=== PATIENT | male | born 1965 | race Caucasian/White ===

== ENCOUNTER → 2016-06-21 | Outpatient (CLI) | payer MEDICARE ==
--- NOTE | 2016-06-24 13:26 | XR ---
EXAMINATION TYPE: XR shoulder complete BILAT DATE OF EXAM: 06/21/2016 11:42 AM CLINICAL HISTORY: pain TECHNIQUE: Three views of the right shoulder are obtained. COMPARISON: None FINDINGS: There is no acute fracture/dislocation evident. The acromioclavicular and glenohumeral ashlee int spaces appear mildly narrowed. The visualized ribs are intact and unremarkable. IMPRESSION: 1. There is no acute fracture or dislocation. ICD 10 NO FRACTURE, INITIAL EVALUATION EXAMINATION TYPE: XR shoulder complete BILAT DATE OF EXAM: 06/21/2016 11:42 AM CLINICAL HISTORY: pain COMPARISON: NONE TECHNIQUE: Three views of the left shoulder are obtained. FINDINGS: There is no acute fracture/dislocation evident. The acromioclavicular and glenohumeral ashlee int spaces appear mildly narrowed. The visualized ribs are intact and unremarkable.
--- NOTE | 2016-06-24 13:28 | XR ---
EXAMINATION TYPE: XR Hip Bilateral Complete DATE OF EXAM: 06/21/2016 11:42 AM COMPARISON: NONE HISTORY: Hip pain TECHNIQUE: 2 views of the bilateral hips are submitted. FINDINGS: There is no evidence for fracture or dislocation. Hypertrophic changes are seen supra-aceta bular region likely resulting in bilateral femoral acetabular impingement. Hip joint spaces are intac t. No osseous lesions identified. IMPRESSION: Correlate for femoral acetabular impingement.
== END | disposition home or self-care (01) ==
LOC: RADXRYALE 11:16
PROVIDERS: ATTEND Family Medicine
DX: M25.551 Pain in right hip (principal); M25.552 Pain in left hip; M25.511 Pain in right shoulder; M25.512 Pain in left shoulder
CPT/HCPCS: 73521

== ENCOUNTER 2016-10-09 11:38 | Inpatient (IN) | payer MEDICARE ==
[2016-10-09] MEDS ORDERED: methylPREDNISolone SOD SUCCI 125 MG/2 ML VIAL IV STA (11:57)
[2016-10-09] MEDS ORDERED: IPRATROPIUM-ALBUTEROL 3 ML NEB INHALATION STA (11:57)
[2016-10-09] MEDS ORDERED: SODIUM CHLORIDE 0.9% 1,000 ML IV STA (11:57)
--- NOTE | 2016-10-09 11:57 | ED ---
SOB HPI - General Chief Complaint: Shortness of Breath Stated Complaint: cough,diff breathing Time Seen by Provider: 10/09/16 11:45 Source: patient, family, RN notes reviewed Mode of arrival: wheelchair Limitations: no limitations - History of Present Illness Initial Comments: Is a 50-year-old male with a history of COPD and 3 pneumothoraces who sent over by his doctor for evaluation for shortness of breath is been going on for several days. He has a cough with clear phlegm exertional dyspnea he states she 's chilled all a time he has no fevers or sweats. Chest pain. Just was not functioning very well is a decreased oral intake. MD Complaint: shortness of breath, cough - Related Data Home Medications Medication Instructions Recorded Confirmed Fluticasone/Salmeterol [Advair 1 inhalation PO RT-BID 10/09/16 10/09/16 250-50 Diskus] HYDROcodone/APAP 7.5-325MG [[place] 1 tab PO TID PRN 10/09/16 10/09/16 7.5-325] Tiotropium 18 Mcg/Puff [Spiriva] 1 cap INHALATION RT-DAILY 10/09/16 10/09/16 hydrOXYzine PAMOATE [Vistaril] 25 mg PO TID 10/09/16 10/09/16 Allergies Allergy/AdvReac Type Severity Reaction Status Date / Time No Known Allergies Allergy Verified 10/09/16 12:41 Review of Systems ROS Statement: Those systems with pertinent positive or pertinent negative responses have been documented in the HPI. ROS Other: All systems not noted in ROS Statement are negative. Past Medical History Past Medical History: COPD Additional Past Medical History / Comment(s): chronic hip pain, spontaneous pneumothorax x3 History of Any Multi-Drug Resistant Organisms: None Reported Additional Past Surgical History / Comment(s): chest tube Past Psychological History: Anxiety, Depression Smoking Status: Current every day smoker Past Alcohol Use History: None Reported Past Drug Use History: None Reported General Exam - General Exam Comments Initial Comments: This is a well-developed well-nourished awake alert oriented times female he is in apparent respiratory distress with dyspnea just with talking. Limitations: no limitations General appearance: alert, anxious, in distress Head exam: Present: atraumatic, normocephalic, normal inspection Eye exam: Present: normal appearance, PERRL, EOMI. Absent: scleral icterus, conjunctival injection, periorbital swelling ENT exam: Present: mucous membranes dry Neck exam: Present: normal inspection. Absent: tenderness, meningismus, lymphadenopathy Respiratory exam: Present: wheezes, rhonchi, decreased breath sounds. Absent: respiratory distress, rales, stridor Cardiovascular Exam: Present: normal rhythm, tachycardia, normal heart sounds. Absent: systolic murmur, diastolic murmur, rubs, gallop, clicks GI/Abdominal exam: Present: soft, normal bowel sounds. Absent: distended, tenderness, guarding, rebound, rigid Extremities exam: Present: normal inspection, full ROM, normal capillary refill. Absent: tenderness, pedal edema, joint swelling, calf tenderness Back exam: Present: normal inspection Neurological exam: Present: alert, oriented X3, CN II-XII intact Psychiatric exam: Present: normal affect, normal mood Skin exam: Present: warm, dry, intact, normal color. Absent: rash Course Vital Signs 10/09/16 10/09/16 10/09/16 11:40 11:43 12:13 Temperature 98.7 F Pulse Rate 106 H 116 H 100 Respiratory 27 H 26 H Rate Blood Pressure 101/59 109/56 O2 Sat by Pulse 98 85 L Oximetry 10/09/16 10/09/16 12:23 12:51 Temperature Pulse Rate 102 H 104 H Respiratory 20 Rate Blood Pressure 102/59 O2 Sat by Pulse 99 Oximetry - Reevaluation(s) Reevaluation #1: 10/09/16 14:42 Reevaluation patient reveals minimal improvement in his ability to breathe. Patient does state his blood pressure is always low Medical Decision Making - Medical Decision Making Reevaluation patient reveals that the patient is still having some difficulty with breathing. I did discuss the findings the patient and his family patient will be admitted for evaluation of pneumonia and COPD exacerbation. Is also demonstrate dehydration. And anemia. - Lab Data Result diagrams: 10/09/16 11:53 10/09/16 11:53 Lab Results 10/09/16 10/09/16 10/09/16 Range/Units 11:53 11:53 11:53 WBC 6.0 (3.8-10.6) k/uL RBC 2.72 L (4.30-5.90) m/uL Hgb 9.9 L (13.0-17.5) gm/dL Hct 29.1 L (39.0-53.0) % MCV 107.0 H (80.0-100.0) fL MCH 36.5 H (25.0-35.0) pg MCHC 34.1 (31.0-37.0) g/dL RDW 17.0 H (11.5-15.5) % Plt Count 237 (150-450) k/uL Neutrophils % 78 % Lymphocytes % 13 % Monocytes % 5 % Eosinophils % 1 % Basophils % 0 % Neutrophils # 4.7 (1.3-7.7) k/uL Lymphocytes # 0.8 L (1.0-4.8) k/uL Monocytes # 0.3 (0-1.0) k/uL Eosinophils # 0.1 (0-0.7) k/uL Basophils # 0.0 (0-0.2) k/uL Hypochromasia Slight Poikilocytosis Slight Anisocytosis Slight Macrocytosis Marked PT (9.0-12.0) sec INR (<1.1) APTT (22.0-30.0) sec D-Dimer (<0.60) mg/L FEU Sodium 137 (137-145) mmol/L Potassium 3.6 (3.5-5.1) mmol/L Chloride 99 (98-107) mmol/L Carbon Dioxide 24 (22-30) mmol/L Anion Gap 14 mmol/L BUN 20 (9-20) mg/dL Creatinine 0.70 (0.66-1.25) mg/dL Est GFR (MDRD) Af Amer >60 (>60 ml/min/1.73 sqM) Est GFR (MDRD) Non-Af >60 (>60 ml/min/1.73 sqM) Glucose 100 H (74-99) mg/dL Calcium 9.3 (8.4-10.2) mg/dL Magnesium 2.0 (1.6-2.3) mg/dL Total Bilirubin 1.8 H (0.2-1.3) mg/dL AST 27 (17-59) U/L ALT 17 L (21-72) U/L Alkaline Phosphatase 87 (38-126) U/L Total Creatine Kinase 50 L (55-170) U/L CK-MB (CK-2) 0.4 (0.0-2.4) ng/mL CK-MB (CK-2) Rel Index 0.8 Troponin I 0.035 H* (0.000-0.034) ng/mL NT-Pro-B Natriuret Pep pg/mL Total Protein 8.5 H (6.3-8.2) g/dL Albumin 4.3 (3.5-5.0) g/dL 10/09/16 10/09/16 Range/Units 11:53 11:53 WBC (3.8-10.6) k/uL RBC (4.30-5.90) m/uL Hgb (13.0-17.5) gm/dL Hct (39.0-53.0) % MCV (80.0-100.0) fL MCH (25.0-35.0) pg MCHC (31.0-37.0) g/dL RDW (11.5-15.5) % Plt Count (150-450) k/uL Neutrophils % % Lymphocytes % % Monocytes % % Eosinophils % % Basophils % % Neutrophils # (1.3-7.7) k/uL Lymphocytes # (1.0-4.8) k/uL Monocytes # (0-1.0) k/uL Eosinophils # (0-0.7) k/uL Basophils # (0-0.2) k/uL Hypochromasia Poikilocytosis Anisocytosis Macrocytosis PT 10.7 (9.0-12.0) sec INR 1.1 (<1.1) APTT 22.5 (22.0-30.0) sec D-Dimer 2.66 H (<0.60) mg/L FEU Sodium (137-145) mmol/L Potassium (3.5-5.1) mmol/L Chloride (98-107) mmol/L Carbon Dioxide (22-30) mmol/L Anion Gap mmol/L BUN (9-20) mg/dL Creatinine (0.66-1.25) mg/dL Est GFR (MDRD) Af Amer (>60 ml/min/1.73 sqM) Est GFR (MDRD) Non-Af (>60 ml/min/1.73 sqM) Glucose (74-99) mg/dL Calcium (8.4-10.2) mg/dL Magnesium (1.6-2.3) mg/dL Total Bilirubin (0.2-1.3) mg/dL AST (17-59) U/L ALT (21-72) U/L Alkaline Phosphatase (38-126) U/L Total Creatine Kinase (55-170) U/L CK-MB (CK-2) (0.0-2.4) ng/mL CK-MB (CK-2) Rel Index Troponin I (0.000-0.034) ng/mL NT-Pro-B Natriuret Pep 154 pg/mL Total Protein (6.3-8.2) g/dL Albumin (3.5-5.0) g/dL - EKG Data -: EKG Interpreted by Me EKG shows normal: sinus rhythm (Sinus tachycardia rate of 103. Interval 150 QRS of 82 QT/QTC of 334/437 rightward axis no acute ST-T wave changes) - Radiology Data Radiology results: report reviewed (I did review the imaging and reports on the x-ray weight lung field as well as opacified with patchy-appearing infiltrates. CAT scan was performed showed evidence of consolidation consistent with a pneumonia. No pulmonary embolism seen.), image reviewed Critical Care Time Critical Care Time: Yes Critical Care Time: 31 minutes of critical care time includes initial presentation with history physical labs and x-rays multiple re-evaluations patient response to therapy. Discussion with the admitting physician documentation the above admission orders Disposition Clinical Impression: Acute exacerbation of chronic obstructive airways disease, Adult respiratory distress syndrome, Right lower lobe pneumonia, Dehydration Disposition: ADMITTED IP TO THIS HOSP Condition: Stable Referrals: Yang Corrigan DO [Primary Care Provider] - 1-2 days
[2016-10-09 12:17] LABS: Anisocytosis Slight; Basophils % (A) 0 %; CH 35.7; CHCM 33.5; Eosinophils # (A) 0.1 k/uL (0-0.7); Eosinophils % (A) 1 %; HCT 29.1 % (39.0-53.0); HDW 3.57; HGB 9.9 gm/dL (13.0-17.5); Hypochromasia Slight; Luc # (Auto) 0.16; Luc % (Auto) 3; Lymphocytes # (A) 0.8 k/uL (1.0-4.8); Lymphocytes % (A) 13 %; MCH 36.5 pg (25.0-35.0); MCHC 34.1 g/dL (31.0-37.0); Macrocytosis Marked; Mean Platelet Volume 7.4; Monocytes # (A) 0.3 k/uL (0-1.0); Monocytes % (A) 5 %; Neutrophils # (A) 4.7 k/uL (1.3-7.7); Neutrophils % (A) 78 %; Poikilocytosis Slight; RBC 2.72 m/uL (4.30-5.90); WBC (Perox) 6.26
[2016-10-09 12:26] LABS: ALT 17 U/L (21-72); AST 27 U/L (17-59); Alkaline Phosphatase 87 U/L (38-126); Anion Gap 14 mmol/L; Blood Urea Nitrogen 20 mg/dL (9-20); Calcium 9.3 mg/dL (8.4-10.2); Carbon Dioxide 24 mmol/L (22-30); Chloride 99 mmol/L (98-107); Glucose 100 mg/dL (74-99); Non-African American GFR(MDRD) >60 (>60 ml/min/1.73 sqM); Potassium 3.6 mmol/L (3.5-5.1); Sodium 137 mmol/L (137-145); Total Bilirubin 1.8 mg/dL (0.2-1.3); Total Protein 8.5 g/dL (6.3-8.2)
[2016-10-09 12:38] LABS: INR 1.1 (<1.1); Partial Thromboplastin Time 22.5 sec (22.0-30.0); Prothrombin Time 10.7 sec (9.0-12.0)
[2016-10-09 12:54] LABS: Creatine Kinase MB 0.4 ng/mL (0.0-2.4)
[2016-10-09 12:56] LABS: Troponin I 0.035 ng/mL (0.000-0.034)
[2016-10-09] MEDS ORDERED: RX INFO: IV CONTRAST WAS GIVEN 1 EACH MISC MISCELLANE PRN (13:02)
--- NOTE | 2016-10-09 13:04 | XR ---
EXAMINATION TYPE: XR chest 2V DATE OF EXAM: 10/09/2016 HISTORY: difficulty breathing. REFERENCE: Previous study dated 02/13/2016. FINDINGS: The lungs are overinflated. There is worsening interstitial fibrosis. There is confluent ai rspace disease in the right upper lobe. I could not exclude superimposed pneumonia. There is evidence of old granulomatous disease. Heart size is normal. There is stable blunting of the right CP angle w hich likely reflects pleural thickening. IMPRESSION: 1. COPD. 2. I CANNOT EXCLUDE SUPERIMPOSED RIGHT UPPER LOBE PNEUMONIA. 3. EVIDENCE OF OLD GRANULOMATOUS DISEASE.
--- NOTE | 2016-10-09 13:53 | CT ---
EXAMINATION TYPE: CT angio chest DATE OF EXAM: 10/09/2016 1:38 PM COMPARISON: Previous study dated 02/16/2016 HISTORY: cough, elevated d dimer CT DLP: 126.7 mGycm Automated exposure control for dose reduction was used. CONTRAST: CTA scan of the thorax is performed with IV Contrast, patient injected with 100 mL of Omnipaque 350, pulmonary embolism protocol. . FINDINGS: There is extensive bullous change in the upper lobes bilaterally. There is dense consolidat ion in the posterior segment of the right upper lobe. There is also some consolidation in the right u pper lobe. The major bronchi are patent. There is extensive peripheral fibrosis. There is no significant axillary, mediastinal or hilar adenopathy. The aorta is normal in caliber wit hout evidence of dissection. There is no pleural or pericardial fluid. The heart is not enlarged. There is hypertrophic spondylosis within the spine. IMPRESSION: 1. THIS EXAMINATION IS NEGATIVE FOR PULMONARY EMBOLUS. 2. SEVERE COPD. 3. DENSE CONSOLIDATION OF THE POSTERIOR SEGMENT OF THE RIGHT UPPER LOBE. THIS LIKELY REFLECTS PNEUMON IA. 4. DEGENERATIVE CHANGES WITHIN THE SPINE.
[2016-10-09] MEDS ORDERED: LEVOFLOXACIN 750MG-D5W PMX 750 MG in DEXTROSE/WATER 1 150ML.BAG IVPB STA (14:43)
[2016-10-09] MEDS ORDERED: PNEUMONIA PROTOCOL UTILIZED 1 EACH MISC PO PRN (14:44)
[2016-10-09] MEDS ORDERED: PIPERACILLIN-TAZOBACTAM 3.375 GM in DEXTROSE/WATER 1 50ML.BAG IVPB ONE (15:30)
[2016-10-09] MEDS: IPRATROPIUM-ALBUTEROL 3 ML NEB INHALATION SCH ×3 (16:21→23:15)
[2016-10-09] MEDS: SODIUM CHLORIDE 0.9% 1,000 ML IV SCH (17:19)
[2016-10-09] MEDS ORDERED: methylPREDNISolone SOD SUCCI 125 MG/2 ML VIAL IV SCH (18:00)
[2016-10-09] MEDS: SYMBICORT 80-4.5 MCG INHALER INHALATION SCH (19:22)
[2016-10-09] MEDS: NICOTINE 21MG/24HR PATCH TRANSDERM SCH (20:04)
[2016-10-09] MEDS: HYDROcodone/APAP 7.5-325MG 1 EACH TAB PO PRN (20:04)
[2016-10-09] MEDS ORDERED: hydrOXYzine PAMOATE 25 MG CAP PO PRN (22:17)
[2016-10-09] MEDS ORDERED: ALPRAZolam 0.25 MG TAB PO PRN (22:18)
[2016-10-09] MEDS: HEPARIN SODIUM,PORCINE 5,000 UNIT/ML 1 ML VIAL SQ SCH (23:41)
[2016-10-10] MEDS: PIPERACILLIN-TAZOBACTAM 3.375 GM in DEXTROSE/WATER 1 50ML.BAG IVPB SCH ×3 (00:52→16:51)
[2016-10-10] MEDS: IPRATROPIUM-ALBUTEROL 3 ML NEB INHALATION SCH ×6 (03:43→23:44)
[2016-10-10 06:03] LABS: Anisocytosis Slight; Basophils % (A) 0 %; CH 35.4; CHCM 33.4; Eosinophils % (A) 0 %; HCT 24.8 % (39.0-53.0); HDW 3.64; HGB 8.5 gm/dL (13.0-17.5); Hypochromasia Slight; Luc # (Auto) 0.06; Luc % (Auto) 2; Lymphocytes # (A) 0.4 k/uL (1.0-4.8); Lymphocytes % (A) 12 %; MCH 36.4 pg (25.0-35.0); MCHC 34.2 g/dL (31.0-37.0); MCV 106.3 fL (80.0-100.0); Macrocytosis Moderate; Mean Platelet Volume 7.8; Monocytes # (A) 0.1 k/uL (0-1.0); Monocytes % (A) 4 %; Neutrophils % (A) 82 %; Poikilocytosis Slight; RBC 2.33 m/uL (4.30-5.90); RDW 16.7 % (11.5-15.5); WBC 3.6 k/uL (3.8-10.6); WBC (Perox) 3.67
[2016-10-10 06:15] LABS: Anion Gap 9 mmol/L; Blood Urea Nitrogen 17 mg/dL (9-20); Calcium 8.9 mg/dL (8.4-10.2); Carbon Dioxide 24 mmol/L (22-30); Chloride 104 mmol/L (98-107); Glucose 133 mg/dL (74-99); Non-African American GFR(MDRD) >60 (>60 ml/min/1.73 sqM); Potassium 3.7 mmol/L (3.5-5.1); Sodium 137 mmol/L (137-145)
[2016-10-10] MEDS: PANTOPRAZOLE 40 MG TABLET PO SCH (08:11)
[2016-10-10] MEDS: HYDROcodone/APAP 7.5-325MG 1 EACH TAB PO PRN ×3 (08:11→23:45)
[2016-10-10] MEDS: NICOTINE 21MG/24HR PATCH TRANSDERM SCH (08:11)
[2016-10-10] MEDS: HEPARIN SODIUM,PORCINE 5,000 UNIT/ML 1 ML VIAL SQ SCH ×2 (08:12→20:03)
--- NOTE | 2016-10-10 09:29 | HP ---
DATE OF ADMISSION: 10/09/2016 CHIEF COMPLAINT: Shortness of breath, cough and sputum. HISTORY OF PRESENT ILLNESS: This 50-year-old gentleman with a past medical history of multiple medical problems including chronic obstructive pulmonary disease, history of prostate disorder, history of chronic hip pain, spontaneous pneumothorax on the right side, history of chest tube times three being followed by Dr. Yang Corrigan in the outpatient setting moved from [place] a year ago. The patient lives alone in an apartment without any steps. The patient also had a home oxygen concentrator. The patient had progressively having dizziness, shortness of breath and cough and sputum. The patient came to [facility] and admitted to the hospital for further evaluation and treatment. 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 The evaluation showed chest x-ray showed right upper lobe pneumonia and evidence of old granulomatous disease was also noted and CT Angio showed severe COPD and dense consolidation of the posterior segment of the right upper lobe, pneumonia and DJD of the spine, the patient was admitted to the hospital for further evaluation and treatment. Patient had some also. There is no history of any rigors. No history of headache, 's loss of consciousness, or seizures. PAST MEDICAL HISTORY: COPD, prostate disorder, chronic hip pain, chronic respiratory failure, anxiety, depression. MEDICATIONS: Prior to admission include: 1. Vistaril 25 mg t.i.d. 2. Spiriva 1 puff daily. 3. [place] 7.25 t.i.d. p.r.n. 4. Advair 250/50 1 puff b.i.d. ALLERGIES: None. FAMILY HISTORY: History of cancer, coronary artery disease, lung cancer, lymphoma. Cancer. SOCIAL HISTORY: No history of alcohol intake. History of current smoker. REVIEW OF SYSTEMS: ENT: Diminishing hearing. Diminished vision. CARDIOVASCULAR: No angina or palpitations. RESPIRATORY: As mentioned earlier. GASTROINTESTINAL: No nausea or vomiting. GENITOURINARY: No dysuria. CENTRAL NERVOUS SYSTEM: As mentioned earlier. ALLERGY/IMMUNOLOGY: No asthma or hayfever. MUSCULOSKELETAL: As mentioned earlier. HEMATOLOGY/ONCOLOGY: No history of anemia. ENDOCRINE: No history of hypothyroidism and diabetes mellitus. CONSTITUTIONAL: As mentioned earlier. DERMATOLOGY: Negative. RHEUMATOLOGY: Negative. PSYCHIATRY: As mentioned earlier. PHYSICAL EXAMINATION: The patient is alert and oriented times three. Pulse 100. Blood pressure 120/77. Respiratory 18, temperature 97 degrees, pulse ox 97% on 2 liters. HEENT: Conjunctivae normal. Oral mucosa moist. NECK: No jugular venous distention. No lymph node enlargement. CARDIOVASCULAR SYSTEM: S1, S2 muffled. No S3, no S4. RESPIRATORY: Breath sounds diminished in the bases. Breathing efforts markedly increased. Bilateral scattered rhonchi. Expiratory wheezing and crackles, right more than left. ABDOMEN: Soft. Discomfort. Nontender. No mass palpable. LEGS: No edema. No swelling. CENTRAL NERVOUS SYSTEM: Higher function as mentioned. Moves all four limbs. No focal deficits. LYMPHATICS: No lymph nodes palpable in the neck, axillae or groin. SKIN: No ulcer, rash, bleeding. Labs at this time show WBC 6, hemoglobin 9.8. MCV 107. Otherwise is D. dimer is 2.66, total bilirubin 1.8. Troponin 0.35 and total protein 8.5. ASSESSMENT: 1. Chronic obstructive pulmonary disease acute exacerbation with acute bilateral pneumonia, right more than the left, possibly gram-negative with acute hypoxic respiratory failure, present on admission. 2. Rule out atypical organisms. 3. Weight loss with severe protein calorie malnutrition with body mass index 16.5 for evaluation. 4. Increased d. dimer without any evidence of pulmonary embolism. 5. Increased total bilirubin. 6. History of continued ongoing nicotine dependence. 7. Anemia, macrocytic. 8. History of prostate disorder. 9. History of chronic hypoxic respiratory failure on 2 liters nasal cannula. 10. History of spontaneous pneumothorax on the right side. 11. History of memory loss. 12. History of chest tube. 13. Anxiety, depression, not otherwise specified. 14. FULL CODE. RECOMMENDATIONS AND DISCUSSION: This 50-year-old gentleman who presented with multiple complex medical issues. We will monitor the patient closely. Continue the current medications and continue symptomatic treatment. Recommend broad-spectrum IV antibiotics, bronchodilators, hold steroids for now and continue to monitor. We will obtain Dr. Salinas's input and continue to monitor. Guarded prognosis because of multiple complex medical issues. The patient is being followed by. Resume the home medications. Deep venous thrombosis prophylaxis. See orders for further details. A copy of dictating being forwarded to Dr. Salinas who is the primary physician. Labs are ordered. Please refer to the chart for further details. Further recommendations to follow. MTDD
--- NOTE | 2016-10-10 09:35 | XR ---
EXAMINATION TYPE: XR chest 2V DATE OF EXAM: 10/10/2016 COMPARISON: 10/09/2016 HISTORY: 50-year-old male pneumonia TECHNIQUE: Frontal and lateral views FINDINGS: Heart is normal size. Aorta within normal limits. Surgical changes at the right apex. Hyperinflation and relative upper lung lucencies with emphysematous cysts seen in the upper lobes.. Similar to sligh tly increased infiltrate right upper lobe and similar at the right base. No pleural effusion. IMPRESSION: Advanced emphysema and similar to slightly increased extensive consolidation right upper lobe.
[2016-10-10] MEDS: SYMBICORT 80-4.5 MCG INHALER INHALATION SCH ×2 (13:18→20:30)
[2016-10-10] MEDS: SODIUM CHLORIDE 0.9% 1,000 ML IV SCH (13:44)
--- NOTE | 2016-10-10 16:34 | P.CNPUL ---
History of Present Illness Consult date: 10/10/16 Reason for consult: COPD, pneumonia History of present illness: A very pleasant 50-year-old male patient presented to the hospital because of worsening shortness of breath. The patient has advanced COPD and has been oxygen dependent and typically uses oxygen overnight. He also has been maintained on a combination of Spiriva and Advair. The patient has lived in [place] in the past and he also has lived briefly in [facility] and currently is in [place] for the past 1 year. He uses pro-air rescue inhaler on an as-needed basis. Denies having any previous of pneumonia. Approximately a week ago, he started having increased chest congestion, discomfort and pain over the right anterior chest area more so in the upper chest, and increased shortness of breath. Denied having any fever. Denied having any nausea vomiting or diarrhea. No reported change in mental status. 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 He came to the hospital for this problem and he was found to have an extensive right upper lobe pneumonia and the CAT scan of the chest showed extensive emphysematous changes bilaterally more so in the upper lobes. The patient tells me that he has been smoking still. He also has had previous history of bilateral pneumothoraces at the young age requiring breath or chest tube insertion and he has had chemical pleurodesis on the left. No aspiration. No travel history. No sick contacts. No fever. No chills. No hemoptysis. No pleurisy. Review of Systems All systems: negative Constitutional: Denies chills, Denies fever Eyes: denies blurred vision, denies pain Ears, nose, mouth and throat: Denies headache, Denies sore throat Cardiovascular: Denies chest pain, Denies shortness of breath Respiratory: Denies cough Gastrointestinal: Denies abdominal pain, Denies diarrhea, Denies nausea, Denies vomiting Musculoskeletal: Denies myalgias Integumentary: Denies pruritus, Denies rash Neurological: Denies numbness, Denies weakness Psychiatric: Denies anxiety, Denies depression Endocrine: Denies fatigue, Denies weight change Past Medical History Past Medical History: COPD, Prostate Disorder Additional Past Medical History / Comment(s): abdominal aortic aneurysm, difficulties with memory, chronic hypoxic respiratory failure, advanced COPD with upper lobe predominance, history of bilateral pneumothoraces at the young age requiring breath or chest tube insertion and pleurodesis. The patient also has BPH and chronic degenerative arthritis and hip pain on the right. History of Any Multi-Drug Resistant Organisms: None Reported Additional Past Surgical History / Comment(s): chest tube 3 x Past Anesthesia/Blood Transfusion Reactions: No Reported Reaction Additional Past Anesthesia/Blood Transfusion Reaction / Comment(s): pt stated he moved here from [place] a year ago. lives alone in [facility]-no steps. no outside services received. has home [employer] no pets. no past service. 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 Past Psychological History: Anxiety, Depression Additional Psychological History / Comment(s): pt denies wanting to harm self, stated some mild depression d/t not being able to do much d/t copd.(continues to smoke 1 ppd) Smoking Status: Current every day smoker Past Alcohol Use History: None Reported Past Drug Use History: None Reported - Past Family History Father History Unknown: Yes Mother Family Medical History: Cancer, Coronary Artery Disease (CAD) Additional Family Medical History / Comment(s): lung cancer, lynphoma, female cancer, Medications and Allergies Home Medications Medication Instructions Recorded Confirmed Type Fluticasone/Salmeterol [Advair 1 inhalation PO RT-BID 10/09/16 10/09/16 History 250-50 Diskus] HYDROcodone/APAP 7.5-325MG [[place] 1 tab PO TID PRN 10/09/16 10/09/16 History 7.5-325] Tiotropium 18 Mcg/Puff [Spiriva] 1 cap INHALATION RT-DAILY 10/09/16 10/09/16 History hydrOXYzine PAMOATE [Vistaril] 25 mg PO TID 10/09/16 10/09/16 History Allergies Allergy/AdvReac Type Severity Reaction Status Date / Time No Known Allergies Allergy Verified 10/09/16 12:41 Physical Exam Vitals: Vital Signs Temp Pulse Pulse Resp BP Pulse Ox 10/10/16 16:00 97.5 F L 97 20 95/54 97 10/10/16 13:35 85 10/10/16 13:20 98 10/10/16 11:31 96.6 F L 98 20 93/55 97 10/10/16 08:00 97.1 F L 99 20 92/55 99 10/10/16 04:00 96.5 F L 94 18 94/53 99 10/10/16 03:55 80 10/10/16 03:43 76 10/10/16 00:00 96.3 F L 89 18 113/56 93 L 10/09/16 23:27 84 10/09/16 23:16 80 10/09/16 20:00 97.0 F L 100 18 127/70 97 10/09/16 19:36 100 10/09/16 19:22 98 10/09/16 16:32 100 10/09/16 16:21 100 Intake and Output 10/10/16 10/10/16 10/10/16 06:59 14:59 22:59 Intake Total 850 1250 Output Total 325 Balance 850 925 Intake: IV 850 1250 Piperacillin-Tazobactam 3 50 50 .375 gm In Dextrose/Water 1 50ml.bag @ 12.5 mls/hr IVPB ONCE ONE Rx#: [id number] Sodium Chloride 0.9% 1, 800 1200 000 ml @ 100 mls/hr IV . Q10H EBONI Rx#:[id number] Output: Urine 325 Other: Voiding Method Urinal # Voids 2 Weight 60.6 kg 60.6 kg Patient Weight 10/11/16 06:59 Weight 60.6 kg Thin, comfortable likely distress not using his incentive muscles of breathing.Head exam was generally normal. There was no scleral icterus or corneal arcus. Mucous membranes were moist.Neck was supple and without jugular venous distension, thyromegaly, or carotid bruits. Carotids were easily palpable bilaterally. There was no adenopathy. Lung sounds are diminished bilaterally along with some few scattered expiratory wheezes heard throughout lung levine.Cardiac exam revealed the PMI to be normally situated and sized. The rhythm was regular and no extrasystoles were noted during several minutes of auscultation. The first and second heart sounds were normal and physiologic splitting of the second heart sound was noted. There were no murmurs, rubs, clicks, or gallops.Abdominal exam revealed normal bowel sounds. The abdomen was soft, non-tender, and without masses, organomegaly, or appreciable enlargement of the abdominal aorta. Examination of the extremities revealed easily palpable radial, femoral and pedal pulses. There was no cyanosis, clubbing or edema. Results - Laboratory Findings CBC and BMP: 10/10/16 05:35 10/10/16 05:35 PT/INR, D-dimer PT 10.7 sec (9.0-12.0) 10/09/16 11:53 INR 1.1 (<1.1) 10/09/16 11:53 D-Dimer 2.66 mg/L FEU (<0.60) H 10/09/16 11:53 Abnormal lab findings: Abnormal Labs 10/09/16 10/09/16 10/09/16 11:53 11:53 11:53 WBC RBC 2.72 L Hgb 9.9 L Hct 29.1 L MCV 107.0 H MCH 36.5 H RDW 17.0 H Lymphocytes # 0.8 L ESR D-Dimer Glucose 100 H Total Bilirubin 1.8 H ALT 17 L Total Creatine Kinase 50 L Troponin I 0.035 H* C-Reactive Protein Total Protein 8.5 H 10/09/16 10/09/16 10/10/16 11:53 11:53 05:35 WBC RBC Hgb Hct MCV MCH RDW Lymphocytes # ESR >140 H D-Dimer 2.66 H Glucose Total Bilirubin ALT Total Creatine Kinase Troponin I C-Reactive Protein 125.3 H Total Protein 10/10/16 10/10/16 05:35 05:35 WBC 3.6 L RBC 2.33 L Hgb 8.5 L Hct 24.8 L MCV 106.3 H MCH 36.4 H RDW 16.7 H Lymphocytes # 0.4 L ESR D-Dimer Glucose 133 H Total Bilirubin ALT Total Creatine Kinase Troponin I C-Reactive Protein Total Protein - Diagnostic Findings Chest x-ray: image reviewed CT scan - chest: image reviewed Assessment and Plan Plan: Assessment 1 acute COPD exacerbation with secondary shortness of breath 2 acute right upper lobe pneumonia. The patient has extensive consolidation of the right upper lobe. 3 advanced oxygen-dependent COPD with extensive emphysematous changes bilaterally more so in the upper lobes 4 history of bilateral pneumothoraces requiring chest tube insertion and pleurodesis 5 smoking 6 exertional dyspnea 7 weight loss Plan Agree on the current treatment. Continue Zosyn and Levaquin. Continue local rhinitis. Continue systemic steroids. Plan sputum Gram stain and culture. We' ll follow-up chest x-ray. Smoking cessation counseling was done. Outpatient medications are all appropriate. We'll follow.
[2016-10-10] MEDS: TIOTROPIUM 18 MCG/PUFF INHALER INHALATION SCH (16:41)
[2016-10-10] MEDS: LEVOFLOXACIN 750 MG TAB PO SCH (16:50)
--- NOTE | 2016-10-10 20:59 | P.CONS ---
History of Present Illness - Reason for Consult Consult date: 10/10/16 - Chief Complaint Progressive shortness of breath - History of Present Illness 50-year-old male who has evidence of oxygen dependent COPD with history of spontaneous pneumothorax from the right lung follows with Dr. Yang Christianson. The patient is originally from [place]. He had been here visiting family members a couple years ago and noticed while he was here he felt considerably better. He constantly moved to this area to be close to his brother. Shortly after arrival his respiratory status did improve and was feeling better for a bit. Relates he's had some exacerbations of his COPD since here at this is the first time in the last. He is actually had hospitalization. He relates that over the weekend he did some grilling and spent some time outside. Shortly thereafter he had increasing shortness of breath cough fever and malaise. He felt considerably worse and was seen in the outpatient office. He comes of his significant shortness of breath and tachycardia he was admitted to hospital for further intervention. The patient is feeling slightly better at this point in time. He is less short of breath is long as he doesn't have any activity. He relates even minimal exertion makes him more short of breath and his heart rate increases. He is denying chest pain at this time. He was having a large amount of sputum production that has now tapered off since coming to hospital. He is denying hemoptysis. In general he is noting fatigue but has a good appetite. His lost weight over time due to his pulmonary disease. Review of Systems 50-year-old male who looks older than his stated age seems to be comfortable at this time HEENT:Denies headache or acute visual change. Denies sinus or mouth discomforts. Denies neck stiffness or pain. Denies significant oral cavity pain. Denies difficulty on swallowing. Lungs: As per the HPI Cardiovascular: Denies chest pain at this time. No syncope. Does have dyspnea on exertion. It does not have PND does not have orthopnea. Gastrointestinal:Denies nausea, vomiting, diarrhea, constipation, hematemesis, melena, hematochezia. No no significant change of bowel habit noticed. Musculoskeletal: denies significant myalgias or arthralgias. No new joint swelling. Denies new back pain. Skin: Denies new rash or lesions. No new ulcers or wounds are related.. Neuro: Denies headache or visual change. Denies any new onset weakness or difficulty with ambulation. Denies falls or seizures. Psychiatric:Denies anxiety or depression. Endocrine: His had progressive weight loss and increasing fatigue over the last several months Past Medical History Past Medical History: COPD, Prostate Disorder Additional Past Medical History / Comment(s): abdominal aortic aneurysm, difficulties with memory, chronic hypoxic respiratory failure, advanced COPD with upper lobe predominance, history of bilateral pneumothoraces at the young age requiring breath or chest tube insertion and pleurodesis. The patient also has BPH and chronic degenerative arthritis and hip pain on the right. History of Any Multi-Drug Resistant Organisms: None Reported Additional Past Surgical History / Comment(s): chest tube 3 x Past Anesthesia/Blood Transfusion Reactions: No Reported Reaction Additional Past Anesthesia/Blood Transfusion Reaction / Comm: pt stated he moved here from [place] a year ago. lives alone in [facility]-no steps. no outside services received. has home /[facility]. no pets. no past service. 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 Past Psychological History: Anxiety, Depression Additional Psychological History / Comment(s): pt denies wanting to harm self, stated some mild depression d/t not being able to do much d/t copd.(continues to smoke 1 ppd). As noted continues to smoke despite his oxygen-dependent COPD. Alcohol use or abuse. Denies recreational drug use. No experience. No international travel. No animal exposures. Is not and has no children Smoking Status: Current every day smoker Past Alcohol Use History: None Reported Past Drug Use History: None Reported - Past Family History Father History Unknown: Yes Mother Family Medical History: Cancer, Coronary Artery Disease (CAD) Additional Family Medical History / Comment(s): lung cancer, lynphoma, female cancer, Medications and Allergies Home Medications and Allergies Comment(s): Current Medications Hydrocodone Bitart/Acetaminophen (Card[place] 7.5-325) 1 each PO TID PRN PRN Reason: Pain Last Admin: 10/10/16 16:50 Dose: 1 each Albuterol/Ipratropium (Duoneb 0.5 Mg-3 Mg/3 Ml Soln) 3 ml INHALATION RT-Q4H EBONI Last Admin: 10/10/16 20:30 Dose: 3 ml Alprazolam (Xanax) 0.25 mg PO TID PRN PRN Reason: Anxiety Budesonide/Formoterol Fumarate (Symbicort 80-4.5 Mcg Inhaler) 2 puff INHALATION RT-BID [facility] Last Admin: 10/10/16 20:30 Dose: 2 puff Heparin Sodium (Porcine) (Heparin) 5,000 unit SQ Q12HR [facility] Last Admin: 10/10/16 20:03 Dose: 5,000 unit Hydromorphone HCl (Dilaudid) 0.5 mg IVP Q6HR PRN PRN Reason: Severe Pain Hydroxyzine Pamoate (Vistaril) 25 mg PO TID PRN PRN Reason: Itching Piperacillin/Tazobactam/ (Dextrose 3.375 gm/ IV Solution) 50 mls @ 12.5 mls/hr IVPB Q8HR [facility] Stop: 10/19/16 00:01 Last Admin: 10/10/16 16:51 Dose: 12.5 mls/hr Sodium Chloride (Saline 0.9%) 1,000 mls @ 100 mls/hr IV .Q10H [facility] Last Admin: 10/10/16 13:44 Dose: 100 mls/hr Levofloxacin (Levaquin) 750 mg PO DAILY@1500 [facility] Stop: 10/15/16 15:01 Last Admin: 10/10/16 16:50 Dose: 750 mg Miscellaneous Information (Rx Info: Iv Contrast Was Given) 1 each MISCELLANE DAILY PRN PRN Reason: Per Protocol Stop: 10/11/16 13:02 Miscellaneous Information (Pneumonia Protocol Utilized) 1 each PO ONCE PRN PRN Reason: Per Protocol Nicotine (Habitrol 21mg/24hr Patch) 1 patch TRANSDERM DAILY [facility] Last Admin: 10/10/16 08:11 Dose: 1 patch Pantoprazole Sodium (Protonix) 40 mg PO AC-BRKFST [facility] Last Admin: 10/10/16 08:11 Dose: 40 mg Temazepam (Restoril) 15 mg PO HS PRN PRN Reason: Insomnia Tiotropium [place] (Spiriva) 1 puff INHALATION RT-DAILY [facility] Last Admin: 10/10/16 16:41 Dose: Not Given Home Medications Medication Instructions Recorded Confirmed Type Fluticasone/Salmeterol [Advair 1 inhalation PO RT-BID 10/09/16 10/09/16 History 250-50 Diskus] HYDROcodone/APAP 7.5-325MG [[place] 1 tab PO TID PRN 10/09/16 10/09/16 History 7.5-325] Tiotropium 18 Mcg/Puff [Spiriva] 1 cap INHALATION RT-DAILY 10/09/16 10/09/16 History hydrOXYzine PAMOATE [Vistaril] 25 mg PO TID 10/09/16 10/09/16 History Allergies Allergy/AdvReac Type Severity Reaction Status Date / Time No Known Allergies Allergy Verified 10/09/16 12:41 Physical Exam Vitals: Vital Signs Temp Pulse Pulse Resp BP Pulse Ox 10/10/16 20:33 95 10/10/16 20:00 97.1 F L 98 18 94/50 100 10/10/16 16:59 94 10/10/16 16:44 109 H 10/10/16 16:00 97.5 F L 97 20 95/54 97 10/10/16 13:35 85 10/10/16 13:20 98 10/10/16 11:31 96.6 F L 98 20 93/55 97 10/10/16 08:00 97.1 F L 99 20 92/55 99 10/10/16 04:00 96.5 F L 94 18 94/53 99 10/10/16 03:55 80 10/10/16 03:43 76 10/10/16 00:00 96.3 F L 89 18 113/56 93 L 10/09/16 23:27 84 10/09/16 23:16 80 Intake and Output 10/10/16 10/10/16 10/10/16 06:59 14:59 22:59 Intake Total 850 1710 Output Total 325 600 Balance 850 1385 -600 Intake: IV 850 1250 Piperacillin-Tazobactam 3 50 50 .375 gm In Dextrose/Water 1 50ml.bag @ 12.5 mls/hr IVPB ONCE ONE Rx#: [id number] Sodium Chloride 0.9% 1, 800 1200 000 ml @ 100 mls/hr IV . Q10H EBONI Rx#:[id number] Oral 460 Output: Urine 325 600 Other: Voiding Method Urinal Urinal # Voids 2 Weight 60.6 kg 60.6 kg Patient Weight 10/11/16 06:59 Weight 60.6 kg 50-year-old male appears older than his stated age. Is comfortable since he is resting quietly. Is a very thin build not cachectic HEENT: Anicteric conjunctiva are pink and moist nasal mucosa grossly intact without significant lesions, there is no thrush. Fully edentulous no thrush Neck: The neck is supple without significant lymphadenopathy or thyromegaly. Lungs: There is symmetrical air entry. Expiratory wheezes are through the lung levine. Crackles at the bases. Few bronchial sounds are heard in the right lateral upper posterior aspect of the chest no dullness or egophony is noted Heart: Regular rate and rhythm with an audible S1-S2, no S3 no S4. There is no significant murmur click or rub, PMI was nondisplaced. Abdomen: Positive bowel sounds soft and nontender without palpable masses or organomegaly. There was no guarding or rebound. Extremities: The upper extremities have excellent pulses they are symmetric, no significant petechiae or telangiectasia. No splinter hemorrhages were noted. The lower extremities are free from significant edema. The peripheral pulses were 2+ and symmetric. Neuro: Awake alert oriented to person place and time. There are no acute new gross focal sensory motor deficits. Results CBC & Chem 7: 10/10/16 05:35 10/10/16 05:35 Labs: Abnormal Lab Results - Last 24 Hours (Table) 10/09/16 10/10/16 10/10/16 Range/Units 11:53 05:35 05:35 WBC 3.6 L (3.8-10.6) k/uL RBC 2.33 L (4.30-5.90) m/uL Hgb 8.5 L (13.0-17.5) gm/dL Hct 24.8 L (39.0-53.0) % MCV 106.3 H (80.0-100.0) fL MCH 36.4 H (25.0-35.0) pg RDW 16.7 H (11.5-15.5) % Lymphocytes # 0.4 L (1.0-4.8) k/uL ESR >140 H (0-15) mm/hr Glucose (74-99) mg/dL C-Reactive Protein 125.3 H (<10.0) mg/L 10/10/16 Range/Units 05:35 WBC (3.8-10.6) k/uL RBC (4.30-5.90) m/uL Hgb (13.0-17.5) gm/dL Hct (39.0-53.0) % MCV (80.0-100.0) fL MCH (25.0-35.0) pg RDW (11.5-15.5) % Lymphocytes # (1.0-4.8) k/uL ESR (0-15) mm/hr Glucose 133 H (74-99) mg/dL C-Reactive Protein (<10.0) mg/L Microbiology - Last 24 Hours (Table) 10/09/16 11:53 Blood Culture - Preliminary Blood No Growth after 24 hours Laboratory Results WBC 3.6 k/uL (3.8-10.6) L 10/10/16 05:35 RBC 2.33 m/uL (4.30-5.90) L 10/10/16 05:35 Hgb 8.5 gm/dL (13.0-17.5) L 10/10/16 05:35 Hct 24.8 % (39.0-53.0) L 10/10/16 05:35 MCV 106.3 fL (80.0-100.0) H 10/10/16 05:35 MCH 36.4 pg (25.0-35.0) H 10/10/16 05:35 MCHC 34.2 g/dL (31.0-37.0) 10/10/16 05:35 RDW 16.7 % (11.5-15.5) H 10/10/16 05:35 Plt Count 198 k/uL (150-450) 10/10/16 05:35 Neutrophils % 82 % 10/10/16 05:35 Lymphocytes % 12 % 10/10/16 05:35 Monocytes % 4 % 10/10/16 05:35 Eosinophils % 0 % 10/10/16 05:35 Basophils % 0 % 10/10/16 05:35 Neutrophils # 3.0 k/uL (1.3-7.7) 10/10/16 05:35 Lymphocytes # 0.4 k/uL (1.0-4.8) L 10/10/16 05:35 Monocytes # 0.1 k/uL (0-1.0) 10/10/16 05:35 Eosinophils # 0.0 k/uL (0-0.7) 10/10/16 05:35 Basophils # 0.0 k/uL (0-0.2) 10/10/16 05:35 Hypochromasia Slight 10/10/16 05:35 Poikilocytosis Slight 10/10/16 05:35 Anisocytosis Slight 10/10/16 05:35 Macrocytosis Moderate 10/10/16 05:35 ESR >140 mm/hr (0-15) H 10/10/16 05:35 PT 10.7 sec (9.0-12.0) 10/09/16 11:53 INR 1.1 (<1.1) 10/09/16 11:53 APTT 22.5 sec (22.0-30.0) 10/09/16 11:53 D-Dimer 2.66 mg/L FEU (<0.60) H 10/09/16 11:53 Sodium 137 mmol/L (137-145) 10/10/16 05:35 Potassium 3.7 mmol/L (3.5-5.1) 10/10/16 05:35 Chloride 104 mmol/L (98-107) 10/10/16 05:35 Carbon Dioxide 24 mmol/L (22-30) 10/10/16 05:35 Anion Gap 9 mmol/L 10/10/16 05:35 BUN 17 mg/dL (9-20) 10/10/16 05:35 Creatinine 0.70 mg/dL (0.66-1.25) 10/10/16 05:35 Est GFR (MDRD) Af Amer >60 (>60 ml/min/1.73 sqM) 10/10/16 05:35 Est GFR (MDRD) Non-Af >60 (>60 ml/min/1.73 sqM) 10/10/16 05:35 Glucose 133 mg/dL (74-99) H 10/10/16 05:35 Calcium 8.9 mg/dL (8.4-10.2) 10/10/16 05:35 Magnesium 2.0 mg/dL (1.6-2.3) 10/09/16 11:53 Total Bilirubin 1.8 mg/dL (0.2-1.3) H 10/09/16 11:53 AST 27 U/L (17-59) 10/09/16 11:53 ALT 17 U/L (21-72) L 10/09/16 11:53 Alkaline Phosphatase 87 U/L (38-126) 10/09/16 11:53 Total Creatine Kinase 50 U/L (55-170) L 10/09/16 11:53 CK-MB (CK-2) 0.4 ng/mL (0.0-2.4) 10/09/16 11:53 CK-MB (CK-2) Rel Index 0.8 10/09/16 11:53 Troponin I 0.035 ng/mL (0.000-0.034) H* 10/09/16 11:53 C-Reactive Protein 125.3 mg/L (<10.0) H 10/09/16 11:53 NT-Pro-B Natriuret Pep 154 pg/mL 10/09/16 11:53 Total Protein 8.5 g/dL (6.3-8.2) H 10/09/16 11:53 Albumin 4.3 g/dL (3.5-5.0) 10/09/16 11:53 Microbiology 10/09/16 11:53 Blood Blood Culture - Preliminary No Growth after 24 hours Assessment and Plan (1) Right upper lobe pneumonia Narrative/Plan: 50-year-old male who has oxygen-dependent advanced COPD presents to hospital with the rapid onset of shortness of breath and large amounts of sputum production. He was at home trying to manage himself and he became much more short of breath and presented to Hospital. There is evidence of the right upper lobe posterior segment pneumonia without evidence of pulmonary embolus. The patient is being treated with antibiotic therapy with Zosyn and Levaquin until there is further data. In general he feels slightly better than admission but is still weak. The trip to the bathroom was exhausting for him and he was very short of breath. He is with well controlled pain. It does not feel like he didn't pass with his pneumothorax. COPD is being treated and smoking cessation was discussed at length and its link to his current disease state. Patch is in place and he relates to some willingness to consider smoking cessation Patient is evidence of anemia studies will be obtained there is evidence of significantly elevated sed rate and CRP. Possible underlying pneumonia but also query the possibility of a different inflammatory process, with his weight loss but concerned to an underlying undetected malignancy at this time. Cultures for further help direct antibiotic therapy. High-protein supplements are suggested. Status: Acute (2) Acute exacerbation of chronic obstructive airways disease Status: Acute (3) Weight loss Status: Acute (4) Anemia Status: Acute
[2016-10-10] MEDS: TEMAZEPAM 15 MG CAP PO PRN (23:46)
[2016-10-11] MEDS: PIPERACILLIN-TAZOBACTAM 3.375 GM in DEXTROSE/WATER 1 50ML.BAG IVPB SCH ×4 (00:13→23:16)
[2016-10-11] MEDS: SODIUM CHLORIDE 0.9% 1,000 ML IV SCH ×4 (03:06→17:52)
[2016-10-11] MEDS: IPRATROPIUM-ALBUTEROL 3 ML NEB INHALATION SCH ×5 (03:38→20:55)
[2016-10-11 06:32] LABS: Reticulocyte % 3.7 % (0.5-2.0)
[2016-10-11] MEDS: PANTOPRAZOLE 40 MG TABLET PO SCH (06:37)
[2016-10-11 06:47] LABS: Anion Gap 7 mmol/L; Blood Urea Nitrogen 12 mg/dL (9-20); Calcium 8.5 mg/dL (8.4-10.2); Carbon Dioxide 28 mmol/L (22-30); Chloride 108 mmol/L (98-107); Glucose 87 mg/dL (74-99); Non-African American GFR(MDRD) >60 (>60 ml/min/1.73 sqM); Potassium 3.7 mmol/L (3.5-5.1); Sodium 143 mmol/L (137-145)
[2016-10-11 06:50] LABS: CH 35.1; HCT 23.2 % (39.0-53.0); HDW 3.63; HGB 7.4 gm/dL (13.0-17.5); MCH 35.3 pg (25.0-35.0); MCHC 32.1 g/dL (31.0-37.0); MCV 110.3 fL (80.0-100.0); Mean Platelet Volume 7.3; Poikilocytosis Slight; WBC 4.7 k/uL (3.8-10.6); WBC (Perox) 4.97
[2016-10-11 07:11] LABS: Anisocytosis Slight; Basophils % (A) 0 %; Eosinophils % (A) 1 %; Hypochromasia Moderate; Luc # (Auto) 0.06; Luc % (Auto) 1; Lymphocytes # (A) 1.5 k/uL (1.0-4.8); Lymphocytes % (A) 32 %; Macrocytosis Marked; Monocytes # (A) 0.3 k/uL (0-1.0); Monocytes % (A) 5 %; Neutrophils # (A) 2.9 k/uL (1.3-7.7); Neutrophils % (A) 61 %
[2016-10-11 07:29] LABS: HIV-1/HIV-2 Ab Screen NONREAC (NON REAC)
--- NOTE | 2016-10-11 07:49 | PN ---
DATE OF SERVICE: 10/10/2016 This 50-year-old gentleman admitted with shortness of breath, cough and sputum is being evaluated for atypical pneumonia. The chest showed bilateral shadows, right more than the left. Patient is having significant shortness of breath. Patient also has COPD also. CAT scan also showed extensive emphysematous changes as well. Patient also has history of bilateral pneumothoraces requiring pleurodesis and also some chest tube insertion also. PAST MEDICAL HISTORY: Reviewed. REVIEW OF SYSTEMS: CARDIOVASCULAR: No angina or palpitations. RESPIRATORY: As mentioned earlier. GI: As mentioned earlier. : No dysuria. NERVOUS SYSTEM: No numbness or weakness. Current medications are reviewed and include: 1. [place] 7.5 q.i.d. p.r.n. 2. Xanax 0.5 t.i.d. 3. Symbicort 80/4.5 two puffs b.i.d. 4. Heparin 5000 subQ b.i.d. 5. Dilaudid 0.5 q.6 p.r.n. 6. Vistaril 25 mg t.i.d. p.r.n. 7. Levaquin 750 p.o. daily. 8. Habitrol 14 daily. 9. Protonix. 10. Zosyn 3.6 IV q.8. 11. Restoril 50 mg q.6. 12. Spiriva 1 puff daily. PHYSICAL EXAMINATION: The patient is alert and oriented x3. Pulse 97, blood pressure 95/54, respirations 20, temperature is 97.4, pulse ox 97% on 2 L. HEENT: Conjunctivae normal. NECK: No jugular venous distension. CARDIOVASCULAR SYSTEM: S1, S2, muffled. RESPIRATORY: Breath sounds diminished at the bases. A few scattered rhonchi, no crackles. Expiratory wheezing also present. ABDOMEN: Soft, nontender, no mass palpable. LEGS: No edema, no swelling. NERVOUS SYSTEM: Higher functions as mentioned, moves all 4 limbs, no focal deficits. SKIN: No rash, ulcer or bleeding. Patient is significantly emaciated. Labs are WBC 3.6, hemoglobin is 8.5 and d-dimer is 2.66 and glucose 133. ASSESSMENT: 1. Severe chronic obstructive pulmonary disease acute exacerbation, with acute bilateral pneumonia, right more than the left, possibly gram-negative with acute hypoxic respiratory failure, present on admission. 2. Rule out atypical pneumonia. 3. Weight loss and severe protein calorie malnutrition with body mass index of 16.5, for evaluation. 4. Increased d-dimer without any evidence of pulmonary embolism. 5. Increased total bilirubin. 6. Continued ongoing nicotine dependence. 7. Anemia, macrocytic. 8. History of prostate disorder. 9. History of chronic obstructive respiratory failure on home oxygen 2 L nasal cannula. 10. History of spontaneous pneumothorax on the right side. 11. History of memory loss. 12. History of chest tube drainage. 13. Anxiety, depression not otherwise specified. 14. FULL CODE. RECOMMENDATION: Recommend to continue with current medication, continue with monitoring and symptomatic treatment. Otherwise, at this time I would recommend continue with the bronchodilators. The overall prognosis guarded because of multiple complex medical issues, discussed with Dr. Salinas. Continue with the antibiotics. Further recommendations to follow.
[2016-10-11] MEDS: HYDROcodone/APAP 7.5-325MG 1 EACH TAB PO PRN (07:55)
[2016-10-11] MEDS: HEPARIN SODIUM,PORCINE 5,000 UNIT/ML 1 ML VIAL SQ SCH ×2 (07:57→20:56)
[2016-10-11] MEDS: NICOTINE 21MG/24HR PATCH TRANSDERM SCH (07:57)
[2016-10-11] MEDS: SYMBICORT 80-4.5 MCG INHALER INHALATION SCH ×2 (08:59→20:55)
[2016-10-11] MEDS: TIOTROPIUM 18 MCG/PUFF INHALER INHALATION SCH (09:08)
[2016-10-11 10:45] LABS: Manual Review Performed
[2016-10-11] MEDS: HYDROmorphone 1 MG/ML 1 ML SYRINGE IVP PRN ×2 (11:08→22:11)
--- NOTE | 2016-10-11 12:29 | P.PN ---
Subjective A very pleasant 50-year-old male patient presented to the hospital because of worsening shortness of breath. The patient has advanced COPD and has been oxygen dependent and typically uses oxygen overnight. He also has been maintained on a combination of Spiriva and Advair. The patient has lived in [place] in the past and he also has lived briefly in [facility] and currently is in [place] for the past 1 year. He uses pro-air rescue inhaler on an as-needed basis. Denies having any previous of pneumonia. Approximately a week ago, he started having increased chest congestion, discomfort and pain over the right anterior chest area more so in the upper chest, and increased shortness of breath. Denied having any fever. Denied having any nausea vomiting or diarrhea. No reported change in mental status. 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 He came to the hospital for this problem and he was found to have an extensive right upper lobe pneumonia and the CAT scan of the chest showed extensive emphysematous changes bilaterally more so in the upper lobes. The patient tells me that he has been smoking still. He also has had previous history of bilateral pneumothoraces at the young age requiring breath or chest tube insertion and he has had chemical pleurodesis on the left. No aspiration. No travel history. No sick contacts. No fever. No chills. No hemoptysis. No pleurisy. The patient is seen again today 10/11/2016 in follow-up on the selective care unit. He is doing better today as compared to yesterday. He is still dyspneic on minimal exertion. Continues with a loose productive cough. He has been seen and evaluated by infectious disease as well. He remains on Zosyn and Levaquin. Continue with his current COPD exacerbation medications as well. Objective - Vital Signs Vital signs: Vital Signs Temp 97.1 F L 10/11/16 12:00 Pulse 100 10/11/16 12:20 Resp 20 10/11/16 12:00 BP 98/51 10/11/16 12:00 Pulse Ox 95 10/11/16 12:00 Intake & Output 10/10/16 10/11/16 10/11/16 18:59 06:59 18:59 Intake Total 1710 850 850 Output Total 925 Balance 785 850 850 Weight 60.6 kg Intake: IV 1250 850 850 Piperacillin-Tazobactam 3 50 .375 gm In Dextrose/Water 1 50ml.bag @ 12.5 mls/hr IVPB ONCE ONE Rx#: [id number] Piperacillin-Tazobactam 3 50 50 .375 gm In Dextrose/Water 1 50ml.bag @ 12.5 mls/hr IVPB Q8HR EBONI Rx#: [id number] Sodium Chloride 0.9% 1, 1200 800 800 000 ml @ 100 mls/hr IV . Q10H EBONI Rx#:[id number] Oral 460 Output: Urine 925 Other: Voiding Method Urinal Urinal # Voids 1 - Exam Thin, comfortable likely distress not using his incentive muscles of breathing.Head exam was generally normal. There was no scleral icterus or corneal arcus. Mucous membranes were moist.Neck was supple and without jugular venous distension, thyromegaly, or carotid bruits. Carotids were easily palpable bilaterally. There was no adenopathy. Lung sounds are diminished bilaterally along with some few scattered expiratory wheezes heard throughout lung levine.Cardiac exam revealed the PMI to be normally situated and sized. The rhythm was regular and no extrasystoles were noted during several minutes of auscultation. The first and second heart sounds were normal and physiologic splitting of the second heart sound was noted. There were no murmurs, rubs, clicks, or gallops.Abdominal exam revealed normal bowel sounds. The abdomen was soft, non-tender, and without masses, organomegaly, or appreciable enlargement of the abdominal aorta. Examination of the extremities revealed easily palpable radial, femoral and pedal pulses. There was no cyanosis, clubbing or edema. - Labs CBC & Chem 7: 10/11/16 06:03 10/11/16 06:03 Labs: Abnormal Lab Results - Last 24 Hours (Table) 10/11/16 10/11/16 10/11/16 Range/Units 06:03 06:03 06:03 RBC 2.10 L (4.30-5.90) m/uL Hgb 7.4 L (13.0-17.5) gm/dL Hct 23.2 L (39.0-53.0) % MCV 110.3 H (80.0-100.0) fL MCH 35.3 H (25.0-35.0) pg RDW 17.0 H (11.5-15.5) % Retic Count 3.7 H (0.5-2.0) % Chloride 108 H (98-107) mmol/L Microbiology - Last 24 Hours (Table) 10/10/16 11:32 Gram Stain - Preliminary Sputum 10/10/16 18:47 Urine Culture - Preliminary Urine,Voided 10/09/16 11:53 Blood Culture - Preliminary Blood No Growth after 24 hours Assessment and Plan Plan: Assessment 1 acute COPD exacerbation with secondary shortness of breath 2 acute right upper lobe pneumonia. The patient has extensive consolidation of the right upper lobe. 3 advanced oxygen-dependent COPD with extensive emphysematous changes bilaterally more so in the upper lobes 4 history of bilateral pneumothoraces requiring chest tube insertion and pleurodesis 5 smoking 6 exertional dyspnea 7 weight loss Plan The patient was seen and evaluated by Dr. Salinas. He is doing better today as compared to yesterday. We'll continue with his current treatments. We'll increase his activity as tolerated. We'll continue to follow. We'll repeat his chest x-ray in the a.m.
--- NOTE | 2016-10-11 12:56 | P.PN ---
Subjective Principal diagnosis: Shortness of breath and pneumonia 50-year-old male who has evidence of oxygen dependent COPD with history of spontaneous pneumothorax from the right lung follows with Dr. Yang Christianson. The patient is originally from [place]. He had been here visiting family members a couple years ago and noticed while he was here he felt considerably better. He constantly moved to this area to be close to his brother. Shortly after arrival his respiratory status did improve and was feeling better for a bit. Relates he's had some exacerbations of his COPD since here at this is the first time in the last. He is actually had hospitalization. He relates that over the weekend he did some grilling and spent some time outside. Shortly thereafter he had increasing shortness of breath cough fever and malaise. He felt considerably worse and was seen in the outpatient office. He comes of his significant shortness of breath and tachycardia he was admitted to hospital for further intervention. The patient is feeling slightly better at this point in time. He is less short of breath is long as he doesn't have any activity. He relates even minimal exertion makes him more short of breath and his heart rate increases. He is denying chest pain at this time. He was having a large amount of sputum production that has now tapered off since coming to hospital. He is denying hemoptysis. In general he is noting fatigue but has a good appetite. His lost weight over time due to his pulmonary disease. Does feel somewhat better today Lesch short of breath but still has a large amount of sputum production. No hemoptysis. Objective - Vital Signs Vital signs: Vital Signs Temp 97.1 F L 10/11/16 12:00 Pulse 102 H 10/11/16 12:32 Resp 20 10/11/16 12:00 BP 98/51 10/11/16 12:00 Pulse Ox 95 10/11/16 12:00 Intake & Output 10/10/16 10/11/16 10/11/16 18:59 06:59 18:59 Intake Total 1710 850 850 Output Total 925 Balance 785 850 850 Weight 60.6 kg Intake: IV 1250 850 850 Piperacillin-Tazobactam 3 50 .375 gm In Dextrose/Water 1 50ml.bag @ 12.5 mls/hr IVPB ONCE ONE Rx#: [id number] Piperacillin-Tazobactam 3 50 50 .375 gm In Dextrose/Water 1 50ml.bag @ 12.5 mls/hr IVPB Q8HR EBONI Rx#: [id number] Sodium Chloride 0.9% 1, 1200 800 800 000 ml @ 100 mls/hr IV . Q10H EBONI Rx#:[id number] Oral 460 Output: Urine 925 Other: Voiding Method Urinal Urinal # Voids 1 - Exam 50-year-old male appears older than his stated age. Is comfortable since he is resting quietly. Is a very thin build not cachectic HEENT: Anicteric conjunctiva are pink and moist nasal mucosa grossly intact without significant lesions, there is no thrush. Fully edentulous no thrush Neck: The neck is supple without significant lymphadenopathy or thyromegaly. Lungs: There is symmetrical air entry. Expiratory wheezes are through the lung levine. Crackles at the bases. Few bronchial sounds are heard in the right lateral upper posterior aspect of the chest no dullness or egophony is noted Heart: Regular rate and rhythm with an audible S1-S2, no S3 no S4. There is no significant murmur click or rub, PMI was nondisplaced. Abdomen: Positive bowel sounds soft and nontender without palpable masses or organomegaly. There was no guarding or rebound. Extremities: The upper extremities have excellent pulses they are symmetric, no significant petechiae or telangiectasia. No splinter hemorrhages were noted. The lower extremities are free from significant edema. The peripheral pulses were 2+ and symmetric. Neuro: Awake alert oriented to person place and time. There are no acute new gross focal sensory motor deficits. - Labs CBC & Chem 7: 10/11/16 06:03 10/11/16 06:03 Labs: Abnormal Lab Results - Last 24 Hours (Table) 10/11/16 10/11/16 10/11/16 Range/Units 06:03 06:03 06:03 RBC 2.10 L (4.30-5.90) m/uL Hgb 7.4 L (13.0-17.5) gm/dL Hct 23.2 L (39.0-53.0) % MCV 110.3 H (80.0-100.0) fL MCH 35.3 H (25.0-35.0) pg RDW 17.0 H (11.5-15.5) % Retic Count 3.7 H (0.5-2.0) % Chloride 108 H (98-107) mmol/L Microbiology - Last 24 Hours (Table) 10/10/16 11:32 Gram Stain - Preliminary Sputum 10/10/16 18:47 Urine Culture - Preliminary Urine,Voided 10/09/16 11:53 Blood Culture - Preliminary Blood No Growth after 24 hours Laboratory Results WBC 4.7 k/uL (3.8-10.6) 10/11/16 06:03 RBC 2.10 m/uL (4.30-5.90) L 10/11/16 06:03 Hgb 7.4 gm/dL (13.0-17.5) L 10/11/16 06:03 Hct 23.2 % (39.0-53.0) L 10/11/16 06:03 MCV 110.3 fL (80.0-100.0) H 10/11/16 06:03 MCH 35.3 pg (25.0-35.0) H 10/11/16 06:03 MCHC 32.1 g/dL (31.0-37.0) 10/11/16 06:03 RDW 17.0 % (11.5-15.5) H 10/11/16 06:03 Plt Count 205 k/uL (150-450) 10/11/16 06:03 Neutrophils % 61 % 10/11/16 06:03 Lymphocytes % 32 % 10/11/16 06:03 Monocytes % 5 % 10/11/16 06:03 Eosinophils % 1 % 10/11/16 06:03 Basophils % 0 % 10/11/16 06:03 Neutrophils # 2.9 k/uL (1.3-7.7) 10/11/16 06:03 Lymphocytes # 1.5 k/uL (1.0-4.8) 10/11/16 06:03 Monocytes # 0.3 k/uL (0-1.0) 10/11/16 06:03 Eosinophils # 0.0 k/uL (0-0.7) 10/11/16 06:03 Basophils # 0.0 k/uL (0-0.2) 10/11/16 06:03 Manual Slide Review Performed 10/11/16 06:03 Hypochromasia Moderate 10/11/16 06:03 Poikilocytosis Slight 10/11/16 06:03 Poikilocytosis (manual Present 10/11/16 06:03 Anisocytosis Slight 10/11/16 06:03 Macrocytosis Marked 10/11/16 06:03 ESR >140 mm/hr (0-15) H 10/10/16 05:35 Retic Count 3.7 % (0.5-2.0) H 10/11/16 06:03 PT 10.7 sec (9.0-12.0) 10/09/16 11:53 INR 1.1 (<1.1) 10/09/16 11:53 APTT 22.5 sec (22.0-30.0) 10/09/16 11:53 D-Dimer 2.66 mg/L FEU (<0.60) H 10/09/16 11:53 Sodium 143 mmol/L (137-145) 10/11/16 06:03 Potassium 3.7 mmol/L (3.5-5.1) 10/11/16 06:03 Chloride 108 mmol/L (98-107) H 10/11/16 06:03 Carbon Dioxide 28 mmol/L (22-30) 10/11/16 06:03 Anion Gap 7 mmol/L 10/11/16 06:03 BUN 12 mg/dL (9-20) 10/11/16 06:03 Creatinine 0.82 mg/dL (0.66-1.25) 10/11/16 06:03 Est GFR (MDRD) Af Amer >60 (>60 ml/min/1.73 sqM) 10/11/16 06:03 Est GFR (MDRD) Non-Af >60 (>60 ml/min/1.73 sqM) 10/11/16 06:03 Glucose 87 mg/dL (74-99) 10/11/16 06:03 Calcium 8.5 mg/dL (8.4-10.2) 10/11/16 06:03 Magnesium 2.0 mg/dL (1.6-2.3) 10/09/16 11:53 Total Bilirubin 1.8 mg/dL (0.2-1.3) H 10/09/16 11:53 AST 27 U/L (17-59) 10/09/16 11:53 ALT 17 U/L (21-72) L 10/09/16 11:53 Alkaline Phosphatase 87 U/L (38-126) 10/09/16 11:53 Total Creatine Kinase 50 U/L (55-170) L 10/09/16 11:53 CK-MB (CK-2) 0.4 ng/mL (0.0-2.4) 10/09/16 11:53 CK-MB (CK-2) Rel Index 0.8 10/09/16 11:53 Troponin I 0.035 ng/mL (0.000-0.034) H* 10/09/16 11:53 C-Reactive Protein 125.3 mg/L (<10.0) H 10/09/16 11:53 NT-Pro-B Natriuret Pep 154 pg/mL 10/09/16 11:53 Total Protein 8.5 g/dL (6.3-8.2) H 10/09/16 11:53 Albumin 4.3 g/dL (3.5-5.0) 10/09/16 11:53 HIV-1 Ab Supplemental TNP 10/10/16 05:35 HIV-2 Ab Supplemental TNP 10/10/16 05:35 HIV 1&2 Ag/Ab, 4th Gen NONREAC (NON REAC) 10/10/16 05:35 Microbiology 10/10/16 11:32 Sputum Gram Stain - Preliminary 10/10/16 18:47 Urine,Voided Urine Culture - Preliminary 10/09/16 11:53 Blood Blood Culture - Preliminary No Growth after 24 hours Assessment and Plan (1) Right upper lobe pneumonia Narrative/Plan: 50-year-old male who has oxygen-dependent advanced COPD presents to hospital with the rapid onset of shortness of breath and large amounts of sputum production. He was at home trying to manage himself and he became much more short of breath and presented to Hospital. There is evidence of the right upper lobe posterior segment pneumonia without evidence of pulmonary embolus. The patient is being treated with antibiotic therapy with Zosyn and Levaquin until there is further data. In general he feels slightly better than admission but is still weak. The trip to the bathroom was exhausting for him and he was very short of breath. He is with well controlled pain. It does not feel like he didn't pass with his pneumothorax. COPD is being treated and smoking cessation was discussed at length and its link to his current disease state. Patch is in place and he relates to some willingness to consider smoking cessation Patient is evidence of anemia studies will be obtained there is evidence of significantly elevated sed rate and CRP. Possible underlying pneumonia but also query the possibility of a different inflammatory process, with his weight loss but concerned to an underlying undetected malignancy at this time. Cultures for further help todirect antibiotic therapy. High-protein supplements are suggested. Status: Acute (2) Acute exacerbation of chronic obstructive airways disease Status: Acute (3) Weight loss Status: Acute (4) Anemia Status: Acute
[2016-10-11] MEDS: LEVOFLOXACIN 750 MG TAB PO SCH (15:23)
--- NOTE | 2016-10-11 20:21 | PN ---
DATE OF SERVICE: 10/10/2016 This 50-year-old gentleman admitted with history of chronic obstructive pulmonary disease, acute exacerbation, also had pneumonia also. The patient was seen by Dr. Salinas and Dr. Meza also. The patient being closely monitored at this time. Chest CT did not show any evidence of acute pulmonary embolism. The patient also had multiple history of pneumothorax also. No fever. No cough. On exam, alert and oriented times three. Pulse 92, blood pressure ntd , respirations 18. Temperature 97.3. Pulse ox 99% on 2 L. HEENT: Conjunctivae normal. NECK: No jugular venous distention. CARDIOVASCULAR: S1, S2. RESPIRATORY: Breath sounds diminished at the bases. Bilateral scattered rhonchi and expiratory wheezing and crackles. ABDOMEN: Soft, nontender. LEGS: No edema. No swelling. CENTRAL NERVOUS SYSTEM: No focal deficits. LABS: WBC 4.7, hemoglobin is 7.4, MCV 110, sodium 140, potassium 3.7, TIBC 182, vitamin B12 307. Folate is 5.81. HIV is nonreactive. ASSESSMENT: 1. Chronic obstructive pulmonary disease chronic obstructive pulmonary disease, acute exacerbation, with acute bilateral pneumonia, right more than left, possibly gram-negative hypoxic respiratory failure, present on admission. 2. History of weight loss and severe protein calorie malnutrition with body mass index of 16.5. 3. Increased d-dimer without any evidence of pulmonary embolism. 4. Increased total bilirubin. 5. Continued ongoing nicotine dependence, macrocytic. 6. History of prostate disorder. A history of chronic respiratory failure on home oxygen 2 liters nasal cannula. 7. History of spontaneous right site. 8. History of chest tube drainage. 9. History of memory loss. 10. Anxiety, depression, not treatment. Otherwise. 11. FULL CODE. RECOMMENDATIONS AND DISCUSSION: In this 50 -year-old gentleman who presented with multiple complex medical issues, we will monitor the patient closely, continue the current medications, continue with symptomatic treatment, continue broad spectrum IV antibiotics and continue with bronchodilators and closely follow with infectious disease and continue to follow. Guarded prognosis because of the multiple complex medical issues. Further recommendations to follow. MTDD
[2016-10-11] MEDS: guaiFENesin 600 MG TABLET.ER PO SCH (22:07)
[2016-10-11] MEDS: TEMAZEPAM 15 MG CAP PO PRN (22:11)
[2016-10-12] MEDS: SODIUM CHLORIDE 0.9% 1,000 ML IV SCH ×3 (06:22→22:59)
--- NOTE | 2016-10-12 07:41 | XR ---
EXAMINATION TYPE: XR chest 1V portable DATE OF EXAM: 10/12/2016 CLINICAL HISTORY: Difficulty breathing progress study. TECHNIQUE: Single AP portable upright view of the chest is obtained. COMPARISON: Chest x-ray from 2 days earlier. Older x-rays back through February 13, 2016. CTA chest 3 days earlier. FINDINGS: Cardiac silhouette size is stable and within normal limits. Atherosclerotic changes seen i n aortic knob. There is chronic emphysematous change with right apical fibrosis and scarring. There i s persistent interstitial fibrosis most pronounced in the lower lungs and more focal right basilar la teral scarring. There is persistent right upper lobe posterior opacity or consolidation new from olde r exams. Osseous structures are intact. IMPRESSION: Overall stable findings from most recent study, advanced emphysematous change with scat tered fibrosis and more acute right upper lobe pneumonic consolidation redemonstrated. No new infiltr ate is seen.
[2016-10-12 08:08] LABS: Anisocytosis Slight; Basophils % (A) 0 %; CH 35.1; CHCM 31.1; Eosinophils # (A) 0.1 k/uL (0-0.7); Eosinophils % (A) 3 %; HCT 25.9 % (39.0-53.0); HDW 3.21; Hypochromasia Moderate; Luc # (Auto) 0.11; Luc % (Auto) 3; Lymphocytes % (A) 26 %; MCH 35.1 pg (25.0-35.0); MCV 113.3 fL (80.0-100.0); Macrocytosis Marked; Mean Platelet Volume 7.7; Monocytes # (A) 0.2 k/uL (0-1.0); Monocytes % (A) 5 %; Neutrophils # (A) 2.5 k/uL (1.3-7.7); Neutrophils % (A) 63 %; RBC 2.29 m/uL (4.30-5.90); RDW 17.3 % (11.5-15.5); WBC (Perox) 4.13
[2016-10-12 08:20] LABS: Anion Gap 7 mmol/L; Blood Urea Nitrogen 10 mg/dL (9-20); Calcium 8.4 mg/dL (8.4-10.2); Carbon Dioxide 28 mmol/L (22-30); Chloride 103 mmol/L (98-107); Glucose 83 mg/dL (74-99); Non-African American GFR(MDRD) >60 (>60 ml/min/1.73 sqM); Potassium 3.5 mmol/L (3.5-5.1); Sodium 138 mmol/L (137-145)
[2016-10-12] MEDS: PANTOPRAZOLE 40 MG TABLET PO SCH (08:34)
[2016-10-12] MEDS: HEPARIN SODIUM,PORCINE 5,000 UNIT/ML 1 ML VIAL SQ SCH ×2 (08:34→21:30)
[2016-10-12] MEDS: guaiFENesin 600 MG TABLET.ER PO SCH ×2 (08:34→21:30)
[2016-10-12] MEDS: PIPERACILLIN-TAZOBACTAM 3.375 GM in DEXTROSE/WATER 1 50ML.BAG IVPB SCH ×3 (08:34→22:58)
[2016-10-12] MEDS: NICOTINE 21MG/24HR PATCH TRANSDERM SCH (08:34)
[2016-10-12] MEDS: HYDROcodone/APAP 7.5-325MG 1 EACH TAB PO PRN ×2 (08:38→21:30)
[2016-10-12] MEDS: IPRATROPIUM-ALBUTEROL 3 ML NEB INHALATION SCH ×4 (08:56→18:59)
[2016-10-12] MEDS: SYMBICORT 80-4.5 MCG INHALER INHALATION SCH ×2 (08:57→18:59)
[2016-10-12] MEDS: TIOTROPIUM 18 MCG/PUFF INHALER INHALATION SCH (08:57)
--- NOTE | 2016-10-12 13:27 | P.PN ---
Subjective A very pleasant 50-year-old male patient presented to the hospital because of worsening shortness of breath. The patient has advanced COPD and has been oxygen dependent and typically uses oxygen overnight. He also has been maintained on a combination of Spiriva and Advair. The patient has lived in [place] in the past and he also has lived briefly in [facility] and currently is in [place] for the past 1 year. He uses pro-air rescue inhaler on an as-needed basis. Denies having any previous of pneumonia. Approximately a week ago, he started having increased chest congestion, discomfort and pain over the right anterior chest area more so in the upper chest, and increased shortness of breath. Denied having any fever. Denied having any nausea vomiting or diarrhea. No reported change in mental status. 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 He came to the hospital for this problem and he was found to have an extensive right upper lobe pneumonia and the CAT scan of the chest showed extensive emphysematous changes bilaterally more so in the upper lobes. The patient tells me that he has been smoking still. He also has had previous history of bilateral pneumothoraces at the young age requiring breath or chest tube insertion and he has had chemical pleurodesis on the left. No aspiration. No travel history. No sick contacts. No fever. No chills. No hemoptysis. No pleurisy. The patient is seen again today 10/11/2016 in follow-up on the selective care unit. He is doing better today as compared to yesterday. He is still dyspneic on minimal exertion. Continues with a loose productive cough. He has been seen and evaluated by infectious disease as well. He remains on Zosyn and Levaquin. Continue with his current COPD exacerbation medications as well. The patient was seen again today 10/12/2016 in follow-up on the regular medical floor. He is currently resting quite comfortably in bed. He states he is breathing easier today as compared to yesterday. He's been up ambulating with assistance without significant dyspnea. He continues to maintain O2 saturations in the low 90s on 2 L/m cannula. He is afebrile. Hemoglobin stable at 8.0. No leukocytosis. He remains on Zosyn and Levaquin. Objective - Vital Signs Vital signs: Vital Signs Temp 97.3 F L 10/12/16 07:00 Pulse 92 10/12/16 12:40 Resp 21 10/12/16 07:00 BP 89/55 10/12/16 07:00 Pulse Ox 91 L 10/12/16 07:00 Intake & Output 10/11/16 10/12/16 10/12/16 18:59 06:59 18:59 Intake Total 1700 850 Output Total 900 1300 800 Balance 800 -450 -800 Weight 64.5 kg Intake: IV 1700 Piperacillin-Tazobactam 3 100 .375 gm In Dextrose/Water 1 50ml.bag @ 12.5 mls/hr IVPB Q8HR EBONI Rx#: [id number] Sodium Chloride 0.9% 1, 1600 000 ml @ 100 mls/hr IV . Q10H EBONI Rx#:[id number] Intake, IV Titration 850 Amount Piperacillin-Tazobactam 3 50 .375 gm In Dextrose/Water 1 50ml.bag @ 12.5 mls/hr IVPB Q8HR EBONI Rx#: [id number] Sodium Chloride 0.9% 1, 800 000 ml @ 100 mls/hr IV . Q10H EBONI Rx#:[id number] Output: Urine 900 1300 800 Other: Voiding Method Urinal # Voids 3 - Exam Thin, comfortable likely distress not using his incentive muscles of breathing.Head exam was generally normal. There was no scleral icterus or corneal arcus. Mucous membranes were moist.Neck was supple and without jugular venous distension, thyromegaly, or carotid bruits. Carotids were easily palpable bilaterally. There was no adenopathy. Lung sounds are diminished bilaterally along with some few scattered expiratory wheezes heard throughout lung levine.Cardiac exam revealed the PMI to be normally situated and sized. The rhythm was regular and no extrasystoles were noted during several minutes of auscultation. The first and second heart sounds were normal and physiologic splitting of the second heart sound was noted. There were no murmurs, rubs, clicks, or gallops.Abdominal exam revealed normal bowel sounds. The abdomen was soft, non-tender, and without masses, organomegaly, or appreciable enlargement of the abdominal aorta. Examination of the extremities revealed easily palpable radial, femoral and pedal pulses. There was no cyanosis, clubbing or edema. - Labs CBC & Chem 7: 10/12/16 07:29 10/12/16 07:29 Labs: Abnormal Lab Results - Last 24 Hours (Table) 10/11/16 10/12/16 10/12/16 Range/Units 06:03 07:29 07:29 RBC 2.29 L (4.30-5.90) m/uL Hgb 8.0 L (13.0-17.5) gm/dL Hct 25.9 L (39.0-53.0) % MCV 113.3 H (80.0-100.0) fL MCH 35.1 H (25.0-35.0) pg RDW 17.3 H (11.5-15.5) % Creatinine 0.63 L (0.66-1.25) mg/dL TIBC 182 L (261-462) ug/dL % Saturation 61.0 H (20-50) % Microbiology - Last 24 Hours (Table) 10/10/16 11:32 Gram Stain - Final Sputum Sputum Culture - Final 10/10/16 18:47 Urine Culture - Final Urine,Voided 10/09/16 11:53 Blood Culture - Preliminary Blood No Growth after 48 hours Assessment and Plan Plan: Assessment 1 acute COPD exacerbation with secondary shortness of breath 2 acute right upper lobe pneumonia. The patient has extensive consolidation of the right upper lobe. 3 advanced oxygen-dependent COPD with extensive emphysematous changes bilaterally more so in the upper lobes 4 history of bilateral pneumothoraces requiring chest tube insertion and pleurodesis 5 smoking 6 exertional dyspnea 7 weight loss Plan The patient was seen and evaluated by Dr. Salinas. His chest x-ray and labs were reviewed. Not much improvement in his x-ray today. He is doing better today as compared to yesterday. We will continue with his current antibiotics. We'll continue his COPD medications including bronchodilators, Symbicort and Spiriva. He is again educated regarding the importance of complete smoking cessation. Habitrol patch remains in place. We'll increase his activity as tolerated. We'll continue to follow.
[2016-10-12] MEDS: LEVOFLOXACIN 750 MG TAB PO SCH (14:19)
[2016-10-12] MEDS: HYDROmorphone 1 MG/ML 1 ML SYRINGE IVP PRN ×2 (14:22→23:08)
[2016-10-12] MEDS: TEMAZEPAM 15 MG CAP PO PRN (21:31)
[2016-10-13] MEDS: IPRATROPIUM-ALBUTEROL 3 ML NEB INHALATION SCH ×4 (07:14→19:43)
[2016-10-13] MEDS: SYMBICORT 80-4.5 MCG INHALER INHALATION SCH ×2 (07:14→19:43)
[2016-10-13] MEDS: TIOTROPIUM 18 MCG/PUFF INHALER INHALATION SCH (07:14)
[2016-10-13] MEDS: guaiFENesin 600 MG TABLET.ER PO SCH ×2 (07:48→21:02)
[2016-10-13] MEDS: PIPERACILLIN-TAZOBACTAM 3.375 GM in DEXTROSE/WATER 1 50ML.BAG IVPB SCH ×3 (07:49→23:08)
[2016-10-13] MEDS: HEPARIN SODIUM,PORCINE 5,000 UNIT/ML 1 ML VIAL SQ SCH ×2 (07:49→21:05)
[2016-10-13] MEDS: SODIUM CHLORIDE 0.9% 1,000 ML IV SCH ×2 (07:49→18:20)
[2016-10-13] MEDS: PANTOPRAZOLE 40 MG TABLET PO SCH (07:49)
[2016-10-13] MEDS: HYDROmorphone 1 MG/ML 1 ML SYRINGE IVP PRN ×3 (07:54→20:58)
--- NOTE | 2016-10-13 08:43 | PN ---
DATE OF SERVICE: 10/12/2016 This 50-year-old gentleman who was admitted with COPD acute exacerbation and as well as acute bilateral pneumonia, right more than left, is being closely monitored at this time. The patient also has tiredness and weakness. The cough and shortness of breath appears to be improving. The most recent chest x-ray done today showed stable findings. On exam, alert and oriented times three. Pulse is 101, blood pressure 90/52, respiratory rate 20, temperature 97.3, pulse ox 90% on 2 L. HEENT: Conjunctivae normal. CARDIOVASCULAR: S1, S2. RESPIRATORY: A few scattered rhonchi and crackles. ABDOMEN: Soft, nontender. CENTRAL NERVOUS SYSTEM: No focal deficits. LABS: WBC ntd, hemoglobin 8, sodium 130, potassium 3.5. ASSESSMENT: 1. Chronic obstructive pulmonary disease, acute exacerbation, with acute bilateral pneumonia, right more than the left possibly gram-negative with acute hypoxic respiratory failure, present on admission. 2. History of severe protein calorie malnutrition. Body mass index 16.5, present on admission. 3. Increased d-dimer without any evidence of pulmonary embolism. 4. Increased total bilirubin. 5. Continued ongoing nicotine dependence. 6. Macrocytosis. 7. History of prostate disorder. 8. History of chronic respiratory failure with home oxygen 2 liters nasal cannula. 9. History of spontaneous pneumothorax on the right side. 10. History of chest tube drainage. 11. History of memory loss. 12. Anxiety, depression not otherwise specified. 13. FULL CODE. RECOMMENDATIONS AND DISCUSSION: Continue current medications. Continue with monitoring. Symptomatic treatment. Otherwise, see orders for further details. Prognosis guarded. Further recommendations to follow. MTDD
[2016-10-13] MEDS: NICOTINE 21MG/24HR PATCH TRANSDERM SCH (09:03)
[2016-10-13 09:04] LABS: Anisocytosis Slight; Basophils % (A) 0 %; CH 35.3; Eosinophils # (A) 0.2 k/uL (0-0.7); Eosinophils % (A) 3 %; HCT 25.2 % (39.0-53.0); Hypochromasia Slight; Luc % (Auto) 2; Lymphocytes # (A) 0.9 k/uL (1.0-4.8); Lymphocytes % (A) 19 %; MCH 35.3 pg (25.0-35.0); MCHC 31.8 g/dL (31.0-37.0); MCV 110.9 fL (80.0-100.0); Macrocytosis Marked; Mean Platelet Volume 7.3; Monocytes # (A) 0.2 k/uL (0-1.0); Monocytes % (A) 4 %; Neutrophils # (A) 3.5 k/uL (1.3-7.7); Neutrophils % (A) 72 %; RBC 2.27 m/uL (4.30-5.90); RDW 17.1 % (11.5-15.5); WBC 4.8 k/uL (3.8-10.6); WBC (Perox) 5.19
[2016-10-13 09:20] LABS: Anion Gap 7 mmol/L; Blood Urea Nitrogen 10 mg/dL (9-20); Calcium 8.3 mg/dL (8.4-10.2); Carbon Dioxide 27 mmol/L (22-30); Chloride 103 mmol/L (98-107); Glucose 104 mg/dL (74-99); Non-African American GFR(MDRD) >60 (>60 ml/min/1.73 sqM); Potassium 3.5 mmol/L (3.5-5.1); Sodium 137 mmol/L (137-145)
[2016-10-13] MEDS: HYDROcodone/APAP 7.5-325MG 1 EACH TAB PO PRN ×2 (11:29→19:49)
--- NOTE | 2016-10-13 13:06 | P.PN ---
Subjective A very pleasant 50-year-old male patient presented to the hospital because of worsening shortness of breath. The patient has advanced COPD and has been oxygen dependent and typically uses oxygen overnight. He also has been maintained on a combination of Spiriva and Advair. The patient has lived in [place] in the past and he also has lived briefly in [facility] and currently is in [place] for the past 1 year. He uses pro-air rescue inhaler on an as-needed basis. Denies having any previous of pneumonia. Approximately a week ago, he started having increased chest congestion, discomfort and pain over the right anterior chest area more so in the upper chest, and increased shortness of breath. Denied having any fever. Denied having any nausea vomiting or diarrhea. No reported change in mental status. 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 He came to the hospital for this problem and he was found to have an extensive right upper lobe pneumonia and the CAT scan of the chest showed extensive emphysematous changes bilaterally more so in the upper lobes. The patient tells me that he has been smoking still. He also has had previous history of bilateral pneumothoraces at the young age requiring breath or chest tube insertion and he has had chemical pleurodesis on the left. No aspiration. No travel history. No sick contacts. No fever. No chills. No hemoptysis. No pleurisy. The patient is seen again today 10/11/2016 in follow-up on the selective care unit. He is doing better today as compared to yesterday. He is still dyspneic on minimal exertion. Continues with a loose productive cough. He has been seen and evaluated by infectious disease as well. He remains on Zosyn and Levaquin. Continue with his current COPD exacerbation medications as well. The patient was seen again today 10/12/2016 in follow-up on the regular medical floor. He is currently resting quite comfortably in bed. He states he is breathing easier today as compared to yesterday. He's been up ambulating with assistance without significant dyspnea. He continues to maintain O2 saturations in the low 90s on 2 L/m cannula. He is afebrile. Hemoglobin stable at 8.0. No leukocytosis. He remains on Zosyn and Levaquin. On the patient is doing extremely well. No specific complaints. Still on Zosyn and Levaquin combination. No shortness of breath. Resting comfortably in bed. Still on oxygen at 2 L/m nasal cannula and the pulse ox is above 90% at all times. Ambulating. A repeat chest x-ray will be obtained for tomorrow. Objective - Vital Signs Vital signs: Vital Signs Temp 98.3 F 10/13/16 07:00 Pulse 82 10/13/16 11:22 Resp 21 10/13/16 07:00 BP 97/53 10/13/16 07:00 Pulse Ox 94 L 10/13/16 07:00 Intake & Output 10/12/16 10/13/16 10/13/16 18:59 06:59 18:59 Output Total 800 1000 Balance -800 -1000 Weight 63.5 kg Output: Urine 800 1000 Other: # Voids 2 2 - Exam Thin, comfortable likely distress not using his incentive muscles of breathing.Head exam was generally normal. There was no scleral icterus or corneal arcus. Mucous membranes were moist.Neck was supple and without jugular venous distension, thyromegaly, or carotid bruits. Carotids were easily palpable bilaterally. There was no adenopathy. Lung sounds are diminished bilaterally along with some few scattered expiratory wheezes heard throughout lung levine.Cardiac exam revealed the PMI to be normally situated and sized. The rhythm was regular and no extrasystoles were noted during several minutes of auscultation. The first and second heart sounds were normal and physiologic splitting of the second heart sound was noted. There were no murmurs, rubs, clicks, or gallops.Abdominal exam revealed normal bowel sounds. The abdomen was soft, non-tender, and without masses, organomegaly, or appreciable enlargement of the abdominal aorta. Examination of the extremities revealed easily palpable radial, femoral and pedal pulses. There was no cyanosis, clubbing or edema. - Labs CBC & Chem 7: 10/13/16 08:05 10/13/16 08:07 Labs: Abnormal Lab Results - Last 24 Hours (Table) 10/13/16 10/13/16 Range/Units 08:05 08:07 RBC 2.27 L (4.30-5.90) m/uL Hgb 8.0 L (13.0-17.5) gm/dL Hct 25.2 L (39.0-53.0) % MCV 110.9 H (80.0-100.0) fL MCH 35.3 H (25.0-35.0) pg RDW 17.1 H (11.5-15.5) % Lymphocytes # 0.9 L (1.0-4.8) k/uL Creatinine 0.62 L (0.66-1.25) mg/dL Glucose 104 H (74-99) mg/dL Calcium 8.3 L (8.4-10.2) mg/dL Microbiology - Last 24 Hours (Table) 10/09/16 11:53 Blood Culture - Preliminary Blood No Growth after 72 hours 10/10/16 11:32 Gram Stain - Final Sputum Sputum Culture - Final Assessment and Plan Plan: Assessment 1 acute COPD exacerbation with secondary shortness of breath, improving 2 acute right upper lobe pneumonia. The patient has extensive consolidation of the right upper lobe. 3 advanced oxygen-dependent COPD with extensive emphysematous changes bilaterally more so in the upper lobes 4 history of bilateral pneumothoraces requiring chest tube insertion and pleurodesis 5 smoking 6 exertional dyspnea 7 weight loss Plan Agree on the current treatment. Continue Zosyn and Levaquin. Repeat chest x- ray in a.m. We'll follow.
--- NOTE | 2016-10-13 14:04 | XR ---
EXAMINATION TYPE: XR chest 2V DATE OF EXAM: 10/13/2016 COMPARISON: Yesterday HISTORY: Pneumonia TECHNIQUE: Frontal and lateral views of the chest are obtained. FINDINGS: There is patchy bilateral pulmonary consolidation worse on the right side. This is more in the right upper lobe. Heart size is normal. There is no heart failure. There are emphysematous park es in the upper lobes. There is slight blunting of right costophrenic angle. IMPRESSION: COPD. Bilateral pneumonia and worse the right upper lobe. Small right pleural effusion. No change compared to yesterday.
[2016-10-13] MEDS: LEVOFLOXACIN 750 MG TAB PO SCH (15:38)
[2016-10-13] MEDS: TEMAZEPAM 15 MG CAP PO PRN (21:04)
[2016-10-13] MEDS: IPRATROPIUM-ALBUTEROL 3 ML NEB INHALATION PRN (23:14)
[2016-10-14] MEDS: SODIUM CHLORIDE 0.9% 1,000 ML IV SCH ×3 (01:08→23:47)
[2016-10-14] MEDS: HYDROmorphone 1 MG/ML 1 ML SYRINGE IVP PRN ×2 (06:24→19:30)
[2016-10-14] MEDS: PIPERACILLIN-TAZOBACTAM 3.375 GM in DEXTROSE/WATER 1 50ML.BAG IVPB SCH ×3 (08:02→23:46)
[2016-10-14] MEDS: NICOTINE 21MG/24HR PATCH TRANSDERM SCH (08:03)
[2016-10-14] MEDS: guaiFENesin 600 MG TABLET.ER PO SCH ×2 (08:03→21:30)
[2016-10-14] MEDS: PANTOPRAZOLE 40 MG TABLET PO SCH (08:04)
[2016-10-14] MEDS: HEPARIN SODIUM,PORCINE 5,000 UNIT/ML 1 ML VIAL SQ SCH ×2 (08:04→21:30)
[2016-10-14 08:34] LABS: Anisocytosis Slight; Basophils % (A) 0 %; CH 35.2; CHCM 30.6; Eosinophils # (A) 0.2 k/uL (0-0.7); Eosinophils % (A) 4 %; HDW 3.04; HGB 7.9 gm/dL (13.0-17.5); Hypochromasia Marked; Luc % (Auto) 3; Lymphocytes # (A) 0.8 k/uL (1.0-4.8); Lymphocytes % (A) 24 %; MCH 35.4 pg (25.0-35.0); MCHC 30.6 g/dL (31.0-37.0); MCV 115.6 fL (80.0-100.0); Macrocytosis Marked; Mean Platelet Volume 7.7; Monocytes # (A) 0.1 k/uL (0-1.0); Monocytes % (A) 4 %; Neutrophils # (A) 2.2 k/uL (1.3-7.7); Neutrophils % (A) 64 %; RBC 2.25 m/uL (4.30-5.90); RDW 17.5 % (11.5-15.5); WBC 3.4 k/uL (3.8-10.6); WBC (Perox) 3.58
[2016-10-14 09:08] LABS: Anion Gap 9 mmol/L; Blood Urea Nitrogen 9 mg/dL (9-20); Calcium 8.6 mg/dL (8.4-10.2); Carbon Dioxide 27 mmol/L (22-30); Chloride 103 mmol/L (98-107); Glucose 90 mg/dL (74-99); Non-African American GFR(MDRD) >60 (>60 ml/min/1.73 sqM); Potassium 4.2 mmol/L (3.5-5.1); Sodium 139 mmol/L (137-145)
[2016-10-14] MEDS: SYMBICORT 80-4.5 MCG INHALER INHALATION SCH ×2 (09:19→19:50)
[2016-10-14] MEDS: IPRATROPIUM-ALBUTEROL 3 ML NEB INHALATION SCH ×4 (09:19→19:50)
[2016-10-14] MEDS: TIOTROPIUM 18 MCG/PUFF INHALER INHALATION SCH (09:20)
--- NOTE | 2016-10-14 10:11 | PN ---
DATE OF SERVICE: 10/13/2016 This is a 50-year-old gentleman who was admitted with COPD acute exacerbation, with acute bilateral pneumonia, is improving significantly. Patient IV broad-spectrum IV antibiotics. No chest pain or palpitation. No fever. On exam, alert and oriented x3. Pulse is 103, blood pressure 95/54, respiration 21, temperature is 98.6. Pulse ox 98% on 2 L. HEENT: Conjunctivae normal. NECK: No jugular venous distension. CARDIOVASCULAR: S1, S2, muffled. RESPIRATORY: Breath sounds diminished at the bases. Bilateral scattered rhonchi, no crackles. ABDOMEN: Soft, nontender. LEGS: No edema. No swelling. NERVOUS SYSTEM: No focal deficits. LABS: WBC is 4.8, hemoglobin is 8, MCV 110. Otherwise, calcium is 8.3. HIV is nonreactive. Other labs are noted. ASSESSMENT: 1. Chronic obstructive pulmonary disease acute exacerbation with acute bilateral pneumonia, right more than the left, possibly gram-negative with acute hypoxic respiratory failure with possible sepsis, present on admission. 2. History of severe protein calorie malnutrition with a body mass index of 16.5, present on admission. 3. Increased d-dimer without any evidence of pulmonary embolism. 4. Increased total bilirubin, secondary to sepsis, possibly. 5. Continued ongoing nicotine dependence. 6. Macrocytosis. 7. History of prostate disorder. 8. History of chronic respiratory failure with chronic hypoxic respiratory failure on home O2 three liters nasal cannula. 9. Spontaneous pneumothorax on the right side. 10. History of chest tube drainage. 11. History of memory loss. 12. Anxiety, depression, not otherwise specified. 13. FULL CODE. RECOMMENDATION: In this 50-year-old gentleman who presented with multiple complex medical issues, will monitor the patient closely, continue with the bronchodilators and broad-spectrum IV antibiotics. Guarded prognosis because of multiple complex medical issues. Further recommendations to follow. See orders for further details.
[2016-10-14 10:53] LABS: Manual Review Performed
--- NOTE | 2016-10-14 13:33 | P.PN ---
Subjective Principal diagnosis: Shortness of breath secondary to COPD and acute right upper lobe pneumonia. A very pleasant 50-year-old male patient presented to the hospital because of worsening shortness of breath. The patient has advanced COPD and has been oxygen dependent and typically uses oxygen overnight. He also has been maintained on a combination of Spiriva and Advair. The patient has lived in [place] in the past and he also has lived briefly in [facility] and currently is in [place] for the past 1 year. He uses pro-air rescue inhaler on an as-needed basis. Denies having any previous of pneumonia. Approximately a week ago, he started having increased chest congestion, discomfort and pain over the right anterior chest area more so in the upper chest, and increased shortness of breath. Denied having any fever. Denied having any nausea vomiting or diarrhea. No reported change in mental status. 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 He came to the hospital for this problem and he was found to have an extensive right upper lobe pneumonia and the CAT scan of the chest showed extensive emphysematous changes bilaterally more so in the upper lobes. The patient tells me that he has been smoking still. He also has had previous history of bilateral pneumothoraces at the young age requiring breath or chest tube insertion and he has had chemical pleurodesis on the left. No aspiration. No travel history. No sick contacts. No fever. No chills. No hemoptysis. No pleurisy. The patient is seen again today 10/11/2016 in follow-up on the selective care unit. He is doing better today as compared to yesterday. He is still dyspneic on minimal exertion. Continues with a loose productive cough. He has been seen and evaluated by infectious disease as well. He remains on Zosyn and Levaquin. Continue with his current COPD exacerbation medications as well. The patient was seen again today 10/12/2016 in follow-up on the regular medical floor. He is currently resting quite comfortably in bed. He states he is breathing easier today as compared to yesterday. He's been up ambulating with assistance without significant dyspnea. He continues to maintain O2 saturations in the low 90s on 2 L/m cannula. He is afebrile. Hemoglobin stable at 8.0. No leukocytosis. He remains on Zosyn and Levaquin. On the patient is doing extremely well. No specific complaints. Still on Zosyn and Levaquin combination. No shortness of breath. Resting comfortably in bed. Still on oxygen at 2 L/m nasal cannula and the pulse ox is above 90% at all times. Ambulating. A repeat chest x-ray will be obtained for tomorrow. On 10/14/2016, patient is experiencing shortness of breath, intermittent cough, intermittent wheezing. Chest x-ray continues to show a significant abnormality in the right upper lobe. This was not present on x-rays done in the last year. Small right pleural effusion was also noted. CT of the chest showed extensive emphysematous changes, extensive bullous changes noted bilaterally especially in the upper lobes. Again the consolidation in the right upper lobe is or at least seems to be relatively new. Objective - Vital Signs Vital signs: Vital Signs Temp 97.6 F 10/14/16 07:00 Pulse 98 10/14/16 12:41 Resp 12 10/14/16 08:00 BP 93/61 10/14/16 07:00 Pulse Ox 95 10/14/16 09:21 Intake & Output 10/13/16 10/14/16 10/14/16 18:59 06:59 18:59 Intake Total 1040 Output Total 1400 Balance -360 Weight 63 kg Intake: Oral 1040 Output: Urine 1400 Other: Voiding Method Urinal # Voids 3 0 # Bowel Movements 1 0 - Exam Physical Exam: Revealed a 50-year-old white male in mild respiratory distress having intermittent and frequent episodes of cough and wheezing. HEENT:[Neck is supple.] [No neck masses.] [No thyromegaly.] [No JVD.] Chest: [Rhonchi and wheezes noted bilaterally more so on forced expiratory maneuver..] Cardiac Exam: [Normal S1 and S2, no S3 gallop, no murmur.] Abdomen: [Soft, nontender, no megaly, no rebound, no guarding, normal bowel sounds.] Extremities: [No clubbing, no edema, no cyanosis.] Neurological Exam: [No focal neurologic deficit.] - Labs CBC & Chem 7: 10/14/16 07:39 10/14/16 07:39 Labs: Abnormal Lab Results - Last 24 Hours (Table) 10/14/16 Range/Units 07:39 WBC 3.4 L (3.8-10.6) k/uL RBC 2.25 L (4.30-5.90) m/uL Hgb 7.9 L (13.0-17.5) gm/dL Hct 26.0 L (39.0-53.0) % MCV 115.6 H (80.0-100.0) fL MCH 35.4 H (25.0-35.0) pg MCHC 30.6 L (31.0-37.0) g/dL RDW 17.5 H (11.5-15.5) % Lymphocytes # 0.8 L (1.0-4.8) k/uL Microbiology - Last 24 Hours (Table) 10/09/16 11:53 Blood Culture - Preliminary Blood No Growth after 96 hours Assessment and Plan Plan: 1 acute COPD exacerbation with secondary shortness of breath, improving 2 acute right upper lobe pneumonia. The patient has extensive consolidation of the right upper lobe. This is consistent with right upper lobe pneumonia, likely gram-negative considering the patient's history of COPD. 3 advanced oxygen-dependent COPD with extensive emphysematous changes bilaterally more so in the upper lobes 4 history of bilateral pneumothoraces requiring chest tube insertion and pleurodesis 5 smoking 6 exertional dyspnea 7 weight loss Plan continue present antibiotics, not quite ready for discharge planning, chest x-ray continues to be concerning, patient may eventually need to be on home O2, oral antibiotics at home, we will address that issue in the next 24 hours. Time with Patient: Less than 30
[2016-10-14] MEDS: HYDROcodone/APAP 7.5-325MG 1 EACH TAB PO PRN ×2 (14:32→21:30)
[2016-10-14] MEDS: LEVOFLOXACIN 750 MG TAB PO SCH (14:53)
--- NOTE | 2016-10-14 17:43 | P.PN ---
Subjective Date of service 10/14/2016. Progress note being dictated for Dr. Cherry. Interval history: Is a 50-year-old gentleman admitted with increased shortness of breath, acute COPD exacerbation, acute bilateral pneumonia and multiple other medical issues. Maintained on nebulized bronchodilators, Zosyn, Levaquin. Pneumonia worsening. Desatted to 83% while wearing 2 L nasal cannula upon ambulation. Denies chest pain, palpitations. T-max 99.4. Urine, sputum, blood cultures negative. Objective - Vital Signs Vital signs: Vital Signs Temp 97.6 F 10/14/16 07:00 Pulse 92 10/14/16 09:42 Resp 12 10/14/16 08:00 BP 93/61 10/14/16 07:00 Pulse Ox 95 10/14/16 09:21 Intake & Output 10/13/16 10/14/16 10/14/16 18:59 06:59 18:59 Intake Total 1040 Output Total 1400 Balance -360 Weight 63 kg Intake: Oral 1040 Output: Urine 1400 Other: Voiding Method Urinal # Voids 3 0 # Bowel Movements 1 0 - Exam PHYSICAL EXAM: VITAL SIGNS: As above GENERAL: [Sitting up in bed, converses easily, no acute distress] HEENT: [Pupils equal conjunctiva normal.] NECK: [Supple, no JVD] RESPIRATORY EFFORT:[] Increased LUNGS: [Bases diminished with scattered rhonchi and expiratory wheezing throughout, no crackles CARDIOVASCULAR[ Egler S1 and S2, no murmurs rubs or gallops, no edema] GI: [Abdomen soft, nontender, positive bowel sounds.] PSYCH: [Alert and oriented -3, mood and affect normal.] NEURO: No focal deficits, moves all 4 extremities, strength and sensation grossly intact - Labs CBC & Chem 7: 10/14/16 07:39 10/14/16 07:39 Labs: Abnormal Lab Results - Last 24 Hours (Table) 10/14/16 Range/Units 07:39 WBC 3.4 L (3.8-10.6) k/uL RBC 2.25 L (4.30-5.90) m/uL Hgb 7.9 L (13.0-17.5) gm/dL Hct 26.0 L (39.0-53.0) % MCV 115.6 H (80.0-100.0) fL MCH 35.4 H (25.0-35.0) pg MCHC 30.6 L (31.0-37.0) g/dL RDW 17.5 H (11.5-15.5) % Lymphocytes # 0.8 L (1.0-4.8) k/uL Microbiology - Last 24 Hours (Table) 10/09/16 11:53 Blood Culture - Preliminary Blood No Growth after 96 hours Assessment and Plan Plan: 1. Acute COPD exacerbation with acute bilateral pneumonia right more than left , possibly gram-negative with acute hypoxic respiratory failure, possible sepsis , present on admission. 2. [ Severe protein calorie malnutrition with BMI of 16.5, present on admission] . 3. [ Increased d-dimer without evidence of PE]. 4. [ Increased bilirubin secondary to assess stability]. 5. [ Continued ongoing nicotine dependence]. 6. [ Leukocytosis]. 7. [ Prostate disorder, history of]. 8. Extensive emphysematous changes bilaterally , advanced COPD with chronic hypoxic respiratory failure, on 3 L nasal cannula at home 9. Spontaneous right pneumothorax 10. History of chest tube drainage 11. Anxiety depression, not otherwise specified 12. Moderate protein calorie malnutrition, BMI 19.9 Plan: Continue on current medication regime, nebulized bronchodilators, broad- spectrum IV antibiotics, monitoring and symptomatic treatment. Pain management services consulted for ongoing hip pain, states Dr. Saeed told him he is not a surgical candidate, previously and requesting another options. PT/OT consulted. Discharge planning in progress pending pulmonary clearance The impression and plan of care has been dictated as directed. : I performed a H&P examination of this patient and discussed the same with the dictator. I agree with the dictator's note. Any additional findings/opinions/ etc. will be noted..
--- NOTE | 2016-10-14 20:21 | P.PN ---
Subjective Principal diagnosis: Shortness of breath and pneumonia 50-year-old male who has evidence of oxygen dependent COPD with history of spontaneous pneumothorax from the right lung follows with Dr. Yang Christianson. The patient is originally from [place]. He had been here visiting family members a couple years ago and noticed while he was here he felt considerably better. He constantly moved to this area to be close to his brother. Shortly after arrival his respiratory status did improve and was feeling better for a bit. Relates he's had some exacerbations of his COPD since here at this is the first time in the last. He is actually had hospitalization. He relates that over the weekend he did some grilling and spent some time outside. Shortly thereafter he had increasing shortness of breath cough fever and malaise. He felt considerably worse and was seen in the outpatient office. He comes of his significant shortness of breath and tachycardia he was admitted to hospital for further intervention. The patient is feeling slightly better at this point in time. He is less short of breath is long as he doesn't have any activity. He relates even minimal exertion makes him more short of breath and his heart rate increases. He is denying chest pain at this time. He was having a large amount of sputum production that has now tapered off since coming to hospital. He is denying hemoptysis. In general he is noting fatigue but has a good appetite. His lost weight over time due to his pulmonary disease. Does feel somewhat better today Less short of breath but still has a large amount of sputum production. No hemoptysis. He has significant desaturation when he ambulates. Objective - Vital Signs Vital signs: Vital Signs Temp 99.4 F 10/14/16 14:49 Pulse 96 10/14/16 20:00 Resp 18 10/14/16 14:54 BP 90/55 10/14/16 14:49 Pulse Ox 96 10/14/16 19:50 Intake & Output 10/14/16 10/14/16 10/15/16 06:59 18:59 06:59 Intake Total 1040 Output Total 1400 Balance -360 Weight 63 kg Intake: Oral 1040 Output: Urine 1400 Other: Voiding Method Urinal # Voids 0 3 # Bowel Movements 0 - Exam 50-year-old male appears older than his stated age. Is comfortable since he is resting quietly. Is a very thin build not cachectic HEENT: Anicteric conjunctiva are pink and moist nasal mucosa grossly intact without significant lesions, there is no thrush. Fully edentulous no thrush Neck: The neck is supple without significant lymphadenopathy or thyromegaly. Lungs: There is symmetrical air entry. Expiratory wheezes are through the lung levine. Crackles at the bases. Few bronchial sounds are heard in the right lateral upper posterior aspect of the chest no dullness or egophony is noted Heart: Regular rate and rhythm with an audible S1-S2, no S3 no S4. There is no significant murmur click or rub, PMI was nondisplaced. Abdomen: Positive bowel sounds soft and nontender without palpable masses or organomegaly. There was no guarding or rebound. Extremities: The upper extremities have excellent pulses they are symmetric, no significant petechiae or telangiectasia. No splinter hemorrhages were noted. The lower extremities are free from significant edema. The peripheral pulses were 2+ and symmetric. Neuro: Awake alert oriented to person place and time. There are no acute new gross focal sensory motor deficits. - Labs CBC & Chem 7: 10/14/16 07:39 10/14/16 07:39 Labs: Abnormal Lab Results - Last 24 Hours (Table) 10/14/16 Range/Units 07:39 WBC 3.4 L (3.8-10.6) k/uL RBC 2.25 L (4.30-5.90) m/uL Hgb 7.9 L (13.0-17.5) gm/dL Hct 26.0 L (39.0-53.0) % MCV 115.6 H (80.0-100.0) fL MCH 35.4 H (25.0-35.0) pg MCHC 30.6 L (31.0-37.0) g/dL RDW 17.5 H (11.5-15.5) % Lymphocytes # 0.8 L (1.0-4.8) k/uL Microbiology - Last 24 Hours (Table) 10/09/16 11:53 Blood Culture - Preliminary Blood No Growth after 120 hours Laboratory Results WBC 3.4 k/uL (3.8-10.6) L 10/14/16 07:39 RBC 2.25 m/uL (4.30-5.90) L 10/14/16 07:39 Hgb 7.9 gm/dL (13.0-17.5) L 10/14/16 07:39 Hct 26.0 % (39.0-53.0) L 10/14/16 07:39 MCV 115.6 fL (80.0-100.0) H 10/14/16 07:39 MCH 35.4 pg (25.0-35.0) H 10/14/16 07:39 MCHC 30.6 g/dL (31.0-37.0) L 10/14/16 07:39 RDW 17.5 % (11.5-15.5) H 10/14/16 07:39 Plt Count 212 k/uL (150-450) 10/14/16 07:39 Neutrophils % 64 % 10/14/16 07:39 Lymphocytes % 24 % 10/14/16 07:39 Monocytes % 4 % 10/14/16 07:39 Eosinophils % 4 % 10/14/16 07:39 Basophils % 0 % 10/14/16 07:39 Neutrophils # 2.2 k/uL (1.3-7.7) 10/14/16 07:39 Lymphocytes # 0.8 k/uL (1.0-4.8) L 10/14/16 07:39 Monocytes # 0.1 k/uL (0-1.0) 10/14/16 07:39 Eosinophils # 0.2 k/uL (0-0.7) 10/14/16 07:39 Basophils # 0.0 k/uL (0-0.2) 10/14/16 07:39 Manual Slide Review Performed 10/14/16 07:39 Hypochromasia Marked 10/14/16 07:39 Poikilocytosis Slight 10/11/16 06:03 Poikilocytosis (manual Present 10/14/16 07:39 Anisocytosis Slight 10/14/16 07:39 Macrocytosis Marked 10/14/16 07:39 ESR >140 mm/hr (0-15) H 10/10/16 05:35 Retic Count 3.7 % (0.5-2.0) H 10/11/16 06:03 PT 10.7 sec (9.0-12.0) 10/09/16 11:53 INR 1.1 (<1.1) 10/09/16 11:53 APTT 22.5 sec (22.0-30.0) 10/09/16 11:53 D-Dimer 2.66 mg/L FEU (<0.60) H 10/09/16 11:53 Sodium 139 mmol/L (137-145) 10/14/16 07:39 Potassium 4.2 mmol/L (3.5-5.1) 10/14/16 07:39 Chloride 103 mmol/L (98-107) 10/14/16 07:39 Carbon Dioxide 27 mmol/L (22-30) 10/14/16 07:39 Anion Gap 9 mmol/L 10/14/16 07:39 BUN 9 mg/dL (9-20) 10/14/16 07:39 Creatinine 0.69 mg/dL (0.66-1.25) 10/14/16 07:39 Est GFR (MDRD) Af Amer >60 (>60 ml/min/1.73 sqM) 10/14/16 07:39 Est GFR (MDRD) Non-Af >60 (>60 ml/min/1.73 sqM) 10/14/16 07:39 Glucose 90 mg/dL (74-99) 10/14/16 07:39 Calcium 8.6 mg/dL (8.4-10.2) 10/14/16 07:39 Magnesium 2.0 mg/dL (1.6-2.3) 10/09/16 11:53 Iron 111 ug/dL (49-181) 10/11/16 06:03 TIBC 182 ug/dL (261-462) L 10/11/16 06:03 % Saturation 61.0 % (20-50) H 10/11/16 06:03 Ferritin 424 ng/mL (18-464) 10/11/16 06:03 Total Bilirubin 1.8 mg/dL (0.2-1.3) H 10/09/16 11:53 AST 27 U/L (17-59) 10/09/16 11:53 ALT 17 U/L (21-72) L 10/09/16 11:53 Alkaline Phosphatase 87 U/L (38-126) 10/09/16 11:53 Total Creatine Kinase 50 U/L (55-170) L 10/09/16 11:53 CK-MB (CK-2) 0.4 ng/mL (0.0-2.4) 10/09/16 11:53 CK-MB (CK-2) Rel Index 0.8 10/09/16 11:53 Troponin I 0.035 ng/mL (0.000-0.034) H* 10/09/16 11:53 C-Reactive Protein 125.3 mg/L (<10.0) H 10/09/16 11:53 NT-Pro-B Natriuret Pep 154 pg/mL 10/09/16 11:53 Total Protein 8.5 g/dL (6.3-8.2) H 10/09/16 11:53 Albumin 4.3 g/dL (3.5-5.0) 10/09/16 11:53 Vitamin B12 307 pg/mL (239-931) 10/11/16 06:03 Folate 5.81 ng/mL (>2.75) 10/11/16 06:03 HIV-1 Ab Supplemental TNP 10/10/16 05:35 HIV-2 Ab Supplemental TNP 10/10/16 05:35 HIV 1&2 Ag/Ab, 4th Gen NONREAC (NON REAC) 10/10/16 05:35 Microbiology 10/09/16 11:53 Blood Blood Culture - Preliminary No Growth after 120 hours 10/10/16 11:32 Sputum Gram Stain - Final 10/10/16 11:32 Sputum Sputum Culture - Final 10/10/16 18:47 Urine,Voided Urine Culture - Final Assessment and Plan (1) Right upper lobe pneumonia Narrative/Plan: 50-year-old male who has oxygen-dependent advanced COPD presents to hospital with the rapid onset of shortness of breath and large amounts of sputum production. He was at home trying to manage himself and he became much more short of breath and presented to Hospital. There is evidence of the right upper lobe posterior segment pneumonia without evidence of pulmonary embolus. The patient is being treated with antibiotic therapy with Zosyn and Levaquin until there is further data. In general he feels slightly better than admission but is still weak. The trip to the bathroom was exhausting for him and he was very short of breath. He is with well controlled pain. It does not feel like he didn't pass with his pneumothorax. COPD is being treated and smoking cessation was discussed at length and its link to his current disease state. Patch is in place and he relates to some willingness to consider smoking cessation Patient is evidence of anemia studies will be obtained there is evidence of significantly elevated sed rate and CRP. Possible underlying pneumonia but also query the possibility of a different inflammatory process, with his weight loss but concerned to an underlying undetected malignancy at this time. Iron studies reveal evidence of a normal iron level reticulocyte count is high appears to have bone marrow suppression from chronic infection and illness for his current anemia and leukopenia. Cultures for further help to direct antibiotic therapy. Negative so far likely utilize levofloxacin to complete his course of therapy at discharge. High-protein supplements are suggested. Patient needs to be on oxygen therapy 24 7 we'll have pulmonary medicine further evaluate this. He also needs to have ability to have improved oxygenation with activity likely needs higher flow oxygen with activity. Status: Acute (2) Acute exacerbation of chronic obstructive airways disease Status: Acute (3) Weight loss Status: Acute (4) Anemia Status: Acute
--- NOTE | 2016-10-14 20:57 | PN ---
DATE OF SERVICE: 10/14/2016 This 50-year-old gentleman who was admitted with COPD acute exacerbation, also had bilateral pneumonia. Seen and evaluated the patient along with nurse practitioner. Please refer to the nurse practitioner notes and impression documented as a scribe for further information. Dr. Latham is recommending further antibiotic.
[2016-10-14] MEDS: TEMAZEPAM 15 MG CAP PO PRN (21:30)
[2016-10-15] MEDS: IPRATROPIUM-ALBUTEROL 3 ML NEB INHALATION PRN ×2 (00:29→04:21)
[2016-10-15 07:19] VITALS: RESP 24
[2016-10-15] MEDS: HEPARIN SODIUM,PORCINE 5,000 UNIT/ML 1 ML VIAL SQ SCH (07:35)
[2016-10-15] MEDS: PANTOPRAZOLE 40 MG TABLET PO SCH (07:35)
[2016-10-15] MEDS: NICOTINE 21MG/24HR PATCH TRANSDERM SCH (07:35)
[2016-10-15] MEDS: guaiFENesin 600 MG TABLET.ER PO SCH (07:35)
[2016-10-15] MEDS: PIPERACILLIN-TAZOBACTAM 3.375 GM in DEXTROSE/WATER 1 50ML.BAG IVPB SCH ×2 (07:36→15:32)
[2016-10-15] MEDS: HYDROcodone/APAP 7.5-325MG 1 EACH TAB PO PRN ×2 (07:42→14:53)
[2016-10-15] MEDS: IPRATROPIUM-ALBUTEROL 3 ML NEB INHALATION SCH ×3 (08:49→15:50)
[2016-10-15] MEDS: SYMBICORT 80-4.5 MCG INHALER INHALATION SCH (08:49)
[2016-10-15] MEDS: TIOTROPIUM 18 MCG/PUFF INHALER INHALATION SCH (08:49)
--- NOTE | 2016-10-15 10:18 | P.CON ---
Consult Note - . Consult date: 10/15/16 Assessment/Plan:: Patient seen and examined, medical/surgical/social/family history and allergies reviewed along with current admission. Mr. Burrows is a 50-year-old male who presented to the hospital with shortness of breath. He has a long history of chronic obstructive pulmonary disease and was admitted for exacerbation with questionable pneumonia. He was placed on antibiotics for potential infection and clinically has improved over the course of the last several days. Patient does have a history of right- sided hip pain with radiation into the groin and to the lateral side of the proximal thigh.. Patient notes that he saw Dr. Saeed in the past and is not a candidate for hip surgery secondary to his extremely poor lung function. Physical examination demonstrates a male who appears his stated age. He is awake alert and oriented 3. Neck is supple trachea is midline. Examination of the right hip demonstrates pain with abduction, internal rotation and external rotation. Patient's worst pain is with palpation over the right-sided greater trochanter. X-ray of the hips from June 2016 demonstrated bilateral femoral acetabular impingement. We will schedule Mr. Burrows to undergo a right-sided greater trochanteric bursa injection as an outpatient on this coming . He does not use any blood thinning medications and understands all risks benefits and alternatives to this procedure, with risks including but not limited to bleeding, infection, nerve damage, incomplete pain relief, and ALLERGIC reactions to medications. With chart review, patient interview, patient examination, and discussion with pain clinic staff, I spent approximately 40 minutes in the care of this patient.
[2016-10-15] MEDS: SODIUM CHLORIDE 0.9% 1,000 ML IV SCH (10:51)
[2016-10-15 11:04] VITALS: BMI 17.5
--- NOTE | 2016-10-15 14:24 | P.PN ---
Subjective A very pleasant 50-year-old male patient presented to the hospital because of worsening shortness of breath. The patient has advanced COPD and has been oxygen dependent and typically uses oxygen overnight. He also has been maintained on a combination of Spiriva and Advair. The patient has lived in [place] in the past and he also has lived briefly in [facility] and currently is in [place] for the past 1 year. He uses pro-air rescue inhaler on an as-needed basis. Denies having any previous of pneumonia. Approximately a week ago, he started having increased chest congestion, discomfort and pain over the right anterior chest area more so in the upper chest, and increased shortness of breath. Denied having any fever. Denied having any nausea vomiting or diarrhea. No reported change in mental status. 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 He came to the hospital for this problem and he was found to have an extensive right upper lobe pneumonia and the CAT scan of the chest showed extensive emphysematous changes bilaterally more so in the upper lobes. The patient tells me that he has been smoking still. He also has had previous history of bilateral pneumothoraces at the young age requiring breath or chest tube insertion and he has had chemical pleurodesis on the left. No aspiration. No travel history. No sick contacts. No fever. No chills. No hemoptysis. No pleurisy. The patient is seen again today 10/11/2016 in follow-up on the selective care unit. He is doing better today as compared to yesterday. He is still dyspneic on minimal exertion. Continues with a loose productive cough. He has been seen and evaluated by infectious disease as well. He remains on Zosyn and Levaquin. Continue with his current COPD exacerbation medications as well. The patient was seen again today 10/12/2016 in follow-up on the regular medical floor. He is currently resting quite comfortably in bed. He states he is breathing easier today as compared to yesterday. He's been up ambulating with assistance without significant dyspnea. He continues to maintain O2 saturations in the low 90s on 2 L/m cannula. He is afebrile. Hemoglobin stable at 8.0. No leukocytosis. He remains on Zosyn and Levaquin. On the patient is doing extremely well. No specific complaints. Still on Zosyn and Levaquin combination. No shortness of breath. Resting comfortably in bed. Still on oxygen at 2 L/m nasal cannula and the pulse ox is above 90% at all times. Ambulating. A repeat chest x-ray will be obtained for tomorrow. On 10/14/2016, patient is experiencing shortness of breath, intermittent cough, intermittent wheezing. Chest x-ray continues to show a significant abnormality in the right upper lobe. This was not present on x-rays done in the last year. Small right pleural effusion was also noted. CT of the chest showed extensive emphysematous changes, extensive bullous changes noted bilaterally especially in the upper lobes. Again the consolidation in the right upper lobe is or at least seems to be relatively new. Patient is seen again today 10/15/2016 in follow-up on the regular medical floor. He is awake and alert in no acute distress. He is breathing better today as compared to yesterday. Nearly back to his baseline. He continues with a loose nonproductive cough. Earlier sputum sample revealed no significant growth. No leukocytosis. He is afebrile. He is maintaining O2 saturations in the mid 90s on room air at rest. There is some desaturation in the 80s while walking. The patient does have a home concentrator as he mainly more his oxygen at night. Objective - Vital Signs Vital signs: Vital Signs Temp 97.9 F 10/15/16 07:00 Pulse 145 H 10/15/16 12:00 Resp 24 10/15/16 07:00 BP 83/55 10/15/16 07:00 Pulse Ox 94 L 10/15/16 12:00 Intake & Output 10/14/16 10/15/16 10/15/16 18:59 06:59 18:59 Intake Total 1090 Balance 1090 Weight 55.5 kg 55.5 kg Intake: Oral 1090 Other: Voiding Method Urinal Toilet Toilet Urinal Urinal # Voids 3 2 3 - Exam Thin, comfortable likely distress not using his incentive muscles of breathing.Head exam was generally normal. There was no scleral icterus or corneal arcus. Mucous membranes were moist.Neck was supple and without jugular venous distension, thyromegaly, or carotid bruits. Carotids were easily palpable bilaterally. There was no adenopathy. Lung sounds are diminished bilaterally along with some few scattered expiratory wheezes heard throughout lung levine.Cardiac exam revealed the PMI to be normally situated and sized. The rhythm was regular and no extrasystoles were noted during several minutes of auscultation. The first and second heart sounds were normal and physiologic splitting of the second heart sound was noted. There were no murmurs, rubs, clicks, or gallops.Abdominal exam revealed normal bowel sounds. The abdomen was soft, non-tender, and without masses, organomegaly, or appreciable enlargement of the abdominal aorta. Examination of the extremities revealed easily palpable radial, femoral and pedal pulses. There was no cyanosis, clubbing or edema. - Labs CBC & Chem 7: 10/14/16 07:39 10/14/16 07:39 Labs: Microbiology - Last 24 Hours (Table) 10/09/16 11:53 Blood Culture - Preliminary Blood No Growth after 120 hours Assessment and Plan Plan: Assessment 1 acute COPD exacerbation with secondary shortness of breath 2 acute right upper lobe pneumonia. The patient has extensive consolidation of the right upper lobe. 3 advanced oxygen-dependent COPD with extensive emphysematous changes bilaterally more so in the upper lobes 4 history of bilateral pneumothoraces requiring chest tube insertion and pleurodesis 5 smoking 6 exertional dyspnea 7 weight loss Plan The patient was seen and evaluated by Dr. Latham. His chest x-ray and labs were reviewed. Not much improvement in his x-ray today. He is doing better today as compared to yesterday. We will continue with his current antibiotics. We'll continue his COPD medications including bronchodilators, Symbicort and Spiriva. He is again educated regarding the importance of complete smoking cessation. Habitrol patch remains in place. We'll increase his activity as tolerated. We'll continue to follow. We will assure he has portable home oxygen and nebulizer.
[2016-10-15] MEDS: LEVOFLOXACIN 750 MG TAB PO SCH (14:53)
[2016-10-15 15:05] VITALS: BP 103/56; TEMP 97.2
[2016-10-15] MEDS: HYDROmorphone 1 MG/ML 1 ML SYRINGE IVP PRN (15:46)
[2016-10-15 15:59] VITALS: PULSE 96
--- NOTE | 2016-10-15 17:37 | P.DS ---
Providers Date of admission: 10/09/16 15:07 Expected date of discharge: 10/15/16 Attending physician: Blake Allison Consults: 10/09/16 14:44 Consult Physician Routine Consulting Provider: Efraín Salinas Consult Reason/Comments: Pneumonia COPD Do you want consulting provider notified?: Yes 10/10/16 13:31 Consult Physician Routine Consulting Provider: Wicho Meza Consult Reason/Comments: pneumonia?? Do you want consulting provider notified?: Yes 10/14/16 17:27 Consult Physician Routine Consulting Provider: Mindy Cerda Consult Reason/Comments: Right hip pain, unable to have surgery secondary to pulmonary function Do you want consulting provider notified?: Yes [facility]: Final Diagnoses: 1. Acute COPD exacerbation with acute bilateral pneumonia right more than left , possibly gram-negative with acute hypoxic respiratory failure, possible sepsis , present on admission. 2. [ Severe protein calorie malnutrition with BMI of 16.5, present on admission] . 3. [ Increased d-dimer without evidence of PE]. 4. [ Increased bilirubin secondary to assess stability]. 5. [ Continued ongoing nicotine dependence]. 6. [ Leukocytosis]. 7. [ Prostate disorder, history of]. 8. Extensive emphysematous changes bilaterally , advanced COPD with chronic hypoxic respiratory failure, on 3 L nasal cannula at home. 9. Spontaneous right pneumothorax 10. History of chest tube drainage 11. Anxiety depression, not otherwise specified 12. Moderate protein calorie malnutrition, BMI 19.9 Hospital course: This Is a 50-year-old gentleman admitted with increased shortness of breath, acute COPD exacerbation, acute bilateral pneumonia and multiple other medical issues. Maintained on nebulized bronchodilators, Zosyn, Levaquin. Desatted to 80s while wearing 2 L nasal cannula upon ambulation. Urine, sputum, blood cultures negative. Patient complains of significant right hip pain,statesDr. Kirsten informed him that he is not a surgical candidate given his advanced COPD. Evaluated by Pain management services for ongoing hip pain. Patient is scheduled for , right-sided greater trochanter bursa injection. Patient has been cleared by multiple consults for discharge home.patient is being discharged home in a stable condition with guarded prognosis. The impression and plan of care has been dictated as directed as a scribe. : I performed a H&P examination of this patient and discussed the same with the dictator. I agree with the dictator's note. Any additional findings/opinions/ etc. will be noted. Patient Condition at Discharge: Stable Plan - Discharge Summary New Discharge Prescriptions: New Levofloxacin [Levaquin] 750 mg PO DAILY #5 tab Ipratropium-Albuterol Nebulize [Duoneb 0.5 mg-3 mg/3 ml Soln] 3 ml INHALATION RT-QID #120 neb Nicotine 21Mg/24Hr Patch [Habitrol] 1 patch TRANSDERM DAILY #30 patch Continue hydrOXYzine PAMOATE [Vistaril] 25 mg PO TID Tiotropium 18 Mcg/Puff [Spiriva] 1 cap INHALATION RT-DAILY HYDROcodone/APAP 7.5-325MG [[place] 7.5-325] 1 tab PO TID PRN PRN Reason: Pain Fluticasone/Salmeterol [Advair 250-50 Diskus] 1 inhalation PO RT-BID Discharge Medication List Fluticasone/Salmeterol [Advair 250-50 Diskus] 1 inhalation PO RT-BID 10/09/16 [ History] HYDROcodone/APAP 7.5-325MG [[place] 7.5-325] 1 tab PO TID PRN 10/09/16 [History] Tiotropium 18 Mcg/Puff [Spiriva] 1 cap INHALATION RT-DAILY 10/09/16 [History] hydrOXYzine PAMOATE [Vistaril] 25 mg PO TID 10/09/16 [History] Levofloxacin [Levaquin] 750 mg PO DAILY #5 tab 10/14/16 [Rx] Ipratropium-Albuterol Nebulize [Duoneb 0.5 mg-3 mg/3 ml Soln] 3 ml INHALATION RT -QID #120 neb 10/15/16 [Rx] Nicotine 21Mg/24Hr Patch [Habitrol] 1 patch TRANSDERM DAILY #30 patch 10/15/16 [ Rx] Follow up Appointment(s)/Referral(s): Peaec Latham MD [STAFF PHYSICIAN] - 10/29/16 11:00 am [facility], [NON-STAFF] - Anesthesia,Services [STAFF PHYSICIAN] - 10/17/16 9:00 am (At [facility] for steroid injection, Dr Cameron) Yang Corrigan, [Primary Care Provider] - 10/16/16 1:20 pm Patient Instructions/Handouts: COPD (Chronic Obstructive Pulmonary Disease) (DC ) Activity/Diet/Wound Care/Special Instructions: Diet: Cardiac Activity: Limited until follow up NO smoking, cessation information provided. B12 level pending, results to PCP Portable O2 and nebulizer ordered from [email or web address] ([phone]). Discharge Disposition: HOME WITH HOME HEALTH SERVICES
== END 2016-10-15 18:08 | disposition home health service (06) | DRG 871 ==
LOC: EC 11:38 → 6SEL 15:07 → 4MS4W 10-11 20:15
PROVIDERS: ADMIT Hospitalist; ATTEND Hospitalist
DX: A41.9 Sepsis, unspecified organism (principal); J15.6 Pneumonia due to other Gram-negative bacteria; J96.21 Acute and chronic respiratory failure with hypoxia; E44.0 Moderate protein-calorie malnutrition; J44.0 Chronic obstructive pulmonary disease with (acute) lower respiratory infection; J44.1 Chronic obstructive pulmonary disease with (acute) exacerbation; Z68.1 Body mass index [BMI] 19.9 or less, adult; M19.91 Primary osteoarthritis, unspecified site; Z99.81 Dependence on supplemental oxygen; F41.8 Other specified anxiety disorders; F17.200 Nicotine dependence, unspecified, uncomplicated; N40.0 Benign prostatic hyperplasia without lower urinary tract symptoms; D53.9 Nutritional anemia, unspecified; G89.29 Other chronic pain; M25.551 Pain in right hip; I71.4 Abdominal aortic aneurysm, without rupture; Z79.51 Long term (current) use of inhaled steroids; Z79.899 Other long term (current) drug therapy
CPT/HCPCS: 36415; 71010; 71020; 71275; 80048; 80053; 82550; 82553; 82607; 82728; 82746; 83540; 83550; 83735; 83880; 84484; 85025; 85045; 85379; 85610; 85652; 85730; 86140; 87040; 87070; 87086; 87205; 87389; 93005; 94640; 94760; 96361; 96365; 96375; 99291

== ENCOUNTER → 2016-11-07 | Outpatient (CLI) | payer MEDICARE ==
--- NOTE | 2016-11-08 08:06 | XR ---
EXAMINATION TYPE: XR chest 2V DATE OF EXAM: 11/07/2016 COMPARISON: 10/29/2016 and 02/13/2016 HISTORY: 50-year-old male with cough and dyspnea TECHNIQUE: Frontal and lateral views FINDINGS: Heart is normal size. Aorta within normal limits. Redemonstrated are changes of COPD with bullous debbie nges in the right greater than left apices with surgical material at the right apex. There is residua l patchy infiltrate in the right upper lobe. Similar patchy peripheral right basilar opacity likely p leural parenchymal scarring. Calcified granulomas in the right suprahilar region. IMPRESSION: As compared to 10/29/2016, there is redemonstrated advanced COPD with bullous changes in the right gre ater than left apices, surgical material at the right apex, and slight improvement in the residual ri ght upper lobe infiltrates. The density here remains increased as compared to the patient's older 03/2016 study.
== END | disposition home or self-care (01) ==
LOC: RADXRYALE 15:22
PROVIDERS: ATTEND Physician Assistant Medical
DX: J44.9 Chronic obstructive pulmonary disease, unspecified (principal)
CPT/HCPCS: 71020

== ENCOUNTER → 2016-12-26 | Outpatient (CLI) | payer MEDICARE ==
--- NOTE | 2016-12-26 11:46 | US ---
EXAMINATION TYPE: US kidneys/renal and bladder DATE OF EXAM: 12/26/2016 COMPARISON: NONE CLINICAL HISTORY: R31.21 Microscopic hematuria. EXAM MEASUREMENTS: Right Kidney: 12.3 x 4.3 x 4.4 cm Left Kidney: 12.3 x 5.7 x 4.5 cm Right Kidney: no evidence of hydronephrosis or mass Left Kidney: no evidence of hydronephrosis or mass Bladder: not fully distended, wall appears thickened at 0.5cm Bilateral Jets seen: no There is no evidence for hydronephrosis at this point in time. No nephrolithiasis is seen. No bj s are identified. The urinary bladder is anechoic. Bilateral ureteral jets are seen. IMPRESSION: No distinct abnormality appreciated.
== END | disposition home or self-care (01) ==
LOC: RADUSWWP 08:08
PROVIDERS: ATTEND Urology
DX: R31.21 Asymptomatic microscopic hematuria (principal)
CPT/HCPCS: 76770

== ENCOUNTER → 2016-12-26 | Outpatient (CLI) | payer MEDICARE ==
--- NOTE | 2016-12-26 09:19 | US ---
EXAMINATION TYPE: US duplex aorta DATE OF EXAM: 12/26/2016 COMPARISON: NONE CLINICAL HISTORY: I71.4 AAA. EXAM MEASUREMENTS: Abdominal Aorta: Proximal: 2.0 x 2.0cm Mid: 2.4 x 2.3cm Distal: 3.3 x 3.6cm Bifurcation: RT: 0.9 x 1.2cm LT: 1.0 x 1.1cm Calcifications noted throughout aorta. Distal AAA IMPRESSION: 1. Mild aneurysmal dilatation distal abdominal aorta with atheromatous changes seen.
== END | disposition home or self-care (01) ==
LOC: RADUSWWP 08:12
PROVIDERS: ATTEND Family Medicine
DX: I71.4 Abdominal aortic aneurysm, without rupture (principal)
CPT/HCPCS: 93979

== ENCOUNTER 2017-01-05 18:45 | Inpatient (IN) | payer MEDICARE ==
--- NOTE | 2017-01-05 19:01 | ED ---
General Adult HPI - General Chief complaint: Shortness of Breath Stated complaint: copd flair Time Seen by Provider: 01/05/17 18:56 Source: patient, RN notes reviewed, old records reviewed Mode of arrival: wheelchair Limitations: no limitations - History of Present Illness Initial comments: This is a 51-year-old male the ER for evaluation. Patient has a for evaluation regarding shortness breath, significant shortness of breath. Patient has history of COPD. Denies fever, does have increased congestion, does have chest pain especially when coughing. No travel history no sick contacts - Related Data Home Medications Medication Instructions Recorded Confirmed Fluticasone/Salmeterol [Advair 1 inhalation PO RT-BID 10/09/16 10/16/16 250-50 Diskus] HYDROcodone/APAP 7.5-325MG [[place] 1 tab PO TID PRN 10/09/16 10/16/16 7.5-325] Tiotropium 18 Mcg/Puff [Spiriva] 1 cap INHALATION RT-DAILY 10/09/16 10/16/16 hydrOXYzine PAMOATE [Vistaril] 25 mg PO TID 10/09/16 10/16/16 Previous Rx's Medication Instructions Recorded Levofloxacin [Levaquin] 750 mg PO DAILY #5 tab 10/14/16 Ipratropium-Albuterol Nebulize 3 ml INHALATION RT-QID #120 neb 10/15/16 [Duoneb 0.5 mg-3 mg/3 ml Soln] Nicotine 21Mg/24Hr Patch [Habitrol] 1 patch TRANSDERM DAILY #30 patch 10/15/16 Allergies Allergy/AdvReac Type Severity Reaction Status Date / Time No Known Allergies Allergy Verified 01/05/17 18:53 Review of Systems ROS Statement: Those systems with pertinent positive or pertinent negative responses have been documented in the HPI. ROS Other: All systems not noted in ROS Statement are negative. Past Medical History Past Medical History: COPD, Prostate Disorder Additional Past Medical History / Comment(s): abdominal aortic aneurysm, difficulties with memory, chronic hypoxic respiratory failure, advanced COPD with upper lobe predominance, history of bilateral pneumothoraces at the young age requiring breath or chest tube insertion and pleurodesis. The patient also has BPH and chronic degenerative arthritis and hip pain on the right. Hospitalized for the last week for COPD/ pneumonia discharged 10-17-16. Wears 02 @ 2L. History of Any Multi-Drug Resistant Organisms: None Reported Additional Past Surgical History / Comment(s): Bilat. chests x 3. Past Anesthesia/Blood Transfusion Reactions: No Reported Reaction Additional Past Anesthesia/Blood Transfusion Reaction / Comment(s): pt stated he moved here from [place] a year ago. lives alone in apt-no steps. no outside services received. has home 02 /concnetrator. no pets. no past service. 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 Past Psychological History: Anxiety, Depression Smoking Status: Current some day smoker Past Alcohol Use History: None Reported Past Drug Use History: None Reported - Past Family History Father History Unknown: Yes Mother Family Medical History: Cancer, Coronary Artery Disease (CAD) Additional Family Medical History / Comment(s): lung cancer, lymphoma. General Exam Limitations: no limitations General appearance: alert, in no apparent distress, anxious Head exam: Present: atraumatic, normocephalic, normal inspection Eye exam: Present: normal appearance, PERRL, EOMI. Absent: scleral icterus, conjunctival injection, periorbital swelling ENT exam: Present: normal exam, mucous membranes moist Neck exam: Present: normal inspection. Absent: tenderness, meningismus, lymphadenopathy Respiratory exam: Present: normal lung sounds bilaterally, wheezes, accessory muscle use, decreased breath sounds, prolonged expiratory. Absent: respiratory distress, rales, rhonchi, stridor Cardiovascular Exam: Present: regular rate, normal rhythm, normal heart sounds. Absent: systolic murmur, diastolic murmur, rubs, gallop, clicks GI/Abdominal exam: Present: soft, normal bowel sounds. Absent: distended, tenderness, guarding, rebound, rigid Extremities exam: Present: normal inspection, full ROM, normal capillary refill. Absent: tenderness, pedal edema, joint swelling, calf tenderness Back exam: Present: normal inspection Neurological exam: Present: alert, oriented X3, CN II-XII intact Psychiatric exam: Present: normal affect, normal mood Skin exam: Present: warm, dry, intact, normal color. Absent: rash Course Vital Signs 01/05/17 01/05/17 01/05/17 18:50 19:05 19:29 Temperature 97.9 F Pulse Rate 92 100 87 Respiratory 36 H 43 H 22 Rate Blood Pressure 117/83 107/53 117/58 O2 Sat by Pulse 96 100 97 Oximetry 01/05/17 01/05/17 19:30 19:38 Temperature Pulse Rate 84 88 Respiratory Rate Blood Pressure O2 Sat by Pulse Oximetry - Reevaluation(s) Reevaluation #1: 01/05/17 19:46 Symptoms improved on breathing treatments EKG Findings - EKG Comments: EKG Findings:: EKG shows normal sinus rhythm rate of 89, VA 142, QRS 80, QTC 425 Medical Decision Making - Medical Decision Making 48 female here for evaluation. Patient has a for evaluation of shortness right chest and COPD exacerbation, currently on. She was, positive improvement in the ER, failure of outpatient therapy will be admitted for cardiopulmonary resuscitation - Lab Data Result diagrams: 01/05/17 19:05 Lab Results 01/05/17 01/05/17 Range/Units 19:05 19:05 WBC 4.6 (3.8-10.6) k/uL RBC 2.90 L (4.30-5.90) m/uL Hgb 10.1 L (13.0-17.5) gm/dL Hct 30.9 L (39.0-53.0) % MCV 106.6 H (80.0-100.0) fL MCH 35.0 (25.0-35.0) pg MCHC 32.8 (31.0-37.0) g/dL RDW 17.3 H (11.5-15.5) % Plt Count 297 (150-450) k/uL Neutrophils % 55 % Lymphocytes % 34 % Monocytes % 5 % Eosinophils % 2 % Basophils % 1 % Neutrophils # 2.5 (1.3-7.7) k/uL Lymphocytes # 1.5 (1.0-4.8) k/uL Monocytes # 0.2 (0-1.0) k/uL Eosinophils # 0.1 (0-0.7) k/uL Basophils # 0.0 (0-0.2) k/uL Hypochromasia Slight Poikilocytosis Slight Anisocytosis Slight Macrocytosis Marked PT 10.3 (9.0-12.0) sec INR 1.0 (<1.2) APTT 23.9 (22.0-30.0) sec - Radiology Data Radiology results: report reviewed (Chest x-ray negative for acute disease), image reviewed Disposition Clinical Impression: Acute exacerbation of chronic obstructive airways disease Disposition: ADMITTED IP TO THIS HOSP Condition: Fair Referrals: Yang Corrigan DO [Primary Care Provider] - 1-2 days
[2017-01-05] MEDS ORDERED: SODIUM CHLORIDE 0.9% 1,000 ML IV STA ×2 (19:02)
[2017-01-05] MEDS ORDERED: ALBUTEROL NEBULIZED 2.5 MG/3 ML INHALATION STA (19:02)
[2017-01-05] MEDS ORDERED: IPRATROPIUM 0.5 MG/2.5 ML NEBU INHALATION STA (19:02)
[2017-01-05 19:30] LABS: Anisocytosis Slight; Basophils % (A) 1 %; CH 34.1; CHCM 32.1; Eosinophils # (A) 0.1 k/uL (0-0.7); Eosinophils % (A) 2 %; HCT 30.9 % (39.0-53.0); HDW 3.48; HGB 10.1 gm/dL (13.0-17.5); Hypochromasia Slight; Luc # (Auto) 0.17; Luc % (Auto) 4; Lymphocytes # (A) 1.5 k/uL (1.0-4.8); Lymphocytes % (A) 34 %; MCHC 32.8 g/dL (31.0-37.0); MCV 106.6 fL (80.0-100.0); Macrocytosis Marked; Mean Platelet Volume 7.5; Monocytes # (A) 0.2 k/uL (0-1.0); Monocytes % (A) 5 %; Neutrophils # (A) 2.5 k/uL (1.3-7.7); Neutrophils % (A) 55 %; Poikilocytosis Slight; RDW 17.3 % (11.5-15.5); WBC 4.6 k/uL (3.8-10.6); WBC (Perox) 4.52
[2017-01-05 19:34] LABS: Partial Thromboplastin Time 23.9 sec (22.0-30.0); Prothrombin Time 10.3 sec (9.0-12.0)
[2017-01-05] MEDS ORDERED: methylPREDNISolone SOD SUCCI 125 MG/2 ML VIAL IV STA (19:44)
[2017-01-05 19:45] LABS: Creatine Kinase 42 U/L (55-170)
[2017-01-05] MEDS ORDERED: AZITHROMYCIN 500 MG in SODIUM CHLORIDE 0.9% 250 ML IVPB STA (19:45)
[2017-01-05 19:47] LABS: ALT 65 U/L (21-72); AST 44 U/L (17-59); Alkaline Phosphatase 137 U/L (38-126); Anion Gap 12 mmol/L; Blood Urea Nitrogen 17 mg/dL (9-20); Calcium 9.7 mg/dL (8.4-10.2); Carbon Dioxide 26 mmol/L (22-30); Chloride 100 mmol/L (98-107); Glucose 85 mg/dL (74-99); Magnesium 1.9 mg/dL (1.6-2.3); Non-African American GFR(MDRD) >60 (>60 ml/min/1.73 sqM); Sodium 138 mmol/L (137-145); Total Bilirubin 0.5 mg/dL (0.2-1.3); Total Protein 8.2 g/dL (6.3-8.2)
[2017-01-05 19:58] LABS: Creatine Kinase MB 0.3 ng/mL (0.0-2.4); Troponin I <0.012 ng/mL (0.000-0.034)
[2017-01-05] MEDS ORDERED: MORPHINE SULFATE 4 MG/ML SYRINGE IVP STA (20:04)
--- NOTE | 2017-01-05 20:23 | XR ---
EXAMINATION TYPE: XR chest 1V portable DATE OF EXAM: 01/05/2017 COMPARISON: NONE INDICATION: Short of breath COPD TECHNIQUE: Single frontal view of the chest is obtained. FINDINGS: The heart size is normal. The pulmonary vasculature is normal. There is diffuse increased lung markings greater to the right upper lung field. Previous infiltrate a ppears to be resolving. Mild infiltrate is at the right costophrenic angle and is stable. IMPRESSION: 1. Clinical correlation recommended for resolving right upper lobe pneumonia and right costophrenic a ngle pneumonia. 2. Continued follow-up is recommended.
[2017-01-05] MEDS: IPRATROPIUM-ALBUTEROL 3 ML NEB INHALATION SCH (20:30)
[2017-01-05] MEDS ORDERED: IPRATROPIUM-ALBUTEROL 3 ML NEB INHALATION PRN (20:36)
[2017-01-05 23:04] VITALS: BMI 19.0
[2017-01-05] MEDS ORDERED: KETOROLAC 30 MG/ML 1 ML VIAL IVP STA (23:10)
[2017-01-05] MEDS ORDERED: methylPREDNISolone SOD SUCCI 125 MG/2 ML VIAL IV SCH (23:20)
[2017-01-05] MEDS: HYDROcodone/APAP 10-325MG 1 EACH TAB PO PRN (23:26)
[2017-01-05] MEDS: SODIUM CHLORIDE 0.9% 1,000 ML IV SCH (23:33)
[2017-01-06] MEDS: methylPREDNISolone SOD SUCCI 40 MG/ML 1 ML VIAL IV SCH ×4 (00:23→23:22)
[2017-01-06] MEDS: SODIUM CHLORIDE 0.9% 1,000 ML IV SCH ×2 (07:57→17:13)
[2017-01-06 07:58] LABS: Glucose,Whole Blood 166 mg/dL (75-99)
[2017-01-06] MEDS: INSULIN LISPRO (humaLOG) 300 UNIT/3 ML VIAL SQ SCH ×4 (08:00→21:13)
[2017-01-06] MEDS ORDERED: methylPREDNISolone SOD SUCCI 125 MG/2 ML VIAL IV SCH ×2 (08:00)
[2017-01-06] MEDS: FERROUS SULFATE 325 MG TAB PO SCH (08:02)
[2017-01-06] MEDS: MONTELUKAST 10 MG TAB PO SCH (08:02)
[2017-01-06] MEDS: AZITHROMYCIN 500 MG TAB PO SCH (08:02)
[2017-01-06] MEDS: CEFDINIR 300 MG CAP PO SCH ×2 (08:02→20:30)
[2017-01-06] MEDS: HYDROcodone/APAP 10-325MG 1 EACH TAB PO PRN ×2 (08:10→17:04)
[2017-01-06] MEDS: TIOTROPIUM 18 MCG/PUFF INHALER INHALATION SCH (08:40)
[2017-01-06] MEDS: BUDESONIDE 0.5 MG/2 ML NEBU INHALATION SCH ×2 (08:40→20:00)
[2017-01-06] MEDS: IPRATROPIUM-ALBUTEROL 3 ML NEB INHALATION SCH ×4 (08:40→20:00)
[2017-01-06] MEDS: ENOXAPARIN 40 MG/0.4 ML SYRINGE SQ SCH (10:30)
[2017-01-06 11:43] LABS: Glucose,Whole Blood 129 mg/dL (75-99)
--- NOTE | 2017-01-06 13:46 | HP ---
HISTORY AND PHYSICAL DATE OF SERVICE: 01/05/2017. CHIEF COMPLAINT: Shortness of breath, cough and sputum. HISTORY OF PRESENT ILLNESS: This 51-year-old, gentleman with a past medical history of COPD acute exacerbation was admitted to [facility] about 3 months ago with a COPD acute exacerbation as well as right upper lobe pneumonia. The patient treated with broad-spectrum IV antibiotics. Patient improved significantly and the patient was sent home. Dr. Latham and Dr. Meza saw the patient during hospitalization. Currently the patient is having increasing shortness of breath, cough and sputum. Patient came to [facility] and admitted for further evaluation and treatment. The patient had right upper lobe pneumonia. There is no history of any fever, rigors. No history of headache, loss of consciousness or headache. The patient is complaining of back pain in the low back area which is mildly radiating to the left side. PAST MEDICAL HISTORY: History of recent upper lobe pneumonia, history of COPD, history prostate disorder, history spontaneous pneumothorax, anxiety and depression. MEDICATIONS: Prior to admission include home medications are: 1. Chantix 1 mg p.o. b.i.d. 2. Spiriva one puff a day. 3. Singular 10 mg daily. 4. DuoNeb q.i.d. 5. [place] 1 tab p.o. daily. 6. Advair 250/50 1 puff b.i.d. 7. Iron sulfate 325 mg daily. 9. Zithromax 250 mg Friday, Friday and Friday. ALLERGIES: None. FAMILY HISTORY: History of cancer, CAD, lung cancer, and lymphoma. SOCIAL HISTORY: History of smoking. No history of alcohol intake. 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 REVIEW OF SYSTEMS: ENT: No diminished hearing or vision. CARDIOVASCULAR: No angina. RESPIRATORY: As mentioned earlier. GI: No nausea. : No dysuria. NERVOUS SYSTEM: No numbness or weakness. ALLERGY/IMMUNOLOGY: No asthma or hayfever. MUSCULOSKELETAL: As mentioned earlier. HEMATOLOGY/ONCOLOGY: No history of anemia. ENDOCRINE: No history of diabetes or hypothyroidism. CONSTITUTIONAL: As mentioned earlier. DERMATOLOGY: Negative. RHEUMATOLOGY: Negative. PSYCHIATRY: As mentioned earlier. PHYSICAL EXAMINATION: The patient is alert and oriented x3. Pulse 103, blood pressure 106/65, respiration 18, temperature 97.2, pulse ox 100% on 3 L. HEENT: Conjunctivae normal. Oral mucosa moist. NECK: No jugular venous distention. No carotid bruit. No lymph node enlargement. CARDIOVASCULAR: S1, S2. No S3 or S4. RESPIRATORY: Breath sounds diminished at the bases. Bilateral scattered rhonchi and crackles. Wheezes more predominant on the right side especially the right upper lobe. Harsh breathing also present. No active bronchial breathing. ABDOMEN: Soft, scaphoid, nontender, no mass palpable. LEGS: No edema, no swelling. NERVOUS SYSTEM: Higher function as mentioned. Moves all four limbs. Mild diffuse weakness. LYMPHATICS: No lymphadenopathy in the neck, axillae or groin. SKIN: No rash, ulcer or bleeding. LABS: WBC 4.2, hemoglobin 10.1. Alkaline phosphatase 137, creatinine is 42. Chest x- ray, personally reviewed, showed a right upper lobe pneumonia, right costophrenic angle, pneumonia. ASSESSMENT: 1. Chronic obstructive pulmonary disease acute exacerbation with right upper lobe pneumonia with possibly gram negative. 2. Previous history of pneumonia. 3. History of nicotine dependence. 4. Protein calorie malnutrition, [id number], with BMI of 19. 5. History of spontaneous pneumothorax. 6. Anxiety and depression. 7. Anemia of macrocytic, possibly nutritional in origin. RECOMMENDATIONS AND DISCUSSION: This 51-year-old gentleman presented with multiple complex medical issues, we will monitor the patient closely. Continue the current medications, symptomatic treatment. Will initiate broad-spectrum IV antibiotics and steroids. Will also obtain pulmonary consultation. Continue to monitor. Continue bronchial treatment. Smoking cessation advised. Prognosis guarded because of multiple complex medical issues. Further recommendations to follow. Copy of dictation forwarded to Dr. Corrigan who is the primary physician. The patient is to follow with Dr. Corrigan in the outpatient setting. MMODL / IJN: [id number] / NILAY
--- NOTE | 2017-01-06 14:58 | P.CNPUL ---
History of Present Illness Consult date: 01/06/17 Reason for consult: dyspnea History of present illness: A pleasant 51-year-old male patient was Hospital as for an acute COPD exacerbation. This patient carries on [id number] smoking history. He is known to have COPD. He is also known to have previous bilateral pneumothoraces requiring bilateral chest tube insertion and thoracotomy that was done on the right side many years back. He has been using oxygen over the past 1 year. He also uses Advair and Spiriva as maintenance and he has albuterol/ipratropium neb last treatment to be done on an aggressive basis [id number]. The patient was getting more short of breath and he was having symptoms of acute bronchitis with cough chest congestion and wheezing. He presented to his primary care physician with was given an antibiotic shot and was placed on some oral antibiotics and questionable steroids. His condition did not improve and based on that he presented to the hospital. His chest x-rays consistent with COPD and there is a questionable airspace disease in the right upper lobe.. His IV Solu-Medrol 40 mg every 8 hours. He is also on oral Zithromax. DuoNeb nebulized treatments around the clock every 6 hours. No hemoptysis. No pleurisy. No angina.. No other complaints otherwise. Note that the patient was treated for a similar COPD exacerbation back in October 2016. At that time the patient also had an extensive right upper lobe consolidation/pneumonia. During the earlier hospitalization a CAT scan of the chest was also done that showed extensive emphysematous changes bilaterally more so in the upper lobes. No evidence of any malignancy. Review of Systems Constitutional: Reports weakness, Reports weight loss Eyes: denies blurred vision, denies bulging eye, denies decreased vision Ears: deny: decreased hearing, ear discharge, earache Ears, nose, mouth and throat: Reports as per HPI Cardiovascular: Reports decreased exercise tolerance, Reports dyspnea on exertion, Reports shortness of breath Respiratory: Reports cough, Reports dyspnea Gastrointestinal: Denies abdominal pain, Denies diarrhea, Denies nausea, Denies vomiting Musculoskeletal: Denies myalgias Musculoskeletal: absent: ankle pain, ankle stiffness, ankle swelling Integumentary: Denies pruritus, Denies rash Neurological: Denies numbness, Denies weakness Psychiatric: Denies anxiety, Denies depression Endocrine: Denies fatigue, Denies weight change Past Medical History Past Medical History: COPD, Prostate Disorder Additional Past Medical History / Comment(s): abdominal aortic aneurysm, difficulties with memory, chronic hypoxic respiratory failure, advanced COPD with upper lobe predominance, history of bilateral pneumothoraces at the young age requiring breath or chest tube insertion and pleurodesis. The patient also has BPH and chronic degenerative arthritis and hip pain on the right. Hospitalized for the last week for COPD/ pneumonia discharged 10-17-16. Wears 02 @ 2L. History of Any Multi-Drug Resistant Organisms: None Reported Additional Past Surgical History / Comment(s): spontaneous pneumo thorax (L x1, Rx2) Past Anesthesia/Blood Transfusion Reactions: No Reported Reaction Additional Past Anesthesia/Blood Transfusion Reaction / Comment(s): pt stated he moved here from [place] a year ago. lives alone in [facility]-no steps. no outside services received. has home 02 /concnetrator. no pets. no past service. 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 Past Psychological History: Anxiety, Depression Additional Psychological History / Comment(s): pt denies wanting to harm self, stated some mild depression d/t not being able to do much d/t copd.(continues to smoke 1 ppd). As noted continues to smoke despite his oxygen-dependent COPD. Alcohol use or abuse. Denies recreational drug use. No experience. No international travel. No animal exposures. Is not and has no children Smoking Status: Current every day smoker Past Alcohol Use History: None Reported Additional Past Alcohol Use History / Comment(s): States trying to quit smoking. Past Drug Use History: None Reported - Past Family History Father History Unknown: Yes Mother Family Medical History: Cancer, Coronary Artery Disease (CAD) Additional Family Medical History / Comment(s): lung cancer, lymphoma. Medications and Allergies Home Medications Medication Instructions Recorded Confirmed Type Fluticasone/Salmeterol [Advair 1 puff INHALATION RT-BID 10/09/16 01/05/17 History 250-50 Diskus] Tiotropium 18 Mcg/Puff [Spiriva] 1 cap INHALATION RT-DAILY 10/09/16 01/05/17 History Ipratropium-Albuterol Nebulize 3 ml INHALATION RT-QID #120 neb 10/15/16 Rx [Duoneb 0.5 mg-3 mg/3 ml Soln] Azithromycin [Zithromax] 250 mg PO MOWEFR 01/05/17 01/05/17 History Cefdinir [Omnicef] 300 mg PO BID 01/05/17 01/05/17 History Ferrous Sulfate [Feosol] 325 mg PO DAILY 01/05/17 01/05/17 History HYDROcodone/APAP 10-325MG [[place] 1 tab PO TID 01/05/17 01/05/17 History 10-325] Montelukast [Singulair] 10 mg PO DAILY 01/05/17 01/05/17 History Varenicline [Chantix] 1 mg PO BID 01/05/17 01/05/17 History Allergies Allergy/AdvReac Type Severity Reaction Status Date / Time No Known Allergies Allergy Verified 01/05/17 20:16 Physical Exam Vitals: Vital Signs Temp Pulse Pulse Resp BP BP Pulse Ox 01/06/17 11:48 96 01/06/17 11:36 92 01/06/17 08:50 100 01/06/17 08:41 100 01/06/17 08:00 100 18 01/06/17 07:00 97.4 F L 85 18 92/55 99 01/06/17 00:00 18 01/05/17 20:40 97.2 F L 103 H 18 106/64 100 01/05/17 20:30 98 01/05/17 20:28 98 01/05/17 20:00 98.7 F 93 22 109/61 100 01/05/17 19:58 88 24 96/55 97 01/05/17 19:38 88 01/05/17 19:30 84 01/05/17 19:29 87 22 117/58 97 01/05/17 19:05 100 43 H 107/53 100 01/05/17 18:50 97.9 F 92 36 H 117/83 96 Intake and Output 01/05/17 01/06/17 01/06/17 22:59 06:59 14:59 Intake Total 413 912 1389 Output Total 600 Balance -102 761 9588 Intake: Intake, IV Titration 800 600 Amount Sodium Chloride 0.9% 1, 800 600 000 ml @ 100 mls/hr IV . Q10H [facility] Rx#:[id number] Oral 400 1080 Output: Urine 600 Other: Voiding Method Toilet Toilet # Voids 2 Weight 63.5 kg Thin, comfortable likely distress not using his incentive muscles of breathing.Head exam was generally normal. There was no scleral icterus or corneal arcus. Mucous membranes were moist.Neck was supple and without jugular venous distension, thyromegaly, or carotid bruits. Carotids were easily palpable bilaterally. There was no adenopathy. Lung sounds are diminished bilaterally along with some few scattered expiratory wheezes heard throughout lung levine.Cardiac exam revealed the PMI to be normally situated and sized. The rhythm was regular and no extrasystoles were noted during several minutes of auscultation. The first and second heart sounds were normal and physiologic splitting of the second heart sound was noted. There were no murmurs, rubs, clicks, or gallops.Abdominal exam revealed normal bowel sounds. The abdomen was soft, non-tender, and without masses, organomegaly, or appreciable enlargement of the abdominal aorta. Examination of the extremities revealed easily palpable radial, femoral and pedal pulses. There was no cyanosis, clubbing or edema. Results - Laboratory Findings CBC and BMP: 01/05/17 19:05 01/05/17 19:05 PT/INR, D-dimer PT 10.3 sec (9.0-12.0) 01/05/17 19:05 INR 1.0 (<1.2) 01/05/17 19:05 Abnormal lab findings: Abnormal Labs 01/05/17 01/05/17 01/05/17 19:05 19:05 19:05 RBC 2.90 L Hgb 10.1 L Hct 30.9 L MCV 106.6 H RDW 17.3 H POC Glucose (mg/dL) Alkaline Phosphatase 137 H Total Creatine Kinase 42 L 01/06/17 01/06/17 07:23 11:33 RBC Hgb Hct MCV RDW POC Glucose (mg/dL) 166 H 129 H Alkaline Phosphatase Total Creatine Kinase - Diagnostic Findings Chest x-ray: image reviewed Assessment and Plan Plan: Assessment 1 acute COPD exacerbation with secondary shortness of breath. The chest x-ray was reviewed. There is a concern for right upper lobe airspace disease/ consolidation. Nevertheless, the patient was in the hospital back in October with an extensive right upper lobe pneumonia consolidation. In comparison the chest x-ray is improved and there is some probable residual infiltration/scarring of the right upper lobe in the setting of extensive emphysema an upper lobe predominance. I doubt an acute or an ongoing lung infection and I favor that the changes a right upper lobe are rather chronic yet improved in comparison. 2 recent hospitalization for a right upper lobe pneumonia 3 advanced oxygen- dependent COPD with extensive emphysematous changes bilaterally more so in the upper lobes 4 history of bilateral pneumothoraces requiring chest tube insertion and pleurodesis 5 smoking 6 exertional dyspnea 7 weight loss Plan Agree on the current treatment. Discontinue Omnicef. Continue Zithromax. Continue IV Solu Medrol. Continue bronchodilators. Smoking cessation counseling was done. The chest x-ray shows right upper lobe infiltration which is chronic and improved compared to the previous chest x-ray and this is a frequently and the reminiscent of a previous right upper lobe infection. We'll continue to follow.
[2017-01-06 17:26] LABS: Glucose,Whole Blood 153 mg/dL (75-99)
[2017-01-06 20:12] LABS: Glucose,Whole Blood 127 mg/dL (75-99)
[2017-01-07] MEDS: HYDROcodone/APAP 10-325MG 1 EACH TAB PO PRN ×3 (00:52→18:45)
[2017-01-07] MEDS: SODIUM CHLORIDE 0.9% 1,000 ML IV SCH ×2 (03:45→11:40)
[2017-01-07] MEDS: BUDESONIDE 0.5 MG/2 ML NEBU INHALATION SCH ×2 (07:12→18:58)
[2017-01-07] MEDS: IPRATROPIUM-ALBUTEROL 3 ML NEB INHALATION SCH ×4 (07:12→18:59)
[2017-01-07] MEDS: TIOTROPIUM 18 MCG/PUFF INHALER INHALATION SCH (07:14)
[2017-01-07 07:29] LABS: Glucose,Whole Blood 120 mg/dL (75-99)
--- NOTE | 2017-01-07 08:05 | PN ---
PROGRESS NOTE DATE OF SERVICE: 01/06/2017 This 51-year-old gentleman who was admitted with cough and sputum had right upper lobe pneumonia. The patient also had extensive lung lesions on the right side. The patient is evaluated by Dr. Salinas previously. The possibility of bronchoscopy is also apparently considered by Dr. Latham previously. There is history of fever, rigors. No history of headache, loss of consciousness, seizures. Bronchodilators. The patient is feeling slightly better. PAST MEDICAL HISTORY: Reviewed. REVIEW OF SYSTEMS: CARDIOVASCULAR: No angina. RESPIRATORY: As mentioned earlier. GI: No nausea. : No dysuria. NERVOUS SYSTEM: No numbness or weakness. CURRENT MEDICATIONS ARE: Current medications are reviewed and include: 1. [place] 10 mg q.i.d. and p.r.n. 2. Albuterol q.i.d. and p.r.n. 3. Zithromax 500 mg. 4. Pulmicort 0.5 b.i.d. 6. Lovenox 40 mg subcu daily. 7. Iron sulfate 320 mg p.o. daily. 8. Insulin to scale. 9. Solu-Medrol 40 IV q.8h. 10.Spiriva 1 puff daily. PHYSICAL EXAM: Patient is alert, oriented x3. Pulse 94, blood pressure 150/80, respiration 18, temperature normal, pulse ox 90% on 3 L. HEENT: Conjunctivae normal. NECK: No jugular venous distention. CARDIOVASCULAR: S1, S2 muffled. RESPIRATORY: Breath sounds diminished in the bases. A few scattered rhonchi and crackles. Expiratory wheezing also present. The breath sounds are markedly diminished on the right side and more heard on the right side. ABDOMEN: Soft, nontender. No mass palpable. LEGS: No edema. NERVOUS SYSTEM: Higher function as mentioned. Moves all four limbs. No focal motor deficits. LYMPHATIC: No lymphadenopathy in the neck, axillae or groin. SKIN: No rash, ulcer or bleeding. LABORATORY DATA: WBC 4.6, hemoglobin 10.1. ASSESSMENT: 1. Chronic obstructive pulmonary disease acute exacerbation with right upper lobe pneumonia with possibly gram-negative. 2. History of previous pneumonia. 3. History of nicotine dependence. 4. Protein calorie malnutrition [id number] with BMI of 19. 5. History of spontaneous pneumothorax. 6. Anxiety and depression. 7. Anemia, microcytic, possibly nutritional in origin. RECOMMENDATIONS AND DISCUSSION: I recommend to continue the current medications. Continue to monitor. Continue symptomatic treatment. We will monitor the patient closely. Continue steroids. Continue bronchodilators. Continue antibiotics. Will closely follow up with Dr. Latham and Dr. Salinas for possible scope and further recommendations to follow. MMODL / IJN: [id number] / MTDD
[2017-01-07] MEDS: INSULIN LISPRO (humaLOG) 300 UNIT/3 ML VIAL SQ SCH ×4 (08:35→20:08)
[2017-01-07] MEDS: methylPREDNISolone SOD SUCCI 40 MG/ML 1 ML VIAL IV SCH ×3 (08:38→23:25)
[2017-01-07] MEDS: CEFDINIR 300 MG CAP PO SCH ×2 (08:39→20:08)
[2017-01-07] MEDS: AZITHROMYCIN 500 MG TAB PO SCH (09:26)
[2017-01-07] MEDS: FERROUS SULFATE 325 MG TAB PO SCH (09:27)
[2017-01-07] MEDS: ENOXAPARIN 40 MG/0.4 ML SYRINGE SQ SCH (09:27)
[2017-01-07] MEDS: MONTELUKAST 10 MG TAB PO SCH (09:28)
[2017-01-07 11:38] LABS: Glucose,Whole Blood 136 mg/dL (75-99)
[2017-01-07 11:41] LABS: Anisocytosis Slight; Basophils % (A) 0 %; CH 33.7; Eosinophils % (A) 0 %; HCT 25.1 % (39.0-53.0); HDW 3.41; Hypochromasia Marked; Luc # (Auto) 0.09; Luc % (Auto) 2; Lymphocytes # (A) 0.7 k/uL (1.0-4.8); Lymphocytes % (A) 12 %; MCH 34.3 pg (25.0-35.0); MCHC 31.4 g/dL (31.0-37.0); MCV 109.3 fL (80.0-100.0); Macrocytosis Marked; Monocytes # (A) 0.2 k/uL (0-1.0); Monocytes % (A) 4 %; Neutrophils # (A) 5.1 k/uL (1.3-7.7); Neutrophils % (A) 82 %; Poikilocytosis Slight; RDW 17.8 % (11.5-15.5); WBC 6.2 k/uL (3.8-10.6); WBC (Perox) 6.44
[2017-01-07 11:42] LABS: HGB 7.9 gm/dL (13.0-17.5)
[2017-01-07 11:51] LABS: Anion Gap 6 mmol/L; Blood Urea Nitrogen 13 mg/dL (9-20); Calcium 8.7 mg/dL (8.4-10.2); Carbon Dioxide 25 mmol/L (22-30); Chloride 107 mmol/L (98-107); Glucose 121 mg/dL (74-99); Non-African American GFR(MDRD) >60 (>60 ml/min/1.73 sqM); Potassium 4.2 mmol/L (3.5-5.1); Sodium 138 mmol/L (137-145)
--- NOTE | 2017-01-07 12:41 | P.PN ---
Subjective A pleasant 51-year-old male patient was Hospital as for an acute COPD exacerbation. This patient carries on [id number] smoking history. He is known to have COPD. He is also known to have previous bilateral pneumothoraces requiring bilateral chest tube insertion and thoracotomy that was done on the right side many years back. He has been using oxygen over the past 1 year. He also uses Advair and Spiriva as maintenance and he has albuterol/ipratropium neb last treatment to be done on an aggressive basis [id number]. The patient was getting more short of breath and he was having symptoms of acute bronchitis with cough chest congestion and wheezing. He presented to his primary care physician with was given an antibiotic shot and was placed on some oral antibiotics and questionable steroids. His condition did not improve and based on that he presented to the hospital. His chest x-rays consistent with COPD and there is a questionable airspace disease in the right upper lobe.. His IV Solu-Medrol 40 mg every 8 hours. He is also on oral Zithromax. DuoNeb nebulized treatments around the clock every 6 hours. No hemoptysis. No pleurisy. No angina.. No other complaints otherwise. Note that the patient was treated for a similar COPD exacerbation back in October 2016. At that time the patient also had an extensive right upper lobe consolidation/pneumonia. During the earlier hospitalization a CAT scan of the chest was also done that showed extensive emphysematous changes bilaterally more so in the upper lobes. No evidence of any malignancy. The patient is seen again today 01/07/2017 in follow-up on the regular medical floor. He is awake and alert in no acute distress. He is breathing easier today as compared to yesterday. Not quite back to his baseline. He is maintaining good O2 saturations up to 100% on 2 L/m per nasal cannula. He is maintained on bronchodilators, Pulmicort, IV Solu-Medrol, Singulair, empiric antibiotics in the form of azithromycin. He's been afebrile. Hemodynamically stable. He has had a drop in his hemoglobin from 10.1-7.9. No active bleeding. He is on Feosol. Objective - Vital Signs Vital signs: Vital Signs Temp 96.9 F L 01/07/17 07:30 Pulse 78 01/07/17 11:11 Resp 17 01/07/17 08:30 BP 91/54 01/07/17 07:30 Pulse Ox 100 01/07/17 07:30 Intake & Output 01/06/17 01/07/17 01/07/17 18:59 06:59 18:59 Intake Total 1680 1090 Output Total 680 1300 725 Balance 1000 -210 -725 Weight 63.5 kg Intake: Intake, IV Titration 600 500 Amount Sodium Chloride 0.9% 1, 600 500 000 ml @ 100 mls/hr IV . Q10H [facility] Rx#:[id number] Oral 1080 590 Output: Urine 680 1300 725 Other: Voiding Method Toilet Toilet Toilet Urinal Urinal # Voids 2 2 - Exam Thin, comfortable no distress not using his incentive muscles of breathing. Head exam was generally normal. There was no scleral icterus or corneal arcus. Mucous membranes were moist.Neck was supple and without jugular venous distension, thyromegaly, or carotid bruits. Carotids were easily palpable bilaterally. There was no adenopathy. Lung sounds are diminished bilaterally along with some few scattered expiratory wheezes heard throughout lung levine.Cardiac exam revealed the PMI to be normally situated and sized. The rhythm was regular and no extrasystoles were noted during several minutes of auscultation. The first and second heart sounds were normal and physiologic splitting of the second heart sound was noted. There were no murmurs, rubs, clicks, or gallops.Abdominal exam revealed normal bowel sounds. The abdomen was soft, non-tender, and without masses, organomegaly, or appreciable enlargement of the abdominal aorta. Examination of the extremities revealed easily palpable radial, femoral and pedal pulses. There was no cyanosis, clubbing or edema. - Labs CBC & Chem 7: 01/07/17 11:22 01/07/17 11:22 Labs: Abnormal Lab Results - Last 24 Hours (Table) 01/06/17 01/06/17 01/07/17 Range/Units 17:22 20:11 07:26 RBC (4.30-5.90) m/uL Hgb (13.0-17.5) gm/dL Hct (39.0-53.0) % MCV (80.0-100.0) fL RDW (11.5-15.5) % Lymphocytes # (1.0-4.8) k/uL Glucose (74-99) mg/dL POC Glucose (mg/dL) 153 H 127 H 120 H (75-99) mg/dL 01/07/17 01/07/17 01/07/17 Range/Units 11:22 11:22 11:30 RBC 2.30 L (4.30-5.90) m/uL Hgb 7.9 L D (13.0-17.5) gm/dL Hct 25.1 L (39.0-53.0) % MCV 109.3 H (80.0-100.0) fL RDW 17.8 H (11.5-15.5) % Lymphocytes # 0.7 L (1.0-4.8) k/uL Glucose 121 H (74-99) mg/dL POC Glucose (mg/dL) 136 H (75-99) mg/dL Assessment and Plan Plan: Assessment 1 acute COPD exacerbation with secondary shortness of breath. The chest x-ray was reviewed. There is a concern for right upper lobe airspace disease/ consolidation. Nevertheless, the patient was in the hospital back in October with an extensive right upper lobe pneumonia consolidation. In comparison the chest x-ray is improved and there is some probable residual infiltration/scarring of the right upper lobe in the setting of extensive emphysema an upper lobe predominance. I doubt an acute or an ongoing lung infection and I favor that the changes a right upper lobe are rather chronic yet improved in comparison. 2 recent hospitalization for a right upper lobe pneumonia 3 advanced oxygen- dependent COPD with extensive emphysematous changes bilaterally more so in the upper lobes 4 history of bilateral pneumothoraces requiring chest tube insertion and pleurodesis 5 smoking 6 exertional dyspnea 7 weight loss Plan all in The patient was seen and evaluated by Dr. Latham. We'll continue with his current medications for now. We will increase his activity as tolerated. We' ll repeat a chest x-ray in the a.m. We'll continue to follow.
[2017-01-07 17:18] LABS: Glucose,Whole Blood 153 mg/dL (75-99)
--- NOTE | 2017-01-07 18:02 | PN ---
PROGRESS NOTE DATE OF SERVICE: 01/07/17 INTERIM HISTORY: This 51-year-old gentleman admitted with COPD exacerbation with right upper lobe pneumonia is being closely monitored. No chest pain. No palpitations. No fever. EXAM: Alert, oriented times three. Pulse is 78, blood pressure 91/54, respirations 20, temperature 98.2, pulse ox 100% on 2 L nasal cannula. HEENT: Conjunctivae normal. Neck no jugular venous distention. Cardiovascular: S1, S2 muffled. Respiratory: Breath sounds diminished at the bases. Bilateral scattered rhonchi and crackles. ABDOMEN: Soft, nontender, no masses. Legs: No edema. No swelling. Central nervous system: No focal deficits. LABORATORY DATA: WBC 6.8, hemoglobin 7.9. ASSESSMENT: 1. Chronic obstructive pulmonary disease acute exacerbation with right upper lobe pneumonia with possibly gram negative. 2. History of previous pneumonia. 3. History of nicotine dependence. 4. Protein calorie malnutrition. Mild to moderate. BMI of 19. 5. History of spontaneous pneumothorax. 6. Anxiety and depression. 7. Anemia, microcytic possibly nutritional in origin. RECOMMENDATIONS AND DISCUSSION: Continue current management, monitoring and symptomatic treatment. Continue with antibiotics. Continue the bronchodilators, steroids and closely follow with Dr. Latham. Further recommendations to follow. MMODL / IJN: [id number] /
[2017-01-07 20:00] LABS: Glucose,Whole Blood 144 mg/dL (75-99)
[2017-01-08] MEDS: HYDROcodone/APAP 10-325MG 1 EACH TAB PO PRN ×2 (02:04→10:28)
[2017-01-08] MEDS: SODIUM CHLORIDE 0.9% 1,000 ML IV SCH (04:33)
[2017-01-08] MEDS: BUDESONIDE 0.5 MG/2 ML NEBU INHALATION SCH (07:18)
[2017-01-08] MEDS: IPRATROPIUM-ALBUTEROL 3 ML NEB INHALATION SCH ×3 (07:18→15:15)
[2017-01-08] MEDS: TIOTROPIUM 18 MCG/PUFF INHALER INHALATION SCH (07:26)
[2017-01-08 07:34] LABS: Anisocytosis Slight; Basophils % (A) 0 %; CH 33.5; CHCM 30.5; Eosinophils % (A) 0 %; HDW 3.35; Hypochromasia Marked; Luc % (Auto) 2; Lymphocytes % (A) 18 %; MCHC 30.8 g/dL (31.0-37.0); MCV 110.3 fL (80.0-100.0); Macrocytosis Marked; Mean Platelet Volume 7.2; Monocytes # (A) 0.2 k/uL (0-1.0); Monocytes % (A) 4 %; Neutrophils # (A) 4.3 k/uL (1.3-7.7); Neutrophils % (A) 76 %; RBC 2.36 m/uL (4.30-5.90); RDW 17.8 % (11.5-15.5); WBC 5.7 k/uL (3.8-10.6); WBC (Perox) 6.06
[2017-01-08 07:40] LABS: Anion Gap 5 mmol/L; Blood Urea Nitrogen 16 mg/dL (9-20); Calcium 8.6 mg/dL (8.4-10.2); Carbon Dioxide 28 mmol/L (22-30); Chloride 107 mmol/L (98-107); Glucose 101 mg/dL (74-99); Non-African American GFR(MDRD) >60 (>60 ml/min/1.73 sqM); Potassium 4.9 mmol/L (3.5-5.1); Sodium 140 mmol/L (137-145)
[2017-01-08 08:05] LABS: Glucose,Whole Blood 128 mg/dL (75-99)
[2017-01-08] MEDS: INSULIN LISPRO (humaLOG) 300 UNIT/3 ML VIAL SQ SCH ×2 (08:38→13:52)
[2017-01-08 09:12] LABS: Manual Review Performed
[2017-01-08] MEDS: methylPREDNISolone SOD SUCCI 40 MG/ML 1 ML VIAL IV SCH (09:17)
[2017-01-08] MEDS: AZITHROMYCIN 500 MG TAB PO SCH (09:18)
[2017-01-08] MEDS: ENOXAPARIN 40 MG/0.4 ML SYRINGE SQ SCH (09:19)
[2017-01-08] MEDS: FERROUS SULFATE 325 MG TAB PO SCH (09:19)
[2017-01-08] MEDS: MONTELUKAST 10 MG TAB PO SCH (09:20)
--- NOTE | 2017-01-08 10:25 | P.PN ---
Subjective A pleasant 51-year-old male patient was Hospital as for an acute COPD exacerbation. This patient carries on [id number] smoking history. He is known to have COPD. He is also known to have previous bilateral pneumothoraces requiring bilateral chest tube insertion and thoracotomy that was done on the right side many years back. He has been using oxygen over the past 1 year. He also uses Advair and Spiriva as maintenance and he has albuterol/ipratropium neb last treatment to be done on an aggressive basis [id number]. The patient was getting more short of breath and he was having symptoms of acute bronchitis with cough chest congestion and wheezing. He presented to his primary care physician with was given an antibiotic shot and was placed on some oral antibiotics and questionable steroids. His condition did not improve and based on that he presented to the hospital. His chest x-rays consistent with COPD and there is a questionable airspace disease in the right upper lobe.. His IV Solu-Medrol 40 mg every 8 hours. He is also on oral Zithromax. DuoNeb nebulized treatments around the clock every 6 hours. No hemoptysis. No pleurisy. No angina.. No other complaints otherwise. Note that the patient was treated for a similar COPD exacerbation back in October 2016. At that time the patient also had an extensive right upper lobe consolidation/pneumonia. During the earlier hospitalization a CAT scan of the chest was also done that showed extensive emphysematous changes bilaterally more so in the upper lobes. No evidence of any malignancy. The patient is seen again today 01/07/2017 in follow-up on the regular medical floor. He is awake and alert in no acute distress. He is breathing easier today as compared to yesterday. Not quite back to his baseline. He is maintaining good O2 saturations up to 100% on 2 L/m per nasal cannula. He is maintained on bronchodilators, Pulmicort, IV Solu-Medrol, Singulair, empiric antibiotics in the form of azithromycin. He's been afebrile. Hemodynamically stable. He has had a drop in his hemoglobin from 10.1-7.9. No active bleeding. He is on Feosol. The patient is seen again today 01/08/2017 in follow-up in the regular medical floor. He remains awake and alert in no acute distress. He's been up ambulating in the hallway without any worsening shortness of breath. He has a loose nonproductive cough. No chills or night sweats. He continues to maintain good O2 saturations in the upper 90s on 2 L/m per nasal cannula. He's been afebrile. No leukocytosis. Current hemoglobin 8.0. Follow-up chest x- ray pending. Objective - Vital Signs Vital signs: Vital Signs Temp 96.8 F L 01/08/17 07:25 Pulse 77 01/08/17 07:34 Resp 22 01/08/17 08:21 BP 112/83 01/08/17 07:25 Pulse Ox 98 01/08/17 07:25 Intake & Output 01/07/17 01/08/17 01/08/17 18:59 06:59 18:59 Intake Total 1100 Output Total 975 1400 Balance -975 1100 -1400 Weight 63.5 kg Intake: IV 1100 Sodium Chloride 0.9% 1, 1100 000 ml @ 100 mls/hr IV . Q10H [facility] Rx#:[id number] Output: Urine 975 1400 Other: Voiding Method Toilet Toilet Urinal Urinal # Voids 1 - Exam Thin, comfortable no distress not using his incentive muscles of breathing. Head exam was generally normal. There was no scleral icterus or corneal arcus. Mucous membranes were moist.Neck was supple and without jugular venous distension, thyromegaly, or carotid bruits. Carotids were easily palpable bilaterally. There was no adenopathy. Lung sounds are diminished bilaterally along with some few scattered expiratory wheezes heard throughout lung levine, crackles in the right lung base. Cardiac exam revealed the PMI to be normally situated and sized. The rhythm was regular and no extrasystoles were noted during several minutes of auscultation. The first and second heart sounds were normal and physiologic splitting of the second heart sound was noted. There were no murmurs, rubs, clicks, or gallops.Abdominal exam revealed normal bowel sounds. The abdomen was soft, non-tender, and without masses, organomegaly, or appreciable enlargement of the abdominal aorta. Examination of the extremities revealed easily palpable radial, femoral and pedal pulses. There was no cyanosis , clubbing or edema. - Labs CBC & Chem 7: 01/08/17 06:52 01/08/17 06:52 Labs: Abnormal Lab Results - Last 24 Hours (Table) 01/07/17 01/07/17 01/07/17 Range/Units 11:22 11:22 11:30 RBC 2.30 L (4.30-5.90) m/uL Hgb 7.9 L D (13.0-17.5) gm/dL Hct 25.1 L (39.0-53.0) % MCV 109.3 H (80.0-100.0) fL MCHC (31.0-37.0) g/dL RDW 17.8 H (11.5-15.5) % Lymphocytes # 0.7 L (1.0-4.8) k/uL Glucose 121 H (74-99) mg/dL POC Glucose (mg/dL) 136 H (75-99) mg/dL 01/07/17 01/07/17 01/08/17 Range/Units 17:15 19:59 06:52 RBC 2.36 L (4.30-5.90) m/uL Hgb 8.0 L (13.0-17.5) gm/dL Hct 26.0 L (39.0-53.0) % MCV 110.3 H (80.0-100.0) fL MCHC 30.8 L (31.0-37.0) g/dL RDW 17.8 H (11.5-15.5) % Lymphocytes # (1.0-4.8) k/uL Glucose (74-99) mg/dL POC Glucose (mg/dL) 153 H 144 H (75-99) mg/dL 01/08/17 01/08/17 Range/Units 06:52 07:14 RBC (4.30-5.90) m/uL Hgb (13.0-17.5) gm/dL Hct (39.0-53.0) % MCV (80.0-100.0) fL MCHC (31.0-37.0) g/dL RDW (11.5-15.5) % Lymphocytes # (1.0-4.8) k/uL Glucose 101 H (74-99) mg/dL POC Glucose (mg/dL) 128 H (75-99) mg/dL Assessment and Plan Plan: Assessment 1 acute COPD exacerbation with secondary shortness of breath. The chest x-ray was reviewed. There is a concern for right upper lobe airspace disease/ consolidation. Nevertheless, the patient was in the hospital back in October with an extensive right upper lobe pneumonia consolidation. In comparison the chest x-ray is improved and there is some probable residual infiltration/scarring of the right upper lobe in the setting of extensive emphysema an upper lobe predominance. 2 recent hospitalization for a right upper lobe pneumonia 3 advanced oxygen-dependent COPD with extensive emphysematous changes bilaterally more so in the upper lobes 4 history of bilateral pneumothoraces requiring chest tube insertion and pleurodesis 5 smoking 6 exertional dyspnea 7 weight loss 8 anemia Plan: The patient was seen and evaluated by Dr. Latham. We will review the chest x- ray and make further recommendations. The patient may be able to be discharged home today on oral antibiotics and prednisone taper. He will continue his home Advair, Spiriva, Singulair and DuoNeb inhalations. He will follow-up in the office with Dr. Latham in 1-2 weeks' time.
[2017-01-08] MEDS: CEFDINIR 300 MG CAP PO SCH (10:28)
[2017-01-08 11:24] LABS: Glucose,Whole Blood 121 mg/dL (75-99)
--- NOTE | 2017-01-08 14:01 | XR ---
EXAMINATION TYPE: XR chest 2V DATE OF EXAM: 01/08/2017 COMPARISON: Prior chest x-ray 01/05/2017, chest CT 10/09/2016 HISTORY: Follow-up pneumonia TECHNIQUE: Frontal and lateral views of the chest are obtained. FINDINGS: Apical scarring in the right is again noted. No evident pneumothorax or pleural effusion. Extensive interstitial and emphysematous changes are present within the lungs. The heart is small. Pu lmonary vascularity and elisabeth not significantly changed. IMPRESSION: Difficult to exclude airspace disease however large amount of scarring is suspected. Int erstitial lung disease is end-stage. Emphysema.
--- NOTE | 2017-01-08 15:38 | P.DS ---
Providers Date of admission: 01/05/17 19:45 Attending physician: Blake Cherry Consults: 01/05/17 19:44 Consult Physician Routine Consulting Provider: Peace Latham Reason/Comments: copd Do you want consulting provider notified?: Yes [facility] Course: This 50-year-old gentleman with a past medical history multiple medical problems was admitted COPD acute exacerbation as well as right upper lobe pneumonia possibly gram-negative. Treated with antibiotics bronchitis and steroids. Improved significantly. Patient is also seen by Dr. Latham and Dr. Salinas. Patient was not thought to be a candidate of for bronchoscopy at this time. Recommended outpatient close follow-up. On exam vitals stable. Cardio S1 and S2 normal. Respirator system few scattered rhonchi and crackles. Persistent more diminished on the right side. Total time taken 35 minutes Final diagnosis 1. COPD acute exacerbation with the right upper pneumonia possibly gram- negative. 2. History of previous pneumonia 3. History and nicotine dependence 4. Protein calorie malnutrition mild to moderate BMI 19 5. History of spontaneous pneumothorax 6. Anxiety depression 7. Anemia microcytic possibly nutritional in origin. Patient Condition at Discharge: Fair Plan - Discharge Summary New Discharge Prescriptions: New predniSONE 10 mg PO DIRECTED #30 tab Continue Tiotropium 18 Mcg/Puff [Spiriva] 1 cap INHALATION RT-DAILY Fluticasone/Salmeterol [Advair 250-50 Diskus] 1 puff INHALATION RT-BID Ipratropium-Albuterol Nebulize [Duoneb 0.5 mg-3 mg/3 ml Soln] 3 ml INHALATION RT-QID #120 neb Montelukast [Singulair] 10 mg PO DAILY HYDROcodone/APAP 10-325MG [[place] 10-325] 1 tab PO TID Ferrous Sulfate [Iron (65 MG Elemental)] 325 mg PO DAILY Varenicline [Chantix] 1 mg PO BID Azithromycin [Zithromax] 250 mg PO MOWEFR Cefdinir [Omnicef] 300 mg PO BID Discharge Medication List Fluticasone/Salmeterol [Advair 250-50 Diskus] 1 puff INHALATION RT-BID 10/09/16 [History] Tiotropium 18 Mcg/Puff [Spiriva] 1 cap INHALATION RT-DAILY 10/09/16 [History] Ipratropium-Albuterol Nebulize [Duoneb 0.5 mg-3 mg/3 ml Soln] 3 ml INHALATION RT -QID #120 neb 10/15/16 [Rx] Azithromycin [Zithromax] 250 mg PO MOWEFR 01/05/17 [History] Cefdinir [Omnicef] 300 mg PO BID 01/05/17 [History] Ferrous Sulfate [Iron (65 MG Elemental)] 325 mg PO DAILY 01/05/17 [History] HYDROcodone/APAP 10-325MG [[place] 10-325] 1 tab PO TID 01/05/17 [History] Montelukast [Singulair] 10 mg PO DAILY 01/05/17 [History] Varenicline [Chantix] 1 mg PO BID 01/05/17 [History] predniSONE 10 mg PO DIRECTED #30 tab 01/08/17 [Rx] Follow up Appointment(s)/Referral(s): Peace Latham MD [STAFF PHYSICIAN] - 01/22/17 1:45 pm Yang Corrigan DO [Primary Care Provider] - 3 Days (Patient to call and schedule follow up appointment. The office is closed for the afternoon for a staff meeting.) Ambulatory/Diagnostic Orders: Complete Blood Count w/diff [LAB.AMB] Time Frame: 3 Days, Location: Determined By Patient Patient Instructions/Handouts: Prednisone (By mouth), COPD (Chronic Obstructive Pulmonary Disease) (DC)
[2017-01-08 16:05] VITALS: BP 108/59; PULSE 104; RESP 16; TEMP 98.1
[2017-01-09] MEDS ORDERED: predniSONE 20 MG TAB PO SCH (09:00)
== END 2017-01-08 14:15 | disposition home or self-care (01) | DRG 190 ==
LOC: EC 18:45 → 5MS5E 19:45
PROVIDERS: ADMIT Hospitalist; ATTEND Hospitalist
DX: J44.0 Chronic obstructive pulmonary disease with (acute) lower respiratory infection (principal); J15.6 Pneumonia due to other Gram-negative bacteria; J96.11 Chronic respiratory failure with hypoxia; E44.0 Moderate protein-calorie malnutrition; Z99.81 Dependence on supplemental oxygen; J44.1 Chronic obstructive pulmonary disease with (acute) exacerbation; D52.0 Dietary folate deficiency anemia; F17.200 Nicotine dependence, unspecified, uncomplicated; N40.0 Benign prostatic hyperplasia without lower urinary tract symptoms; I71.4 Abdominal aortic aneurysm, without rupture; M19.90 Unspecified osteoarthritis, unspecified site; M54.5 Low back pain; F41.9 Anxiety disorder, unspecified; F32.9 Major depressive disorder, single episode, unspecified; Z68.1 Body mass index [BMI] 19.9 or less, adult; Z79.899 Other long term (current) drug therapy; Z87.01 Personal history of pneumonia (recurrent); Z82.49 Family history of ischemic heart disease and other diseases of the circulatory system
CPT/HCPCS: 36415; 71010; 71020; 80048; 80053; 82550; 82553; 83735; 83880; 84484; 85025; 85610; 85730; 93005; 94640; 94644; 94760; 96361; 96365; 96375; 99285

== ENCOUNTER 2017-01-10 13:16 | Observation (INO) | payer MEDICARE ==
[2017-01-10] MEDS ORDERED: IPRATROPIUM-ALBUTEROL 3 ML NEB INHALATION STA (13:47)
[2017-01-10] MEDS ORDERED: SODIUM CHLORIDE 0.9% 500 ML IV STA (13:47)
--- NOTE | 2017-01-10 13:53 | ED ---
General Adult HPI - General Chief complaint: Shortness of Breath Stated complaint: Diff Breathing/Low Hgb Time Seen by Provider: 01/10/17 13:20 Source: patient, RN notes reviewed Mode of arrival: wheelchair Limitations: no limitations - History of Present Illness Initial comments: This is a 51-year-old male who has a past medical history significant for COPD and is dependent upon oxygen. Patient states he also has been told he has low hemoglobin and large red blood cells. Patient states he continues to smoke. Patient comes in today because he short of breath and and went to see his primary doctor today and they sent him in the hospital because hemoglobin was 7.6. Patient. He denies any chest pain palpitations patient denies any fever chills or cough. Patient states she's had a chronic cough and it continues. Patient states she was recently in the hospital for pneumonia. Patient was released from the hospital on Friday patient denies headache patient denies numbness weakness. Patient denies lightheadedness or dizziness. Patient does state his shortness of breath seems of gotten worse over the last couple of days. - Related Data Home Medications Medication Instructions Recorded Confirmed Fluticasone/Salmeterol [Advair 1 puff INHALATION RT-BID 10/09/16 01/10/17 250-50 Diskus] Tiotropium 18 Mcg/Puff [Spiriva] 1 cap INHALATION RT-DAILY 10/09/16 01/10/17 Azithromycin [Zithromax] 250 mg PO MOWEFR 01/05/17 01/10/17 Cefdinir [Omnicef] 300 mg PO BID 01/05/17 01/10/17 Ferrous Sulfate [Iron (65 MG 325 mg PO DAILY 01/05/17 01/10/17 Elemental)] HYDROcodone/APAP 10-325MG [[place] 1 tab PO TID 01/05/17 01/10/17 10-325] Montelukast [Singulair] 10 mg PO DAILY 01/05/17 01/10/17 Varenicline [Chantix] 1 mg PO BID 01/05/17 01/10/17 Previous Rx's Medication Instructions Recorded Ipratropium-Albuterol Nebulize 3 ml INHALATION RT-QID #120 neb 10/15/16 [Duoneb 0.5 mg-3 mg/3 ml Soln] predniSONE 10 mg PO DIRECTED #30 tab 01/08/17 Allergies Allergy/AdvReac Type Severity Reaction Status Date / Time No Known Allergies Allergy Verified 01/10/17 14:07 Review of Systems ROS Statement: Those systems with pertinent positive or pertinent negative responses have been documented in the HPI. ROS Other: All systems not noted in ROS Statement are negative. Past Medical History Past Medical History: COPD, Prostate Disorder Additional Past Medical History / Comment(s): abdominal aortic aneurysm, difficulties with memory, chronic hypoxic respiratory failure, advanced COPD with upper lobe predominance, history of bilateral pneumothoraces at the young age requiring breath or chest tube insertion and pleurodesis. The patient also has BPH and chronic degenerative arthritis and hip pain on the right. Hospitalized for the last week for COPD/ pneumonia discharged 10-17-16. Wears 02 @ 2L. History of Any Multi-Drug Resistant Organisms: None Reported Additional Past Surgical History / Comment(s): spontaneous pneumo thorax (L x1, Rx2) Past Anesthesia/Blood Transfusion Reactions: No Reported Reaction Additional Past Anesthesia/Blood Transfusion Reaction / Comment(s): pt stated he moved here from [place] a year ago. lives [facility] in [facility]-no steps. no outside services received. has home 02 /[address]. no pets. no past service. 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 Past Psychological History: Anxiety, Depression Smoking Status: Current every day smoker Past Alcohol Use History: None Reported Past Drug Use History: None Reported - Past Family History Father History Unknown: Yes Mother Family Medical History: Cancer, Coronary Artery Disease (CAD) Additional Family Medical History / Comment(s): lung cancer, lymphoma. General Exam - General Exam Comments Initial Comments: GENERAL: Patient is well-developed and well-nourished. Patient is nontoxic and well- hydrated and is in mild distress. ENT: Neck is soft and supple. No significant lymphadenopathy is noted. Oropharynx is clear. Moist mucous membranes. Neck has full range of motion without eliciting any pain. EYES: The sclera were anicteric and conjunctiva were pink and moist. Extraocular movements were intact and pupils were equal round and reactive to light. Eyelids were unremarkable. PULMONARY: Patient has some crackles right lung base. But I mean CARDIOVASCULAR: There is a regular rate and rhythm without any murmurs gallops or rubs. ABDOMEN: Soft and nontender with normal bowel sounds. No palpable organomegaly was noted. There is no palpable pulsatile mass. SKIN: Skin is clear with no lesions or rashes and otherwise unremarkable. NEUROLOGIC: Patient is alert and oriented x3. Cranial nerves II through XII are grossly intact. Motor and sensory are also intact. Normal speech, volume and content. Symmetrical smile. MUSCULOSKELETAL: Normal extremities with adequate strength and full range of motion. No lower extremity swelling or edema. No calf tenderness. LYMPHATICS: No significant lymphadenopathy is noted PSYCHIATRIC: Normal psychiatric evaluation. Normal interpersonal interactions appears functionally intact in deals appropriately with others. No signs of depression. Limitations: no limitations Course Vital Signs 01/10/17 01/10/17 01/10/17 13:19 14:13 14:20 Temperature 97.4 F L Pulse Rate 111 H 89 84 Respiratory 30 H 22 Rate Blood Pressure 113/60 103/64 O2 Sat by Pulse 98 100 Oximetry 01/10/17 01/10/17 14:26 15:00 Temperature Pulse Rate 93 100 Respiratory 20 Rate Blood Pressure 93/63 O2 Sat by Pulse 97 Oximetry Medical Decision Making - Medical Decision Making EKG shows normal sinus rhythm at 96 bpm HI interval is 146 dresses 76 QT interval 314 QTC is 396. Patient's EKG shows no ST segment elevation or depression or T wave abnormalities are noted. - Lab Data Result diagrams: 01/10/17 15:20 01/10/17 13:31 Lab Results 01/10/17 01/10/17 01/10/17 Range/Units 13:31 13:31 13:31 WBC 7.7 (3.8-10.6) k/uL RBC 3.11 L (4.30-5.90) m/uL Hgb 11.0 L D (13.0-17.5) gm/dL Hct 33.8 L (39.0-53.0) % MCV 108.6 H (80.0-100.0) fL MCH 35.2 H (25.0-35.0) pg MCHC 32.5 (31.0-37.0) g/dL RDW 18.0 H (11.5-15.5) % Plt Count 328 (150-450) k/uL Neutrophils % 85 % Lymphocytes % 9 % Monocytes % 4 % Eosinophils % 1 % Basophils % 0 % Neutrophils # 6.5 (1.3-7.7) k/uL Lymphocytes # 0.7 L (1.0-4.8) k/uL Monocytes # 0.3 (0-1.0) k/uL Eosinophils # 0.0 (0-0.7) k/uL Basophils # 0.0 (0-0.2) k/uL Manual Slide Review Performed Polychromasia Hypochromasia Slight Poikilocytosis Poikilocytosis (manual Present Anisocytosis Slight Macrocytosis Marked PT (9.0-12.0) sec INR (<1.2) APTT (22.0-30.0) sec Sodium 137 (137-145) mmol/L Potassium 4.2 (3.5-5.1) mmol/L Chloride 99 (98-107) mmol/L Carbon Dioxide 28 (22-30) mmol/L Anion Gap 10 mmol/L BUN 24 H (9-20) mg/dL Creatinine 0.73 (0.66-1.25) mg/dL Est GFR (MDRD) Af Amer >60 (>60 ml/min/1.73 sqM) Est GFR (MDRD) Non-Af >60 (>60 ml/min/1.73 sqM) Glucose 119 H (74-99) mg/dL Calcium 9.3 (8.4-10.2) mg/dL Magnesium 2.1 (1.6-2.3) mg/dL Total Bilirubin 0.8 (0.2-1.3) mg/dL AST 26 (17-59) U/L ALT 41 (21-72) U/L Alkaline Phosphatase 106 (38-126) U/L Total Creatine Kinase 21 L (55-170) U/L CK-MB (CK-2) 0.3 (0.0-2.4) ng/mL CK-MB (CK-2) Rel Index 1.4 Troponin I <0.012 (0.000-0.034) ng/mL Total Protein 7.9 (6.3-8.2) g/dL Albumin 4.1 (3.5-5.0) g/dL 01/10/17 01/10/17 Range/Units 13:31 15:20 WBC 5.9 (3.8-10.6) k/uL RBC 2.77 L (4.30-5.90) m/uL Hgb 9.9 L (13.0-17.5) gm/dL Hct 29.8 L (39.0-53.0) % MCV 107.8 H (80.0-100.0) fL MCH 35.7 H (25.0-35.0) pg MCHC 33.1 (31.0-37.0) g/dL RDW 18.1 H (11.5-15.5) % Plt Count 273 (150-450) k/uL Neutrophils % 79 % Lymphocytes % 16 % Monocytes % 3 % Eosinophils % 1 % Basophils % 0 % Neutrophils # 4.6 (1.3-7.7) k/uL Lymphocytes # 0.9 L (1.0-4.8) k/uL Monocytes # 0.2 (0-1.0) k/uL Eosinophils # 0.0 (0-0.7) k/uL Basophils # 0.0 (0-0.2) k/uL Manual Slide Review Polychromasia Present Hypochromasia Slight Poikilocytosis Slight Poikilocytosis (manual Anisocytosis Slight Macrocytosis Marked PT 10.1 (9.0-12.0) sec INR 1.0 (<1.2) APTT 22.3 (22.0-30.0) sec Sodium (137-145) mmol/L Potassium (3.5-5.1) mmol/L Chloride (98-107) mmol/L Carbon Dioxide (22-30) mmol/L Anion Gap mmol/L BUN (9-20) mg/dL Creatinine (0.66-1.25) mg/dL Est GFR (MDRD) Af Amer (>60 ml/min/1.73 sqM) Est GFR (MDRD) Non-Af (>60 ml/min/1.73 sqM) Glucose (74-99) mg/dL Calcium (8.4-10.2) mg/dL Magnesium (1.6-2.3) mg/dL Total Bilirubin (0.2-1.3) mg/dL AST (17-59) U/L ALT (21-72) U/L Alkaline Phosphatase (38-126) U/L Total Creatine Kinase (55-170) U/L CK-MB (CK-2) (0.0-2.4) ng/mL CK-MB (CK-2) Rel Index Troponin I (0.000-0.034) ng/mL Total Protein (6.3-8.2) g/dL Albumin (3.5-5.0) g/dL Disposition Clinical Impression: Dyspnea, Anemia Disposition: ADMITTED IP TO THIS HOSP Referrals: Yang Corrigan DO [Primary Care Provider] - 1-2 days Time of Disposition: 16:39
[2017-01-10 14:11] LABS: ALT 41 U/L (21-72); AST 26 U/L (17-59); Alkaline Phosphatase 106 U/L (38-126); Anion Gap 10 mmol/L; Blood Urea Nitrogen 24 mg/dL (9-20); Calcium 9.3 mg/dL (8.4-10.2); Carbon Dioxide 28 mmol/L (22-30); Chloride 99 mmol/L (98-107); Glucose 119 mg/dL (74-99); Magnesium 2.1 mg/dL (1.6-2.3); Non-African American GFR(MDRD) >60 (>60 ml/min/1.73 sqM); Potassium 4.2 mmol/L (3.5-5.1); Sodium 137 mmol/L (137-145); Total Bilirubin 0.8 mg/dL (0.2-1.3); Total Protein 7.9 g/dL (6.3-8.2)
--- NOTE | 2017-01-10 14:11 | XR ---
EXAMINATION TYPE: XR chest 2V DATE OF EXAM: 01/10/2017 COMPARISON: 01/08/2017 HISTORY: Shortness of breath TECHNIQUE: Frontal and lateral views of the chest are obtained. FINDINGS: Scattered senescent parenchymal changes noted. Hyperinflation compatible with COPD. Underlying pulmon david fibrosis. Right upper lobe infiltrate is difficult to exclude. Heart size is stable. Mediastinal structures are stable and grossly unremarkable. No evidence for hilar prominence. Degenerative changes dorsal spine. IMPRESSION: 1. Interstitial lung disease with COPD and upper lobe scarring. I cannot exclude right upper lobe inf iltrate although this is likely chronic in nature. Correlate clinically.
[2017-01-10 14:18] LABS: Anisocytosis Slight; Basophils % (A) 0 %; CH 34.4; CHCM 31.8; Eosinophils % (A) 1 %; HCT 33.8 % (39.0-53.0); HDW 3.27; Hypochromasia Slight; Luc # (Auto) 0.13; Luc % (Auto) 2; Lymphocytes # (A) 0.7 k/uL (1.0-4.8); Lymphocytes % (A) 9 %; MCH 35.2 pg (25.0-35.0); MCHC 32.5 g/dL (31.0-37.0); MCV 108.6 fL (80.0-100.0); Macrocytosis Marked; Mean Platelet Volume 7.3; Monocytes # (A) 0.3 k/uL (0-1.0); Monocytes % (A) 4 %; Neutrophils # (A) 6.5 k/uL (1.3-7.7); Neutrophils % (A) 85 %; RBC 3.11 m/uL (4.30-5.90); WBC 7.7 k/uL (3.8-10.6); WBC (Perox) 7.88
[2017-01-10 14:19] LABS: Partial Thromboplastin Time 22.3 sec (22.0-30.0); Prothrombin Time 10.1 sec (9.0-12.0)
[2017-01-10 14:36] LABS: Manual Review Performed
[2017-01-10 14:43] LABS: Creatine Kinase 21 U/L (55-170)
[2017-01-10 14:56] LABS: Creatine Kinase MB 0.3 ng/mL (0.0-2.4); Troponin I <0.012 ng/mL (0.000-0.034)
[2017-01-10] MEDS ORDERED: KETOROLAC 60 MG/2 ML VIAL IVP STA (15:11)
[2017-01-10 15:43] LABS: Anisocytosis Slight; Basophils % (A) 0 %; CH 34.3; CHCM 31.9; Eosinophils % (A) 1 %; HCT 29.8 % (39.0-53.0); HDW 3.49; HGB 9.9 gm/dL (13.0-17.5); Hypochromasia Slight; Luc # (Auto) 0.08; Luc % (Auto) 1; Lymphocytes # (A) 0.9 k/uL (1.0-4.8); Lymphocytes % (A) 16 %; MCH 35.7 pg (25.0-35.0); MCHC 33.1 g/dL (31.0-37.0); MCV 107.8 fL (80.0-100.0); Macrocytosis Marked; Monocytes # (A) 0.2 k/uL (0-1.0); Monocytes % (A) 3 %; Neutrophils # (A) 4.6 k/uL (1.3-7.7); Neutrophils % (A) 79 %; Poikilocytosis Slight; RBC 2.77 m/uL (4.30-5.90); RDW 18.1 % (11.5-15.5); WBC 5.9 k/uL (3.8-10.6); WBC (Perox) 6.23
[2017-01-10 16:08] LABS: Polychromasia Present
[2017-01-10] MEDS ORDERED: SODIUM CHLORIDE 0.9% 1,000 ML IV ONE (16:49)
[2017-01-10] MEDS ORDERED: IPRATROPIUM-ALBUTEROL 3 ML NEB INHALATION PRN (18:58)
[2017-01-10] MEDS: IPRATROPIUM-ALBUTEROL 3 ML NEB INHALATION SCH (20:41)
[2017-01-10] MEDS: traMADol 50 MG TAB PO PRN (22:03)
[2017-01-10] MEDS: CEFDINIR 300 MG CAP PO SCH (22:05)
[2017-01-10] MEDS: VARENICLINE 1 MG TAB PO SCH (22:05)
[2017-01-11 00:01] LABS: Glucose,Whole Blood 99 mg/dL (75-99)
[2017-01-11] MEDS: INSULIN LISPRO (humaLOG) 300 UNIT/3 ML VIAL SQ SCH ×3 (00:29→12:38)
[2017-01-11] MEDS: HYDROcodone/APAP 10-325MG 1 EACH TAB PO PRN ×2 (02:07→10:05)
[2017-01-11 05:48] LABS: Anisocytosis Slight; Basophils % (A) 0 %; CH 34.9; CHCM 33.4; Eosinophils # (A) 0.1 k/uL (0-0.7); Eosinophils % (A) 1 %; HCT 29.4 % (39.0-53.0); HDW 3.68; HGB 9.3 gm/dL (13.0-17.5); Luc # (Auto) 0.14; Luc % (Auto) 3; Lymphocytes % (A) 42 %; MCH 33.2 pg (25.0-35.0); MCHC 31.6 g/dL (31.0-37.0); MCV 105.2 fL (80.0-100.0); Macrocytosis Marked; Mean Platelet Volume 7.9; Monocytes # (A) 0.3 k/uL (0-1.0); Monocytes % (A) 5 %; Neutrophils # (A) 2.3 k/uL (1.3-7.7); Neutrophils % (A) 48 %; Poikilocytosis Slight; RDW 19.6 % (11.5-15.5); WBC 4.9 k/uL (3.8-10.6); WBC (Perox) 5.14
[2017-01-11] MEDS: IPRATROPIUM-ALBUTEROL 3 ML NEB INHALATION SCH ×2 (07:31→12:25)
[2017-01-11 07:45] LABS: Glucose,Whole Blood 85 mg/dL (75-99)
[2017-01-11] MEDS ORDERED: TIOTROPIUM 18 MCG/PUFF INHALER INHALATION SCH (08:00)
[2017-01-11 08:05] VITALS: BP 94/59; RESP 22; TEMP 97.1
[2017-01-11] MEDS: CEFDINIR 300 MG CAP PO SCH (08:12)
[2017-01-11] MEDS: VARENICLINE 1 MG TAB PO SCH (08:12)
[2017-01-11] MEDS: traMADol 50 MG TAB PO PRN (08:18)
--- NOTE | 2017-01-11 08:58 | P.CONS ---
History of Present Illness - Reason for Consult Consult date: 01/11/17 Macrocytic anemia - History of Present Illness The patient is a 51-year-old gentleman, with multiple medical problems. He is advanced COPD and is oxygen dependent. Since at least 10/19, the patient has had low hemoglobin, usually in the 8-9 range with the high MCV in the 100-110 range. He was referred to Dr. French and seen by him in the office late last month. Workup was ordered, and the patient is supposed to see him back , I believe next week. The patient was recently admitted for a pneumonia, and discharged on antibiotics for 3 days ago. He went in to see his PCP, and was told that his hemoglobin was 7.6. He therefore came into the emergency room. He received a unit of blood, as he was apparently symptomatic. Her repeat hemoglobin came back as 11 with the subsequent values in the 9 range. Consult was placed for further evaluation and recommendations. She denies any obvious bleeding. There is no history of any alcohol use or liver disease Review of Systems Constitutional: Reports weakness Eyes: denies blurred vision, denies pain Ears: deny: decreased hearing, ear discharge, earache, tinnitus Ears, nose, mouth and throat: Denies headache, Denies sore throat Cardiovascular: Reports shortness of breath Respiratory: Reports as per HPI (Advanced COPD, oxygen dependent), Reports cough with sputum, Reports dyspnea, Reports home oxygen Gastrointestinal: Denies abdominal pain, Denies diarrhea, Denies nausea, Denies vomiting Genitourinary: Reports as per HPI (No specific complaints) Musculoskeletal: Reports muscle weakness Integumentary: Denies pruritus, Denies rash Neurological: Reports weakness Psychiatric: Denies anxiety, Denies depression Endocrine: Denies fatigue, Denies weight change Hematologic/Lymphatic: Reports as per HPI Past Medical History Past Medical History: COPD, Prostate Disorder Additional Past Medical History / Comment(s): abdominal aortic aneurysm, difficulties with memory history of bilateral pneumothoraces at the young age requiring breath or chest tube insertion and pleurodesis. The patient also has BPH and chronic degenerative arthritis and hip pain on the right. home 02 - 2L History of Any Multi-Drug Resistant Organisms: None Reported Additional Past Surgical History / Comment(s): spontaneous pneumo thorax (L x1, Rx2) Past Anesthesia/Blood Transfusion Reactions: No Reported Reaction Additional Past Anesthesia/Blood Transfusion Reaction / Comm: pt stated he moved here from [place] a year ago. lives alone in [facility]-no steps. no outside services received. has home /[facility]. no pets. no past service. 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 Past Psychological History: Anxiety, Depression Additional Psychological History / Comment(s): .(continues to smoke 1 ppd). As noted continues to smoke despite his oxygen-dependent COPD. No experience. No international travel. No animal exposures. Is not and has no children Smoking Status: Current every day smoker Past Alcohol Use History: None Reported Additional Past Alcohol Use History / Comment(s): States trying to quit smoking. Past Drug Use History: None Reported - Past Family History Father History Unknown: Yes Mother Family Medical History: Cancer, Coronary Artery Disease (CAD) Additional Family Medical History / Comment(s): lung cancer, lymphoma. Medications and Allergies Home Medications Medication Instructions Recorded Confirmed Type Fluticasone/Salmeterol [Advair 1 puff INHALATION RT-BID 10/09/16 01/10/17 History 250-50 Diskus] Tiotropium 18 Mcg/Puff [Spiriva] 1 cap INHALATION RT-DAILY 10/09/16 01/10/17 History Ipratropium-Albuterol Nebulize 3 ml INHALATION RT-QID #120 neb 10/15/16 Rx [Duoneb 0.5 mg-3 mg/3 ml Soln] Azithromycin [Zithromax] 250 mg PO MOWEFR 01/05/17 01/10/17 History Cefdinir [Omnicef] 300 mg PO BID 01/05/17 01/10/17 History Ferrous Sulfate [Iron (65 MG 325 mg PO DAILY 01/05/17 01/10/17 History Elemental)] HYDROcodone/APAP 10-325MG [[place] 1 tab PO TID 01/05/17 01/10/17 History 10-325] Montelukast [Singulair] 10 mg PO DAILY 01/05/17 01/10/17 History Varenicline [Chantix] 1 mg PO BID 01/05/17 01/10/17 History predniSONE 10 mg PO DIRECTED #30 tab 01/08/17 01/10/17 Rx Allergies Allergy/AdvReac Type Severity Reaction Status Date / Time No Known Allergies Allergy Verified 01/10/17 14:07 Physical Exam Vitals: Vital Signs Temp Pulse Pulse Resp BP BP Pulse Ox 01/11/17 07:46 80 01/11/17 07:31 76 01/11/17 07:00 97.1 F L 86 22 94/59 98 01/11/17 00:15 97.5 F L 80 18 103/62 97 01/10/17 23:00 97.3 F L 82 20 100/59 98 01/10/17 20:52 84 01/10/17 20:47 97.9 F 85 16 105/74 01/10/17 20:41 80 01/10/17 20:17 97.7 F 76 16 01/10/17 20:13 97.4 F L 75 16 110/68 01/10/17 20:02 97.2 F L 76 18 102/63 01/10/17 18:01 97.0 F L 89 18 94/44 96 01/10/17 17:50 97 F L 88 20 98/63 98 01/10/17 16:00 93 20 105/62 98 01/10/17 15:00 100 20 93/63 97 01/10/17 14:26 93 01/10/17 14:20 84 22 103/64 100 01/10/17 14:13 89 01/10/17 13:19 97.4 F L 111 H 30 H 113/60 98 Intake and Output 01/10/17 01/11/17 01/11/17 22:59 06:59 14:59 Intake Total 600 510 Balance 600 510 Intake: Oral 600 200 Blood Product 0 310 Rc Pheresis As-3 Unit 0 310 [id number] Other: Voiding Method Toilet Toilet Toilet # Voids 1 1 - Constitutional General appearance: no acute distress - EENT Eyes: EOMI, PERRLA ENT: hearing grossly normal, normal oropharynx - Neck Neck: no lymphadenopathy - Respiratory Respiratory: right: rales, bilateral: diminished - Cardiovascular Rhythm: regular Heart sounds: normal: S1, S2 - Integumentary Integumentary: normal - Neurologic Neurologic: CNII-XII intact - Musculoskeletal Musculoskeletal: generalized weakness, strength equal bilaterally - Psychiatric Psychiatric: A&O x's 3, appropriate affect Results CBC & Chem 7: 01/11/17 05:25 01/10/17 13:31 Labs: Abnormal Lab Results - Last 24 Hours (Table) 01/10/17 01/10/17 01/10/17 Range/Units 13:31 13:31 13:31 RBC 3.11 L (4.30-5.90) m/uL Hgb 11.0 L D (13.0-17.5) gm/dL Hct 33.8 L (39.0-53.0) % MCV 108.6 H (80.0-100.0) fL MCH 35.2 H (25.0-35.0) pg RDW 18.0 H (11.5-15.5) % Lymphocytes # 0.7 L (1.0-4.8) k/uL BUN 24 H (9-20) mg/dL Glucose 119 H (74-99) mg/dL Total Creatine Kinase 21 L (55-170) U/L Crossmatch 01/10/17 01/10/17 01/11/17 Range/Units 13:31 15:20 05:25 RBC 2.77 L 2.80 L (4.30-5.90) m/uL Hgb 9.9 L 9.3 L (13.0-17.5) gm/dL Hct 29.8 L 29.4 L (39.0-53.0) % MCV 107.8 H 105.2 H (80.0-100.0) fL MCH 35.7 H (25.0-35.0) pg RDW 18.1 H 19.6 H (11.5-15.5) % Lymphocytes # 0.9 L (1.0-4.8) k/uL BUN (9-20) mg/dL Glucose (74-99) mg/dL Total Creatine Kinase (55-170) U/L Crossmatch See Detail Chest x-ray: report reviewed Assessment and Plan (1) Anemia Narrative/Plan: This is microcytic in nature, and have been present since at least 10/19 according to review of his labs in the EMR. In fact labs about a year ago had also shown a mild anemia with hemoglobin in the 11 range. The patient denies any history of alcohol use or liver disease. He has already been seen by Dr. French in the outpatient setting, and workup initiated. Those results are not available to me at this time, but will be reviewed. Patient already has follow- up scheduled with Dr. French in the office. The patient's CBC revealed of blood yesterday, for an outpatient hemoglobin value of 7.6. No hemoglobin was above 7, apparently was symptomatic. Its not clear if his shortness of breath was really much worse than his baseline, based on my evaluation. Posttransfusion hemoglobin of 11 was noted and subsequent values in the 9 range. Assuming that the hemoglobin was 7.6, unit of blood would raise it into the 8-9 range. Therefore the hemoglobin of 11 is most likely an error. As hemoglobin is stable in his baseline range, the patient can be discharged home from my standpoint, whenever felt to be appropriate by the admitting service. Since workup has already been initiated in the outpatient setting, additional labs are not recommended at this time from my standpoint Status: Acute (2) Acute and chronic respiratory failure Narrative/Plan: The patient has known advanced COPD, and had a recent diagnosis of pneumonia. This morning, he feels that his breathing is at his baseline. He is continuing on by mouth antibiotics Status: Acute
[2017-01-11] MEDS ORDERED: MONTELUKAST 10 MG TAB PO SCH (09:00)
[2017-01-11] MEDS ORDERED: predniSONE 20 MG TAB PO SCH (09:00)
[2017-01-11 11:53] LABS: Glucose,Whole Blood 130 mg/dL (75-99)
[2017-01-11] MEDS ORDERED: FERROUS SULFATE 325 MG TAB PO SCH (12:00)
--- NOTE | 2017-01-11 12:03 | HP ---
HISTORY AND PHYSICAL DATE OF ADMISSION: 01/10/17 CHIEF COMPLAINT: Weakness. HISTORY OF PRESENT ILLNESS: A 50-year-old gentleman with a past medical history of multiple medical problems , including COPD, pneumonia, history of prostate disorder, history of anxiety, depression being followed by Dr. Corrigan in the outpatient setting was recently admitted with COPD exacerbation and aspiration pneumonia. Patient improved significantly. Patient went home. The patient apparently had complaints of shortness of breath and patient had hemoglobin_7.6, 8 during the recent admission. The patient was sent to [facility] for evaluation treatment. Further hemoglobin elevation showed 11 and 10. There is no history of fever, rigors or chills. No headache, loss of consciousness or seizures. Chest x-ray was also repeated today which showed upper lobe scarring and interstitial lung disease with not much change. PAST MEDICAL HISTORY: 1. COPD. 2. History of prostate disorder. 3. Abdominal aortic aneurysm. 4. Anxiety/depression. MEDICATIONS: Prior to admission include: 1. Prednisone 10 mg tapering dose. 2. Chantix 1 mg p.o. b.i.d. 3. Spiriva 1 puff daily. 4. Singular 10 mg daily. 5. DuoNeb q.i.d. and p.r.n. 6. [place] 1 tab p.o. t.i.d. 7. Advair 250/50 1 puff b.i.d. 8. Iron 320 mg p.o. daily. 10.Zithromax 250 mg Friday, Friday and Friday. ALLERGIES: None. FAMILY HISTORY: History of cancer, coronary artery disease, lung cancer and lymphoma. SOCIAL HISTORY: History of smoking. No history of alcohol intake. REVIEW OF SYSTEMS: ENT: No diminished vision. No diminished hearing. Cardiovascular: No angina or palpitations. Respiratory: As mentioned earlier. GI: As mentioned earlier. : No dysuria or dysuria. Nervous systems: No numbness or weakness. Allergy/ Immunology: No history of asthma or hayfever. Musculoskeletal: As mentioned earlier. Hematology/Oncology: No history of anemia. Endocrine: No history of diabetes or hypothyroidism. Constitutional: As mentioned earlier. Dermatology: Negative. Rheumatology: Negative. Psychiatric: As mentioned earlier. PHYSICAL EXAMINATION: The patient is alert and oriented times three. Pulse 76, blood pressure 103/60, respiration 18, temperature 97.8, pulse ox 97% on 2 L. HEENT: Conjunctivae normal. Conjunctivae pale. NECK: No jugular venous distention. CARDIOVASCULAR: S1, S2. RESPIRATORY: Breath sounds diminished in the bases. A few scattered rhonchi and crackles. Expiratory wheezing also present. ABDOMEN: Soft. Nontender. No mass palpable. LEGS: No edema. No swelling. No cyanosis. Nervous system: Higher functions as mentioned earlier. Moves all four limbs. No focal motor or sensory deficits. Lymphatics: No lymph nodes palpable in the neck, axillae or groin. Skin: No ulcer, rash or bleeding. LAB STUDIES: WBC 5.8, hemoglobin 9.9. Otherwise, as mentioned earlier. ASSESSMENT: 1. Symptomatic anemia leading to significant shortness of breath and weakness. 2. Chronic obstructive pulmonary disease acute exacerbation. 3. History of recent right lower lobe pneumonia. 4. History of nicotine dependence. 5. History of spontaneous pneumothorax. 6. Anxiety and depression. RECOMMENDATIONS AND DISCUSSION: Recommend to continue current management. Continue symptomatic treatment. Recommend 1 unit transfusion. Monitor closely. Continue bronchodilators. Continues the rest of the medications. Otherwise continue the antibiotics and we will recommend evaluation by Dr. Latham. Guarded prognosis. Further recommendations to follow. Again please note, the transfusions for symptomatic anemia. The fluctuating hemoglobin is slightly the case. Please refer to the previous hemoglobin values which went up to 7.4, clinically this transfusion is indicated. FIDELIAL / IJN: [id number] / MTDD
[2017-01-11 12:28] VITALS: PULSE 80
--- NOTE | 2017-01-11 13:24 | P.CNPUL ---
History of Present Illness Consult date: 01/11/17 Requesting physician: Blake Cherry Reason for consult: dyspnea Chief complaint: Right lower chest discomfort, shortness of breath. History of present illness: This is a very pleasant 51-year-old gentleman who follows with Dr. shukri de oliveira as his primary care physician. He has a history of abdominal aortic aneurysm, benign prosthetic hypertrophy, generalized degenerative arthritis and anemia. He also has a history of severe advanced oxygen-dependent chronic obstructive pulmonary disease with upper lobe predominance. He has a history of bilateral pneumothoraces at the young age requiring chest tube insertions with subsequent pleurodesis. He was recently here for a COPD exacerbation and right upper lobe airspace disease/consolidation. He was treated and subsequently discharged to home on 01/08/2017. He follows with Dr. Latham in our office. He presented here on 01/10/2017 with recurrent right lower chest discomfort and shortness of breath, he had seen his primary care provider who found his hemoglobin to be 7.6 and referred him to the emergency room. He has received 1 unit of packed red blood cells. He has been under investigation for his anemia by Dr. Merino. He is noted to have low hemoglobin and high MCVs. His chest x-ray continues to show interstitial lung disease with COPD and upper lobe scarring. Right upper lobe infiltrate cannot be excluded but some of this is chronic in nature. He is seen today in consultation. He states the right-sided chest discomfort resolved shortly after receiving a unit of packed red blood cells. He feels comfortable this morning and his breathing is back to his baseline. He is maintaining good O2 saturations in the upper 90s on 2 L/m per nasal cannula. He 's been afebrile. Hemodynamically stable. Review of Systems 14 point review of system was conducted. All negative other than as mentioned in the HPI. Past Medical History Past Medical History: COPD, Prostate Disorder Additional Past Medical History / Comment(s): abdominal aortic aneurysm, difficulties with memory history of bilateral pneumothoraces at the young age requiring breath or chest tube insertion and pleurodesis. The patient also has BPH and chronic degenerative arthritis and hip pain on the right. home 02 - 2L History of Any Multi-Drug Resistant Organisms: None Reported Additional Past Surgical History / Comment(s): spontaneous pneumo thorax (L x1, Rx2) Past Anesthesia/Blood Transfusion Reactions: No Reported Reaction Additional Past Anesthesia/Blood Transfusion Reaction / Comment(s): pt stated he moved here from [place] a year ago. lives alone in apt-no steps. no outside services received. has home /[facility]. no pets. no past service. 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 Past Psychological History: Anxiety, Depression Additional Psychological History / Comment(s): .(continues to smoke 1 ppd). As noted continues to smoke despite his oxygen-dependent COPD. No experience. No international travel. No animal exposures. Is not and has no children Smoking Status: Current every day smoker Past Alcohol Use History: None Reported Additional Past Alcohol Use History / Comment(s): States trying to quit smoking. Past Drug Use History: None Reported - Past Family History Father History Unknown: Yes Mother Family Medical History: Cancer, Coronary Artery Disease (CAD) Additional Family Medical History / Comment(s): lung cancer, lymphoma. Medications and Allergies Home Medications Medication Instructions Recorded Confirmed Type Fluticasone/Salmeterol [Advair 1 puff INHALATION RT-BID 10/09/16 01/10/17 History 250-50 Diskus] Tiotropium 18 Mcg/Puff [Spiriva] 1 cap INHALATION RT-DAILY 10/09/16 01/10/17 History Ipratropium-Albuterol Nebulize 3 ml INHALATION RT-QID #120 neb 10/15/16 Rx [Duoneb 0.5 mg-3 mg/3 ml Soln] Azithromycin [Zithromax] 250 mg PO MOWEFR 01/05/17 01/10/17 History Cefdinir [Omnicef] 300 mg PO BID 01/05/17 01/10/17 History Ferrous Sulfate [Iron (65 MG 325 mg PO DAILY 01/05/17 01/10/17 History Elemental)] HYDROcodone/APAP 10-325MG [Pep 1 tab PO TID 01/05/17 01/10/17 History 10-325] Montelukast [Singulair] 10 mg PO DAILY 01/05/17 01/10/17 History Varenicline [Chantix] 1 mg PO BID 01/05/17 01/10/17 History predniSONE 10 mg PO DIRECTED #30 tab 01/08/17 01/10/17 Rx Allergies Allergy/AdvReac Type Severity Reaction Status Date / Time No Known Allergies Allergy Verified 01/10/17 14:07 Physical Exam Vitals: Vital Signs Temp Pulse Pulse Resp BP BP Pulse Ox 01/11/17 12:25 80 01/11/17 07:46 80 01/11/17 07:31 76 01/11/17 07:00 97.1 F L 86 22 94/59 98 01/11/17 00:15 97.5 F L 80 18 103/62 97 01/10/17 23:00 97.3 F L 82 20 100/59 98 01/10/17 20:52 84 01/10/17 20:47 97.9 F 85 16 105/74 01/10/17 20:41 80 01/10/17 20:17 97.7 F 76 16 01/10/17 20:13 97.4 F L 75 16 110/68 01/10/17 20:02 97.2 F L 76 18 102/63 01/10/17 18:01 97.0 F L 89 18 94/44 96 01/10/17 17:50 97 F L 88 20 98/63 98 01/10/17 16:00 93 20 105/62 98 01/10/17 15:00 100 20 93/63 97 01/10/17 14:26 93 01/10/17 14:20 84 22 103/64 100 01/10/17 14:13 89 01/10/17 13:19 97.4 F L 111 H 30 H 113/60 98 Intake and Output 01/10/17 01/11/17 01/11/17 22:59 06:59 14:59 Intake Total 600 510 320 Output Total 300 Balance 600 510 20 Intake: Oral 600 200 320 Blood Product 0 310 Rc Pheresis As-3 Unit 0 310 [id number] Output: Urine 300 Other: Voiding Method Toilet Toilet Toilet # Voids 1 1 1 GENERAL EXAM: Pale. Alert, comfortable in no apparent distress. HEAD: Normocephalic. EYES: Normal reaction of pupils, equal size. NOSE: Clear with pink turbinates. THROAT: No erythema or exudates. NECK: No masses, no JVD. CHEST: No chest wall deformity. LUNGS: Equal air entry with no crackles, wheeze, rhonchi or dullness. Diminished. CVS: S1 and S2 normal with no audible murmurs, regular rhythm. ABDOMEN: No hepatosplenomegaly, normal bowel sounds, no guarding or rigidity. SPINE: No scoliosis or deformity SKIN: No rashes CENTRAL NERVOUS SYSTEM: No focal deficits, tone is normal in all 4 extremities. Extremities: There is no peripheral edema. No clubbing, cyanosis. Peripheral pulses are intact. Results - Laboratory Findings CBC and BMP: 01/11/17 05:25 01/10/17 13:31 PT/INR, D-dimer PT 10.1 sec (9.0-12.0) 01/10/17 13:31 INR 1.0 (<1.2) 01/10/17 13:31 Abnormal lab findings: Abnormal Labs 01/10/17 01/10/17 01/10/17 13:31 13:31 13:31 RBC 3.11 L Hgb 11.0 L D Hct 33.8 L MCV 108.6 H MCH 35.2 H RDW 18.0 H Lymphocytes # 0.7 L BUN 24 H Glucose 119 H POC Glucose (mg/dL) Total Creatine Kinase 21 L Crossmatch 01/10/17 01/10/17 01/11/17 13:31 15:20 05:25 RBC 2.77 L 2.80 L Hgb 9.9 L 9.3 L Hct 29.8 L 29.4 L MCV 107.8 H 105.2 H MCH 35.7 H RDW 18.1 H 19.6 H Lymphocytes # 0.9 L BUN Glucose POC Glucose (mg/dL) Total Creatine Kinase Crossmatch See Detail 01/11/17 11:48 RBC Hgb Hct MCV MCH RDW Lymphocytes # BUN Glucose POC Glucose (mg/dL) 130 H Total Creatine Kinase Crossmatch - Diagnostic Findings Chest x-ray: image reviewed Assessment and Plan Plan: Impression: #1 Microcytic anemia of unclear etiology, currently being worked up by hematology. He is status post 1 unit of packed red blood cells this admission. #2 Severe oxygen dependent chronic obstructive pulmonary disease, currently inactive and stable. He remains on a prednisone taper from recent admission. #3 Right upper lobe airspace disease with some chronicity difficult to exclude acute infiltrate. #4 Chronic tobacco dependence. #5 Benign prostatic hypertrophy. #6 Chronic degenerative arthritis. Plan: The patient was seen and evaluated by Dr. Latham. His chest x-ray and labs were reviewed. The patient is stable from the pulmonary standpoint. He is actually back to his baseline from previous admission. We'll continue with prednisone taper. Continue with his updraft treatments. He remains on antibiotics in the form of Omnicef and Zithromax. He is again educated regarding a complete smoking cessation. He is currently on Chantix. We'll continue to follow make further recommendations based on his clinical status. Time with Patient: Greater than 30
--- NOTE | 2017-01-11 18:15 | P.DS ---
Providers Date of admission: 01/10/17 16:49 Attending physician: Blake Cherry Consults: 01/10/17 16:49 Consult Physician Urgent Consulting Provider: Jamey French Consult Reason/Comments: Anemia Do you want consulting provider notified?: Yes 01/10/17 20:22 Consult Physician Routine Consulting Provider: Peace Latham Reason/Comments: copd Do you want consulting provider notified?: Yes Primary care physician: [facility] Course: This 51-year-old gentleman was admitted with symptomatic anemia with the shortness of breath and weakness. Patient also had a COPD history. Patient was recently admitted with a COPD and pneumonia. Improved significantly. Dr. Latham saw the patient during the hospitalization. The hemoglobin was found to be fluctuating but clinically the patient is symptomatic and looking pale and I have recommended 1 unit transfusion for symptomatic improvement of anemia. Today hemoglobin is improved and the patient is also feeling much better as well as his shortness of breath is concerned. Patient be discharged home after clearance from Dr. Latham. Please refer to that he fluctuating hemoglobin over the past several months in the chart. On exam vitals stable. Conjunctiva pale. Cardio S1 and S2 normal. Respirator system bilateral scattered rhonchi and crackles. Abdomen soft nontender. I recommended the patient to follow up closely with the Dr. Latham and as well as primary physician in the outpatient setting closely. Patient will also follow- up with primary doctor, Dr. Latham and Dr. French for follow-up of anemia and further evaluation including a possible bone marrow examination. Final diagnosis 1. Symptomatic anemia leading to significant shortness of breath and weakness status post blood transfusion improved. 2. COPD acute exacerbation. 3. History of recent right lower lobe pneumonia. 4. History and nicotine dependence. 5. History of spontaneous pneumothorax. 6. Anxiety and depression. Plan - Discharge Summary New Discharge Prescriptions: Continue Tiotropium 18 Mcg/Puff [Spiriva] 1 cap INHALATION RT-DAILY Fluticasone/Salmeterol [Advair 250-50 Diskus] 1 puff INHALATION RT-BID Ipratropium-Albuterol Nebulize [Duoneb 0.5 mg-3 mg/3 ml Soln] 3 ml INHALATION RT-QID #120 neb Montelukast [Singulair] 10 mg PO DAILY HYDROcodone/APAP 10-325MG [Wall 10-325] 1 tab PO TID Ferrous Sulfate [Iron (65 MG Elemental)] 325 mg PO DAILY Varenicline [Chantix] 1 mg PO BID Azithromycin [Zithromax] 250 mg PO MOWEFR Cefdinir [Omnicef] 300 mg PO BID predniSONE 10 mg PO DIRECTED #30 tab Discharge Medication List Fluticasone/Salmeterol [Advair 250-50 Diskus] 1 puff INHALATION RT-BID 10/09/16 [History] Tiotropium 18 Mcg/Puff [Spiriva] 1 cap INHALATION RT-DAILY 10/09/16 [History] Ipratropium-Albuterol Nebulize [Duoneb 0.5 mg-3 mg/3 ml Soln] 3 ml INHALATION RT -QID #120 neb 10/15/16 [Rx] Azithromycin [Zithromax] 250 mg PO MOWEFR 01/05/17 [History] Cefdinir [Omnicef] 300 mg PO BID 01/05/17 [History] Ferrous Sulfate [Iron (65 MG Elemental)] 325 mg PO DAILY 01/05/17 [History] HYDROcodone/APAP 10-325MG [Wall 10-325] 1 tab PO TID 01/05/17 [History] Montelukast [Singulair] 10 mg PO DAILY 01/05/17 [History] Varenicline [Chantix] 1 mg PO BID 01/05/17 [History] predniSONE 10 mg PO DIRECTED #30 tab 01/08/17 [Rx] Follow up Appointment(s)/Referral(s): Yang Corrigan DO [Primary Care Provider] - 3 Days Ambulatory/Diagnostic Orders: Complete Blood Count w/diff [LAB.AMB] Location: Determined By Patient Patient Instructions/Handouts: Anemia (DC) Activity/Diet/Wound Care/Special Instructions: diet cardiac act limited till f/u Discharge Disposition: HOME SELF-CARE
[2017-01-13] MEDS ORDERED: AZITHROMYCIN 250 MG TAB PO SCH (09:00)
== END 2017-01-11 15:45 | disposition home or self-care (01) ==
LOC: EC 13:16 → 4MS4W 16:49
PROVIDERS: ADMIT Hospitalist; ATTEND Hospitalist
DX: D53.9 Nutritional anemia, unspecified (principal); D50.9 Iron deficiency anemia, unspecified; R05 Cough; R53.1 Weakness; J44.1 Chronic obstructive pulmonary disease with (acute) exacerbation; J96.21 Acute and chronic respiratory failure with hypoxia; F17.200 Nicotine dependence, unspecified, uncomplicated; Z87.01 Personal history of pneumonia (recurrent); N40.0 Benign prostatic hyperplasia without lower urinary tract symptoms; M19.90 Unspecified osteoarthritis, unspecified site; I71.4 Abdominal aortic aneurysm, without rupture; Z99.81 Dependence on supplemental oxygen; F41.9 Anxiety disorder, unspecified; F32.9 Major depressive disorder, single episode, unspecified; M25.551 Pain in right hip; Z79.51 Long term (current) use of inhaled steroids; Z79.899 Other long term (current) drug therapy; Z79.891 Long term (current) use of opiate analgesic; Z82.49 Family history of ischemic heart disease and other diseases of the circulatory system; Z80.7 Family history of other malignant neoplasms of lymphoid, hematopoietic and related tissues; Z80.1 Family history of malignant neoplasm of trachea, bronchus and lung
CPT/HCPCS: 99285; 36430; 96374; 96361 ×4; 36415; 94640 ×4; 93005; 86900; 86901; 80053; 82550; 82553; 83735; 84484; 85025 ×2; 85610; 85730; 86850; 86920; 71020; G0378 ×2; P9016; J1885; J7512

== ENCOUNTER 2017-01-28 06:27 | Day surgery (SDC) | payer MEDICARE, OTHER ==
[2017-01-27 08:53] VITALS: BMI 19.6
[~2017-01-28 06:27] MED LIST: LACTATED RINGERS 1,000 ML IV SCH
[2017-01-28 07:04] VITALS: TEMP 98.4
[2017-01-28 07:07] LABS: Glucose,Whole Blood 87 mg/dL (75-99)
[2017-01-28] MEDS ORDERED: LACTATED RINGERS 1,000 ML IV ONE (07:09)
[2017-01-28] MEDS ORDERED: MIDAZOLAM 2 MG/2 ML VIAL ONE (07:13)
[2017-01-28] MEDS ORDERED: PROPOFOL 10 MG/ML 20 ML VIAL IV ONE (07:13)
[2017-01-28] MEDS ORDERED: fentaNYL (PF) 50 MCG/ML 2 ML AMP ONE (07:13)
[2017-01-28 07:58] VITALS: BP 99/58; PULSE 82; RESP 18
[2017-01-28 09:05] LABS: Anisocytosis Slight; Aty Lym Flag Slight; CH 35.1; CHCM 32.3; HCT 36.2 % (39.0-53.0); HDW 2.92; HGB 11.7 gm/dL (13.0-17.5); MCH 35.2 pg (25.0-35.0); MCHC 32.3 g/dL (31.0-37.0); MCV 108.9 fL (80.0-100.0); Macrocytosis Marked; Mean Platelet Volume 7.9; RBC 3.33 m/uL (4.30-5.90); RDW 18.3 % (11.5-15.5); WBC 4.9 k/uL (3.8-10.6)
--- NOTE | 2017-01-28 09:13 | PCN ---
PROCEDURE NOTE DATE OF PROCEDURE: 01/28/2017. PREOPERATIVE DIAGNOSIS: Macrocytic anemia. POSTOPERATIVE DIAGNOSIS: Macrocytic anemia ANESTHESIA: Local with IV systemic sedation. DETAILS OF THE OPERATIVE TECHNIQUE: The skin overlying the right iliac crest was prepared with alcohol. After adequate sterile draping, systemic sedation and local anesthesia, a size 11 4 inch Jamshidi needle was utilized to access the periosteum with ease. A total of 15 mL of aspirate as well as cross 2 cm bone core biopsies were obtained. The patient tolerated the procedure very well. There was no immediate procedure related complications. TOTAL BLOOD LOSS: Less than 1 mL. Results pending. MMODL / IJN: [id number] /
[2017-01-28 09:51] LABS: Add Differential Manual Differential
[2017-01-28 09:53] LABS: Manual Review Performed; Nucleated Red Blood Cells 0 /100 WBC (0-0); Total Cells Counted 100
[2017-02-28 12:03] LABS: Bone Marrow Cell Count See Pathology Report
== END 2017-01-28 08:14 | disposition home or self-care (01) ==
LOC: OR 06:27
PROVIDERS: ATTEND Internal Medicine Hematology & Oncology
DX: D53.9 Nutritional anemia, unspecified (principal); J43.9 Emphysema, unspecified; F17.200 Nicotine dependence, unspecified, uncomplicated; Z80.1 Family history of malignant neoplasm of trachea, bronchus and lung; Z80.49 Family history of malignant neoplasm of other genital organs; Z80.7 Family history of other malignant neoplasms of lymphoid, hematopoietic and related tissues; Z79.891 Long term (current) use of opiate analgesic; Z79.51 Long term (current) use of inhaled steroids; Z79.899 Other long term (current) drug therapy
CPT/HCPCS: 85025; 38221; J2250; J3010; J2704; G0364

== ENCOUNTER 2017-03-25 18:41 | Observation (INO) | payer MEDICARE ==
[2017-03-25] MEDS ORDERED: LORazepam 2 MG/ML INJ IV STA (19:17)
[2017-03-25] MEDS ORDERED: methylPREDNISolone SOD SUCCI 125 MG/2 ML VIAL IV STA (19:17)
[2017-03-25] MEDS ORDERED: SODIUM CHLORIDE 0.9% 1,000 ML IV STA (19:17)
[2017-03-25] MEDS ORDERED: ALBUTEROL NEBULIZED 2.5 MG/3 ML INHALATION STA (19:17)
[2017-03-25] MEDS ORDERED: IPRATROPIUM 0.5 MG/2.5 ML NEBU INHALATION STA (19:17)
[2017-03-25] MEDS ORDERED: SODIUM CHLORIDE 0.9% 500 ML IV STA (19:17)
[2017-03-25] MEDS ORDERED: LEVOFLOXACIN 750MG-D5W PMX 750 MG in DEXTROSE/WATER 1 150ML.BAG IVPB STA (19:17)
[2017-03-25] MEDS ORDERED: MORPHINE SULFATE 2 MG/ML SYRINGE IVP STA (19:18)
[2017-03-25] MEDS: SODIUM CHLORIDE 0.9% 1,000 ML IV STA ×3 (19:37→23:18)
--- NOTE | 2017-03-25 19:39 | ED ---
General Adult HPI - General Chief complaint: Shortness of Breath Stated complaint: Diff Breathing Time Seen by Provider: 03/25/17 19:05 Source: patient, RN notes reviewed, old records reviewed Mode of arrival: ambulatory Limitations: no limitations - History of Present Illness Initial comments: This is a 51-year-old male to the ER for various or shortness of breath or is of breath and cough congestion positive history of COPD positive smoker. Patient is hospital admission one month ago for similar complaints. Pneumonia. Patient denies any fevers, no chest pain. No travel history no sick contacts no change in medication. Patient is continue to smoke - Related Data Home Medications Medication Instructions Recorded Confirmed Fluticasone/Salmeterol [Advair 1 puff INHALATION RT-BID 10/09/16 03/25/17 250-50 Diskus] Tiotropium 18 Mcg/Puff [Spiriva] 1 cap INHALATION RT-DAILY 10/09/16 03/25/17 Azithromycin [Zithromax] 250 mg PO MOWEFR 01/05/17 03/25/17 HYDROcodone/APAP 10-325MG [[place] 1 tab PO QID 01/05/17 03/25/17 10-325] Montelukast [Singulair] 10 mg PO HS 01/05/17 03/25/17 Multivit-Min/FA/Lycopen/Lutein 1 tab PO DAILY 01/27/17 03/25/17 [Centrum Silver Men Tablet] predniSONE 5 mg PO QAM 01/27/17 03/25/17 Ipratropium-Albuterol Nebulize 3 ml INHALATION RT-QID PRN 03/25/17 03/25/17 [Duoneb 0.5 mg-3 mg/3 ml Soln] Allergies Allergy/AdvReac Type Severity Reaction Status Date / Time No Known Allergies Allergy Verified 03/25/17 19:31 Review of Systems ROS Statement: Those systems with pertinent positive or pertinent negative responses have been documented in the HPI. ROS Other: All systems not noted in ROS Statement are negative. Past Medical History Past Medical History: COPD, Prostate Disorder Additional Past Medical History / Comment(s): abdominal aortic aneurysm, difficulties with memory history of bilateral pneumothoraces at the young age requiring breath or chest tube insertion and pleurodesis. The patient also has BPH and chronic degenerative arthritis and hip pain on the right. home 02 - 2L History of Any Multi-Drug Resistant Organisms: None Reported Additional Past Surgical History / Comment(s): spontaneous pneumo thorax (L x1, Rx2) Past Anesthesia/Blood Transfusion Reactions: No Reported Reaction Additional Past Anesthesia/Blood Transfusion Reaction / Comment(s): pt stated he moved here from [place] a year ago. lives alone in [facility], [place]-no steps. no outside services received. has home 02 /[facility]. no pets. no past service. 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 Past Psychological History: Anxiety, Depression Smoking Status: Current every day smoker Past Alcohol Use History: None Reported Past Drug Use History: None Reported - Past Family History Father History Unknown: Yes Mother Family Medical History: Cancer, Coronary Artery Disease (CAD) Additional Family Medical History / Comment(s): lung cancer, lymphoma. General Exam Limitations: no limitations General appearance: alert, in no apparent distress Head exam: Present: atraumatic, normocephalic, normal inspection Eye exam: Present: normal appearance, PERRL, EOMI. Absent: scleral icterus, conjunctival injection, periorbital swelling ENT exam: Present: normal exam, mucous membranes moist Neck exam: Present: normal inspection. Absent: tenderness, meningismus, lymphadenopathy Respiratory exam: Present: normal lung sounds bilaterally, wheezes. Absent: respiratory distress, rales, rhonchi, stridor Cardiovascular Exam: Present: regular rate, normal rhythm, normal heart sounds. Absent: systolic murmur, diastolic murmur, rubs, gallop, clicks GI/Abdominal exam: Present: soft, normal bowel sounds. Absent: distended, tenderness, guarding, rebound, rigid Extremities exam: Present: normal inspection, full ROM, normal capillary refill. Absent: tenderness, pedal edema, joint swelling, calf tenderness Back exam: Present: normal inspection Neurological exam: Present: alert, oriented X3, CN II-XII intact Psychiatric exam: Present: normal affect, normal mood Skin exam: Present: warm, dry, intact, normal color. Absent: rash Course Vital Signs 03/25/17 03/25/17 03/25/17 18:58 19:36 19:56 Temperature 97.7 F Pulse Rate 111 H 65 67 Respiratory 24 20 18 Rate Blood Pressure 106/51 O2 Sat by Pulse 96 Oximetry - Reevaluation(s) Reevaluation #1: 03/25/17 21:04 No improvement after breathing treatment EKG Findings - EKG Comments: EKG Findings:: EKG shows normal sinus rhythm rate of 91, DE 144, QRS 76, QTc 413 Medical Decision Making - Medical Decision Making 51 male to the ER for COPD exacerbation no improvement after breathing treatments - Lab Data Result diagrams: 03/25/17 19:39 03/25/17 19:39 Lab Results 03/25/17 03/25/17 03/25/17 Range/Units 19:39 19:39 19:39 WBC 5.8 (3.8-10.6) k/uL RBC 2.64 L (4.30-5.90) m/uL Hgb 9.1 L D (13.0-17.5) gm/dL Hct 28.2 L (39.0-53.0) % MCV 107.0 H (80.0-100.0) fL MCH 34.4 (25.0-35.0) pg MCHC 32.2 (31.0-37.0) g/dL RDW 17.9 H (11.5-15.5) % Plt Count 243 (150-450) k/uL Neutrophils % 64 % Lymphocytes % 27 % Monocytes % 5 % Eosinophils % 1 % Basophils % 1 % Neutrophils # 3.7 (1.3-7.7) k/uL Lymphocytes # 1.6 (1.0-4.8) k/uL Monocytes # 0.3 (0-1.0) k/uL Eosinophils # 0.0 (0-0.7) k/uL Basophils # 0.0 (0-0.2) k/uL Hypochromasia Slight Poikilocytosis Slight Anisocytosis Slight Macrocytosis Marked PT (9.0-12.0) sec INR (<1.2) APTT (22.0-30.0) sec Sodium 138 (137-145) mmol/L Potassium 4.0 (3.5-5.1) mmol/L Chloride 103 (98-107) mmol/L Carbon Dioxide 28 (22-30) mmol/L Anion Gap 7 mmol/L BUN 12 (9-20) mg/dL Creatinine 0.70 (0.66-1.25) mg/dL Est GFR (MDRD) Af Amer >60 (>60 ml/min/1.73 sqM) Est GFR (MDRD) Non-Af >60 (>60 ml/min/1.73 sqM) Glucose 83 (74-99) mg/dL Calcium 8.9 (8.4-10.2) mg/dL Magnesium 2.0 (1.6-2.3) mg/dL Total Bilirubin 0.5 (0.2-1.3) mg/dL AST 18 (17-59) U/L ALT 21 (21-72) U/L Alkaline Phosphatase 81 (38-126) U/L Total Creatine Kinase 42 L (55-170) U/L CK-MB (CK-2) 0.5 (0.0-2.4) ng/mL CK-MB (CK-2) Rel Index 1.2 Troponin I <0.012 (0.000-0.034) ng/mL NT-Pro-B Natriuret Pep pg/mL Total Protein 7.3 (6.3-8.2) g/dL Albumin 3.6 (3.5-5.0) g/dL 03/25/17 03/25/17 Range/Units 19:39 19:39 WBC (3.8-10.6) k/uL RBC (4.30-5.90) m/uL Hgb (13.0-17.5) gm/dL Hct (39.0-53.0) % MCV (80.0-100.0) fL MCH (25.0-35.0) pg MCHC (31.0-37.0) g/dL RDW (11.5-15.5) % Plt Count (150-450) k/uL Neutrophils % % Lymphocytes % % Monocytes % % Eosinophils % % Basophils % % Neutrophils # (1.3-7.7) k/uL Lymphocytes # (1.0-4.8) k/uL Monocytes # (0-1.0) k/uL Eosinophils # (0-0.7) k/uL Basophils # (0-0.2) k/uL Hypochromasia Poikilocytosis Anisocytosis Macrocytosis PT 10.3 (9.0-12.0) sec INR 1.0 (<1.2) APTT 22.5 (22.0-30.0) sec Sodium (137-145) mmol/L Potassium (3.5-5.1) mmol/L Chloride (98-107) mmol/L Carbon Dioxide (22-30) mmol/L Anion Gap mmol/L BUN (9-20) mg/dL Creatinine (0.66-1.25) mg/dL Est GFR (MDRD) Af Amer (>60 ml/min/1.73 sqM) Est GFR (MDRD) Non-Af (>60 ml/min/1.73 sqM) Glucose (74-99) mg/dL Calcium (8.4-10.2) mg/dL Magnesium (1.6-2.3) mg/dL Total Bilirubin (0.2-1.3) mg/dL AST (17-59) U/L ALT (21-72) U/L Alkaline Phosphatase (38-126) U/L Total Creatine Kinase (55-170) U/L CK-MB (CK-2) (0.0-2.4) ng/mL CK-MB (CK-2) Rel Index Troponin I (0.000-0.034) ng/mL NT-Pro-B Natriuret Pep 263 pg/mL Total Protein (6.3-8.2) g/dL Albumin (3.5-5.0) g/dL Disposition Clinical Impression: Acute exacerbation of chronic obstructive airways disease Disposition: ADMITTED IP TO THIS HOSP Condition: Good Referrals: Peace Latahm MD [Primary Care Provider] - 1-2 days
--- NOTE | 2017-03-25 19:41 | XR ---
EXAMINATION TYPE: XR chest 1V portable DATE OF EXAM: 03/25/2017 COMPARISON: 01/22/2017 HISTORY: Short of breath TECHNIQUE: Single frontal view of the chest is obtained. FINDINGS: Heart size is normal. There is extensive coarse reticular infiltrate in both lungs with co alescent density at the lung apices. There is blunting of right costophrenic angle. Pulmonary vascula rity is difficult to evaluate because of extensive lung disease. There are chest leads. The bony thor ax appears intact. There are apparent surgical clips at the lung apices. IMPRESSION: Extensive pulmonary fibrosis. No significant change compared to last exam. I do not see definite evidence for acute pneumonia. No definite heart failure.
[2017-03-25 20:01] LABS: Anisocytosis Slight; Basophils % (A) 1 %; CH 34.3; CHCM 32.2; Eosinophils % (A) 1 %; HCT 28.2 % (39.0-53.0); HDW 3.67; Hypochromasia Slight; Luc # (Auto) 0.17; Luc % (Auto) 3; Lymphocytes # (A) 1.6 k/uL (1.0-4.8); Lymphocytes % (A) 27 %; MCH 34.4 pg (25.0-35.0); MCHC 32.2 g/dL (31.0-37.0); Macrocytosis Marked; Monocytes # (A) 0.3 k/uL (0-1.0); Monocytes % (A) 5 %; Neutrophils # (A) 3.7 k/uL (1.3-7.7); Neutrophils % (A) 64 %; Poikilocytosis Slight; RBC 2.64 m/uL (4.30-5.90); RDW 17.9 % (11.5-15.5); WBC 5.8 k/uL (3.8-10.6); WBC (Perox) 5.43
[2017-03-25 20:03] LABS: HGB 9.1 gm/dL (13.0-17.5)
[2017-03-25 20:06] LABS: Partial Thromboplastin Time 22.5 sec (22.0-30.0); Prothrombin Time 10.3 sec (9.0-12.0)
[2017-03-25 20:12] LABS: ALT 21 U/L (21-72); AST 18 U/L (17-59); Alkaline Phosphatase 81 U/L (38-126); Anion Gap 7 mmol/L; Blood Urea Nitrogen 12 mg/dL (9-20); Calcium 8.9 mg/dL (8.4-10.2); Carbon Dioxide 28 mmol/L (22-30); Chloride 103 mmol/L (98-107); Glucose 83 mg/dL (74-99); Non-African American GFR(MDRD) >60 (>60 ml/min/1.73 sqM); Sodium 138 mmol/L (137-145); Total Bilirubin 0.5 mg/dL (0.2-1.3); Total Protein 7.3 g/dL (6.3-8.2)
[2017-03-25 20:20] LABS: Creatine Kinase 42 U/L (55-170)
[2017-03-25 20:34] LABS: Creatine Kinase MB 0.5 ng/mL (0.0-2.4); Troponin I <0.012 ng/mL (0.000-0.034)
[2017-03-25] MEDS: methylPREDNISolone SOD SUCCI 125 MG/2 ML VIAL IV SCH (23:14)
[2017-03-25] MEDS: MORPHINE SULFATE 2 MG/ML SYRINGE IVP PRN (23:19)
[2017-03-25 23:36] VITALS: BMI 19.0
[2017-03-26] MEDS: methylPREDNISolone SOD SUCCI 125 MG/2 ML VIAL IV SCH ×2 (06:00→12:46)
[2017-03-26] MEDS: MORPHINE SULFATE 2 MG/ML SYRINGE IVP PRN ×2 (06:03→10:23)
[2017-03-26] MEDS: IPRATROPIUM-ALBUTEROL 3 ML NEB INHALATION SCH ×3 (07:38→16:51)
[2017-03-26 07:53] LABS: Glucose,Whole Blood 149 mg/dL (75-99)
[2017-03-26] MEDS: INSULIN ASPART 100 UNIT/ML 1 ML 10 ML VIAL SQ SCH ×2 (08:02→11:47)
[2017-03-26 08:28] VITALS: RESP 16
[2017-03-26] MEDS ORDERED: ENOXAPARIN 40 MG/0.4 ML SYRINGE SQ SCH (09:00)
[2017-03-26] MEDS ORDERED: NICOTINE 21MG/24HR PATCH TRANSDERM SCH (09:00)
[2017-03-26] MEDS ORDERED: HYDROcodone/APAP 10-325MG 1 EACH TAB PO PRN (10:29)
[2017-03-26] MEDS ORDERED: HYDROmorphone 0.5 MG/0.5 ML SYRINGE IM PRN (10:32)
[2017-03-26 11:44] LABS: Glucose,Whole Blood 124 mg/dL (75-99)
[2017-03-26] MEDS ORDERED: SYMBICORT 160-4.5 MCG INHALER INHALATION SCH (12:00)
--- NOTE | 2017-03-26 12:38 | P.CNPUL ---
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 He denies having any sick contacts, denies having any fever or chills. He has some baseline dyspnea worse with exertion, however the past few days his shortness of breath has increased. Unfortunately despite his severe lung function limitation he continues to smoke, currently down to about a pack a day. He carries a [id number] smoking history, he is home oxygen at 2 -3 L/m. He he was hospitalized recently for COPD exacerbation and right lower lobe pneumonia in January. During that stay he was also found to be anemic, for which hematology was consulted. Dr. French performed a bone marrow biopsy on 01/28/2017 for evidence of macrocytic anemia. Patient states he recently saw Dr. French in your office about a week ago, was told he has some type of a rare bone cancer, and was supposed to start injections for his anemia. He is unsure what type of injections. Today she seen on medical surgical floor, he is resting comfortably in bed, in no acute distress. He states he is breathing has improved significantly since admission. He denies any worsening dyspnea, no significant chest congestion or sputum production. Lung sounds are diminished overall with a few scattered bibasilar crackles. But no wheezes, no rhonchi. At home his maintenance inhalers including Advair and Spiriva. We will initiate Symbicort and DuoNeb 4 times a day and when necessary. She received 1 dose of IV Levaquin in the emergency room, we will start him on oral Levaquin 750 mg daily. Patient appears to be pale, but he has been hemodynamically stable. His hemoglobin on admission was 9.1, with MCV of 107. No coagulopathy, no leukocytosis, no electrolyte abnormality, proBNP was normal at 263, troponin was negative 1. Cardiac enzymes were negative 1 set. Review of Systems All systems: negative Constitutional: Denies chills, Denies fever Eyes: denies blurred vision, denies pain Ears, nose, mouth and throat: Denies headache, Denies sore throat Cardiovascular: Denies chest pain, Denies shortness of breath Respiratory: Denies cough Gastrointestinal: Denies abdominal pain, Denies diarrhea, Denies nausea, Denies vomiting Musculoskeletal: Denies myalgias Integumentary: Denies pruritus, Denies rash Neurological: Denies numbness, Denies weakness Psychiatric: Denies anxiety, Denies depression Endocrine: Denies fatigue, Denies weight change Past Medical History Past Medical History: COPD, Prostate Disorder Additional Past Medical History / Comment(s): abdominal aortic aneurysm, difficulties with memory history of bilateral pneumothoraces at the young age requiring breath or chest tube insertion and pleurodesis. The patient also has BPH and chronic degenerative arthritis and hip pain on the right. home 02 - 2L History of Any Multi-Drug Resistant Organisms: None Reported Additional Past Surgical History / Comment(s): spontaneous pneumo thorax (L x1, Rx2) Past Anesthesia/Blood Transfusion Reactions: No Reported Reaction Additional Past Anesthesia/Blood Transfusion Reaction / Comment(s): pt stated he moved here from [place] a year ago. lives alone in [facility]-no steps. no outside services received. has home 02 /[facility]. no pets. no past service. 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 Past Psychological History: Anxiety, Depression Additional Psychological History / Comment(s): .(continues to smoke 1 ppd). As noted continues to smoke despite his oxygen-dependent COPD. No experience. No international travel. No animal exposures. Is not and has no children Smoking Status: Current every day smoker Past Alcohol Use History: None Reported Additional Past Alcohol Use History / Comment(s): States trying to quit smoking. Past Drug Use History: None Reported - Past Family History Father History Unknown: Yes Mother Family Medical History: Cancer, Coronary Artery Disease (CAD) Additional Family Medical History / Comment(s): lung cancer, lymphoma. Medications and Allergies Home Medications Medication Instructions Recorded Confirmed Type Fluticasone/Salmeterol [Advair 1 puff INHALATION RT-BID 10/09/16 03/25/17 History 250-50 Diskus] Tiotropium 18 Mcg/Puff [Spiriva] 1 cap INHALATION RT-DAILY 10/09/16 03/25/17 History HYDROcodone/APAP 10-325MG [[place] 1 tab PO QID 01/05/17 03/25/17 History 10-325] Montelukast [Singulair] 10 mg PO HS 01/05/17 03/25/17 History Multivit-Min/FA/Lycopen/Lutein 1 tab PO DAILY 01/27/17 03/25/17 History [Centrum Silver Men Tablet] Ipratropium-Albuterol Nebulize 3 ml INHALATION RT-QID PRN 03/25/17 03/25/17 History [Duoneb 0.5 mg-3 mg/3 ml Soln] Levofloxacin [Levaquin] 750 mg PO HS #5 tab 03/26/17 Rx Nicotine 21Mg/24Hr Patch [Habitrol] 1 patch TRANSDERM DAILY #30 patch 03/26/17 Rx predniSONE 5 mg PO QAM #0 03/26/17 03/25/17 Rx predniSONE 10 mg PO DIRECTED #40 tab 03/26/17 Rx Allergies Allergy/AdvReac Type Severity Reaction Status Date / Time No Known Allergies Allergy Verified 03/25/17 19:31 Physical Exam Vitals: Vital Signs Temp Pulse Pulse Resp BP BP Pulse Ox 03/26/17 07:49 80 03/26/17 07:39 84 03/26/17 07:00 97.2 F L 84 16 100/65 97 03/25/17 22:34 97.9 F 111 H 24 119/56 98 03/25/17 21:32 108 H 16 100/60 96 03/25/17 19:56 67 18 03/25/17 19:36 65 20 03/25/17 18:58 97.7 F 111 H 24 106/51 96 Intake and Output 03/25/17 03/26/17 03/26/17 22:59 06:59 14:59 Other: Voiding Method Toilet Toilet Urinal # Voids 1 Weight 63.503 kg GENERAL EXAM: Alert, active, pale, comfortable in no apparent distress. HEAD: Normocephalic/atraumatic. EYES: Normal reaction of pupils, equal size. Conjunctiva pink, sclera white. NOSE: Clear with pink turbinates. THROAT: No erythema or exudates. NECK: No masses, no JVD, no thyroid enlargement, no adenopathy. CHEST: No chest wall deformity. Symmetrical expansion. LUNGS: Equal air entry with a few bibasilar crackles, but no wheezes, no rhonchi or dullness CVS: Regular rate and rhythm, normal S1 and S2, no gallops, no murmurs, no rubs ABDOMEN: Soft, nontender. No hepatosplenomegaly, normal bowel sounds, no guarding or rigidity. EXTREMITIES: No clubbing, no edema, no cyanosis, 2+ pulses and upper and lower extremities. MUSCULOSKELETAL: Muscle strength and tone normal. SPINE: No scoliosis or deformity SKIN: No rashes CENTRAL NERVOUS SYSTEM: Alert and oriented -3. No focal deficits, tone is normal in all 4 extremities. PSYCHIATRIC: Alert and oriented -3. Appropriate affect. Intact judgment and insight. Results - Laboratory Findings CBC and BMP: 03/25/17 19:39 03/25/17 19:39 PT/INR, D-dimer PT 10.3 sec (9.0-12.0) 03/25/17 19:39 INR 1.0 (<1.2) 03/25/17 19:39 Abnormal lab findings: Abnormal Labs 03/25/17 03/25/17 03/26/17 19:39 19:39 07:41 RBC 2.64 L Hgb 9.1 L D Hct 28.2 L MCV 107.0 H RDW 17.9 H POC Glucose (mg/dL) 149 H Total Creatine Kinase 42 L 03/26/17 11:42 RBC Hgb Hct MCV RDW POC Glucose (mg/dL) 124 H Total Creatine Kinase - Diagnostic Findings Chest x-ray: pending Assessment and Plan Plan: Assessment: #1. Acute COPD exacerbation, with tracheobronchitis #2. History of advanced oxygen-dependent COPD #3. Ongoing nicotine addiction, one pack a day for 37 years #4. Macrocytic anemia, status post bone marrow biopsy, follows with hematology #5. History of spontaneous pneumothorax, requiring chest tube placements, status post pleurodesis #6. History of benign prostatic hypertrophy #7. Chronic degenerative arthritis #8. Anxiety, depression #9. History of abdominal aortic aneurysm Plan: We will initiate Symbicort, continue DuoNeb 4 times a day and when necessary. Continue Solu-Medrol, patient received 1 dose of IV Levaquin in the ER, will start him on oral Levaquin. Patient has significantly improved in last 24 hours since admission. Continue current medical treatment. Possibly home in next 24 hours. I performed a history & physical examination of the patient and discussed their management with my nurse practitioner, Corie Dasilva. I reviewed the nurse practitioner's note and agree with the documented findings and plan of care. Lung sounds are positive for some crackles at bilateral bases. No rhonchi, no wheezes. The findings and the impression was discussed with the patient. I attest to the documentation by the nurse practitioner. Time with Patient: Greater than 30 <Efraín Salinas - Last Filed: 03/26/17 15:35> Physical Exam Vitals: Vital Signs Temp Pulse Pulse Resp BP BP Pulse Ox 03/26/17 15:00 97.6 F 94 16 91/55 95 03/26/17 12:27 80 03/26/17 12:16 76 03/26/17 07:49 80 03/26/17 07:39 84 03/26/17 07:00 97.2 F L 84 16 100/65 97 03/25/17 22:34 97.9 F 111 H 24 119/56 98 03/25/17 21:32 108 H 16 100/60 96 03/25/17 19:56 67 18 03/25/17 19:36 65 20 03/25/17 18:58 97.7 F 111 H 24 106/51 96 Intake and Output 03/26/17 03/26/17 03/26/17 06:59 14:59 22:59 Intake Total 800 Balance 800 Intake: Intake, IV Titration 800 Amount Sodium Chloride 0.9% 1, 800 000 ml @ 100 mls/hr IV . Q10H STA Rx#:[id number] Other: Voiding Method Toilet Toilet Toilet Urinal Urinal # Voids 1 Weight 63.503 kg Patient Weight 03/27/17 06:59 Weight 63.503 kg Results - Laboratory Findings CBC and BMP: 03/25/17 19:39 03/25/17 19:39 PT/INR, D-dimer PT 10.3 sec (9.0-12.0) 03/25/17 19:39 INR 1.0 (<1.2) 03/25/17 19:39 Abnormal lab findings: Abnormal Labs 03/25/17 03/25/17 03/26/17 19:39 19:39 07:41 RBC 2.64 L Hgb 9.1 L D Hct 28.2 L MCV 107.0 H RDW 17.9 H POC Glucose (mg/dL) 149 H Total Creatine Kinase 42 L 03/26/17 11:42 RBC Hgb Hct MCV RDW POC Glucose (mg/dL) 124 H Total Creatine Kinase Assessment and Plan Plan: I attest to the above-mentioned information. This is a joint evaluation that was done along with an expectoration or. The patient is improved significantly over the past 24 hours. I made recommendations for discharge today on a prednisone burst taper in the course of Levaquin on an outpatient basis. The patient also uses Spiriva and Advair and oxygen for his COPD on outpatient basis. Follow-up with Dr. Fuchs.
[2017-03-26 15:24] VITALS: BP 91/55; PULSE 94; TEMP 97.6
--- NOTE | 2017-03-26 19:20 | HP ---
HISTORY AND PHYSICAL COMBINED HISTORY AND PHYSICAL/DISCHARGE SUMMARY: CHIEF COMPLAINT: Shortness of breath and cough and chest pain. HISTORY OF PRESENT ILLNESS: This 51-year-old gentleman with a past medical history of multiple medical problems, COPD, history of prostate disorder, history of abdominal aortic aneurysm, history of anxiety, depression being followed by Dr. Latham in the outpatient setting, was complaining of shortness of breath over the past several days. Because of lack of improvement, the patient came to [facility] and admitted for further evaluation and treatment. Patient also had some left-sided chest pain. There is no history of fever, rigors or chills. No history of headache, loss of consciousness or seizures. A chest x-ray was done after admission and showed extensive pulmonary fibrotic changes. There is no history of fever, rigors at this time. The patient is feeling much better. PAST MEDICAL HISTORY: History of COPD, history of prostate cancer, abdominal aortic aneurysm. MEDICATIONS: Home medications are: 1. Prednisone. 2. Spiriva 1 puff daily. 4. Singular 10 mg q.h.s. 5. DuoNeb q.i.d. and p.r.n. 6. [place] 10 mg q.i.d. p.r.n. 7. Advair 250/50 one puff b.i.d. 8. Prednisone taper. 9. Habitrol 21 daily. 10.Levaquin. ALLERGIES: None. FAMILY HISTORY: History of cancer, CAD, lung cancer and lymphoma. SOCIAL HISTORY: History of smoking. No history of alcohol intake. REVIEW OF SYSTEMS: ENT: No diminished vision. No diminished hearing. Cardiovascular: No angina or palpitations. Respiratory: As mentioned earlier. GI no nausea or vomiting. : No dysuria. Central nervous system: No numbness or weakness. Allergy/Immunology: No asthma or hayfever. Musculoskeletal: As mentioned earlier. Hematology/Oncology: No history of anemia. Endocrine: No history of diabetes mellitus or hypothyroidism. Constitutional: As mentioned earlier. Dermatology: Negative. Rheumatology: Negative. Psychiatric: As mentioned earlier. PHYSICAL EXAMINATION: The patient is alert oriented times three. Pulse is 94, blood pressure 91/52, respirations 16, temperature 97.6, pulse ox 94% on 2 L. HEENT: Conjunctivae normal. NECK: No jugular venous distention. CARDIOVASCULAR: S1, S2 muffled. RESPIRATORY: Breath sounds diminished in the bases. A few rhonchi and crackles. Expiratory wheezing also present. ABDOMEN: Soft, nontender. No mass palpable. Legs no edema. No swelling. NERVOUS SYSTEM: Higher functions as mentioned earlier. Moves all four limbs. No focal deficits. Lymphatics: No lymph nodes palpable in the neck, axillae or groin. Skin: No ulcers, rashes or bleeding. LAB STUDIES: WBC 5.2, hemoglobin 9.1. ASSESSMENT: 1. Chronic obstructive pulmonary disease acute exacerbation with acute purulent tracheobronchitis. 2. History of prostate disorder. 3. History of abdominal aortic aneurysm. 4. Pulmonary fibrosis, possibly. 5. History of spontaneous pneumothorax. 6. Anxiety, depression. 7. History of nicotine dependence. RECOMMENDATIONS AND DISCUSSION: In this 51-year-old gentleman who presented with multiple complex medical issues, we will monitor the patient closely. Continue the current medications. Symptomatic treatment. Dr. Salinas saw the patient. Patient improved significantly. Patient will be discharged in stable condition with guarded prognosis and with a tapering dose steroids, antibiotics and bronchodilators. Please refer to the discharge summary for further details. Closely follow with Dr. Latham in the outpatient setting. MMODL / IJN: [id number] / NILAY
[2017-03-26] MEDS ORDERED: LEVOFLOXACIN 750 MG TAB PO SCH (21:00)
== END 2017-03-26 16:40 | disposition home or self-care (01) ==
LOC: EC 18:41 → 5MS5E 21:02
PROVIDERS: ADMIT Hospitalist; ATTEND Hospitalist
DX: J44.1 Chronic obstructive pulmonary disease with (acute) exacerbation (principal); J44.0 Chronic obstructive pulmonary disease with (acute) lower respiratory infection; J20.9 Acute bronchitis, unspecified; N40.0 Benign prostatic hyperplasia without lower urinary tract symptoms; M19.90 Unspecified osteoarthritis, unspecified site; M25.551 Pain in right hip; D53.9 Nutritional anemia, unspecified; F41.9 Anxiety disorder, unspecified; F32.9 Major depressive disorder, single episode, unspecified; F17.200 Nicotine dependence, unspecified, uncomplicated; I71.4 Abdominal aortic aneurysm, without rupture; Z99.81 Dependence on supplemental oxygen; Z87.01 Personal history of pneumonia (recurrent); Z85.46 Personal history of malignant neoplasm of prostate; Z79.51 Long term (current) use of inhaled steroids; Z79.2 Long term (current) use of antibiotics; Z79.891 Long term (current) use of opiate analgesic; Z79.899 Other long term (current) drug therapy; Z82.49 Family history of ischemic heart disease and other diseases of the circulatory system; Z80.7 Family history of other malignant neoplasms of lymphoid, hematopoietic and related tissues; Z80.1 Family history of malignant neoplasm of trachea, bronchus and lung
CPT/HCPCS: 36415; 71010; 80053; 82550; 82553; 83036; 83735; 83880; 84484; 85025; 85610; 85730; 87040; 93005; 94640; 96361; 96365; 96372; 96375; 96376; 99285

== ENCOUNTER 2017-05-22 15:18 | Inpatient (IN) | payer MEDICARE, OTHER ==
[2017-05-22] MEDS ORDERED: methylPREDNISolone SOD SUCCI 125 MG/2 ML VIAL IV STA (16:00)
[2017-05-22] MEDS ORDERED: SODIUM CHLORIDE 0.9% 500 ML IV STA (16:00)
[2017-05-22] MEDS ORDERED: ALBUTEROL NEBULIZED 2.5 MG/3 ML INHALATION STA (16:00)
[2017-05-22] MEDS ORDERED: SODIUM CHLORIDE 0.9% 1,000 ML IV STA (16:00)
[2017-05-22] MEDS ORDERED: IPRATROPIUM 0.5 MG/2.5 ML NEBU INHALATION STA (16:00)
--- NOTE | 2017-05-22 16:03 | ED ---
General Adult HPI - General Chief complaint: Shortness of Breath Stated complaint: SOB Time Seen by Provider: 05/22/17 15:51 Source: patient, RN notes reviewed Mode of arrival: wheelchair Limitations: no limitations - History of Present Illness Initial comments: 51-year-old male history of myelodysplastic syndrome and severe COPD on home oxygen presents with cough and dyspnea. Symptoms have worsened over the past several days. He has had a productive cough with clear white sputum. No fever. Patient does report some intermittent left-sided chest pain which she attributes to previous pneumonia. Patient was evaluated at his primary care physician's office this morning, and was encouraged to present to the emergency department for evaluation. Patient denies any new or worsening pain. Denies lower extremity swelling. Denies fever or chills. Denies nausea vomiting or diarrhea. - Related Data Home Medications Medication Instructions Recorded Confirmed Fluticasone/Salmeterol [Advair 1 puff INHALATION RT-BID 10/09/16 05/22/17 250-50 Diskus] Tiotropium 18 Mcg/Puff [Spiriva] 1 cap INHALATION RT-DAILY 10/09/16 05/22/17 HYDROcodone/APAP 10-325MG [[place] 1 tab PO QID 01/05/17 05/22/17 10-325] Montelukast [Singulair] 10 mg PO HS 01/05/17 05/22/17 Multivit-Min/FA/Lycopen/Lutein 1 tab PO DAILY 01/27/17 05/22/17 [Centrum Silver Men Tablet] Ipratropium-Albuterol Nebulize 3 ml INHALATION RT-QID PRN 03/25/17 05/22/17 [Duoneb 0.5 mg-3 mg/3 ml Soln] buPROPion HCL [Wellbutrin SR] 100 mg PO BID 03/30/17 05/22/17 Epoetin Joe [Procrit] 20,000 unit INJ WE 05/22/17 05/22/17 Allergies Allergy/AdvReac Type Severity Reaction Status Date / Time No Known Allergies Allergy Verified 05/22/17 16:37 Review of Systems ROS Statement: Those systems with pertinent positive or pertinent negative responses have been documented in the HPI. ROS Other: All systems not noted in ROS Statement are negative. Past Medical History Past Medical History: Cancer, COPD, Memory Impairment, Pneumonia, Prostate Disorder Additional Past Medical History / Comment(s): abdominal aortic aneurysm, difficulties with memory, history of pnuemothorx price chest tube insertion and pleurodesis. BPH and chronic degenerative arthritis home 02 - 2L, History of Any Multi-Drug Resistant Organisms: None Reported Additional Past Surgical History / Comment(s): spontaneous pneumo thorax (L x1, Rx2) Past Anesthesia/Blood Transfusion Reactions: No Reported Reaction Additional Past Anesthesia/Blood Transfusion Reaction / Comment(s): pt stated he moved here from [place] a year ago. lives alone in apt-no steps. no outside services received. has home 02 /[facility]. no pets. no past service. 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 Past Psychological History: Anxiety, Depression Smoking Status: Current every day smoker Past Alcohol Use History: None Reported Past Drug Use History: None Reported - Past Family History Father History Unknown: Yes Mother Family Medical History: Cancer, Coronary Artery Disease (CAD) Additional Family Medical History / Comment(s): lung cancer, lymphoma. General Exam Limitations: no limitations General appearance: alert, in distress, cachectic Head exam: Present: atraumatic, normocephalic Eye exam: Present: normal appearance, PERRL ENT exam: Present: mucous membranes dry Neck exam: Present: normal inspection. Absent: tenderness, meningismus Respiratory exam: Present: respiratory distress, decreased breath sounds, prolonged expiratory Cardiovascular Exam: Present: regular rate, tachycardia GI/Abdominal exam: Present: soft. Absent: distended, tenderness, guarding Extremities exam: Present: normal inspection, normal capillary refill. Absent: pedal edema, calf tenderness Neurological exam: Present: alert, oriented X3, CN II-XII intact. Absent: motor sensory deficit Psychiatric exam: Present: normal affect, normal mood Skin exam: Present: warm, dry, intact. Absent: cyanosis, diaphoretic Course Vital Signs 05/22/17 05/22/17 05/22/17 15:35 15:58 16:15 Temperature 96.5 F L Pulse Rate 150 H 130 H 113 H Respiratory 32 H 24 24 Rate Blood Pressure 132/61 118/71 O2 Sat by Pulse 90 L 97 Oximetry 05/22/17 05/22/17 05/22/17 16:32 16:50 18:05 Temperature 101.4 F H 100 F H Pulse Rate 110 H 122 H 116 H Respiratory 22 24 24 Rate Blood Pressure 101/62 87/62 O2 Sat by Pulse 98 95 Oximetry EKG Findings - EKG Comments: EKG Findings:: EKG shows sinus tachycardia, right atrial enlargement, left posterior fascicular block, ventricular rate 125, OR interval 1:30, castration 82, QTC 427 T7 elevation Medical Decision Making - Medical Decision Making 51-year-old male presenting with cough, fever, and dyspnea. No chest pain. EKG shows sinus tachycardia, no signs of acute ischemia. Patient denies chest pain. Laboratory studies are obtained, white blood cell count 7.3, hemoglobin 9.5 which appear stable for the patient, electrolytes within normal limits BMP normal, troponin is elevated 0.079. Troponin elevation likely secondary to demand ischemia, patient is given an aspirin, this level will be trended. Chest x-ray shows bilateral infiltrates and hyperexpansion consistent with COPD. Influenza negative. Patient is started on antibiotics for healthcare associated pneumonia. He will be admitted for further treatment of both healthcare associated pneumonia and COPD exacerbation. - Lab Data Result diagrams: 05/22/17 16:09 05/22/17 16:09 Lab Results 05/22/17 05/22/17 05/22/17 Range/Units 16:09 16:09 16:09 WBC 7.3 (3.8-10.6) k/uL RBC 2.87 L (4.30-5.90) m/uL Hgb 9.5 L (13.0-17.5) gm/dL Hct 30.6 L (39.0-53.0) % MCV 106.5 H D (80.0-100.0) fL MCH 33.0 (25.0-35.0) pg MCHC 31.0 (31.0-37.0) g/dL RDW 17.2 H (11.5-15.5) % Plt Count 280 (150-450) k/uL Neutrophils % 74 % Lymphocytes % 18 % Monocytes % 5 % Eosinophils % 0 % Basophils % 0 % Neutrophils # 5.4 (1.3-7.7) k/uL Lymphocytes # 1.3 (1.0-4.8) k/uL Monocytes # 0.4 (0-1.0) k/uL Eosinophils # 0.0 (0-0.7) k/uL Basophils # 0.0 (0-0.2) k/uL Hypochromasia Slight Poikilocytosis Slight Anisocytosis Slight Macrocytosis Marked PT (9.0-12.0) sec INR (<1.2) APTT (22.0-30.0) sec Sodium 138 (137-145) mmol/L Potassium 4.2 (3.5-5.1) mmol/L Chloride 99 (98-107) mmol/L Carbon Dioxide 26 (22-30) mmol/L Anion Gap 13 mmol/L BUN 20 (9-20) mg/dL Creatinine 1.01 (0.66-1.25) mg/dL Est GFR (MDRD) Af Amer >60 (>60 ml/min/1.73 sqM) Est GFR (MDRD) Non-Af >60 (>60 ml/min/1.73 sqM) Glucose 114 H (74-99) mg/dL Calcium 9.5 (8.4-10.2) mg/dL Magnesium 1.8 (1.6-2.3) mg/dL Total Bilirubin 1.1 (0.2-1.3) mg/dL AST 28 (17-59) U/L ALT 21 (21-72) U/L Alkaline Phosphatase 86 (38-126) U/L Total Creatine Kinase 45 L (55-170) U/L CK-MB (CK-2) 0.7 (0.0-2.4) ng/mL CK-MB (CK-2) Rel Index 1.6 Troponin I 0.079 H* (0.000-0.034) ng/mL NT-Pro-B Natriuret Pep pg/mL Total Protein 8.1 (6.3-8.2) g/dL Albumin 3.8 (3.5-5.0) g/dL Influenza Type A RNA (Not Detectd) Influenza Type B (PCR) (Not Detectd) 05/22/17 05/22/17 05/22/17 Range/Units 16:09 16:09 17:20 WBC (3.8-10.6) k/uL RBC (4.30-5.90) m/uL Hgb (13.0-17.5) gm/dL Hct (39.0-53.0) % MCV (80.0-100.0) fL MCH (25.0-35.0) pg MCHC (31.0-37.0) g/dL RDW (11.5-15.5) % Plt Count (150-450) k/uL Neutrophils % % Lymphocytes % % Monocytes % % Eosinophils % % Basophils % % Neutrophils # (1.3-7.7) k/uL Lymphocytes # (1.0-4.8) k/uL Monocytes # (0-1.0) k/uL Eosinophils # (0-0.7) k/uL Basophils # (0-0.2) k/uL Hypochromasia Poikilocytosis Anisocytosis Macrocytosis PT 10.3 (9.0-12.0) sec INR 1.1 (<1.2) APTT 23.9 (22.0-30.0) sec Sodium (137-145) mmol/L Potassium (3.5-5.1) mmol/L Chloride (98-107) mmol/L Carbon Dioxide (22-30) mmol/L Anion Gap mmol/L BUN (9-20) mg/dL Creatinine (0.66-1.25) mg/dL Est GFR (MDRD) Af Amer (>60 ml/min/1.73 sqM) Est GFR (MDRD) Non-Af (>60 ml/min/1.73 sqM) Glucose (74-99) mg/dL Calcium (8.4-10.2) mg/dL Magnesium (1.6-2.3) mg/dL Total Bilirubin (0.2-1.3) mg/dL AST (17-59) U/L ALT (21-72) U/L Alkaline Phosphatase (38-126) U/L Total Creatine Kinase (55-170) U/L CK-MB (CK-2) (0.0-2.4) ng/mL CK-MB (CK-2) Rel Index Troponin I (0.000-0.034) ng/mL NT-Pro-B Natriuret Pep 155 pg/mL Total Protein (6.3-8.2) g/dL Albumin (3.5-5.0) g/dL Influenza Type A RNA Not Detected (Not Detectd) Influenza Type B (PCR) Not Detected (Not Detectd) Critical Care Time Critical Care Time: Yes Total Critical Care Time: 35 Disposition Clinical Impression: Acute exacerbation of chronic obstructive airways disease, Dehydration, Healthcare-associated pneumonia Disposition: ADMITTED IP TO THIS [facility] Condition: Serious Referrals: Yang Corrigan DO [Primary Care Provider] - 1-2 days Decision to Admit Reason: Admit from EC Decision Date: 05/22/17 Decision Time: 18:16
[2017-05-22 16:28] LABS: Albumin 3.8 g/dL (3.5-5.0); Anion Gap 13 mmol/L; Blood Urea Nitrogen 20 mg/dL (9-20); Calcium 9.5 mg/dL (8.4-10.2); Carbon Dioxide 26 mmol/L (22-30); Chloride 99 mmol/L (98-107); Glucose 114 mg/dL (74-99); Potassium 4.2 mmol/L (3.5-5.1); Sodium 138 mmol/L (137-145); Total Bilirubin 1.1 mg/dL (0.2-1.3); Total Protein 8.1 g/dL (6.3-8.2)
[2017-05-22 16:29] LABS: INR 1.1 (<1.2); Partial Thromboplastin Time 23.9 sec (22.0-30.0); Prothrombin Time 10.3 sec (9.0-12.0)
[2017-05-22 16:35] LABS: Anisocytosis Slight; Hypochromasia Slight; Macrocytosis Marked; Poikilocytosis Slight
[2017-05-22 16:36] LABS: ALT 21 U/L (21-72); AST 28 U/L (17-59); Alkaline Phosphatase 86 U/L (38-126); Basophils % (A) 0 %; Eosinophils % (A) 0 %; HCT 30.6 % (39.0-53.0); HGB 9.5 gm/dL (13.0-17.5); Lymphocytes # (A) 1.3 k/uL (1.0-4.8); Lymphocytes % (A) 18 %; Magnesium 1.8 mg/dL (1.6-2.3); Mean Platelet Volume 7.2; Monocytes # (A) 0.4 k/uL (0-1.0); Monocytes % (A) 5 %; Neutrophils # (A) 5.4 k/uL (1.3-7.7); Neutrophils % (A) 74 %; Platelet Count 280 k/uL (150-450); RBC 2.87 m/uL (4.30-5.90); RDW 17.2 % (11.5-15.5); WBC 7.3 k/uL (3.8-10.6)
[2017-05-22 16:39] LABS: MCV 106.5 fL (80.0-100.0)
[2017-05-22] MEDS ORDERED: ONDANSETRON 4 MG/2 ML VIAL IVP STA (16:47)
[2017-05-22] MEDS ORDERED: ACETAMINOPHEN TAB 500 MG TAB PO STA (16:55)
[2017-05-22 16:56] LABS: Creatine Kinase MB 0.7 ng/mL (0.0-2.4)
[2017-05-22 17:03] LABS: Troponin I 0.079 ng/mL (0.000-0.034)
[2017-05-22] MEDS ORDERED: SODIUM CHLORIDE 0.9% 500 ML IV ONE (17:12)
--- NOTE | 2017-05-22 17:35 | XR ---
EXAMINATION TYPE: XR chest 2V DATE OF EXAM: 05/22/2017 COMPARISON: 04/16/2017 HISTORY: Short of breath and cough TECHNIQUE: Frontal and lateral views of the chest are obtained. FINDINGS: There are bilateral extensive patchy pneumonic infiltrates. This is worse in the upper lob es. There could be some cavitation in the right upper lobe. There is slight blunting of right costoph renic angle. Heart size is normal. There are chest leads. The bony thorax appears intact. IMPRESSION: Extensive bilateral pulmonary infiltrates. COPD. Extensive upper lobe scarring. There is clearing of the subcutaneous emphysema over the right upper chest compared to old exam. There is upp er lobe bullous emphysema and cavity in the right upper lobe cannot be excluded. The lung disease is probably not changed compared to old exam.
[2017-05-22] MEDS ORDERED: HYDROcodone/APAP 10-325MG 1 EACH TAB PO ONE (18:07)
[2017-05-22] MEDS ORDERED: ASPIRIN 325 MG TAB PO STA (18:08)
[2017-05-22] MEDS ORDERED: ACETAMINOPHEN TAB 325 MG TAB PO PRN (18:09)
[2017-05-22] MEDS ORDERED: VANCOMYCIN IV PER PHARMACY 1 EACH MISC MISCELLANE PRN (18:09)
[2017-05-22] MEDS ORDERED: NALOXONE 0.4 MG/ML 1 ML VIAL IV PRN (18:09)
[2017-05-22] MEDS ORDERED: IPRATROPIUM-ALBUTEROL 3 ML NEB INHALATION PRN (18:09)
[2017-05-22] MEDS ORDERED: CEFEPIME 2 GM in SODIUM CHLORIDE 0.9% 50 ML IVPB STA (18:10)
[2017-05-22] MEDS ORDERED: ALBUTEROL NEBULIZED 2.5 MG/3 ML INHALATION PRN (18:14)
[2017-05-22] MEDS ORDERED: VANCOMYCIN 1,500 MG in SODIUM CHLORIDE 0.9% 250 ML IVPB ONE (18:30)
[2017-05-22] MEDS ORDERED: IPRATROPIUM 0.5 MG/2.5 ML NEBU INHALATION SCH (20:00)
[2017-05-22 20:22] LABS: Glucose,Whole Blood 156 mg/dL (75-99)
[2017-05-22] MEDS: IPRATROPIUM-ALBUTEROL 3 ML NEB INHALATION SCH (20:38)
[2017-05-22 21:13] VITALS: BMI 17.9
[2017-05-22 22:22] LABS: Creatine Kinase MB 0.6 ng/mL (0.0-2.4)
[2017-05-22 22:28] LABS: Troponin I 0.073 ng/mL (0.000-0.034)
[2017-05-22] MEDS: buPROPion 100 MG TAB PO SCH (22:30)
[2017-05-22] MEDS: NICOTINE 14MG/24HR PATCH TRANSDERM SCH (22:31)
[2017-05-22] MEDS: methylPREDNISolone SOD SUCCI 125 MG/2 ML VIAL IV SCH (23:54)
[2017-05-22] MEDS: CEFEPIME 2 GM in SODIUM CHLORIDE 0.9% 50 ML IVPB SCH (23:54)
[2017-05-23] MEDS: HYDROcodone/APAP 5-325MG 1 EACH TAB PO PRN ×5 (00:11→21:37)
[2017-05-23 04:37] LABS: Anisocytosis Slight; Basophils % (A) 0 %; Eosinophils % (A) 0 %; HCT 26.5 % (39.0-53.0); Hypochromasia Marked; Lymphocytes # (A) 0.8 k/uL (1.0-4.8); Lymphocytes % (A) 17 %; MCHC 30.3 g/dL (31.0-37.0); MCV 108.9 fL (80.0-100.0); Mean Platelet Volume 7.9; Monocytes # (A) 0.1 k/uL (0-1.0); Monocytes % (A) 2 %; Neutrophils # (A) 3.6 k/uL (1.3-7.7); Neutrophils % (A) 80 %; Platelet Count 257 k/uL (150-450); Poikilocytosis Slight; RBC 2.43 m/uL (4.30-5.90); WBC 4.5 k/uL (3.8-10.6)
[2017-05-23 04:41] LABS: Macrocytosis Marked
[2017-05-23 04:50] LABS: ALT 37 U/L (21-72); AST 25 U/L (17-59); Albumin 3.2 g/dL (3.5-5.0); Alkaline Phosphatase 89 U/L (38-126); Anion Gap 9 mmol/L; Blood Urea Nitrogen 20 mg/dL (9-20); Calcium 8.7 mg/dL (8.4-10.2); Carbon Dioxide 24 mmol/L (22-30); Chloride 103 mmol/L (98-107); Glucose 138 mg/dL (74-99); Magnesium 1.8 mg/dL (1.6-2.3); Potassium 4.5 mmol/L (3.5-5.1); Sodium 136 mmol/L (137-145); Total Bilirubin 0.5 mg/dL (0.2-1.3); Total Protein 6.9 g/dL (6.3-8.2)
[2017-05-23] MEDS: methylPREDNISolone SOD SUCCI 125 MG/2 ML VIAL IV SCH ×3 (05:20→18:25)
[2017-05-23 05:24] LABS: Creatine Kinase MB 0.7 ng/mL (0.0-2.4)
[2017-05-23 05:34] LABS: Troponin I 0.043 ng/mL (0.000-0.034)
[2017-05-23] MEDS ORDERED: VANCOMYCIN 1,250 MG in SODIUM CHLORIDE 0.9% 250 ML IVPB SCH (06:00)
--- NOTE | 2017-05-23 08:39 | XR ---
EXAMINATION TYPE: XR chest 1V DATE OF EXAM: 05/23/2017 COMPARISON: 05/22/2017 HISTORY: 51-year-old male COPD TECHNIQUE: Single frontal view of the chest is obtained. FINDINGS: Heart normal size. Cavitary and bullous changes at the apices, right greater than left with surgical material on the right. Upward retraction of the right hilum compatible with volume loss here. Some in creasing patchy density peripheral right upper lobe with some interval clearance elsewhere within the lungs. Mild diffuse interstitial prominence and hyperinflation persists. IMPRESSION: COPD with bullous emphysema and redemonstrated cavitary changes with volume loss at the right apex. T here may be slight increased patchy infiltrate here. Relatively improving aeration elsewhere within t he lungs.
[2017-05-23] MEDS: NICOTINE 14MG/24HR PATCH TRANSDERM SCH (08:50)
[2017-05-23] MEDS: buPROPion 100 MG TAB PO SCH ×2 (08:50→20:40)
[2017-05-23] MEDS: IPRATROPIUM-ALBUTEROL 3 ML NEB INHALATION SCH ×4 (09:26→20:49)
[2017-05-23] MEDS: SENNOSIDES 8.6 MG TAB PO SCH (10:05)
[2017-05-23] MEDS: SODIUM CHLORIDE 0.9% 1,000 ML IV SCH ×2 (10:05→20:56)
[2017-05-23] MEDS: LEVOFLOXACIN 750 MG TAB PO SCH (10:05)
--- NOTE | 2017-05-23 10:23 | P.CNPUL ---
History of Present Illness Consult date: 05/23/17 Requesting physician: Blake Cherry Reason for consult: dyspnea Chief complaint: Shortness of breath History of present illness: This is a very pleasant 51-year-old gentleman who follows with Dr. Corrigan with a known history of aortic aneurysm, previous bilateral pneumothoraces at a young age requiring chest tube insertions and pleurodesis, benign prosthetic hypertrophy, chronic degenerative arthritis and hip pain on the right, benign prosthetic hypertrophy,. He also has a history of chronic and ongoing tobacco dependence along with chronic obstructive pulmonary disease and follows with Dr. Latham in our office for the same. He has had several admissions for COPD exacerbations. He presented here to the emergency room again yesterday with complaints of increasing shortness of breath, cough and congestion. His chest x -ray shows areas of chronic changes but no acute pulmonary infiltrates or pneumonia. He is seen today in consultation in the intensive care unit as a selective care unit overflow patient. He is awake and alert in no acute distress. He is maintaining good O2 saturations in the mid 90s on 3 L/m per nasal cannula. He is not tachycardic. No tachypnea. Afebrile. Cytosis. He does have chronic anemia and current hemoglobin is 8.0. Influenza screen is negative. Review of Systems 14 point review of system was conducted. All negative other than as mentioned in HPI. Past Medical History Past Medical History: Cancer, COPD, Memory Impairment, Pneumonia, Prostate Disorder Additional Past Medical History / Comment(s): abdominal aortic aneurysm, difficulties with memory, history of pnuemothorx price chest tube insertion and pleurodesis. 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 lives alone in apt-no steps. no outside services received. has home 02 /[employer]. no pets. no past service. 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 Past Psychological History: Anxiety, Depression Additional Psychological History / Comment(s): .(continues to smoke 1 ppd). As noted continues to smoke despite his oxygen-dependent COPD. No experience. No international travel. No animal exposures. Is not and has no children Smoking Status: Current some day smoker Past Alcohol Use History: None Reported Additional Past Alcohol Use History / Comment(s): States trying to quit smoking. Past Drug Use History: None Reported - Past Family History Father History Unknown: Yes Mother Family Medical History: Cancer, Coronary Artery Disease (CAD) Additional Family Medical History / Comment(s): lung cancer, lymphoma. Medications and Allergies Home Medications Medication Instructions Recorded Confirmed Type Fluticasone/Salmeterol [Advair 1 puff INHALATION RT-BID 10/09/16 05/22/17 History 250-50 Diskus] Tiotropium 18 Mcg/Puff [Spiriva] 1 cap INHALATION RT-DAILY 10/09/16 05/22/17 History HYDROcodone/APAP 10-325MG [[place] 1 tab PO QID 01/05/17 05/22/17 History 10-325] Montelukast [Singulair] 10 mg PO HS 01/05/17 05/22/17 History Multivit-Min/FA/Lycopen/Lutein 1 tab PO DAILY 01/27/17 05/22/17 History [Centrum Silver Men Tablet] Ipratropium-Albuterol Nebulize 3 ml INHALATION RT-QID PRN 03/25/17 05/22/17 History [Duoneb 0.5 mg-3 mg/3 ml Soln] buPROPion HCL [Wellbutrin SR] 100 mg PO BID 03/30/17 05/22/17 History Epoetin Joe [Procrit] 20,000 unit INJ WE 05/22/17 05/22/17 History Allergies Allergy/AdvReac Type Severity Reaction Status Date / Time No Known Allergies Allergy Verified 05/22/17 16:37 Physical Exam Vitals: Vital Signs Temp Pulse Resp BP Pulse Ox 05/23/17 09:28 97 05/23/17 09:26 83 05/23/17 08:00 97.5 F L 77 23 107/64 95 05/23/17 04:00 98.1 F 81 27 H 95/61 97 05/23/17 03:46 85 05/23/17 03:00 84 27 H 97 05/23/17 02:00 79 24 97 05/23/17 01:00 81 30 H 107/62 97 05/23/17 00:00 97.8 F 83 30 H 95 05/22/17 23:00 92 32 H 98 05/22/17 22:00 89 36 H 98 05/22/17 21:00 97.8 F 96 35 H 99/51 99 05/22/17 20:53 92 05/22/17 20:38 78 98 05/22/17 19:31 98.5 F 99 24 99/63 96 05/22/17 18:21 107 H 22 107/61 99 05/22/17 18:05 100 F H 116 H 24 87/62 95 05/22/17 16:50 101.4 F H 122 H 24 101/62 98 05/22/17 16:32 110 H 22 05/22/17 16:15 113 H 24 05/22/17 15:58 130 H 24 118/71 97 05/22/17 15:35 96.5 F L 150 H 32 H 132/61 90 L Intake and Output 05/22/17 05/23/17 05/23/17 22:59 06:59 14:59 Intake Total 720 375 Output Total 775 Balance 720 -400 Intake: IV 75 Sodium Chloride 0.9% 1, 75 000 ml @ 75 mls/hr IV . [id number] STA Rx#:[id number] Oral 720 300 Output: Urine 775 Other: Voiding Method Toilet Urinal Weight 61.8 kg GENERAL EXAM: Alert, active, comfortable in no apparent distress. HEAD: Normocephalic. EYES: Normal reaction of pupils, equal size. NOSE: Clear with pink turbinates. THROAT: No erythema or exudates. NECK: No masses, no JVD. CHEST: No chest wall deformity. LUNGS: Equal air entry with faint end expiratory wheeze. Diminished. CVS: S1 and S2 normal with no audible murmur, regular rhythm. ABDOMEN: No hepatosplenomegaly, normal bowel sounds, no guarding or rigidity. SPINE: No scoliosis or deformity SKIN: No rashes CENTRAL NERVOUS SYSTEM: No focal deficits, tone is normal in all 4 extremities. EXTREMITIES: There is no peripheral edema. No clubbing, no cyanosis. Peripheral pulses are intact. Results - Laboratory Findings CBC and BMP: 05/23/17 04:17 05/23/17 04:17 PT/INR, D-dimer PT 10.3 sec (9.0-12.0) 05/22/17 16:09 INR 1.1 (<1.2) 05/22/17 16:09 Abnormal lab findings: Abnormal Labs 05/22/17 05/22/17 05/22/17 16:09 16:09 16:09 RBC 2.87 L Hgb 9.5 L Hct 30.6 L MCV 106.5 H D MCHC RDW 17.2 H Lymphocytes # Sodium Glucose 114 H POC Glucose (mg/dL) Total Creatine Kinase 45 L Troponin I 0.079 H* Albumin 05/22/17 05/22/17 05/23/17 20:20 21:34 04:17 RBC 2.43 L Hgb 8.0 L D Hct 26.5 L MCV 108.9 H MCHC 30.3 L RDW 17.0 H Lymphocytes # 0.8 L Sodium Glucose POC Glucose (mg/dL) 156 H Total Creatine Kinase 42 L Troponin I 0.073 H* Albumin 05/23/17 05/23/17 04:17 04:17 RBC Hgb Hct MCV MCHC RDW Lymphocytes # Sodium 136 L Glucose 138 H POC Glucose (mg/dL) Total Creatine Kinase 43 L Troponin I 0.043 H* Albumin 3.2 L - Diagnostic Findings Chest x-ray: image reviewed Assessment and Plan Assessment: Impression: #1 Acute exacerbation of severe oxygen dependent chronic obstructive pulmonary disease. #2 Multiple admissions for COPD exacerbations. #3 Chronic and ongoing tobacco dependence at 1 pack a day for greater than 35 years. #4 Macrocytic anemia, status post bone marrow biopsy, follows with hematology. He gets weekly Epogen #5 Previous history of spontaneous pneumothorax requiring chest tube placements and pleurodesis. #6 History of benign prostatic hypertrophy. #7 Chronic degenerative arthritis. #8 History of anxiety/depression. #9 History of abdominal aortic aneurysm. Plan: The patient was seen and evaluated by Dr. Ruiz. His chest x-ray was reviewed. Looking back these changes are chronic. No acute pulmonary infiltrates. We will continue his treatment for the COPD exacerbation including IV Solu-Medrol, DuoNeb inhalations, Pulmicort inhalations. He'll remain on empiric antibiotics in the form of Levaquin. He could be transferred to the general medical floor once a bed becomes available. We will increase his activity as tolerated. We' ll continue to follow. I, the cosigning physician, performed a history & physical examination of the patient. Lungs sounds have faint end expiratory wheeze bilaterally. Diminished. Maintaining good O2 saturations in the 90s on 3 L/m trip per nasal cannula. I discussed the assessment and plan of care with my nurse practitioner , Fadia Mc. I attest to the above note as dictated by her. Time with Patient: Greater than 30
--- NOTE | 2017-05-23 11:38 | CDI ---
Last Revision, April 2017 Documentation Clarification Form Date: 05/23/2017 11:11:00 AM From: Ankita Salter RN, CCDS Admit Date: 05/22/2017 6:09:00 PM Patient Name: Wicho Burrows Visit Number: [id number] Discharge Date: ATTENTION: The Clinical Documentation Specialists (CDI) and [facility] Coding Staff appreciate your assistance in clarifying documentation. Please respond to the clarification below the line at the bottom and electronically sign. The CDI & [facility] Coding staff will review the response and follow-up if needed. Please note: Queries are made part of the Legal Health Record. If you have any questions, please contact the author of this message via ITS. Dr. Louis Ruiz/Fadia DENTON The patient presented with the following respiratory symptoms: Shortness of breath, cough and dyspnea. History/Risk Factors: COPD, Spontaneous pneumothorax, Tobacco use: Current every day smoker Home oxygen: 2/L NC Clinical Indicators: Present with respiratory distress, decreased breath sounds prolonged expiratory, labored Vital signs: 132/61 150 32 96.5 Pulse oximetry: 90 % 3/L, 97 % 3/L Treatment: Monitor O2 Sat's (titrate O2) Duoneb Inhalation treatments Solu-Medrol IV In your professional opinion, can you please clarify if these findings signify one of the following conditions? Acuity: Acute Chronic Acute on Chronic Specificity: Respiratory Failure, further specify (if known): With hypercapnia? With hypoxia? Other Diagnosis, please specify Unable to determine Please continue to document in your progress notes and discharge summary in order to capture severity of illness and risk of mortality. Include clinical findings that support your diagnosis. MTDD
--- NOTE | 2017-05-23 14:32 | P.HPIM ---
History of Present Illness H&P Date: 05/23/17 Chief Complaint: Shortness of breath Patient is a 51-year-old male with a known history of COPD on home oxygen, history of pneumothorax and aortic aneurysm and BPH came to ER with complaints of worsening shortness of breath along with cough and congestion. Patient is being followed by visiting physician at home and was told that he was having crackles on lung examination. Patient had several admissions for COPD exacerbation. Last admission was about a month back. Patient does have cough with whitish to green sputum production. Patient otherwise denied any fever or chills. No sick contacts at home. No nausea vomiting no abdominal pain no diarrhea. Chest x-ray showed chronic changes but no acute cardio pulmonary process. Showed COPD with bullous emphysema and redemonstrated cavitary changes with volume loss at the right apex Review of Systems Constitutional: Patient denies any fever or chills . No generalized weakness or weight loss. Abdomen: Patient denied nausea vomiting and diarrhea and abdominal pain. Cardiovascular: Patient denies any chest pain or short of breath no palpitations. Respiratory: Cough with minimal sputum production. And shortness of breath.. Neurologic: Patient denied any numbness or tingling headache. Musculoskeletal: Patient denies any complaints of joint swelling or deformity. Skin: Negative Psychiatric: Negative Endocrine: No heat or cold intolerance. No recent weight gain. Genitourinary: No dysuria or hematuria. All other 14 point ROS negative except the above Past Medical History Past Medical History: Cancer, COPD, Memory Impairment, Pneumonia, Prostate Disorder Additional Past Medical History / Comment(s): abdominal aortic aneurysm, difficulties with memory, history of pnuemothorx price chest tube insertion and pleurodesis. 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 lives alone in apt-no steps. no outside services received. has home 02 /concnetrator. no pets. no past service. 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 Past Psychological History: Anxiety, Depression Additional Psychological History / Comment(s): .(continues to smoke 1 ppd). As noted continues to smoke despite his oxygen-dependent COPD. No experience. No international travel. No animal exposures. Is not and has no children Smoking Status: Current some day smoker Past Alcohol Use History: None Reported Additional Past Alcohol Use History / Comment(s): States trying to quit smoking. Past Drug Use History: None Reported - Past Family History Father History Unknown: Yes Mother Family Medical History: Cancer, Coronary Artery Disease (CAD) Additional Family Medical History / Comment(s): lung cancer, lymphoma. Medications and Allergies Home Medications Medication Instructions Recorded Confirmed Type Fluticasone/Salmeterol [Advair 1 puff INHALATION RT-BID 10/09/16 05/22/17 History 250-50 Diskus] Tiotropium 18 Mcg/Puff [Spiriva] 1 cap INHALATION RT-DAILY 10/09/16 05/22/17 History HYDROcodone/APAP 10-325MG [[place] 1 tab PO QID 01/05/17 05/22/17 History 10-325] Montelukast [Singulair] 10 mg PO HS 01/05/17 05/22/17 History Multivit-Min/FA/Lycopen/Lutein 1 tab PO DAILY 01/27/17 05/22/17 History [Centrum Silver Men Tablet] Ipratropium-Albuterol Nebulize 3 ml INHALATION RT-QID PRN 03/25/17 05/22/17 History [Duoneb 0.5 mg-3 mg/3 ml Soln] buPROPion HCL [Wellbutrin SR] 100 mg PO BID 03/30/17 05/22/17 History Epoetin Joe [Procrit] 20,000 unit INJ WE 05/22/17 05/22/17 History Allergies Allergy/AdvReac Type Severity Reaction Status Date / Time No Known Allergies Allergy Verified 05/22/17 16:37 Physical Exam Vitals: Vital Signs Temp Pulse Resp BP Pulse Ox 05/23/17 09:28 97 05/23/17 09:26 83 05/23/17 08:00 97.5 F L 77 23 107/64 95 05/23/17 04:00 98.1 F 81 27 H 95/61 97 05/23/17 03:46 85 05/23/17 03:00 84 27 H 97 05/23/17 02:00 79 24 97 05/23/17 01:00 81 30 H 107/62 97 05/23/17 00:00 97.8 F 83 30 H 95 05/22/17 23:00 92 32 H 98 05/22/17 22:00 89 36 H 98 05/22/17 21:00 97.8 F 96 35 H 99/51 99 05/22/17 20:53 92 05/22/17 20:38 78 98 05/22/17 19:31 98.5 F 99 24 99/63 96 05/22/17 18:21 107 H 22 107/61 99 05/22/17 18:05 100 F H 116 H 24 87/62 95 05/22/17 16:50 101.4 F H 122 H 24 101/62 98 05/22/17 16:32 110 H 22 05/22/17 16:15 113 H 24 05/22/17 15:58 130 H 24 118/71 97 05/22/17 15:35 96.5 F L 150 H 32 H 132/61 90 L Intake and Output 05/22/17 05/23/17 05/23/17 22:59 06:59 14:59 Intake Total 720 375 Output Total 775 300 Balance 720 -400 -300 Intake: IV 75 Sodium Chloride 0.9% 1, 75 000 ml @ 75 mls/hr IV . [id number] [facility] Rx#:[id number] Oral 720 300 Output: Urine 775 300 Other: Voiding Method Toilet Toilet Urinal Urinal Weight 61.8 kg PHYSICAL EXAMINATION: Patient is lying in the bed comfortably, no acute distress, awake alert and oriented.. HEENT: Normocephalic. Neck is supple. Pupils reactive. Nostrils clear. Oral cavity is moist. Ears reveal no drainage. Neck reveals no JVD, carotid bruits, or thyromegaly. CHEST EXAMINATION: Trachea is central. Symmetrical expansion. Diminished air entry and expiratory wheezing positive. Rhonchi present CARDIAC: Normal S1, S2 with no gallops. No murmurs ABDOMEN: Soft. Bowel sounds normal. No organomegaly. No abdominal bruits. Extremities: reveal no edema. No clubbing or cyanosis Neurologically awake, alert, oriented x3 with well-coordinated movements. No focal deficits noted Skin: No rash or skin lesions. Psychiatric: Coperative. Nonsuicidal Musculoskeletal: No joint swelling or deformity. Normal range of motion. Results CBC & Chem 7: 05/23/17 04:17 05/23/17 04:17 Labs: Abnormal Lab Results - Last 24 Hours (Table) 05/22/17 05/22/17 05/22/17 Range/Units 16:09 16:09 16:09 RBC 2.87 L (4.30-5.90) m/uL Hgb 9.5 L (13.0-17.5) gm/dL Hct 30.6 L (39.0-53.0) % MCV 106.5 H D (80.0-100.0) fL MCHC (31.0-37.0) g/dL RDW 17.2 H (11.5-15.5) % Lymphocytes # (1.0-4.8) k/uL Sodium (137-145) mmol/L Glucose 114 H (74-99) mg/dL POC Glucose (mg/dL) (75-99) mg/dL Total Creatine Kinase 45 L (55-170) U/L Troponin I 0.079 H* (0.000-0.034) ng/mL Albumin (3.5-5.0) g/dL 05/22/17 05/22/17 05/23/17 Range/Units 20:20 21:34 04:17 RBC 2.43 L (4.30-5.90) m/uL Hgb 8.0 L D (13.0-17.5) gm/dL Hct 26.5 L (39.0-53.0) % MCV 108.9 H (80.0-100.0) fL MCHC 30.3 L (31.0-37.0) g/dL RDW 17.0 H (11.5-15.5) % Lymphocytes # 0.8 L (1.0-4.8) k/uL Sodium (137-145) mmol/L Glucose (74-99) mg/dL POC Glucose (mg/dL) 156 H (75-99) mg/dL Total Creatine Kinase 42 L (55-170) U/L Troponin I 0.073 H* (0.000-0.034) ng/mL Albumin (3.5-5.0) g/dL 05/23/17 05/23/17 Range/Units 04:17 04:17 RBC (4.30-5.90) m/uL Hgb (13.0-17.5) gm/dL Hct (39.0-53.0) % MCV (80.0-100.0) fL MCHC (31.0-37.0) g/dL RDW (11.5-15.5) % Lymphocytes # (1.0-4.8) k/uL Sodium 136 L (137-145) mmol/L Glucose 138 H (74-99) mg/dL POC Glucose (mg/dL) (75-99) mg/dL Total Creatine Kinase 43 L (55-170) U/L Troponin I 0.043 H* (0.000-0.034) ng/mL Albumin 3.2 L (3.5-5.0) g/dL Thrombosis Risk Factor Assmnt - DVT/VTE Prophylaxis DVT/VTE Prophylaxis: Pharmacologic Prophylaxis ordered - Choose All That Apply Any of the Below Risk Factors Present?: Yes Each Factor Represents 1 point: Abnormal pulmonary function (COPD), Age 41-60 years Other Risk Factors: No Other congenital or acquired thrombophilia - If yes, enter type in comment: No Thrombosis Risk Factor Assessment Total Risk Factor Score: 2 Thrombosis Risk Factor Assessment Level: Low Risk Assessment and Plan Assessment: #1 acute COPD exacerbation #2 chronic hypoxic respiratory failure on oxygen-dependent #3 history of spontaneous pneumothorax requiring chest tube placement and pleurodesis #4 [place]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 Pulmonary is following. continued on antibiotics in the form of levofloxacin. Smoking cessation has been counseled extensively. Further recommendations based on the clinical course. seems clinically improving. Time with Patient: Greater than 30
[2017-05-23] MEDS: HEPARIN SODIUM,PORCINE 5,000 UNIT/ML 1 ML VIAL SQ SCH (20:40)
[2017-05-23] MEDS: CEFEPIME 2 GM in SODIUM CHLORIDE 0.9% 50 ML IVPB SCH (21:21)
[2017-05-24] MEDS: methylPREDNISolone SOD SUCCI 125 MG/2 ML VIAL IV SCH ×4 (00:03→17:37)
[2017-05-24] MEDS: HYDROcodone/APAP 5-325MG 1 EACH TAB PO PRN ×4 (06:02→21:39)
[2017-05-24] MEDS: LEVOFLOXACIN 750 MG TAB PO SCH (07:56)
[2017-05-24] MEDS: SENNOSIDES 8.6 MG TAB PO SCH (07:56)
[2017-05-24] MEDS: HEPARIN SODIUM,PORCINE 5,000 UNIT/ML 1 ML VIAL SQ SCH ×2 (07:57→19:58)
[2017-05-24] MEDS: NICOTINE 14MG/24HR PATCH TRANSDERM SCH (07:57)
[2017-05-24] MEDS: buPROPion 100 MG TAB PO SCH ×2 (07:57→19:58)
[2017-05-24] MEDS: IPRATROPIUM-ALBUTEROL 3 ML NEB INHALATION SCH ×4 (08:10→21:06)
--- NOTE | 2017-05-24 08:16 | XR ---
EXAMINATION TYPE: XR chest 1V DATE OF EXAM: 05/24/2017 HISTORY: COPD. REFERENCE: Previous study dated 05/23/2017. FINDINGS: The lungs are overinflated. There is apical scarring present bilaterally, worse on the righ t than the left. I cannot exclude a developing right upper lobe pneumonia. There is underlying inters titial fibrosis. The heart is not enlarged. No definite pleural fluid is seen. IMPRESSION: 1. COPD. 2. APICAL SCARRING. 3. I CANNOT EXCLUDE A RIGHT UPPER LOBE INFILTRATE.
[2017-05-24] MEDS: SODIUM CHLORIDE 0.9% 1,000 ML IV SCH ×2 (08:57→21:39)
--- NOTE | 2017-05-24 13:30 | P.PN ---
Subjective Progress Note Date: 05/24/17 Principal diagnosis: Acute exacerbation of severe oxygen dependent chronic obstructive pulmonary disease. This is a very pleasant 51-year-old gentleman who follows with Dr. Corrigan with a known history of aortic aneurysm, previous bilateral pneumothoraces at a young age requiring chest tube insertions and pleurodesis, benign prosthetic hypertrophy, chronic degenerative arthritis and hip pain on the right, benign prosthetic hypertrophy,. He also has a history of chronic and ongoing tobacco dependence along with chronic obstructive pulmonary disease and follows with Dr. Latham in our office for the same. He has had several admissions for COPD exacerbations. He presented here to the emergency room again yesterday with complaints of increasing shortness of breath, cough and congestion. His chest x -ray shows areas of chronic changes but no acute pulmonary infiltrates or pneumonia. He is seen today in consultation in the intensive care unit as a selective care unit overflow patient. He is awake and alert in no acute distress. He is maintaining good O2 saturations in the mid 90s on 3 L/m per nasal cannula. He is not tachycardic. No tachypnea. Afebrile. Cytosis. He does have chronic anemia and current hemoglobin is 8.0. Influenza screen is negative. Patient is seen again today 05/24/2017 on the regular medical floor. He is awake and alert in no acute distress. He is breathing easier today as compared to yesterday. Still not quite back to his baseline. He has a loose nonproductive cough. No chills or night sweats. He is dyspneic with minimal exertion. His chest x-ray continues to show evidence of chronic obstructive pulmonary disease and chronic apical scarring including the right upper lobe. Blood culture reveals no growth to date. No leukocytosis. Hemoglobin 8.0. He has been afebrile. Maintaining good O2 saturations in the high 90s on 3 L/m per nasal cannula. Hemodynamically stable. Objective - Vital Signs Vital signs: Vital Signs Temp 97.5 F L 05/24/17 07:00 Pulse 90 05/24/17 11:14 Resp 18 05/24/17 07:00 BP 112/57 05/24/17 07:00 Pulse Ox 99 05/24/17 07:00 Intake & Output 05/23/17 05/24/17 05/24/17 18:59 06:59 18:59 Intake Total 525 700 Output Total 300 Balance 225 700 Intake: Intake, IV Titration 525 600 Amount Sodium Chloride 0.9% 1, 525 600 000 ml @ 75 mls/hr IV . [id number] [facility] Rx#:[id number] Oral 100 Output: Urine 300 Other: Voiding Method Toilet Toilet Toilet Urinal Urinal # Voids 1 - Exam GENERAL EXAM: Alert, active, comfortable in no apparent distress. HEAD: Normocephalic. EYES: Normal reaction of pupils, equal size. NOSE: Clear with pink turbinates. THROAT: No erythema or exudates. NECK: No masses, no JVD. CHEST: No chest wall deformity. LUNGS: Equal air entry with faint end expiratory wheeze. Diminished. CVS: S1 and S2 normal with no audible murmur, regular rhythm. ABDOMEN: No hepatosplenomegaly, normal bowel sounds, no guarding or rigidity. SPINE: No scoliosis or deformity SKIN: No rashes CENTRAL NERVOUS SYSTEM: No focal deficits, tone is normal in all 4 extremities. EXTREMITIES: There is no peripheral edema. No clubbing, no cyanosis. Peripheral pulses are intact. - Labs CBC & Chem 7: 05/23/17 04:17 05/23/17 04:17 Labs: Microbiology - Last 24 Hours (Table) 05/22/17 16:09 Blood Culture - Preliminary Blood No Growth after 24 hours Assessment and Plan Assessment: Impression: #1 Acute exacerbation of severe oxygen dependent chronic obstructive pulmonary disease. #2 Acute on chronic hypoxic respiratory failure secondary to above. #3 Chronic and ongoing tobacco dependence at 1 pack a day for greater than 35 years. #4 Macrocytic anemia, status post bone marrow biopsy, follows with hematology. He gets weekly Epogen #5 Previous history of spontaneous pneumothorax requiring chest tube placements and pleurodesis. #6 History of benign prostatic hypertrophy. #7 Chronic degenerative arthritis. #8 History of anxiety/depression. #9 History of abdominal aortic aneurysm. Plan: The patient was seen and evaluated by Dr. Ruiz. His chest x-ray was reviewed. Looking back these changes are chronic. No acute pulmonary infiltrates. We will continue his treatment for the COPD exacerbation including IV Solu-Medrol, DuoNeb inhalations, Pulmicort inhalations. He'll remain on empiric antibiotics in the form of Levaquin. We will increase his activity as tolerated. We'll continue to follow. I, the cosigning physician, performed a history & physical examination of the patient. Lungs sounds have faint end expiratory wheeze bilaterally. Diminished. Maintaining good O2 saturations in the 90s on 3 L/m trip per nasal cannula. I discussed the assessment and plan of care with my nurse practitioner , Fadia Mc. I attest to the above note as dictated by her.
[2017-05-25] MEDS: methylPREDNISolone SOD SUCCI 125 MG/2 ML VIAL IV SCH ×3 (00:50→12:35)
[2017-05-25] MEDS: HYDROcodone/APAP 5-325MG 1 EACH TAB PO PRN ×5 (03:51→21:06)
[2017-05-25] MEDS: IPRATROPIUM-ALBUTEROL 3 ML NEB INHALATION SCH ×4 (07:29→20:26)
[2017-05-25] MEDS: buPROPion 100 MG TAB PO SCH ×2 (08:23→20:58)
[2017-05-25] MEDS: LEVOFLOXACIN 750 MG TAB PO SCH (08:23)
[2017-05-25] MEDS: SENNOSIDES 8.6 MG TAB PO SCH (08:24)
[2017-05-25] MEDS: NICOTINE 14MG/24HR PATCH TRANSDERM SCH (08:24)
[2017-05-25] MEDS: HEPARIN SODIUM,PORCINE 5,000 UNIT/ML 1 ML VIAL SQ SCH ×2 (08:24→20:57)
--- NOTE | 2017-05-25 13:55 | P.PN ---
Subjective Progress Note Date: 05/25/17 Principal diagnosis: Shortness of breath Progress note dated 05/25/2017 This is a very pleasant 51-year-old male looks much older than his stated age, who is admitted with a diagnosis of COPD exacerbation hypoxemic respiratory failure chronic and ongoing tobacco dependence macrocytic anemia spontaneous pneumothorax BPH DJD anxiety/depression and abdominal aortic aneurysm. Chest x- ray has mostly chronic changes. The radiologist keep on talking about changes in the right upper lobe which is where most of the chronic changes are. I don' t believe he has an acute pneumonia but rather an acute tracheobronchitis. Nonetheless, the patient is improved. Less short of breath. Less congestion. Less cough. Less phlegm production. Most of the shortness of breath occurs when he exerts himself. Objective - Vital Signs Vital signs: Vital Signs Temp 97.9 F 05/25/17 07:00 Pulse 86 05/25/17 12:03 Resp 16 05/25/17 08:00 BP 108/67 05/25/17 07:00 Pulse Ox 100 05/25/17 07:31 Intake & Output 05/24/17 05/25/17 05/25/17 18:59 06:59 18:59 Intake Total 1400 Output Total 500 900 Balance -500 500 Intake: Intake, IV Titration 1200 Amount Sodium Chloride 0.9% 1, 1200 000 ml @ 75 mls/hr IV . [id number] [facility] Rx#:[id number] Oral 200 Output: Urine 500 900 Other: Voiding Method Toilet Toilet Toilet Urinal Urinal Urinal # Voids 2 2 # Bowel Movements 2 - Exam No acute distress, oriented 3. HEENT examination is grossly unremarkable. Mucous membranes are moist. No oral lesions. Neck supple. Full range of motion. No adenopathy thyromegaly or neck vein distention. Cardiovascular examination reveals regular rhythm rate. S1-S2 normal. No S3 or S4. No discernible murmur noted. Lungs reveal diffuse coarse bilateral rhonchi. Breath sounds are diminished throughout. No crackles. A few scattered wheezes. Breath sounds are equal. Lung sounds have improved though. Abdomen soft bowel sounds are heard. No masses or tenderness. Extremities are intact. No cyanosis clubbing or edema. Skin is without rash or lesion. Neurologic examination is brief but nonfocal. - Labs CBC & Chem 7: 05/23/17 04:17 05/23/17 04:17 Labs: Microbiology - Last 24 Hours (Table) 05/22/17 16:09 Blood Culture - Preliminary Blood No Growth after 48 hours Assessment and Plan Assessment: Assessment Acute COPD exacerbation Severe oxygen-dependent COPD Chronic hypoxemia Chronic and ongoing tobacco dependence History of macrocytic anemia Previous history of spontaneous pneumothorax BPH Degenerative joint disease Anxiety/depression Abdominal aortic aneurysm Status post chest tube placement with pleurodesis Plan: Plan dated 05/25/2017 The patient's doing much better. We'll continue to follow. Hopefully discharge in the next 24-48 hours. Medications are reviewed. We'll continue to watch closely. Time with Patient: Less than 30
[2017-05-25] MEDS: methylPREDNISolone SOD SUCCI 40 MG/ML 1 ML VIAL IV SCH ×2 (16:54→23:49)
[2017-05-25] MEDS: DOCUSATE 100 MG CAP PO PRN (16:54)
[2017-05-25 17:05] LABS: Glucose,Whole Blood 119 mg/dL (75-99)
[2017-05-25] MEDS: SODIUM CHLORIDE 0.9% 1,000 ML IV SCH (19:37)
[2017-05-25] MEDS: SYMBICORT 160-4.5 MCG INHALER INHALATION SCH (20:26)
[2017-05-26] MEDS: HYDROcodone/APAP 5-325MG 1 EACH TAB PO PRN ×3 (01:34→10:11)
[2017-05-26] MEDS: SODIUM CHLORIDE 0.9% 1,000 ML IV SCH (05:24)
[2017-05-26] MEDS: methylPREDNISolone SOD SUCCI 40 MG/ML 1 ML VIAL IV SCH ×3 (05:24→17:39)
[2017-05-26] MEDS: SENNOSIDES 8.6 MG TAB PO SCH (08:33)
[2017-05-26] MEDS: LEVOFLOXACIN 750 MG TAB PO SCH (08:33)
[2017-05-26] MEDS: HEPARIN SODIUM,PORCINE 5,000 UNIT/ML 1 ML VIAL SQ SCH ×2 (08:33→19:50)
[2017-05-26] MEDS: buPROPion 100 MG TAB PO SCH ×2 (08:33→19:50)
[2017-05-26] MEDS: NICOTINE 14MG/24HR PATCH TRANSDERM SCH (08:33)
[2017-05-26] MEDS: IPRATROPIUM-ALBUTEROL 3 ML NEB INHALATION SCH ×4 (08:44→20:35)
[2017-05-26] MEDS: SYMBICORT 160-4.5 MCG INHALER INHALATION SCH ×2 (08:44→20:35)
[2017-05-26 12:27] LABS: Anion Gap 8 mmol/L; Blood Urea Nitrogen 18 mg/dL (9-20); Calcium 8.8 mg/dL (8.4-10.2); Carbon Dioxide 31 mmol/L (22-30); Chloride 98 mmol/L (98-107); Glucose 138 mg/dL (74-99); Potassium 4.5 mmol/L (3.5-5.1); Sodium 137 mmol/L (137-145)
[2017-05-26 12:36] LABS: Anisocytosis Slight; Basophils % (A) 0 %; Eosinophils % (A) 0 %; HCT 24.9 % (39.0-53.0); HGB 7.6 gm/dL (13.0-17.5); Hypochromasia Marked; Lymphocytes # (A) 0.8 k/uL (1.0-4.8); Lymphocytes % (A) 19 %; MCH 33.2 pg (25.0-35.0); MCHC 30.4 g/dL (31.0-37.0); MCV 109.2 fL (80.0-100.0); Macrocytosis Marked; Mean Platelet Volume 7.5; Monocytes # (A) 0.2 k/uL (0-1.0); Monocytes % (A) 4 %; Neutrophils % (A) 75 %; Platelet Count 289 k/uL (150-450); Poikilocytosis Slight; RBC 2.28 m/uL (4.30-5.90); RDW 17.6 % (11.5-15.5)
[2017-05-26] MEDS: HYDROcodone/APAP 10-325MG 1 EACH TAB PO PRN ×2 (13:38→19:49)
[2017-05-26 13:44] LABS: Anisocytosis (M) Present
--- NOTE | 2017-05-26 14:42 | P.PN ---
Subjective Progress Note Date: 05/26/17 Principal diagnosis: Acute COPD exacerbation Progress note dated 05/25/2017 This is a very pleasant 51-year-old male looks much older than his stated age, who is admitted with a diagnosis of COPD exacerbation hypoxemic respiratory failure chronic and ongoing tobacco dependence macrocytic anemia spontaneous pneumothorax BPH DJD anxiety/depression and abdominal aortic aneurysm. Chest x- ray has mostly chronic changes. The radiologist keep on talking about changes in the right upper lobe which is where most of the chronic changes are. I don' t believe he has an acute pneumonia but rather an acute tracheobronchitis. Nonetheless, the patient is improved. Less short of breath. Less congestion. Less cough. Less phlegm production. Most of the shortness of breath occurs when he exerts himself. On 05/26/2017 patient is to follow-up in medical surgical floor. Still has the congestive cough, nonproductive. Sounds are diminished, with a few rales at posterior left base. Afebrile, vital signs stable, continues 2 L per nasal cannula with O2 sat 99%. Culture is negative the 72 hour vandana. Chest x-ray from 05/24/2017 has been reviewed as apical scarring, right upper lobe infiltrate could not be excluded. Patient continues on Symbicort, and nebulized treatments, Levaquin, and IV Solu-Medrol. At rest he seems fairly comfortable, no signs of any distress. Objective - Vital Signs Vital signs: Vital Signs Temp 97.4 F L 05/26/17 07:00 Pulse 92 05/26/17 13:29 Resp 16 05/26/17 07:00 BP 103/62 05/26/17 07:00 Pulse Ox 99 05/26/17 07:00 Intake & Output 05/25/17 05/26/17 05/26/17 18:59 06:59 18:59 Intake Total 525 1305 Output Total 1600 Balance 525 -295 Weight 61.8 kg Intake: Intake, IV Titration 525 825 Amount Sodium Chloride 0.9% 1, 525 825 000 ml @ 75 mls/hr IV . [id number] [facility] Rx#:[id number] Oral 480 Output: Urine 1600 Other: Voiding Method Toilet Toilet Urinal Urinal - Exam No acute distress, oriented 3. HEENT examination is grossly unremarkable. Mucous membranes are moist. No oral lesions. Neck supple. Full range of motion. No adenopathy thyromegaly or neck vein distention. Cardiovascular examination reveals regular rhythm rate. S1-S2 normal. No S3 or S4. No discernible murmur noted. Lungs reveal diminished throughout. No crackles. A few scattered rales at the left posterior lower base.. Breath sounds are equal. Lung sounds have improved though. Abdomen soft bowel sounds are heard. No masses or tenderness. Extremities are intact. No cyanosis clubbing or edema. Skin is without rash or lesion. Neurologic examination is brief but nonfocal. - Labs CBC & Chem 7: 05/26/17 11:27 05/26/17 11:27 Labs: Abnormal Lab Results - Last 24 Hours (Table) 05/25/17 05/26/17 05/26/17 Range/Units 16:55 11:27 11:27 RBC 2.28 L (4.30-5.90) m/uL Hgb 7.6 L (13.0-17.5) gm/dL Hct 24.9 L (39.0-53.0) % MCV 109.2 H (80.0-100.0) fL MCHC 30.4 L (31.0-37.0) g/dL RDW 17.6 H (11.5-15.5) % Lymphocytes # 0.8 L (1.0-4.8) k/uL Carbon Dioxide 31 H (22-30) mmol/L Glucose 138 H (74-99) mg/dL POC Glucose (mg/dL) 119 H (75-99) mg/dL Microbiology - Last 24 Hours (Table) 05/22/17 16:09 Blood Culture - Preliminary Blood No Growth after 72 hours Assessment and Plan Plan: Assessment: Acute COPD exacerbation Severe oxygen-dependent COPD Chronic hypoxemia Chronic and ongoing tobacco dependence History of macrocytic anemia Previous history of spontaneous pneumothorax BPH Degenerative joint disease Anxiety/depression Abdominal aortic aneurysm Status post chest tube placement with pleurodesis Plan: Patient is improving, continues with loose nonproductive cough, lung sounds are negative for any wheezes, a few basilar rales noted left posterior base. Continue steroids, nebulized treatments, Levaquin. Anticipate further improvement. I performed a history & physical examination of the patient and discussed their management with my nurse practitioner, Corie Dasilva. I reviewed the nurse practitioner's note and agree with the documented findings and plan of care. Lung sounds are a few rales at posterior lower base. The findings and the impression was discussed with the patient. I attest to the documentation by the nurse practitioner. Time with Patient: Less than 30
--- NOTE | 2017-05-26 16:07 | CT ---
EXAMINATION TYPE: CT chest wo con DATE OF EXAM: 05/26/2017 COMPARISON: 04/08/2017 HISTORY: 51-year-old male Cough and IMER, evaluate for pneumonia. TECHNIQUE: Contiguous axial scanning of the chest without IV contrast. Coronal and sagittal reconstru ctions performed. CT DLP: 188.4 mGycm Automated exposure control for dose reduction was used. FINDINGS: The heart is normal size without pericardial effusion. Coronary vessel calcifications are present in remarkable for coronary artery disease. Aorta normal caliber with conventional arch vessel branching anatomy. For noncontrast technique, no obvious thoracic lymphadenopathy seen. There is centrilobular and paraseptal emphysema as well as apparent honeycombing and chronic intersti tial fibrosis at the mid to lower lungs. 3.5 to 4 cm linear thin, nonocclusive plug of debris/mucus in the left mainstem bronchus. Thick-walled bulla/cavitary changes at the right apex and posterior right upper lobe with some associ ated patchy consolidation could be persistent or recurrent as compared to 04/08/2017. Some surgical ma terial is present here at bilateral apices with bullous emphysema. Calcified right hilar lymph nodes and right upper lobe calcified granuloma. Visualized upper abdomen shows tiny hernia and calcified granulomas in the spleen. Bones: Endplate spondylosis throughout the thoracic spine. No osseous destructive process seen. IMPRESSION: 1. BULLOUS EMPHYSEMA ALONG WITH CHRONIC INTERSTITIAL LUNG DISEASE, POSSIBLE UIP WITH HONEYCOMBING. 2. THE CHRONIC THICK WALLED BULLOUS/CAVITARY CHANGES IN THE POSTERIOR RIGHT UPPER LOBE ARE SURROUNDED BY PATCHY CONSOLIDATION WHICH IS EITHER PERSISTENT OR RECURRENT FROM 04/08/2017 AND SUSPICIOUS FOR PN EUMONIA. 3. A 3.5 to 4 cm long, thin filling defect within the left mainstem bronchus could represent mucoid d ebris.
--- NOTE | 2017-05-26 22:57 | P.PN ---
Subjective Progress Note Date: 05/24/17 Principal diagnosis: Acute COPD exacerbation Patient is a 51-year-old male with a known history of COPD on home oxygen, history of pneumothorax and aortic aneurysm and BPH came to ER with complaints of worsening shortness of breath along with cough and congestion. Patient is being followed by visiting physician at home and was told that he was having crackles on lung examination. Patient had several admissions for COPD exacerbation. Last admission was about a month back. Patient does have cough with whitish to green sputum production. Patient otherwise denied any fever or chills. No sick contacts at home. No nausea vomiting no abdominal pain no diarrhea. Chest x-ray showed chronic changes but no acute cardio pulmonary process. Showed COPD with bullous emphysema and redemonstrated cavitary changes with volume loss at the right apex. On 05/24/2017 Patient was transferred to general medical floor. Patient is status is comparatively improved from yesterday. Chest x-ray showed evidence of COPD and chronic apical scarring including the right upper lobe. Currently saturating well on nausea cannula at 3 L. Otherwise patient is hemodynamically stable. No fever no chills. No nausea vomiting or abdominal pain. All other review of systems negative except the above Current medications reviewed Objective - Vital Signs Vital signs: Vital Signs Temp 97.6 F 05/24/17 15:00 Pulse 92 05/24/17 21:29 Resp 18 05/24/17 15:00 BP 101/60 05/24/17 15:00 Pulse Ox 99 05/24/17 15:59 Intake & Output 05/24/17 05/24/17 05/25/17 06:59 18:59 06:59 Intake Total 700 Output Total 500 Balance 700 -500 Intake: Intake, IV Titration 600 Amount Sodium Chloride 0.9% 1, 600 000 ml @ 75 mls/hr IV . [id number] [facility] Rx#:[id number] Oral 100 Output: Urine 500 Other: Voiding Method Toilet Toilet Urinal Urinal # Voids 1 2 # Bowel Movements 2 - Exam Patient is lying in the bed comfortably, no acute distress, awake alert and oriented.. HEENT: Normocephalic. Neck is supple. Pupils reactive. Nostrils clear. Oral cavity is moist. Ears reveal no drainage. Neck reveals no JVD, carotid bruits, or thyromegaly. CHEST EXAMINATION: Trachea is central. Symmetrical expansion. Bilateral diminished air entry and rhonchi positive. wheezing improved CARDIAC: Normal S1, S2 with no gallops. No murmurs ABDOMEN: Soft. Bowel sounds normal. No organomegaly. No abdominal bruits. Extremities: reveal no edema. No clubbing or cyanosis Neurologically awake, alert, oriented x3 with well-coordinated movements. No focal deficits noted Skin: No rash or skin lesions. Psychiatric: Coperative. Nonsuicidal Musculoskeletal: No joint swelling or deformity. Normal range of motion. 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 Pulmonary is following. continued on antibiotics in the form of levofloxacin. Smoking cessation has been counseled extensively. Further recommendations based on the clinical course. seems clinically improving.
--- NOTE | 2017-05-26 23:00 | P.PN ---
Subjective Progress Note Date: 05/25/17 Principal diagnosis: Acute COPD exacerbation Patient is a 51-year-old male with a known history of COPD on home oxygen, history of pneumothorax and aortic aneurysm and BPH came to ER with complaints of worsening shortness of breath along with cough and congestion. Patient is being followed by visiting physician at home and was told that he was having crackles on lung examination. Patient had several admissions for COPD exacerbation. Last admission was about a month back. Patient does have cough with whitish to green sputum production. Patient otherwise denied any fever or chills. No sick contacts at home. No nausea vomiting no abdominal pain no diarrhea. Chest x-ray showed chronic changes but no acute cardio pulmonary process. Showed COPD with bullous emphysema and redemonstrated cavitary changes with volume loss at the right apex. On 05/24/2017 Patient was transferred to general medical floor. Patient is status is comparatively improved from yesterday. Chest x-ray showed evidence of COPD and chronic apical scarring including the right upper lobe. Currently saturating well on nausea cannula at 3 L. Otherwise patient is hemodynamically stable. No fever no chills. No nausea vomiting or abdominal pain. 05/25/2017. Patient is clinically improving. Otherwise still having shortness of breath with exertion. No complaints of nausea vomiting. Cough without much sputum production. No other acute overnight issues. Continued on IV steroids. Anticipate discharge in next 24-48 hours. All other review of systems negative except the above Current medications reviewed Objective - Vital Signs Vital signs: Vital Signs Temp 97.6 F 05/25/17 15:00 Pulse 80 05/25/17 20:51 Resp 16 05/25/17 16:00 BP 96/58 05/25/17 15:00 Pulse Ox 97 05/25/17 16:23 Intake & Output 05/25/17 05/25/17 05/26/17 06:59 18:59 06:59 Intake Total 1400 525 225 Output Total 900 450 Balance 500 525 -225 Intake: Intake, IV Titration 1200 525 225 Amount Sodium Chloride 0.9% 1, 1200 525 225 000 ml @ 75 mls/hr IV . [id number] [facility] Rx#:[id number] Oral 200 Output: Urine 900 450 Other: Voiding Method Toilet Toilet Urinal Urinal # Voids 2 - Exam Patient is lying in the bed comfortably, no acute distress, awake alert and oriented.. HEENT: Normocephalic. Neck is supple. Pupils reactive. Nostrils clear. Oral cavity is moist. Ears reveal no drainage. Neck reveals no JVD, carotid bruits, or thyromegaly. CHEST EXAMINATION: Trachea is central. Symmetrical expansion. Bilateral diminished air entry and rhonchi positive. wheezing improved CARDIAC: Normal S1, S2 with no gallops. No murmurs ABDOMEN: Soft. Bowel sounds normal. No organomegaly. No abdominal bruits. Extremities: reveal no edema. No clubbing or cyanosis Neurologically awake, alert, oriented x3 with well-coordinated movements. No focal deficits noted Skin: No rash or skin lesions. Psychiatric: Coperative. Nonsuicidal Musculoskeletal: No joint swelling or deformity. Normal range of motion. 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 Pulmonary is following. continued on antibiotics in the form of levofloxacin. Smoking cessation has been counseled extensively. Further recommendations based on the clinical course. seems clinically improving.
--- NOTE | 2017-05-26 23:01 | P.PN ---
Subjective Progress Note Date: 05/26/17 Principal diagnosis: Acute COPD exacerbation Patient is a 51-year-old male with a known history of COPD on home oxygen, history of pneumothorax and aortic aneurysm and BPH came to ER with complaints of worsening shortness of breath along with cough and congestion. Patient is being followed by visiting physician at home and was told that he was having crackles on lung examination. Patient had several admissions for COPD exacerbation. Last admission was about a month back. Patient does have cough with whitish to green sputum production. Patient otherwise denied any fever or chills. No sick contacts at home. No nausea vomiting no abdominal pain no diarrhea. Chest x-ray showed chronic changes but no acute cardio pulmonary process. Showed COPD with bullous emphysema and redemonstrated cavitary changes with volume loss at the right apex. On 05/24/2017 Patient was transferred to general medical floor. Patient is status is comparatively improved from yesterday. Chest x-ray showed evidence of COPD and chronic apical scarring including the right upper lobe. Currently saturating well on nausea cannula at 3 L. Otherwise patient is hemodynamically stable. No fever no chills. No nausea vomiting or abdominal pain. 05/25/2017. Patient is clinically improving. Otherwise still having shortness of breath with exertion. No complaints of nausea vomiting. Cough without much sputum production. No other acute overnight issues. Continued on IV steroids. Anticipate discharge in next 24-48 hours. 05/26/2079 Patient is still requiring oxygen. Breathing status is improving otherwise. CT of the chest was ordered. No fever no chills. Cough improved no complaints of chest pain. No nausea vomiting or abdominal pain. Tolerating oral diet. All other review of systems negative except the above Current medications reviewed Objective - Vital Signs Vital signs: Vital Signs Temp 97.6 F 05/26/17 15:00 Pulse 88 05/26/17 20:50 Resp 16 05/26/17 15:00 BP 103/64 05/26/17 15:00 Pulse Ox 98 05/26/17 15:00 Intake & Output 05/26/17 05/26/17 05/27/17 06:59 18:59 06:59 Intake Total 1305 540 Output Total 1600 1000 Balance -295 -460 Weight 61.8 kg Intake: Intake, IV Titration 825 Amount Sodium Chloride 0.9% 1, 825 000 ml @ 75 mls/hr IV . [id number] Rx#:[id number] Oral 480 540 Output: Urine 1600 1000 Other: Voiding Method Toilet Toilet Urinal Urinal - Exam Patient is lying in the bed comfortably, no acute distress, awake alert and oriented.. HEENT: Normocephalic. Neck is supple. Pupils reactive. Nostrils clear. Oral cavity is moist. Ears reveal no drainage. Neck reveals no JVD, carotid bruits, or thyromegaly. CHEST EXAMINATION: Trachea is central. Symmetrical expansion. Bilateral diminished air entry basally and rhonchi positive. No wheezing CARDIAC: Normal S1, S2 with no gallops. No murmurs ABDOMEN: Soft. Bowel sounds normal. No organomegaly. No abdominal bruits. Extremities: reveal no edema. No clubbing or cyanosis Neurologically awake, alert, oriented x3 with well-coordinated movements. No focal deficits noted Skin: No rash or skin lesions. Psychiatric: Coperative. Nonsuicidal Musculoskeletal: No joint swelling or deformity. Normal range of motion. - Labs CBC & Chem 7: 05/26/17 11:27 05/26/17 11:27 Labs: Abnormal Lab Results - Last 24 Hours (Table) 05/26/17 05/26/17 Range/Units 11:27 11:27 RBC 2.28 L (4.30-5.90) m/uL Hgb 7.6 L (13.0-17.5) gm/dL Hct 24.9 L (39.0-53.0) % MCV 109.2 H (80.0-100.0) fL MCHC 30.4 L (31.0-37.0) g/dL RDW 17.6 H (11.5-15.5) % Lymphocytes # 0.8 L (1.0-4.8) k/uL Carbon Dioxide 31 H (22-30) mmol/L Glucose 138 H (74-99) mg/dL Microbiology - Last 24 Hours (Table) 05/22/17 16:09 Blood Culture - Preliminary Blood No Growth after 96 hours Assessment and Plan Assessment: #1 acute COPD exacerbation #2 chronic hypoxic respiratory failure on oxygen-dependent #3 history of spontaneous pneumothorax requiring chest tube placement and pleurodesis #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 Pulmonary is following. continued on antibiotics in the form of levofloxacin. Smoking cessation has been counseled extensively. Further recommendations based on the clinical course. seems clinically improving.
[2017-05-27] MEDS: methylPREDNISolone SOD SUCCI 40 MG/ML 1 ML VIAL IV SCH ×3 (00:13→13:46)
[2017-05-27] MEDS: HYDROcodone/APAP 10-325MG 1 EACH TAB PO PRN ×4 (02:39→21:55)
[2017-05-27] MEDS: NICOTINE 14MG/24HR PATCH TRANSDERM SCH (08:09)
[2017-05-27] MEDS: buPROPion 100 MG TAB PO SCH ×2 (08:09→21:53)
[2017-05-27] MEDS: HEPARIN SODIUM,PORCINE 5,000 UNIT/ML 1 ML VIAL SQ SCH ×2 (08:10→21:53)
[2017-05-27] MEDS: LEVOFLOXACIN 750 MG TAB PO SCH (08:10)
[2017-05-27] MEDS: SENNOSIDES 8.6 MG TAB PO SCH (08:10)
[2017-05-27] MEDS: SYMBICORT 160-4.5 MCG INHALER INHALATION SCH ×2 (08:17→19:55)
[2017-05-27] MEDS: IPRATROPIUM-ALBUTEROL 3 ML NEB INHALATION SCH ×4 (08:17→19:55)
[2017-05-27] MEDS: DOCUSATE 100 MG CAP PO PRN (09:10)
--- NOTE | 2017-05-27 15:35 | P.PN ---
Subjective Progress Note Date: 05/27/17 Principal diagnosis: Acute COPD exacerbation Progress note dated 05/25/2017 This is a very pleasant 51-year-old male looks much older than his stated age, who is admitted with a diagnosis of COPD exacerbation hypoxemic respiratory failure chronic and ongoing tobacco dependence macrocytic anemia spontaneous pneumothorax BPH DJD anxiety/depression and abdominal aortic aneurysm. Chest x- ray has mostly chronic changes. The radiologist keep on talking about changes in the right upper lobe which is where most of the chronic changes are. I don' t believe he has an acute pneumonia but rather an acute tracheobronchitis. Nonetheless, the patient is improved. Less short of breath. Less congestion. Less cough. Less phlegm production. Most of the shortness of breath occurs when he exerts himself. On 05/26/2017 patient is to follow-up in medical surgical floor. Still has the congestive cough, nonproductive. Sounds are diminished, with a few rales at posterior left base. Afebrile, vital signs stable, continues 2 L per nasal cannula with O2 sat 99%. Culture is negative the 72 hour vandana. Chest x-ray from 05/24/2017 has been reviewed as apical scarring, right upper lobe infiltrate could not be excluded. Patient continues on Symbicort, and nebulized treatments, Levaquin, and IV Solu-Medrol. At rest he seems fairly comfortable, no signs of any distress. On 05/27/2017 patient seen in follow-up on medical surgical floor. Reports significant improvement in terms of dyspnea, lung sounds are diminished, with a few wheezes over right posterior lower lobe. Vital signs are stable, patient is afebrile, currently on 3 L per nasal cannula with O2 sat 97%. He states he has been up ambulating in the room, tolerated it fairly well. Blood culture showed no growth at the 96 hour vandana. Today's lab work has been reviewed, WBC is within normal limits, 4.0, hemoglobin is 7.6, sodium is 137, potassium is 4.5 , carbon dioxide is 31, B1 is 18, creatinine of 0.67. CT chest from 05/26/2017 shows be was emphysema with chronic interstitial lung disease. The chronic thick-walled [place]/cavitary changes in the posterior right upper lobe are surrounded by patchy consolidation which is either persistent or recurrent from 04/08/2017 and suspicious for pneumonia. There is a thin filling defect within the left mainstem bronchus that could represent mucoid debris. Objective - Vital Signs Vital signs: Vital Signs Temp 98.8 F 05/27/17 12:39 Pulse 78 05/27/17 12:39 Resp 30 H 05/27/17 12:45 BP 107/59 05/27/17 12:39 Pulse Ox 94 L 05/27/17 12:39 Intake & Output 05/26/17 05/27/17 05/27/17 18:59 06:59 18:59 Intake Total 540 580 Output Total 1000 600 Balance -460 -20 Weight 61.8 kg Intake: Oral 540 580 Output: Urine 1000 600 Other: Voiding Method Toilet Toilet Toilet Urinal Urinal # Voids 1 - Exam No acute distress, oriented 3. HEENT examination is grossly unremarkable. Mucous membranes are moist. No oral lesions. Neck supple. Full range of motion. No adenopathy thyromegaly or neck vein distention. Cardiovascular examination reveals regular rhythm rate. S1-S2 normal. No S3 or S4. No discernible murmur noted. Lungs reveal diminished throughout. No crackles. A few scattered wheezes at the right posterior lower base.. Breath sounds are equal. Lung sounds have improved though. Abdomen soft bowel sounds are heard. No masses or tenderness. Extremities are intact. No cyanosis clubbing or edema. Skin is without rash or lesion. Neurologic examination is brief but nonfocal. - Labs CBC & Chem 7: 05/26/17 11:27 05/26/17 11:27 Labs: Abnormal Lab Results - Last 24 Hours (Table) 05/26/17 Range/Units 11:27 RBC 2.28 L (4.30-5.90) m/uL Hgb 7.6 L (13.0-17.5) gm/dL Hct 24.9 L (39.0-53.0) % MCV 109.2 H (80.0-100.0) fL MCHC 30.4 L (31.0-37.0) g/dL RDW 17.6 H (11.5-15.5) % Lymphocytes # 0.8 L (1.0-4.8) k/uL Microbiology - Last 24 Hours (Table) 05/22/17 16:09 Blood Culture - Preliminary Blood No Growth after 96 hours Assessment and Plan Plan: Assessment: 1. Acute COPD exacerbation 2. Severe oxygen-dependent COPD 3. Chronic hypoxemia 4. Chronic and ongoing tobacco dependence 5. History of macrocytic anemia 6. Previous history of spontaneous pneumothorax 7. BPH 8. Degenerative joint disease 9. Anxiety/depression 10. Abdominal aortic aneurysm 11. Status post chest tube placement with pleurodesis Plan: Patient continues to clinically improve, continue to increase activity as tolerated. Patient is afebrile, vital signs are stable, continue nebulized treatments, continue Symbicort, continue oral Levaquin, we will switch the patient to oral prednisone, from pulmonary standpoint, patient is stable for discharge home today. I performed a history & physical examination of the patient and discussed their management with my nurse practitioner, Corie Dasilva. I reviewed the nurse practitioner's note and agree with the documented findings and plan of care. Lung sounds are positive for a few scattered wheezes at the right posterior lower lobe. The findings and the impression was discussed with the patient. I attest to the documentation by the nurse practitioner. Time with Patient: Less than 30
[2017-05-27 16:44] LABS: Anisocytosis Slight; HCT 29.5 % (39.0-53.0); Hypochromasia Marked; MCH 33.7 pg (25.0-35.0); MCHC 30.4 g/dL (31.0-37.0); MCV 110.9 fL (80.0-100.0); Macrocytosis Marked; Mean Platelet Volume 8.6; Platelet Count 287 k/uL (150-450); RBC 2.66 m/uL (4.30-5.90); RDW 18.7 % (11.5-15.5); WBC 4.5 k/uL (3.8-10.6)
[2017-05-27 17:41] LABS: Band Neutrophils % 6 %; Lymphocytes # (M) 0.68 k/uL (1.0-4.8); Monocytes # (M) 0.23 k/uL (0-1.0); Myelocytes # (M) 0.18 k/uL (0); Myelocytes % 4 %; Neutrophils % (M) 71 %; Nucleated Red Blood Cells 1 /100 WBC (0-0); Polychromasia Present; Total Cells Counted 200
--- NOTE | 2017-05-27 21:07 | PN ---
PROGRESS NOTE DATE OF SERVICE: 05/27/2017 BRIEF HISTORY: This is a 51-year-old male patient who was admitted with acute hypoxemic respiratory failure secondary to acute exacerbation of COPD and history of myelodysplastic syndrome. The patient was treated with steroid nebulizer and antibiotic therapy. Patient is seen in the room, resting comfortably in bed. He is in no acute distress. VITAL SIGNS: Temperature of 98.8, pulse 78, respiration 30, blood pressure 107/ 59, oxygen saturation 94%. HEENT: Atraumatic, normocephalic. Pupils are equal and reactive to light. Extraocular movements are intact. Buccal mucosa is fair. Neck is supple. No goiter or lymphadenopathy. JVD is negative. No carotid bruit heard. RESPIRATORY SYSTEM: Lungs have improved air entry with decreased breath sounds, but there are no crackles. Scattered wheezes. CARDIOVASCULAR SYSTEM: Heart is regular rate and rhythm without any murmurs, gallop rhythm. GI: Abdomen is soft, nontender, nondistended. Bowel sounds positive. Extremities show no edema, clubbing or cyanosis. Pulses are palpable. Skin is intact, warm and dry. NEUROLOGICAL EXAMINATION: Patient has no gross motor or sensory deficit. Cranial nerves 2-12 grossly intact. MUSCULOSKELETAL: Patient moves all 4 extremities. No gross joint deformity or swelling. PSYCHIATRIC: Patient has fair judgment and mood. LABS: CBC shows white blood count of 4.5, hemoglobin 9.2, hematocrit 29.5 and platelet count of 287. ASSESSMENT: 1. Acute hypoxemic respiratory failure. 2. Acute exacerbation chronic obstructive pulmonary disease. 3. Severe oxygen-dependent chronic obstructive pulmonary disease. 4. Chronic hypoxemia. 5. Chronic tobacco dependence. 6. History of spontaneous pneumothorax requiring chest tube placement and pleurodesis. 7. Myelodysplastic syndrome. Patient is status post bone marrow biopsy and is following up with Hematology. The patient is currently on weekly Epogen shots. 8. Benign prostatic hypertrophy. 9. Degenerative joint disease. 10.Anxiety and depression. 11.History of abdominal aortic aneurysm. The patient's steroids have been switched to oral. Patient is started on Symbicort inhaler. Levaquin has been switched to oral, also. Patient was seen by Pulmonary and has been cleared for discharge. Will continue to monitor the patient's CBC. The patient's hemoglobin yesterday was 7.6; today it is over 9. At this point, we will continue to monitor and discharge patient home if hemoglobin stays stable. MMLALIT / JENNIFERN: [id number] / NILAY
[2017-05-28] MEDS ORDERED: HYDROcodone/APAP 10-325MG 1 EACH TAB ONE (03:41)
[2017-05-28 07:56] VITALS: TEMP 98.7
[2017-05-28] MEDS: IPRATROPIUM-ALBUTEROL 3 ML NEB INHALATION SCH ×3 (08:36→15:17)
[2017-05-28] MEDS: SYMBICORT 160-4.5 MCG INHALER INHALATION SCH (08:36)
[2017-05-28 08:58] LABS: Anisocytosis Slight; HCT 30.8 % (39.0-53.0); Hypochromasia Marked; MCH 33.2 pg (25.0-35.0); MCHC 29.3 g/dL (31.0-37.0); MCV 113.4 fL (80.0-100.0); Macrocytosis Marked; Mean Platelet Volume 8.4; Platelet Count 276 k/uL (150-450); RBC 2.71 m/uL (4.30-5.90); RDW 18.8 % (11.5-15.5)
[2017-05-28] MEDS ORDERED: predniSONE 20 MG TAB PO SCH (09:00)
[2017-05-28] MEDS: NICOTINE 14MG/24HR PATCH TRANSDERM SCH (09:18)
[2017-05-28] MEDS: SENNOSIDES 8.6 MG TAB PO SCH (09:18)
[2017-05-28] MEDS: LEVOFLOXACIN 750 MG TAB PO SCH (09:19)
[2017-05-28] MEDS: HEPARIN SODIUM,PORCINE 5,000 UNIT/ML 1 ML VIAL SQ SCH (09:20)
[2017-05-28] MEDS: buPROPion 100 MG TAB PO SCH (09:20)
[2017-05-28 10:22] VITALS: RESP 32
[2017-05-28 10:39] LABS: Band Neutrophils % 7 %; Metamyelocytes % 4 %; Myelocytes % 7 %; Neutrophils % (M) 43 %; Nucleated Red Blood Cells 3 /100 WBC (0-0); Promyelocytes # (M) 0.05 k/uL (0); Promyelocytes % 1 %; Total Cells Counted 200
[2017-05-28 10:40] LABS: Lymphocytes # (M) 1.87 k/uL (1.0-4.8); Metamyelocytes # (M) 0.21 k/uL (0); Monocytes # (M) 0.21 k/uL (0-1.0); Myelocytes # (M) 0.36 k/uL (0); WBC 5.2 k/uL (3.8-10.6)
[2017-05-28 10:42] VITALS: BP 103/49
[2017-05-28] MEDS: HYDROcodone/APAP 10-325MG 1 EACH TAB PO PRN (10:44)
[2017-05-28 15:43] VITALS: PULSE 90
--- NOTE | 2017-05-28 16:14 | P.PN ---
<Corie Dasilva M - Last Filed: 05/28/17 16:09> Subjective Progress Note Date: 05/28/17 Principal diagnosis: Acute COPD exacerbation Progress note dated 05/25/2017 This is a very pleasant 51-year-old male looks much older than his stated age, who is admitted with a diagnosis of COPD exacerbation hypoxemic respiratory failure chronic and ongoing tobacco dependence macrocytic anemia spontaneous pneumothorax BPH DJD anxiety/depression and abdominal aortic aneurysm. Chest x- ray has mostly chronic changes. The radiologist keep on talking about changes in the right upper lobe which is where most of the chronic changes are. I don' t believe he has an acute pneumonia but rather an acute tracheobronchitis. Nonetheless, the patient is improved. Less short of breath. Less congestion. Less cough. Less phlegm production. Most of the shortness of breath occurs when he exerts himself. On 05/26/2017 patient is to follow-up in medical surgical floor. Still has the congestive cough, nonproductive. Sounds are diminished, with a few rales at posterior left base. Afebrile, vital signs stable, continues 2 L per nasal cannula with O2 sat 99%. Culture is negative the 72 hour vandana. Chest x-ray from 05/24/2017 has been reviewed as apical scarring, right upper lobe infiltrate could not be excluded. Patient continues on Symbicort, and nebulized treatments, Levaquin, and IV Solu-Medrol. At rest he seems fairly comfortable, no signs of any distress. On 05/27/2017 patient seen in follow-up on medical surgical floor. Reports significant improvement in terms of dyspnea, lung sounds are diminished, with a few wheezes over right posterior lower lobe. Vital signs are stable, patient is afebrile, currently on 3 L per nasal cannula with O2 sat 97%. He states he has been up ambulating in the room, tolerated it fairly well. Blood culture showed no growth at the 96 hour vandana. Today's lab work has been reviewed, WBC is within normal limits, 4.0, hemoglobin is 7.6, sodium is 137, potassium is 4.5 , carbon dioxide is 31, B1 is 18, creatinine of 0.67. CT chest from 05/26/2017 shows be was emphysema with chronic interstitial lung disease. The chronic thick-walled cavitary changes in the posterior right upper lobe are surrounded by patchy consolidation which is either persistent or recurrent from 04/08/2017 and suspicious for pneumonia. There is a thin filling defect within the left mainstem bronchus that could represent mucoid debris. On 05/28/2017 patient seen in follow-up on medical surgical floor. Continues on 2 L per nasal cannula with O2 sat at 98%. Remains afebrile, vital signs are stable, lung sounds are diminished, no wheezes, no rhonchi auscultated. Today' s lab work has been reviewed, WBC is within normal limits of 5.2, hemoglobin is 9.0. Cultures remain negative since admission. He has been cleared for discharge from pulmonary standpoint on outpatient course of Levaquin, prednisone taper, and his maintenance inhalers and nebulized treatments. Objective - Vital Signs Vital signs: Vital Signs Temp 98.7 F 05/28/17 10:21 Pulse 90 05/28/17 15:27 Resp 32 H 05/28/17 10:21 BP 103/49 05/28/17 10:41 Pulse Ox 98 05/28/17 07:54 Intake & Output 05/27/17 05/28/17 05/28/17 18:59 06:59 18:59 Intake Total 240 840 590 Balance 240 840 590 Intake: Oral 240 840 590 Other: Voiding Method Toilet Toilet Toilet # Voids 5 1 3 - Exam No acute distress, oriented 3. HEENT examination is grossly unremarkable. Mucous membranes are moist. No oral lesions. Neck supple. Full range of motion. No adenopathy thyromegaly or neck vein distention. Cardiovascular examination reveals regular rhythm rate. S1-S2 normal. No S3 or S4. No discernible murmur noted. Lungs reveal diminished throughout. No crackles. No wheezes noted. Breath sounds are equal. Lung sounds have improved Abdomen soft bowel sounds are heard. No masses or tenderness. Extremities are intact. No cyanosis clubbing or edema. Skin is without rash or lesion. Neurologic examination is brief but nonfocal. - Labs CBC & Chem 7: 05/28/17 08:20 05/26/17 11:27 Labs: Abnormal Lab Results - Last 24 Hours (Table) 05/27/17 05/28/17 Range/Units 16:28 08:20 RBC 2.66 L 2.71 L (4.30-5.90) m/uL Hgb 9.0 L 9.0 L (13.0-17.5) gm/dL Hct 29.5 L 30.8 L (39.0-53.0) % MCV 110.9 H 113.4 H (80.0-100.0) fL MCHC 30.4 L 29.3 L (31.0-37.0) g/dL RDW 18.7 H 18.8 H (11.5-15.5) % Lymphocytes # (Manual) 0.68 L (1.0-4.8) k/uL Metamyelocytes # (Man) 0.21 H (0) k/uL Myelocytes # (Manual) 0.18 H 0.36 H (0) k/uL Promyelocytes # (Man) 0.05 H (0) k/uL Nucleated RBCs 1 H 3 H (0-0) /100 WBC Microbiology - Last 24 Hours (Table) 05/22/17 16:09 Blood Culture - Preliminary Blood No Growth after 120 hours Assessment and Plan Plan: Assessment: 1. Acute COPD exacerbation 2. Severe oxygen-dependent COPD 3. Chronic hypoxemia 4. Chronic and ongoing tobacco dependence 5. History of macrocytic anemia 6. Previous history of spontaneous pneumothorax 7. BPH 8. Degenerative joint disease 9. Anxiety/depression 10. Abdominal aortic aneurysm 11. Status post chest tube placement with pleurodesis Plan: Remains stable from pulmonary standpoint, patient can be discharged home on outpatient course of Levaquin, prednisone taper and his maintenance inhalers and nebulized treatments. Follow-up with Dr. Latham in the office in one week. I performed a history & physical examination of the patient and discussed their management with my nurse practitioner, Corie Dasilva. I reviewed the nurse practitioner's note and agree with the documented findings and plan of care. Lung sounds are diminished, no rhonchi no wheezes. The findings and the impression was discussed with the patient. I attest to the documentation by the nurse practitioner. Time with Patient: Less than 30 <Efraín Salinas - Last Filed: 05/28/17 18:17> Objective - Vital Signs Vital signs: Vital Signs Temp 98.7 F 05/28/17 10:21 Pulse 90 05/28/17 15:27 Resp 32 H 05/28/17 10:21 BP 103/49 05/28/17 10:41 Pulse Ox 98 01/24/18 07:54 Intake & Output 05/27/17 05/28/17 05/28/17 18:59 06:59 18:59 Intake Total 240 840 590 Balance 240 840 590 Intake: Oral 240 840 590 Other: Voiding Method Toilet Toilet Toilet # Voids 5 1 3 - Labs CBC & Chem 7: 05/28/17 08:20 05/26/17 11:27 Labs: Abnormal Lab Results - Last 24 Hours (Table) 05/28/17 Range/Units 08:20 RBC 2.71 L (4.30-5.90) m/uL Hgb 9.0 L (13.0-17.5) gm/dL Hct 30.8 L (39.0-53.0) % MCV 113.4 H (80.0-100.0) fL MCHC 29.3 L (31.0-37.0) g/dL RDW 18.8 H (11.5-15.5) % Metamyelocytes # (Man) 0.21 H (0) k/uL Myelocytes # (Manual) 0.36 H (0) k/uL Promyelocytes # (Man) 0.05 H (0) k/uL Nucleated RBCs 3 H (0-0) /100 WBC Microbiology - Last 24 Hours (Table) 05/22/17 16:09 Blood Culture - Final Blood No Growth after 144 hours Assessment and Plan Plan: Joint evaluation along with the nurse practitioner. CAT scan of the chest was noted. Patient will be discharged home today on a combination of antibiotics and prednisone burst taper.
--- NOTE | 2017-06-16 06:25 | DS ---
DISCHARGE SUMMARY DATE OF ADMISSION: 05/22/2017 DATE OF DISCHARGE: 05/28/2017 ADMISSION DIAGNOSES: Admission diagnoses on the patient were: 1. Acute exacerbation chronic obstructive pulmonary disease. 2. Chronic hypoxemic respiratory failure. 3. Spontaneous pneumothorax requiring chest tube placement and pleurodesis. 4. Myelodysplastic syndrome, status post bone marrow biopsy. Hematology following. Currently on weekly Epogen. 5. Benign prostatic hypertrophy. 6. Degenerative joint disease. 7. Anxiety and depression. 8. History of abdominal aortic aneurysm. BRIEF HISTORY ON THIS PATIENT: This was a 51-year-old male patient who presented to the ED with a complaint of worsening shortness of breath, cough and congestion. The patient was followed by a visiting physician at home and he was told that he had lung congestion and was recommended to follow up at the hospital. PAST MEDICAL HISTORY: 1. History of COPD, oxygen dependent. 2. History of anxiety, depression. 3. Pneumothorax. 4. Aortic aneurysm. 5. Benign prostatic hypertrophy. MEDICATIONS: The patient is on: 1. Advair 250/50 Diskus 1 inhalation b.i.d. 2. Spiriva 18 mcg q. daily. 3. Pioneer 10/325 q.i.d. 4. Singulair 10 mg q. daily. 5. DuoNeb nebulizer treatments q.i.d. p.r.n. 6. Wellbutrin SR 100 mg b.i.d. 7. Procrit 20,000 unit injection weekly. PHYSICAL EXAMINATION: On physical examination: CONSTITUTIONAL: Patient awake, alert, oriented x3. VITAL SIGNS: Temperature 96.5, pulse 150, respirations 32, blood pressure 132/61 , O2 saturation 98%. HEENT: Atraumatic, normocephalic. Pupils equal and react to light. Extraocular movements intact. Buccal mucosa fair. NECK: Supple. No goiter or lymphadenopathy. JVD negative. No carotid bruit heard. LUNGS: Decreased breath sounds. Diffuse expiratory wheezing and decreased air entry. HEART: Irregular, tachycardic. Regular rhythm. ABDOMEN: Soft, nontender, nondistended. Bowel sounds positive. EXTREMITIES: No edema, clubbing, cyanosis. NEUROLOGICAL EXAMINATION: Cranial nerves 2 through 12 grossly intact. No gross motor or sensory deficit. SKIN: No rashes or pigmentation. PSYCHIATRIC: Cooperative, nonsuicidal. LABS: Admission labs, CBC white blood count of 4.5, hemoglobin 8, hematocrit 26.5, and platelet count of 257. Chemical profile, sodium 137, potassium 4.5, chloride 103, bicarb 24, BUN of 20, creatinine 0.8, glucose 138. BRIEF HOSPITAL COURSE: The patient was admitted to monitored floor, was started on IV Solu-Medrol and DuoNeb breathing treatment. Pulmonary consultation was done. Patient was started on IV levofloxacin. Counseling was done for smoking cessation extensively. The patient did respond to these treatments well. He was gradually tapered off IV steroids. Pulmonary service followed the patient's improvement. CT of the chest was done while in the hospital, which was stable. The patient was switched to oral steroids. Was started on Symbicort, patient tolerated it well. Patient continued to improve, therefore switched to oral Levaquin. The patient did not have any complications with that. while in hospital hemoglobin dropped down to 7.5, the repeat hemoglobin was stable. The patient was then discharged home in stable stable condition. Was advised follow up as an outpatient and resume all discharge medications. DISCHARGE MEDICATIONS: The patient's discharge medications: 1. Colace 100 mg b.i.d. 2. DuoNeb inhalations q.i.d. 3. Levaquin 750 mg daily for 5 days. 4. Nicotine patch 14 mg for 24 hours. 5. Prednisone on a tapering dose. 6. Advair 250/50 one inhalation b.i.d. 7. Singulair 10 mg daily. 8. Epogen 20,000 units weekly. 9. Pioneer 10/325 q.i.d. p.r.n. 10.Multivitamins daily. 11.Spiriva 1 inhalation daily. 12.Wellbutrin 100 mg b.i.d. to continue home dose. MMODL / IJN: [id number] / MTDD
== END 2017-05-28 15:55 | disposition home health service (06) | DRG 190 ==
LOC: SUPCPDRO 15:18 → EC 15:18 → 6SEL 18:09 → 6ICU 19:22 → 5MS5E 05-23 12:26
PROVIDERS: ADMIT Hospitalist; ATTEND Hospitalist
DX: J44.1 Chronic obstructive pulmonary disease with (acute) exacerbation (principal); J96.21 Acute and chronic respiratory failure with hypoxia; J84.9 Interstitial pulmonary disease, unspecified; Z99.81 Dependence on supplemental oxygen; D46.9 Myelodysplastic syndrome, unspecified; E86.0 Dehydration; D53.9 Nutritional anemia, unspecified; I71.4 Abdominal aortic aneurysm, without rupture; J20.9 Acute bronchitis, unspecified; J44.0 Chronic obstructive pulmonary disease with (acute) lower respiratory infection; F17.210 Nicotine dependence, cigarettes, uncomplicated; F32.9 Major depressive disorder, single episode, unspecified; F41.9 Anxiety disorder, unspecified; M19.90 Unspecified osteoarthritis, unspecified site; N40.0 Benign prostatic hyperplasia without lower urinary tract symptoms; Z71.6 Tobacco abuse counseling; Z79.899 Other long term (current) drug therapy; Z87.01 Personal history of pneumonia (recurrent); Z80.1 Family history of malignant neoplasm of trachea, bronchus and lung; Z80.7 Family history of other malignant neoplasms of lymphoid, hematopoietic and related tissues; Z82.49 Family history of ischemic heart disease and other diseases of the circulatory system
CPT/HCPCS: 36415; 71045; 71046; 71250; 80048; 80053; 82550; 82553; 83605; 83735; 83880; 84484; 85025; 85610; 85730; 87040; 87502; 93005; 94640; 94760; 96361; 96365; 96375; 99291

== ENCOUNTER → 2017-05-22 | Outpatient (CLI) | payer MEDICARE ==
--- NOTE | 2017-05-22 21:17 | XR ---
EXAMINATION TYPE: XR chest 2V DATE OF EXAM: 05/22/2017 COMPARISON: 04/16/2017 HISTORY: 51-year-old male COPD, extreme shortness of breath, hypoxia TECHNIQUE: Frontal and lateral views FINDINGS: The heart is normal size. Aorta within normal limits. A protraction of the right hilum with cavitary changes in the right apex. Some surgical material also noted in the right apex. Some of the density s een on 04/16/2017 here show some improvement. Suggestion of some calcified right hilar lymph nodes. S ome patchy opacity remains at the peripheral right base. IMPRESSION: COPD with likely chronic cavitary changes at the right apex and some surgical material here as well a nd associated volume loss. Infiltrate and air-fluid level here has improved from prior exam. Some min imal patchy infiltrate remains at the right base.
== END | disposition home or self-care (01) ==
LOC: RADXRYALE 10:37
PROVIDERS: ATTEND Physician Assistant Medical
DX: J44.9 Chronic obstructive pulmonary disease, unspecified (principal); J96.11 Chronic respiratory failure with hypoxia
CPT/HCPCS: 71046

== ENCOUNTER 2017-05-29 10:00 | Observation (INO) | payer MEDICARE, OTHER ==
[2017-05-29] MEDS ORDERED: RX INFO: IV CONTRAST WAS GIVEN 1 EACH MISC MISCELLANE PRN (10:14)
[2017-05-29] MEDS ORDERED: SODIUM CHLORIDE 0.9% 1,000 ML IV STA ×2 (10:14→11:19)
[2017-05-29 10:44] LABS: Anisocytosis Slight; Basophils # (A) 0.1 k/uL (0-0.2); Basophils % (A) 1 %; Eosinophils % (A) 1 %; HCT 30.1 % (39.0-53.0); HGB 9.2 gm/dL (13.0-17.5); Hypochromasia Moderate; Lymphocytes # (A) 2.1 k/uL (1.0-4.8); Lymphocytes % (A) 29 %; MCH 33.6 pg (25.0-35.0); MCHC 30.6 g/dL (31.0-37.0); MCV 109.8 fL (80.0-100.0); Macrocytosis Marked; Mean Platelet Volume 7.3; Monocytes # (A) 0.4 k/uL (0-1.0); Monocytes % (A) 6 %; Neutrophils # (A) 4.3 k/uL (1.3-7.7); Neutrophils % (A) 61 %; Platelet Count 293 k/uL (150-450); RBC 2.74 m/uL (4.30-5.90); RDW 19.3 % (11.5-15.5)
[2017-05-29 10:46] LABS: Prothrombin Time 10.2 sec (9.0-12.0)
[2017-05-29 10:48] LABS: ALT 31 U/L (21-72); AST 25 U/L (17-59); Alkaline Phosphatase 64 U/L (38-126); Anion Gap 6 mmol/L; Blood Urea Nitrogen 29 mg/dL (9-20); Calcium 8.7 mg/dL (8.4-10.2); Carbon Dioxide 30 mmol/L (22-30); Chloride 100 mmol/L (98-107); Glucose 87 mg/dL (74-99); Potassium 4.1 mmol/L (3.5-5.1); Sodium 136 mmol/L (137-145); Total Bilirubin 0.8 mg/dL (0.2-1.3); Total Protein 5.9 g/dL (6.3-8.2)
[2017-05-29 10:57] LABS: Partial Thromboplastin Time 21.4 sec (22.0-30.0)
[2017-05-29 11:07] LABS: Glucose,Whole Blood 81 mg/dL (75-99)
--- NOTE | 2017-05-29 11:17 | CT ---
EXAMINATION TYPE: CT brain wo con for TPA DATE OF EXAM: 05/29/2017 COMPARISON: NONE HISTORY: Patient complains of episode of slurred speech last night. CT DLP: 789.[address] of the brain was performed. The ventricles, basal cisterns and sulci overlying the cerebral convexities demonstrate mild enlargem ent. There is no evidence for intracranial hemorrhage or sulcal effacement. There is decreased attenuation about the periventricular white matter and deep white matter of both c erebral hemispheres, compatible with chronic small vessel ischemia. Differential diagnosis does inclu de demyelination. No mass effects are seen.No midline shift. Osseous calvarium is intact. If symptoms persist consider MRI. IMPRESSION: 1. Age related atrophic and chronic small vessel ischemic change without acute intracranial process s een at this time.
[2017-05-29 11:19] LABS: Poikilocytosis (M) Present; Polychromasia Present; Toxic Granulation Present
[2017-05-29 11:21] LABS: Creatine Kinase MB 0.5 ng/mL (0.0-2.4); Troponin I 0.016 ng/mL (0.000-0.034)
--- NOTE | 2017-05-29 11:23 | ED ---
General Adult HPI - General Chief complaint: Neuro Symptoms/Deficit Stated complaint: Stroke like symptoms Time Seen by Provider: 05/29/17 10:09 Source: patient Mode of arrival: EMS Limitations: no limitations - History of Present Illness Initial comments: This 51-year-old white male presents for some slurred speech and right facial droop. He apparently woke up with these symptoms this morning. He was up at 4 AM and apparently was normal at that time. He denies any previous similar incidents. He denies any problems with weakness of extremities or numbness. He is able to ambulate without any difficulty. He denies any visual disturbances. He was just discharged from the hospital recently after being admitted for COPD. His breathing has significantly improved. The speech is improving as compared to previous. He denies any other complaints or modifying factors. - Related Data Home Medications Medication Instructions Recorded Confirmed Fluticasone/Salmeterol [Advair 1 puff INHALATION RT-BID 10/09/16 05/29/17 250-50 Diskus] Tiotropium 18 Mcg/Puff [Spiriva] 1 cap INHALATION RT-DAILY 10/09/16 05/29/17 HYDROcodone/APAP 10-325MG [Abiquiu 1 tab PO QID PRN 01/05/17 05/29/17 10-325] Montelukast [Singulair] 10 mg PO HS 01/05/17 05/29/17 Multivit-Min/FA/Lycopen/Lutein 1 tab PO DAILY 01/27/17 05/29/17 [Centrum Silver Men Tablet] buPROPion HCL [Wellbutrin SR] 100 mg PO BID 03/30/17 05/29/17 Epoetin Joe [Procrit] 20,000 unit INJ WE 05/22/17 05/29/17 predniSONE See Taper PO DAILY 05/29/17 05/29/17 Previous Rx's Medication Instructions Recorded Docusate [Colace] 100 mg PO BID PRN #30 cap 05/26/17 Ipratropium-Albuterol Nebulize 3 ml INHALATION RT-QID #0 05/27/17 [Duoneb 0.5 mg-3 mg/3 ml Soln] Levofloxacin [Levaquin] 750 mg PO DAILY 5 Days #5 tab 05/27/17 Nicotine 14Mg/24Hr Patch [Habitrol] 1 patch TRANSDERM DAILY #30 patch 05/27/17 Allergies Allergy/AdvReac Type Severity Reaction Status Date / Time No Known Allergies Allergy Verified 05/29/17 10:23 Review of Systems ROS Statement: Those systems with pertinent positive or pertinent negative responses have been documented in the HPI. ROS Other: All systems not noted in ROS Statement are negative. Past Medical History Past Medical History: Cancer, COPD, Memory Impairment, Pneumonia, Prostate Disorder Additional Past Medical History / Comment(s): abdominal aortic aneurysm, difficulties with memory, history of pnuemothorx price chest tube insertion and pleurodesis. BPH and chronic degenerative arthritis home 02 - 2L, MDS History of Any Multi-Drug Resistant Organisms: None Reported Additional Past Surgical History / Comment(s): spontaneous pneumo thorax (L x1, Rx2) Past Anesthesia/Blood Transfusion Reactions: No Reported Reaction Additional Past Anesthesia/Blood Transfusion Reaction / Comment(s): pt stated he moved here from [place] a year ago. lives alone in [facility]-no steps. no outside services received. has home 02 /[facility]. no pets. no past service. 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 Past Psychological History: Anxiety, Depression Smoking Status: Current some day smoker Past Alcohol Use History: None Reported Past Drug Use History: None Reported - Past Family History Father History Unknown: Yes Mother Family Medical History: Cancer, Coronary Artery Disease (CAD) Additional Family Medical History / Comment(s): lung cancer, lymphoma. General Exam - General Exam Comments Initial Comments: GENERAL: The patient is well nourished and well hydrated. VITAL SIGNS: Heart rate, blood pressure, respiratory rate reviewed as recorded in nurse's notes. EYES: Pupils are round and reactive. Extraocular movements are intact. No conjunctival / lid redness or swelling. ENT: No external evidence of injury, swelling, or ecchymosis. Airway is patent. Throat is clear. NECK: Nontender. No swelling or evidence of injury. No subcutaneous emphysema. Trachea is midline. No thyroid mass. HEART: Regular rate and rhythm. Good peripheral pulses. LUNGS/CHEST: Breath sounds clear and equal bilaterally. No rales, rhonchi, or wheezes. No ecchymosis, subcutaneous emphysema, or tenderness. ABDOMEN: Abdomen soft without tenderness. No palpable masses or organomegaly. No peritoneal signs. No abdominal wall swelling or ecchymosis. EXTREMITIES: No extremity tenderness. Normal muscle tone and function. No thoracolumbar tenderness. NEUROLOGIC: Sensation is grossly intact. There is a slight possibility of a right facial droop at the corner of the mouth but this is difficult to definitely determine being present. Strength is intact bilaterally. SKIN: No abrasions or ecchymosis is noted. No induration or masses noted. PSYCHIATRIC: Alert and oriented. Appropriate behavior and judgment. Limitations: no limitations Course Vital Signs 05/29/17 05/29/17 05/29/17 10:05 10:20 10:35 Temperature 97 F L Pulse Rate 94 90 95 Respiratory 16 16 16 Rate Blood Pressure 109/54 92/65 92/65 O2 Sat by Pulse 98 99 99 Oximetry 05/29/17 05/29/17 10:56 11:15 Temperature 97.2 F L Pulse Rate 83 95 Respiratory 16 16 Rate Blood Pressure 93/55 101/57 O2 Sat by Pulse 100 95 Oximetry Medical Decision Making - Medical Decision Making The patient was seen and examined. All diagnostics were reviewed. An IV is established. He is placed on a equipment monitor phototypesetting no ectopy is identified. The EKG shows a normal sinus rhythm at a rate of 83. There is no acute ST-T wave changes identified. The FL intervals 150, QRS duration is 82, and the QTc interval is 397. The non-contrasted computed tomography scan of the brain does show some age-related atrophic and chronic small vessel ischemic changes without acute intracranial process seen at this time. The laboratory shows that his hemoglobin is low at 9.2 but this is chronic and improved upon previous. Remainder labs essentially within normal limits. His blood pressure was fairly low initially and he receives ample fluid hydration. The chest x- ray did not show any acute processes. The computed tomography angiogram of the brain does not show any acute processes. The patient also had a CT a of the neck which did show some 50% diameter reduction in the left ICA. On recheck, his symptoms are the same. The possibility of a CVA is possible. Appears very mild at this time. He only has a NIH stroke scale of 2. It is not felt as though is a TPA candidate as his symptoms onset were at 4 AM. Nevertheless, it is felt as though he may benefit from additional inpatient workup. Of note, his blood pressure was running low but he states that he does normally run quite low. Case will be discussed with internal medicine shortly. - Lab Data Result diagrams: 05/29/17 10:25 05/29/17 10:25 Lab Results 05/29/17 05/29/17 05/29/17 Range/Units 10:25 10:25 10:25 WBC 7.0 (3.8-10.6) k/uL RBC 2.74 L (4.30-5.90) m/uL Hgb 9.2 L (13.0-17.5) gm/dL Hct 30.1 L (39.0-53.0) % MCV 109.8 H (80.0-100.0) fL MCH 33.6 (25.0-35.0) pg MCHC 30.6 L (31.0-37.0) g/dL RDW 19.3 H (11.5-15.5) % Plt Count 293 (150-450) k/uL Neutrophils % 61 % Lymphocytes % 29 % Monocytes % 6 % Eosinophils % 1 % Basophils % 1 % Neutrophils # 4.3 (1.3-7.7) k/uL Lymphocytes # 2.1 (1.0-4.8) k/uL Monocytes # 0.4 (0-1.0) k/uL Eosinophils # 0.0 (0-0.7) k/uL Basophils # 0.1 (0-0.2) k/uL Manual Slide Review Performed Toxic Granulation Present Polychromasia Present Hypochromasia Moderate Poikilocytosis (manual Present Anisocytosis Slight Macrocytosis Marked PT (9.0-12.0) sec INR (<1.2) APTT (22.0-30.0) sec Sodium 136 L (137-145) mmol/L Potassium 4.1 (3.5-5.1) mmol/L Chloride 100 (98-107) mmol/L Carbon Dioxide 30 (22-30) mmol/L Anion Gap 6 mmol/L BUN 29 H (9-20) mg/dL Creatinine 0.74 (0.66-1.25) mg/dL Est GFR (MDRD) Af Amer >60 (>60 ml/min/1.73 sqM) Est GFR (MDRD) Non-Af >60 (>60 ml/min/1.73 sqM) Glucose 87 (74-99) mg/dL POC Glucose (mg/dL) (75-99) mg/dL POC Glu Retail Service Technician ID Calcium 8.7 (8.4-10.2) mg/dL Total Bilirubin 0.8 (0.2-1.3) mg/dL AST 25 (17-59) U/L ALT 31 (21-72) U/L Alkaline Phosphatase 64 (38-126) U/L Total Creatine Kinase 30 L (55-170) U/L CK-MB (CK-2) 0.5 (0.0-2.4) ng/mL CK-MB (CK-2) Rel Index 1.7 Troponin I 0.016 (0.000-0.034) ng/mL Total Protein 5.9 L (6.3-8.2) g/dL Albumin 3.0 L (3.5-5.0) g/dL 05/29/17 05/29/17 Range/Units 10:25 11:02 WBC (3.8-10.6) k/uL RBC (4.30-5.90) m/uL Hgb (13.0-17.5) gm/dL Hct (39.0-53.0) % MCV (80.0-100.0) fL MCH (25.0-35.0) pg MCHC (31.0-37.0) g/dL RDW (11.5-15.5) % Plt Count (150-450) k/uL Neutrophils % % Lymphocytes % % Monocytes % % Eosinophils % % Basophils % % Neutrophils # (1.3-7.7) k/uL Lymphocytes # (1.0-4.8) k/uL Monocytes # (0-1.0) k/uL Eosinophils # (0-0.7) k/uL Basophils # (0-0.2) k/uL Manual Slide Review Toxic Granulation Polychromasia Hypochromasia Poikilocytosis (manual Anisocytosis Macrocytosis PT 10.2 (9.0-12.0) sec INR 1.0 (<1.2) APTT 21.4 L (22.0-30.0) sec Sodium (137-145) mmol/L Potassium (3.5-5.1) mmol/L Chloride (98-107) mmol/L Carbon Dioxide (22-30) mmol/L Anion Gap mmol/L BUN (9-20) mg/dL Creatinine (0.66-1.25) mg/dL Est GFR (MDRD) Af Amer (>60 ml/min/1.73 sqM) Est GFR (MDRD) Non-Af (>60 ml/min/1.73 sqM) Glucose (74-99) mg/dL POC Glucose (mg/dL) 81 (75-99) mg/dL POC Glu Retail Service Technician ID Francois Griffin Calcium (8.4-10.2) mg/dL Total Bilirubin (0.2-1.3) mg/dL AST (17-59) U/L ALT (21-72) U/L Alkaline Phosphatase (38-126) U/L Total Creatine Kinase (55-170) U/L CK-MB (CK-2) (0.0-2.4) ng/mL CK-MB (CK-2) Rel Index Troponin I (0.000-0.034) ng/mL Total Protein (6.3-8.2) g/dL Albumin (3.5-5.0) g/dL Disposition Clinical Impression: Slurred speech, Facial droop, COPD (chronic obstructive pulmonary disease), Chronic anemia, Tobacco abuse, CVA (cerebral vascular accident), Hypotension Disposition: ADMITTED IP TO THIS HOSP Condition: Fair Referrals: Yang Corrigan DO [Primary Care Provider] - 1-2 days Time of Disposition: 12:18 Decision Date: 05/29/17 Decision Time: 12:18
--- NOTE | 2017-05-29 11:41 | CT ---
EXAMINATION TYPE: CT angio head neck DATE OF EXAM: 05/29/2017 COMPARISON: NONE HISTORY: Patient complains of episode of slurred speech last night. CT DLP: 238.9 mGycm CONTRAST: Performed with IV Contrast, patient injected with 60 mL of Omnipaque 350. Combination Contrast CTA cervical carotids and [place] CTA cervical carotids with 3-D recons truction Contrast CTA of the cervical carotids was performed 3-D reconstruction imaging obtained at a separate workstation. Right carotid system: Mild plaque is seen of the right common carotid artery. There is mild plaque a lso noted at the carotid bulb and proximal ICA. No significant diameter reduction. ECA is patent. Right vertebral artery appears unremarkable. Left carotid system: Mild plaque is seen of the left common carotid artery. There is mild plaque als o noted at the carotid bulb and proximal ICA. Reduction is estimated at 50%. ECA is patent. Left ve rtebral artery appears unremarkable. Extensive upper lobe scarring is seen within both lung levine right greater than left. IMPRESSION: 1. No significant diameter reduction to account for the patient's symptoms. Estimated 50% diameter re duction left ICA. CTA [place] with 3-D reconstruction Contrast CTA of the [place] was performed 3-D reconstruction imaging obtained at a separate workstation. Vertebrobasilar system as well as intracranial portions of the internal carotid arteries and their [place] tributaries are patent. I do not see evidence for sizable aneurysm or vascular malformation. Pl ease note MRI provides greater sensitivity and specificity. Visualized brain appears grossly unremar kable. IMPRESSION: 1. No significant abnormality.
--- NOTE | 2017-05-29 12:04 | XR ---
EXAMINATION TYPE: XR chest 2V DATE OF EXAM: 05/29/2017 COMPARISON: 05/24/2017 HISTORY: Shortness of breath TECHNIQUE: Frontal and lateral views of the chest are obtained. FINDINGS: Extensive upper lobe right greater than left postinflammatory change of hilar retraction. Surgical louis tures right apical region noted as well. Superimposed fibrosis greatest at the lung bases. Scattered senescent parenchymal changes noted. Hyperinflation compatible with COPD. No evidence for infiltrate. No evidence for atelectasis. Heart size is stable. Mediastinal structures are stable and grossly unremarkable. No evidence for hilar prominence. Degenerative changes dorsal spine. IMPRESSION: 1. No evidence for acute pulmonary disease.
[2017-05-29] MEDS ORDERED: DOCUSATE 100 MG CAP PO PRN (12:25)
[2017-05-29] MEDS ORDERED: ASPIRIN 81 MG PO STA (12:25)
[2017-05-29] MEDS: LEVOFLOXACIN 750 MG TAB PO SCH (14:29)
--- NOTE | 2017-05-29 14:29 | ECHOF ---
Referral Reason:Thrombus MEASUREMENTS -------- HEIGHT: 180.3 cm WEIGHT: 63.5 kg BP: RVIDd: 2.1 cm (< 3.3) IVSd: 1.0 cm (0.6 - 1.1) LVIDd: 2.6 cm (3.9 - 5.3) LVPWd: 1.1 cm (0.6 - 1.1) IVSs: 1.3 cm LVIDs: 1.7 cm LVPWs: 1.6 cm Ao Diam: 3.8 cm (2.0 - 3.7) AV Cusp: 2.2 cm (1.5 - 2.6) LA Diam: 2.5 cm (2.7 - 3.8) MV EXCURSION: 14.577 mm (> 18.000) MV EF SLOPE: 58 mm/s (70 - 150) EPSS: 1.2 cm MV E Jose Roberto: 0.62 m/s MV DecT: 206 ms MV A Jose Roberto: 0.90 m/s MV E/A Ratio: 0.69 RAP: 5.00 mmHg RVSP: 10.99 mmHg FINDINGS -------- Resting tachycardia (HR>100bpm). This was a technically adequate study. The left ventricular size is normal. Overall left ventricular systolic function is normal with, an EF between 55 - 60 %. The right ventricle is normal in size. The left atrium is normal in size. The right atrium is normal in size. Aortic valve is trileaflet and is mildly thickened. Mild mitral annular calcification present. Mild mitral regurgitation is present. Mild tricuspid regurgitation present. The right ventricular systolic pressure, as measured by Doppl er, is 10.99mmHg. Pulmonic valve appears structurally normal. The aortic root is mildy dilated. The pericardium is normal. CONCLUSIONS -------- 1. Resting tachycardia (HR>100bpm). 2. This was a technically adequate study. 3. The left ventricular size is normal. 4. Overall left ventricular systolic function is normal with, an EF between 55 - 60 %. 5. The right ventricle is normal in size. 6. The left atrium is normal in size. 7. The right atrium is normal in size. 8. Aortic valve is trileaflet and is mildly thickened. 9. Mild mitral annular calcification present. 10. Mild mitral regurgitation is present. 11. Mild tricuspid regurgitation present. 12. The right ventricular systolic pressure, as measured by Doppler, is 10.99mmHg. 13. Pulmonic valve appears structurally normal. 14. The aortic root is mildy dilated. 15. The pericardium is normal. HELICOPTER TECHNICIAN: Marta Mcdermott RDCS
[2017-05-29] MEDS: HYDROcodone/APAP 10-325MG 1 EACH TAB PO PRN ×2 (14:31→21:05)
[2017-05-29 14:35] LABS: Appearance,Urine Clear (Clear); Bilirubin,Urine Negative (Negative); Blood,Urine Negative (Negative); Color,Urine Light Yellow; Glucose,Urine (UA) Negative (Negative); Ketones,Urine Negative (Negative); Leukocyte Esterase,Urine Negative (Negative); Nitrite,Urine Negative (Negative); Protein,Urine Negative (Negative); Specific Gravity,Urine 1.025 (1.001-1.035); Urobilinogen,Urine <2.0 mg/dL (<2.0)
[2017-05-29] MEDS: IPRATROPIUM-ALBUTEROL 3 ML NEB INHALATION SCH ×2 (15:48→20:28)
[2017-05-29] MEDS: SYMBICORT 80-4.5 MCG INHALER INHALATION SCH (20:28)
[2017-05-29] MEDS: buPROPion SR 100 MG TABLET.ER PO SCH (21:05)
[2017-05-29] MEDS: MONTELUKAST 10 MG TAB PO SCH (21:05)
[2017-05-29] MEDS: FAMOTIDINE 20 MG/2 ML VIAL IV SCH (21:05)
[2017-05-30] MEDS: HYDROcodone/APAP 10-325MG 1 EACH TAB PO PRN ×4 (03:26→21:58)
[2017-05-30 06:21] LABS: Anisocytosis Slight; Basophils % (A) 0 %; Eosinophils # (A) 0.1 k/uL (0-0.7); Eosinophils % (A) 1 %; HCT 28.1 % (39.0-53.0); HGB 8.7 gm/dL (13.0-17.5); Hypochromasia Marked; Lymphocytes # (A) 1.3 k/uL (1.0-4.8); Lymphocytes % (A) 20 %; MCH 34.5 pg (25.0-35.0); MCHC 30.8 g/dL (31.0-37.0); MCV 112.2 fL (80.0-100.0); Macrocytosis Marked; Mean Platelet Volume 8.5; Monocytes # (A) 0.4 k/uL (0-1.0); Monocytes % (A) 6 %; Neutrophils # (A) 4.7 k/uL (1.3-7.7); Neutrophils % (A) 71 %; Platelet Count 231 k/uL (150-450); RBC 2.51 m/uL (4.30-5.90); RDW 19.5 % (11.5-15.5); WBC 6.5 k/uL (3.8-10.6)
[2017-05-30 06:41] LABS: Anion Gap 5 mmol/L; Blood Urea Nitrogen 24 mg/dL (9-20); Calcium 8.5 mg/dL (8.4-10.2); Carbon Dioxide 32 mmol/L (22-30); Chloride 99 mmol/L (98-107); Cholesterol 103 mg/dL (<200); Glucose 89 mg/dL (74-99); HDL Cholesterol 53 mg/dL (40-60); LDL Cholesterol,Calculated 40 mg/dL (0-99); Potassium 4.8 mmol/L (3.5-5.1); Sodium 136 mmol/L (137-145); Triglycerides 50 mg/dL (<150)
--- NOTE | 2017-05-30 07:49 | HP ---
HISTORY AND PHYSICAL DATE OF SERVICE: 05/29/2017 CHIEF COMPLAINTS: Slurring of speech and left facial deviation. HISTORY OF PRESENT ILLNESS: This 51-year-old gentleman with a past medical history of multiple medical problems including COPD, history of memory impairment, history of tracheobronchitis, history of bilateral pleurodesis being followed by Dr. Corrigan in the outpatient setting was noted to have significant facial droop on the on the left side and as well as some slurring speech today. The patient had symptoms this morning. EMS was called and the patient taken to [facility] and was admitted for further evaluation and treatment. There is no history of any fever or rigors. No headache, loss of consciousness or seizures. The slurring has improved significantly. There is some problems according to him. After admission in the ER, the patient had CT scan of the brain, which showed age-related atrophic changes and the patient also had a CTA to rule out the possibility of an acute thrombosis, which also did not show any acute abnormality. A 2-D echo with Doppler showed ejection fraction of 50% to 60%. There is no history of fever, rigors. No history headache, loss of consciousness, seizures. PAST MEDICAL HISTORY: History of COPD, history of memory impairment, history of pneumonia, history of prostate disorder, history of bilateral pleurodesis. MEDICATIONS: Medications prior to admission include home medications are: 1. Prednisone taper daily. 2. Levaquin 750 p.o. daily. 3. Colace 100 mg p.o. b.i.d. p.r.n. 4. Wellbutrin XR 100 mg p.o. b.i.d. 5. Spiriva 1 puff daily. 6. Habitrol daily. 7. Centrum 1 p.o. daily. 8. Singular 10 mg q.h.s. 9. DuoNeb q.i.d. 10.[place] 10 mg q.i.d. p.r.n. 11.Advair 250/50 one puff b.i.d. 12.Procrit 20,000 injection on Friday. ALLERGIES: Allergies are none. FAMILY HISTORY: History of cancer, CAD, lung cancer in the family. SOCIAL HISTORY: History of smoking, continues smoking. No history of alcohol intake. Patient is trying to quit according to him. REVIEW OF SYSTEMS: ENT: No diminished hearing or diminished vision, otherwise as mentioned earlier. CARDIOVASCULAR SYSTEM: No angina or palpitations. RESPIRATORY SYSTEM: As mentioned earlier. GI: No nausea. : No dysuria. NERVOUS SYSTEM: No numbness or weakness. ALLERGY/IMMUNOLOGY: No history of asthma. MUSCULOSKELETAL: As mentioned earlier. HEMATOLOGY/ONCOLOGY: No history of anemia. ENDOCRINE: No history of diabetes, hypothyroidism. CONSTITUTIONAL: As mentioned earlier. DERMATOLOGY: Negative. RHEUMATOLOGY: Negative. PSYCHIATRY: As mentioned earlier. PHYSICAL EXAMINATION: The patient is alert and oriented x3. Pulse is 99, blood pressure 96/53, respiration 20, temperature 96.3, pulse ox 99% on 2 L. HEENT: Conjunctivae normal. Oral mucosa moist. Neck is no jugular venous distention. No carotid bruit. No lymph node enlargement. CARDIOVASCULAR: S1 and S2 muffled. No S3, no S4. RESPIRATORY: Breath sounds diminished at the bases. A few scattered rhonchi and crackles. ABDOMEN: Soft, nontender. No mass palpable. LEGS: No edema, no swelling. NERVOUS SYSTEM: Higher functions as mentioned earlier. Minimal facial deviation on the left side. Otherwise no other focal motor or sensory deficits. Moves all 4 limbs. dysfunction. LYMPHATICS: No lymphadenopathy of the neck, axillae or groin. SKIN: No ulcer, rash or bleeding. JOINTS: No active deforming arthropathy. LABS: WBC 7, hemoglobin 9.2. Other labs are noted. ASSESSMENT: 1. Slurring of speech and facial deviation, possible acute transient ischemic attack, rule out stroke. 2. History of memory impairment. 3. Chronic obstructive pulmonary disease. 4. History of prostate disorder. 5. History of MDS. 6. History of macrocytic anemia. 7. History of chronic hypoxic respiratory failure on home oxygen 2 L nasal cannula. 8. History abdominal aortic aneurysm. 9. Bilateral spontaneous pneumothorax. 10.Anxiety, depression. RECOMMENDATIONS AND DISCUSSION: This 51-year-old gentleman who presented with multiple complex medical issues, we will monitor the patient closely. Continue the current medications, continue symptomatic treatment. Otherwise at this time I will recommend antiplatelet agents, resume the home medications, neurovascular workup, neurology consultation and neuro checks. Prognosis guarded because of multiple complex medical issues. Further recommendations to follow. Smoking cessation has been advised, discussed with patient, understands and agrees. A copy of dictation forwarded to Dr. Corrigan who is the primary physician. MMODL / IJN: [id number] / NILAY
[2017-05-30] MEDS ORDERED: NON-FORMULARY DRUG (Tiotropium 18 Mcg/Puff 1 CAP) INHALATION SCH (08:00)
[2017-05-30] MEDS: IPRATROPIUM-ALBUTEROL 3 ML NEB INHALATION SCH ×4 (08:53→20:06)
[2017-05-30] MEDS: SYMBICORT 80-4.5 MCG INHALER INHALATION SCH ×2 (08:55→20:06)
[2017-05-30] MEDS: predniSONE 20 MG TAB PO SCH (08:57)
[2017-05-30] MEDS: ASPIRIN 325 MG TAB PO SCH (08:57)
[2017-05-30] MEDS: ENOXAPARIN 40 MG/0.4 ML SYRINGE SQ SCH (08:57)
[2017-05-30] MEDS: buPROPion SR 100 MG TABLET.ER PO SCH ×2 (08:58→20:11)
[2017-05-30] MEDS: FAMOTIDINE 20 MG/2 ML VIAL IV SCH (08:58)
[2017-05-30] MEDS: NICOTINE 14MG/24HR PATCH TRANSDERM SCH (11:01)
[2017-05-30] MEDS: MULTIVITAMINS, THERA 1 EACH TAB PO SCH (11:02)
[2017-05-30] MEDS: LEVOFLOXACIN 750 MG TAB PO SCH (11:44)
--- NOTE | 2017-05-30 15:22 | EEG ---
ELECTROENCEPHALOGRAM REPORT DATE OF SERVICE: 05/30/2017 REASON FOR TESTING: Stroke. DESCRIPTION OF THE PROCEDURE: This EEG was performed using a 21-channel digital electroencephalograph, following international 10-20 system. DESCRIPTION OF THE RECORDING: From the beginning of the tracing, and with patient's eyes closed, the background rhythm was mostly consisting of 8 Hz alpha frequency in the posterior occipital leads. No obvious asymmetry is seen. Photic stimulation was performed with a good driving response seen. No pathological waves were elicited. Occasional movement artifacts are seen. Hyperventilation was not performed. The patient remains awake throughout the tracing. No epileptiform discharges were seen. His EKG lead showed a regular rate and rhythm. INTERPRETATION: This awake EEG can be considered within normal limits. There was no asymmetry seen. No epileptiform discharges were noticed. The absence of epileptiform discharges does not rule out the diagnosis of epilepsy; therefore clinical correlation is recommended. RICHARD / MAYNOR: [id number] /
[2017-05-30] MEDS: MONTELUKAST 10 MG TAB PO SCH (20:11)
[2017-05-30] MEDS: FAMOTIDINE 20 MG TAB PO SCH (20:13)
[2017-05-30] MEDS ORDERED: ATORVASTATIN 20 MG TAB PO SCH (21:00)
--- NOTE | 2017-05-30 21:07 | P.PN ---
Subjective Progress Note Date: 05/30/17 Principal diagnosis: Slurred speech, right facial droop Patient was off floor for testing at time of consult. Neruology to evaluate patient on 05/31/17. NIKO [facility] Objective - Vital Signs Vital signs: Vital Signs Temp 97.5 F L 05/30/17 16:00 Pulse 93 05/30/17 20:17 Resp 16 05/30/17 20:17 BP 94/50 05/30/17 16:00 Pulse Ox 99 05/30/17 16:16 Intake & Output 05/30/17 05/30/17 05/31/17 06:59 18:59 06:59 Intake Total 740 1240 Output Total 2000 800 Balance -1260 440 Weight 63.3 kg Intake: Intake, IV Titration 500 Amount Sodium Chloride 0.9% 1, 500 000 ml @ 100 mls/hr IV . Q10H STA Rx#:[id number] Oral 240 1240 Output: Urine 2000 800 Stool 0 Other: Voiding Method Toilet # Voids 2 2 # Emeses 0 - Labs CBC & Chem 7: 05/30/17 06:00 05/30/17 06:00 Labs: Abnormal Lab Results - Last 24 Hours (Table) 05/30/17 05/30/17 Range/Units 06:00 06:00 RBC 2.51 L (4.30-5.90) m/uL Hgb 8.7 L (13.0-17.5) gm/dL Hct 28.1 L (39.0-53.0) % MCV 112.2 H (80.0-100.0) fL MCHC 30.8 L (31.0-37.0) g/dL RDW 19.5 H (11.5-15.5) % Sodium 136 L (137-145) mmol/L Carbon Dioxide 32 H (22-30) mmol/L BUN 24 H (9-20) mg/dL
--- NOTE | 2017-05-30 22:34 | PN ---
PROGRESS NOTE DATE OF SERVICE: 05/30/2017 This 51-year-old gentleman who was admitted with slurring of speech and other issues was being closely monitored by Neurology, who recommended 24 more hours of followup. No gait dysfunction noted. The patient also had a facial droop prior to admission, which is improving at this time. There is no chest pain. No palpitations. No fever. PHYSICAL EXAMINATION: Alert and oriented x3. Pulse 92, blood pressure 94/50, respiration 20, temperature 97.2, pulse ox 100% on 2 L. HEENT: Conjunctivae normal. NECK: No jugular venous distention. CARDIOVASCULAR SYSTEM: S1, S2 muffled. RESPIRATORY SYSTEM: Breath sounds diminished at the bases. A few rhonchi. No crackles. ABDOMEN: Soft, nontender. LEGS: No edema. No swelling. NERVOUS SYSTEM: No focal deficit. Cranial nerves 2 through 12 grossly intact. SKIN: No ulcer, rash, bleeding. LABS: WBC 6.3, hemoglobin 8; sodium 136. ASSESSMENT: 1. Slurring of speech and facial deviation, possible acute transient ischemic attack; stroke unlikely. 2. History of memory impairment. 3. Chronic obstructive pulmonary disease, stable. 4. History of prostate disorder. 5. History of MDS. 6. History of microcytic anemia. 7. History of chronic hypoxic respiratory failure, on home oxygen at 2 L nasal cannula. 8. History of abdominal aortic aneurysm. 9. Bilateral spontaneous pneumothorax. 10.Anxiety, depression. RECOMMENDATIONS AND DISCUSSION: I recommend to continue current medication, continue symptomatic treatment. Continue with the neuro checks and closely follow with Neurology, who would like to follow the patient for 24 more hours. Further recommendations to follow. MMODL / IJN: [id number] /
[2017-05-31] MEDS: HYDROcodone/APAP 10-325MG 1 EACH TAB PO PRN ×2 (03:57→08:52)
[2017-05-31 04:58] VITALS: RESP 18
[2017-05-31 06:28] LABS: Anisocytosis Slight; Basophils % (A) 1 %; Eosinophils % (A) 0 %; HCT 28.6 % (39.0-53.0); HGB 8.7 gm/dL (13.0-17.5); Hypochromasia Marked; Lymphocytes # (A) 1.4 k/uL (1.0-4.8); Lymphocytes % (A) 20 %; MCH 33.8 pg (25.0-35.0); MCHC 30.4 g/dL (31.0-37.0); MCV 111.1 fL (80.0-100.0); Macrocytosis Marked; Monocytes # (A) 0.3 k/uL (0-1.0); Monocytes % (A) 5 %; Neutrophils # (A) 5.1 k/uL (1.3-7.7); Neutrophils % (A) 72 %; Platelet Count 222 k/uL (150-450); RBC 2.57 m/uL (4.30-5.90); RDW 19.7 % (11.5-15.5); WBC 7.1 k/uL (3.8-10.6)
[2017-05-31 07:11] LABS: Anion Gap 4 mmol/L; Blood Urea Nitrogen 27 mg/dL (9-20); Calcium 8.8 mg/dL (8.4-10.2); Carbon Dioxide 35 mmol/L (22-30); Chloride 97 mmol/L (98-107); Glucose 113 mg/dL (74-99); Potassium 4.3 mmol/L (3.5-5.1); Sodium 136 mmol/L (137-145)
[2017-05-31] MEDS: ASPIRIN 325 MG TAB PO SCH (08:52)
[2017-05-31] MEDS: ENOXAPARIN 40 MG/0.4 ML SYRINGE SQ SCH (08:52)
[2017-05-31] MEDS: NICOTINE 14MG/24HR PATCH TRANSDERM SCH (08:52)
[2017-05-31] MEDS: predniSONE 20 MG TAB PO SCH (08:52)
[2017-05-31] MEDS: FAMOTIDINE 20 MG TAB PO SCH (08:52)
[2017-05-31] MEDS: buPROPion SR 100 MG TABLET.ER PO SCH (08:52)
[2017-05-31 09:37] VITALS: BMI 18.6
[2017-05-31] MEDS: IPRATROPIUM-ALBUTEROL 3 ML NEB INHALATION SCH ×2 (09:58→13:46)
[2017-05-31] MEDS: SYMBICORT 80-4.5 MCG INHALER INHALATION SCH (09:58)
[2017-05-31] MEDS: MULTIVITAMINS, THERA 1 EACH TAB PO SCH (11:42)
[2017-05-31] MEDS: LEVOFLOXACIN 750 MG TAB PO SCH (11:42)
[2017-05-31 11:53] VITALS: BP 93/58; TEMP 97.7
--- NOTE | 2017-05-31 12:30 | P.DS ---
Providers Date of admission: 05/29/17 12:22 Attending physician: Blake Cherry Consults: 05/29/17 12:23 Consult Physician Routine Consulting Provider: Ginny Calderon Consult Reason/Comments: right facial droop and slurred speech Do you want consulting provider notified?: Yes Primary care physician: [facility] Course: 51-year-old gentleman was admitted secondary to facial droop on the right side and possible transitory ischemic attack involving the left cerebral hemisphere and speech abnormality although which resolved. Patient is being discharged on aspirin, patient doesn't take aspirin at home, is being discharged on statin. Patient was discharged on Lovenox for his pneumonia which she'll complete the course of therapy patient is also on weaning dose of prednisone does have history of COPD does use oxygen at home not in acute exacerbation at this point of time. PHYSICAL EXAMINATION: GENERAL: The patient is alert and oriented x3, not in any acute distress. Well developed, well nourished. HEENT: Pupils are round and equally reacting to light. EOMI. No scleral icterus. No conjunctival pallor. Normocephalic, atraumatic. No pharyngeal erythema. No thyromegaly. CARDIOVASCULAR: S1 and S2 present. No murmurs, rubs, or gallops. PULMONARY: Chest is clear to auscultation, no wheezing or crackles. ABDOMEN: Soft, nontender, nondistended, normoactive bowel sounds. No palpable organomegaly. MUSCULOSKELETAL: No joint swelling or deformity. EXTREMITIES: No cyanosis, clubbing, or pedal edema. NEUROLOGICAL: Gross neurological examination did not reveal any focal deficits. SKIN: No rashes. The rest of the chronic medical problems and hospital course please refer to Dr. Cherry's dictation from yesterday Patient Condition at Discharge: Fair Plan - Discharge Summary Discharge Rx Participant: No New Discharge Prescriptions: New Aspirin EC [Ecotrin Low Dose] 81 mg PO DAILY #30 tablet. Atorvastatin [Lipitor] 20 mg PO HS #30 tab predniSONE 10 mg PO DIRECTED #30 tab Continue Tiotropium 18 Mcg/Puff [Spiriva] 1 cap INHALATION RT-DAILY Fluticasone/Salmeterol [Advair 250-50 Diskus] 1 puff INHALATION RT-BID Montelukast [Singulair] 10 mg PO HS HYDROcodone/APAP 10-325MG [[place] 10-325] 1 tab PO QID PRN PRN Reason: Pain Multivit-Min/FA/Lycopen/Lutein [Centrum Silver Men Tablet] 1 tab PO DAILY buPROPion HCL [Wellbutrin SR] 100 mg PO BID Epoetin Joe [Procrit] 20,000 unit INJ WE Docusate [Colace] 100 mg PO BID PRN #30 cap PRN Reason: Constipation Levofloxacin [Levaquin] 750 mg PO DAILY 5 Days #5 tab Ipratropium-Albuterol Nebulize [Duoneb 0.5 mg-3 mg/3 ml Soln] 3 ml INHALATION RT-QID #0 Nicotine 14Mg/24Hr Patch [Habitrol] 1 patch TRANSDERM DAILY #30 patch Discontinued predniSONE See Taper PO DAILY Discharge Medication List Fluticasone/Salmeterol [Advair 250-50 Diskus] 1 puff INHALATION RT-BID 10/09/16 [History] Tiotropium 18 Mcg/Puff [Spiriva] 1 cap INHALATION RT-DAILY 10/09/16 [History] HYDROcodone/APAP 10-325MG [[place] 10-325] 1 tab PO QID PRN 01/05/17 [History] Montelukast [Singulair] 10 mg PO HS 01/05/17 [History] Multivit-Min/FA/Lycopen/Lutein [Centrum Silver Men Tablet] 1 tab PO DAILY [History] buPROPion HCL [Wellbutrin SR] 100 mg PO BID 03/30/17 [History] Epoetin Joe [Procrit] 20,000 unit INJ WE 05/22/17 [History] Docusate [Colace] 100 mg PO BID PRN #30 cap 05/26/17 [Rx] Ipratropium-Albuterol Nebulize [Duoneb 0.5 mg-3 mg/3 ml Soln] 3 ml INHALATION RT -QID #0 05/27/17 [Rx] Levofloxacin [Levaquin] 750 mg PO DAILY 5 Days #5 tab 05/27/17 [Rx] Nicotine 14Mg/24Hr Patch [Habitrol] 1 patch TRANSDERM DAILY #30 patch 05/27/17 [ Rx] Aspirin EC [Ecotrin Low Dose] 81 mg PO DAILY #30 tablet. 05/30/17 [Rx] Atorvastatin [Lipitor] 20 mg PO HS #30 tab 05/30/17 [Rx] predniSONE 10 mg PO DIRECTED #30 tab 05/30/17 [Rx] Follow up Appointment(s)/Referral(s): Ginny Calderon MD [STAFF PHYSICIAN] - 2 Weeks (Office is closed. Please call to make appointment. ) Yang Corrigan DO [Primary Care Provider] - 3 Days (PLease call to make appointment) Ambulatory/Diagnostic Orders: Complete Blood Count w/diff [LAB.AMB] Time Frame: 3 Days, Location: Determined By Patient Patient Instructions/Handouts: Transient Ischemic Attack (DC), Heart Healthy Diet (DC) Activity/Diet/Wound Care/Special Instructions: Activity: limited till F/U
--- NOTE | 2017-05-31 12:59 | P.CNNES ---
History of Present Illness Consult date: 05/30/17 Requesting physician: Louis Martínez Reason for Consult: TIA Chief complaint: slurred speech, right-sided facial droop History of Present Illness: Neurology is consulting on a 51-year-old male with slurred speech and right- sided facial droop on presentation at the ED. Patient was woken during sleep at approximately 4 AM with noted symptoms. Patient denies any previous symptoms or occurrences. Patient denied any problems with weakness in the upper or lower extremities. He was ambulatory without difficulty prior. Denies visual disturbances. He did have a recent hospitalization for COPD exacerbation. Since that time his breathing has significantly improved. Per patient his speech has returned to normal since presenting at the ED for treatment. Facial droop is also resolved. Patient states that he began using Procrit and has just completed his second when he has noted various sensory and motor changes since initiation. Patient is currently being seen by projection camera operator, Dr. French. He has not discussed these concerns with his projection camera operator yet. On contact, the patient was resting in bed comfortably, no acute distress, alert and oriented 3. Patient states that he has returned to baseline with no residual neurological deficits or changes. Review of Systems all systems not noted in HPI or negative. Past Medical History Past Medical History: Cancer, COPD, Liver Disease, Memory Impairment, Pneumonia , Prostate Disorder Additional Past Medical History / Comment(s): Pt recently admitted to [facility] on with tracheobronchitis. Other hx: MDS pt states diagnosed few months ago follows with Dr. French, macrocytic anemia, weekly epigen injections, chronic hypoxic respiratory failure, home O2 at 2L/NC ATC, abdominal aortic aneurysm, bilateral spontaneous pneumothorax (left once and right twice) with chest tubes and pleurodesis, degenerative arthritis, BPH. History of Any Multi-Drug Resistant Organisms: None Reported Additional Past Surgical History / Comment(s): Bilateral pleurodesis, BMA Past Anesthesia/Blood Transfusion Reactions: No Reported Reaction Additional Past Anesthesia/Blood Transfusion Reaction / Comment(s): pt stated he moved here from [place] a year ago. lives alone in [facility]-no steps. no outside services received. has home /[facility]. no pets. no past service. 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 Smoking Status: Current every day smoker - Past Family History Father History Unknown: Yes Mother Family Medical History: Cancer, Coronary Artery Disease (CAD) Additional Family Medical History / Comment(s): lung cancer, lymphoma. Medications and Allergies Home Medications Medication Instructions Recorded Confirmed Type Fluticasone/Salmeterol [Advair 1 puff INHALATION RT-BID 10/09/16 05/29/17 History 250-50 Diskus] Tiotropium 18 Mcg/Puff [Spiriva] 1 cap INHALATION RT-DAILY 10/09/16 05/29/17 History HYDROcodone/APAP 10-325MG [[place] 1 tab PO QID PRN 01/05/17 05/29/17 History 10-325] Montelukast [Singulair] 10 mg PO HS 01/05/17 05/29/17 History Multivit-Min/FA/Lycopen/Lutein 1 tab PO DAILY 01/27/17 05/29/17 History [Centrum Silver Men Tablet] buPROPion HCL [Wellbutrin SR] 100 mg PO BID 03/30/17 05/29/17 History Epoetin Joe [Procrit] 20,000 unit INJ WE 05/22/17 05/29/17 History Docusate [Colace] 100 mg PO BID PRN #30 cap 05/26/17 05/29/17 Rx Ipratropium-Albuterol Nebulize 3 ml INHALATION RT-QID #0 05/27/17 05/29/17 Rx [Duoneb 0.5 mg-3 mg/3 ml Soln] Levofloxacin [Levaquin] 750 mg PO DAILY 5 Days #5 tab 05/27/17 05/29/17 Rx Nicotine 14Mg/24Hr Patch [Habitrol] 1 patch TRANSDERM DAILY #30 patch 05/27/17 05/29/17 Rx Aspirin EC [Ecotrin Low Dose] 81 mg PO DAILY #30 tablet. 05/30/17 Rx Atorvastatin [Lipitor] 20 mg PO HS #30 tab 05/30/17 Rx predniSONE 10 mg PO DIRECTED #30 tab 05/30/17 Rx Allergies Allergy/AdvReac Type Severity Reaction Status Date / Time No Known Allergies Allergy Verified 05/29/17 10:23 Physical Examination - Vital Signs Vital Signs: Vital Signs Temp Pulse Pulse Resp BP Pulse Ox 05/31/17 11:42 97.7 F 88 18 93/58 99 05/31/17 10:10 92 05/31/17 09:59 92 05/31/17 08:56 98.3 F 96 18 85/50 100 05/31/17 04:00 96.9 F L 86 18 100/60 98 05/31/17 00:00 97.7 F 93 20 100/60 98 05/30/17 20:17 93 16 05/30/17 20:06 91 16 05/30/17 16:29 96 05/30/17 16:16 94 99 05/30/17 16:00 97.5 F L 92 20 94/50 100 Intake and Output 05/30/17 05/31/17 05/31/17 22:59 06:59 14:59 Intake Total 300 200 480 Output Total 400 500 Balance -100 -300 480 Intake: Oral 300 200 480 Output: Urine 400 500 Stool 0 Other: Voiding Method Toilet Toilet Urinal Urinal # Voids 1 2 # Emeses 0 Weight 62.1 kg 62.1 kg Patient Weight 06/01/17 06:59 Weight 62.1 kg Gen. appearance: Alert, in no apparent distress Head: Atraumatic normocephalic, normal inspection Eyes: Well appearance, PERRL, EOMI. absent: Scleral icterus, conjunctival injection, nystagmus, periorbital swelling. Ear nose and throat: Normal exam, mucous membranes moist Neck: Normal inspection. Absent tenderness, lymphadenopathy Respiratory: No increased work of breathing. Cardiovascular: Regular rate, normal rhythm GIabdominal: Normal bowel sounds, non distended, no tenderness, no guarding, no rebound, no rigidity. Extremities: All range of motion, normal capillary refill, no tenderness, pedal edema, joint swelling, calf tenderness Neurological: Alert and oriented 3, cranial nerves II through XII intact, no unilateral lateralizing weakness, no seizure activity noted on physical exam, no pronator drift and no nystagmus. Psychological: Mood and affect appropriate setting Results CT angiogram: Negative CT brain: Chronic small vessel ischemic disease, no acute process EEG: Negative - Laboratory Findings CBC and BMP: 05/31/17 06:07 05/31/17 06:07 Abnormal Lab Findings: Abnormal Labs 05/29/17 05/29/17 05/29/17 10:25 10:25 10:25 RBC 2.74 L Hgb 9.2 L Hct 30.1 L MCV 109.8 H MCHC 30.6 L RDW 19.3 H APTT Sodium 136 L Chloride Carbon Dioxide BUN 29 H Glucose Total Creatine Kinase 30 L Total Protein 5.9 L Albumin 3.0 L 05/29/17 05/30/17 05/30/17 10:25 06:00 06:00 RBC 2.51 L Hgb 8.7 L Hct 28.1 L MCV 112.2 H MCHC 30.8 L RDW 19.5 H APTT 21.4 L Sodium 136 L Chloride Carbon Dioxide 32 H BUN 24 H Glucose Total Creatine Kinase Total Protein Albumin 05/31/17 05/31/17 06:07 06:07 RBC 2.57 L Hgb 8.7 L Hct 28.6 L MCV 111.1 H MCHC 30.4 L RDW 19.7 H APTT Sodium 136 L Chloride 97 L Carbon Dioxide 35 H BUN 27 H Glucose 113 H Total Creatine Kinase Total Protein Albumin Assessment and Plan (1) TIA (transient ischemic attack) Current Visit: Yes Status: Acute Code(s): G45.9 - TRANSIENT CEREBRAL ISCHEMIC ATTACK, UNSPECIFIED SNOMED Code(s): 464941066 (2) Facial droop Current Visit: Yes Status: Acute Code(s): R29.810 - FACIAL WEAKNESS SNOMED Code(s): 82606095 (3) Slurred speech Current Visit: Yes Status: Acute Code(s): R47.81 - SLURRED SPEECH SNOMED Code(s): 956457200 Plan: 1. TIA 2. Facial droop 3. Slurred speech / expressive aphasia 4. Anemia, rule out medication reactionProcrit On physical exam and after speaking with the patient, does appear that the patient experienced a transient ischemic attack. It is noteworthy that the patient's symptoms began occurring to varying degrees and with varying presentation since starting Procrit. Medication does have a known adverse effect of thromboembolism and stroke. At this time the patient's imaging, laboratory testing diagnostic workup are all consistent with TIA. Recommend discussion with projection camera operator regarding use and evaluation of Procrit in the future. Patient was not on aspirin previously before hospitalization. The patient's TIA , we will continue aspirin 81 mg outpatient and defer to hematology to determine long-term use. Continue Lipitor 20 mg by mouth daily at bedtime as noted. Patient is cleared from a neurological standpoint for discharge. Patient will need to follow up with our office within 14 days of discharge for his hospital follow-up visit. If the need arises whether any questions, please contact our office. If any further assistance is needed in this patient's care please do not hesitate to contact us and we will be happy to assist. Dharmesh Campbell, DIRECTOR PHONE-C Neurology For Dr Ginny Calderon MD I discussed the patient's pertinent medical information as well as diagnostic testing, laboratory results and other pertinent medical information with Dr. Calderon prior to applying the plan as noted above. He agreed with the plan is implemented prior to implementation.
[2017-05-31 14:05] VITALS: PULSE 92
[2017-06-04] MEDS ORDERED: DARBEPOETIN ALFA 60 MCG/0.3 ML SYRINGE SQ SCH (09:00)
== END 2017-05-31 14:12 | disposition home or self-care (01) ==
LOC: EC 10:00 → 6SEL 12:22
PROVIDERS: ADMIT Hospitalist; ATTEND Hospitalist
DX: R29.810 Facial weakness (principal); R47.81 Slurred speech; J18.9 Pneumonia, unspecified organism; J44.9 Chronic obstructive pulmonary disease, unspecified; Z99.81 Dependence on supplemental oxygen; K76.9 Liver disease, unspecified; D46.9 Myelodysplastic syndrome, unspecified; J96.11 Chronic respiratory failure with hypoxia; N40.0 Benign prostatic hyperplasia without lower urinary tract symptoms; M19.90 Unspecified osteoarthritis, unspecified site; F17.200 Nicotine dependence, unspecified, uncomplicated; Z82.49 Family history of ischemic heart disease and other diseases of the circulatory system; Z80.7 Family history of other malignant neoplasms of lymphoid, hematopoietic and related tissues; Z80.1 Family history of malignant neoplasm of trachea, bronchus and lung; Z79.51 Long term (current) use of inhaled steroids; Z79.899 Other long term (current) drug therapy; Z79.82 Long term (current) use of aspirin; F41.9 Anxiety disorder, unspecified; F32.9 Major depressive disorder, single episode, unspecified; Z86.79 Personal history of other diseases of the circulatory system; J93.83 Other pneumothorax; D50.9 Iron deficiency anemia, unspecified; R41.3 Other amnesia; I95.9 Hypotension, unspecified; R29.702 NIHSS score 2; D53.9 Nutritional anemia, unspecified
CPT/HCPCS: 96361 ×9; 96376; 96372 ×2; 96374; 36415; 94640 ×6; 95819; 93005; 93306; 97162; 97165; 92610; 92523; 80061; 80053; 80048 ×2; 82550; 82553; 84484; 85025 ×3; 85610; 85730; 81003; 83090; 71046; 70496; 70450; 70498; 99285; G0378 ×3; S4990 ×2; Q9967; S0106 ×3; J1650 ×2; J7512 ×2

== ENCOUNTER 2017-07-16 14:24 | Inpatient (IN) | payer MEDICARE ==
[2017-07-16] MEDS ORDERED: MORPHINE SULFATE 4 MG/ML SYRINGE IVP STA (14:28)
[2017-07-16] MEDS ORDERED: SODIUM CHLORIDE 0.9% 1,000 ML IV STA ×3 (14:28→17:07)
--- NOTE | 2017-07-16 14:36 | ED ---
Back Pain HPI - General Chief Complaint: Back Pain/Injury Stated Complaint: pain all over Time Seen by Provider: 07/16/17 14:24 Source: patient, EMS, RN notes reviewed, old records reviewed Limitations: no limitations - History of Present Illness Initial Comments: This is a 51-year-old male history of COPD and bone cancer (myelodysplastic syndrome) for which he was recently diagnosed with presents with complains of 10 out of 10 pain especially with low back but generally to his entire body that started 5 days ago. He was urged to go the hospital then but refused until today. Patient has had a cough no phlegm he states he hurts also to his anterior abdominal wall especially his low back and into his groin. He denies any herniations denies any focal loss of function is upper or lower extremities. He is a chronic smoker and does smoke heavily still. He denies any dysuria hematuria. MD Complaint: back pain, other - Related Data Home Medications Medication Instructions Recorded Confirmed Fluticasone/Salmeterol [Advair 1 puff INHALATION RT-BID 10/09/16 07/16/17 250-50 Diskus] Tiotropium 18 Mcg/Puff [Spiriva] 1 cap INHALATION RT-DAILY 10/09/16 07/16/17 HYDROcodone/APAP 10-325MG [[place] 1 tab PO QID PRN 01/05/17 07/16/17 10-325] Montelukast [Singulair] 10 mg PO HS 01/05/17 07/16/17 Multivit-Min/FA/Lycopen/Lutein 1 tab PO DAILY 01/27/17 07/16/17 [Centrum Silver Men Tablet] Epoetin Joe [Procrit] 20,000 unit INJ TH 05/22/17 07/16/17 Azithromycin [Zithromax] 250 mg PO MOWEFR 07/16/17 07/16/17 Cholecalciferol [Vitamin D3] 4,000 unit PO DAILY 07/16/17 07/16/17 Ipratropium-Albuterol Nebulize 3 ml INHALATION RT-QID PRN 07/16/17 07/16/17 [Duoneb 0.5 mg-3 mg/3 ml Soln] fentaNYL 12MCG/HR PATCH [Duragesic 1 patch TRANSDERM Q72H 07/16/17 07/16/17 12MCG/HR] predniSONE 20 mg PO DAILY 07/16/17 07/16/17 Previous Rx's Medication Instructions Recorded Aspirin EC [Ecotrin Low Dose] 81 mg PO DAILY #30 tablet. 05/30/17 Atorvastatin [Lipitor] 20 mg PO HS #30 tab 05/30/17 Allergies Allergy/AdvReac Type Severity Reaction Status Date / Time No Known Allergies Allergy Verified 07/16/17 14:54 Review of Systems ROS Statement: Those systems with pertinent positive or pertinent negative responses have been documented in the HPI. ROS Other: All systems not noted in ROS Statement are negative. Past Medical History Past Medical History: Cancer, COPD, Liver Disease, Memory Impairment, Pneumonia , Prostate Disorder Additional Past Medical History / Comment(s): Pt recently admitted to [facility] on with tracheobronchitis. Other hx: MDS pt states diagnosed few months ago follows with Dr. French, macrocytic anemia, weekly epigen injections, chronic hypoxic respiratory failure, home O2 at 2L/NC ATC, abdominal aortic aneurysm, bilateral spontaneous pneumothorax (left once and right twice) with chest tubes and pleurodesis, degenerative arthritis, BPH. History of Any Multi-Drug Resistant Organisms: None Reported Additional Past Surgical History / Comment(s): Bilateral pleurodesis, BMA Past Anesthesia/Blood Transfusion Reactions: No Reported Reaction Additional Past Anesthesia/Blood Transfusion Reaction / Comment(s): pt stated he moved here from [place] a year ago. [place] [facility] in [facility]-no steps. no outside services received. has home /[facility]. no pets. no past service. 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 Past Psychological History: Anxiety, Depression Smoking Status: Current every day smoker Past Alcohol Use History: None Reported Past Drug Use History: None Reported - Past Family History Father History Unknown: Yes Mother Family Medical History: Cancer, Coronary Artery Disease (CAD) Additional Family Medical History / Comment(s): lung cancer, lymphoma. General Exam - General Exam Comments Initial Comments: This a well-developed asthenic appearing male who is awake alert oriented 3 Limitations: no limitations General appearance: alert, anxious, in distress Head exam: Present: atraumatic, normocephalic, normal inspection Eye exam: Present: normal appearance, PERRL, EOMI. Absent: scleral icterus, conjunctival injection, periorbital swelling ENT exam: Present: mucous membranes dry Neck exam: Present: normal inspection. Absent: tenderness, meningismus, lymphadenopathy Respiratory exam: Present: normal lung sounds bilaterally, decreased breath sounds. Absent: respiratory distress, wheezes, rales, rhonchi, stridor Cardiovascular Exam: Present: normal rhythm, tachycardia, normal heart sounds. Absent: systolic murmur, diastolic murmur, rubs, gallop, clicks GI/Abdominal exam: Present: soft, normal bowel sounds. Absent: distended, tenderness, guarding, rebound, rigid Extremities exam: Present: normal inspection, full ROM, normal capillary refill. Absent: tenderness, pedal edema, joint swelling, calf tenderness Back exam: Present: normal inspection Neurological exam: Present: alert, oriented X3, CN II-XII intact Psychiatric exam: Present: normal affect, normal mood Skin exam: Present: warm, dry, intact, normal color. Absent: rash Course Vital Signs 07/16/17 07/16/17 07/16/17 14:26 16:11 16:23 Temperature 97.8 F Pulse Rate 109 H 94 96 Respiratory 20 Rate Blood Pressure 87/50 O2 Sat by Pulse 96 Oximetry - Reevaluation(s) Reevaluation #1: 07/16/17 16:53 Reevaluation patient isstating some improvement with his breathing after the updraft treatment his pain is slightly improved. His nausea has improved after IV Zofran. His blood pressure remains in the mid to upper 80s systolic. Medical Decision Making - Medical Decision Making I did discuss findings with the patient family members were present. The hospitalist service patient will be admitted for IV fluids IV antibiotics and pain control. - Lab Data Result diagrams: 07/16/17 14:43 07/16/17 14:43 Lab Results 07/16/17 07/16/17 07/16/17 Range/Units 14:43 14:43 14:43 WBC 5.8 (3.8-10.6) k/uL RBC 2.60 L (4.30-5.90) m/uL Hgb 8.3 L D (13.0-17.5) gm/dL Hct 26.7 L (39.0-53.0) % MCV 102.9 H (80.0-100.0) fL MCH 31.9 (25.0-35.0) pg MCHC 31.0 (31.0-37.0) g/dL RDW 18.8 H (11.5-15.5) % Plt Count 357 (150-450) k/uL Neutrophils % 82 % Lymphocytes % 12 % Monocytes % 4 % Eosinophils % 1 % Basophils % 0 % Neutrophils # 4.8 (1.3-7.7) k/uL Lymphocytes # 0.7 L (1.0-4.8) k/uL Monocytes # 0.3 (0-1.0) k/uL Eosinophils # 0.0 (0-0.7) k/uL Basophils # 0.0 (0-0.2) k/uL Hypochromasia Moderate Poikilocytosis Slight Anisocytosis Slight Macrocytosis Moderate Sodium 141 (137-145) mmol/L Potassium 3.6 (3.5-5.1) mmol/L Chloride 101 (98-107) mmol/L Carbon Dioxide 31 H (22-30) mmol/L Anion Gap 9 mmol/L BUN 23 H (9-20) mg/dL Creatinine 0.69 (0.66-1.25) mg/dL Est GFR (CKD-EPI)AfAm >90 (>60 ml/min/1.73 sqM) Est GFR (CKD-EPI)NonAf >90 (>60 ml/min/1.73 sqM) Glucose 97 (74-99) mg/dL Plasma Lactic Acid Jeff (0.7-2.0) mmol/L Calcium 9.4 (8.4-10.2) mg/dL Magnesium 1.8 (1.6-2.3) mg/dL Total Bilirubin 0.8 (0.2-1.3) mg/dL AST 20 (17-59) U/L ALT 14 L (21-72) U/L Alkaline Phosphatase 87 (38-126) U/L Total Creatine Kinase 24 L (55-170) U/L CK-MB (CK-2) 0.5 (0.0-2.4) ng/mL CK-MB (CK-2) Rel Index 2.1 Total Protein 7.5 (6.3-8.2) g/dL Albumin 3.6 (3.5-5.0) g/dL Amylase 37 (30-110) U/L Lipase 31 (23-300) U/L 07/16/17 Range/Units 16:11 WBC (3.8-10.6) k/uL RBC (4.30-5.90) m/uL Hgb (13.0-17.5) gm/dL Hct (39.0-53.0) % MCV (80.0-100.0) fL MCH (25.0-35.0) pg MCHC (31.0-37.0) g/dL RDW (11.5-15.5) % Plt Count (150-450) k/uL Neutrophils % % Lymphocytes % % Monocytes % % Eosinophils % % Basophils % % Neutrophils # (1.3-7.7) k/uL Lymphocytes # (1.0-4.8) k/uL Monocytes # (0-1.0) k/uL Eosinophils # (0-0.7) k/uL Basophils # (0-0.2) k/uL Hypochromasia Poikilocytosis Anisocytosis Macrocytosis Sodium (137-145) mmol/L Potassium (3.5-5.1) mmol/L Chloride (98-107) mmol/L Carbon Dioxide (22-30) mmol/L Anion Gap mmol/L BUN (9-20) mg/dL Creatinine (0.66-1.25) mg/dL Est GFR (CKD-EPI)AfAm (>60 ml/min/1.73 sqM) Est GFR (CKD-EPI)NonAf (>60 ml/min/1.73 sqM) Glucose (74-99) mg/dL Plasma Lactic Acid Jeff 0.6 L (0.7-2.0) mmol/L Calcium (8.4-10.2) mg/dL Magnesium (1.6-2.3) mg/dL Total Bilirubin (0.2-1.3) mg/dL AST (17-59) U/L ALT (21-72) U/L Alkaline Phosphatase (38-126) U/L Total Creatine Kinase (55-170) U/L CK-MB (CK-2) (0.0-2.4) ng/mL CK-MB (CK-2) Rel Index Total Protein (6.3-8.2) g/dL Albumin (3.5-5.0) g/dL Amylase (30-110) U/L Lipase (23-300) U/L - Radiology Data Radiology results: report reviewed (I did review the imaging and report is evidence of a right apical right lower lobe infiltrate that is developing.), image reviewed Disposition Clinical Impression: Pneumonia, Hypotensive episode, Dehydration, Intractable pain, Myelodysplastic syndrome, Sciatica, Failure to thrive, Acute exacerbation of chronic obstructive airways disease Disposition: ADMITTED IP TO THIS [facility] Condition: Stable Referrals: Yang Corrigan DO [Primary Care Provider] - 1-2 days
[2017-07-16 14:57] LABS: Anisocytosis Slight; Basophils % (A) 0 %; Eosinophils % (A) 1 %; HCT 26.7 % (39.0-53.0); Hypochromasia Moderate; Lymphocytes # (A) 0.7 k/uL (1.0-4.8); Lymphocytes % (A) 12 %; MCH 31.9 pg (25.0-35.0); MCV 102.9 fL (80.0-100.0); Macrocytosis Moderate; Mean Platelet Volume 7.3; Monocytes # (A) 0.3 k/uL (0-1.0); Monocytes % (A) 4 %; Neutrophils # (A) 4.8 k/uL (1.3-7.7); Neutrophils % (A) 82 %; Platelet Count 357 k/uL (150-450); Poikilocytosis Slight; RDW 18.8 % (11.5-15.5); WBC 5.8 k/uL (3.8-10.6)
[2017-07-16 15:00] LABS: HGB 8.3 gm/dL (13.0-17.5)
[2017-07-16 15:02] LABS: ALT 14 U/L (21-72); AST 20 U/L (17-59); Albumin 3.6 g/dL (3.5-5.0); Alkaline Phosphatase 87 U/L (38-126); Amylase 37 U/L (30-110); Anion Gap 9 mmol/L; Blood Urea Nitrogen 23 mg/dL (9-20); Calcium 9.4 mg/dL (8.4-10.2); Carbon Dioxide 31 mmol/L (22-30); Chloride 101 mmol/L (98-107); Glucose 97 mg/dL (74-99); Lipase 31 U/L (23-300); Magnesium 1.8 mg/dL (1.6-2.3); Potassium 3.6 mmol/L (3.5-5.1); Sodium 141 mmol/L (137-145); Total Bilirubin 0.8 mg/dL (0.2-1.3); Total Protein 7.5 g/dL (6.3-8.2)
[2017-07-16 15:25] LABS: Creatine Kinase MB 0.5 ng/mL (0.0-2.4)
--- NOTE | 2017-07-16 15:38 | XR ---
EXAMINATION TYPE: XR lumbosacral spine min 4V DATE OF EXAM: 07/16/2017 COMPARISON: NONE HISTORY: Pain TECHNIQUE: Five-view lumbar spine FINDINGS: There are 5 lumbar-type vertebral bodies. Pedicles are intact. Facets have mild hypertrophy in the lower lumbar spine. No spondylolytic defects are evident. Mild narrowing of the L5-S1 disc height is present. Remaining disc heights are preserved. Vertebral b vannessa height is preserved. IMPRESSION: 1. Mild degenerative facet changes
[2017-07-16] MEDS ORDERED: ONDANSETRON 4 MG/2 ML VIAL IVP STA (15:46)
[2017-07-16] MEDS ORDERED: IPRATROPIUM-ALBUTEROL 3 ML NEB INHALATION STA (15:46)
--- NOTE | 2017-07-16 15:46 | XR ---
EXAMINATION TYPE: XR chest 2V DATE OF EXAM: 07/16/2017 COMPARISON: 05/29/2017 INDICATION: Generalized body aches history of bone cancer TECHNIQUE: Frontal and lateral views of the chest are obtained. FINDINGS: The heart size is normal. The pulmonary vasculature is normal. There is increased infiltrate in the right upper lung field. Postsurgical clips are within the right upper lung field. Some patchy infiltrate may be in the right lower lobe. Correlate for pneumonia. Oth er etiologies are not excluded at this time. Follow-up to clearing is recommended. IMPRESSION: 1. Developing patchy infiltrate at the right apex and in the right lower lung field. Correlate for pn eumonia. Follow-up to clearing is recommended. Other etiologies are not excluded this time.
[2017-07-16] MEDS ORDERED: fentaNYL (PF) 50 MCG/ML 2 ML AMP IV ONE ×2 (15:47→17:33)
[2017-07-16] MEDS ORDERED: cefTRIAXone IN SWFI 1,000 MG/10 ML SYRINGE IVP STA (16:43)
[2017-07-16] MEDS ORDERED: AZITHROMYCIN 500 MG in SODIUM CHLORIDE 0.9% 250 ML IVPB STA (16:55)
[2017-07-16] MEDS ORDERED: PNEUMONIA PROTOCOL UTILIZED 1 EACH MISC PO PRN (16:55)
[2017-07-16] MEDS: SODIUM CHLORIDE 0.9% 1,000 ML IV SCH (17:22)
[2017-07-16] MEDS: MORPHINE SULFATE 4 MG/ML SYRINGE IVP PRN ×2 (18:37→23:50)
[2017-07-16] MEDS: HYDROcodone/APAP 10-325MG 1 EACH TAB PO PRN (18:45)
[2017-07-16] MEDS: methylPREDNISolone SOD SUCCI 125 MG/2 ML VIAL IV SCH (18:50)
[2017-07-16] MEDS: ATORVASTATIN 20 MG TAB PO SCH (20:44)
[2017-07-16] MEDS: MONTELUKAST 10 MG TAB PO SCH (20:44)
[2017-07-16] MEDS: IPRATROPIUM-ALBUTEROL 3 ML NEB INHALATION SCH (21:36)
[2017-07-16] MEDS ORDERED: DOCUSATE 100 MG CAP PO PRN (22:23)
[2017-07-16] MEDS ORDERED: KETOROLAC 30 MG/ML 1 ML VIAL IVP STA (22:26)
[2017-07-16] MEDS: ONDANSETRON 4 MG/2 ML VIAL IVP PRN (22:36)
[2017-07-16] MEDS: DOCUSATE 100 MG CAP PO SCH (23:17)
[2017-07-17] MEDS: methylPREDNISolone SOD SUCCI 125 MG/2 ML VIAL IV SCH ×4 (00:57→17:11)
[2017-07-17] MEDS: IPRATROPIUM-ALBUTEROL 3 ML NEB INHALATION SCH ×6 (01:24→19:23)
[2017-07-17] MEDS: HYDROcodone/APAP 10-325MG 1 EACH TAB PO PRN ×4 (02:30→23:29)
[2017-07-17] MEDS: SODIUM CHLORIDE 0.9% 1,000 ML IV SCH ×3 (05:23→20:29)
[2017-07-17] MEDS: MORPHINE SULFATE 4 MG/ML SYRINGE IVP PRN ×3 (05:23→13:39)
[2017-07-17] MEDS ORDERED: KETOROLAC 30 MG/ML 1 ML VIAL IVP SCH (06:00)
--- NOTE | 2017-07-17 08:18 | XR ---
EXAMINATION TYPE: XR chest 2V DATE OF EXAM: 07/17/2017 COMPARISON: 07/16/2017 HISTORY: 51-year-old male follow-up pneumonia TECHNIQUE: Frontal and lateral views FINDINGS: Heart normal size. Aorta within normal limits. Distortion in the right upper lobe and apex with surgi salomon material, scarring, cavitation, and patchy airspace opacity relatively unchanged. Diffuse course interstitial densities elsewhere throughout the lungs also relatively unchanged. No significant pleur al effusion seen. IMPRESSION: COPD and fibrosis with chronic cavitation, scarring, and postsurgical changes at the right upper lobe /apex. Some underlying patchy airspace disease in the right upper lobe is relatively similar.
--- NOTE | 2017-07-17 08:35 | XR ---
EXAMINATION TYPE: XR abdomen 1V DATE OF EXAM: 07/17/2017 CLINICAL DATA: 51 year-old male abdominal pain and constipation, PHH COMPARISON: 03/31/2017 FINDINGS: No evidence for free intraperitoneal air. No dilated small bowel or air-fluid levels. Scattered air and stool seen throughout the colon extendi ng distally into the rectum. There is moderate to large stool burden. Nonspecific 3 mm calcification left upper to mid abdomen could represent a calcified granuloma in the spleen, nonobstructive left renal calculus, or vascular calcifications. Mild degenerative changes in the hips. IMPRESSION: 1. No evidence of bowel obstruction or free intraperitoneal air. 2. Moderate to large stool burden suggests constipation.
[2017-07-17] MEDS: ASPIRIN 81 MG PO SCH (09:34)
[2017-07-17] MEDS: AZITHROMYCIN 500 MG TAB PO SCH (09:34)
[2017-07-17] MEDS: cefTRIAXone IN SWFI 1,000 MG/10 ML SYRINGE IVP SCH (09:35)
[2017-07-17] MEDS: DOCUSATE 100 MG CAP PO SCH (09:35)
[2017-07-17] MEDS: PANTOPRAZOLE 40 MG/10 ML VIAL IVP SCH (09:35)
[2017-07-17 11:41] VITALS: BMI 17.7
[2017-07-17] MEDS: DARBEPOETIN ALFA 60 MCG/0.3 ML SYRINGE SQ SCH (13:40)
[2017-07-17] MEDS: CHOLECALCIFEROL 1,000 UNIT TAB PO SCH (13:40)
[2017-07-17] MEDS: MULTIVITAMINS, THERA 1 EACH TAB PO SCH (13:42)
[2017-07-17] MEDS ORDERED: MAGNESIUM CITRATE 296 ML BOTTLE PO ONE (13:46)
[2017-07-17] MEDS ORDERED: BISACODYL 10 MG SUPP RECTAL STA (15:37)
[2017-07-17] MEDS ORDERED: POLYETHYLENE GLYCOL 3350 17 GM POWD.PACK PO STA (15:40)
[2017-07-17] MEDS: KETOROLAC 30 MG/ML 1 ML VIAL IVP PRN (15:49)
[2017-07-17] MEDS: ONDANSETRON 4 MG/2 ML VIAL IVP PRN (15:49)
[2017-07-17] MEDS: MORPHINE ORAL SOLN 10 MG/5 ML CUP PO PRN (19:29)
[2017-07-17] MEDS: MONTELUKAST 10 MG TAB PO SCH (20:29)
[2017-07-17] MEDS: ATORVASTATIN 20 MG TAB PO SCH (20:29)
--- NOTE | 2017-07-17 21:38 | P.HPIM ---
History of Present Illness H&P Date: 07/17/17 Chief Complaint: Right lower rib cage pain Patient is a 51-year-old male with a known history of myelodysplastic syndrome which was diagnosed few months ago and follows with oncology, weekly Epogen injections, COPD on home oxygen and abdominal aortic aneurysm and multiple other medical problems came to the hospital with complaints of right lower back pain and right-sided rib cage pain which has been worsening for the past 5 days. Pain is 10 out of 10. Denied any fever or chills. Patient does have cough without any sputum production. Patient was also having anterior abdominal pain. Denied any injury. Fall. No complaints of chest pain . Patient does have shortness of breath and cough without much sputum production.. Patient has been having constipation and has not had any bowel movement for the past few days. Abdominal x-ray showed no bowel obstruction. Large amount of stool noted in the colon. Suggestive of constipation X-ray of lumbar spine showed mild degenerative changes Chest x-ray showed COPD and fibrosis with chronic cavitation, scarring and postsurgical changes. Some underlying patchy right upper lobe opacities. Review of Systems Constitutional: Patient denies any fever or chills . No generalized weakness or weight loss. Abdomen: Patient denied nausea vomiting and diarrhea . Upper abdominal pain and constipation Cardiovascular: Patient denies any chest pain or short of breath no palpitations. Respiratory: patient denied any cough is from production. No shortness of breath Neurologic: Patient denied any numbness or tingling headache. Musculoskeletal: Patient denies any complaints of joint swelling or deformity. Back pain Skin: Negative Psychiatric: Negative Endocrine: No heat or cold intolerance. No recent weight gain. Genitourinary: No dysuria or hematuria. All other 14 point ROS negative except the above Past Medical History Past Medical History: Cancer, COPD, Liver Disease, Memory Impairment, Pneumonia , Prostate Disorder Additional Past Medical History / Comment(s): admitted to [facility] on 05/22/17 with tracheobronchitis. Other hx: MDS pt states diagnosed few months ago follows with Dr. French, macrocytic anemia, weekly epigen injections, chronic hypoxic respiratory failure, home O2 at 2L/NC ATC, abdominal aortic aneurysm, bilateral spontaneous pneumothorax (left once and right twice) with chest tubes and pleurodesis, degenerative arthritis, BPH. History of Any Multi-Drug Resistant Organisms: None Reported Additional Past Surgical History / Comment(s): Bilateral pleurodesis, BMA Past Anesthesia/Blood Transfusion Reactions: No Reported Reaction Additional Past Anesthesia/Blood Transfusion Reaction / Comment(s): pt stated he moved here from [place] a year ago. lives alone in [facility]-no steps. no outside services received. has home 02 /concentrator. no pets. no past service. 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 Past Psychological History: Anxiety, Depression Additional Psychological History / Comment(s): Pt moved from [place] about a year ago. He lives alone in an apartment with no steps. He has [facility] nurse coming to give him his Epigen injections. He has home O2/concentrator, tank. No pets. No experience. No international travel. No animal exposures. Is not and has no children Smoking Status: Current every day smoker Past Alcohol Use History: None Reported Additional Past Alcohol Use History / Comment(s): Pt started smoking in 1979 Past Drug Use History: None Reported - Past Family History Father History Unknown: Yes Mother Family Medical History: Cancer, Coronary Artery Disease (CAD) Additional Family Medical History / Comment(s): lung cancer, lymphoma. Medications and Allergies Home Medications Medication Instructions Recorded Confirmed Type Fluticasone/Salmeterol [Advair 1 puff INHALATION RT-BID 10/09/16 07/16/17 History 250-50 Diskus] Tiotropium 18 Mcg/Puff [Spiriva] 1 cap INHALATION RT-DAILY 10/09/16 07/16/17 History HYDROcodone/APAP 10-325MG [[place] 1 tab PO QID PRN 01/05/17 07/16/17 History 10-325] Montelukast [Singulair] 10 mg PO HS 01/05/17 07/16/17 History Multivit-Min/FA/Lycopen/Lutein 1 tab PO DAILY 01/27/17 07/16/17 History [Centrum Silver Men Tablet] Epoetin Joe [Procrit] 20,000 unit INJ TH 05/22/17 07/16/17 History Aspirin EC [Ecotrin Low Dose] 81 mg PO DAILY #30 tablet. 05/30/17 07/16/17 Rx Atorvastatin [Lipitor] 20 mg PO HS #30 tab 05/30/17 07/16/17 Rx Azithromycin [Zithromax] 250 mg PO MOWEFR 07/16/17 07/16/17 History Cholecalciferol [Vitamin D3] 4,000 unit PO DAILY 07/16/17 07/16/17 History Ipratropium-Albuterol Nebulize 3 ml INHALATION RT-QID PRN 07/16/17 07/16/17 History [Duoneb 0.5 mg-3 mg/3 ml Soln] fentaNYL 12MCG/HR PATCH [Duragesic 1 patch TRANSDERM Q72H 07/16/17 07/16/17 History 12MCG/HR] predniSONE 20 mg PO DAILY 07/16/17 07/16/17 History Allergies Allergy/AdvReac Type Severity Reaction Status Date / Time No Known Allergies Allergy Verified 07/16/17 14:54 Physical Exam Vitals: Vital Signs Temp Pulse Pulse Resp BP BP Pulse Ox 07/17/17 10:55 80 07/17/17 10:44 76 07/17/17 07:00 97.7 F 82 20 99/60 95 07/17/17 06:28 76 07/17/17 06:19 72 07/16/17 23:00 97.5 F L 92 16 102/65 94 L 07/16/17 21:51 90 07/16/17 21:37 92 97 07/16/17 18:07 97.9 F 101 H 18 105/57 95 07/16/17 17:45 97.7 F 98 16 103/77 96 07/16/17 17:16 106 H 20 97/54 95 07/16/17 16:23 96 07/16/17 16:11 94 07/16/17 14:26 97.8 F 109 H 20 87/50 96 Intake and Output 07/16/17 07/17/17 07/17/17 22:59 06:59 14:59 Intake Total 1180 700 Balance 1180 700 Intake: Intake, IV Titration 700 Amount Sodium Chloride 0.9% 1, 700 000 ml @ 999 mls/hr IV . Q1H1M STA Rx#:[id number] Oral 1180 Other: Voiding Method Toilet Toilet Urinal Urinal # Voids 2 2 Weight 59.421 kg PHYSICAL EXAMINATION: Patient is lying in the bed comfortably, appears to be in mild distress, awake alert and oriented but a poor historian.. HEENT: Normocephalic. Neck is supple. Pupils reactive. Nostrils clear. Oral cavity is moist. Ears reveal no drainage. Neck reveals no JVD, carotid bruits, or thyromegaly. CHEST EXAMINATION: Trachea is central. Symmetrical expansion. Lung levine clear to auscultation and percussion. CARDIAC: Normal S1, S2 with no gallops. No murmurs ABDOMEN: Soft. Nontender. Bowel sounds present. No organomegaly. No abdominal bruits. Extremities: reveal no edema. No clubbing or cyanosis Neurologically awake, alert, oriented x2-3 with well-coordinated movements. No focal deficits noted Skin: No rash or skin lesions. Psychiatric: Cooperative. Nonsuicidal Musculoskeletal: No joint swelling or deformity. Normal range of motion. Results CBC & Chem 7: 07/16/17 14:43 07/16/17 14:43 Labs: Abnormal Lab Results - Last 24 Hours (Table) 07/16/17 07/16/17 07/16/17 Range/Units 14:43 14:43 14:43 RBC 2.60 L (4.30-5.90) m/uL Hgb 8.3 L D (13.0-17.5) gm/dL Hct 26.7 L (39.0-53.0) % MCV 102.9 H (80.0-100.0) fL RDW 18.8 H (11.5-15.5) % Lymphocytes # 0.7 L (1.0-4.8) k/uL Carbon Dioxide 31 H (22-30) mmol/L BUN 23 H (9-20) mg/dL Plasma Lactic Acid Jeff (0.7-2.0) mmol/L ALT 14 L (21-72) U/L Total Creatine Kinase 24 L (55-170) U/L 07/16/17 Range/Units 16:11 RBC (4.30-5.90) m/uL Hgb (13.0-17.5) gm/dL Hct (39.0-53.0) % MCV (80.0-100.0) fL RDW (11.5-15.5) % Lymphocytes # (1.0-4.8) k/uL Carbon Dioxide (22-30) mmol/L BUN (9-20) mg/dL Plasma Lactic Acid Jeff 0.6 L (0.7-2.0) mmol/L ALT (21-72) U/L Total Creatine Kinase (55-170) U/L Thrombosis Risk Factor Assmnt - DVT/VTE Prophylaxis DVT/VTE Prophylaxis: Pharmacologic Prophylaxis ordered - Choose All That Apply Any of the Below Risk Factors Present?: Yes Each Factor Represents 1 point: Abnormal pulmonary function (COPD), Age 41-60 years Other Risk Factors: Yes Each Risk Factor Represents 2 Points: Malignancy Thrombosis Risk Factor Assessment Total Risk Factor Score: 4 Thrombosis Risk Factor Assessment Level: Moderate Risk Assessment and Plan Assessment: Acute COPD exacerbation. Improving clinically Possible right upper lobe infiltrate with pneumonia Acute on chronic back pain Severe constipation COPD on home oxygen. Chronic hypoxic respiratory failure Myelodysplastic syndrome. On weekly epogen injections Macrocytic anemia Memory impairment Abdominal aortic aneurysm History of bilateral spontaneous pneumothorax with the bilateral pleurodesis Anxiety depression Current every day smoker Plan: Patient will be continued on antibiotics breathing treatments and IV steroids. Patient was given mag citrate and Dulcolax suppository for bowel movement. Otherwise patient will be continued on home medications and follow closely. Pain management with [place] and morphine were started. Further recommendations based on the clinical course. Prognosis is guarded. DVT prophylaxis with heparin subcu. Time with Patient: Greater than 30
[2017-07-18] MEDS: methylPREDNISolone SOD SUCCI 125 MG/2 ML VIAL IV SCH ×4 (00:36→17:37)
[2017-07-18] MEDS: IPRATROPIUM-ALBUTEROL 3 ML NEB INHALATION SCH ×6 (00:40→20:04)
[2017-07-18] MEDS: MORPHINE ORAL SOLN 10 MG/5 ML CUP PO PRN ×5 (02:06→21:58)
[2017-07-18] MEDS ORDERED: BISACODYL 10 MG SUPP RECTAL STA (06:22)
[2017-07-18] MEDS: HYDROcodone/APAP 10-325MG 1 EACH TAB PO PRN ×3 (06:27→19:30)
[2017-07-18 07:24] LABS: Anisocytosis Slight; Basophils % (A) 0 %; Eosinophils % (A) 0 %; HCT 24.2 % (39.0-53.0); HGB 7.2 gm/dL (13.0-17.5); Hypochromasia Marked; Lymphocytes # (A) 0.6 k/uL (1.0-4.8); Lymphocytes % (A) 7 %; MCH 31.8 pg (25.0-35.0); MCHC 29.9 g/dL (31.0-37.0); MCV 106.4 fL (80.0-100.0); Macrocytosis Marked; Mean Platelet Volume 7.6; Monocytes # (A) 0.2 k/uL (0-1.0); Monocytes % (A) 2 %; Neutrophils # (A) 7.7 k/uL (1.3-7.7); Neutrophils % (A) 89 %; Platelet Count 331 k/uL (150-450); Poikilocytosis Slight; RBC 2.27 m/uL (4.30-5.90); RDW 19.1 % (11.5-15.5); WBC 8.7 k/uL (3.8-10.6)
[2017-07-18 07:51] LABS: Anion Gap 8 mmol/L; Blood Urea Nitrogen 20 mg/dL (9-20); Calcium 8.6 mg/dL (8.4-10.2); Carbon Dioxide 28 mmol/L (22-30); Chloride 104 mmol/L (98-107); Glucose 103 mg/dL (74-99); Potassium 4.8 mmol/L (3.5-5.1); Sodium 140 mmol/L (137-145)
[2017-07-18] MEDS: DARBEPOETIN ALFA 60 MCG/0.3 ML SYRINGE SQ SCH (08:04)
[2017-07-18] MEDS: AZITHROMYCIN 500 MG TAB PO SCH (08:13)
[2017-07-18] MEDS: ASPIRIN 81 MG PO SCH (08:13)
[2017-07-18] MEDS: DOCUSATE 100 MG CAP PO SCH ×2 (08:14→22:04)
[2017-07-18] MEDS: PANTOPRAZOLE 40 MG/10 ML VIAL IVP SCH (08:14)
[2017-07-18] MEDS: cefTRIAXone IN SWFI 1,000 MG/10 ML SYRINGE IVP SCH (08:17)
[2017-07-18 09:34] LABS: Toxic Granulation Present
[2017-07-18] MEDS: KETOROLAC 30 MG/ML 1 ML VIAL IVP PRN (11:03)
[2017-07-18] MEDS: MULTIVITAMINS, THERA 1 EACH TAB PO SCH (12:30)
[2017-07-18] MEDS: CHOLECALCIFEROL 1,000 UNIT TAB PO SCH (12:30)
[2017-07-18] MEDS: SODIUM CHLORIDE 0.9% 1,000 ML IV SCH (12:32)
--- NOTE | 2017-07-18 18:07 | PN ---
PROGRESS NOTE DATE OF SERVICE: 07/18/2017 This 51-year-old gentleman who was diagnosed to have copd was admitted with possible right upper lobe infiltrate pneumonia as well as COPD exacerbation. The patient is being closely monitored. Patient is also on home oxygen at this time. The patient is on broad-spectrum IV antibiotics. Most recent chest x-ray was reviewed, which showed COPD and fibrosis with chronic cavitation, scarring in the right upper lobe and apex. Past medical history reviewed. REVIEW OF SYSTEMS: CARDIOVASCULAR SYSTEM: No angina, palpitations. RESPIRATORY SYSTEM: As mentioned earlier. GI: As mentioned earlier. : No dysuria or retention. NERVOUS SYSTEM: No numbness, weakness. CURRENT MEDICATIONS: The current medications are reviewed and include: 1. [place] 10 mg q.i.d. p.r.n. 2. DuoNeb q.i.d. and p.r.n. 3. Aspirin 81 mg daily. 4. Lipitor 20 mg daily. 5. Zithromax 500 mg daily. 6. Rocephin 1 gram daily. 7. Vitamin D3 4000 units. 8. Aranesp 60 subcutaneously. 9. Colace 100 mg daily. 10.Toradol 15 mg q.6 p.r.n. 11.Singulair 10 mg at bedtime. 12.Multivitamins. 13.Zofran. 14.Protonix. PHYSICAL EXAMINATION: Patient is alert, oriented x3. Pulse is 84, blood pressure 112/57, respiration 20, temperature 97.3, pulse ox 96% on 2 L. HEENT: Conjunctivae normal. Oral mucosa moist. NECK: No jugular venous distention. No carotid bruit. No lymph node enlargement. CARDIOVASCULAR SYSTEM: S1, S2 muffled. No S3. No S4. RESPIRATORY SYSTEM: Breath sounds diminished at the bases. A few scattered rhonchi and crackles. ABDOMEN: Soft, nontender. No mass palpable. LEGS: No edema. No swelling. NERVOUS SYSTEM: No focal deficit. LABS: WBC 8.7, hemoglobin 7.2. ASSESSMENT: 1. Chronic obstructive pulmonary disease, acute exacerbation, with possible right upper lobe pneumonia with cavitation. 2. Chronic changes and scarring in the chest x-ray bilaterally. 3. Acute on chronic back pain. 4. Severe constipation. 5. Chronic hypoxic respiratory failure. 6. Myelodysplastic syndrome. 7. Gait dysfunction. 8. Microcytic anemia. 9. Memory impairment. 10.Abdominal aortic aneurysm. 11.History of bilateral spontaneous pneumothorax and bilateral pleurodesis history. 12.Anxiety, depression. 13.History of nicotine dependence. RECOMMENDATIONS AND DISCUSSION: I recommend to continue current medication, continue symptomatic treatment. Otherwise, at this time I recommend continuing the bronchodilators, pulmonary consultation and symptomatic treatment of the pain. Fentanyl patch has been recommended. Currently the patient is on Rocephin and IV steroids. We will continue to monitor. Stop the IV fluids. DVT prophylaxis. Follow with Hematology/Oncology. Medication reconciliation was also done. High-dose IV steroids have been recommended at this time. Influenza testing also will be ordered. Lumbar x-rays were done which showed mild degenerative changes. Abdomen x-ray showed no evidence of any acute abnormality. Guarded prognosis because of the multiple complex medical issues. Further recommendations to follow. RICHARD / MAYNOR: [id number] / MTDD
[2017-07-18] MEDS: SYMBICORT 80-4.5 MCG INHALER INHALATION SCH (20:04)
[2017-07-18] MEDS ORDERED: IPRATROPIUM-ALBUTEROL 3 ML NEB INHALATION PRN (20:08)
[2017-07-18] MEDS: ATORVASTATIN 20 MG TAB PO SCH (22:04)
[2017-07-18] MEDS: HEPARIN SODIUM,PORCINE 5,000 UNIT/ML 1 ML VIAL SQ SCH (22:04)
[2017-07-18] MEDS: MONTELUKAST 10 MG TAB PO SCH (22:04)
[2017-07-19] MEDS: methylPREDNISolone SOD SUCCI 125 MG/2 ML VIAL IV SCH ×3 (00:32→12:37)
[2017-07-19] MEDS: HYDROcodone/APAP 10-325MG 1 EACH TAB PO PRN ×3 (01:33→15:42)
[2017-07-19] MEDS: MORPHINE ORAL SOLN 10 MG/5 ML CUP PO PRN ×4 (03:46→19:29)
[2017-07-19] MEDS: KETOROLAC 30 MG/ML 1 ML VIAL IVP PRN ×2 (06:33→12:42)
[2017-07-19] MEDS: IPRATROPIUM-ALBUTEROL 3 ML NEB INHALATION SCH ×4 (07:34→20:23)
[2017-07-19] MEDS: SYMBICORT 80-4.5 MCG INHALER INHALATION SCH ×2 (07:34→20:23)
[2017-07-19 07:56] LABS: Anisocytosis Slight; Basophils % (A) 0 %; Eosinophils % (A) 0 %; Hypochromasia Marked; Lymphocytes # (A) 0.6 k/uL (1.0-4.8); Lymphocytes % (A) 9 %; MCH 31.7 pg (25.0-35.0); MCHC 29.5 g/dL (31.0-37.0); MCV 107.4 fL (80.0-100.0); Macrocytosis Marked; Mean Platelet Volume 7.9; Monocytes # (A) 0.2 k/uL (0-1.0); Monocytes % (A) 3 %; Neutrophils % (A) 87 %; Platelet Count 262 k/uL (150-450); Poikilocytosis Slight; RBC 2.04 m/uL (4.30-5.90); RDW 19.6 % (11.5-15.5); WBC 5.8 k/uL (3.8-10.6)
[2017-07-19 08:10] LABS: HGB 6.5 gm/dL (13.0-17.5)
[2017-07-19 08:24] LABS: Anion Gap 5 mmol/L; Blood Urea Nitrogen 20 mg/dL (9-20); Calcium 8.4 mg/dL (8.4-10.2); Carbon Dioxide 30 mmol/L (22-30); Chloride 102 mmol/L (98-107); Glucose 121 mg/dL (74-99); Potassium 4.6 mmol/L (3.5-5.1); Sodium 137 mmol/L (137-145)
[2017-07-19] MEDS: HEPARIN SODIUM,PORCINE 5,000 UNIT/ML 1 ML VIAL SQ SCH ×2 (09:44→20:48)
[2017-07-19] MEDS: PANTOPRAZOLE 40 MG/10 ML VIAL IVP SCH (09:44)
[2017-07-19] MEDS: ASPIRIN 81 MG PO SCH (09:45)
[2017-07-19] MEDS: AZITHROMYCIN 500 MG TAB PO SCH (09:45)
[2017-07-19] MEDS: cefTRIAXone IN SWFI 1,000 MG/10 ML SYRINGE IVP SCH (09:45)
[2017-07-19] MEDS: DOCUSATE 100 MG CAP PO SCH ×2 (09:45→20:48)
[2017-07-19 10:05] LABS: Toxic Granulation Present
[2017-07-19] MEDS ORDERED: FUROSEMIDE 10 MG/ML 2 ML VIAL IV ONE (10:51)
--- NOTE | 2017-07-19 10:59 | P.CNPUL ---
History of Present Illness Consult date: 07/19/17 Requesting physician: Blake Cherry Reason for consult: COPD Chief complaint: Low-back pain 10 out of 10 History of present illness: This is a very pleasant 51-year-old gentleman who follows with Dr. Corrigan as his primary care physician. He has a known history of aortic aneurysm, previous bilateral pneumothoraces at a young age requiring chest tube insertions and pleurodesis, benign prostatic hypertrophy, degenerative arthritis , macrocytic anemia receiving weekly Epogen, he was also diagnosed with myelodysplastic syndrome, bone marrow biopsy done January 2017. He follows with Dr. French. He also has a significant 40 year pack per day smoking history and oxygen dependent (2 L/m per nasal cannula) chronic obstructive pulmonary disease. He follows with Dr. Latham in our office for the same. He is maintained on Advair, Spiriva, Singulair and albuterol. He presented here on 07/16/2017 to the emergency room with significant low back pain that he rated a 10 out of 10. His been going on for several days and most of his joints and bones have been hurting him. He is being treated with [place], morphine, fentanyl. He is also having complaints of constipation. His chest x- ray reveals evidence of COPD and fibrosis with chronic cavitation, scarring and postsurgical changes in the right upper lobe/apex. There is some underlying patchy airspace disease in the right upper lobe which is similar. Most of his changes are chronic in nature. We are consulted for his COPD exacerbation. He is seen today in consultation on the oncology unit. He is awake and alert in no acute distress. His main complaints continue to be that of joint and low back pain. He is also having concerns with his constipation. He denies any worsening shortness of breath at this time. He does have a loose nonproductive cough. He has been afebrile. No tachycardia. No tachypnea. Maintaining O2 saturations in the mid to upper 90s on 2 L/m per nasal cannula. Blood culture reveals no growth to date. Influenza screen is negative. No leukocytosis. Current white count 5.8. Hemoglobin 6.5. Platelet count 262,000. He is currently on DuoNeb inhalations 4 times a day and when necessary, Symbicort, IV Solu-Medrol. He was also initiated on ceftriaxone and azithromycin. Review of Systems Constitutional: Reports chronic pain, Reports poor appetite, Reports weakness, Reports weight loss Eyes: denies blurred vision, denies decreased vision Ears: bilateral: decreased hearing Ears, nose, mouth and throat: Denies headache, Denies sore throat Respiratory: Reports cough, Reports home oxygen, Reports wheezing Gastrointestinal: Reports change in bowel habits, Reports constipation, Reports loss of appetite Genitourinary: Reports as per HPI Musculoskeletal: Reports low back pain, Reports muscle weakness, Reports myalgias Musculoskeletal: bilateral: knee pain, shoulder pain Integumentary: Denies pruritus, Denies rash Neurological: Denies numbness, Denies weakness Psychiatric: Reports anxiety, Reports depression Endocrine: Denies fatigue, Denies weight change Hematologic/Lymphatic: Reports as per HPI Past Medical History Past Medical History: Cancer, COPD, Liver Disease, Memory Impairment, Pneumonia , Prostate Disorder Additional Past Medical History / Comment(s): admitted to [facility] on 05/22/17 with tracheobronchitis. Other hx: Myelodysplastic syndrome pt states diagnosed January [address] French, macrocytic anemia, weekly epogen injections, chronic hypoxic respiratory failure, home O2 at 2L/NC ATC, abdominal aortic aneurysm, bilateral spontaneous pneumothorax (left once and right twice) with chest tubes and pleurodesis, degenerative arthritis, BPH. History of Any Multi-Drug Resistant Organisms: None Reported Additional Past Surgical History / Comment(s): Bilateral pleurodesis, BMA Past Anesthesia/Blood Transfusion Reactions: No Reported Reaction Additional Past Anesthesia/Blood Transfusion Reaction / Comment(s): pt stated he moved here from [place] a year ago. lives alone in apt-no steps. no outside services received. has home 02 /concentrator. no pets. no past service. 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 Past Psychological History: Anxiety, Depression Additional Psychological History / Comment(s): Pt moved from [place] about a year ago. He lives alone in an apartment with no steps. He has [facility] nurse coming to give him his Epigen injections. He has home O2/concentrator, tank. No pets. No experience. No international travel. No animal exposures. Is not and has no children Smoking Status: Current every day smoker Past Alcohol Use History: None Reported Additional Past Alcohol Use History / Comment(s): Pt started smoking in 1979 Past Drug Use History: None Reported - Past Family History Father History Unknown: Yes Mother Family Medical History: Cancer, Coronary Artery Disease (CAD) Additional Family Medical History / Comment(s): lung cancer, lymphoma. Medications and Allergies Home Medications Medication Instructions Recorded Confirmed Type Fluticasone/Salmeterol [Advair 1 puff INHALATION RT-BID 10/09/16 07/16/17 History 250-50 Diskus] Tiotropium 18 Mcg/Puff [Spiriva] 1 cap INHALATION RT-DAILY 10/09/16 07/16/17 History HYDROcodone/APAP 10-325MG [[place] 1 tab PO QID PRN 01/05/17 07/16/17 History 10-325] Montelukast [Singulair] 10 mg PO HS 01/05/17 07/16/17 History Multivit-Min/FA/Lycopen/Lutein 1 tab PO DAILY 01/27/17 07/16/17 History [Centrum Silver Men Tablet] Epoetin Joe [Procrit] 20,000 unit INJ TH 05/22/17 07/16/17 History Aspirin EC [Ecotrin Low Dose] 81 mg PO DAILY #30 tablet. 05/30/17 07/16/17 Rx Atorvastatin [Lipitor] 20 mg PO HS #30 tab 05/30/17 07/16/17 Rx Azithromycin [Zithromax] 250 mg PO MOWEFR 07/16/17 07/16/17 History Cholecalciferol [Vitamin D3] 4,000 unit PO DAILY 07/16/17 07/16/17 History Ipratropium-Albuterol Nebulize 3 ml INHALATION RT-QID PRN 07/16/17 07/16/17 History [Duoneb 0.5 mg-3 mg/3 ml Soln] fentaNYL 12MCG/HR PATCH [Duragesic 1 patch TRANSDERM Q72H 07/16/17 07/16/17 History 12MCG/HR] predniSONE 20 mg PO DAILY 07/16/17 07/16/17 History Allergies Allergy/AdvReac Type Severity Reaction Status Date / Time No Known Allergies Allergy Verified 07/16/17 14:54 Physical Exam Vitals: Vital Signs Temp Pulse Pulse Resp BP Pulse Ox 07/19/17 07:45 92 07/19/17 07:36 92 07/19/17 07:00 98.0 F 88 16 99/62 96 07/18/17 20:48 97.6 F 90 20 118/62 95 07/18/17 20:15 88 07/18/17 20:05 88 07/18/17 17:02 84 07/18/17 16:45 84 07/18/17 16:00 97 07/18/17 14:06 78 07/18/17 13:59 80 Intake and Output 07/18/17 07/19/17 07/19/17 22:59 06:59 14:59 Other: Voiding Method Toilet Toilet Urinal Urinal # Voids 2 2 GENERAL EXAM: Frail, cachectic. Alert, anxious, uncomfortable. HEAD: Normocephalic. EYES: Normal reaction of pupils, equal size. NOSE: Clear with pink turbinates. THROAT: No erythema or exudates. NECK: No masses, no JVD. CHEST: No chest wall deformity. LUNGS: Equal air entry with faint end expiratory wheeze. Few scattered rhonchi. Diminished.. CVS: S1 and S2 normal with no audible murmur, regular rhythm. ABDOMEN: No hepatosplenomegaly, normal bowel sounds, no guarding or rigidity. SPINE: Kyphoscoliosis. Acute on chronic low back pain. SKIN: No rashes CENTRAL NERVOUS SYSTEM: No focal deficits, tone is normal in all 4 extremities. EXTREMITIES: There is no peripheral edema. No clubbing, no cyanosis. Peripheral pulses are intact. Results - Laboratory Findings CBC and BMP: 07/19/17 07:11 07/19/17 07:11 Abnormal lab findings: Abnormal Labs 07/16/17 07/16/17 07/16/17 14:43 14:43 14:43 RBC 2.60 L Hgb 8.3 L D Hct 26.7 L MCV 102.9 H MCHC RDW 18.8 H Lymphocytes # 0.7 L Carbon Dioxide 31 H BUN 23 H Creatinine Glucose Plasma Lactic Acid Jeff ALT 14 L Total Creatine Kinase 24 L 07/16/17 07/18/17 07/18/17 16:11 06:36 06:36 RBC 2.27 L Hgb 7.2 L Hct 24.2 L MCV 106.4 H MCHC 29.9 L RDW 19.1 H Lymphocytes # 0.6 L Carbon Dioxide BUN Creatinine Glucose 103 H Plasma Lactic Acid Jeff 0.6 L ALT Total Creatine Kinase 07/19/17 07/19/17 07:11 07:11 RBC 2.04 L Hgb 6.5 L* Hct 22.0 L MCV 107.4 H MCHC 29.5 L RDW 19.6 H Lymphocytes # 0.6 L Carbon Dioxide BUN Creatinine 0.64 L Glucose 121 H Plasma Lactic Acid Jeff ALT Total Creatine Kinase - Diagnostic Findings Chest x-ray: image reviewed Assessment and Plan Assessment: Impression: #1 Acute on chronic low back. #2 Acute on chronic macrocytic anemia secondary to myelodysplastic syndrome. Current hemoglobin 6.5. #3 Constipation secondary to narcotics. #4 Acute exacerbation of severe oxygen dependent chronic obstructive pulmonary disease. #5 Chronic and ongoing tobacco dependence for approximately 35 years at 1 pack per day. #6 Previous history of spontaneous bilateral pneumothorax requiring chest tube placements and pleurodesis. #7 History of benign prostatic hypertrophy. #8 Chronic degenerative arthritis. #9 History of anxiety/depression. #10 History of abdominal aortic aneurysm. Plan: The patient was seen and evaluated by Dr. Latham. His chest x-ray and labs were reviewed. Most of his x-ray findings are chronic in nature. No clinical evidence of pneumonia. We will treat him for his COPD exacerbation. Continue DuoNeb inhalations, IV Solu-Medrol, Symbicort, Singulair. Continue empiric antibiotics. The patient is again educated regarding the importance of complete smoking cessation. Oncology is on the case as well. Pain control and constipation are his main concerns today. I, the cosigning physician, performed a history & physical examination of the patient. Lungs sounds bilateral end expiratory wheeze, few scattered rhonchi. Maintaining good O2 saturations in the 90s on 2 L/m per nasal cannula. I discussed the assessment and plan of care with my nurse practitioner, Fadia Mc. I attest to the above note as dictated by her. Time with Patient: Greater than 30
[2017-07-19] MEDS: SODIUM FERRIC GLUCONAT-SUCROSE 125 MG in SODIUM CHLORIDE 0.9% 100 ML IVPB SCH (12:36)
[2017-07-19] MEDS: CHOLECALCIFEROL 1,000 UNIT TAB PO SCH (12:37)
[2017-07-19] MEDS: MULTIVITAMINS, THERA 1 EACH TAB PO SCH (12:37)
[2017-07-19] MEDS ORDERED: LACTULOSE 20 GM/30 ML CUP PO SCH (13:00)
[2017-07-19] MEDS: LACTULOSE 20 GM/30 ML CUP PO SCH ×2 (16:55→20:46)
--- NOTE | 2017-07-19 17:29 | PN ---
PROGRESS NOTE DATE OF SERVICE: 07/19/2017 This is a 51-year-old gentleman who was admitted with COPD acute exacerbation as well as right upper lobe pneumonia with cavitation was admitted with multiple medical issues, increased shortness of breath. Currently the patient is on broad- spectrum IV antibiotics and steroids. He is also complaining of back pain and severe constipation also. The patient also seen by Dr. Latham also in consultation as well. The chest x- ray showed bilateral lesions and right upper lobe cavitary lesions as well. Influenza was negative. The hemoglobin is 6.5 at this time. PAST MEDICAL HISTORY: Reviewed. REVIEW OF SYSTEMS: CARDIOVASCULAR: No angina. RESPIRATORY: As mentioned earlier. GI: As mentioned earlier. : No dysuria. NERVOUS SYSTEM: No numbness or weakness. MEDICATIONS: Current medications are reviewed and include: 1. Sciota 10 mg q.i.d. p.r.n. 2. DuoNeb q.i.d. and p.r.n. 3. Aspirin 81 mg daily. 4. Lipitor 20 mg q.h.s. 5. Zithromax 500 mg p.o. daily. 6. Symbicort 80/4.5 two puffs b.i.d. 7. Rocephin 1 gram daily. 8. Vitamin D3, 4000 daily. 9. Aranesp 60 mcg subcu . 10.Colace 100 mg p.o. b.i.d. 11.Duragesic patch 12 mcg q.72 hours. 12.Iron sulfate. 13.Heparin. 14.Toradol. 15.Cephulac 30 mg q.8. 16.Solu-Medrol 60 IV q.6. 17.Singulair. 18.Morphine sulfate. 19.Multivitamins. 20.Zofran. 21.Protonix. PHYSICAL EXAM: Patient is alert, oriented x3. Pulse is 77, blood pressure 107/61, respiration 18, temperature 97.4, pulse ox 100% on room air. HEENT: Conjunctivae normal. Oral mucosa moist. Neck is no jugular venous distention. CARDIOVASCULAR: S1 and S2 muffled. RESPIRATORY: Breath sounds diminished at the bases. Bilateral scattered rhonchi and coarse crackles. ABDOMEN: Soft. Mild diffuse discomfort. No guarding or rigidity. No mass palpable. LEGS: No edema, no swelling. NERVOUS SYSTEM: Higher functions as mentioned earlier. Moves all 4 limbs. No focal motor deficits. LYMPHATICS: No lymphadenopathy of the neck, axillae or groin. SKIN: No ulcer, rash or bleeding. LABS: Labs are WBC 5.8, hemoglobin 6.5. ASSESSMENT: 1. Chronic obstructive pulmonary disease acute exacerbation with possible right upper lobe pneumonia with cavitation. 2. Chronic changes and scarring on the chest x-ray bilaterally. 3. Anemia possibly due to MDS. 4. Acute on chronic back pain. 5. Severe constipation. 6. Chronic hypoxic respiratory failure. 7. Myelodysplastic syndrome history. 8. Gait dysfunction. 9. Microcytic anemia. 10.Memory impairment. 11.Abdominal aortic aneurysm history. 12.History of bilateral spontaneous pneumothorax and bilateral pleurodesis history. 13.Anxiety, depression. 14.History of nicotine dependence. RECOMMENDATIONS AND DISCUSSION: Recommend to continue current medications, continue symptomatic treatment. At this time I recommend to continue the bronchodilators, steroids. I would recommend 1 unit transfusion with Lasix. Otherwise, lactulose for constipation and steroids may be tapered at this point for to observe the response. Otherwise, closely follow. Dr. Latham's input appreciated and guarded prognosis. Further recommendations to follow. MMODL / IJN: [id number] / [facility]
[2017-07-19 18:40] LABS: Reticulocyte % 5.3 % (0.5-2.0)
--- NOTE | 2017-07-19 20:21 | P.CONS ---
History of Present Illness - Reason for Consult Consult date: 07/19/17 MDS Requesting physician: Dick Nieves - Chief Complaint Pneumonia, COPD exacerbation - History of Present Illness Mr. Burrows is a very pleasant 51 yo male with MDS here for shortness of breath and cough due to possible pneumonia and COPD exacerbation. He follows with Dr. French for his MDS. He has a history of chronic anemia, macrocytic for many years that failed oral iron supplementation. He moved from out of [facility] here in 2016 at which time he was hospitalized here in January 2017 for shortness of breath, found to be anemic with a hemoglobin of 7.6. Workup at that time was negative. 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 He has been on weekly Procrit, 20,000 units subcu since then with hemoglobin stable in the nines. Last seen in clinic on 07/09/17 at which time his hemoglobin was 8.2 with evidence of iron deficiency. Ferriheme infusion was recommended weekly for 2 doses. Unclear if he received this. Plan was to continue with Procrit and consider increasing dose if hemoglobin does not improve after iron supplementation. Comes in this admission with shortness of breath and mostly dry cough. Chest X ray with COPD and fibrosis and patchy right upper lobe opacities. Found to have a hemoglobin of 6.5. He is currently being treated for COPD exacerbation and pneumonia. Review of Systems All systems: negative Constitutional: Reports as per HPI Past Medical History Past Medical History: Cancer, COPD, Liver Disease, Memory Impairment, Pneumonia , Prostate Disorder Additional Past Medical History / Comment(s): admitted to [facility] on 05/22/17 with tracheobronchitis. Other hx: Myelodysplastic syndrome pt states diagnosed January [address] French, macrocytic anemia, weekly epogen injections, chronic hypoxic respiratory failure, home O2 at 2L/NC ATC, abdominal aortic aneurysm, bilateral spontaneous pneumothorax (left once and right twice) with chest tubes and pleurodesis, degenerative arthritis, BPH. History of Any Multi-Drug Resistant Organisms: None Reported Additional Past Surgical History / Comment(s): Bilateral pleurodesis, BMA Past Anesthesia/Blood Transfusion Reactions: No Reported Reaction Additional Past Anesthesia/Blood Transfusion Reaction / Comm: pt stated he moved here from [place] a year ago. lives alone in [facility]-no steps. no outside services received. has home 02 /concentrator. no pets. no past service. 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 Past Psychological History: Anxiety, Depression Additional Psychological History / Comment(s): Pt moved from [place] about a year ago. He lives alone in an apartment with no steps. He has [facility] nurse coming to give him his Epigen injections. He has home O2/concentrator, tank. No pets. No experience. No international travel. No animal exposures. Is not and has no children Smoking Status: Current every day smoker Past Alcohol Use History: None Reported Additional Past Alcohol Use History / Comment(s): Pt started smoking in 1979 Past Drug Use History: None Reported - Past Family History Father History Unknown: Yes Mother Family Medical History: Cancer, Coronary Artery Disease (CAD) Additional Family Medical History / Comment(s): lung cancer, lymphoma. Medications and Allergies Home Medications Medication Instructions Recorded Confirmed Type Fluticasone/Salmeterol [Advair 1 puff INHALATION RT-BID 10/09/16 07/16/17 History 250-50 Diskus] Tiotropium 18 Mcg/Puff [Spiriva] 1 cap INHALATION RT-DAILY 10/09/16 07/16/17 History HYDROcodone/APAP 10-325MG [Morrison 1 tab PO QID PRN 01/05/17 07/16/17 History 10-325] Montelukast [Singulair] 10 mg PO HS 01/05/17 07/16/17 History Multivit-Min/FA/Lycopen/Lutein 1 tab PO DAILY 01/27/17 07/16/17 History [Centrum Silver Men Tablet] Epoetin Joe [Procrit] 20,000 unit INJ TH 05/22/17 07/16/17 History Aspirin EC [Ecotrin Low Dose] 81 mg PO DAILY #30 tablet. 05/30/17 07/16/17 Rx Atorvastatin [Lipitor] 20 mg PO HS #30 tab 05/30/17 07/16/17 Rx Azithromycin [Zithromax] 250 mg PO MOWEFR 07/16/17 07/16/17 History Cholecalciferol [Vitamin D3] 4,000 unit PO DAILY 07/16/17 07/16/17 History Ipratropium-Albuterol Nebulize 3 ml INHALATION RT-QID PRN 07/16/17 07/16/17 History [Duoneb 0.5 mg-3 mg/3 ml Soln] fentaNYL 12MCG/HR PATCH [Duragesic 1 patch TRANSDERM Q72H 07/16/17 07/16/17 History 12MCG/HR] predniSONE 20 mg PO DAILY 07/16/17 07/16/17 History Allergies Allergy/AdvReac Type Severity Reaction Status Date / Time No Known Allergies Allergy Verified 07/16/17 14:54 Physical Exam Vitals: Vital Signs Temp Pulse Pulse Resp BP BP Pulse Ox 07/19/17 16:54 97.8 F 88 18 108/63 99 07/19/17 16:50 90 07/19/17 16:40 90 07/19/17 15:25 97.5 F L 77 18 107/61 100 07/19/17 14:55 97.0 F L 83 18 102/60 98 07/19/17 14:45 97.0 F L 79 18 107/64 97 07/19/17 11:46 88 07/19/17 11:36 88 07/19/17 07:45 92 07/19/17 07:36 92 07/19/17 07:00 98.0 F 88 16 99/62 96 07/18/17 20:48 97.6 F 90 20 118/62 95 07/18/17 20:15 88 07/18/17 20:05 88 Intake and Output 07/19/17 07/19/17 07/19/17 06:59 14:59 22:59 Intake Total 0 250 Balance 0 250 Intake: Blood Product 0 250 Rc Cpda-1 Unit 0 250 [id number] Other: Voiding Method Toilet Toilet Toilet Urinal Urinal Urinal # Voids 2 Gen.: No acute distress HEENT: EOMI. Conjunctival pallor. Mucosa moist. Neck supple. Lymph: No cervical lymphadenopathy. Lungs: Clear to auscultation bilaterally. Heart: Regular rate and rhythm. Abdomen: Soft, nontender, nondistended, with positive bowel sounds. MSK: 4/4 strength in all 4 extremities. Neuro: Alert and oriented 3. Psych: Appropriate affect. Skin: No jaundice. Results CBC & Chem 7: 07/19/17 07:11 07/19/17 07:11 Labs: Abnormal Lab Results - Last 24 Hours (Table) 07/19/17 07/19/17 07/19/17 Range/Units 07:10 07:11 07:11 RBC 2.04 L (4.30-5.90) m/uL Hgb 6.5 L* (13.0-17.5) gm/dL Hct 22.0 L (39.0-53.0) % MCV 107.4 H (80.0-100.0) fL MCHC 29.5 L (31.0-37.0) g/dL RDW 19.6 H (11.5-15.5) % Lymphocytes # 0.6 L (1.0-4.8) k/uL Creatinine 0.64 L (0.66-1.25) mg/dL Glucose 121 H (74-99) mg/dL Crossmatch See Detail Microbiology - Last 24 Hours (Table) 07/16/17 16:11 Blood Culture - Preliminary Blood No Growth after 48 hours Chest x-ray: report reviewed Abdominal x-ray: report reviewed Assessment and Plan Assessment: #1 macrocytic anemia #2 MDS #3 COPD exacerbation #4 pneumonia Plan: Mr. 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 Recently his hemoglobin was 8's in clinic from a couple weeks ago with the plan of IV Feraheme and continued Procrit weekly that he has been getting at 20 K units subcu. If his hemoglobin did not respond to the plan was to increase his Procrit to 40K units. Unclear if he had their Feraheme infusion. Also being treated for COPD exacerbation and pneumonia. His acute drop in hemoglobin from 8's couple weeks ago down to 6.5 could very well be contributing to his shortness of breath. This could be due to his underlying MDS and iron deficiency although would have to also rule out bleeding for such an acute drop in hemoglobin. Would recommend checking iron panel, B12, folate, reticulocyte, haptoglobin, and LDH. For now will hold with weekly Procrit at 20,000 units subcu due to severe pain. Consider resuming once work up results available. He does not recall receiving FeraHeme and has been on IV iron supplementation while inpatient. Agree with this for now. If other deficiencies are found we will supplement as needed. We will continue to follow patient with you. This was discussed with the patient and he was agreeable to the plan. All of his questions were answered.
[2017-07-19] MEDS: ATORVASTATIN 20 MG TAB PO SCH (20:48)
[2017-07-19] MEDS: MONTELUKAST 10 MG TAB PO SCH (20:48)
[2017-07-20] MEDS: methylPREDNISolone SOD SUCCI 40 MG/ML 1 ML VIAL IV SCH ×3 (00:50→17:06)
[2017-07-20] MEDS: HYDROcodone/APAP 10-325MG 1 EACH TAB PO PRN ×4 (00:52→19:03)
[2017-07-20] MEDS: LACTULOSE 20 GM/30 ML CUP PO SCH ×3 (00:54→11:17)
[2017-07-20] MEDS: MORPHINE ORAL SOLN 10 MG/5 ML CUP PO PRN ×4 (02:36→20:20)
[2017-07-20] MEDS: KETOROLAC 30 MG/ML 1 ML VIAL IVP PRN (05:36)
[2017-07-20] MEDS: SYMBICORT 80-4.5 MCG INHALER INHALATION SCH ×2 (07:21→19:06)
[2017-07-20] MEDS: IPRATROPIUM-ALBUTEROL 3 ML NEB INHALATION SCH ×4 (07:21→19:08)
[2017-07-20 07:35] LABS: Anion Gap 7 mmol/L; Blood Urea Nitrogen 27 mg/dL (9-20); Calcium 8.8 mg/dL (8.4-10.2); Carbon Dioxide 31 mmol/L (22-30); Chloride 101 mmol/L (98-107); Glucose 91 mg/dL (74-99); Potassium 4.3 mmol/L (3.5-5.1); Sodium 139 mmol/L (137-145)
[2017-07-20 07:36] LABS: Anisocytosis Moderate; Basophils % (A) 0 %; Eosinophils % (A) 0 %; HCT 26.9 % (39.0-53.0); Hypochromasia Marked; Lymphocytes # (A) 0.8 k/uL (1.0-4.8); Lymphocytes % (A) 12 %; MCH 31.7 pg (25.0-35.0); MCHC 30.9 g/dL (31.0-37.0); MCV 102.7 fL (80.0-100.0); Macrocytosis Moderate; Mean Platelet Volume 7.7; Monocytes # (A) 0.3 k/uL (0-1.0); Monocytes % (A) 5 %; Neutrophils # (A) 5.5 k/uL (1.3-7.7); Neutrophils % (A) 82 %; Platelet Count 287 k/uL (150-450); Poikilocytosis Moderate; RBC 2.62 m/uL (4.30-5.90); RDW 20.2 % (11.5-15.5); WBC 6.8 k/uL (3.8-10.6)
[2017-07-20 07:37] LABS: HGB 8.3 gm/dL (13.0-17.5)
[2017-07-20] MEDS: PANTOPRAZOLE 40 MG TABLET PO SCH (08:05)
[2017-07-20] MEDS: HEPARIN SODIUM,PORCINE 5,000 UNIT/ML 1 ML VIAL SQ SCH ×2 (08:05→20:21)
[2017-07-20] MEDS: AZITHROMYCIN 500 MG TAB PO SCH (08:05)
[2017-07-20] MEDS: ASPIRIN 81 MG PO SCH (08:05)
[2017-07-20] MEDS: DOCUSATE 100 MG CAP PO SCH ×2 (08:06→20:21)
[2017-07-20] MEDS: SODIUM FERRIC GLUCONAT-SUCROSE 125 MG in SODIUM CHLORIDE 0.9% 100 ML IVPB SCH (10:58)
[2017-07-20] MEDS: cefTRIAXone IN SWFI 1,000 MG/10 ML SYRINGE IVP SCH (10:58)
[2017-07-20] MEDS: MULTIVITAMINS, THERA 1 EACH TAB PO SCH (12:07)
[2017-07-20] MEDS: CHOLECALCIFEROL 1,000 UNIT TAB PO SCH (12:07)
--- NOTE | 2017-07-20 16:27 | P.PN ---
Subjective Progress Note Date: 07/20/17 Principal diagnosis: Acute on chronic back pain. This is a very pleasant 51-year-old gentleman who follows with Dr. Corrigan as his primary care physician. He has a known history of aortic aneurysm, previous bilateral pneumothoraces at a young age requiring chest tube insertions and pleurodesis, benign prostatic hypertrophy, degenerative arthritis , macrocytic anemia receiving weekly Epogen, he was also diagnosed with myelodysplastic syndrome, bone marrow biopsy done January 2017. He follows with Dr. French. He also has a significant 40 year pack per day smoking history and oxygen dependent (2 L/m per nasal cannula) chronic obstructive pulmonary disease. He follows with Dr. Latham in our office for the same. He is maintained on Advair, Spiriva, Singulair and albuterol. He presented here on 07/16/2017 to the emergency room with significant low back pain that he rated a 10 out of 10. His been going on for several days and most of his joints and bones have been hurting him. He is being treated with Browning, morphine, fentanyl. He is also having complaints of constipation. His chest x- ray reveals evidence of COPD and fibrosis with chronic cavitation, scarring and postsurgical changes in the right upper lobe/apex. There is some underlying patchy airspace disease in the right upper lobe which is similar. Most of his changes are chronic in nature. We are consulted for his COPD exacerbation. He is seen today in consultation on the oncology unit. He is awake and alert in no acute distress. His main complaints continue to be that of joint and low back pain. He is also having concerns with his constipation. He denies any worsening shortness of breath at this time. He does have a loose nonproductive cough. He has been afebrile. No tachycardia. No tachypnea. Maintaining O2 saturations in the mid to upper 90s on 2 L/m per nasal cannula. Blood culture reveals no growth to date. Influenza screen is negative. No leukocytosis. Current white count 5.8. Hemoglobin 6.5. Platelet count 262,000. He is currently on DuoNeb inhalations 4 times a day and when necessary, Symbicort, IV Solu-Medrol. He was also initiated on ceftriaxone and azithromycin. Patient was reevaluated today on 07/20/2017, seems to be doing better, pain is better controlled, pulmonary-frank he is asymptomatic no cough no wheezing no shortness of breath, he is basically about his baseline. CBC is relatively normal hemoglobin is 8.3. Patient received a unit of packed RBCs for a lower hemoglobin Objective - Vital Signs Vital signs: Vital Signs Temp 97.4 F L 07/20/17 07:00 Pulse 94 07/20/17 15:27 Resp 16 07/20/17 07:00 BP 96/59 07/20/17 07:00 Pulse Ox 92 L 07/20/17 07:23 Intake & Output 07/19/17 07/20/17 07/20/17 18:59 06:59 18:59 Intake Total 250 Balance 250 Intake: Blood Product 250 Rc Cpda-1 Unit 250 [id number] Other: Voiding Method Toilet Toilet Toilet Urinal Urinal Urinal # Voids 3 2 - Exam GENERAL EXAM: Revealed a 51-year-old white male in no form of distress. HEAD: Normocephalic. EYES: Normal reaction of pupils, equal size. NOSE: Clear with pink turbinates. THROAT: No erythema or exudates. NECK: No masses, no JVD. CHEST: No chest wall deformity. LUNGS: Equal air entry with faint end expiratory wheeze. Few scattered rhonchi. Diminished.. CVS: S1 and S2 normal with no audible murmur, regular rhythm. ABDOMEN: No hepatosplenomegaly, normal bowel sounds, no guarding or rigidity. SPINE: Kyphoscoliosis. Acute on chronic low back pain. SKIN: No rashes CENTRAL NERVOUS SYSTEM: No focal deficits, tone is normal in all 4 extremities. EXTREMITIES: There is no peripheral edema. No clubbing, no cyanosis. Peripheral pulses are intact. - Labs CBC & Chem 7: 07/20/17 06:50 07/20/17 06:50 Labs: Abnormal Lab Results - Last 24 Hours (Table) 07/19/17 07/19/17 07/20/17 Range/Units 07:10 07:11 06:50 RBC 2.62 L (4.30-5.90) m/uL Hgb 8.3 L D (13.0-17.5) gm/dL Hct 26.9 L (39.0-53.0) % MCV 102.7 H (80.0-100.0) fL MCHC 30.9 L (31.0-37.0) g/dL RDW 20.2 H (11.5-15.5) % Lymphocytes # 0.8 L (1.0-4.8) k/uL Retic Count 5.3 H (0.5-2.0) % Carbon Dioxide (22-30) mmol/L BUN (9-20) mg/dL Crossmatch See Detail 07/20/17 Range/Units 06:50 RBC (4.30-5.90) m/uL Hgb (13.0-17.5) gm/dL Hct (39.0-53.0) % MCV (80.0-100.0) fL MCHC (31.0-37.0) g/dL RDW (11.5-15.5) % Lymphocytes # (1.0-4.8) k/uL Retic Count (0.5-2.0) % Carbon Dioxide 31 H (22-30) mmol/L BUN 27 H (9-20) mg/dL Crossmatch Microbiology - Last 24 Hours (Table) 07/16/17 16:11 Blood Culture - Preliminary Blood No Growth after 72 hours Assessment and Plan Assessment: #1 Acute on chronic low back. #2 Acute on chronic macrocytic anemia secondary to myelodysplastic syndrome. Current hemoglobin 6.5. Received 1 unit of packed RBCs for low hemoglobin and presently his hemoglobin is 8.3. #3 Constipation secondary to narcotics. #4 Acute exacerbation of severe oxygen dependent chronic obstructive pulmonary disease. #5 Chronic and ongoing tobacco dependence for approximately 35 years at 1 pack per day. #6 Previous history of spontaneous bilateral pneumothorax requiring chest tube placements and pleurodesis. #7 History of benign prostatic hypertrophy. #8 Chronic degenerative arthritis. #9 History of anxiety/depression. #10 History of abdominal aortic aneurysm. Recommendation: Continue present supportive care measures, possible discharge planning in the next 24 hours, follow-up on outpatient basis. Time with Patient: Less than 30
--- NOTE | 2017-07-20 19:32 | PN ---
PROGRESS NOTE DATE OF SERVICE: 07/20/2017. This 51-year-old gentleman who was admitted with COPD acute exacerbation as well as right upper lobe pneumonia with cavitation has been closely monitored. Patient also had anemia. Patient has constipation. This is improving at this time. No chest pain. No palpitations. No fever. EXAM: Alert and oriented x3. The pulse is 94, blood pressure 86/59, respiration 16, temperature 97.4, pulse ox 98% on 2 L. HEENT: Conjunctivae normal. NECK: No jugular venous distention. CARDIOVASCULAR: S1, S2 RESPIRATORY: Breath sounds diminished in the bases. A few scattered rhonchi. ABDOMEN: Soft. Mild diffuse distention. LEGS: No edema. NERVOUS SYSTEM: No focal deficits. LABS: WBC 6.8, hemoglobin 8.3. Stool OB is positive. ASSESSMENT: 1. Chronic obstructive pulmonary disease acute exacerbation with possible right upper lobe pneumonia with cavitation. 2. Chronic changes and scarring on chest x-ray bilaterally. 3. Anemia possibly secondary to MDS. 4. Acute on chronic back pain. 5. Severe constipation, improving. 6. History of chronic hypoxic respiratory failure. 7. Myelodysplastic syndrome history. 8. Gait dysfunction. 9. Microcytic anemia. 10.Memory impairment. 11.Abdominal aortic aneurysm history. 12.History of bilateral spontaneous pneumothorax and bilateral pleural disease. 13.History of anxiety and depression. 14.History of nicotine dependence. RECOMMENDATIONS AND DISCUSSION: I recommend to continue current management and symptomatic treatment. Continue repeat labs. Increase ambulation. Pain medications. PT/OT evaluation, possible ECF rehab versus home. Guarded prognosis. Further recommendations to follow. MMODL / IJN: [id number] /
[2017-07-20] MEDS: ATORVASTATIN 20 MG TAB PO SCH (20:21)
[2017-07-20] MEDS: MONTELUKAST 10 MG TAB PO SCH (20:21)
[2017-07-21] MEDS: methylPREDNISolone SOD SUCCI 40 MG/ML 1 ML VIAL IV SCH ×4 (01:27→22:36)
[2017-07-21] MEDS: MORPHINE ORAL SOLN 10 MG/5 ML CUP PO PRN ×3 (01:29→10:00)
[2017-07-21] MEDS: HYDROcodone/APAP 10-325MG 1 EACH TAB PO PRN ×2 (02:50→08:48)
[2017-07-21 07:28] LABS: Anisocytosis Slight; Basophils % (A) 0 %; Eosinophils % (A) 0 %; HCT 25.5 % (39.0-53.0); HGB 7.8 gm/dL (13.0-17.5); Hypochromasia Marked; Lymphocytes # (A) 0.6 k/uL (1.0-4.8); Lymphocytes % (A) 15 %; MCH 31.5 pg (25.0-35.0); MCHC 30.5 g/dL (31.0-37.0); MCV 103.3 fL (80.0-100.0); Macrocytosis Moderate; Mean Platelet Volume 7.9; Monocytes # (A) 0.2 k/uL (0-1.0); Monocytes % (A) 6 %; Neutrophils # (A) 3.3 k/uL (1.3-7.7); Neutrophils % (A) 77 %; Platelet Count 243 k/uL (150-450); Poikilocytosis Slight; RBC 2.47 m/uL (4.30-5.90); RDW 19.7 % (11.5-15.5); WBC 4.2 k/uL (3.8-10.6)
[2017-07-21 07:49] LABS: Anion Gap 5 mmol/L; Blood Urea Nitrogen 23 mg/dL (9-20); Calcium 8.5 mg/dL (8.4-10.2); Carbon Dioxide 33 mmol/L (22-30); Chloride 98 mmol/L (98-107); Glucose 106 mg/dL (74-99); Potassium 4.8 mmol/L (3.5-5.1); Sodium 136 mmol/L (137-145)
[2017-07-21 08:39] LABS: Toxic Granulation Present
[2017-07-21] MEDS: PANTOPRAZOLE 40 MG TABLET PO SCH (08:50)
[2017-07-21] MEDS: ASPIRIN 81 MG PO SCH (08:50)
[2017-07-21] MEDS: DOCUSATE 100 MG CAP PO SCH ×2 (08:51→22:36)
[2017-07-21] MEDS: HEPARIN SODIUM,PORCINE 5,000 UNIT/ML 1 ML VIAL SQ SCH ×2 (08:51→22:36)
[2017-07-21] MEDS: AZITHROMYCIN 500 MG TAB PO SCH (08:51)
[2017-07-21] MEDS: LACTULOSE 20 GM/30 ML CUP PO PRN ×3 (08:52→22:35)
[2017-07-21] MEDS: IPRATROPIUM-ALBUTEROL 3 ML NEB INHALATION SCH ×4 (09:15→20:22)
[2017-07-21] MEDS: SYMBICORT 80-4.5 MCG INHALER INHALATION SCH ×2 (09:16→20:22)
[2017-07-21] MEDS: SODIUM FERRIC GLUCONAT-SUCROSE 125 MG in SODIUM CHLORIDE 0.9% 100 ML IVPB SCH (09:59)
[2017-07-21] MEDS: oxyCODONE-APAP 10-325MG 1 EACH TAB PO PRN ×3 (11:41→22:34)
[2017-07-21] MEDS: MULTIVITAMINS, THERA 1 EACH TAB PO SCH (12:21)
[2017-07-21] MEDS: CHOLECALCIFEROL 1,000 UNIT TAB PO SCH (12:21)
--- NOTE | 2017-07-21 15:55 | P.PN ---
Subjective Progress Note Date: 07/21/17 Principal diagnosis: Acute exacerbation of severe oxygen-dependent chronic obstructive pulmonary disease, acute on chronic low back pain This is a very pleasant 51-year-old gentleman who follows with Dr. Corrigan as his primary care physician. He has a known history of aortic aneurysm, previous bilateral pneumothoraces at a young age requiring chest tube insertions and pleurodesis, benign prostatic hypertrophy, degenerative arthritis , macrocytic anemia receiving weekly Epogen, he was also diagnosed with myelodysplastic syndrome, bone marrow biopsy done January 2017. He follows with Dr. French. He also has a significant 40 year pack per day smoking history and oxygen dependent (2 L/m per nasal cannula) chronic obstructive pulmonary disease. He follows with Dr. Latham in our office for the same. He is maintained on Advair, Spiriva, Singulair and albuterol. He presented here on 07/16/2017 to the emergency room with significant low back pain that he rated a 10 out of 10. His been going on for several days and most of his joints and bones have been hurting him. He is being treated with [place], morphine, fentanyl. He is also having complaints of constipation. His chest x- ray reveals evidence of COPD and fibrosis with chronic cavitation, scarring and postsurgical changes in the right upper lobe/apex. There is some underlying patchy airspace disease in the right upper lobe which is similar. Most of his changes are chronic in nature. We are consulted for his COPD exacerbation. He is seen today in consultation on the oncology unit. He is awake and alert in no acute distress. His main complaints continue to be that of joint and low back pain. He is also having concerns with his constipation. He denies any worsening shortness of breath at this time. He does have a loose nonproductive cough. He has been afebrile. No tachycardia. No tachypnea. Maintaining O2 saturations in the mid to upper 90s on 2 L/m per nasal cannula. Blood culture reveals no growth to date. Influenza screen is negative. No leukocytosis. Current white count 5.8. Hemoglobin 6.5. Platelet count 262,000. He is currently on DuoNeb inhalations 4 times a day and when necessary, Symbicort, IV Solu-Medrol. He was also initiated on ceftriaxone and azithromycin. Patient was reevaluated today on 07/20/2017, seems to be doing better, pain is better controlled, pulmonary-frank he is asymptomatic no cough no wheezing no shortness of breath, he is basically about his baseline. CBC is relatively normal hemoglobin is 8.3. Patient received a unit of packed RBCs for a lower hemoglobin On 07/21/2017 patient seen in follow-up on oncology floor. No acute distress, no worsening dyspnea, no significant chest congestion or sputum production. Lung sounds are positive for some fine rales at the left posterior base. Vital signs are stable, patient pulse ox is 99% on 2 L per nasal cannula, patient is afebrile. He states his pain is better controlled today, currently on fentanyl 25 g patch, Toradol, and oral morphine in addition to Percocet. From pulmonary standpoint, he remains stable, no acute issues overnight, continues on IV Solu-Medrol, DuoNeb, Singulair, Symbicort, and Zithromax. Objective - Vital Signs Vital signs: Vital Signs Temp 98.4 F 07/21/17 15:00 Pulse 81 07/21/17 15:00 Resp 18 07/21/17 15:18 BP 111/48 07/21/17 15:00 Pulse Ox 99 07/21/17 15:00 Intake & Output 07/20/17 07/21/17 07/21/17 18:59 06:59 18:59 Intake Total 1500 2640 460 Balance 1500 2640 460 Weight 59.421 kg Intake: Intake, IV Titration 100 Amount Sodium Ferric Gluconat- 100 Sucrose 125 mg In Sodium Chloride 0.9% 100 ml @ 100 mls/hr IVPB DAILY [facility] Rx#:[id number] Oral 1500 2640 360 Other: Voiding Method Toilet Toilet Toilet Urinal Urinal # Voids 4 2 - Exam GENERAL EXAM: Alert, pleasant 51-year-old white male comfortable in no apparent distress. HEAD: Normocephalic/atraumatic. EYES: Normal reaction of pupils, equal size. Conjunctiva pink, sclera white. NOSE: Clear with pink turbinates. THROAT: No erythema or exudates. NECK: No masses, no JVD, no thyroid enlargement, no adenopathy. CHEST: No chest wall deformity. Symmetrical expansion. LUNGS: Equal air entry with fine rales at the left posterior lower lobe, no wheezes, no rhonchi or dullness. CVS: Regular rate and rhythm, normal S1 and S2, no gallops, no murmurs, no rubs ABDOMEN: Soft, nontender. No hepatosplenomegaly, normal bowel sounds, no guarding or rigidity. EXTREMITIES: No clubbing, no edema, no cyanosis, 2+ pulses and upper and lower extremities. MUSCULOSKELETAL: Muscle strength and tone normal. SPINE: No scoliosis or deformity SKIN: No rashes CENTRAL NERVOUS SYSTEM: Alert and oriented -3. No focal deficits, tone is normal in all 4 extremities. PSYCHIATRIC: Alert and oriented -3. Appropriate affect. Intact judgment and insight. - Labs CBC & Chem 7: 07/21/17 06:47 07/21/17 06:47 Labs: Abnormal Lab Results - Last 24 Hours (Table) 07/19/17 07/21/17 07/21/17 Range/Units 07:11 06:47 06:47 RBC 2.47 L (4.30-5.90) m/uL Hgb 7.8 L (13.0-17.5) gm/dL Hct 25.5 L (39.0-53.0) % MCV 103.3 H (80.0-100.0) fL MCHC 30.5 L (31.0-37.0) g/dL RDW 19.7 H (11.5-15.5) % Lymphocytes # 0.6 L (1.0-4.8) k/uL Haptoglobin 325.0 H (31.2-198.0) mg/dL Sodium 136 L (137-145) mmol/L Carbon Dioxide 33 H (22-30) mmol/L BUN 23 H (9-20) mg/dL Glucose 106 H (74-99) mg/dL Iron 54 L (65-175) ug/dL TIBC 225 L (228-460) ug/dL Ferritin 407.4 H (22.0-322.0) ng/mL Microbiology - Last 24 Hours (Table) 07/16/17 16:11 Blood Culture - Preliminary Blood No Growth after 96 hours Assessment and Plan Plan: Assessment: #1 Acute on chronic low back. #2 Acute on chronic macrocytic anemia secondary to myelodysplastic syndrome. Current hemoglobin 6.5. Received 1 unit of packed RBCs for low hemoglobin and presently his hemoglobin is 8.3. #3 Constipation secondary to narcotics. #4 Acute exacerbation of severe oxygen dependent chronic obstructive pulmonary disease. #5 Chronic and ongoing tobacco dependence for approximately 35 years at 1 pack per day. #6 Previous history of spontaneous bilateral pneumothorax requiring chest tube placements and pleurodesis. #7 History of benign prostatic hypertrophy. #8 Chronic degenerative arthritis. #9 History of anxiety/depression. #10 History of abdominal aortic aneurysm. Recommendation: Continue current plan of care, continue Zithromax, nebulized treatments, Symbicort, we'll decrease the Solu-Medrol to 40 mg every 12 hours. Patient's pain is better controlled, anticipate discharge home in the next 24 hours I performed a history & physical examination of the patient and discussed their management with my nurse practitioner, Corie Dasilva. I reviewed the nurse practitioner's note and agree with the documented findings and plan of care. Lung sounds are positive for fine rales at the left lower base. The findings and the impression was discussed with the patient. I attest to the documentation by the nurse practitioner. Time with Patient: Less than 30
--- NOTE | 2017-07-21 16:28 | PN ---
PROGRESS NOTE DATE OF SERVICE: 07/21/2017 This 51-year-old gentleman admitted with COPD exacerbation as well as right upper lobe pneumonia is also complaining of severe pain, including back pain and abdominal pain, as well as constipation. No chest pain. No palpitations. No fever. On exam, alert and oriented x3. Pulse is 91. The blood pressure is 95/46, respiration 22, temperature 98.7, pulse ox 100% on 2 L. HEENT: Conjunctivae normal. NECK: No jugular venous distention. CARDIOVASCULAR SYSTEM: S1, S2 muffled. RESPIRATORY SYSTEM: Breath sounds diminished at the bases. A few scattered rhonchi and crackles. ABDOMEN: Soft, non-tender. LEGS: No edema. No swelling. NERVOUS SYSTEM: No focal deficit. LABS: WBC 4.2, hemoglobin 7.8, sodium 136. ASSESSMENT: 1. Chronic obstructive pulmonary disease, acute exacerbation, with right upper lobe pneumonia and cavitation. 2. Chronic changes and scarring on the chest x-ray bilaterally. 3. Anemia possibly secondary to MDS. 4. Acute on chronic back pain. 5. Abdominal pain and constipation, improving. 6. History of chronic hypoxic respiratory failure. 7. Myelodysplastic syndrome history. 8. Gait dysfunction. 9. Microcytic anemia. 10.Memory impairment. 11.Abdominal aortic aneurysm history. 12.History of bilateral spontaneous pneumothorax and bilateral pleurodeses. 13.History of anxiety, depression. 14.History of nicotine dependence. RECOMMENDATIONS AND DISCUSSION: I recommend to continue current medication, continue symptomatic treatment. Otherwise, possibly home with home care. Continue the rest of the medications. Guarded prognosis. Further recommendations to follow. MMODL / IJN: [id number] /
--- NOTE | 2017-07-21 19:45 | P.CONS ---
History of Present Illness - Reason for Consult Consult date: 07/21/17 - History of Present Illness this is 51 years old male, with a history of myelodysplastic syndrome, and he was treated with Epogen injection, and also patient had a history of COPD, and abdominal aortic aneurysm, who was admitted to [facility], secondary to COPD exacerbation, with possible pneumonia, and severe constipation, shouldn' t was complaining of severe low back pain and severe generalized joint pain, and right hip pain, he was treated with [place] 10/325 every 6 hours and fentanyl patch 12 g every 72 hours, VAS was 8/10 on this regimen, and the medication was increased today to fentanyl 25 g every 72 hours and Percocet 10/325 every 6 hours, and patient reported that he felt significant improvement in his pain after he started on the new regimen, he denies any side effect of the medication Past Medical History Past Medical History: Cancer, COPD, Liver Disease, Memory Impairment, Pneumonia , Prostate Disorder Additional Past Medical History / Comment(s): admitted to [facility] on 05/22/17 with tracheobronchitis. Other hx: Myelodysplastic syndrome pt states diagnosed January [address] French, macrocytic anemia, weekly epogen injections, chronic hypoxic respiratory failure, home O2 at 2L/NC ATC, abdominal aortic aneurysm, bilateral spontaneous pneumothorax (left once and right twice) with chest tubes and pleurodesis, degenerative arthritis, BPH. History of Any Multi-Drug Resistant Organisms: None Reported Additional Past Surgical History / Comment(s): Bilateral pleurodesis, BMA Past Anesthesia/Blood Transfusion Reactions: No Reported Reaction Additional Past Anesthesia/Blood Transfusion Reaction / Comm: pt stated he moved here from [place] a year ago. lives alone in apt-no steps. no outside services received. has home 02 /concentrator. no pets. no past service. 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 Past Psychological History: Anxiety, Depression Additional Psychological History / Comment(s): Pt moved from [place] about a year ago. He lives alone in an apartment with no steps. He has [facility] nurse coming to give him his Epigen injections. He has home O2/concentrator, tank. No pets. No experience. No international travel. No animal exposures. Is not and has no children Smoking Status: Current every day smoker Past Alcohol Use History: None Reported Additional Past Alcohol Use History / Comment(s): Pt started smoking in 1979 Past Drug Use History: None Reported - Past Family History Father History Unknown: Yes Mother Family Medical History: Cancer, Coronary Artery Disease (CAD) Additional Family Medical History / Comment(s): lung cancer, lymphoma. Medications and Allergies Home Medications Medication Instructions Recorded Confirmed Type Fluticasone/Salmeterol [Advair 1 puff INHALATION RT-BID 10/09/16 07/16/17 History 250-50 Diskus] Tiotropium 18 Mcg/Puff [Spiriva] 1 cap INHALATION RT-DAILY 10/09/16 07/16/17 History HYDROcodone/APAP 10-325MG [[place] 1 tab PO QID PRN 01/05/17 07/16/17 History 10-325] Montelukast [Singulair] 10 mg PO HS 01/05/17 07/16/17 History Multivit-Min/FA/Lycopen/Lutein 1 tab PO DAILY 01/27/17 07/16/17 History [Centrum Silver Men Tablet] Epoetin Joe [Procrit] 20,000 unit INJ TH 05/22/17 07/16/17 History Aspirin EC [Ecotrin Low Dose] 81 mg PO DAILY #30 tablet. 05/30/17 07/16/17 Rx Atorvastatin [Lipitor] 20 mg PO HS #30 tab 05/30/17 07/16/17 Rx Azithromycin [Zithromax] 250 mg PO MOWEFR 07/16/17 07/16/17 History Cholecalciferol [Vitamin D3] 4,000 unit PO DAILY 07/16/17 07/16/17 History Ipratropium-Albuterol Nebulize 3 ml INHALATION RT-QID PRN 07/16/17 07/16/17 History [Duoneb 0.5 mg-3 mg/3 ml Soln] fentaNYL 12MCG/HR PATCH [Duragesic 1 patch TRANSDERM Q72H 07/16/17 07/16/17 History 12MCG/HR] predniSONE 20 mg PO DAILY 07/16/17 07/16/17 History Allergies Allergy/AdvReac Type Severity Reaction Status Date / Time No Known Allergies Allergy Verified 07/16/17 14:54 Physical Exam Vitals: Vital Signs Temp Pulse Pulse Resp BP Pulse Ox 07/21/17 16:37 96 07/21/17 16:26 95 07/21/17 16:00 99 07/21/17 15:18 18 07/21/17 15:00 98.4 F 81 20 111/48 99 07/21/17 12:51 95 07/21/17 12:41 95 07/21/17 09:26 90 07/21/17 09:16 91 18 89 L 07/21/17 07:00 98.7 F 76 22 95/46 100 07/21/17 00:00 16 07/20/17 22:58 98.2 F 91 16 106/61 97 Intake and Output 07/21/17 07/21/17 07/21/17 06:59 14:59 22:59 Intake Total 1200 460 Balance 1200 460 Intake: Intake, IV Titration 100 Amount Sodium Ferric Gluconat- 100 Sucrose 125 mg In Sodium Chloride 0.9% 100 ml @ 100 mls/hr IVPB DAILY [facility] Rx#:[id number] Oral 1200 360 Other: Voiding Method Toilet Toilet Toilet Urinal # Voids 4 2 2 Weight 59.421 kg 59.421 kg Physical Examinations : 1-Constitutiona : Cooperative , not in acute distress . 2-HEENT : nech ; supple , no Lymphadenopathy , normal thyroid size . eyes : no ptosis , no icterus, no photophobia . ENT : normal of hearing , normal oropharynx , no Thrush . 3- Respiratory : Chest clear to auscultations Bilaterally , no wheezing , no Rhonchi . 4- Cardiovascular : regular rate and rhythem , S1 , S2 , no S3 , no S4. 5- Gastrointestinal : abdomen soft no tenderness , bowel sounds positive all four quadrents , no organomegally . 6- Genitourinary : Defferred . 7- neurologic : Cranial nerve II to XII intact , no focal neurological deffecit . 8-psychatric : alert , oriented X 3 , appropriate affect , intact judgment and insight . 9-Lymphatic : no Lymphadenopathy . 10- musculoskeltal : cervical spine = motor stregnth in the deltoid and biceps, . , Lumber spine = normal moter stegnth lower extremities ,thigh and legs .5/5 Patient complaining of generalized joint pain and mostly in the right hip area Results CBC & Chem 7: 07/21/17 06:47 07/21/17 06:47 Labs: Abnormal Lab Results - Last 24 Hours (Table) 07/19/17 07/21/17 07/21/17 Range/Units 07:11 06:47 06:47 RBC 2.47 L (4.30-5.90) m/uL Hgb 7.8 L (13.0-17.5) gm/dL Hct 25.5 L (39.0-53.0) % MCV 103.3 H (80.0-100.0) fL MCHC 30.5 L (31.0-37.0) g/dL RDW 19.7 H (11.5-15.5) % Lymphocytes # 0.6 L (1.0-4.8) k/uL Haptoglobin 325.0 H (31.2-198.0) mg/dL Sodium 136 L (137-145) mmol/L Carbon Dioxide 33 H (22-30) mmol/L BUN 23 H (9-20) mg/dL Glucose 106 H (74-99) mg/dL Iron 54 L (65-175) ug/dL TIBC 225 L (228-460) ug/dL Ferritin 407.4 H (22.0-322.0) ng/mL Microbiology - Last 24 Hours (Table) 07/16/17 16:11 Blood Culture - Preliminary Blood No Growth after 120 hours Assessment and Plan Plan: Assessment and plan= generalized bone and joint pain secondary to the emergency( mylodysplastic ), patient reports significant improvement in his pain after the started him on Percocet 10/325, and after increasing the fentanyl patch to 25 g , recommend continuing the same medication. Time with Patient: Greater than 30
[2017-07-21] MEDS: ATORVASTATIN 20 MG TAB PO SCH (22:36)
[2017-07-21] MEDS: MONTELUKAST 10 MG TAB PO SCH (22:36)
[2017-07-21 23:56] VITALS: RESP 20
[2017-07-22] MEDS: LACTULOSE 20 GM/30 ML CUP PO PRN (05:29)
[2017-07-22] MEDS: oxyCODONE-APAP 10-325MG 1 EACH TAB PO PRN ×2 (05:29→13:20)
[2017-07-22 07:35] LABS: Anisocytosis Slight; Basophils % (A) 0 %; Eosinophils % (A) 0 %; HCT 27.8 % (39.0-53.0); HGB 8.7 gm/dL (13.0-17.5); Hypochromasia Moderate; Lymphocytes % (A) 20 %; MCH 32.4 pg (25.0-35.0); MCHC 31.4 g/dL (31.0-37.0); MCV 103.2 fL (80.0-100.0); Macrocytosis Moderate; Mean Platelet Volume 7.7; Monocytes # (A) 0.2 k/uL (0-1.0); Monocytes % (A) 4 %; Neutrophils # (A) 3.9 k/uL (1.3-7.7); Neutrophils % (A) 74 %; Platelet Count 277 k/uL (150-450); Poikilocytosis Slight; RBC 2.69 m/uL (4.30-5.90); RDW 19.8 % (11.5-15.5); WBC 5.3 k/uL (3.8-10.6)
[2017-07-22] MEDS: IPRATROPIUM-ALBUTEROL 3 ML NEB INHALATION SCH ×2 (07:46→11:50)
[2017-07-22] MEDS: SYMBICORT 80-4.5 MCG INHALER INHALATION SCH (07:46)
[2017-07-22 07:53] LABS: Anion Gap 9 mmol/L; Blood Urea Nitrogen 22 mg/dL (9-20); Calcium 8.9 mg/dL (8.4-10.2); Carbon Dioxide 31 mmol/L (22-30); Chloride 98 mmol/L (98-107); Glucose 106 mg/dL (74-99); Potassium 4.2 mmol/L (3.5-5.1); Sodium 138 mmol/L (137-145)
[2017-07-22 08:21] VITALS: BP 108/63; TEMP 97.8
[2017-07-22] MEDS: PANTOPRAZOLE 40 MG TABLET PO SCH (09:33)
[2017-07-22] MEDS: ASPIRIN 81 MG PO SCH (09:34)
[2017-07-22] MEDS: AZITHROMYCIN 500 MG TAB PO SCH (09:34)
[2017-07-22] MEDS: DOCUSATE 100 MG CAP PO SCH (09:34)
[2017-07-22] MEDS: methylPREDNISolone SOD SUCCI 40 MG/ML 1 ML VIAL IV SCH (09:35)
[2017-07-22] MEDS: SODIUM FERRIC GLUCONAT-SUCROSE 125 MG in SODIUM CHLORIDE 0.9% 100 ML IVPB SCH (09:35)
[2017-07-22] MEDS: HEPARIN SODIUM,PORCINE 5,000 UNIT/ML 1 ML VIAL SQ SCH (09:35)
[2017-07-22 11:52] VITALS: PULSE 96
[2017-07-22] MEDS: CHOLECALCIFEROL 1,000 UNIT TAB PO SCH (12:27)
[2017-07-22] MEDS: MULTIVITAMINS, THERA 1 EACH TAB PO SCH (12:28)
--- NOTE | 2017-07-22 13:17 | P.PN ---
Subjective Progress Note Date: 07/22/17 Principal diagnosis: Acute exacerbation of severe oxygen-dependent chronic obstructive pulmonary disease, acute on chronic low back pain This is a very pleasant 51-year-old gentleman who follows with Dr. Corrigan as his primary care physician. He has a known history of aortic aneurysm, previous bilateral pneumothoraces at a young age requiring chest tube insertions and pleurodesis, benign prostatic hypertrophy, degenerative arthritis , macrocytic anemia receiving weekly Epogen, he was also diagnosed with myelodysplastic syndrome, bone marrow biopsy done January 2017. He follows with Dr. French. He also has a significant 40 year pack per day smoking history and oxygen dependent (2 L/m per nasal cannula) chronic obstructive pulmonary disease. He follows with Dr. Latham in our office for the same. He is maintained on Advair, Spiriva, Singulair and albuterol. He presented here on 07/16/2017 to the emergency room with significant low back pain that he rated a 10 out of 10. His been going on for several days and most of his joints and bones have been hurting him. He is being treated with [place], morphine, fentanyl. He is also having complaints of constipation. His chest x- ray reveals evidence of COPD and fibrosis with chronic cavitation, scarring and postsurgical changes in the right upper lobe/apex. There is some underlying patchy airspace disease in the right upper lobe which is similar. Most of his changes are chronic in nature. We are consulted for his COPD exacerbation. He is seen today in consultation on the oncology unit. He is awake and alert in no acute distress. His main complaints continue to be that of joint and low back pain. He is also having concerns with his constipation. He denies any worsening shortness of breath at this time. He does have a loose nonproductive cough. He has been afebrile. No tachycardia. No tachypnea. Maintaining O2 saturations in the mid to upper 90s on 2 L/m per nasal cannula. Blood culture reveals no growth to date. Influenza screen is negative. No leukocytosis. Current white count 5.8. Hemoglobin 6.5. Platelet count 262,000. He is currently on DuoNeb inhalations 4 times a day and when necessary, Symbicort, IV Solu-Medrol. He was also initiated on ceftriaxone and azithromycin. Patient was reevaluated today on 07/20/2017, seems to be doing better, pain is better controlled, pulmonary-frank he is asymptomatic no cough no wheezing no shortness of breath, he is basically about his baseline. CBC is relatively normal hemoglobin is 8.3. Patient received a unit of packed RBCs for a lower hemoglobin On 07/21/2017 patient seen in follow-up on oncology floor. No acute distress, no worsening dyspnea, no significant chest congestion or sputum production. Lung sounds are positive for some fine rales at the left posterior base. Vital signs are stable, patient pulse ox is 99% on 2 L per nasal cannula, patient is afebrile. He states his pain is better controlled today, currently on fentanyl 25 g patch, Toradol, and oral morphine in addition to Percocet. From pulmonary standpoint, he remains stable, no acute issues overnight, continues on IV Solu-Medrol, DuoNeb, Singulair, Symbicort, and Zithromax. On 07/22/2017 patient seen in follow-up on oncology floor. Denies any worsening dyspnea, currently on room air, lung sounds are clear to auscultation , pulse ox on 2 L per nasal cannula was measured at 97% this morning. Patient is afebrile, hemodynamically stable. His cough and dyspnea continue to improve. Patient has been treated with a combination of Zithromax, IV Solu- Medrol, Singulair, nebulized treatments, Symbicort. His right-sided chest wall pain is under better control. From pulmonary standpoint patient is stable for discharge home today. Follow-up with Dr. Latham in the office in one week Objective - Vital Signs Vital signs: Vital Signs Temp 97.8 F 07/22/17 07:00 Pulse 96 07/22/17 12:04 Resp 20 07/22/17 07:00 BP 108/63 07/22/17 07:00 Pulse Ox 97 07/22/17 07:00 Intake & Output 07/21/17 07/22/17 07/22/17 18:59 06:59 18:59 Intake Total 460 1140 Balance 460 1140 Weight 59.421 kg Intake: Intake, IV Titration 100 Amount Sodium Ferric Gluconat- 100 Sucrose 125 mg In Sodium Chloride 0.9% 100 ml @ 100 mls/hr IVPB DAILY [facility] Rx#:[id number] Oral 360 1140 Other: Voiding Method Toilet Toilet # Voids 2 3 - Exam GENERAL EXAM: Alert, pleasant 51-year-old white male comfortable in no apparent distress. HEAD: Normocephalic/atraumatic. EYES: Normal reaction of pupils, equal size. Conjunctiva pink, sclera white. NOSE: Clear with pink turbinates. THROAT: No erythema or exudates. NECK: No masses, no JVD, no thyroid enlargement, no adenopathy. CHEST: No chest wall deformity. Symmetrical expansion. LUNGS: Equal air entry bilaterally, no crackles, no rhonchi, no wheezes CVS: Regular rate and rhythm, normal S1 and S2, no gallops, no murmurs, no rubs ABDOMEN: Soft, nontender. No hepatosplenomegaly, normal bowel sounds, no guarding or rigidity. EXTREMITIES: No clubbing, no edema, no cyanosis, 2+ pulses and upper and lower extremities. MUSCULOSKELETAL: Muscle strength and tone normal. SPINE: No scoliosis or deformity SKIN: No rashes CENTRAL NERVOUS SYSTEM: Alert and oriented -3. No focal deficits, tone is normal in all 4 extremities. PSYCHIATRIC: Alert and oriented -3. Appropriate affect. Intact judgment and insight. - Labs CBC & Chem 7: 07/22/17 06:39 07/22/17 06:39 Labs: Abnormal Lab Results - Last 24 Hours (Table) 07/22/17 07/22/17 Range/Units 06:39 06:39 RBC 2.69 L (4.30-5.90) m/uL Hgb 8.7 L (13.0-17.5) gm/dL Hct 27.8 L (39.0-53.0) % MCV 103.2 H (80.0-100.0) fL RDW 19.8 H (11.5-15.5) % Carbon Dioxide 31 H (22-30) mmol/L BUN 22 H (9-20) mg/dL Creatinine 0.64 L (0.66-1.25) mg/dL Glucose 106 H (74-99) mg/dL Microbiology - Last 24 Hours (Table) 07/16/17 16:11 Blood Culture - Preliminary Blood No Growth after 120 hours Assessment and Plan Plan: Assessment: #1 Acute on chronic low back. #2 Acute on chronic macrocytic anemia secondary to myelodysplastic syndrome. Current hemoglobin 6.5. Received 1 unit of packed RBCs for low hemoglobin and presently his hemoglobin is 8.7. #3 Constipation secondary to narcotics. #4 Acute exacerbation of severe oxygen dependent chronic obstructive pulmonary disease. #5 Chronic and ongoing tobacco dependence for approximately 35 years at 1 pack per day. #6 Previous history of spontaneous bilateral pneumothorax requiring chest tube placements and pleurodesis. #7 History of benign prostatic hypertrophy. #8 Chronic degenerative arthritis. #9 History of anxiety/depression. #10 History of abdominal aortic aneurysm. Recommendation: Patient continues to improve, denies any worsening dyspnea, currently on room air, tolerating ambulation. His right-sided chest and back pain are under better control, patient is on a combination of fentanyl patch and oral Percocet. From pulmonary standpoint patient is stable for discharge home this afternoon, on outpatient course of Zithromax, prednisone taper, and his maintenance Spiriva, Advair, Singulair, and nebulized DuoNeb. Follow-up with Dr. Latham in the office in one week. I performed a history & physical examination of the patient and discussed their management with my nurse practitioner, Corie Dasilva. I reviewed the nurse practitioner's note and agree with the documented findings and plan of care. Lung sounds are clear. The findings and the impression was discussed with the patient. I attest to the documentation by the nurse practitioner. Time with Patient: Less than 30
--- NOTE | 2017-07-22 22:08 | DS ---
DISCHARGE SUMMARY DATE OF SERVICE: 07/22/2017 FINAL DIAGNOSES: 1. Chronic obstructive pulmonary disease acute exacerbation with right upper lobe pneumonia and cavitation. 2. Chronic changes and scarring of the chest x-ray bilaterally. 3. Anemia, possibly secondary to MDS. 4. Acute on chronic back pain. 5. Abdominal pain and constipation, improving. 6. History of chronic hypoxic respiratory failure. 7. Myelodysplastic syndrome. 8. Gait dysfunction. 9. Microcytic anemia. 10.Memory impairment. 11.Abdominal aortic aneurysm history. 12.History of bilateral spontaneous pneumothorax and bilateral pleurodesis. 13.Anxiety/depression. 14.History of nicotine dependence. DISCHARGE DISPOSITION: Patient being discharged in stable condition. Total time taken 35 minutes. The patient being discharged in stable with guarded prognosis. Discharge cleared by multiple consultants. HISTORY: This 51-year-old gentleman with a past medical history of multiple medical problems was admitted with COPD exacerbation with pneumonia, cavitary lesion which is stable. The patient improved significantly with antibiotics. Multiple consultants including hematology/Oncology and Pulmonary saw the patient. Pain management has also seen the patient and adjusted the pain medication. On exam, vital signs stable. Cardiac systems: S1, S2. Respiration: A few scattered rhonchi. DISCHARGE ADVICE AND MEDICATIONS: 1. Diet is cardiac diet. 2. Activity limited until followup. 3. Follow up with Dr. Corrigan in 2-3 days. 4. Follow up with Dr. Latham as advised. 5. Follow up with Hematology/Oncology as advised. MEDICATIONS ARE: 1. Ecotrin 81 mg p.o. daily. 2. Lipitor 10 mg q.h.s. 3. Zithromax 250 mg p.o. daily for 5 days. 4. Vitamin D3, 4000 daily. 5. Colace 100 mg p.o. b.i.d. 6. Procrit 20,000 . 7. Fentanyl 25 mcg patch every 72 hours. 8. Advair 1 puff b.i.d. 9. DuoNeb q.i.d. and p.r.n. 10.Cephulac 30 g b.i.d. p.r.n. 11.Singular 10 mg q.h.s. 12.Multivitamins one p.o. daily. 13.Oxycodone 10 mg q.6h p.r.n. 14.Prednisone 20 mg p.o. daily taper. 15.Spiriva 18 puffs 1 puff daily. Once again, the patient is being discharged in stable condition with guarded prognosis. FIDELIAL / IJN: [id number] /
== END 2017-07-22 13:40 | disposition home health service (06) | DRG 194 ==
LOC: EC 14:24 → 5ONC 16:55
PROVIDERS: ADMIT Internal Medicine; ATTEND Internal Medicine
PROC: 30233N1 Transfusion of Nonautologous Red Blood Cells into Peripheral Vein, Percutaneous Approach (ICD-10-PCS; principal; 2017-07-19)
DX: J18.9 Pneumonia, unspecified organism (principal); J44.0 Chronic obstructive pulmonary disease with (acute) lower respiratory infection; J96.11 Chronic respiratory failure with hypoxia; C94.6 Myelodysplastic disease, not elsewhere classified; Z99.81 Dependence on supplemental oxygen; J44.1 Chronic obstructive pulmonary disease with (acute) exacerbation; D46.9 Myelodysplastic syndrome, unspecified; D53.9 Nutritional anemia, unspecified; D63.8 Anemia in other chronic diseases classified elsewhere; D50.9 Iron deficiency anemia, unspecified; E86.0 Dehydration; R62.7 Adult failure to thrive; K59.03 Drug induced constipation; T40.605A Adverse effect of unspecified narcotics, initial encounter; I71.4 Abdominal aortic aneurysm, without rupture; G89.29 Other chronic pain; M54.5 Low back pain; F41.9 Anxiety disorder, unspecified; F32.9 Major depressive disorder, single episode, unspecified; M19.91 Primary osteoarthritis, unspecified site; F17.210 Nicotine dependence, cigarettes, uncomplicated; K76.9 Liver disease, unspecified; N40.0 Benign prostatic hyperplasia without lower urinary tract symptoms; R26.9 Unspecified abnormalities of gait and mobility; Z71.6 Tobacco abuse counseling; Z79.82 Long term (current) use of aspirin; Z79.51 Long term (current) use of inhaled steroids; Z79.899 Other long term (current) drug therapy; Z80.7 Family history of other malignant neoplasms of lymphoid, hematopoietic and related tissues
CPT/HCPCS: 36415; 71046; 72110; 74018; 80048; 80053; 82150; 82272; 82550; 82553; 82607; 82728; 82746; 83010; 83540; 83550; 83605; 83615; 83690; 83735; 85025; 85045; 86850; 86900; 86901; 86920; 87040; 87502; 94640; 94760; 96361; 96365; 96375; 99285

== ENCOUNTER 2017-07-24 05:19 | Emergency (ER) | payer MEDICARE ==
[2017-07-24 05:30] VITALS: BP 116/74; PULSE 100; RESP 18; TEMP 99.4
--- NOTE | 2017-07-24 05:53 | ED ---
General Adult HPI - General Chief complaint: Recheck/Abnormal Lab/Rx Stated complaint: withdrawal Time Seen by Provider: 07/24/17 05:20 Source: patient, EMS Mode of arrival: EMS Limitations: no limitations - History of Present Illness Initial comments: This is a 51-year-old male with multiple medical problems and chronic pain who presents emergency department for "pain all over". The patient was recently discharged from the hospital couple of days ago. He saw a pain specialist at that time placed him on 25 g fentanyl patches and Percocet. He was able to get the Percocet filled out however unable to get the final patches filled because the pharmacy would not break a full box. The patient is still wearing the femoral patch she was given in the hospital. He states that his joints just ache and feels like to have shooting pains. He states that the worst amount of pain is in his lower back and is worse with coughing. He states that he is unsure what is causing his pain however he wants to be figured out. Again the patient was recently admitted for this problem and suspected to be from his MDS as versus his Procrit injections. He denies any fevers or chills. No abdominal pain. No chest pain. No other complaints. - Related Data Home Medications Medication Instructions Recorded Confirmed Fluticasone/Salmeterol [Advair 1 puff INHALATION RT-BID 10/09/16 07/16/17 250-50 Diskus] Tiotropium 18 Mcg/Puff [Spiriva] 1 cap INHALATION RT-DAILY 10/09/16 07/16/17 Montelukast [Singulair] 10 mg PO HS 01/05/17 07/16/17 Multivit-Min/FA/Lycopen/Lutein 1 tab PO DAILY 01/27/17 07/16/17 [Centrum Silver Men Tablet] Epoetin Joe [Procrit] 20,000 unit INJ TH 05/22/17 07/16/17 Azithromycin [Zithromax] 250 mg PO MOWEFR 07/16/17 07/16/17 Cholecalciferol [Vitamin D3] 4,000 unit PO DAILY 07/16/17 07/16/17 Previous Rx's Medication Instructions Recorded Aspirin EC [Ecotrin Low Dose] 81 mg PO DAILY #30 tablet. 05/30/17 Atorvastatin [Lipitor] 20 mg PO HS #30 tab 05/30/17 Azithromycin [Zithromax] 500 mg PO DAILY #5 tab 07/22/17 Docusate [Colace] 100 mg PO BID #60 cap 07/22/17 Ipratropium-Albuterol Nebulize 3 ml INHALATION RT-QID #0 07/22/17 [Duoneb 0.5 mg-3 mg/3 ml Soln] Lactulose [Cephulac] 30 gm PO BID PRN #400 ml 07/22/17 fentaNYL 25MCG/HR PATCH [Duragesic 1 patch TRANSDERM Q72H #3 patch 07/22/17 25MCG/HR] oxyCODONE-APAP 10-325MG [Percocet 1 each PO Q6H PRN #20 tab 07/22/17 10-325 mg] predniSONE 10 mg PO DIRECTED #30 tab 07/22/17 fentaNYL 25MCG/HR PATCH [Duragesic 1 patch TRANSDERM Q72H #5 patch 07/24/17 25MCG/HR] oxyCODONE HCL/ACETAMINOPHEN 1 tab PO Q6HR PRN #8 tab 07/24/17 [Percocet 10-325 mg] Allergies Allergy/AdvReac Type Severity Reaction Status Date / Time No Known Allergies Allergy Verified 07/16/17 14:54 Review of Systems ROS Statement: Those systems with pertinent positive or pertinent negative responses have been documented in the HPI. ROS Other: All systems not noted in ROS Statement are negative. Past Medical History Past Medical History: Cancer, COPD, Liver Disease, Memory Impairment, Pneumonia , Prostate Disorder Additional Past Medical History / Comment(s): admitted to [facility] on 05/22/17 with tracheobronchitis. Other hx: Myelodysplastic syndrome pt states diagnosed January [address] French, macrocytic anemia, weekly epogen injections, chronic hypoxic respiratory failure, home O2 at 2L/NC ATC, abdominal aortic aneurysm, bilateral spontaneous pneumothorax (left once and right twice) with chest tubes and pleurodesis, degenerative arthritis, BPH. History of Any Multi-Drug Resistant Organisms: None Reported Additional Past Surgical History / Comment(s): Bilateral pleurodesis, BMA Past Anesthesia/Blood Transfusion Reactions: No Reported Reaction Additional Past Anesthesia/Blood Transfusion Reaction / Comment(s): pt stated he moved here from [place] a year ago. lives alone in apt-no steps. no outside services received. has home 02 /concentrator. no pets. no past service. 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 Past Psychological History: Anxiety, Depression Smoking Status: Current every day smoker Past Alcohol Use History: None Reported Past Drug Use History: None Reported - Past Family History Father History Unknown: Yes Mother Family Medical History: Cancer, Coronary Artery Disease (CAD) Additional Family Medical History / Comment(s): lung cancer, lymphoma. General Exam - General Exam Comments Initial Comments: Constitutional: Awake alert Appears comfortable, pale Head: Normocephalic atraumatic Eyes: no conjunctival injection No scleral icterus EOMI Neck: No JVD Supple Heart: Regular rate rhythm normal S1-S2 no murmurs Lungs: Clear to auscultation bilaterally No wheezing No rales Abdomen: Soft nondistended nontender Back: Tenderness to palpation along the patient's entire spine but worse in his lower back. Extremities: Non edematous DP pulses intact Radial pulses intact Neuro: A&Ox3 No focal neurologic deficits Psych: Appropriate mood and affect Limitations: no limitations Course Vital Signs 07/24/17 07/24/17 05:21 05:30 Temperature 99.4 F Pulse Rate 100 Respiratory 18 Rate Blood Pressure 116/74 O2 Sat by Pulse 90 L 97 Oximetry Medical Decision Making - Medical Decision Making This is a 51-year-old male with a history of COPD and chronic pain who presents emergency department for worsening pain. The patient was unable to fill his No patches and I believe this is likely the cause for his worsening discomfort. I did obtain x-rays because the patient was having a worsening cough and low back pain. His oxygen saturations were at baseline through out the entire ED stay. Chest x-ray did show some subcutaneous emphysema in the right shoulder and neck. The patient is had this multiple times in the past. I did speak with Dr. Araya who knew the patient very well. He stated that this was chronic and he did not feel that this was something that the patient needed to stay in the hospital for. Patient did not state that he had any shortness of breath. He was updated that he has a compression fracture of L1. He has an appointment with his primary doctor tomorrow. He is going to follow-up with them. I did tell him that I would write him for Fentanyl patches that would be able to be filled by the pharmacy. All questions were answered. Disposition Clinical Impression: Chronic back pain, Subcutaneous emphysema Disposition: HOME SELF-CARE Condition: Stable Instructions: Low Back Strain (ED) Prescriptions: fentaNYL 25MCG/HR PATCH [Duragesic 25MCG/HR] 1 patch TRANSDERM Q72H #5 patch oxyCODONE HCL/ACETAMINOPHEN [Percocet 10-325 mg] 1 tab PO Q6HR PRN #8 tab PRN Reason: Pain Referrals: Yang Corrigan DO [Primary Care Provider] - 1-2 days
--- NOTE | 2017-07-24 06:03 | XR ---
EXAM: XR Lumbar Spine, 2 or 3 Views CLINICAL HISTORY: back pain TECHNIQUE: Frontal and lateral views of the lumbar spine. COMPARISON: 07/16/17 FINDINGS: Vertebrae: Mild superior endplate compression defect at L1 appears decreased from 32 to 30 mm in height. Normal alignment. Disc spaces: Mild degenerative disc disease. Soft tissues: Unremarkable. Vasculature: minimal vascular calcifications. IMPRESSION: Mild superior endplate compression defect at L1 appears slightly worse compared to the prior study. Please correlate with location of pain.
--- NOTE | 2017-07-24 06:08 | XR ---
ADDENDUM - Added by Rm Gerard M.D. on 07/24/2017 6:08 AM (-04:00) COMPARISON: 07/17/17, 07/16/17 EXAM: XR Chest, 2 Views CLINICAL HISTORY: Pain TECHNIQUE: Frontal and lateral views of the chest. COMPARISON: 07/17/17, 07/16/14 FINDINGS: Lungs: Patchy airspace opacities over right upper lung zone, similar to on the prior study. In association with, suggest scarring related to partial pneumonectomy. Small amount airspace opacities over lower lung zones are similar to the prior study. Moderate centrilobular pulmonary emphysema with upper lung predominance. Pleural space: Unremarkable. No pneumothorax. Heart: Unremarkable. No cardiomegaly. Mediastinum: Unremarkable. Bones/joints: Osteopenia. Soft tissue: gas in the right neck, above right clavicle, is new. IMPRESSION: 1. No substantial change in pulmonary findings. 2. Moderate centrilobular pulmonary emphysema with upper lung predominance. 3. Soft tissue gas in the right neck, above right clavicle, is new. Although not definitively visualize, pneumomediastinum be considered. [employer] 07/24/17 06:22 Verify Receipt Verified receipt with Danay charles, given to Dr. Gilman on 07/24 06:21 (-04:00)
== END 2017-07-24 07:14 | disposition home or self-care (01) ==
LOC: EC 05:19
DX: T79.7XXA Traumatic subcutaneous emphysema, initial encounter (principal); M54.5 Low back pain; G89.29 Other chronic pain; J44.9 Chronic obstructive pulmonary disease, unspecified; F17.200 Nicotine dependence, unspecified, uncomplicated; Z79.51 Long term (current) use of inhaled steroids; Z79.899 Other long term (current) drug therapy; Z53.20 Procedure and treatment not carried out because of patient's decision for unspecified reasons; Z85.9 Personal history of malignant neoplasm, unspecified
CPT/HCPCS: 71046; 72100; 99284

== ENCOUNTER 2017-08-04 19:56 | Emergency (ER) | payer MEDICARE ==
[2017-08-04 20:32] LABS: Anisocytosis Slight; Basophils % (A) 0 %; Eosinophils # (A) 0.1 k/uL (0-0.7); Eosinophils % (A) 1 %; Hypochromasia Slight; Lymphocytes # (A) 1.5 k/uL (1.0-4.8); Lymphocytes % (A) 26 %; MCHC 31.2 g/dL (31.0-37.0); MCV 102.8 fL (80.0-100.0); Macrocytosis Moderate; Mean Platelet Volume 7.2; Monocytes # (A) 0.3 k/uL (0-1.0); Monocytes % (A) 5 %; Neutrophils # (A) 3.5 k/uL (1.3-7.7); Neutrophils % (A) 64 %; Platelet Count 275 k/uL (150-450); Poikilocytosis Slight; RBC 2.82 m/uL (4.30-5.90); RDW 19.2 % (11.5-15.5); WBC 5.5 k/uL (3.8-10.6)
--- NOTE | 2017-08-04 20:34 | ED ---
SOB HPI - General Chief Complaint: Shortness of Breath Stated Complaint: SOB Time Seen by Provider: 08/04/17 20:10 Source: patient Mode of arrival: wheelchair Limitations: no limitations - History of Present Illness Initial Comments: This patient's 51-year-old man who has history of COPD and previous pneumonias. He presents with concern that he has a recurrence of pneumonia as she has been coughing greenish sputum for about 2 days. Patient states he also has some shortness of breath, but not much greater than his baseline. He is on home oxygen 24 hours. He states he has not run out of any of his inhaled medications. He sees Dr. Noa amor from pulmonology. He has not noted fever or chills. He has not had any chest pain. MD Complaint: cough Onset/Timin -: days(s) Consistency: constant Improves With: nothing Worsens With: nothing Known History Of: COPD Associated Symptoms: cough, sputum production Treatments Prior to Arrival: oxygen, bronchodilator - Related Data Home Oxygen Therapy: Yes Home Oxygen Amount: 2 Liters Home Medications Medication Instructions Recorded Confirmed Fluticasone/Salmeterol [Advair 1 puff INHALATION RT-BID 10/09/16 08/04/17 250-50 Diskus] Tiotropium 18 Mcg/Puff [Spiriva] 1 cap INHALATION RT-DAILY 10/09/16 08/04/17 Montelukast [Singulair] 10 mg PO HS 01/05/17 08/04/17 Multivit-Min/FA/Lycopen/Lutein 1 tab PO DAILY 01/27/17 08/04/17 [Centrum Silver Men Tablet] Azithromycin [Zithromax] 250 mg PO MOWEFR 07/16/17 08/04/17 predniSONE 10 mg PO DAILY 08/04/17 08/04/17 Previous Rx's Medication Instructions Recorded Aspirin EC [Ecotrin Low Dose] 81 mg PO DAILY #30 tablet. 05/30/17 Atorvastatin [Lipitor] 20 mg PO HS #30 tab 05/30/17 Ipratropium-Albuterol Nebulize 3 ml INHALATION RT-QID #0 07/22/17 [Duoneb 0.5 mg-3 mg/3 ml Soln] fentaNYL 25MCG/HR PATCH [Duragesic 1 patch TRANSDERM Q72H #5 patch 07/24/17 25MCG/HR] oxyCODONE HCL/ACETAMINOPHEN 1 tab PO Q6HR PRN #8 tab 07/24/17 [Percocet 10-325 mg] Doxycycline Hyclate 100 mg PO BID #14 tab 08/04/17 Allergies Allergy/AdvReac Type Severity Reaction Status Date / Time No Known Allergies Allergy Verified 08/04/17 20:12 Review of Systems ROS Statement: Those systems with pertinent positive or pertinent negative responses have been documented in the HPI. ROS Other: All systems not noted in ROS Statement are negative. Constitutional: Denies: fever, chills Respiratory: Reports: cough, dyspnea, wheezes. Denies: hemoptysis Cardiovascular: Denies: chest pain, palpitations, edema, syncope Gastrointestinal: Denies: abdominal pain, vomiting, diarrhea Genitourinary: Denies: dysuria, hematuria Musculoskeletal: Denies: back pain Skin: Denies: rash Neurological: Denies: headache, weakness, numbness Past Medical History Past Medical History: Cancer, COPD, Liver Disease, Memory Impairment, Pneumonia , Prostate Disorder Additional Past Medical History / Comment(s): admitted to [facility] on 05/22/17 with tracheobronchitis. Other hx: Myelodysplastic syndrome pt states diagnosed January [address] French, macrocytic anemia, weekly epogen injections, chronic hypoxic respiratory failure, home O2 at 2L/NC ATC, abdominal aortic aneurysm, bilateral spontaneous pneumothorax (left once and right twice) with chest tubes and pleurodesis, degenerative arthritis, BPH. History of Any Multi-Drug Resistant Organisms: None Reported Additional Past Surgical History / Comment(s): Bilateral pleurodesis, BMA Past Anesthesia/Blood Transfusion Reactions: No Reported Reaction Additional Past Anesthesia/Blood Transfusion Reaction / Comment(s): pt stated he moved here from [place] a year ago. lives alone in apt-no steps. no outside services received. has home 02 /concentrator. no pets. no past service. 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 Past Psychological History: Anxiety, Depression Smoking Status: Current every day smoker Past Alcohol Use History: None Reported Past Drug Use History: None Reported - Past Family History Father History Unknown: Yes Mother Family Medical History: Cancer, Coronary Artery Disease (CAD) Additional Family Medical History / Comment(s): lung cancer, lymphoma. General Exam Limitations: no limitations General appearance: alert, in no apparent distress Head exam: Present: atraumatic, normocephalic Eye exam: Present: normal appearance. Absent: scleral icterus, conjunctival injection ENT exam: Present: normal oropharynx Neck exam: Present: normal inspection Respiratory exam: Present: respiratory distress (Mild tachypnea. At my exam the rate is 22.), wheezes. Absent: rales, rhonchi, stridor, chest wall tenderness, accessory muscle use, decreased breath sounds Cardiovascular Exam: Present: regular rate (At my exam the rate is 96 bpm), normal rhythm, normal heart sounds. Absent: systolic murmur, diastolic murmur, rubs, gallop GI/Abdominal exam: Present: soft. Absent: distended, tenderness, guarding, rebound, mass Extremities exam: Present: normal inspection, normal capillary refill. Absent: pedal edema, calf tenderness Back exam: Present: normal inspection. Absent: CVA tenderness (R), CVA tenderness (L) Neurological exam: Present: alert Skin exam: Present: warm, dry, intact, normal color. Absent: rash Course Vital Signs 08/04/17 08/04/17 08/04/17 20:00 20:40 21:19 Temperature 98.5 F Pulse Rate 117 H 107 H 94 Respiratory 32 H 20 Rate Blood Pressure 105/65 112/78 O2 Sat by Pulse 98 99 Oximetry 08/04/17 08/04/17 08/04/17 21:31 21:58 22:10 Temperature Pulse Rate 96 97 96 Respiratory Rate Blood Pressure O2 Sat by Pulse Oximetry Medical Decision Making - Lab Data Result diagrams: 08/04/17 21:41 08/04/17 20:20 Lab Results 08/04/17 08/04/17 08/04/17 Range/Units 20:20 20:20 20:20 WBC 5.5 (3.8-10.6) k/uL RBC 2.82 L (4.30-5.90) m/uL Hgb 9.1 L D (13.0-17.5) gm/dL Hct 29.0 L (39.0-53.0) % MCV 102.8 H (80.0-100.0) fL MCH 32.0 (25.0-35.0) pg MCHC 31.2 (31.0-37.0) g/dL RDW 19.2 H (11.5-15.5) % Plt Count 275 (150-450) k/uL Neutrophils % 64 % Lymphocytes % 26 % Monocytes % 5 % Eosinophils % 1 % Basophils % 0 % Neutrophils # 3.5 (1.3-7.7) k/uL Lymphocytes # 1.5 (1.0-4.8) k/uL Monocytes # 0.3 (0-1.0) k/uL Eosinophils # 0.1 (0-0.7) k/uL Basophils # 0.0 (0-0.2) k/uL Hypochromasia Slight Poikilocytosis Slight Anisocytosis Slight Macrocytosis Moderate PT (9.0-12.0) sec INR (<1.2) APTT (22.0-30.0) sec Sodium 139 (137-145) mmol/L Potassium 3.9 (3.5-5.1) mmol/L Chloride 101 (98-107) mmol/L Carbon Dioxide 26 (22-30) mmol/L Anion Gap 12 mmol/L BUN 17 (9-20) mg/dL Creatinine 0.66 (0.66-1.25) mg/dL Est GFR (CKD-EPI)AfAm >90 (>60 ml/min/1.73 sqM) Est GFR (CKD-EPI)NonAf >90 (>60 ml/min/1.73 sqM) Glucose 85 (74-99) mg/dL Calcium 9.0 (8.4-10.2) mg/dL Total Bilirubin 0.5 (0.2-1.3) mg/dL AST 18 (17-59) U/L ALT 21 (21-72) U/L Alkaline Phosphatase 115 (38-126) U/L Total Creatine Kinase 30 L (55-170) U/L CK-MB (CK-2) 0.5 (0.0-2.4) ng/mL CK-MB (CK-2) Rel Index 1.7 Troponin I <0.012 (0.000-0.034) ng/mL NT-Pro-B Natriuret Pep pg/mL Total Protein 7.2 (6.3-8.2) g/dL Albumin 3.4 L (3.5-5.0) g/dL 08/04/17 08/04/17 08/04/17 Range/Units 20:20 20:20 21:41 WBC 5.4 (3.8-10.6) k/uL RBC 2.77 L (4.30-5.90) m/uL Hgb 9.0 L (13.0-17.5) gm/dL Hct 28.3 L (39.0-53.0) % MCV 102.4 H (80.0-100.0) fL MCH 32.5 (25.0-35.0) pg MCHC 31.8 (31.0-37.0) g/dL RDW 19.3 H (11.5-15.5) % Plt Count 253 (150-450) k/uL Neutrophils % % Lymphocytes % % Monocytes % % Eosinophils % % Basophils % % Neutrophils # (1.3-7.7) k/uL Lymphocytes # (1.0-4.8) k/uL Monocytes # (0-1.0) k/uL Eosinophils # (0-0.7) k/uL Basophils # (0-0.2) k/uL Hypochromasia Moderate Poikilocytosis Slight Anisocytosis Slight Macrocytosis Moderate PT 9.8 (9.0-12.0) sec INR 1.0 (<1.2) APTT 22.6 (22.0-30.0) sec Sodium (137-145) mmol/L Potassium (3.5-5.1) mmol/L Chloride (98-107) mmol/L Carbon Dioxide (22-30) mmol/L Anion Gap mmol/L BUN (9-20) mg/dL Creatinine (0.66-1.25) mg/dL Est GFR (CKD-EPI)AfAm (>60 ml/min/1.73 sqM) Est GFR (CKD-EPI)NonAf (>60 ml/min/1.73 sqM) Glucose (74-99) mg/dL Calcium (8.4-10.2) mg/dL Total Bilirubin (0.2-1.3) mg/dL AST (17-59) U/L ALT (21-72) U/L Alkaline Phosphatase (38-126) U/L Total Creatine Kinase (55-170) U/L CK-MB (CK-2) (0.0-2.4) ng/mL CK-MB (CK-2) Rel Index Troponin I (0.000-0.034) ng/mL NT-Pro-B Natriuret Pep 300 pg/mL Total Protein (6.3-8.2) g/dL Albumin (3.5-5.0) g/dL - EKG Data -: EKG Interpreted by Me EKG shows normal: sinus rhythm, axis (Normal), intervals (Normal), QRS complexes (Normal), ST-T waves (Normal) Rate: normal (Rate 99 bpm) Interpretation: normal EKG Disposition Clinical Impression: Bronchitis, Anemia Disposition: HOME SELF-CARE Condition: Fair Instructions: Acute Bronchitis (ED) Prescriptions: Doxycycline Hyclate 100 mg PO BID #14 tab Referrals: Yang Corrigan DO [Primary Care Provider] - 1-2 days
[2017-08-04 20:35] LABS: HGB 9.1 gm/dL (13.0-17.5)
--- NOTE | 2017-08-04 20:37 | XR ---
EXAMINATION TYPE: XR chest 1V portable DATE OF EXAM: 08/04/2017 COMPARISON: 07/24/2017 HISTORY: Cough TECHNIQUE: Single frontal view of the chest is obtained. FINDINGS: There is patchy infiltrate at the lung bases. There is also some coalescent infiltrate and pleural thickening in the right upper lobe. There is no gross heart failure. Heart size is normal. T here are chest leads. IMPRESSION: Extensive pulmonary density consistent with advanced fibrosis and COPD. No change compar ed to last exam. Pleural thickening is increased slightly compared to old exam of 10/10/2016.
[2017-08-04 20:41] LABS: ALT 21 U/L (21-72); AST 18 U/L (17-59); Albumin 3.4 g/dL (3.5-5.0); Alkaline Phosphatase 115 U/L (38-126); Anion Gap 12 mmol/L; Blood Urea Nitrogen 17 mg/dL (9-20); Carbon Dioxide 26 mmol/L (22-30); Chloride 101 mmol/L (98-107); Glucose 85 mg/dL (74-99); Partial Thromboplastin Time 22.6 sec (22.0-30.0); Potassium 3.9 mmol/L (3.5-5.1); Prothrombin Time 9.8 sec (9.0-12.0); Sodium 139 mmol/L (137-145); Total Bilirubin 0.5 mg/dL (0.2-1.3); Total Protein 7.2 g/dL (6.3-8.2)
[2017-08-04 20:44] LABS: Creatine Kinase 30 U/L (55-170)
[2017-08-04] MEDS ORDERED: ALBUTEROL NEBULIZED 2.5 MG/3 ML INHALATION STA (20:45)
[2017-08-04] MEDS ORDERED: DOXYCYCLINE 50 MG CAP PO STA (20:45)
[2017-08-04 20:57] LABS: Creatine Kinase MB 0.5 ng/mL (0.0-2.4); Troponin I <0.012 ng/mL (0.000-0.034)
[2017-08-04] MEDS ORDERED: IPRATROPIUM-ALBUTEROL 3 ML NEB INHALATION STA (21:27)
[2017-08-04 21:48] LABS: Anisocytosis Slight; HCT 28.3 % (39.0-53.0); Hypochromasia Moderate; MCH 32.5 pg (25.0-35.0); MCHC 31.8 g/dL (31.0-37.0); MCV 102.4 fL (80.0-100.0); Macrocytosis Moderate; Mean Platelet Volume 8.5; Platelet Count 253 k/uL (150-450); Poikilocytosis Slight; RBC 2.77 m/uL (4.30-5.90); RDW 19.3 % (11.5-15.5); WBC 5.4 k/uL (3.8-10.6)
[2017-08-04 22:50] VITALS: BP 137/63; PULSE 86; RESP 18; TEMP 97
== END 2017-08-04 22:49 | disposition home or self-care (01) ==
LOC: EC 19:56
DX: J40 Bronchitis, not specified as acute or chronic (principal); D64.9 Anemia, unspecified; J44.9 Chronic obstructive pulmonary disease, unspecified; J96.11 Chronic respiratory failure with hypoxia; M19.90 Unspecified osteoarthritis, unspecified site; F17.200 Nicotine dependence, unspecified, uncomplicated; Z79.51 Long term (current) use of inhaled steroids; Z79.52 Long term (current) use of systemic steroids; Z79.899 Other long term (current) drug therapy; Z87.01 Personal history of pneumonia (recurrent); Z98.890 Other specified postprocedural states; Z99.81 Dependence on supplemental oxygen; Z80.1 Family history of malignant neoplasm of trachea, bronchus and lung
CPT/HCPCS: 36415; 71045; 80053; 82550; 82553; 83880; 84484; 85025; 85027; 85610; 85730; 93005; 94640; 99285

== ENCOUNTER 2017-08-07 16:05 | Inpatient (IN) | payer MEDICARE ==
[2017-08-07] MEDS ORDERED: SODIUM CHLORIDE 0.9% 1,000 ML IV ONE (17:10)
[2017-08-07] MEDS ORDERED: IPRATROPIUM-ALBUTEROL 3 ML NEB INHALATION STA (17:10)
--- NOTE | 2017-08-07 17:13 | ED ---
General Adult HPI - General Chief complaint: Recheck/Abnormal Lab/Rx Stated complaint: Dr French sent Time Seen by Provider: 08/07/17 16:55 Source: patient, RN notes reviewed, old records reviewed Mode of arrival: wheelchair Limitations: no limitations - History of Present Illness Initial comments: The patient is a 51-year-old male presents emergency department today chief complaint of worsening shortness of breath and weakness. Patient reports that he is unable to walk from his chair to the bathroom without becoming very short of breath. He went to his primary care doctor's earlier today and they checked his hemoglobin and said it was 7.2. They sent him here for further evaluation and blood transfusion. Patient states that he has history of mild dysplastic syndrome. He states that he also was seen in the emergency department 2 days ago treated for bronchitis with doxycycline. He hasn't taken antibiotics for one day. Patient relates that he uses breathing treatments regularly to do COPD. Last treatment was at noon. He follows up with Dr. French. reports that he cannot walk from his chair to the bathroom without becoming severely short of breath. - Related Data Home Medications Medication Instructions Recorded Confirmed Fluticasone/Salmeterol [Advair 1 puff INHALATION RT-BID 10/09/16 08/07/17 250-50 Diskus] Tiotropium 18 Mcg/Puff [Spiriva] 1 cap INHALATION RT-DAILY 10/09/16 08/07/17 Montelukast [Singulair] 10 mg PO HS 01/05/17 08/07/17 Multivit-Min/FA/Lycopen/Lutein 1 tab PO DAILY 01/27/17 08/07/17 [Centrum Silver Men Tablet] Azithromycin [Zithromax] 250 mg PO MOWEFR 07/16/17 08/07/17 predniSONE 10 mg PO DAILY 08/04/17 08/07/17 Previous Rx's Medication Instructions Recorded Aspirin EC [Ecotrin Low Dose] 81 mg PO DAILY #30 tablet. 05/30/17 Atorvastatin [Lipitor] 20 mg PO HS #30 tab 05/30/17 Ipratropium-Albuterol Nebulize 3 ml INHALATION RT-QID #0 07/22/17 [Duoneb 0.5 mg-3 mg/3 ml Soln] fentaNYL 25MCG/HR PATCH [Duragesic 1 patch TRANSDERM Q72H #5 patch 07/24/17 25MCG/HR] oxyCODONE HCL/ACETAMINOPHEN 1 tab PO Q6HR PRN #8 tab 07/24/17 [Percocet 10-325 mg] Doxycycline Hyclate 100 mg PO BID #14 tab 08/04/17 Allergies Allergy/AdvReac Type Severity Reaction Status Date / Time No Known Allergies Allergy Verified 08/07/17 16:55 Review of Systems ROS Statement: Those systems with pertinent positive or pertinent negative responses have been documented in the HPI. ROS Other: All systems not noted in ROS Statement are negative. Past Medical History Past Medical History: Cancer, COPD, Liver Disease, Memory Impairment, Pneumonia , Prostate Disorder Additional Past Medical History / Comment(s): admitted to [facility] on 05/22/17 with tracheobronchitis. Other hx: Myelodysplastic syndrome pt states diagnosed January [address] French, macrocytic anemia, weekly epogen injections, chronic hypoxic respiratory failure, home O2 at 2L/NC ATC, abdominal aortic aneurysm, bilateral spontaneous pneumothorax (left once and right twice) with chest tubes and pleurodesis, degenerative arthritis, BPH. History of Any Multi-Drug Resistant Organisms: None Reported Additional Past Surgical History / Comment(s): Bilateral pleurodesis, BMA Past Anesthesia/Blood Transfusion Reactions: No Reported Reaction Additional Past Anesthesia/Blood Transfusion Reaction / Comment(s): pt stated he moved here from [place] a year ago. lives alone in [facility]-no steps. no outside services received. has home 02 /concentrator. no pets. no past service. 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 Past Psychological History: Anxiety, Depression Smoking Status: Current every day smoker Past Alcohol Use History: None Reported Past Drug Use History: None Reported - Past Family History Father History Unknown: Yes Mother Family Medical History: Cancer, Coronary Artery Disease (CAD) Additional Family Medical History / Comment(s): lung cancer, lymphoma. General Exam - General Exam Comments Initial Comments: 51-year-old male. Patient appears very weak and pale. Limitations: no limitations General appearance: alert, in no apparent distress Head exam: Present: atraumatic, normocephalic, normal inspection Eye exam: Present: normal appearance, PERRL, EOMI. Absent: scleral icterus, conjunctival injection, periorbital swelling ENT exam: Present: normal exam, mucous membranes moist Neck exam: Present: normal inspection. Absent: tenderness, meningismus, lymphadenopathy Respiratory exam: Present: wheezes (bilateral wheezing), rhonchi. Absent: normal lung sounds bilaterally, respiratory distress, rales, stridor Cardiovascular Exam: Present: regular rate, normal rhythm, normal heart sounds. Absent: systolic murmur, diastolic murmur, rubs, gallop, clicks Extremities exam: Present: normal inspection, full ROM, normal capillary refill. Absent: tenderness, pedal edema, joint swelling, calf tenderness Back exam: Present: normal inspection Neurological exam: Present: alert, oriented X3, CN II-XII intact Psychiatric exam: Present: normal affect, normal mood Skin exam: Present: warm, dry, intact, normal color. Absent: rash Course Vital Signs 08/07/17 08/07/17 08/07/17 16:28 17:31 17:41 Temperature 98.5 F Pulse Rate 120 H 88 87 Pulse Rate [ Bilateral Air Bag Curer ] Respiratory 18 18 18 Rate Blood Pressure 123/58 O2 Sat by Pulse 97 Oximetry 08/07/17 08/07/17 08/07/17 18:04 18:08 18:58 Temperature Pulse Rate 114 H 107 H Pulse Rate [ 111 H Bilateral Air Bag Curer ] Respiratory 22 18 22 Rate Blood Pressure 118/58 128/66 O2 Sat by Pulse 99 97 Oximetry Medical Decision Making - Medical Decision Making The patient is a 51-year-old male presents emergency department today chief complaint of worsening shortness of breath and weakness. Patient reports that he is unable to walk from his chair to the bathroom without becoming very short of breath. He went to his primary care doctor's earlier today and they checked his hemoglobin and said it was 7.2. They sent him here for further evaluation and blood transfusion. Patient states that he has history of mild dysplastic syndrome. He states that he also was seen in the emergency department 2 days ago treated for bronchitis with doxycycline. was very pale and weak. Lung sounds are coarse with significant wheezing. Given DuoNeb treatment and IV steroids for COPD exacerbation. Chest x-ray was reviewed and shows no pneumonia but there is some chronic changes in the right upper lung. His white blood cell count is decreased from 2 days ago. 3.7. His hemoglobin is 8.0. He is very symptomatic pale and short of breath. His occult is negative. This time I discussed with Dr. Reza. Recommends initiating transfusion. Patient will receive 1 unit per BCs. Also we'll start the patient on Levaquin for COPD exacerbation. Discussed that he'll be admitted at this time. Patient agrees. Dr. Reza discussed this with Dr. Nieves. - Lab Data Result diagrams: 08/07/17 17:35 08/07/17 17:35 Lab Results 08/07/17 08/07/17 08/07/17 Range/Units 17:35 17:35 17:35 WBC 3.7 L (3.8-10.6) k/uL RBC 2.47 L (4.30-5.90) m/uL Hgb 8.0 L (13.0-17.5) gm/dL Hct 25.6 L (39.0-53.0) % MCV 103.6 H (80.0-100.0) fL MCH 32.5 (25.0-35.0) pg MCHC 31.4 (31.0-37.0) g/dL RDW 19.8 H (11.5-15.5) % Plt Count 284 (150-450) k/uL Neutrophils % 64 % Lymphocytes % 24 % Monocytes % 7 % Eosinophils % 1 % Basophils % 1 % Neutrophils # 2.3 (1.3-7.7) k/uL Lymphocytes # 0.9 L (1.0-4.8) k/uL Monocytes # 0.2 (0-1.0) k/uL Eosinophils # 0.0 (0-0.7) k/uL Basophils # 0.0 (0-0.2) k/uL Hypochromasia Moderate Poikilocytosis Slight Anisocytosis Slight Macrocytosis Marked Sodium 141 (137-145) mmol/L Potassium 4.6 (3.5-5.1) mmol/L Chloride 103 (98-107) mmol/L Carbon Dioxide 28 (22-30) mmol/L Anion Gap 10 mmol/L BUN 19 (9-20) mg/dL Creatinine 0.80 (0.66-1.25) mg/dL Est GFR (CKD-EPI)AfAm >90 (>60 ml/min/1.73 sqM) Est GFR (CKD-EPI)NonAf >90 (>60 ml/min/1.73 sqM) Glucose 93 (74-99) mg/dL Plasma Lactic Acid Jeff (0.7-2.0) mmol/L Calcium 9.1 (8.4-10.2) mg/dL Total Bilirubin 0.5 (0.2-1.3) mg/dL AST 24 (17-59) U/L ALT 16 L (21-72) U/L Alkaline Phosphatase 92 (38-126) U/L Troponin I (0.000-0.034) ng/mL Total Protein 7.3 (6.3-8.2) g/dL Albumin 3.4 L (3.5-5.0) g/dL Stool Occult Blood Negative (Negative) Blood Type Blood Type Recheck Antibody Screen Crossmatch Spec Expiration Date 08/07/17 08/07/17 08/07/17 Range/Units 17:35 17:35 17:35 WBC (3.8-10.6) k/uL RBC (4.30-5.90) m/uL Hgb (13.0-17.5) gm/dL Hct (39.0-53.0) % MCV (80.0-100.0) fL MCH (25.0-35.0) pg MCHC (31.0-37.0) g/dL RDW (11.5-15.5) % Plt Count (150-450) k/uL Neutrophils % % Lymphocytes % % Monocytes % % Eosinophils % % Basophils % % Neutrophils # (1.3-7.7) k/uL Lymphocytes # (1.0-4.8) k/uL Monocytes # (0-1.0) k/uL Eosinophils # (0-0.7) k/uL Basophils # (0-0.2) k/uL Hypochromasia Poikilocytosis Anisocytosis Macrocytosis Sodium (137-145) mmol/L Potassium (3.5-5.1) mmol/L Chloride (98-107) mmol/L Carbon Dioxide (22-30) mmol/L Anion Gap mmol/L BUN (9-20) mg/dL Creatinine (0.66-1.25) mg/dL Est GFR (CKD-EPI)AfAm (>60 ml/min/1.73 sqM) Est GFR (CKD-EPI)NonAf (>60 ml/min/1.73 sqM) Glucose (74-99) mg/dL Plasma Lactic Acid Jeff 1.7 (0.7-2.0) mmol/L Calcium (8.4-10.2) mg/dL Total Bilirubin (0.2-1.3) mg/dL AST (17-59) U/L ALT (21-72) U/L Alkaline Phosphatase (38-126) U/L Troponin I <0.012 (0.000-0.034) ng/mL Total Protein (6.3-8.2) g/dL Albumin (3.5-5.0) g/dL Stool Occult Blood (Negative) Blood Type O Negative Blood Type Recheck No Antibody Screen NEGATIVE Crossmatch See Detail Spec Expiration Date 08/10/2017233408/07/17 17:34 EKG shows normal sinus rhythm cannot rule out anterior infarct age undetermined. Ventricular rate of 93 bpm. TN interval 154 ms. QRS duration 82 ms. QT QTc is 328/47 ms. No evidence of ST elevation or T-wave inversion. - Radiology Data Radiology results: report reviewed Chronic apical changes. Diffuse increased lung markings slightly increased from interval. Continue follow-up as recommended. Disposition Clinical Impression: Weakness, Dyspnea, Dehydration, COPD exacerbation, Myelodysplastic syndrome, Symptomatic anemia Disposition: ADMITTED IP TO THIS HOSP Referrals: Yang Corrigan DO [Primary Care Provider] - 1-2 days Time of Disposition: 19:03
[2017-08-07] MEDS: SODIUM CHLORIDE 0.9% 1,000 ML IV SCH (17:59)
[2017-08-07 18:06] LABS: Anisocytosis Slight; Basophils % (A) 1 %; Eosinophils % (A) 1 %; HCT 25.6 % (39.0-53.0); Hypochromasia Moderate; Lymphocytes # (A) 0.9 k/uL (1.0-4.8); Lymphocytes % (A) 24 %; MCH 32.5 pg (25.0-35.0); MCHC 31.4 g/dL (31.0-37.0); MCV 103.6 fL (80.0-100.0); Macrocytosis Marked; Mean Platelet Volume 7.6; Monocytes # (A) 0.2 k/uL (0-1.0); Monocytes % (A) 7 %; Neutrophils # (A) 2.3 k/uL (1.3-7.7); Neutrophils % (A) 64 %; Platelet Count 284 k/uL (150-450); Poikilocytosis Slight; RBC 2.47 m/uL (4.30-5.90); RDW 19.8 % (11.5-15.5); WBC 3.7 k/uL (3.8-10.6)
[2017-08-07 18:16] LABS: ALT 16 U/L (21-72); AST 24 U/L (17-59); Albumin 3.4 g/dL (3.5-5.0); Alkaline Phosphatase 92 U/L (38-126); Anion Gap 10 mmol/L; Blood Urea Nitrogen 19 mg/dL (9-20); Calcium 9.1 mg/dL (8.4-10.2); Carbon Dioxide 28 mmol/L (22-30); Chloride 103 mmol/L (98-107); Glucose 93 mg/dL (74-99); Potassium 4.6 mmol/L (3.5-5.1); Sodium 141 mmol/L (137-145); Total Bilirubin 0.5 mg/dL (0.2-1.3); Total Protein 7.3 g/dL (6.3-8.2)
[2017-08-07] MEDS ORDERED: oxyCODONE-APAP 10-325MG 1 EACH TAB PO STA (18:32)
--- NOTE | 2017-08-07 18:32 | XR ---
EXAMINATION TYPE: XR chest 2V DATE OF EXAM: 08/07/2017 COMPARISON: 08/04/2017 INDICATION: Chest pain pulmonary fibrosis COPD TECHNIQUE: Frontal and lateral views of the chest are obtained. FINDINGS: The heart size is normal. The pulmonary vasculature is normal. Right apical thickening and infiltrate is present. There is diffuse increased lung markings bilateral ly, increasing from prior. Some subcutaneous air appears to be in the right lateral neck base. This i s diminished from 07/24/2017. No pneumothorax is evident. IMPRESSION: 1. Chronic right apical changes. 2. Diffuse increased lung markings slightly increased from interval. Continued follow-up is recommend ed.
[2017-08-07] MEDS ORDERED: methylPREDNISolone SOD SUCCI 125 MG/2 ML VIAL IV STA (18:50)
[2017-08-07] MEDS ORDERED: IPRATROPIUM-ALBUTEROL 3 ML NEB INHALATION PRN (18:50)
[2017-08-07] MEDS ORDERED: MORPHINE ORAL SOLN 10 MG/5 ML CUP PO PRN (19:03)
[2017-08-07] MEDS ORDERED: ONDANSETRON 4 MG/2 ML VIAL IVP PRN (19:03)
[2017-08-07] MEDS ORDERED: LORazepam 2 MG/ML INJ IV PRN (19:03)
[2017-08-07] MEDS ORDERED: IBUPROFEN 400 MG TAB PO PRN (19:03)
[2017-08-07] MEDS ORDERED: HYDROcodone/APAP 5-325MG 1 EACH TAB PO PRN (19:03)
[2017-08-07] MEDS ORDERED: ACETAMINOPHEN TAB 325 MG TAB PO PRN (19:03)
[2017-08-07] MEDS ORDERED: NALOXONE 0.4 MG/ML 1 ML VIAL IV PRN (19:03)
[2017-08-07] MEDS ORDERED: LEVOFLOXACIN 750MG-D5W PMX 750 MG in DEXTROSE/WATER 1 150ML.BAG IVPB STA (19:07)
[2017-08-07 19:14] LABS: Appearance,Urine Clear (Clear); Bacteria,Urine Rare /hpf; Bilirubin,Urine Negative (Negative); Blood,Urine Moderate (Negative); Color,Urine Yellow; Glucose,Urine (UA) Trace (Negative); Ketones,Urine Negative (Negative); Leukocyte Esterase,Urine Negative (Negative); Mucus,Urine Few /hpf; Nitrite,Urine Negative (Negative); PH, Urine 5.5 (5.0-8.0); Protein,Urine Trace (Negative); RBC,Urine 8 /hpf (0-5); Specific Gravity,Urine 1.024 (1.001-1.035); Urobilinogen,Urine <2.0 mg/dL (<2.0)
[2017-08-07] MEDS: SYMBICORT 80-4.5 MCG INHALER INHALATION SCH ×2 (20:08→20:27)
[2017-08-07] MEDS ORDERED: MONTELUKAST 10 MG TAB PO SCH (21:00)
[2017-08-07] MEDS ORDERED: ATORVASTATIN 20 MG TAB PO SCH (21:00)
[2017-08-07] MEDS: methylPREDNISolone SOD SUCCI 125 MG/2 ML VIAL IV SCH (23:56)
--- NOTE | 2017-08-08 00:14 | P.HPIM ---
History of Present Illness H&P Date: 08/07/17 Chief Complaint: Shortness of breath Patient is a 51-year-old male with known history of COPD, fibromyalgia and myelodysplastic syndrome and other multiple medical problems came to ER with complaints of worsening shortness of breath and weakness. Patient reports that he is unable to walk from his chair to the bathroom without becoming very short of breath. He went to his primary care doctor's earlier today and they checked his hemoglobin and said it was 7.2. They sent him here for further evaluation and blood transfusion. He states that he also was seen in the emergency department 2 days ago treated for bronchitis with doxycycline. He hasn't taken antibiotics for one day. Patient relates that he uses breathing treatments regularly U do COPD. Last treatment was at noon. He follows up with Dr. French. Patient reports that he cannot walk from his chair to the bathroom without becoming severely short of breath. Chest x-ray showed chronic right apical changes. Diffuse increased lung markings slightly increased from interval. Hemoglobin 8.0 Review of Systems Constitutional: Patient denies any fever or chills . No generalized weakness or weight loss. Abdomen: Patient denied nausea vomiting and diarrhea and abdominal pain. Cardiovascular: Patient denies any chest pain or short of breath no palpitations. Respiratory: Cough without sputum production. Shortness of breath. Neurologic: Patient denied any numbness or tingling headache. Musculoskeletal: Patient denies any complaints of joint swelling or deformity. Skin: Negative Psychiatric: Negative Endocrine: No heat or cold intolerance. No recent weight gain. Genitourinary: No dysuria or hematuria. All other 14 point ROS negative except the above Past Medical History Past Medical History: Cancer, COPD, Liver Disease, Memory Impairment, Pneumonia , Prostate Disorder Additional Past Medical History / Comment(s): admitted to [facility] on 05/22/17 with tracheobronchitis. Other hx: Myelodysplastic syndrome pt states diagnosed January [address] French, macrocytic anemia, weekly epogen injections, chronic hypoxic respiratory failure, home O2 at 2L/NC ATC, abdominal aortic aneurysm, bilateral spontaneous pneumothorax (left once and right twice) with chest tubes and pleurodesis, degenerative arthritis, BPH. History of Any Multi-Drug Resistant Organisms: None Reported Additional Past Surgical History / Comment(s): Bilateral pleurodesis, BMA Past Anesthesia/Blood Transfusion Reactions: No Reported Reaction Additional Past Anesthesia/Blood Transfusion Reaction / Comment(s): pt stated he moved here from [place] a year ago. lives alone in apt-no steps. no outside services received. has home 02 /concentrator. no pets. no past service. 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 Past Psychological History: Anxiety, Depression Smoking Status: Current every day smoker Past Alcohol Use History: None Reported Past Drug Use History: None Reported - Past Family History Father History Unknown: Yes Mother Family Medical History: Cancer, Coronary Artery Disease (CAD) Additional Family Medical History / Comment(s): lung cancer, lymphoma. Medications and Allergies Home Medications Medication Instructions Recorded Confirmed Type Fluticasone/Salmeterol [Advair 1 puff INHALATION RT-BID 10/09/16 08/07/17 History 250-50 Diskus] Tiotropium 18 Mcg/Puff [Spiriva] 1 cap INHALATION RT-DAILY 10/09/16 08/07/17 History Montelukast [Singulair] 10 mg PO HS 01/05/17 08/07/17 History Multivit-Min/FA/Lycopen/Lutein 1 tab PO DAILY 01/27/17 08/07/17 History [Centrum Silver Men Tablet] Aspirin EC [Ecotrin Low Dose] 81 mg PO DAILY #30 tablet. 05/30/17 08/07/17 Rx Atorvastatin [Lipitor] 20 mg PO HS #30 tab 05/30/17 08/07/17 Rx Azithromycin [Zithromax] 250 mg PO MOWEFR 07/16/17 08/07/17 History Ipratropium-Albuterol Nebulize 3 ml INHALATION RT-QID #0 07/22/17 08/07/17 Rx [Duoneb 0.5 mg-3 mg/3 ml Soln] fentaNYL 25MCG/HR PATCH [Duragesic 1 patch TRANSDERM Q72H #5 patch 07/24/1709/19 Rx 25MCG/HR] oxyCODONE HCL/ACETAMINOPHEN 1 tab PO Q6HR PRN #8 tab 07/24/17 08/07/17 Rx [Percocet 10-325 mg] Doxycycline Hyclate 100 mg PO BID #14 tab 08/04/17 08/07/17 Rx predniSONE 10 mg PO DAILY 08/04/17 08/07/17 History Allergies Allergy/AdvReac Type Severity Reaction Status Date / Time No Known Allergies Allergy Verified 08/07/17 16:55 Physical Exam Vitals: Vital Signs Temp Pulse Pulse Resp BP Pulse Ox 08/07/17 20:36 90 18 08/07/17 20:27 91 18 08/07/17 20:05 98.0 F 100 22 122/60 98 08/07/17 18:58 107 H 22 128/66 97 08/07/17 18:08 114 H 18 118/58 99 08/07/17 18:04 111 H 22 08/07/17 17:41 87 18 08/07/17 17:31 88 18 08/07/17 16:28 98.5 F 120 H 18 123/58 97 Intake and Output 08/07/17 08/07/17 08/07/17 06:59 14:59 22:59 Other: Weight 60.328 kg PHYSICAL EXAMINATION: Patient is lying in the bed comfortably, no acute distress, awake alert and oriented. Anxious. HEENT: Normocephalic. Neck is supple. Pupils reactive. Nostrils clear. Oral cavity is moist. Ears reveal no drainage. Neck reveals no JVD, carotid bruits, or thyromegaly. CHEST EXAMINATION: Trachea is central. Symmetrical expansion. Bilateral diffuse wheezing and rhonchi. CARDIAC: Normal S1, S2 with no gallops. No murmurs ABDOMEN: Soft. Bowel sounds normal. No organomegaly. No abdominal bruits. Extremities: Trace edema. No clubbing or cyanosis Neurologically awake, alert, oriented x3 with well-coordinated movements. No focal deficits noted Skin: No rash or skin lesions. Psychiatric: Coperative. Nonsuicidal Musculoskeletal: No joint swelling or deformity. Normal range of motion. Results CBC & Chem 7: 08/07/17 17:35 08/07/17 17:35 Labs: Abnormal Lab Results - Last 24 Hours (Table) 08/07/17 08/07/17 08/07/17 Range/Units 17:35 17:35 17:35 WBC 3.7 L (3.8-10.6) k/uL RBC 2.47 L (4.30-5.90) m/uL Hgb 8.0 L (13.0-17.5) gm/dL Hct 25.6 L (39.0-53.0) % MCV 103.6 H (80.0-100.0) fL RDW 19.8 H (11.5-15.5) % Lymphocytes # 0.9 L (1.0-4.8) k/uL ALT 16 L (21-72) U/L Albumin 3.4 L (3.5-5.0) g/dL Urine Protein (Negative) Urine Glucose (UA) (Negative) Urine Blood (Negative) Urine RBC (0-5) /hpf Urine Bacteria (None) /hpf Urine Mucus (None) /hpf Crossmatch See Detail 08/07/17 Range/Units 18:46 WBC (3.8-10.6) k/uL RBC (4.30-5.90) m/uL Hgb (13.0-17.5) gm/dL Hct (39.0-53.0) % MCV (80.0-100.0) fL RDW (11.5-15.5) % Lymphocytes # (1.0-4.8) k/uL ALT (21-72) U/L Albumin (3.5-5.0) g/dL Urine Protein Trace H (Negative) Urine Glucose (UA) Trace H (Negative) Urine Blood Moderate H (Negative) Urine RBC 8 H (0-5) /hpf Urine Bacteria Rare H (None) /hpf Urine Mucus Few H (None) /hpf Crossmatch Thrombosis Risk Factor Assmnt - DVT/VTE Prophylaxis DVT/VTE Prophylaxis: Pharmacologic Prophylaxis ordered Assessment and Plan Assessment: Acute COPD exacerbation Symptomatic anemia with hemoglobin level VIII.0 Myelodysplastic syndrome. With weekly epogen injections Fibromyalgia Macrocytic anemia Chronic hypoxic to failure on home oxygen Abdominal aortic aneurysm History of bilateral spontaneous pneumothorax with chest tubes and pleurodesis Degenerative joint disease BPH Anxiety and depression Memory impairment Currently everyday smoker DVT prophylaxis Plan: Patient will be continued on DuoNeb's and IV steroids. Continue with home medications and pain management. Hemoglobin is 8.0. Patient says that his hemoglobin was 7.2 couple days back at PCPs office. We'll continue to monitor his H&H and transfuse as needed. Further recommendations based on the clinical course. Smoking cessation has been counseled extensively. Time with Patient: Greater than 30
[2017-08-08] MEDS: oxyCODONE-APAP 10-325MG 1 EACH TAB PO PRN ×2 (01:03→09:24)
[2017-08-08] MEDS: HEPARIN SODIUM,PORCINE 5,000 UNIT/ML 1 ML VIAL SQ SCH ×2 (01:03→09:24)
[2017-08-08 03:58] VITALS: BMI 18.0
[2017-08-08] MEDS: SODIUM CHLORIDE 0.9% 1,000 ML IV SCH (05:13)
[2017-08-08] MEDS: methylPREDNISolone SOD SUCCI 125 MG/2 ML VIAL IV SCH ×2 (05:14→12:49)
[2017-08-08 08:23] VITALS: BP 109/58; TEMP 97.6
[2017-08-08] MEDS: IPRATROPIUM 0.5 MG/2.5 ML NEBU INHALATION SCH ×2 (08:41→11:59)
[2017-08-08] MEDS: SYMBICORT 80-4.5 MCG INHALER INHALATION SCH (08:41)
[2017-08-08 08:49] LABS: Glucose,Whole Blood 157 mg/dL (75-99)
[2017-08-08] MEDS ORDERED: ASPIRIN 81 MG PO SCH (09:00)
[2017-08-08] MEDS ORDERED: PANTOPRAZOLE 40 MG/10 ML VIAL IV SCH (09:00)
[2017-08-08 09:43] VITALS: RESP 18
[2017-08-08 11:52] LABS: Glucose,Whole Blood 94 mg/dL (75-99)
--- NOTE | 2017-08-08 11:54 | P.DS ---
Providers Date of admission: 08/07/17 19:48 Attending physician: Dick Nieves Consults: 08/07/17 19:03 Consult Physician Stat Consulting Provider: Jamey French Consult Reason/Comments: Symptomatic anemia, myelodysplastic syndrome Do you want consulting provider notified?: Yes Primary care physician: Yang [facility] Course: 51-year-old gentleman with history of COPD , Myelodysplastic syndrome admitted for C. diff exacerbation patient was pretty status is at his baseline patient still smokes extensive counseling was provided patient is high risk for readmission because of his continued smoking and the patient will follow with Dr. Dawson for minor dysplastic syndrome apparently received 1 unit of blood transfusion and do not believe he needs repeat hemoglobin today. PHYSICAL EXAMINATION: GENERAL: The patient is alert and oriented x3, not in any acute distress. Well developed, well nourished. HEENT: Pupils are round and equally reacting to light. EOMI. No scleral icterus. No conjunctival pallor. Normocephalic, atraumatic. No pharyngeal erythema. No thyromegaly. CARDIOVASCULAR: S1 and S2 present. No murmurs, rubs, or gallops. PULMONARY: Good air entry into bilateral lung levine rhonchus breath sounds. ABDOMEN: Soft, nontender, nondistended, normoactive bowel sounds. No palpable organomegaly. MUSCULOSKELETAL: No joint swelling or deformity. EXTREMITIES: No cyanosis, clubbing, or pedal edema. NEUROLOGICAL: Gross neurological examination did not reveal any focal deficits. SKIN: No rashes. Acute COPD exacerbation Symptomatic anemia with hemoglobin level VIII.0 Myelodysplastic syndrome. With weekly epogen injections Fibromyalgia Macrocytic anemia Chronic hypoxic to failure on home oxygen 2 L Abdominal aortic aneurysm History of bilateral spontaneous pneumothorax with chest tubes and pleurodesis Degenerative joint disease BPH Anxiety and depression Memory impairment Currently everyday smoker DVT prophylaxis Plan - Discharge Summary New Discharge Prescriptions: New Levofloxacin [Levaquin] 500 mg PO DAILY #7 tab predniSONE 10 mg PO DAILY #30 tab Discontinued Azithromycin [Zithromax] 250 mg PO MOWEFR predniSONE 10 mg PO DAILY Doxycycline Hyclate 100 mg PO BID #14 tab No Action Tiotropium 18 Mcg/Puff [Spiriva] 1 cap INHALATION RT-DAILY Fluticasone/Salmeterol [Advair 250-50 Diskus] 1 puff INHALATION RT-BID Montelukast [Singulair] 10 mg PO HS Multivit-Min/FA/Lycopen/Lutein [Centrum Silver Men Tablet] 1 tab PO DAILY Aspirin EC [Ecotrin Low Dose] 81 mg PO DAILY #30 tablet. Atorvastatin [Lipitor] 20 mg PO HS #30 tab Ipratropium-Albuterol Nebulize [Duoneb 0.5 mg-3 mg/3 ml Soln] 3 ml INHALATION RT-QID #0 fentaNYL 25MCG/HR PATCH [Duragesic 25MCG/HR] 1 patch TRANSDERM Q72H #5 patch oxyCODONE HCL/ACETAMINOPHEN [Percocet 10-325 mg] 1 tab PO Q6HR PRN #8 tab PRN Reason: Pain Discharge Medication List Fluticasone/Salmeterol [Advair 250-50 Diskus] 1 puff INHALATION RT-BID 10/09/16 [History] Tiotropium 18 Mcg/Puff [Spiriva] 1 cap INHALATION RT-DAILY 10/09/16 [History] Montelukast [Singulair] 10 mg PO HS 01/05/17 [History] Multivit-Min/FA/Lycopen/Lutein [Centrum Silver Men Tablet] 1 tab PO DAILY [History] Aspirin EC [Ecotrin Low Dose] 81 mg PO DAILY #30 tablet. 05/30/17 [Rx] Atorvastatin [Lipitor] 20 mg PO HS #30 tab 05/30/17 [Rx] Ipratropium-Albuterol Nebulize [Duoneb 0.5 mg-3 mg/3 ml Soln] 3 ml INHALATION RT -QID #0 07/22/17 [Rx] fentaNYL 25MCG/HR PATCH [Duragesic 25MCG/HR] 1 patch TRANSDERM Q72H #5 patch [Rx] oxyCODONE HCL/ACETAMINOPHEN [Percocet 10-325 mg] 1 tab PO Q6HR PRN #8 tab [Rx] Levofloxacin [Levaquin] 500 mg PO DAILY #7 tab 08/08/17 [Rx] predniSONE 10 mg PO DAILY #30 tab 08/08/17 [Rx] Follow up Appointment(s)/Referral(s): Yang Corrigan DO [Primary Care Provider] - 04/12/18 2:00 pm Patient Instructions/Handouts: Prednisone (By mouth), Levofloxacin (By mouth), COPD (Chronic Obstructive Pulmonary Disease) (DC), Anemia (DC) Discharge Disposition: HOME SELF-CARE
[2017-08-08] MEDS ORDERED: MULTIVITAMINS, THERA 1 EACH TAB PO SCH (12:00)
[2017-08-08 12:14] VITALS: PULSE 90
--- NOTE | 2017-08-08 13:23 | P.CONS ---
History of Present Illness - Reason for Consult Consult date: 08/08/17 MDS Requesting physician: Xiomara Allison - Chief Complaint IMER - History of Present Illness Pt admitted for COPD exacerbation, he is on O2 chronically, we have been asked to pt for anemia and MDS. Mr. Burrows is a very peasant male pt of Dr. 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 Pt did not have any other abnormalities other then anemia so pt was treated with procrit, repeat iron studies were then found to be low and he was given parenteral iron last month. He states he is due to be seen next week for reevaluation of iron, possible resumption of procrit with dose adjustment if indicated. Review of Systems 10 point ROS as stated in HPI Past Medical History Past Medical History: Cancer, COPD, Liver Disease, Memory Impairment, Pneumonia , Prostate Disorder Additional Past Medical History / Comment(s): admitted to [facility] on 05/22/17 with tracheobronchitis. Other hx: Myelodysplastic syndrome pt states diagnosed January [address] French, macrocytic anemia, weekly epogen injections, chronic hypoxic respiratory failure, home O2 at 2L/NC ATC, abdominal aortic aneurysm, bilateral spontaneous pneumothorax (left once and right twice) with chest tubes and pleurodesis, degenerative arthritis, BPH. History of Any Multi-Drug Resistant Organisms: None Reported Additional Past Surgical History / Comment(s): Bilateral pleurodesis, BMA Past Anesthesia/Blood Transfusion Reactions: No Reported Reaction Additional Past Anesthesia/Blood Transfusion Reaction / Comm: pt stated he moved here from [place] a year ago. lives alone in [facility]-no steps. no outside services received. has home 02 /concentrator. no pets. no past service. 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 Past Psychological History: Anxiety, Depression Smoking Status: Current every day smoker Past Alcohol Use History: None Reported Past Drug Use History: None Reported - Past Family History Father History Unknown: Yes Mother Family Medical History: Cancer, Coronary Artery Disease (CAD) Additional Family Medical History / Comment(s): lung cancer, lymphoma. Medications and Allergies Home Medications Medication Instructions Recorded Confirmed Type Fluticasone/Salmeterol [Advair 1 puff INHALATION RT-BID 10/09/16 08/07/17 History 250-50 Diskus] Tiotropium 18 Mcg/Puff [Spiriva] 1 cap INHALATION RT-DAILY 10/09/16 08/07/17 History Montelukast [Singulair] 10 mg PO HS 01/05/17 08/07/17 History Multivit-Min/FA/Lycopen/Lutein 1 tab PO DAILY 01/27/17 08/07/17 History [Centrum Silver Men Tablet] Aspirin EC [Ecotrin Low Dose] 81 mg PO DAILY #30 tablet. 05/30/17 08/07/17 Rx Atorvastatin [Lipitor] 20 mg PO HS #30 tab 05/30/17 08/07/17 Rx Ipratropium-Albuterol Nebulize 3 ml INHALATION RT-QID #0 07/22/17 08/07/17 Rx [Duoneb 0.5 mg-3 mg/3 ml Soln] fentaNYL 25MCG/HR PATCH [Duragesic 1 patch TRANSDERM Q72H #5 patch 07/24/1709/19 Rx 25MCG/HR] oxyCODONE HCL/ACETAMINOPHEN 1 tab PO Q6HR PRN #8 tab 07/24/17 08/07/17 Rx [Percocet 10-325 mg] Levofloxacin [Levaquin] 500 mg PO DAILY #7 tab 08/08/17 Rx predniSONE 10 mg PO DAILY #30 tab 08/08/17 Rx Allergies Allergy/AdvReac Type Severity Reaction Status Date / Time No Known Allergies Allergy Verified 08/07/17 16:55 Physical Exam Vitals: Vital Signs Temp Pulse Pulse Pulse Resp BP BP 08/08/17 12:09 90 08/08/17 11:59 88 08/08/17 08:56 90 08/08/17 08:41 90 08/08/17 08:00 18 08/08/17 07:00 97.6 F 82 16 109/58 08/08/17 02:17 97.9 F 83 20 101/68 04/06/18 00:05 102 H 20 08/07/17 23:35 98.1 F 89 20 107/66 08/07/17 23:05 98.1 F 96 20 109/58 08/07/17 22:55 97.6 F 107 H 20 101/64 08/07/17 20:36 90 18 08/07/17 20:27 91 18 08/07/17 20:05 98.0 F 100 22 122/60 08/07/17 18:58 107 H 22 128/66 08/07/17 18:08 114 H 18 118/58 08/07/17 18:04 111 H 22 08/07/17 17:41 87 18 08/07/17 17:31 88 18 08/07/17 16:28 98.5 F 120 H 18 123/58 Pulse Ox 08/08/17 12:09 08/08/17 11:59 08/08/17 08:56 08/08/17 08:41 08/08/17 08:00 08/08/17 07:00 96 08/08/17 02:17 95 08/08/17 00:05 08/07/17 23:35 96 08/07/17 23:05 95 08/07/17 22:55 96 08/07/17 20:36 08/07/17 20:27 08/07/17 20:05 98 08/07/17 18:58 97 08/07/17 18:08 99 08/07/17 18:04 08/07/17 17:41 08/07/17 17:31 08/07/17 16:28 97 Intake and Output 08/07/17 08/08/17 08/08/17 22:59 06:59 14:59 Intake Total 0 1780 Balance 0 1780 Intake: Intake, IV Titration 800 Amount Sodium Chloride 0.9% 1, 800 000 ml @ 100 mls/hr IV . Q10H [facility] Rx#:[id number] Oral 360 Blood Product 0 620 Rc As-1 Unit 0 310 [id number] Other: Voiding Method Toilet Urinal # Voids 2 Weight 60.328 kg 60.328 kg - Constitutional General appearance: cooperative, no acute distress, thin - EENT Eyes: anicteric sclerae, EOMI - Respiratory Respiratory: bilateral: diminished - Cardiovascular Heart sounds: normal: S1, S2 - Integumentary Integumentary: pale - Neurologic Neurologic: CNII-XII intact - Musculoskeletal Musculoskeletal: strength equal bilaterally - Psychiatric Psychiatric: A&O x's 3, appropriate affect, intact judgment & insight Results CBC & Chem 7: 08/07/17 17:35 08/07/17 17:35 Labs: Abnormal Lab Results - Last 24 Hours (Table) 08/07/17 08/07/17 08/07/17 Range/Units 17:35 17:35 17:35 WBC 3.7 L (3.8-10.6) k/uL RBC 2.47 L (4.30-5.90) m/uL Hgb 8.0 L (13.0-17.5) gm/dL Hct 25.6 L (39.0-53.0) % MCV 103.6 H (80.0-100.0) fL RDW 19.8 H (11.5-15.5) % Lymphocytes # 0.9 L (1.0-4.8) k/uL POC Glucose (mg/dL) (75-99) mg/dL ALT 16 L (21-72) U/L Albumin 3.4 L (3.5-5.0) g/dL Urine Protein (Negative) Urine Glucose (UA) (Negative) Urine Blood (Negative) Urine RBC (0-5) /hpf Urine Bacteria (None) /hpf Urine Mucus (None) /hpf Crossmatch See Detail 08/07/17 08/08/17 Range/Units 18:46 08:27 WBC (3.8-10.6) k/uL RBC (4.30-5.90) m/uL Hgb (13.0-17.5) gm/dL Hct (39.0-53.0) % MCV (80.0-100.0) fL RDW (11.5-15.5) % Lymphocytes # (1.0-4.8) k/uL POC Glucose (mg/dL) 157 H (75-99) mg/dL ALT (21-72) U/L Albumin (3.5-5.0) g/dL Urine Protein Trace H (Negative) Urine Glucose (UA) Trace H (Negative) Urine Blood Moderate H (Negative) Urine RBC 8 H (0-5) /hpf Urine Bacteria Rare H (None) /hpf Urine Mucus Few H (None) /hpf Crossmatch Assessment and Plan (1) Myelodysplastic syndrome Narrative/Plan: Pt is not on any treatment for MDS at this time, supportive care only. He is transfused PRN, procrit is going to be resumed with dose adjustment in the outpatient setting. Pt already has follow up appt for next week Current Visit: Yes Status: Chronic Priority: Medium Code(s): D46.9 - MYELODYSPLASTIC SYNDROME, UNSPECIFIED SNOMED Code(s): 029071753 (2) Anemia Narrative/Plan: Pt has been transfused, he is due in office nexdt week for follow up, CBC will be redrawn then and treated as needed. Current Visit: Yes Status: Chronic Priority: High Code(s): D64.9 - ANEMIA , UNSPECIFIED SNOMED Code(s): 366217692 Plan: No acute hematological intervention. Pt will be seen outpatient
== END 2017-08-08 13:52 | disposition home or self-care (01) | DRG 191 ==
LOC: EC 16:05 → 5MS5E 19:48
PROVIDERS: ADMIT Internal Medicine; ATTEND Internal Medicine
PROC: 30233N1 Transfusion of Nonautologous Red Blood Cells into Peripheral Vein, Percutaneous Approach (ICD-10-PCS; principal; 2017-08-07)
DX: J44.1 Chronic obstructive pulmonary disease with (acute) exacerbation (principal); J96.11 Chronic respiratory failure with hypoxia; Z99.81 Dependence on supplemental oxygen; D46.9 Myelodysplastic syndrome, unspecified; E86.0 Dehydration; D53.9 Nutritional anemia, unspecified; F17.200 Nicotine dependence, unspecified, uncomplicated; K76.9 Liver disease, unspecified; I71.4 Abdominal aortic aneurysm, without rupture; M19.91 Primary osteoarthritis, unspecified site; M79.7 Fibromyalgia; N40.0 Benign prostatic hyperplasia without lower urinary tract symptoms; F32.9 Major depressive disorder, single episode, unspecified; F41.9 Anxiety disorder, unspecified; R26.2 Difficulty in walking, not elsewhere classified; Z71.6 Tobacco abuse counseling; Z79.2 Long term (current) use of antibiotics; Z79.82 Long term (current) use of aspirin; Z79.51 Long term (current) use of inhaled steroids; Z79.891 Long term (current) use of opiate analgesic; Z79.52 Long term (current) use of systemic steroids; Z79.899 Other long term (current) drug therapy; Z87.01 Personal history of pneumonia (recurrent); Z82.49 Family history of ischemic heart disease and other diseases of the circulatory system; Z80.1 Family history of malignant neoplasm of trachea, bronchus and lung; Z80.7 Family history of other malignant neoplasms of lymphoid, hematopoietic and related tissues
CPT/HCPCS: 36415; 71045; 71046; 80053; 81001; 82272; 82550; 82553; 83605; 83880; 84484; 85025; 85027; 85610; 85730; 86850; 86900; 86901; 86920; 87040; 93005; 94640; 96361; 96374; 99285

== ENCOUNTER 2017-08-10 11:24 | Inpatient (IN) | payer MEDICARE ==
[2017-08-10] MEDS ORDERED: ACETAMINOPHEN TAB 325 MG TAB PO STA (11:39)
[2017-08-10] MEDS ORDERED: IPRATROPIUM-ALBUTEROL 3 ML NEB INHALATION STA (11:40)
--- NOTE | 2017-08-10 11:43 | ED ---
General Adult HPI - General Chief complaint: Shortness of Breath Stated complaint: Difficulty Breathing Time Seen by Provider: 08/10/17 11:33 Source: patient, family, RN notes reviewed Mode of arrival: wheelchair Limitations: no limitations - History of Present Illness Initial comments: Patient is a pleasant 51-year-old male presenting to the emergency department with difficulty breathing. Patient has known pulmonary fibrosis and COPD and mylodysplasia. Patient was recently discharged. Patient was on doxycycline and switched to Levaquin yesterday. Patient does have cough. Patient has felt hot and cold this morning. Patient was unaware possible fever. Patient has been fatigued. - Related Data Home Medications Medication Instructions Recorded Confirmed Fluticasone/Salmeterol [Advair 1 puff INHALATION RT-BID 10/09/16 08/07/17 250-50 Diskus] Tiotropium 18 Mcg/Puff [Spiriva] 1 cap INHALATION RT-DAILY 10/09/16 08/07/17 Montelukast [Singulair] 10 mg PO HS 01/05/17 08/07/17 Multivit-Min/FA/Lycopen/Lutein 1 tab PO DAILY 01/27/17 08/07/17 [Centrum Silver Men Tablet] Previous Rx's Medication Instructions Recorded Aspirin EC [Ecotrin Low Dose] 81 mg PO DAILY #30 tablet. 05/30/17 Atorvastatin [Lipitor] 20 mg PO HS #30 tab 05/30/17 Ipratropium-Albuterol Nebulize 3 ml INHALATION RT-QID #0 07/22/17 [Duoneb 0.5 mg-3 mg/3 ml Soln] fentaNYL 25MCG/HR PATCH [Duragesic 1 patch TRANSDERM Q72H #5 patch 07/24/17 25MCG/HR] oxyCODONE HCL/ACETAMINOPHEN 1 tab PO Q6HR PRN #8 tab 07/24/17 [Percocet 10-325 mg] Levofloxacin [Levaquin] 500 mg PO DAILY #7 tab 08/08/17 predniSONE 10 mg PO DAILY #30 tab 08/08/17 Allergies Allergy/AdvReac Type Severity Reaction Status Date / Time No Known Allergies Allergy Verified 08/10/17 11:29 Review of Systems ROS Statement: Those systems with pertinent positive or pertinent negative responses have been documented in the HPI. ROS Other: All systems not noted in ROS Statement are negative. Constitutional: Reports: chills Eyes: Denies: eye pain ENT: Denies: ear pain Respiratory: Reports: cough, dyspnea Cardiovascular: Denies: palpitations Endocrine: Reports: fatigue Gastrointestinal: Reports: constipation Genitourinary: Denies: dysuria Musculoskeletal: Denies: arthralgia Skin: Denies: rash Neurological: Denies: headache Past Medical History Past Medical History: Cancer, COPD, Liver Disease, Memory Impairment, Pneumonia , Prostate Disorder Additional Past Medical History / Comment(s): admitted to [facility] on 05/22/17 with tracheobronchitis. Other hx: Myelodysplastic syndrome pt states diagnosed January [address] French, macrocytic anemia, weekly epogen injections, chronic hypoxic respiratory failure, home O2 at 2L/NC ATC, abdominal aortic aneurysm, bilateral spontaneous pneumothorax (left once and right twice) with chest tubes and pleurodesis, degenerative arthritis, BPH. History of Any Multi-Drug Resistant Organisms: None Reported Additional Past Surgical History / Comment(s): Bilateral pleurodesis, BMA Past Anesthesia/Blood Transfusion Reactions: No Reported Reaction Additional Past Anesthesia/Blood Transfusion Reaction / Comment(s): pt stated he moved here from [place] a year ago. lives alone in [facility]-no steps. no outside services received. has home 02 /concentrator. no pets. no past service. 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 Past Psychological History: Anxiety, Depression Smoking Status: Current some day smoker Past Alcohol Use History: None Reported Past Drug Use History: None Reported - Past Family History Father History Unknown: Yes Mother Family Medical History: Cancer, Coronary Artery Disease (CAD) Additional Family Medical History / Comment(s): lung cancer, lymphoma. General Exam Limitations: no limitations General appearance: alert, anxious Head exam: Present: atraumatic Eye exam: Present: normal appearance, PERRL ENT exam: Present: normal oropharynx Neck exam: Present: normal inspection Respiratory exam: Present: wheezes, rales, decreased breath sounds Cardiovascular Exam: Present: tachycardia GI/Abdominal exam: Present: soft. Absent: distended, tenderness Extremities exam: Present: normal inspection. Absent: pedal edema, calf tenderness Neurological exam: Present: alert Psychiatric exam: Present: anxious Skin exam: Present: normal color Course Vital Signs 0408/10/17 08/10/17 11:26 12:41 13:04 Temperature 100.4 F H 98.5 F Pulse Rate 141 H 112 H 88 Respiratory 28 H 26 H 18 Rate Blood Pressure 100/64 97/52 O2 Sat by Pulse 97 95 Oximetry 08/10/17 08/10/17 13:14 13:42 Temperature Pulse Rate 90 107 H Respiratory 18 24 Rate Blood Pressure 94/66 O2 Sat by Pulse 95 Oximetry - Reevaluation(s) Reevaluation #1: 08/10/17 14:11 There is suspected sepsis with fever and dyspnea/COPD. Blood culture and lactic acid have been ordered. IV antibiotics will be ordered. EKG Findings - EKG Comments: EKG Findings:: Sinus tachycardia 125. ID 138. QRS 74. QT 290. QTC 418. Right axis. Normal QRS. No acute ST change. Medical Decision Making - Medical Decision Making Patient reevaluated and is somewhat improved. Patient and family updated on results and plan. Dr. Allison has been paged for admission for Dr. Kay - Lab Data Result diagrams: 08/10/17 11:59 08/10/17 11:59 Lab Results 08/10/17 08/10/17 08/10/17 Range/Units 11:59 11:59 11:59 WBC 5.8 (3.8-10.6) k/uL RBC 2.95 L (4.30-5.90) m/uL Hgb 9.7 L D (13.0-17.5) gm/dL Hct 29.5 L (39.0-53.0) % MCV 100.1 H (80.0-100.0) fL MCH 32.9 (25.0-35.0) pg MCHC 32.8 (31.0-37.0) g/dL RDW 19.6 H (11.5-15.5) % Plt Count 329 (150-450) k/uL Neutrophils % 85 % Lymphocytes % 7 % Monocytes % 6 % Eosinophils % 0 % Basophils % 0 % Neutrophils # 4.9 (1.3-7.7) k/uL Lymphocytes # 0.4 L (1.0-4.8) k/uL Monocytes # 0.3 (0-1.0) k/uL Eosinophils # 0.0 (0-0.7) k/uL Basophils # 0.0 (0-0.2) k/uL Hypochromasia Slight Poikilocytosis Slight Anisocytosis Slight Macrocytosis Moderate PT (9.0-12.0) sec INR (<1.2) APTT (22.0-30.0) sec Sodium 135 L (137-145) mmol/L Potassium 4.0 (3.5-5.1) mmol/L Chloride 97 L (98-107) mmol/L Carbon Dioxide 28 (22-30) mmol/L Anion Gap 10 mmol/L BUN 21 H (9-20) mg/dL Creatinine 0.70 (0.66-1.25) mg/dL Est GFR (CKD-EPI)AfAm >90 (>60 ml/min/1.73 sqM) Est GFR (CKD-EPI)NonAf >90 (>60 ml/min/1.73 sqM) Glucose 117 H (74-99) mg/dL Plasma Lactic Acid Jeff (0.7-2.0) mmol/L Calcium 9.3 (8.4-10.2) mg/dL Total Bilirubin 0.8 (0.2-1.3) mg/dL AST 20 (17-59) U/L ALT 18 L (21-72) U/L Alkaline Phosphatase 89 (38-126) U/L Total Creatine Kinase 26 L (55-170) U/L CK-MB (CK-2) 0.3 (0.0-2.4) ng/mL CK-MB (CK-2) Rel Index 1.2 Troponin I <0.012 (0.000-0.034) ng/mL Total Protein 6.8 (6.3-8.2) g/dL Albumin 3.3 L (3.5-5.0) g/dL Urine Color Urine Appearance (Clear) Urine pH (5.0-8.0) Ur Specific [place] (1.001-1.035) Urine Protein (Negative) Urine Glucose (UA) (Negative) Urine Ketones (Negative) Urine Blood (Negative) Urine Nitrite (Negative) Urine Bilirubin (Negative) Urine Urobilinogen (<2.0) mg/dL Ur Leukocyte Esterase (Negative) Urine RBC (0-5) /hpf Urine WBC (0-5) /hpf Urine Mucus (None) /hpf Influenza Type A RNA (Not Detectd) Influenza Type B (PCR) (Not Detectd) 08/10/17 08/10/17 08/10/17 Range/Units 11:59 11:59 11:59 WBC (3.8-10.6) k/uL RBC (4.30-5.90) m/uL Hgb (13.0-17.5) gm/dL Hct (39.0-53.0) % MCV (80.0-100.0) fL MCH (25.0-35.0) pg MCHC (31.0-37.0) g/dL RDW (11.5-15.5) % Plt Count (150-450) k/uL Neutrophils % % Lymphocytes % % Monocytes % % Eosinophils % % Basophils % % Neutrophils # (1.3-7.7) k/uL Lymphocytes # (1.0-4.8) k/uL Monocytes # (0-1.0) k/uL Eosinophils # (0-0.7) k/uL Basophils # (0-0.2) k/uL Hypochromasia Poikilocytosis Anisocytosis Macrocytosis PT 10.8 (9.0-12.0) sec INR 1.1 (<1.2) APTT 23.9 (22.0-30.0) sec Sodium (137-145) mmol/L Potassium (3.5-5.1) mmol/L Chloride (98-107) mmol/L Carbon Dioxide (22-30) mmol/L Anion Gap mmol/L BUN (9-20) mg/dL Creatinine (0.66-1.25) mg/dL Est GFR (CKD-EPI)AfAm (>60 ml/min/1.73 sqM) Est GFR (CKD-EPI)NonAf (>60 ml/min/1.73 sqM) Glucose (74-99) mg/dL Plasma Lactic Acid Jeff 1.4 (0.7-2.0) mmol/L Calcium (8.4-10.2) mg/dL Total Bilirubin (0.2-1.3) mg/dL AST (17-59) U/L ALT (21-72) U/L Alkaline Phosphatase (38-126) U/L Total Creatine Kinase (55-170) U/L CK-MB (CK-2) (0.0-2.4) ng/mL CK-MB (CK-2) Rel Index Troponin I (0.000-0.034) ng/mL Total Protein (6.3-8.2) g/dL Albumin (3.5-5.0) g/dL Urine Color Urine Appearance (Clear) Urine pH (5.0-8.0) Ur Specific [place] (1.001-1.035) Urine Protein (Negative) Urine Glucose (UA) (Negative) Urine Ketones (Negative) Urine Blood (Negative) Urine Nitrite (Negative) Urine Bilirubin (Negative) Urine Urobilinogen (<2.0) mg/dL Ur Leukocyte Esterase (Negative) Urine RBC (0-5) /hpf Urine WBC (0-5) /hpf Urine Mucus (None) /hpf Influenza Type A RNA Not Detected (Not Detectd) Influenza Type B (PCR) Not Detected (Not Detectd) 08/10/17 Range/Units 13:35 WBC (3.8-10.6) k/uL RBC (4.30-5.90) m/uL Hgb (13.0-17.5) gm/dL Hct (39.0-53.0) % MCV (80.0-100.0) fL MCH (25.0-35.0) pg MCHC (31.0-37.0) g/dL RDW (11.5-15.5) % Plt Count (150-450) k/uL Neutrophils % % Lymphocytes % % Monocytes % % Eosinophils % % Basophils % % Neutrophils # (1.3-7.7) k/uL Lymphocytes # (1.0-4.8) k/uL Monocytes # (0-1.0) k/uL Eosinophils # (0-0.7) k/uL Basophils # (0-0.2) k/uL Hypochromasia Poikilocytosis Anisocytosis Macrocytosis PT (9.0-12.0) sec INR (<1.2) APTT (22.0-30.0) sec Sodium (137-145) mmol/L Potassium (3.5-5.1) mmol/L Chloride (98-107) mmol/L Carbon Dioxide (22-30) mmol/L Anion Gap mmol/L BUN (9-20) mg/dL Creatinine (0.66-1.25) mg/dL Est GFR (CKD-EPI)AfAm (>60 ml/min/1.73 sqM) Est GFR (CKD-EPI)NonAf (>60 ml/min/1.73 sqM) Glucose (74-99) mg/dL Plasma Lactic Acid Jeff (0.7-2.0) mmol/L Calcium (8.4-10.2) mg/dL Total Bilirubin (0.2-1.3) mg/dL AST (17-59) U/L ALT (21-72) U/L Alkaline Phosphatase (38-126) U/L Total Creatine Kinase (55-170) U/L CK-MB (CK-2) (0.0-2.4) ng/mL CK-MB (CK-2) Rel Index Troponin I (0.000-0.034) ng/mL Total Protein (6.3-8.2) g/dL Albumin (3.5-5.0) g/dL Urine Color Yellow Urine Appearance Clear (Clear) Urine pH 5.5 (5.0-8.0) Ur Specific [place] 1.010 (1.001-1.035) Urine Protein Negative (Negative) Urine Glucose (UA) Negative (Negative) Urine Ketones Negative (Negative) Urine Blood Moderate H (Negative) Urine Nitrite Negative (Negative) Urine Bilirubin Negative (Negative) Urine Urobilinogen <2.0 (<2.0) mg/dL Ur Leukocyte Esterase Negative (Negative) Urine RBC 2 (0-5) /hpf Urine WBC <1 (0-5) /hpf Urine Mucus Rare H (None) /hpf Influenza Type A RNA (Not Detectd) Influenza Type B (PCR) (Not Detectd) - Radiology Data Radiology results: image reviewed (X-ray shows COPD and pulmonary fibrosis. No definite acute superimposed abnormality.) Disposition Clinical Impression: Acute exacerbation of chronic obstructive airways disease Narrative: Suspected sepsis Disposition: ADMITTED IP TO THIS HOSP Referrals: Yang Kay DO [Primary Care Provider] - 1-2 days Decision Time: 14:12
[2017-08-10 12:17] LABS: Anisocytosis Slight; Basophils % (A) 0 %; Eosinophils % (A) 0 %; HCT 29.5 % (39.0-53.0); Hypochromasia Slight; Lymphocytes # (A) 0.4 k/uL (1.0-4.8); Lymphocytes % (A) 7 %; MCH 32.9 pg (25.0-35.0); MCHC 32.8 g/dL (31.0-37.0); MCV 100.1 fL (80.0-100.0); Macrocytosis Moderate; Mean Platelet Volume 7.7; Monocytes # (A) 0.3 k/uL (0-1.0); Monocytes % (A) 6 %; Neutrophils # (A) 4.9 k/uL (1.3-7.7); Neutrophils % (A) 85 %; Platelet Count 329 k/uL (150-450); Poikilocytosis Slight; RBC 2.95 m/uL (4.30-5.90); RDW 19.6 % (11.5-15.5); WBC 5.8 k/uL (3.8-10.6)
[2017-08-10 12:19] LABS: HGB 9.7 gm/dL (13.0-17.5)
[2017-08-10 12:21] LABS: ALT 18 U/L (21-72); AST 20 U/L (17-59); Albumin 3.3 g/dL (3.5-5.0); Alkaline Phosphatase 89 U/L (38-126); Anion Gap 10 mmol/L; Blood Urea Nitrogen 21 mg/dL (9-20); Calcium 9.3 mg/dL (8.4-10.2); Carbon Dioxide 28 mmol/L (22-30); Chloride 97 mmol/L (98-107); Glucose 117 mg/dL (74-99); Sodium 135 mmol/L (137-145); Total Bilirubin 0.8 mg/dL (0.2-1.3); Total Protein 6.8 g/dL (6.3-8.2)
--- NOTE | 2017-08-10 12:25 | XR ---
EXAMINATION TYPE: XR chest 2V DATE OF EXAM: 08/10/2017 HISTORY: Fever. REFERENCE: Previous study dated 08/07/2017. FINDINGS: The lungs are overinflated. There is chronic scarring in the right apex. There is diffuse i nterstitial fibrosis. I do not see evidence of superimposed pneumonia or edema. There is a chronic ri ght pleural reaction. Heart size is normal. IMPRESSION: 1. COPD AND PULMONARY FIBROSIS. 2. NO DEFINITE ACUTE SUPERIMPOSED ABNORMALITY.
[2017-08-10 12:34] LABS: Creatine Kinase 26 U/L (55-170)
[2017-08-10 12:47] LABS: Creatine Kinase MB 0.3 ng/mL (0.0-2.4); Troponin I <0.012 ng/mL (0.000-0.034)
[2017-08-10 12:57] LABS: INR 1.1 (<1.2); Partial Thromboplastin Time 23.9 sec (22.0-30.0); Prothrombin Time 10.8 sec (9.0-12.0)
[2017-08-10 13:58] LABS: Appearance,Urine Clear (Clear); Bilirubin,Urine Negative (Negative); Blood,Urine Moderate (Negative); Color,Urine Yellow; Glucose,Urine (UA) Negative (Negative); Ketones,Urine Negative (Negative); Leukocyte Esterase,Urine Negative (Negative); Mucus,Urine Rare /hpf; Nitrite,Urine Negative (Negative); PH, Urine 5.5 (5.0-8.0); Protein,Urine Negative (Negative); RBC,Urine 2 /hpf (0-5); Urobilinogen,Urine <2.0 mg/dL (<2.0); WBC,Urine <1 /hpf (0-5)
[2017-08-10] MEDS ORDERED: IPRATROPIUM-ALBUTEROL 3 ML NEB INHALATION PRN (14:13)
[2017-08-10] MEDS ORDERED: cefTRIAXone IN SWFI 1,000 MG/10 ML SYRINGE IVP STA (14:13)
[2017-08-10] MEDS ORDERED: methylPREDNISolone SOD SUCCI 125 MG/2 ML VIAL IV SCH (14:15)
[2017-08-10] MEDS: SODIUM CHLORIDE 0.9% 1,000 ML IV SCH ×2 (14:53→23:38)
[2017-08-10] MEDS: IPRATROPIUM-ALBUTEROL 3 ML NEB INHALATION SCH ×2 (15:37→20:49)
[2017-08-10 16:43] VITALS: BMI 17.6
--- NOTE | 2017-08-10 17:09 | P.HPIM ---
History of Present Illness 51-year-old the gentleman with history of myelodysplastic syndrome was discharged from my service about couple days ago went home smoked again, started having shortness of breath came to the hospital patient apparently had low-grade fever as well patient was discharged on levofloxacin weaning dose of steroids patient was given a dose of steroids now his wheezing completely resolved patient has good fairly good air entry into bilateral lung levine patient was started on Rocephin is treated for levofloxacin which will be continued patient was switched to oral steroids will be discharged tomorrow patient does not require any transfusion. Patient says he's been fatigued and tired of being admitted multiple times to the hospital although continues to smoke in spite of extensive counseling and patient does understand that smoking is affecting adversely. Review of Systems REVIEW OF SYSTEMS: CONSTITUTIONAL: No fever, no malaise, no fatigue. HEENT: No recent visual problems or hearing problems. Denied any sore throat. CARDIOVASCULAR: No chest pain, orthopnea, PND, no palpitations, no syncope. PULMONARY: As mentioned in HPI GASTROINTESTINAL: No diarrhea, no nausea, no vomiting, no abdominal pain. Normoactive bowel sounds. NEUROLOGICAL: No headaches, no weakness, no numbness. HEMATOLOGICAL: Denies any bleeding or petechiae. GENITOURINARY: Denies any burning micturition, frequency, or urgency. MUSCULOSKELETAL/RHEUMATOLOGICAL: Denies any joint pain, swelling, or any muscle pain. ENDOCRINE: Denies any polyuria or polydipsia. The rest of the 14-point review of systems is negative. Past Medical History Past Medical History: Cancer, COPD, Liver Disease, Memory Impairment, Pneumonia , Prostate Disorder Additional Past Medical History / Comment(s): admitted to [facility] on 05/22/17 with tracheobronchitis. Other hx: Myelodysplastic syndrome pt states diagnosed January [address] French, macrocytic anemia, weekly epogen injections, chronic hypoxic respiratory failure, home O2 at 2L/NC ATC, abdominal aortic aneurysm, bilateral spontaneous pneumothorax (left once and right twice) with chest tubes and pleurodesis, degenerative arthritis, BPH. History of Any Multi-Drug Resistant Organisms: None Reported Additional Past Surgical History / Comment(s): Bilateral pleurodesis, BMA Past Anesthesia/Blood Transfusion Reactions: No Reported Reaction Additional Past Anesthesia/Blood Transfusion Reaction / Comment(s): pt stated he moved here from [place] a year ago. lives alone in apt-no steps. no outside services received. has home 02 /concentrator. no pets. no past service. 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 Past Psychological History: Anxiety, Depression Additional Psychological History / Comment(s): Pt moved from [place] about a year ago. He lives alone in an apartment with no steps. He has [facility] nurse coming to give him his Epigen injections. He has home O2/concentrator, tank. No pets. No experience. No international travel. No animal exposures. Is not and has no children Smoking Status: Current every day smoker Past Alcohol Use History: None Reported Additional Past Alcohol Use History / Comment(s): Pt started smoking in 1979 Past Drug Use History: None Reported - Past Family History Father History Unknown: Yes Mother Family Medical History: Cancer, Coronary Artery Disease (CAD) Additional Family Medical History / Comment(s): lung cancer, lymphoma. Medications and Allergies Home Medications Medication Instructions Recorded Confirmed Type Fluticasone/Salmeterol [Advair 1 puff INHALATION RT-BID 10/09/16 08/10/17 History 250-50 Diskus] Tiotropium 18 Mcg/Puff [Spiriva] 1 cap INHALATION RT-DAILY 10/09/16 08/10/17 History Montelukast [Singulair] 10 mg PO HS 01/05/17 08/10/17 History Multivit-Min/FA/Lycopen/Lutein 1 tab PO DAILY 01/27/17 08/10/17 History [Centrum Silver Men Tablet] Aspirin EC [Ecotrin Low Dose] 81 mg PO DAILY #30 tablet. 05/30/17 08/10/17 Rx Atorvastatin [Lipitor] 20 mg PO HS #30 tab 05/30/17 08/10/17 Rx Ipratropium-Albuterol Nebulize 3 ml INHALATION RT-QID #0 07/22/17 08/10/17 Rx [Duoneb 0.5 mg-3 mg/3 ml Soln] fentaNYL 25MCG/HR PATCH [Duragesic 1 patch TRANSDERM Q72H #5 patch 07/24/1712/20 Rx 25MCG/HR] oxyCODONE HCL/ACETAMINOPHEN 1 tab PO Q6HR PRN #8 tab 07/24/17 08/10/17 Rx [Percocet 10-325 mg] Levofloxacin [Levaquin] 500 mg PO DAILY #7 tab 08/08/17 08/10/17 Rx Epoetin Joe [Procrit] 20,000 unit SQ Q7D 08/10/17 08/10/17 History predniSONE See Taper PO DAILY 08/10/17 08/10/17 History Allergies Allergy/AdvReac Type Severity Reaction Status Date / Time No Known Allergies Allergy Verified 08/10/17 14:32 Physical Exam Vitals: Vital Signs Temp Pulse Resp BP Pulse Ox 08/10/17 15:48 90 18 08/10/17 15:39 88 18 08/10/17 14:49 98.3 F 111 H 24 98/54 94 L 08/10/17 13:42 107 H 24 94/66 95 08/10/17 13:14 90 18 08/10/17 13:04 88 18 08/10/17 12:41 98.5 F 112 H 26 H 97/52 95 08/10/17 11:26 100.4 F H 141 H 28 H 100/64 97 Intake and Output 08/10/17 08/10/17 08/10/17 06:59 14:59 22:59 Other: # Bowel Movements 1 Weight 59 kg 59 kg PHYSICAL EXAMINATION: GENERAL: The patient is alert and oriented x3, not in any acute distress. Well developed, well nourished. HEENT: Pupils are round and equally reacting to light. EOMI. No scleral icterus. No conjunctival pallor. Normocephalic, atraumatic. No pharyngeal erythema. No thyromegaly. CARDIOVASCULAR: S1 and S2 present. No murmurs, rubs, or gallops. PULMONARY: Mildly diminished air entry into bilateral lung levine no wheezing was appreciated no crackles were appreciated ABDOMEN: Soft, nontender, nondistended, normoactive bowel sounds. No palpable organomegaly. MUSCULOSKELETAL: No joint swelling or deformity. EXTREMITIES: No cyanosis, clubbing, or pedal edema. NEUROLOGICAL: Gross neurological examination did not reveal any focal deficits. SKIN: No rashes. Results CBC & Chem 7: 08/10/17 11:59 08/10/17 11:59 Labs: Abnormal Lab Results - Last 24 Hours (Table) 08/10/17 08/10/1718 Range/Units 11:59 11:59 11:59 RBC 2.95 L (4.30-5.90) m/uL Hgb 9.7 L D (13.0-17.5) gm/dL Hct 29.5 L (39.0-53.0) % MCV 100.1 H (80.0-100.0) fL RDW 19.6 H (11.5-15.5) % Lymphocytes # 0.4 L (1.0-4.8) k/uL Sodium 135 L (137-145) mmol/L Chloride 97 L (98-107) mmol/L BUN 21 H (9-20) mg/dL Glucose 117 H (74-99) mg/dL ALT 18 L (21-72) U/L Total Creatine Kinase 26 L (55-170) U/L Albumin 3.3 L (3.5-5.0) g/dL Urine Blood (Negative) Urine Mucus (None) /hpf 08/10/17 Range/Units 13:35 RBC (4.30-5.90) m/uL Hgb (13.0-17.5) gm/dL Hct (39.0-53.0) % MCV (80.0-100.0) fL RDW (11.5-15.5) % Lymphocytes # (1.0-4.8) k/uL Sodium (137-145) mmol/L Chloride (98-107) mmol/L BUN (9-20) mg/dL Glucose (74-99) mg/dL ALT (21-72) U/L Total Creatine Kinase (55-170) U/L Albumin (3.5-5.0) g/dL Urine Blood Moderate H (Negative) Urine Mucus Rare H (None) /hpf Microbiology - Last 24 Hours (Table) 08/10/17 13:35 Urine Culture - Preliminary Urine,Voided Thrombosis Risk Factor Assmnt - Choose All That Apply Any of the Below Risk Factors Present?: Yes Each Factor Represents 1 point: Abnormal pulmonary function (COPD), Age 41-60 years Thrombosis Risk Factor Assessment Total Risk Factor Score: 2 Thrombosis Risk Factor Assessment Level: Low Risk Assessment and Plan Plan: Acute on chronic hypercapnic respiratory failure: Secondary to COPD exacerbation patient is already feeling better patient will be switched to oral steroids. Patient uses 2 L of onset at home. Patient probably can be discharged on oral steroids tomorrow night. -Fever leukocytosis probably due to tracheobronchitis no evidence of pneumonia at this time. Patient will be continued on ceftriaxone area -Myelodysplastic syndrome: Hemoglobin is fairly stable at 9.7 will not require any transfusion elevated MCV secondary to myelodysplastic syndrome -Fibromyalgia -Benign prostatic hypertrophy -Depression next Her for above-mentioned chronic medical problems patient will be resumed and continued on home medications. Patient will need to be on GI prophylaxis as well as DVT prophylaxis.
[2017-08-10] MEDS: oxyCODONE-APAP 10-325MG 1 EACH TAB PO PRN ×2 (17:46→23:38)
[2017-08-10] MEDS: SYMBICORT 80-4.5 MCG INHALER INHALATION SCH (20:50)
[2017-08-10] MEDS ORDERED: MONTELUKAST 10 MG TAB PO SCH (21:00)
[2017-08-10] MEDS ORDERED: ATORVASTATIN 20 MG TAB PO SCH (21:00)
[2017-08-10] MEDS: DARBEPOETIN ALFA 60 MCG/0.3 ML SYRINGE SQ SCH (21:23)
[2017-08-10] MEDS: FAMOTIDINE 20 MG TAB PO SCH (21:24)
[2017-08-10] MEDS: HEPARIN SODIUM,PORCINE 5,000 UNIT/ML 1 ML VIAL SQ SCH (21:24)
[2017-08-11] MEDS: oxyCODONE-APAP 10-325MG 1 EACH TAB PO PRN ×2 (06:11→14:00)
[2017-08-11] MEDS: IPRATROPIUM-ALBUTEROL 3 ML NEB INHALATION SCH ×3 (07:13→15:37)
[2017-08-11] MEDS: SYMBICORT 80-4.5 MCG INHALER INHALATION SCH (07:14)
[2017-08-11] MEDS ORDERED: NON-FORMULARY DRUG (Tiotropium 18 Mcg/Puff 1 CAP) INHALATION SCH (08:00)
[2017-08-11 08:11] VITALS: BP 107/64; RESP 20; TEMP 98.5
[2017-08-11] MEDS: FAMOTIDINE 20 MG TAB PO SCH (08:41)
[2017-08-11] MEDS: HEPARIN SODIUM,PORCINE 5,000 UNIT/ML 1 ML VIAL SQ SCH (08:42)
[2017-08-11] MEDS: DARBEPOETIN ALFA 60 MCG/0.3 ML SYRINGE SQ SCH (08:42)
[2017-08-11] MEDS: SODIUM CHLORIDE 0.9% 1,000 ML IV SCH (08:43)
[2017-08-11] MEDS ORDERED: ASPIRIN 81 MG PO SCH (09:00)
[2017-08-11] MEDS ORDERED: LEVOFLOXACIN 500 MG TAB PO SCH (09:00)
[2017-08-11] MEDS ORDERED: cefTRIAXone IN SWFI 1,000 MG/10 ML SYRINGE IVP SCH (09:00)
[2017-08-11] MEDS ORDERED: predniSONE 20 MG TAB PO SCH (09:00)
--- NOTE | 2017-08-11 11:42 | P.DS ---
Providers Date of admission: 08/10/17 14:13 Attending physician: Xiomara Allison Consults: 08/10/17 14:13 Consult Physician Routine Consulting Provider: Peace Latham Reason/Comments: dyspnea Do you want consulting provider notified?: Yes [facility] Course: Visit with resume exacerbation patient is saturating well no significant wheezing on exam and patient will be discharged today. Patient has multiple hospitalization mostly because he is concerned that he may go into respiratory failure as he lives by himself. Patient does have multiple chronic medical problems will get PT and OT to evaluate the patient and get the case planner and social work to evaluate for any assistance that can be provided to avoid rehospitalizations patient is requesting a brace for his previous compression fracture which will be provided. PHYSICAL EXAMINATION: GENERAL: The patient is alert and oriented x3, not in any acute distress. Well developed, well nourished. HEENT: Pupils are round and equally reacting to light. EOMI. No scleral icterus. No conjunctival pallor. Normocephalic, atraumatic. No pharyngeal erythema. No thyromegaly. CARDIOVASCULAR: S1 and S2 present. No murmurs, rubs, or gallops. PULMONARY: Chest is clear to auscultation, no wheezing or crackles. ABDOMEN: Soft, nontender, nondistended, normoactive bowel sounds. No palpable organomegaly. MUSCULOSKELETAL: No joint swelling or deformity. EXTREMITIES: No cyanosis, clubbing, or pedal edema. NEUROLOGICAL: Gross neurological examination did not reveal any focal deficits. SKIN: No rashes. Assessment and Plan Plan: Acute on chronic hypercapnic respiratory failure: Secondary to COPD exacerbation -Fever leukocytosis probably due to tracheobronchitis discharged on Ceftin -Myelodysplastic syndrome: Hemoglobin is fairly stable at 9.7 will not require any transfusion elevated MCV secondary to myelodysplastic syndrome -Fibromyalgia -Benign prostatic hypertrophy -Depression Plan - Discharge Summary Discharge Rx Participant: No New Discharge Prescriptions: New Cefuroxime Axetil [Ceftin] 500 mg PO BID #6 tab Discontinued Levofloxacin [Levaquin] 500 mg PO DAILY #7 tab No Action Tiotropium 18 Mcg/Puff [Spiriva] 1 cap INHALATION RT-DAILY Fluticasone/Salmeterol [Advair 250-50 Diskus] 1 puff INHALATION RT-BID Montelukast [Singulair] 10 mg PO HS Multivit-Min/FA/Lycopen/Lutein [Centrum Silver Men Tablet] 1 tab PO DAILY Aspirin EC [Ecotrin Low Dose] 81 mg PO DAILY #30 tablet. Atorvastatin [Lipitor] 20 mg PO HS #30 tab Ipratropium-Albuterol Nebulize [Duoneb 0.5 mg-3 mg/3 ml Soln] 3 ml INHALATION RT-QID #0 fentaNYL 25MCG/HR PATCH [Duragesic 25MCG/HR] 1 patch TRANSDERM Q72H #5 patch oxyCODONE HCL/ACETAMINOPHEN [Percocet 10-325 mg] 1 tab PO Q6HR PRN #8 tab PRN Reason: Pain predniSONE See Taper PO DAILY Epoetin Joe [Procrit] 20,000 unit SQ Q7D Discharge Medication List Fluticasone/Salmeterol [Advair 250-50 Diskus] 1 puff INHALATION RT-BID 10/09/16 [History] Tiotropium 18 Mcg/Puff [Spiriva] 1 cap INHALATION RT-DAILY 10/09/16 [History] Montelukast [Singulair] 10 mg PO HS 01/05/17 [History] Multivit-Min/FA/Lycopen/Lutein [Centrum Silver Men Tablet] 1 tab PO DAILY [History] Aspirin EC [Ecotrin Low Dose] 81 mg PO DAILY #30 tablet. 05/30/17 [Rx] Atorvastatin [Lipitor] 20 mg PO HS #30 tab 05/30/17 [Rx] Ipratropium-Albuterol Nebulize [Duoneb 0.5 mg-3 mg/3 ml Soln] 3 ml INHALATION RT -QID #0 07/22/17 [Rx] fentaNYL 25MCG/HR PATCH [Duragesic 25MCG/HR] 1 patch TRANSDERM Q72H #5 patch [Rx] oxyCODONE HCL/ACETAMINOPHEN [Percocet 10-325 mg] 1 tab PO Q6HR PRN #8 tab [Rx] Epoetin Joe [Procrit] 20,000 unit SQ Q7D 08/10/17 [History] predniSONE See Taper PO DAILY 08/10/17 [History] Cefuroxime Axetil [Ceftin] 500 mg PO BID #6 tab 08/11/17 [Rx] Follow up Appointment(s)/Referral(s): Yang Corrigan DO [Primary Care Provider] - 08/14/17 2:00 pm Patient Instructions/Handouts: Cefuroxime (By mouth), COPD (Chronic Obstructive Pulmonary Disease) (DC)
--- NOTE | 2017-08-11 13:16 | P.CNPUL ---
History of Present Illness Consult date: 08/11/17 Reason for consult: dyspnea, cough, COPD, hypoxemia, pulmonary fibrosis, abnormal CXR/CT Chief complaint: Shortness of breath/difficulty breathing History of present illness: Consult dated 08/11/2017 This is a 51-year-old male who presented to the biggest problem with complaints of difficulty breathing. He has a history of known severe COPD and some pulmonary fibrosis as well as myelodysplastic syndrome. The patient has been in the hospital many times here in the recent number of weeks. He apparently was on doxycycline recently switched to Levaquin. The patient does admit to some cough and some phlegm production. Also admits to being very short of breath. I'm not sure why he was admitted to the hospital. Likely could be given some antibiotics and steroids in the emergency department and sent home. In fact, he was in the hospital make much in my opinion. I told back to him today. I'm concerned about nosocomial infection. Anyway, his chest x-ray showed changes of COPD some pulmonary fibrosis and some chronic changes that have been present for some time. He also looks like he is at his baseline. States he is feeling much better than it was in the emergency room yesterday. I can't imagine that he was much different that he was today. Review of Systems A 12 point review of system is positive for shortness of breath chest tightness wheezing cough and some phlegm production. The rest of the 12 point review of system is unremarkable. Specifically, constitutional negative, neurologic negative, HEENT negative, cardiovascular negative, GI/ negative, rheumatologic negative, neurologic negative, dermatologic negative. Past Medical History Past Medical History: Cancer, COPD, Liver Disease, Memory Impairment, Pneumonia , Prostate Disorder Additional Past Medical History / Comment(s): admitted to [facility] on 05/22/17 with tracheobronchitis. Other hx: Myelodysplastic syndrome pt states diagnosed January [address] French, macrocytic anemia, weekly epogen injections, chronic hypoxic respiratory failure, home O2 at 2L/NC ATC, abdominal aortic aneurysm, bilateral spontaneous pneumothorax (left once and right twice) with chest tubes and pleurodesis, degenerative arthritis, BPH. History of Any Multi-Drug Resistant Organisms: None Reported Additional Past Surgical History / Comment(s): Bilateral pleurodesis, BMA Past Anesthesia/Blood Transfusion Reactions: No Reported Reaction Additional Past Anesthesia/Blood Transfusion Reaction / Comment(s): pt stated he moved here from [place] a year ago. lives alone in apt-no steps. no outside services received. has home 02 /concentrator. no pets. no past service. 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 Past Psychological History: Anxiety, Depression Additional Psychological History / Comment(s): Pt moved from [place] about a year ago. He lives alone in an apartment with no steps. He has [facility] nurse coming to give him his Epigen injections. He has home O2/concentrator, tank. No pets. No experience. No international travel. No animal exposures. Is not and has no children Smoking Status: Current every day smoker Past Alcohol Use History: None Reported Additional Past Alcohol Use History / Comment(s): Pt started smoking in 1979 Past Drug Use History: None Reported - Past Family History Father History Unknown: Yes Mother Family Medical History: Cancer, Coronary Artery Disease (CAD) Additional Family Medical History / Comment(s): lung cancer, lymphoma. Medications and Allergies Home Medications Medication Instructions Recorded Confirmed Type Fluticasone/Salmeterol [Advair 1 puff INHALATION RT-BID 10/09/16 08/10/17 History 250-50 Diskus] Tiotropium 18 Mcg/Puff [Spiriva] 1 cap INHALATION RT-DAILY 10/09/16 08/10/17 History Montelukast [Singulair] 10 mg PO HS 01/05/17 08/10/17 History Multivit-Min/FA/Lycopen/Lutein 1 tab PO DAILY 01/27/17 08/10/17 History [Centrum Silver Men Tablet] Aspirin EC [Ecotrin Low Dose] 81 mg PO DAILY #30 tablet. 05/30/17 08/10/17 Rx Atorvastatin [Lipitor] 20 mg PO HS #30 tab 05/30/17 08/10/17 Rx Ipratropium-Albuterol Nebulize 3 ml INHALATION RT-QID #0 07/22/17 08/10/17 Rx [Duoneb 0.5 mg-3 mg/3 ml Soln] fentaNYL 25MCG/HR PATCH [Duragesic 1 patch TRANSDERM Q72H #5 patch 07/24/1712/20 Rx 25MCG/HR] oxyCODONE HCL/ACETAMINOPHEN 1 tab PO Q6HR PRN #8 tab 07/24/17 08/10/17 Rx [Percocet 10-325 mg] Epoetin Joe [Procrit] 20,000 unit SQ Q7D 08/10/17 08/10/17 History predniSONE See Taper PO DAILY 08/10/17 08/10/17 History Cefuroxime Axetil [Ceftin] 500 mg PO BID #6 tab 08/11/17 Rx Allergies Allergy/AdvReac Type Severity Reaction Status Date / Time No Known Allergies Allergy Verified 08/10/17 14:32 Physical Exam Osteopathic Statement: *. No significant issues noted on an osteopathic structural exam other than those noted in the History and Physical/Consult. Vitals: Vital Signs Temp Pulse Pulse Resp BP BP Pulse Ox 08/11/17 10:57 88 08/11/17 10:50 84 08/11/17 07:30 88 08/11/17 07:17 85 08/11/17 07:00 98.5 F 79 20 107/64 98 08/11/17 00:00 18 08/10/17 21:44 97.7 F 80 18 81/57 99 08/10/17 21:05 90 08/10/17 20:52 88 08/10/17 16:00 28 H 08/10/17 15:48 90 18 08/10/17 15:39 88 18 08/10/17 14:49 98.3 F 111 H 24 98/54 94 L 08/10/17 13:42 107 H 24 94/66 95 08/10/17 13:14 90 18 Intake and Output 08/10/17 08/11/17 08/11/17 22:59 06:59 14:59 Other: Voiding Method Toilet Toilet Urinal Urinal # Voids 2 1 # Bowel Movements 1 Weight 59 kg 59 kg No acute distress, oriented 3. Nasal O2 in place. He does not appear to be a very short of breath at this time. HEENT examination is grossly unremarkable. Mucous membranes are moist. No oral lesions. Neck supple. Full range of motion. No adenopathy thyromegaly or neck vein distention. Cardiovascular examination reveals regular rhythm rate. S1-S2 normal. No S3 or S4. No discernible murmur noted. Lungs reveal severely diminished breath sounds throughout. Breath sounds equal bilaterally. Slight prolongation. No wheezes or crackles. There is some mild coarse rhonchi noted. Abdomen soft bowel sounds are heard. No masses or tenderness. Extremities are intact. No cyanosis clubbing or edema. Skin is without rash or lesion. Neurologic examination is brief but nonfocal. Results - Laboratory Findings CBC and BMP: 08/10/17 11:59 08/10/17 11:59 PT/INR, D-dimer PT 10.8 sec (9.0-12.0) 08/10/17 11:59 INR 1.1 (<1.2) 08/10/17 11:59 Abnormal lab findings: Abnormal Labs 08/10/17 08/10/17 08/10/17 11:59 11:59 11:59 RBC 2.95 L Hgb 9.7 L D Hct 29.5 L MCV 100.1 H RDW 19.6 H Lymphocytes # 0.4 L Sodium 135 L Chloride 97 L BUN 21 H Glucose 117 H ALT 18 L Total Creatine Kinase 26 L Albumin 3.3 L Urine Blood Urine Mucus 08/10/17 13:35 RBC Hgb Hct MCV RDW Lymphocytes # Sodium Chloride BUN Glucose ALT Total Creatine Kinase Albumin Urine Blood Moderate H Urine Mucus Rare H - Diagnostic Findings Chest x-ray: image reviewed (Labs x-rays a medications are all reviewed. Chest x-ray is unchanged.) Assessment and Plan Assessment: Assessment Mild COPD exacerbation, complicated by possible mild purulent tracheobronchitis Multiple hospitalizations for same Myelodysplastic syndrome Chronic hypoxemic respiratory failure History of abdominal aortic aneurysm Previous history of bilateral spontaneous pneumothorax Ongoing tobacco use despite counseling DJD BPH Chronic back pain and chronic pain syndrome and general Plan: Plan dated 08/11/2017 In my opinion, the patient could be discharged home. I believe the hospitalist feels the same way. He should follow-up with his lung doctor in the office. The patient should be discharged home on a short course of oral antibiotics and a short course of steroids. No additional recommendations are made. His primary care physician is Dr. Corrigan in near [place] at the [facility]. Additional recommendations and suggestions are forthcoming. Again the patient is counseled about the importance of smoking cessation and about the importance of not wanting to be admitted every time his COPD acts up just a bit Time with Patient: Greater than 30
[2017-08-11 15:53] VITALS: PULSE 88
== END 2017-08-11 16:00 | disposition home or self-care (01) | DRG 190 ==
LOC: EC 11:24 → 5MS5E 14:13 → 5ONC 14:40
PROVIDERS: ADMIT Internal Medicine; ATTEND Internal Medicine
DX: J44.0 Chronic obstructive pulmonary disease with (acute) lower respiratory infection (principal); J96.22 Acute and chronic respiratory failure with hypercapnia; J96.21 Acute and chronic respiratory failure with hypoxia; J84.10 Pulmonary fibrosis, unspecified; Z99.81 Dependence on supplemental oxygen; D46.9 Myelodysplastic syndrome, unspecified; J44.1 Chronic obstructive pulmonary disease with (acute) exacerbation; K76.9 Liver disease, unspecified; D53.9 Nutritional anemia, unspecified; J40 Bronchitis, not specified as acute or chronic; G89.4 Chronic pain syndrome; F32.9 Major depressive disorder, single episode, unspecified; M79.7 Fibromyalgia; N40.0 Benign prostatic hyperplasia without lower urinary tract symptoms; M19.91 Primary osteoarthritis, unspecified site; I71.4 Abdominal aortic aneurysm, without rupture; F41.9 Anxiety disorder, unspecified; M54.9 Dorsalgia, unspecified; F17.200 Nicotine dependence, unspecified, uncomplicated; Z71.6 Tobacco abuse counseling; Z79.82 Long term (current) use of aspirin; Z79.891 Long term (current) use of opiate analgesic; Z79.51 Long term (current) use of inhaled steroids; Z79.899 Other long term (current) drug therapy; Z87.01 Personal history of pneumonia (recurrent); Z82.49 Family history of ischemic heart disease and other diseases of the circulatory system; Z80.1 Family history of malignant neoplasm of trachea, bronchus and lung; Z80.7 Family history of other malignant neoplasms of lymphoid, hematopoietic and related tissues
CPT/HCPCS: 36415; 71045; 71046; 80053; 81001; 82550; 82553; 83605; 83880; 84484; 85025; 85027; 85610; 85730; 87040; 87086; 87502; 93005; 94640; 96374; 99285

== ENCOUNTER 2017-08-19 04:56 | Inpatient (IN) | payer MEDICARE ==
--- NOTE | 2017-08-19 05:04 | ED ---
General Adult HPI - General Source: RN notes reviewed <Topher Grant - Last Filed: 08/19/17 06:49> <Louis Lawson - Last Filed: 08/19/17 07:55> - General Stated complaint: IMER Time Seen by Provider: 08/19/17 04:56 - History of Present Illness Initial comments: This is a 51-year-old male who presents to the emergency department with past medical history significant for COPD continues to smoke in the past history of bone cancer for which she is being treated. Patient comes in today because he woke up significantly short of breath. According to the paramedics the patient was very tachycardic and tachypneic and oxygenating at about 81%. Patient got [address] and it which helped considerably but the patient is now complaining of significant chest pressure. Patient denies any radiation of the pain patient denies diaphoresis. Patient denies nausea. Patient states he has had a cough but no fever. Patient denies lightheadedness dizziness or near syncopal episode. (Topher Grant) - Related Data Home Medications Medication Instructions Recorded Confirmed Fluticasone/Salmeterol [Advair 1 puff INHALATION RT-BID 10/09/16 08/19/17 250-50 Diskus] Tiotropium 18 Mcg/Puff [Spiriva] 1 cap INHALATION RT-DAILY 10/09/16 08/19/17 Montelukast [Singulair] 10 mg PO HS 01/05/17 08/19/17 Epoetin Joe [Procrit] 20,000 unit SQ PADILLA 08/10/17 08/19/17 Ipratropium-Albuterol Nebulize 3 ml INHALATION RT-Q4H PRN 08/19/17 08/19/17 [Duoneb 0.5 mg-3 mg/3 ml Soln] Levofloxacin [Levaquin] 500 mg PO DAILY 08/19/17 08/19/17 buPROPion XL [Wellbutrin Xl] 150 mg PO DAILY 08/19/17 08/19/17 predniSONE 20 mg PO DAILY 08/19/17 08/19/17 Previous Rx's Medication Instructions Recorded Aspirin EC [Ecotrin Low Dose] 81 mg PO DAILY #30 tablet. 05/30/17 Atorvastatin [Lipitor] 20 mg PO HS #30 tab 05/30/17 fentaNYL 25MCG/HR PATCH [Duragesic 1 patch TRANSDERM Q72H #5 patch 07/24/17 25MCG/HR] oxyCODONE HCL/ACETAMINOPHEN 1 tab PO Q6HR PRN #8 tab 07/24/17 [Percocet 10-325 mg] Allergies Allergy/AdvReac Type Severity Reaction Status Date / Time No Known Allergies Allergy Verified 08/19/17 07:45 Review of Systems ROS Other: All systems not noted in ROS Statement are negative. <Topher Grant - Last Filed: 08/19/17 06:49> ROS Other: All systems not noted in ROS Statement are negative. <Louis Lawson - Last Filed: 08/19/17 07:55> ROS Statement: Those systems with pertinent positive or pertinent negative responses have been documented in the HPI. Past Medical History Past Medical History: Cancer, COPD, Liver Disease, Memory Impairment, Pneumonia , Prostate Disorder Additional Past Medical History / Comment(s): admitted to [facility] on 05/22/17 with tracheobronchitis. Other hx: Myelodysplastic syndrome pt states diagnosed January [address] French, macrocytic anemia, weekly epogen injections, chronic hypoxic respiratory failure, home O2 at 2L/NC ATC, abdominal aortic aneurysm, bilateral spontaneous pneumothorax (left once and right twice) with chest tubes and pleurodesis, degenerative arthritis, BPH. History of Any Multi-Drug Resistant Organisms: None Reported Additional Past Surgical History / Comment(s): Bilateral pleurodesis, BMA Past Anesthesia/Blood Transfusion Reactions: No Reported Reaction Additional Past Anesthesia/Blood Transfusion Reaction / Comment(s): pt stated he moved here from [place] a year ago. lives alone in apt-no steps. no outside services received. has home 02 /concentrator. no pets. no past service. 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 Past Psychological History: Anxiety, Depression Additional Psychological History / Comment(s): Pt moved from [place] about a year ago. He lives alone in an apartment with no steps. He has [facility] nurse coming to give him his Epigen injections. He has home O2/concentrator, tank. No pets. No experience. No international travel. No animal exposures. Is not and has no children Smoking Status: Current every day smoker Past Alcohol Use History: None Reported Additional Past Alcohol Use History / Comment(s): Pt started smoking in 1979 Past Drug Use History: None Reported - Past Family History Father History Unknown: Yes Mother Family Medical History: Cancer, Coronary Artery Disease (CAD) Additional Family Medical History / Comment(s): lung cancer, lymphoma. <Topher Grant - Last Filed: 08/19/17 06:49> General Exam <Topher Grant - Last Filed: 08/19/17 06:49> <Louis Lawson - Last Filed: 08/19/17 07:55> - General Exam Comments Initial Comments: GENERAL: Patient is well-developed and well-nourished. Patient is nontoxic and well- hydrated and is in moderate distress. ENT: Neck is soft and supple. No significant lymphadenopathy is noted. Oropharynx is clear. Moist mucous membranes. Neck has full range of motion without eliciting any pain. EYES: The sclera were anicteric and conjunctiva were pink and moist. Extraocular movements were intact and pupils were equal round and reactive to light. Eyelids were unremarkable. PULMONARY: Slightly decreased air with occasional crackle in the right base. CARDIOVASCULAR: There is a regular rate and rhythm without any murmurs gallops or rubs. ABDOMEN: Soft and nontender with normal bowel sounds. No palpable organomegaly was noted. There is no palpable pulsatile mass. SKIN: Skin is clear with no lesions or rashes and otherwise unremarkable. NEUROLOGIC: Patient is alert and oriented x3. Cranial nerves II through XII are grossly intact. Motor and sensory are also intact. Normal speech, volume and content. Symmetrical smile. MUSCULOSKELETAL: Normal extremities with adequate strength and full range of motion. No lower extremity swelling or edema. No calf tenderness. LYMPHATICS: No significant lymphadenopathy is noted PSYCHIATRIC: Patient is very anxious (Topher Grant) Vital Signs 08/19/17 08/19/17 08/19/17 05:00 05:22 06:25 Temperature 99.1 F 100.8 F H Pulse Rate 133 H 126 H Respiratory 28 H 22 14 Rate Blood Pressure 114/61 102/65 O2 Sat by Pulse 94 L 94 L Oximetry Medical Decision Making - Lab Data Result diagrams: 08/19/17 05:10 08/19/17 05:10 <Topher Grant - Last Filed: 08/19/17 06:49> - Lab Data Result diagrams: 08/19/17 05:10 08/19/17 05:10 <Louis Lawson - Last Filed: 08/19/17 07:55> - Medical Decision Making EKG shows sinus tachycardia with occasional PAC at a rate of 135 bpm PA interval is 140 QRS is 74 QT interval is 278 QTC is 417. Patient's EKG shows no obvious ST segment elevation or depression. Dr. Lawson will be taking over the care of this patient at 7 AM (Topher Grant) 51-year-old male signed out at shift change awaiting laboratory studies and computed tomography scan. Patient had significant elevated d-dimer, and was started on heparin for concern of PE. CT angiography was obtained is negative for PE, heparin was discontinued. CT did show fibrosis, advanced emphysema, and concern for possible acute consolidation consistent with pneumonia. Patient 's laboratory studies reveal normal white blood cell count, hemoglobin is 10, troponin and BNP are negative. Patient is started on Levaquin, given additional albuterol and steroids. Patient's presentation is consistent with COPD exacerbation with pneumonia. He will be admitted for further treatment and evaluation. Pulmonology placed on consult. (Louis Lawson) - Lab Data Lab Results 08/19/17 08/19/17 08/19/17 Range/Units 05:10 05:10 05:10 WBC 6.4 (3.8-10.6) k/uL RBC 3.15 L (4.30-5.90) m/uL Hgb 10.0 L (13.0-17.5) gm/dL Hct 31.2 L (39.0-53.0) % MCV 98.8 (80.0-100.0) fL MCH 31.7 (25.0-35.0) pg MCHC 32.1 (31.0-37.0) g/dL RDW 18.8 H (11.5-15.5) % Plt Count 405 (150-450) k/uL Neutrophils % 75 % Lymphocytes % 16 % Monocytes % 5 % Eosinophils % 0 % Basophils % 0 % Neutrophils # 4.8 (1.3-7.7) k/uL Lymphocytes # 1.0 (1.0-4.8) k/uL Monocytes # 0.3 (0-1.0) k/uL Eosinophils # 0.0 (0-0.7) k/uL Basophils # 0.0 (0-0.2) k/uL Hypochromasia Slight Poikilocytosis Slight Anisocytosis Slight Macrocytosis Slight PT (9.0-12.0) sec INR (<1.2) APTT (22.0-30.0) sec D-Dimer (<0.60) mg/L FEU Sodium 138 (137-145) mmol/L Potassium 4.0 (3.5-5.1) mmol/L Chloride 97 L (98-107) mmol/L Carbon Dioxide 27 (22-30) mmol/L Anion Gap 14 mmol/L BUN 22 H (9-20) mg/dL Creatinine 0.90 (0.66-1.25) mg/dL Est GFR (CKD-EPI)AfAm >90 (>60 ml/min/1.73 sqM) Est GFR (CKD-EPI)NonAf >90 (>60 ml/min/1.73 sqM) Glucose 101 H (74-99) mg/dL Plasma Lactic Acid Jeff (0.7-2.0) mmol/L Calcium 9.4 (8.4-10.2) mg/dL Magnesium 1.7 (1.6-2.3) mg/dL Total Bilirubin 0.9 (0.2-1.3) mg/dL AST 20 (17-59) U/L ALT 25 (21-72) U/L Alkaline Phosphatase 95 (38-126) U/L Total Creatine Kinase <20 L (55-170) U/L CK-MB (CK-2) 0.4 (0.0-2.4) ng/mL CK-MB (CK-2) Rel Index Troponin I <0.012 (0.000-0.034) ng/mL NT-Pro-B Natriuret Pep pg/mL Total Protein 7.7 (6.3-8.2) g/dL Albumin 3.6 (3.5-5.0) g/dL Influenza Type A RNA (Not Detectd) Influenza Type B (PCR) (Not Detectd) 08/19/17 08/19/17 08/19/17 Range/Units 05:10 05:10 05:10 WBC (3.8-10.6) k/uL RBC (4.30-5.90) m/uL Hgb (13.0-17.5) gm/dL Hct (39.0-53.0) % MCV (80.0-100.0) fL MCH (25.0-35.0) pg MCHC (31.0-37.0) g/dL RDW (11.5-15.5) % Plt Count (150-450) k/uL Neutrophils % % Lymphocytes % % Monocytes % % Eosinophils % % Basophils % % Neutrophils # (1.3-7.7) k/uL Lymphocytes # (1.0-4.8) k/uL Monocytes # (0-1.0) k/uL Eosinophils # (0-0.7) k/uL Basophils # (0-0.2) k/uL Hypochromasia Poikilocytosis Anisocytosis Macrocytosis PT 10.1 (9.0-12.0) sec INR 1.0 (<1.2) APTT 23.2 (22.0-30.0) sec D-Dimer 5.16 H (<0.60) mg/L FEU Sodium (137-145) mmol/L Potassium (3.5-5.1) mmol/L Chloride (98-107) mmol/L Carbon Dioxide (22-30) mmol/L Anion Gap mmol/L BUN (9-20) mg/dL Creatinine (0.66-1.25) mg/dL Est GFR (CKD-EPI)AfAm (>60 ml/min/1.73 sqM) Est GFR (CKD-EPI)NonAf (>60 ml/min/1.73 sqM) Glucose (74-99) mg/dL Plasma Lactic Acid Jeff 1.9 (0.7-2.0) mmol/L Calcium (8.4-10.2) mg/dL Magnesium (1.6-2.3) mg/dL Total Bilirubin (0.2-1.3) mg/dL AST (17-59) U/L ALT (21-72) U/L Alkaline Phosphatase (38-126) U/L Total Creatine Kinase (55-170) U/L CK-MB (CK-2) (0.0-2.4) ng/mL CK-MB (CK-2) Rel Index Troponin I (0.000-0.034) ng/mL NT-Pro-B Natriuret Pep 174 pg/mL Total Protein (6.3-8.2) g/dL Albumin (3.5-5.0) g/dL Influenza Type A RNA (Not Detectd) Influenza Type B (PCR) (Not Detectd) 08/19/17 Range/Units 07:16 WBC (3.8-10.6) k/uL RBC (4.30-5.90) m/uL Hgb (13.0-17.5) gm/dL Hct (39.0-53.0) % MCV (80.0-100.0) fL MCH (25.0-35.0) pg MCHC (31.0-37.0) g/dL RDW (11.5-15.5) % Plt Count (150-450) k/uL Neutrophils % % Lymphocytes % % Monocytes % % Eosinophils % % Basophils % % Neutrophils # (1.3-7.7) k/uL Lymphocytes # (1.0-4.8) k/uL Monocytes # (0-1.0) k/uL Eosinophils # (0-0.7) k/uL Basophils # (0-0.2) k/uL Hypochromasia Poikilocytosis Anisocytosis Macrocytosis PT (9.0-12.0) sec INR (<1.2) APTT (22.0-30.0) sec D-Dimer (<0.60) mg/L FEU Sodium (137-145) mmol/L Potassium (3.5-5.1) mmol/L Chloride (98-107) mmol/L Carbon Dioxide (22-30) mmol/L Anion Gap mmol/L BUN (9-20) mg/dL Creatinine (0.66-1.25) mg/dL Est GFR (CKD-EPI)AfAm (>60 ml/min/1.73 sqM) Est GFR (CKD-EPI)NonAf (>60 ml/min/1.73 sqM) Glucose (74-99) mg/dL Plasma Lactic Acid Jeff (0.7-2.0) mmol/L Calcium (8.4-10.2) mg/dL Magnesium (1.6-2.3) mg/dL Total Bilirubin (0.2-1.3) mg/dL AST (17-59) U/L ALT (21-72) U/L Alkaline Phosphatase (38-126) U/L Total Creatine Kinase (55-170) U/L CK-MB (CK-2) (0.0-2.4) ng/mL CK-MB (CK-2) Rel Index Troponin I (0.000-0.034) ng/mL NT-Pro-B Natriuret Pep pg/mL Total Protein (6.3-8.2) g/dL Albumin (3.5-5.0) g/dL Influenza Type A RNA Not Detected (Not Detectd) Influenza Type B (PCR) Not Detected (Not Detectd) Disposition <Topher Grant - Last Filed: 08/19/17 06:49> Is patient prescribed a controlled substance at discharge?: No Decision to Admit Reason: Admit from EC Decision Date: 08/19/17 Decision Time: 07:55 <Louis Lawson - Last Filed: 08/19/17 07:55> Clinical Impression: Acute exacerbation of chronic obstructive airways disease, Healthcare- associated pneumonia Disposition: ADMITTED IP TO THIS HOSP Condition: Stable Referrals: Yang Corrigan DO [Primary Care Provider] - 1-2 days
--- NOTE | 2017-08-19 05:24 | XR ---
EXAM: XR Chest, 2 Views CLINICAL HISTORY: ITS.REASON XR Reason: difficulty breathing TECHNIQUE: Frontal and lateral views of the chest. COMPARISON: 08/14/17 FINDINGS: Lungs: Stable biapical scarring. Stable diffuse pulmonary interstitial opacities. Pleural space: Unremarkable. No pneumothorax. Heart: Unremarkable. No cardiomegaly. Mediastinum: Unremarkable. Bones/joints: Unremarkable. IMPRESSION: No acute process. Stable scarring and emphysematous changes.
[2017-08-19 05:33] LABS: Anisocytosis Slight; Basophils % (A) 0 %; Eosinophils % (A) 0 %; HCT 31.2 % (39.0-53.0); Hypochromasia Slight; Lymphocytes % (A) 16 %; MCH 31.7 pg (25.0-35.0); MCHC 32.1 g/dL (31.0-37.0); MCV 98.8 fL (80.0-100.0); Macrocytosis Slight; Mean Platelet Volume 6.6; Monocytes # (A) 0.3 k/uL (0-1.0); Monocytes % (A) 5 %; Neutrophils # (A) 4.8 k/uL (1.3-7.7); Neutrophils % (A) 75 %; Platelet Count 405 k/uL (150-450); Poikilocytosis Slight; RBC 3.15 m/uL (4.30-5.90); RDW 18.8 % (11.5-15.5); WBC 6.4 k/uL (3.8-10.6)
[2017-08-19 05:46] LABS: D-Dimer 5.16 mg/L FEU (<0.60)
[2017-08-19 05:47] LABS: ALT 25 U/L (21-72); AST 20 U/L (17-59); Albumin 3.6 g/dL (3.5-5.0); Alkaline Phosphatase 95 U/L (38-126); Anion Gap 14 mmol/L; Blood Urea Nitrogen 22 mg/dL (9-20); Calcium 9.4 mg/dL (8.4-10.2); Carbon Dioxide 27 mmol/L (22-30); Chloride 97 mmol/L (98-107); Glucose 101 mg/dL (74-99); Magnesium 1.7 mg/dL (1.6-2.3); Partial Thromboplastin Time 23.2 sec (22.0-30.0); Prothrombin Time 10.1 sec (9.0-12.0); Sodium 138 mmol/L (137-145); Total Bilirubin 0.9 mg/dL (0.2-1.3); Total Protein 7.7 g/dL (6.3-8.2)
[2017-08-19 05:50] LABS: Creatine Kinase <20 U/L (55-170)
[2017-08-19 06:03] LABS: Creatine Kinase MB 0.4 ng/mL (0.0-2.4); Troponin I <0.012 ng/mL (0.000-0.034)
[2017-08-19] MEDS ORDERED: RX INFO: IV CONTRAST WAS GIVEN 1 EACH MISC MISCELLANE PRN (06:08)
[2017-08-19] MEDS ORDERED: HEPARIN SODIUM,PORCINE 10,000 UNIT/ML 1 ML VIAL IV ONE (06:08)
[2017-08-19] MEDS ORDERED: HYDROcodone/APAP 10-325MG 1 EACH TAB PO ONE (06:09)
[2017-08-19] MEDS ORDERED: HEPARIN SOD,PORK IN 0.45% NACL 25,000 UNIT in 0.45% NACL 1 500ML.BAG IV SCH (06:15)
--- NOTE | 2017-08-19 07:30 | CT ---
EXAMINATION TYPE: CT chest angio for PE DATE OF EXAM: 08/19/2017 COMPARISON: CT chest May 26, 2017. HISTORY: IMER with elevated d-dimer. History of right-sided lung cancer. CT DLP: 146.5 mGycm. Automated Exposure Control for Dose Reduction was Utilized. CONTRAST: CTA scan of the thorax is performed with IV Contrast, patient injected with 68 mL of Isovue 370, pulm onary embolism protocol. MIP Images are created on CT scanner and reviewed. FINDINGS: LUNGS: There is persistent advanced emphysematous change most prominent in lung apices with large bul la and bleb formation. There are multiple calcified right hilar and suprahilar nodules or lymph nodes with additional calcified right upper lobe granulomas. There is advanced pleural/parenchymal scarrin g right greater than left in both apices and upper lobes with dystrophic calcifications redemonstrate d. Areas of honeycombing are noted throughout both lungs including periphery of both bases. Some new areas of consolidation right upper lobe with air bronchograms is present favoring acute infectious pr ocess over progression of chronic disease, correlate clinically. No pleural effusion or pneumothorax is evident. There is right hilar superior retraction likely from prior right lung surgery. MEDIASTINUM: There is satisfactory enhancement of the pulmonary artery and its branches, there is no CT evidence for pulmonary embolism. There are some prominent but subcentimeter noncalcified right hi lar lymph nodes inferior to the calcified right suprahilar lymph nodes. There is prominent right para tracheal and subcarinal noncalcified lymph node. For reference subcarinal lymph node measures 1.7 x 1 .0 cm axial image 69. Need to further investigate with PET/CT should be based on clinical correlation . No cardiomegaly or pericardial effusion is seen. Coronary artery calcification is present. OTHER: Exaggerated thoracic kyphosis is seen. There is multilevel spurring in the spine. There is mil d height loss superior T10 endplate. A few calcifications are seen scattered throughout the spleen. IMPRESSION: 1. No CTA evidence for acute pulmonary embolism 2. Advanced emphysematous change with prominent bilateral fibrosis, evidence of right lung surgery wi th volume loss and old granulomatous disease. Areas of acute consolidation right upper lung are diffi cult to exclude on background of chronic change. Correlate clinically.
[2017-08-19] MEDS ORDERED: IPRATROPIUM-ALBUTEROL 3 ML NEB INHALATION STA (07:42)
[2017-08-19] MEDS ORDERED: DEXAMETHASONE SOD PHOSPHATE 10 MG/ML 1 ML VIAL IV STA (07:42)
[2017-08-19] MEDS ORDERED: LEVOFLOXACIN 500MG-D5W PMX 500 MG in DEXTROSE/WATER 1 100ML.BAG IVPB STA (07:43)
[2017-08-19] MEDS ORDERED: ALBUTEROL NEBULIZED 2.5 MG/3 ML INHALATION STA (07:43)
[2017-08-19] MEDS ORDERED: SODIUM CHLORIDE 0.9% 500 ML IV ONE (07:44)
[2017-08-19] MEDS ORDERED: IPRATROPIUM-ALBUTEROL 3 ML NEB INHALATION PRN (07:51)
[2017-08-19] MEDS ORDERED: SODIUM CHLORIDE 0.9% 1,000 ML IV SCH (08:00)
[2017-08-19] MEDS: IPRATROPIUM-ALBUTEROL 3 ML NEB INHALATION SCH ×4 (08:31→20:29)
[2017-08-19 11:40] VITALS: BMI 18.3
[2017-08-19] MEDS: oxyCODONE-APAP 10-325MG 1 EACH TAB PO PRN ×2 (12:18→17:51)
[2017-08-19] MEDS: ASPIRIN 81 MG PO SCH (12:24)
[2017-08-19] MEDS: methylPREDNISolone SOD SUCCI 125 MG/2 ML VIAL IV SCH ×2 (12:24→17:56)
[2017-08-19] MEDS: HEPARIN SODIUM,PORCINE 5,000 UNIT/ML 1 ML VIAL SQ SCH (20:13)
[2017-08-19] MEDS: MONTELUKAST 10 MG TAB PO SCH (20:13)
[2017-08-19] MEDS: ATORVASTATIN 20 MG TAB PO SCH (20:13)
[2017-08-19] MEDS: BUDESONIDE 1 MG/2 ML NEBU INHALATION SCH (20:29)
[2017-08-19] MEDS: FORMOTEROL FUMARATE 20 MCG/2 ML NEBU INHALATION SCH (20:29)
--- NOTE | 2017-08-19 22:05 | HP ---
HISTORY AND PHYSICAL DATE OF SERVICE: 08/19/2017 CHIEF COMPLAINT: Shortness of breath. HISTORY OF PRESENT ILLNESS: This 51-year-old gentleman with a past medical history of multiple medical problems including COPD, CVA, TIA, liver disease, memory impairment, history of myelodysplastic syndrome being followed by Dr. Corrigan in the outpatient setting was admitted to [facility] on several occasions. Currently the patient is complaining of increased shortness of breath. The patient also reports that the pulse ox dropped into 80s and 70s while even on ambulation and the patient is also tachycardic. The pulse ox dropped to 81% as mentioned earlier. Patient came to [facility] admitted for further evaluation and treatment. Dr. Salinas is following the patient closely. A chest x- ray was done on admission in the ER and showed no active process. A CTA of the chest was also done which showed no evidence of pulmonary embolism, and advanced emphysematous changes also noted. The patient admitted for further evaluation. Bronchoscopy is tentatively planned by Dr. Salinas. There is no history of any fever, rigors. No history of headache, loss of consciousness or seizures at this time. PAST MEDICAL HISTORY: History of COPD, CVA, TIA, history of liver disease, memory impairment, history of pneumonia, history of prostate disorder, history of MDS. MEDICATIONS: Prior to admission include: 1. Prednisone 20 mg p.o. daily. 2. Percocet 10 mg 1 tablet every 6 hours p.r.n. 3. 25 mcg q.72 hours. 4. Wellbutrin XL 150 mcg p.o. daily. 5. Spiriva 18 mcg daily. 6. Singular 10 mg q.h.s. 7. Levaquin 500 mg p.o. daily. 8. DuoNeb q.4 p.r.n. 9. Advair 250/50 one puff b.i.d. 10.Procrit 20,000 subcu Friday. 11.Lipitor 20 mg q.h.s. 12.Ecotrin 81 mg p.o. daily. ALLERGIES: None. FAMILY HISTORY: History of CAD, lung cancer and lymphoma. SOCIAL HISTORY: Previous history of smoking, no history of current smoking or alcohol intake. REVIEW OF SYSTEMS: ENT: No diminished hearing or vision. CARDIOVASCULAR: As mentioned earlier. Respiratory: As mentioned earlier. GI no nausea or vomiting. : No dysuria. Nervous system: No numbness, weakness. Allergy/Immunology: No asthma or hay fever. MUSCULOSKELETAL: As mentioned earlier. Hematology/Oncology: No history of anemia. ENDOCRINE: No history of diabetes or hypothyroidism. CONSTITUTIONAL: As mentioned earlier. Dermatology: Negative. Rheumatology: Negative. Psychiatric: As mentioned earlier. PHYSICAL EXAMINATION: Alert and oriented x3. Pulse 95. Blood pressure 94/58, respiration 20, temperature 97.6, pulse ox 98% on 4 L. HEENT is conjunctivae normal. Oral mucosa moist. Neck is no jugular venous distention. No carotid bruit. No lymph node enlargement. Cardiovascular S1, S2 muffled. No S3, no S4. Respiratory: Breath sounds diminished in the bases. A few scattered rhonchi and crackles. Expiratory wheezing also present. ABDOMEN: Soft, nontender. No mass palpable. Legs: No edema. No swelling. NERVOUS SYSTEM: Higher functions as mentioned earlier, moves all 4 limbs. No focal motor or sensory deficits. Lymphatics: No lymph nodes palpable in the neck or axilla. Skin no ulcer, rash or bleeding. LABS: WBC 6.2, hemoglobin 20, D-dimer is 5.16. BUN is 22, glucose 101. Influenza is negative. ASSESSMENT: 1. Chronic obstructive pulmonary disease acute exacerbation with acute purulent tracheobronchitis with acute on chronic hypoxic respiratory failure. 2. Anemia, normocytic anemia of chronic disease. 3. History of nicotine dependence. 4. History of dementia. 5. History of pneumonia. 6. History of myelodysplastic syndrome. 7. History of chronic hypoxic respiratory failure. 8. History of vertigo. 9. History of bilateral spontaneous pneumothorax. 10.History of abdominal aortic aneurysm. 11.History of bilateral pleurodesis. 12.Anxiety, depression. 13.FULL CODE. RECOMMENDATIONS AND DISCUSSION: In this 51-year-old gentleman who presented with multiple complex medical issues. We will monitor the patient closely, continue the current medications, continue symptomatic treatment. I recommend continue with bronchodilators. Continue with IV steroids. Continue with empiric antibiotics. Resume the home medications. DVT prophylaxis. Will follow the patient closely with Dr. Salinas for possible bronchoscopy. Prognosis guarded because of multiple complex medical issues and further recommendations to follow. MMODL / IJN: [id number] / [facility]
[2017-08-19] MEDS ORDERED: IPRATROPIUM-ALBUTEROL 3 ML NEB ONE (23:03)
[2017-08-20] MEDS ORDERED: methylPREDNISolone SOD SUCCI 125 MG/2 ML VIAL ONE
[2017-08-20] MEDS ORDERED: oxyCODONE-APAP 10-325MG 1 EACH TAB ONE
[2017-08-20] MEDS ORDERED: IPRATROPIUM-ALBUTEROL 3 ML NEB ONE
[2017-08-20] MEDS: methylPREDNISolone SOD SUCCI 125 MG/2 ML VIAL IV SCH ×4 (06:29→19:53)
[2017-08-20] MEDS: oxyCODONE-APAP 10-325MG 1 EACH TAB PO PRN ×2 (06:35→19:56)
[2017-08-20] MEDS: PANTOPRAZOLE 40 MG TABLET PO SCH (08:07)
[2017-08-20] MEDS: FORMOTEROL FUMARATE 20 MCG/2 ML NEBU INHALATION SCH ×2 (08:13→19:49)
[2017-08-20] MEDS: IPRATROPIUM-ALBUTEROL 3 ML NEB INHALATION SCH ×4 (08:13→19:49)
[2017-08-20] MEDS: BUDESONIDE 1 MG/2 ML NEBU INHALATION SCH ×2 (08:13→19:49)
[2017-08-20] MEDS: ASPIRIN 81 MG PO SCH (09:43)
[2017-08-20] MEDS: HEPARIN SODIUM,PORCINE 5,000 UNIT/ML 1 ML VIAL SQ SCH ×2 (09:43→21:52)
[2017-08-20] MEDS: LEVOFLOXACIN 500MG-D5W PMX 500 MG in DEXTROSE/WATER 1 100ML.BAG IVPB SCH (09:59)
[2017-08-20] MEDS: SODIUM CHLORIDE 0.9% 1,000 ML IV SCH ×2 (11:20→17:10)
[2017-08-20] MEDS: INSULIN ASPART 100 UNIT/ML 1 ML 10 ML VIAL SQ SCH ×3 (12:22→21:52)
[2017-08-20 12:28] LABS: Glucose,Whole Blood 118 mg/dL (75-99)
[2017-08-20] MEDS: buPROPion XL 150 MG TAB.ER.24H PO SCH (13:07)
--- NOTE | 2017-08-20 13:42 | P.CNPUL ---
History of Present Illness Consult date: 08/19/17 Requesting physician: Blake Cherry Reason for consult: dyspnea, cough, chest pain, COPD, abnormal CXR/CT Chief complaint: Increasing shortness of breath, tachycardia, tachypnea, hypoxemia History of present illness: Wicho is a 51-year-old white male patient of Dr. Reyes and Dr. Fuchs, has a past medical history positive for severe advanced oxygen-dependent chronic obstructive pulmonary disease, ongoing nicotine dependence, chronic pulmonary scarring in the upper lobes related to a history of bilateral spontaneous pneumothorax types to at a younger age requiring chest tube insertion and pleurodesis, anxiety, depression, chronic pain syndrome, macrocytic anemia, benign prostatic hypertrophy, and history of abdominal aortic aneurysm. Patient presented to the emergency department on 08/19/2017 complaints of worsening dyspnea, fatigue, decreased exercise tolerance, tachypnea and tachycardia. Patient wears oxygen at 2-3 L on the regular basis, however per EMS patient was oxygenating at about 81%. Did complain of significant chest pressure, denied any radiation, diaphoresis. Denied any nausea or vomiting. Patient had a cough, however no fever, unable to bring up any phlegm. Denied any lightheadedness, dizziness or syncopal episodes. Chest x-ray from 2017 showed stable biapical scarring, and stable diffuse pulmonary interstitial opacities, no acute process was seen. CTA chest was completed and showed no evidence for acute pulmonary embolism, advanced emphysematous changes with prominent bilateral fibrosis, evidence of right lung surgery with volume loss and old granuloma With this disease. Right upper lung acute consolidation was difficult to exclude, appear to be more prominent compared to previous CT chest studies. Patient did have a low-grade fever on presentation of 100.8F, otherwise remained afebrile while inpatient. She was in significant respiratory distress , with labored breathing, and use of accessory muscles and tachypnea, he was also tachycardic with a heart rate up to 133 bpm, tachypneic with respiratory rate up to 28 breaths per minute, but hemodynamically remains stable. Patient was recently hospitalized with a mild COPD exacerbation complicated by purulent tracheobronchitis, he was treated with oral antibiotics steroids and bronchodilators, improved and was discharged home in stable condition. Unfortunately patient continues to smoke, is spite multiple hospitalizations for COPD exacerbations and recurrent respiratory infections. She was discharged home on 08/11/2017 on oral course of Ceftin, prednisone taper, and maintenance inhalers and nebulized treatments. Blood and sputum cultures are pending at this time, patient was started on Levaquin, bronchodilator treatments , IV steroids, IV fluids and was admitted for further management. Review of Systems All systems: negative Constitutional: Reports weakness, Reports weight loss, Denies chills, Denies fever Eyes: denies blurred vision, denies pain Ears, nose, mouth and throat: Denies headache, Denies sore throat Cardiovascular: Reports dyspnea on exertion, Denies chest pain, Denies shortness of breath Respiratory: Reports congestion, Reports dyspnea, Reports home oxygen, Reports pain, Reports pain on inspiration, Reports respiratory infections, Denies cough Gastrointestinal: Denies abdominal pain, Denies diarrhea, Denies nausea, Denies vomiting Musculoskeletal: Denies myalgias Integumentary: Denies pruritus, Denies rash Neurological: Denies numbness, Denies weakness Psychiatric: Denies anxiety, Denies depression Endocrine: Denies fatigue, Denies weight change Past Medical History Past Medical History: Cancer, COPD, CVA/TIA, Liver Disease, Memory Impairment, Pneumonia, Prostate Disorder Additional Past Medical History / Comment(s): Myelodysplastic syndrome pt states diagnosed January [address] French, macrocytic anemia, weekly epogen injections, chronic hypoxic respiratory failure, home O2 at 2L/NC ATC, possible TIA 05/2017, chronic pain, vertigo at times, abdominal aortic aneurysm, bilateral spontaneous pneumothorax (left once and right twice) with chest tubes and pleurodesis, degenerative arthritis, BPH. History of Any Multi-Drug Resistant Organisms: None Reported Additional Past Surgical History / Comment(s): Bilateral pleurodesis, BMA Past Anesthesia/Blood Transfusion Reactions: No Reported Reaction Additional Past Anesthesia/Blood Transfusion Reaction / Comment(s): Pt moved here from [place] over a year ago. Was living alone in his own apartment but having difficulty caring for himself. Currently living with his cousin. He has home care thru [facility]. Has home 02 /concentrator. no pets. no past service. 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 Smoking Status: Former smoker - Past Family History Father History Unknown: Yes Mother Family Medical History: Cancer, Coronary Artery Disease (CAD) Additional Family Medical History / Comment(s): lung cancer, lymphoma. Medications and Allergies Home Medications Medication Instructions Recorded Confirmed Type Fluticasone/Salmeterol [Advair 1 puff INHALATION RT-BID 10/09/16 08/19/17 History 250-50 Diskus] Tiotropium 18 Mcg/Puff [Spiriva] 1 cap INHALATION RT-DAILY 10/09/16 08/19/17 History Montelukast [Singulair] 10 mg PO HS 01/05/17 08/19/17 History Aspirin EC [Ecotrin Low Dose] 81 mg PO DAILY #30 tablet. 05/30/17 08/19/17 Rx Atorvastatin [Lipitor] 20 mg PO HS #30 tab 05/30/17 08/19/17 Rx fentaNYL 25MCG/HR PATCH [Duragesic 1 patch TRANSDERM Q72H #5 patch 07/24/17 Rx 25MCG/HR] oxyCODONE HCL/ACETAMINOPHEN 1 tab PO Q6HR PRN #8 tab 07/24/17 08/19/17 Rx [Percocet 10-325 mg] Epoetin Joe [Procrit] 20,000 unit SQ PADILLA 08/10/17 08/19/17 History Ipratropium-Albuterol Nebulize 3 ml INHALATION RT-Q4H PRN 08/19/17 08/19/17 History [Duoneb 0.5 mg-3 mg/3 ml Soln] Levofloxacin [Levaquin] 500 mg PO DAILY 08/19/17 08/19/17 History buPROPion XL [Wellbutrin Xl] 150 mg PO DAILY 08/19/17 08/19/17 History predniSONE 20 mg PO DAILY 08/19/17 08/19/17 History Allergies Allergy/AdvReac Type Severity Reaction Status Date / Time No Known Allergies Allergy Verified 08/19/17 07:45 Physical Exam Vitals: Vital Signs Temp Pulse Pulse Resp BP Pulse Ox 08/20/17 12:00 100 08/20/17 11:49 100 08/20/17 10:43 84 20 08/20/17 08:35 102 H 08/20/17 08:24 100 08/20/17 08:23 104 H 08/20/17 08:13 100 16 08/20/17 07:00 97.3 F L 84 19 96/53 98 08/20/17 03:55 104 H 08/20/17 03:40 100 08/20/17 00:00 79 18 08/19/17 20:50 103 H 18 08/19/17 20:41 101 H 18 08/19/17 20:40 103 H 18 08/19/17 20:35 97.6 F 79 20 99/51 97 08/19/17 20:30 105 H 18 08/19/17 20:23 83 18 08/19/17 16:34 101 H 18 08/19/17 16:24 95 18 94 L 08/19/17 14:05 97.6 F 83 20 94/58 98 Intake and Output 08/19/17 08/20/17 08/20/17 22:59 06:59 14:59 Intake Total 590 Output Total 300 Balance -300 590 Intake: Oral 590 Output: Urine 300 Other: Voiding Method Urinal Urinal Urinal # Voids 1 1 - Constitutional General appearance: mild distress, thin - EENT Eyes: PERRLA, poor dentition, normal appearance ENT: NA/AT Ears: bilateral: normal - Neck Neck: no lymphadenopathy Carotids: bilateral: upstroke normal Thyroid: bilateral: normal size - Respiratory Respiratory: bilateral: diminished, wheezing, prolonged expiration - Cardiovascular Heart sounds: normal: S1, S2 leg Peripheral Edema: absent: None foot Peripheral Edema: absent: None - Gastrointestinal General gastrointestinal: no organomegaly, soft, no tenderness - Integumentary Integumentary: normal turgor, pale - Neurologic Neurologic: CNII-XII intact - Musculoskeletal Musculoskeletal: gait normal, generalized weakness, strength equal bilaterally - Psychiatric Psychiatric: A&O x's 3, appropriate affect, intact judgment & insight Results - Laboratory Findings CBC and BMP: 08/19/17 05:10 08/19/17 05:10 PT/INR, D-dimer PT 10.1 sec (9.0-12.0) 08/19/17 05:10 INR 1.0 (<1.2) 08/19/17 05:10 D-Dimer 5.16 mg/L FEU (<0.60) H 08/19/17 05:10 Abnormal lab findings: Abnormal Labs 08/19/17 08/19/17 08/19/17 05:10 05:10 05:10 RBC 3.15 L Hgb 10.0 L Hct 31.2 L RDW 18.8 H D-Dimer Chloride 97 L BUN 22 H Glucose 101 H POC Glucose (mg/dL) Total Creatine Kinase <20 L 08/19/17 08/20/17 05:10 12:15 RBC Hgb Hct RDW D-Dimer 5.16 H Chloride BUN Glucose POC Glucose (mg/dL) 118 H Total Creatine Kinase - Diagnostic Findings Chest x-ray: report reviewed, image reviewed CT scan - chest: report reviewed, image reviewed Assessment and Plan Plan: Assessment: #1. Acute on chronic hypoxic respiratory failure secondary to a possible right upper lobe pneumonia, patient presented with low-grade fever, difficulty breathing, chest wall tenderness, chest congestion. And the CTA chest showed chronic biapical scarring, however acute right upper lobe consolidation was difficult to exclude, and appeared more prominent compared to the previous CT chest #2. Acute COPD exacerbation and purulent tracheobronchitis, and the patient was recently hospitalized for a COPD exacerbation and discharged home on 2017 on oral course of Ceftin, prednisone taper and maintenance inhalers and nebulized treatments #3. Advanced COPD, oxygen dependent #4. Ongoing nicotine dependence #5. History of myelodysplastic syndrome #6. Anemia of chronic disease #7. Chronic biapical lung scarring, related to previous history of bilateral spontaneous pneumothoraxes, and pleurodesis at a younger age #8. Frequent hospitalizations for recurrent lung infections #9. History of abdominal aortic aneurysm #10. Anxiety, depression Plan: CTA chest was recommended, ordered and reviewed, and the appearance of the biapical scarring suggest an acute right upper lobe consolidation, possibly related to acute pneumonia. Keep the current antibiotic coverage with Levaquin , continue with bronchodilator treatments, IV steroids. Considering patient's significant pulmonary scarring, and recurrent lung infections, possibility of pseudomonal pneumonia needs to be considered. We will proceed with bronchoscopy with BAL on 08/20/[address] Salinas. Continue current antibiotic treatment. Further recommendations will follow, nicotine cessation was strongly encouraged once again. Dietary consult was requested. I performed a history & physical examination of the patient and discussed their management with my nurse practitioner, Corie Dasilva. I reviewed the nurse practitioner's note and agree with the documented findings and plan of care. Lung sounds are positive for diffuse wheezes and prolongation of the expiratory phase. The findings and the impression was discussed with the patient. I attest to the documentation by the nurse practitioner. Time with Patient: Greater than 30
--- NOTE | 2017-08-20 13:49 | P.PN ---
Subjective Progress Note Date: 08/20/17 Principal diagnosis: Acute right upper lobe solid patient, possibly gram-negative pneumonia, possibly healthcare acquired Wicho is a 51-year-old white male patient of Dr. Reyes and Dr. Fuchs, has a past medical history positive for severe advanced oxygen-dependent chronic obstructive pulmonary disease, ongoing nicotine dependence, chronic pulmonary scarring in the upper lobes related to a history of bilateral spontaneous pneumothorax types to at a younger age requiring chest tube insertion and pleurodesis, anxiety, depression, chronic pain syndrome, macrocytic anemia, benign prostatic hypertrophy, and history of abdominal aortic aneurysm. Patient presented to the emergency department on 08/19/2017 complaints of worsening dyspnea, fatigue, decreased exercise tolerance, tachypnea and tachycardia. Patient wears oxygen at 2-3 L on the regular basis, however per EMS patient was oxygenating at about 81%. Did complain of significant chest pressure, denied any radiation, diaphoresis. Denied any nausea or vomiting. Patient had a cough, however no fever, unable to bring up any phlegm. Denied any lightheadedness, dizziness or syncopal episodes. Chest x-ray from 2017 showed stable biapical scarring, and stable diffuse pulmonary interstitial opacities, no acute process was seen. CTA chest was completed and showed no evidence for acute pulmonary embolism, advanced emphysematous changes with prominent bilateral fibrosis, evidence of right lung surgery with volume loss and old granuloma With this disease. Right upper lung acute consolidation was difficult to exclude, appear to be more prominent compared to previous CT chest studies. Patient did have a low-grade fever on presentation of 100.8F, otherwise remained afebrile while inpatient. She was in significant respiratory distress , with labored breathing, and use of accessory muscles and tachypnea, he was also tachycardic with a heart rate up to 133 bpm, tachypneic with respiratory rate up to 28 breaths per minute, but hemodynamically remains stable. Patient was recently hospitalized with a mild COPD exacerbation complicated by purulent tracheobronchitis, he was treated with oral antibiotics steroids and bronchodilators, improved and was discharged home in stable condition. Unfortunately patient continues to smoke, is spite multiple hospitalizations for COPD exacerbations and recurrent respiratory infections. She was discharged home on 08/11/2017 on oral course of Ceftin, prednisone taper, and maintenance inhalers and nebulized treatments. Blood and sputum cultures are pending at this time, patient was started on Levaquin, bronchodilator treatments , IV steroids, IV fluids and was admitted for further management. On 08/20/2017 patient seen in follow-up on medical surgical floor. Remains very dyspneic with any exertion, denies any phlegm production, does have frequent nonproductive congested cough. Lung sounds are positive for some scattered rales over left lower lobe, there is prolongation of expiratory phase. Afebrile overnight, vital signs are stable, currently on 4 L per nasal cannula with O2 sat at 98%. Hemodynamically stable, less tachycardic on today' s exam, with a heart rate up to 104 BPM. Overall improving, patient is being treated with empiric antibiotics in the form of Levaquin, IV steroids, and bronchodilator treatments. The plan is to proceed with bronchoscopy with BAL for lower respiratory tract sputum samples. The patient has been nothing by mouth since midnight, and a procedure scheduled for follow-up [address] Salinas Objective - Vital Signs Vital signs: Vital Signs Temp 97.3 F L 08/20/17 07:00 Pulse 100 08/20/17 12:00 Resp 20 08/20/17 10:43 BP 96/53 08/20/17 07:00 Pulse Ox 98 08/20/17 07:00 Intake & Output 08/19/17 08/20/17 08/20/17 18:59 06:59 18:59 Intake Total 450 590 Output Total 300 300 Balance 150 290 Weight 61.235 kg Intake: Intake, IV Titration 450 Amount Levofloxacin 500Mg-D5w 450 Pmx 500 mg In Dextrose/ Water 1 100ml.bag @ 100 mls/hr IVPB Q24H [facility] Rx#: [id number] Oral 590 Output: Urine 300 300 Other: Voiding Method Urinal Urinal # Voids 1 - Exam - Constitutional General appearance: mild distress, thin - EENT Eyes: PERRLA, poor dentition, normal appearance ENT: NA/AT Ears: bilateral: normal - Neck Neck: no lymphadenopathy Carotids: bilateral: upstroke normal Thyroid: bilateral: normal size - Respiratory Respiratory: bilateral: diminished, prolonged expiration, some scattered rales over left lower lobe - Cardiovascular Heart sounds: normal: S1, S2 leg Peripheral Edema: absent: None foot Peripheral Edema: absent: None - Gastrointestinal General gastrointestinal: no organomegaly, soft, no tenderness - Integumentary Integumentary: normal turgor, pale - Neurologic Neurologic: CNII-XII intact - Musculoskeletal Musculoskeletal: gait normal, generalized weakness, strength equal bilaterally - Psychiatric Psychiatric: A&O x's 3, appropriate affect, intact judgment & insight - Labs CBC & Chem 7: 08/19/17 05:10 08/19/17 05:10 Labs: Abnormal Lab Results - Last 24 Hours (Table) 08/20/17 Range/Units 12:15 POC Glucose (mg/dL) 118 H (75-99) mg/dL Microbiology - Last 24 Hours (Table) 08/19/17 20:52 Gram Stain - Final Sputum Sputum Culture - Final 08/19/17 05:10 Blood Culture - Preliminary Blood No Growth after 24 hours Assessment and Plan Plan: Assessment: #1. Acute on chronic hypoxic respiratory failure secondary to a possible right upper lobe pneumonia, patient presented with low-grade fever, difficulty breathing, chest wall tenderness, chest congestion. And the CTA chest showed chronic biapical scarring, however acute right upper lobe consolidation was difficult to exclude, and appeared more prominent compared to the previous CT chest #2. Acute COPD exacerbation and purulent tracheobronchitis, and the patient was recently hospitalized for a COPD exacerbation and discharged home on 2017 on oral course of Ceftin, prednisone taper and maintenance inhalers and nebulized treatments #3. Advanced COPD, oxygen dependent #4. Ongoing nicotine dependence #5. History of myelodysplastic syndrome #6. Anemia of chronic disease #7. Chronic biapical lung scarring, related to previous history of bilateral spontaneous pneumothoraxes, and pleurodesis at a younger age #8. Frequent hospitalizations for recurrent lung infections #9. History of abdominal aortic aneurysm #10. Anxiety, depression Plan: Continue with current medical treatment, continue current antibiotic coverage with Levaquin, IV steroids. Patient has been afebrile overnight, no fever, no chills, still has some chest discomfort, particularly with coughing, less tachypneic less tachycardic on today's exam. Remains dyspneic with any exertion. We'll proceed with bronchoscopy with BAL by Dr. Salinas today at 1: 45 PM. Further recommendations will follow I performed a history & physical examination of the patient and discussed their management with my nurse practitioner, Corie Dasilva. I reviewed the nurse practitioner's note and agree with the documented findings and plan of care. Lung sounds are positive for left lower lobe crackles, and prolongation of the expiratory phase. The findings and the impression was discussed with the patient. I attest to the documentation by the nurse practitioner. Time with Patient: Less than 30
[2017-08-20] MEDS ORDERED: LIDOCAINE 1% INJ 10MG/ML (20 ML MDV) ONE (13:52)
[2017-08-20] MEDS ORDERED: PROPOFOL 10 MG/ML 20 ML VIAL IV ONE (13:52)
[2017-08-20] MEDS ORDERED: IV FLUID CONTINUATION 1,000 ML IV ONE (13:55)
--- NOTE | 2017-08-20 14:12 | P.PCN ---
Date of Procedure: 08/20/17 Preoperative Diagnosis: Right upper lobe pneumonia Postoperative Diagnosis: Right upper lobe pneumonia Procedure(s) Performed: Bronchoscopy, bronchial alveolar lavage of the right upper lobe Anesthesia: MAC Surgeon: Efraín Salinas Estimated Blood Loss (ml): 0 Pathology: other Condition: stable Disposition: floor Operative Findings: 51-year-old male patient with extensive bullous emphysema and right upper lobe consolidation. The patient was having frequent hospitalization for COPD exacerbation and the patient had worsening consolidation of the right upper lobe. Based on all this, and based on ongoing weight loss, a bronchoscopy and the right upper lobe bronchial lavage was done This procedure was performed in the bronchoscopy unit. The patient received a total of 120 mg of propofol. After achieving adequate sedation, the flexible bronchoscope was inserted through the left nostril was advanced upper airway. Examination of the pharynx, larynx, epiglottis, arytenoids, vocal cords was done and all of this upper airway structures were within normal limits. The vocal cords were symmetrical in the midline without any lesions or nodules. A total of 2 mL of 1% lidocaine was applied to the vocal cords and following that the bronchoscope was advanced into the upper trachea. Examination trachea bronchial tree was done. There was mild component of tracheal bronchomalacia. There was no acute white rest or secretions occupying the airways more so in the anterior segment and the posterior segment of the right upper lobe. Therapeutic it airway suctioning was done. The visualized airways included the main trachea, bilateral mainstem bronchi, right upper lobe bronchus along with various segments, right middle lobe bronchus along with various segments, right lower lobe bronchus along fairly segments, left upper lobe bronchus and left lower lobe bronchus along with various segments and subsegments. Therapeutic airway suctioning was done and following that the bronchoscope was wedged in the anterior segment of the right upper lobe where a total of 80 mL of fluid was infused and 30 mL was suctioned back. The aspirate was nonbloody and was cloudy and foamy. At the end of the procedure, the airways inspection was completed and there was no other bronchial lesions or tumors identified. The bronchoscope was removed and the patient was transferred back to his abdomen is stable condition. No oxygen desaturations encountered during the procedure. No hemodynamic instability. No other complaints otherwise. The samples will be sent for microbial analysis.
[2017-08-20] MEDS ORDERED: ALBUTEROL NEBULIZED 2.5 MG/3 ML INHALATION STA (14:18)
[2017-08-20] MEDS ORDERED: ALBUTEROL SULFATE 5 MG/ML INHALATION ONE (14:24)
[2017-08-20] MEDS: PROMETHAZINE INJ 25 MG/ML 1 ML VIAL IVPB ONE ×2 (14:29→14:35)
[2017-08-20] MEDS ORDERED: LIDOCAINE 2% (PF) 20 MG/ML 10 ML AMP INHALATION STA (14:46)
--- NOTE | 2017-08-20 17:49 | P.PN ---
Progress Note - Text Progress Note Date: 08/20/17 The patient completed the procedure without any significant complication. Postop and within 20 minutes, the patient started having increased cough and the patient continued to have frequent coughing spells to the point where the patient was unable to take a breath in between and this estimated him quite uncomfortable and hypoxic. He was placed on a face mask. He was given IV promethazine a total of 12.5 mg and subsequently was given nebulized Xylocaine treatment. He continued to be short of breath and based on that he got transferred to the intensive care unit for further monitoring. By the time he got up to the ICU was more comfortable and he was on 47 oxygen nasal cannula. Chest x-ray showed no evidence of any pneumothorax. And there is chronic consolidation of the right upper lobe in addition to some new infiltration of the right lower lobe. Zosyn was added. He is also on examination bronchodilators and systemic steroids. He'll be monitored in intensive care unit.
[2017-08-20 18:31] LABS: Glucose,Whole Blood 139 mg/dL (75-99)
[2017-08-20 19:29] LABS: Appearance,BF Cloudy; Color,BF Colorless; Nucleated Cells, Body Fluid 2975 /uL
[2017-08-20 19:30] LABS: Polynuclear WBC,Body Fluid 95 %; RBC, Body Fluid 1280 /uL
[2017-08-20 19:31] LABS: Mononuclear WBC,Body Fluid 5 %
[2017-08-20] MEDS: PIPERACILLIN-TAZOBACTAM 3.375 GM in DEXTROSE/WATER 1 50ML.BAG IVPB SCH (19:52)
[2017-08-20 20:58] LABS: Glucose,Whole Blood 182 mg/dL (75-99)
[2017-08-20 21:52] LABS: Hemoglobin A1C 4.9 % (4.0-6.0)
[2017-08-20] MEDS: ATORVASTATIN 20 MG TAB PO SCH (21:52)
[2017-08-20] MEDS: MONTELUKAST 10 MG TAB PO SCH (21:52)
--- NOTE | 2017-08-20 23:06 | PN ---
PROGRESS NOTE DATE OF SERVICE: 08/20/2012 This 51-year-old gentleman admitted with COPD exacerbation as well as tracheobronchitis and failure of outpatient treatment underwent bronchoscopy by Dr. Salinas. Patient was briefly monitored in the ICU. The bronchoscopy for worsening right upper lobe pneumonia. No chest pain. No palpitations. No fever. EXAM: Alert and oriented x3. The pulse is 90, blood pressure is 108/56, respirations 18, temperature 97.4, pulse ox 98% on 4L. HEENT: Conjunctivae normal. Oral mucosa moist. NECK: No jugular venous distention. No carotid bruits. No lymph node enlargement. CARDIOVASCULAR: S1, S2 muffled. No S3, S4. RESPIRATORY: Breath sounds diminished in the bases. Bilateral scattered rhonchi and expiratory wheezing, also. A few crackles. ABDOMEN: Soft, nontender. No mass palpable. LEGS: No edema. No swelling. NERVOUS SYSTEM: Higher functions as mentioned earlier. Moves all 4 limbs. No focal motor or sensory deficits. LYMPHATIC: No lymphadenopathy in neck or axillae. SKIN: No ulcer, rash or bleeding. LAB STUDIES: WBC 6, hemoglobin is 10. ASSESSMENT: 1. Chronic obstructive pulmonary disease acute exacerbation with right upper lobe pneumonia, possibly gram-negative with acute on chronic hypoxic respiratory failure, status post bronchoscopy. 2. Normocytic anemia of chronic disease. 3. History of nicotine dependence. 4. History of dementia. 5. History of pneumonia. 6. History of myelodysplastic syndrome. 7. History of chronic hypoxic respiratory failure. 8. History of vertigo. 9. History of bilateral spontaneous pneumothorax. 10.History abdominal aortic aneurysm. 11.History of bilateral pleurodesis. 12.Anxiety, depression. 13.FULL CODE. RECOMMENDATIONS AND DISCUSSION: Recommend to continue current medical management and symptomatic treatment. Otherwise at this time, I would recommend continue with the broad-spectrum IV antibiotics. Obtain the cultures. Closely follow with sondra Slater. Guarded prognosis. Further recommendations to follow. MMODL / IJN: [id number] /
[2017-08-21] MEDS: methylPREDNISolone SOD SUCCI 125 MG/2 ML VIAL IV SCH ×4 (00:20→17:44)
[2017-08-21] MEDS: PIPERACILLIN-TAZOBACTAM 3.375 GM in DEXTROSE/WATER 1 50ML.BAG IVPB SCH ×3 (00:20→17:00)
[2017-08-21] MEDS: oxyCODONE-APAP 10-325MG 1 EACH TAB PO PRN ×4 (02:14→21:03)
[2017-08-21] MEDS: SODIUM CHLORIDE 0.9% 1,000 ML IV SCH (06:20)
[2017-08-21 07:07] LABS: Glucose,Whole Blood 117 mg/dL (75-99)
[2017-08-21] MEDS: PANTOPRAZOLE 40 MG TABLET PO SCH (07:35)
[2017-08-21] MEDS: INSULIN ASPART 100 UNIT/ML 1 ML 10 ML VIAL SQ SCH ×4 (07:48→20:03)
[2017-08-21 07:49] LABS: Anion Gap 9 mmol/L; Blood Urea Nitrogen 24 mg/dL (9-20); Calcium 8.4 mg/dL (8.4-10.2); Carbon Dioxide 28 mmol/L (22-30); Chloride 104 mmol/L (98-107); Glucose 99 mg/dL (74-99); Sodium 141 mmol/L (137-145)
--- NOTE | 2017-08-21 07:52 | XR ---
EXAMINATION TYPE: XR chest 1V portable DATE OF EXAM: 08/20/2017 COMPARISON: 08/19/2017 INDICATION: Post bronchoscopy TECHNIQUE: Single frontal view of the chest is obtained. FINDINGS: The heart size is normal. The pulmonary vasculature is normal. There are diffuse scattered increased lung markings to the right lung, especially in the right upper lobe. Pattern appears stable. Postsurgical changes at the right apex. No pneumothorax is evident pos t bronchoscopy. Minimal left pleural effusion may be present. Some mild infiltrate is at the left bas e. Consider pulmonary fibrosis within the differential. IMPRESSION: 1. No pneumothorax post bronchoscopy. 2. Diffuse increased lung markings more focal in the right upper lobe.
[2017-08-21] MEDS: IPRATROPIUM-ALBUTEROL 3 ML NEB INHALATION SCH ×4 (08:09→19:26)
[2017-08-21] MEDS: BUDESONIDE 1 MG/2 ML NEBU INHALATION SCH ×2 (08:09→19:26)
[2017-08-21] MEDS: FORMOTEROL FUMARATE 20 MCG/2 ML NEBU INHALATION SCH ×2 (08:09→19:26)
[2017-08-21] MEDS: buPROPion XL 150 MG TAB.ER.24H PO SCH (08:10)
[2017-08-21] MEDS: HEPARIN SODIUM,PORCINE 5,000 UNIT/ML 1 ML VIAL SQ SCH ×2 (08:10→20:03)
[2017-08-21] MEDS: ASPIRIN 81 MG PO SCH (08:10)
[2017-08-21 08:14] LABS: Anisocytosis Slight; Basophils % (A) 0 %; Eosinophils % (A) 0 %; HCT 22.5 % (39.0-53.0); Hypochromasia Moderate; Lymphocytes # (A) 0.6 k/uL (1.0-4.8); Lymphocytes % (A) 11 %; MCH 31.9 pg (25.0-35.0); MCV 102.8 fL (80.0-100.0); Macrocytosis Moderate; Monocytes # (A) 0.2 k/uL (0-1.0); Monocytes % (A) 4 %; Neutrophils # (A) 4.6 k/uL (1.3-7.7); Neutrophils % (A) 82 %; Platelet Count 311 k/uL (150-450); Poikilocytosis Slight; RBC 2.19 m/uL (4.30-5.90); RDW 18.6 % (11.5-15.5); WBC 5.6 k/uL (3.8-10.6)
[2017-08-21] MEDS: LEVOFLOXACIN 500MG-D5W PMX 500 MG in DEXTROSE/WATER 1 100ML.BAG IVPB SCH (09:50)
[2017-08-21] MEDS: DOCUSATE 100 MG CAP PO SCH ×2 (09:58→20:03)
[2017-08-21 11:16] LABS: Glucose,Whole Blood 135 mg/dL (75-99)
--- NOTE | 2017-08-21 13:49 | P.PN ---
Subjective Progress Note Date: 08/21/17 Wicho is a 51-year-old white male patient of Dr. Reyes and Dr. Fuchs, has a past medical history positive for severe advanced oxygen-dependent chronic obstructive pulmonary disease, ongoing nicotine dependence, chronic pulmonary scarring in the upper lobes related to a history of bilateral spontaneous pneumothorax types to at a younger age requiring chest tube insertion and pleurodesis, anxiety, depression, chronic pain syndrome, macrocytic anemia, benign prostatic hypertrophy, and history of abdominal aortic aneurysm. Patient presented to the emergency department on 08/19/2017 complaints of worsening dyspnea, fatigue, decreased exercise tolerance, tachypnea and tachycardia. Patient wears oxygen at 2-3 L on the regular basis, however per EMS patient was oxygenating at about 81%. Did complain of significant chest pressure, denied any radiation, diaphoresis. Denied any nausea or vomiting. Patient had a cough, however no fever, unable to bring up any phlegm. Denied any lightheadedness, dizziness or syncopal episodes. Chest x-ray from 2017 showed stable biapical scarring, and stable diffuse pulmonary interstitial opacities, no acute process was seen. CTA chest was completed and showed no evidence for acute pulmonary embolism, advanced emphysematous changes with prominent bilateral fibrosis, evidence of right lung surgery with volume loss and old granuloma With this disease. Right upper lung acute consolidation was difficult to exclude, appear to be more prominent compared to previous CT chest studies. Patient did have a low-grade fever on presentation of 100.8F, otherwise remained afebrile while inpatient. She was in significant respiratory distress , with labored breathing, and use of accessory muscles and tachypnea, he was also tachycardic with a heart rate up to 133 bpm, tachypneic with respiratory rate up to 28 breaths per minute, but hemodynamically remains stable. Patient was recently hospitalized with a mild COPD exacerbation complicated by purulent tracheobronchitis, he was treated with oral antibiotics steroids and bronchodilators, improved and was discharged home in stable condition. Unfortunately patient continues to smoke, is spite multiple hospitalizations for COPD exacerbations and recurrent respiratory infections. She was discharged home on 08/11/2017 on oral course of Ceftin, prednisone taper, and maintenance inhalers and nebulized treatments. Blood and sputum cultures are pending at this time, patient was started on Levaquin, bronchodilator treatments , IV steroids, IV fluids and was admitted for further management. On 08/20/2017 patient seen in follow-up on medical surgical floor. Remains very dyspneic with any exertion, denies any phlegm production, does have frequent nonproductive congested cough. Lung sounds are positive for some scattered rales over left lower lobe, there is prolongation of expiratory phase. Afebrile overnight, vital signs are stable, currently on 4 L per nasal cannula with O2 sat at 98%. Hemodynamically stable, less tachycardic on today' s exam, with a heart rate up to 104 BPM. Overall improving, patient is being treated with empiric antibiotics in the form of Levaquin, IV steroids, and bronchodilator treatments. The plan is to proceed with bronchoscopy with BAL for lower respiratory tract sputum samples. The patient has been nothing by mouth since midnight, and a procedure scheduled for follow-up [address] Salinas On 08/21/2017 the patient is being seen in follow-up. The patient underwent a bronchoscopy and bronchial alveolar lavage of the right upper lobe yesterday. Following the procedure the patient had vigorous cough and. This caused significant amount of distress and oxygen desaturation. The patient had to be moved intensive care unit for further monitoring. Immediately after he arrived to the intensive care unit the patient felt better and his cough subsided and his heart rate and respiratory rate improved and he was actually taking that was somewhat between 3-4 L of oxygen by nasal cannula. His chest x-ray showed no evidence of any pneumothorax. A son that, the patient got transferred back to his medical floor. On today's evaluation, he is essentially the same. Still feeling slightly better compared to yesterday. No frequent coughing spells. No fever or chills. Remains in the same antibiotic coverage which included a combination of Levaquin and Zosyn and I'm awaiting the results of the bronchioloalveolar lavage was collected yesterday during bronchoscopy. No hemoptysis. No pleurisy. No chest pain. No other complaints otherwise. Noted the chest x-ray was done immediately after the bronchoscopy showed no evidence of any pneumothorax and there was a right upper lobe consolidation and a new right lower lobe infiltrate. No leukocytosis. His hemoglobin is at 7.0 and the patient has a significant drop compared to yesterday and this is to be followed up as the patient does not have any pulmonary bleeding or any gastrointestinal bleeding. There is an obvious 3 g drop in hemoglobin that needs to be washed 4 and hemoglobin is to be repeated. Objective - Vital Signs Vital signs: Vital Signs Temp 97.8 F 08/21/17 07:00 Pulse 100 08/21/17 11:59 Resp 17 08/21/17 09:24 BP 99/58 08/21/17 07:00 Pulse Ox 95 08/21/17 07:00 Intake & Output 08/20/17 08/21/17 08/21/17 18:59 06:59 18:59 Intake Total 800 0 Output Total 350 350 Balance 450 -350 Weight 61.235 kg Intake: IV 650 Intake, IV Titration 150 Amount Sodium Chloride 0.9% 1, 150 000 ml @ 75 mls/hr IV . [id number] [facility] Rx#:[id number] Blood Product 0 Rc Pheresis 2 As3 Unit 0 [id number] Output: Urine 350 350 Other: Voiding Method Urinal Urinal # Voids 4 1 2 # Bowel Movements 0 - Exam - Constitutional General appearance: mild distress, thin - EENT Eyes: PERRLA, poor dentition, normal appearance ENT: NA/AT Ears: bilateral: normal - Neck Neck: no lymphadenopathy Carotids: bilateral: upstroke normal Thyroid: bilateral: normal size - Respiratory Respiratory: bilateral: diminished, prolonged expiration, some scattered rales over left lower lobe - Cardiovascular Heart sounds: normal: S1, S2 leg Peripheral Edema: absent: None foot Peripheral Edema: absent: None - Gastrointestinal General gastrointestinal: no organomegaly, soft, no tenderness - Integumentary Integumentary: normal turgor, pale - Neurologic Neurologic: CNII-XII intact - Musculoskeletal Musculoskeletal: gait normal, generalized weakness, strength equal bilaterally - Psychiatric Psychiatric: A&O x's 3, appropriate affect, intact judgment & insight - Labs CBC & Chem 7: 08/21/17 07:04 08/21/17 07:04 Labs: Abnormal Lab Results - Last 24 Hours (Table) 08/20/17 08/20/17 08/21/17 Range/Units 18:19 20:55 07:04 RBC 2.19 L (4.30-5.90) m/uL Hgb 7.0 L* D (13.0-17.5) gm/dL Hct 22.5 L (39.0-53.0) % MCV 102.8 H (80.0-100.0) fL RDW 18.6 H (11.5-15.5) % Lymphocytes # 0.6 L (1.0-4.8) k/uL BUN (9-20) mg/dL POC Glucose (mg/dL) 139 H 182 H (75-99) mg/dL Crossmatch 08/21/17 08/21/17 08/21/17 Range/Units 07:04 07:06 10:59 RBC (4.30-5.90) m/uL Hgb (13.0-17.5) gm/dL Hct (39.0-53.0) % MCV (80.0-100.0) fL RDW (11.5-15.5) % Lymphocytes # (1.0-4.8) k/uL BUN 24 H (9-20) mg/dL POC Glucose (mg/dL) 117 H (75-99) mg/dL Crossmatch See Detail 08/21/17 Range/Units 11:14 RBC (4.30-5.90) m/uL Hgb (13.0-17.5) gm/dL Hct (39.0-53.0) % MCV (80.0-100.0) fL RDW (11.5-15.5) % Lymphocytes # (1.0-4.8) k/uL BUN (9-20) mg/dL POC Glucose (mg/dL) 135 H (75-99) mg/dL Crossmatch Microbiology - Last 24 Hours (Table) 08/19/17 20:52 Gram Stain - Final Sputum Sputum Culture - Final 08/19/17 05:10 Blood Culture - Preliminary Blood No Growth after 48 hours 08/20/17 14:10 Gram Stain - Preliminary Bronchial Washings - Right Bronchial Washings Culture - Preliminary 08/20/17 14:10 Fungal Culture - Preliminary Bronchial Washings - Right 08/20/17 14:10 Acid Fast Bacilli Culture - Preliminary Bronchial Washings - Right Assessment and Plan Plan: #1. Acute on chronic hypoxic respiratory failure secondary to a possible right upper lobe pneumonia, patient presented with low-grade fever, difficulty breathing, chest wall tenderness, chest congestion. And the CTA chest showed chronic biapical scarring, however acute right upper lobe consolidation was difficult to exclude, and appeared more prominent compared to the previous CT chest based on all this, the patient was placed on broad-spectrum antibiotics and currently is on a combination of Zosyn and Levaquin. Bronchoscopy and bronchial lavage of the right upper lobe was done yesterday and we are still awaiting the results of the cultures. Post bronchoscopy the patient developed some cough with subsequently recovered and the patient's pulmonary status back to his baseline. #2. Acute COPD exacerbation and purulent tracheobronchitis, and the patient was recently hospitalized for a COPD exacerbation and discharged home on 2017 on oral course of Ceftin, prednisone taper and maintenance inhalers and nebulized treatments #3. Advanced COPD, oxygen dependent #4. Ongoing nicotine dependence #5. History of myelodysplastic syndrome, with interval drop in hemoglobin down to 7 without evidence of any bleeding and this is to be monitored. #6. Anemia of chronic disease #7. Chronic biapical lung scarring, related to previous history of bilateral spontaneous pneumothoraxes, and pleurodesis at a younger age #8. Frequent hospitalizations for recurrent lung infections #9. History of abdominal aortic aneurysm #10. Anxiety, depression Plan Monitor the hemoglobin. Repeat the level and transfuse accordingly if needed. Awaiting the results of the bronchioloalveolar lavage. Keep same antibiotic coverage. Pulmonary status is stable for now. Continue bronchodilators. Continue steroids. We'll continue to follow. The daughter was informed about the results of the bronchoscopy yesterday over the phone.
[2017-08-21 17:29] LABS: Glucose,Whole Blood 170 mg/dL (75-99)
[2017-08-21 18:06] LABS: Anisocytosis Slight; Basophils % (A) 0 %; Eosinophils % (A) 0 %; HCT 25.5 % (39.0-53.0); HGB 8.1 gm/dL (13.0-17.5); Hypochromasia Moderate; Lymphocytes # (A) 0.4 k/uL (1.0-4.8); Lymphocytes % (A) 9 %; MCH 31.6 pg (25.0-35.0); MCHC 31.8 g/dL (31.0-37.0); MCV 99.1 fL (80.0-100.0); Macrocytosis Moderate; Monocytes # (A) 0.2 k/uL (0-1.0); Monocytes % (A) 4 %; Neutrophils # (A) 4.2 k/uL (1.3-7.7); Neutrophils % (A) 85 %; Platelet Count 294 k/uL (150-450); Poikilocytosis Slight; RBC 2.58 m/uL (4.30-5.90); RDW 19.9 % (11.5-15.5); WBC 4.9 k/uL (3.8-10.6)
--- NOTE | 2017-08-21 18:55 | P.PN ---
Subjective Progress Note Date: 08/21/17 Progress note being dictated for Dr. Cherry. Interval history: This is a 51-year-old gentleman admitted with acute COPD exacerbation, tracheobronchitis, status post bronchoscopy. Bronchoscopy cultures pending. Maintained on Zosyn, Levaquin. Breathing improving. Denies chest pain, palpitations or increasing shortness of breath. Patient's hemoglobin dropped to 7.0, symptomatic and receiving one unit of packed RBCs. Objective - Vital Signs Vital signs: Vital Signs Temp 97.4 F L 08/21/17 17:01 Pulse 95 08/21/17 17:01 Resp 16 08/21/17 17:01 BP 106/55 08/21/17 17:01 Pulse Ox 99 08/21/17 17:01 Intake & Output 08/20/17 08/21/17 08/21/17 18:59 06:59 18:59 Intake Total 800 620 Output Total 350 350 Balance 450 270 Weight 61.235 kg Intake: IV 650 Intake, IV Titration 150 Amount Sodium Chloride 0.9% 1, 150 000 ml @ 75 mls/hr IV . [id number] [facility] Rx#:[id number] Blood Product 620 Rc Pheresis 2 As3 Unit 310 [id number] Output: Urine 350 350 Other: Voiding Method Urinal Urinal # Voids 4 1 3 # Bowel Movements 0 - Exam PHYSICAL EXAM: VITAL SIGNS: As above GENERAL: Sitting up in bed, no acute distress HEENT: Conjunctivae normal. eyes normal. NECK: No JVD. No thyroid enlargement. No LNs CARDIOVASCULAR: S1, S2 muffled. No murmur RESPIRATION: Breath sounds diminished in the bases. No rhonchi, fine bibasilar crackles, greater on the left. ABDOMEN: Soft, nontender . No guarding. no masses palpable. Bowel sounds heard. LEGS: No edema. no swelling PSYCHIATRY: Alert and oriented -3, mood and affect normal. NERVOUS SYSTEM: Cranial N 2-12 grossly normal. Moves all 4 limbs. Diffuse weakness No focal deficits. Skin: no ulcer no rash Joints: No active swelling. No inflammation. Lymphatic system. No LN neck axilla or groin. - Labs CBC & Chem 7: 08/21/17 17:47 08/21/17 07:04 Labs: Abnormal Lab Results - Last 24 Hours (Table) 04/08/21/17 08/21/17 Range/Units 20:55 07:04 07:04 RBC 2.19 L (4.30-5.90) m/uL Hgb 7.0 L* D (13.0-17.5) gm/dL Hct 22.5 L (39.0-53.0) % MCV 102.8 H (80.0-100.0) fL RDW 18.6 H (11.5-15.5) % Lymphocytes # 0.6 L (1.0-4.8) k/uL BUN 24 H (9-20) mg/dL POC Glucose (mg/dL) 182 H (75-99) mg/dL Crossmatch 08/21/17 08/21/17 08/21/17 Range/Units 07:06 10:59 11:14 RBC (4.30-5.90) m/uL Hgb (13.0-17.5) gm/dL Hct (39.0-53.0) % MCV (80.0-100.0) fL RDW (11.5-15.5) % Lymphocytes # (1.0-4.8) k/uL BUN (9-20) mg/dL POC Glucose (mg/dL) 117 H 135 H (75-99) mg/dL Crossmatch See Detail 08/21/17 08/21/17 Range/Units 17:27 17:47 RBC 2.58 L (4.30-5.90) m/uL Hgb 8.1 L (13.0-17.5) gm/dL Hct 25.5 L (39.0-53.0) % MCV (80.0-100.0) fL RDW 19.9 H (11.5-15.5) % Lymphocytes # 0.4 L (1.0-4.8) k/uL BUN (9-20) mg/dL POC Glucose (mg/dL) 170 H (75-99) mg/dL Crossmatch Microbiology - Last 24 Hours (Table) 08/19/17 20:52 Gram Stain - Final Sputum Sputum Culture - Final 08/19/17 05:10 Blood Culture - Preliminary Blood No Growth after 48 hours 08/20/17 14:10 Gram Stain - Preliminary Bronchial Washings - Right Bronchial Washings Culture - Preliminary 08/20/17 14:10 Fungal Culture - Preliminary Bronchial Washings - Right 08/20/17 14:10 Acid Fast Bacilli Culture - Preliminary Bronchial Washings - Right Assessment and Plan Assessment: 1. Acute COPD exacerbation right upper lobe pneumonia, possibly gram-negative with acute on chronic hypoxic respiratory failure. 2. Normocytic anemia of chronic disease 3. Ongoing nicotine dependence 4. History of dementia 5. History of myelodysplastic syndrome 6. Chronic hypoxic respiratory failure 7. History of bilateral spontaneous pneumothoraxes and pleurodesis 8. History of abdominal aortic aneurysm 9. Anxiety, depression. Plan: Continue on current medication regime ,monitoring and symptomatic treatment. Transfusing 1 unit for symptomatic anemia. Close monitoring of hemoglobin with repeat labs ordered for a.m. maintain IV antibiotics, nebulized bronchodilators, steroids. Await bronchoscopy/lavage culture results. Follow closely with pulmonary. Further recommendations to follow. The impression and plan of care has been dictated as directed. : I performed a history and examination of this patient, discussed the same with the dictator. I agree with the dictator's note ,documented as a scribe. Any additional findings or plans will be noted.
[2017-08-21 19:55] LABS: Glucose,Whole Blood 139 mg/dL (75-99)
[2017-08-21] MEDS: ATORVASTATIN 20 MG TAB PO SCH (20:03)
[2017-08-21] MEDS: MONTELUKAST 10 MG TAB PO SCH (20:03)
[2017-08-21] MEDS: IPRATROPIUM-ALBUTEROL 3 ML NEB INHALATION PRN (23:16)
[2017-08-22] MEDS: methylPREDNISolone SOD SUCCI 125 MG/2 ML VIAL IV SCH ×2 (00:06→05:24)
[2017-08-22] MEDS: PIPERACILLIN-TAZOBACTAM 3.375 GM in DEXTROSE/WATER 1 50ML.BAG IVPB SCH ×4 (00:06→23:43)
[2017-08-22] MEDS: oxyCODONE-APAP 10-325MG 1 EACH TAB PO PRN ×4 (02:50→21:34)
[2017-08-22] MEDS: SODIUM CHLORIDE 0.9% 1,000 ML IV SCH (03:29)
[2017-08-22] MEDS: IPRATROPIUM-ALBUTEROL 3 ML NEB INHALATION PRN (04:04)
[2017-08-22] MEDS: MAGNESIUM HYDROXIDE 2,400 MG/10 ML CUP PO PRN (05:24)
[2017-08-22 07:32] LABS: Glucose,Whole Blood 137 mg/dL (75-99)
[2017-08-22 08:14] LABS: Anisocytosis Moderate; Basophils % (A) 0 %; Eosinophils % (A) 0 %; HCT 28.3 % (39.0-53.0); HGB 8.7 gm/dL (13.0-17.5); Hypochromasia Marked; Lymphocytes # (A) 0.5 k/uL (1.0-4.8); Lymphocytes % (A) 10 %; MCH 30.9 pg (25.0-35.0); MCHC 30.8 g/dL (31.0-37.0); MCV 100.1 fL (80.0-100.0); Macrocytosis Moderate; Mean Platelet Volume 7.7; Monocytes # (A) 0.2 k/uL (0-1.0); Monocytes % (A) 5 %; Neutrophils # (A) 3.9 k/uL (1.3-7.7); Neutrophils % (A) 83 %; Platelet Count 303 k/uL (150-450); Poikilocytosis Slight; RBC 2.82 m/uL (4.30-5.90); WBC 4.8 k/uL (3.8-10.6)
[2017-08-22 08:37] LABS: Anion Gap 7 mmol/L; Blood Urea Nitrogen 21 mg/dL (9-20); Calcium 8.9 mg/dL (8.4-10.2); Carbon Dioxide 32 mmol/L (22-30); Chloride 100 mmol/L (98-107); Glucose 118 mg/dL (74-99); Potassium 4.6 mmol/L (3.5-5.1); Sodium 139 mmol/L (137-145)
[2017-08-22] MEDS: INSULIN ASPART 100 UNIT/ML 1 ML 10 ML VIAL SQ SCH ×4 (08:43→20:56)
[2017-08-22] MEDS: BUDESONIDE 1 MG/2 ML NEBU INHALATION SCH ×2 (08:43→19:35)
[2017-08-22] MEDS: FORMOTEROL FUMARATE 20 MCG/2 ML NEBU INHALATION SCH ×2 (08:43→19:35)
[2017-08-22] MEDS: IPRATROPIUM-ALBUTEROL 3 ML NEB INHALATION SCH ×4 (08:43→19:35)
[2017-08-22] MEDS: PANTOPRAZOLE 40 MG TABLET PO SCH (08:44)
[2017-08-22] MEDS: DOCUSATE 100 MG CAP PO SCH ×2 (08:44→21:35)
[2017-08-22] MEDS: LEVOFLOXACIN 500 MG TAB PO SCH (08:44)
[2017-08-22] MEDS: ASPIRIN 81 MG PO SCH (08:44)
[2017-08-22] MEDS: buPROPion XL 150 MG TAB.ER.24H PO SCH (08:44)
[2017-08-22] MEDS: HEPARIN SODIUM,PORCINE 5,000 UNIT/ML 1 ML VIAL SQ SCH ×2 (08:45→21:35)
--- NOTE | 2017-08-22 12:29 | XR ---
EXAMINATION TYPE: XR chest 2V DATE OF EXAM: 08/22/2017 COMPARISON: 08/20/2017 HISTORY: Shortness of breath TECHNIQUE: Frontal and lateral views of the chest are obtained. FINDINGS: Scattered senescent parenchymal changes noted. Hyperinflation compatible with COPD. Stable right upper lobe postoperative change. Diffuse nonspecific interstitial process throughout bot h lung levine is stable. Underlying fibrosis. Heart size is stable. Mediastinal structures are stable and grossly unremarkable. No evidence for hilar prominence. Degenerative changes dorsal spine. IMPRESSION: 1. No evidence for acute pulmonary disease.
[2017-08-22 14:15] LABS: Glucose,Whole Blood 185 mg/dL (75-99)
--- NOTE | 2017-08-22 14:15 | P.PN ---
Subjective Progress Note Date: 08/22/17 Wicho is a 51-year-old white male patient of Dr. Reyes and Dr. Fuchs, has a past medical history positive for severe advanced oxygen-dependent chronic obstructive pulmonary disease, ongoing nicotine dependence, chronic pulmonary scarring in the upper lobes related to a history of bilateral spontaneous pneumothorax types to at a younger age requiring chest tube insertion and pleurodesis, anxiety, depression, chronic pain syndrome, macrocytic anemia, benign prostatic hypertrophy, and history of abdominal aortic aneurysm. Patient presented to the emergency department on 08/19/2017 complaints of worsening dyspnea, fatigue, decreased exercise tolerance, tachypnea and tachycardia. Patient wears oxygen at 2-3 L on the regular basis, however per EMS patient was oxygenating at about 81%. Did complain of significant chest pressure, denied any radiation, diaphoresis. Denied any nausea or vomiting. Patient had a cough, however no fever, unable to bring up any phlegm. Denied any lightheadedness, dizziness or syncopal episodes. Chest x-ray from 2017 showed stable biapical scarring, and stable diffuse pulmonary interstitial opacities, no acute process was seen. CTA chest was completed and showed no evidence for acute pulmonary embolism, advanced emphysematous changes with prominent bilateral fibrosis, evidence of right lung surgery with volume loss and old granuloma With this disease. Right upper lung acute consolidation was difficult to exclude, appear to be more prominent compared to previous CT chest studies. Patient did have a low-grade fever on presentation of 100.8F, otherwise remained afebrile while inpatient. She was in significant respiratory distress , with labored breathing, and use of accessory muscles and tachypnea, he was also tachycardic with a heart rate up to 133 bpm, tachypneic with respiratory rate up to 28 breaths per minute, but hemodynamically remains stable. Patient was recently hospitalized with a mild COPD exacerbation complicated by purulent tracheobronchitis, he was treated with oral antibiotics steroids and bronchodilators, improved and was discharged home in stable condition. Unfortunately patient continues to smoke, is spite multiple hospitalizations for COPD exacerbations and recurrent respiratory infections. She was discharged home on 08/11/2017 on oral course of Ceftin, prednisone taper, and maintenance inhalers and nebulized treatments. Blood and sputum cultures are pending at this time, patient was started on Levaquin, bronchodilator treatments , IV steroids, IV fluids and was admitted for further management. On 08/20/2017 patient seen in follow-up on medical surgical floor. Remains very dyspneic with any exertion, denies any phlegm production, does have frequent nonproductive congested cough. Lung sounds are positive for some scattered rales over left lower lobe, there is prolongation of expiratory phase. Afebrile overnight, vital signs are stable, currently on 4 L per nasal cannula with O2 sat at 98%. Hemodynamically stable, less tachycardic on today' s exam, with a heart rate up to 104 BPM. Overall improving, patient is being treated with empiric antibiotics in the form of Levaquin, IV steroids, and bronchodilator treatments. The plan is to proceed with bronchoscopy with BAL for lower respiratory tract sputum samples. The patient has been nothing by mouth since midnight, and a procedure scheduled for follow-up [address] Salinas On 08/21/2017 the patient is being seen in follow-up. The patient underwent a bronchoscopy and bronchial alveolar lavage of the right upper lobe yesterday. Following the procedure the patient had vigorous cough and. This caused significant amount of distress and oxygen desaturation. The patient had to be moved intensive care unit for further monitoring. Immediately after he arrived to the intensive care unit the patient felt better and his cough subsided and his heart rate and respiratory rate improved and he was actually taking that was somewhat between 3-4 L of oxygen by nasal cannula. His chest x-ray showed no evidence of any pneumothorax. A son that, the patient got transferred back to his medical floor. On today's evaluation, he is essentially the same. Still feeling slightly better compared to yesterday. No frequent coughing spells. No fever or chills. Remains in the same antibiotic coverage which included a combination of Levaquin and Zosyn and I'm awaiting the results of the bronchioloalveolar lavage was collected yesterday during bronchoscopy. No hemoptysis. No pleurisy. No chest pain. No other complaints otherwise. Noted the chest x-ray was done immediately after the bronchoscopy showed no evidence of any pneumothorax and there was a right upper lobe consolidation and a new right lower lobe infiltrate. No leukocytosis. His hemoglobin is at 7.0 and the patient has a significant drop compared to yesterday and this is to be followed up as the patient does not have any pulmonary bleeding or any gastrointestinal bleeding. There is an obvious 3 g drop in hemoglobin that needs to be washed 4 and hemoglobin is to be repeated. On 08/22/2017, Wicho is doing well and has no specific complaints. The bronchoscopy and the bronchioloalveolar lavage was completed and the patient does not have any fever or chills and I'm still awaiting for the final results of the bronchioloalveolar lavage. He is and accommodation of Zosyn and Levaquin. He is also on IV Solu-Medrol. His last bronchus spastic and wheezy. Hemoglobin was repeated and the patient's hemoglobin is currently above 8. No evidence of any acute bleeding. No respiratory distress for now. No fever or chills. No altered mentation. Is tolerating diet. He is having some nighttime insomnia. His white cell count is not elevated at 4.8. Hemoglobin is at 8.7. Objective - Vital Signs Vital signs: Vital Signs Temp 98.5 F 08/22/17 07:45 Pulse 80 08/22/17 12:00 Resp 18 08/22/17 08:00 BP 173/95 08/22/17 07:45 Pulse Ox 91 L 08/22/17 08:47 Intake & Output 08/21/17 08/22/17 08/22/17 18:59 06:59 18:59 Intake Total 620 Output Total 350 Balance 270 Weight 61.235 kg 61.235 kg Intake: Blood Product 620 Rc Pheresis 2 As3 Unit 310 [id number] Output: Urine 350 Other: Voiding Method Urinal Urinal # Voids 3 2 # Bowel Movements 0 - Exam - Constitutional General appearance: mild distress, thin - EENT Eyes: PERRLA, poor dentition, normal appearance ENT: NA/AT Ears: bilateral: normal - Neck Neck: no lymphadenopathy Carotids: bilateral: upstroke normal Thyroid: bilateral: normal size - Respiratory Respiratory: bilateral: diminished, prolonged expiration, some scattered rales over left lower lobe - Cardiovascular Heart sounds: normal: S1, S2 leg Peripheral Edema: absent: None foot Peripheral Edema: absent: None - Gastrointestinal General gastrointestinal: no organomegaly, soft, no tenderness - Integumentary Integumentary: normal turgor, pale - Neurologic Neurologic: CNII-XII intact - Musculoskeletal Musculoskeletal: gait normal, generalized weakness, strength equal bilaterally - Psychiatric Psychiatric: A&O x's 3, appropriate affect, intact judgment & insight - Labs CBC & Chem 7: 08/22/17 07:53 08/22/17 07:53 Labs: Abnormal Lab Results - Last 24 Hours (Table) 08/21/17 08/21/17 08/21/17 Range/Units 10:59 17:27 17:47 RBC 2.58 L (4.30-5.90) m/uL Hgb 8.1 L (13.0-17.5) gm/dL Hct 25.5 L (39.0-53.0) % MCV (80.0-100.0) fL MCHC (31.0-37.0) g/dL RDW 19.9 H (11.5-15.5) % Lymphocytes # 0.4 L (1.0-4.8) k/uL Carbon Dioxide (22-30) mmol/L BUN (9-20) mg/dL Glucose (74-99) mg/dL POC Glucose (mg/dL) 170 H (75-99) mg/dL Crossmatch See Detail 08/21/17 08/22/17 08/22/17 Range/Units 19:53 07:29 07:53 RBC 2.82 L (4.30-5.90) m/uL Hgb 8.7 L (13.0-17.5) gm/dL Hct 28.3 L (39.0-53.0) % MCV 100.1 H (80.0-100.0) fL MCHC 30.8 L (31.0-37.0) g/dL RDW 20.0 H (11.5-15.5) % Lymphocytes # 0.5 L (1.0-4.8) k/uL Carbon Dioxide (22-30) mmol/L BUN (9-20) mg/dL Glucose (74-99) mg/dL POC Glucose (mg/dL) 139 H 137 H (75-99) mg/dL Crossmatch 08/22/17 Range/Units 07:53 RBC (4.30-5.90) m/uL Hgb (13.0-17.5) gm/dL Hct (39.0-53.0) % MCV (80.0-100.0) fL MCHC (31.0-37.0) g/dL RDW (11.5-15.5) % Lymphocytes # (1.0-4.8) k/uL Carbon Dioxide 32 H (22-30) mmol/L BUN 21 H (9-20) mg/dL Glucose 118 H (74-99) mg/dL POC Glucose (mg/dL) (75-99) mg/dL Crossmatch Microbiology - Last 24 Hours (Table) 08/19/17 20:52 Gram Stain - Final Sputum Sputum Culture - Final 08/19/17 05:10 Blood Culture - Preliminary Blood No Growth after 72 hours 08/20/17 14:10 Acid Fast Bacilli Smear - Final Bronchial Washings - Right Acid Fast Bacilli Culture - Preliminary Assessment and Plan Plan: #1. Acute on chronic hypoxic respiratory failure secondary to a possible right upper lobe pneumonia, patient presented with low-grade fever, difficulty breathing, chest wall tenderness, chest congestion. And the CTA chest showed chronic biapical scarring, however acute right upper lobe consolidation was difficult to exclude, and appeared more prominent compared to the previous CT chest based on all this, the patient was placed on broad-spectrum antibiotics and currently is on a combination of Zosyn and Levaquin. Bronchoscopy and bronchial lavage of the right upper lobe was done yesterday and we are still awaiting the results of the cultures. The patient is feeling better and improvement is slow. Meanwhile the patient is awaiting the results of the bronchioloalveolar lavage was collected today prior to yesterday. The cultures of been showing some positivity in the Gram stain yet the final cultures are still pending. Meanwhile the patient remains on a combination of Zosyn and Levaquin. #2. Acute COPD exacerbation with worsening consolidation of the right upper lobe. Status for bronchoscopy and bronchial lavage, cultures still pending. #3. Advanced COPD, oxygen dependent #4. Ongoing nicotine dependence #5. History of myelodysplastic syndrome, with interval drop in hemoglobin down to 8.7 and the hemoglobin is stable #6. Anemia of chronic disease #7. Chronic biapical lung scarring, related to previous history of bilateral spontaneous pneumothoraxes, and pleurodesis at a younger age #8. Frequent hospitalizations for recurrent lung infections #9. History of abdominal aortic aneurysm #10. Anxiety, depression Plan Continue bronchodilators. Yessy Solu Medrol. Continue same antibiotic coverage. Awaiting the results of the bronchioloalveolar lavage. Increased level of activity as tolerated. We'll continue to follow.
[2017-08-22 18:05] LABS: Glucose,Whole Blood 191 mg/dL (75-99)
[2017-08-22 20:07] LABS: Glucose,Whole Blood 98 mg/dL (75-99)
--- NOTE | 2017-08-22 20:49 | P.PN ---
Subjective Progress Note Date: 08/22/17 Progress note being dictated for Dr. Cherry. Interval history: This is a 51-year-old gentleman admitted with acute COPD exacerbation, tracheobronchitis, status post bronchoscopy. Bronchoscopy cultures pending. Maintained on Zosyn, Levaquin. Breathing improving. Denies chest pain, palpitations or increasing shortness of breath. Patient's hemoglobin dropped to 7.0, symptomatic and receiving one unit of packed RBCs. 08/22/2017 continues on nebulized bronchodilators, steroids, Zosyn and Levaquin. reports improvement in breathing status post bronchoscopy. Bronchoscopy cultures pending. Chest x-ray nonacute. Afebrile. Hemoglobin currently 8.7. Good diet intake with no nausea vomiting or diarrhea. Reports bowel movement last night. Objective - Vital Signs Vital signs: Vital Signs Temp 97.5 F L 08/22/17 15:00 Pulse 76 08/22/17 19:54 Resp 16 08/22/17 15:00 BP 103/57 08/22/17 15:00 Pulse Ox 95 08/22/17 15:00 Intake & Output 08/22/17 08/22/17 08/23/17 06:59 18:59 06:59 Intake Total 500 Balance 500 Weight 61.235 kg Intake: Oral 500 Other: Voiding Method Urinal Urinal # Voids 2 2 - Exam PHYSICAL EXAM: VITAL SIGNS: As above GENERAL: Sitting up in bed, no acute distress HEENT: Conjunctivae normal. eyes normal. NECK: No JVD. No thyroid enlargement. No LNs CARDIOVASCULAR: S1, S2 muffled. No murmur RESPIRATION: Breath sounds diminished in the bases. No rhonchi, fine bibasilar crackles, greater on the left. ABDOMEN: Soft, nontender . No guarding. no masses palpable. Bowel sounds heard. LEGS: No edema. no swelling PSYCHIATRY: Alert and oriented -3, mood and affect normal. NERVOUS SYSTEM: Cranial N 2-12 grossly normal. Moves all 4 limbs. Diffuse weakness No focal deficits. Skin: no ulcer no rash Lymphatic system. No LN neck axilla or groin. - Labs CBC & Chem 7: 08/22/17 07:53 08/22/17 07:53 Labs: Abnormal Lab Results - Last 24 Hours (Table) 04/20/18 04/20/18 04/20/18 Range/Units 07:29 07:53 07:53 RBC 2.82 L (4.30-5.90) m/uL Hgb 8.7 L (13.0-17.5) gm/dL Hct 28.3 L (39.0-53.0) % MCV 100.1 H (80.0-100.0) fL MCHC 30.8 L (31.0-37.0) g/dL RDW 20.0 H (11.5-15.5) % Lymphocytes # 0.5 L (1.0-4.8) k/uL Carbon Dioxide 32 H (22-30) mmol/L BUN 21 H (9-20) mg/dL Glucose 118 H (74-99) mg/dL POC Glucose (mg/dL) 137 H (75-99) mg/dL 08/22/17 08/22/17 Range/Units 14:14 18:05 RBC (4.30-5.90) m/uL Hgb (13.0-17.5) gm/dL Hct (39.0-53.0) % MCV (80.0-100.0) fL MCHC (31.0-37.0) g/dL RDW (11.5-15.5) % Lymphocytes # (1.0-4.8) k/uL Carbon Dioxide (22-30) mmol/L BUN (9-20) mg/dL Glucose (74-99) mg/dL POC Glucose (mg/dL) 185 H 191 H (75-99) mg/dL Microbiology - Last 24 Hours (Table) 08/19/17 20:52 Gram Stain - Final Sputum Sputum Culture - Final 08/19/17 05:10 Blood Culture - Preliminary Blood No Growth after 72 hours 08/20/17 14:10 Acid Fast Bacilli Smear - Final Bronchial Washings - Right Acid Fast Bacilli Culture - Preliminary Assessment and Plan Assessment: 1. Acute COPD exacerbation right upper lobe pneumonia, possibly gram-negative with acute on chronic hypoxic respiratory failure. 2. Normocytic anemia of chronic disease 3. Ongoing nicotine dependence 4. History of dementia 5. History of myelodysplastic syndrome 6. Chronic hypoxic respiratory failure 7. History of bilateral spontaneous pneumothoraxes and pleurodesis 8. History of abdominal aortic aneurysm 9. Anxiety, depression. Plan: Continue on current medication regime ,monitoring and symptomatic treatment.Bronchoscopy/lavage culture results pending. Increase ambulation as tolerated. maintain IV antibiotics, nebulized bronchodilators, steroids. Follow closely with pulmonary. Further recommendations to follow. The impression and plan of care has been dictated as directed. : I performed a history and examination of this patient, discussed the same with the dictator. I agree with the dictator's note ,documented as a scribe. Any additional findings or plans will be noted.
[2017-08-22] MEDS: MONTELUKAST 10 MG TAB PO SCH (21:35)
[2017-08-22] MEDS: ATORVASTATIN 20 MG TAB PO SCH (21:35)
[2017-08-22] MEDS: methylPREDNISolone SOD SUCCI 40 MG/ML 1 ML VIAL IV SCH (22:25)
[2017-08-23] MEDS: TEMAZEPAM 15 MG CAP PO PRN ×2 (00:27→23:16)
[2017-08-23] MEDS: SODIUM CHLORIDE 0.9% 1,000 ML IV SCH ×2 (03:36→17:31)
[2017-08-23] MEDS: oxyCODONE-APAP 10-325MG 1 EACH TAB PO PRN ×4 (03:48→21:43)
[2017-08-23] MEDS: BUDESONIDE 1 MG/2 ML NEBU INHALATION SCH ×2 (07:24→20:31)
[2017-08-23] MEDS: FORMOTEROL FUMARATE 20 MCG/2 ML NEBU INHALATION SCH ×2 (07:24→20:46)
[2017-08-23] MEDS: IPRATROPIUM-ALBUTEROL 3 ML NEB INHALATION SCH ×4 (07:27→20:32)
[2017-08-23 08:16] LABS: Anisocytosis Slight; HCT 32.5 % (39.0-53.0); HGB 10.1 gm/dL (13.0-17.5); Hypochromasia Moderate; MCH 31.7 pg (25.0-35.0); MCHC 31.2 g/dL (31.0-37.0); MCV 101.7 fL (80.0-100.0); Macrocytosis Moderate; Mean Platelet Volume 7.4; Platelet Count 329 k/uL (150-450); Poikilocytosis Slight; RBC 3.19 m/uL (4.30-5.90); RDW 19.9 % (11.5-15.5)
[2017-08-23 08:21] LABS: Anion Gap 11 mmol/L; Blood Urea Nitrogen 19 mg/dL (9-20); Calcium 8.7 mg/dL (8.4-10.2); Carbon Dioxide 30 mmol/L (22-30); Chloride 99 mmol/L (98-107); Glucose 98 mg/dL (74-99); Potassium 4.3 mmol/L (3.5-5.1); Sodium 140 mmol/L (137-145)
[2017-08-23] MEDS: INSULIN ASPART 100 UNIT/ML 1 ML 10 ML VIAL SQ SCH ×4 (08:22→20:20)
[2017-08-23] MEDS: methylPREDNISolone SOD SUCCI 40 MG/ML 1 ML VIAL IV SCH ×2 (08:34→20:21)
[2017-08-23] MEDS: PIPERACILLIN-TAZOBACTAM 3.375 GM in DEXTROSE/WATER 1 50ML.BAG IVPB SCH ×3 (08:34→23:11)
[2017-08-23] MEDS: PANTOPRAZOLE 40 MG TABLET PO SCH (08:35)
[2017-08-23] MEDS: HEPARIN SODIUM,PORCINE 5,000 UNIT/ML 1 ML VIAL SQ SCH ×2 (08:35→20:21)
[2017-08-23] MEDS: DOCUSATE 100 MG CAP PO SCH ×2 (08:35→20:21)
[2017-08-23] MEDS: ASPIRIN 81 MG PO SCH (08:35)
[2017-08-23] MEDS: buPROPion XL 150 MG TAB.ER.24H PO SCH (08:35)
[2017-08-23] MEDS: LEVOFLOXACIN 500 MG TAB PO SCH (08:35)
[2017-08-23 08:57] LABS: Band Neutrophils % 3 %; Lymphocytes # (M) 1.02 k/uL (1.0-4.8); Metamyelocytes # (M) 0.24 k/uL (0); Metamyelocytes % 4 %; Monocytes # (M) 0.12 k/uL (0-1.0); Myelocytes # (M) 0.06 k/uL (0); Myelocytes % 1 %; Neutrophils % (M) 75 %; Nucleated Red Blood Cells 1 /100 WBC (0-0); Polychromasia Present; Total Cells Counted 200
[2017-08-23 10:59] LABS: Glucose,Whole Blood 147 mg/dL (75-99)
[2017-08-23] MEDS ORDERED: FLUCONAZOLE IN NACL,ISO-OSM 100 MG in SALINE 1 50ML.BAG IVPB STA (14:29)
--- NOTE | 2017-08-23 15:48 | PN ---
PROGRESS NOTE DATE OF SERVICE: 08/23/2017 This 51-year-old gentleman admitted with COPD, acute exacerbation, is also complaining of generalized weakness and tiredness. No chest pain. No palpitations. Patient underwent bronchoscopy. Cultures are showing Dary tropicalis. No fever. No cough. On exam, alert and oriented x3. Pulse is 88, blood pressure 133/61, respiration 28, temperature 97.1, pulse ox 99% on room air. HEENT: Conjunctivae normal. NECK: No jugular venous distention. CARDIOVASCULAR SYSTEM: S1, S2 muffled. RESPIRATORY SYSTEM: Breath sounds diminished at the bases. A few scattered rhonchi and crackles. ABDOMEN: Soft, non-tender. LEGS: No edema. No swelling. NERVOUS SYSTEM: No focal deficit. LABS: WBC 6, hemoglobin 10.1. ASSESSMENT: 1. Chronic obstructive pulmonary disease, acute exacerbation, with right upper lobe pneumonia, possibly Gram-negative, with acute on chronic hypoxic respiratory failure, status post bronchoscopy. 2. Dary tropicalis from the sputum culture. 3. Normocytic anemia; anemia of chronic disease. 4. Ongoing nicotine dependence. 5. Dementia. 6. History of myelodysplastic syndrome. 7. Chronic hypoxic respiratory failure. 8. History of bilateral spontaneous pneumothorax and pleurodesis. 9. History of abdominal aortic aneurysm. 10.Anxiety, depression. RECOMMENDATIONS AND DISCUSSION: At this time I recommend to continue current medication, continue with the monitoring, symptomatic treatment. Continue the bronchodilators, empiric antibiotics, steroids. Add Diflucan. Closely follow. Further recommendations to follow. MMODL / IJN: [id number] /
--- NOTE | 2017-08-23 16:49 | P.PN ---
Subjective Progress Note Date: 08/23/17 Wicho is a 51-year-old white male patient of Dr. Reyes and Dr. Fuchs, has a past medical history positive for severe advanced oxygen-dependent chronic obstructive pulmonary disease, ongoing nicotine dependence, chronic pulmonary scarring in the upper lobes related to a history of bilateral spontaneous pneumothorax types to at a younger age requiring chest tube insertion and pleurodesis, anxiety, depression, chronic pain syndrome, macrocytic anemia, benign prostatic hypertrophy, and history of abdominal aortic aneurysm. Patient presented to the emergency department on 08/19/2017 complaints of worsening dyspnea, fatigue, decreased exercise tolerance, tachypnea and tachycardia. Patient wears oxygen at 2-3 L on the regular basis, however per EMS patient was oxygenating at about 81%. Did complain of significant chest pressure, denied any radiation, diaphoresis. Denied any nausea or vomiting. Patient had a cough, however no fever, unable to bring up any phlegm. Denied any lightheadedness, dizziness or syncopal episodes. Chest x-ray from 2017 showed stable biapical scarring, and stable diffuse pulmonary interstitial opacities, no acute process was seen. CTA chest was completed and showed no evidence for acute pulmonary embolism, advanced emphysematous changes with prominent bilateral fibrosis, evidence of right lung surgery with volume loss and old granuloma With this disease. Right upper lung acute consolidation was difficult to exclude, appear to be more prominent compared to previous CT chest studies. Patient did have a low-grade fever on presentation of 100.8F, otherwise remained afebrile while inpatient. She was in significant respiratory distress , with labored breathing, and use of accessory muscles and tachypnea, he was also tachycardic with a heart rate up to 133 bpm, tachypneic with respiratory rate up to 28 breaths per minute, but hemodynamically remains stable. Patient was recently hospitalized with a mild COPD exacerbation complicated by purulent tracheobronchitis, he was treated with oral antibiotics steroids and bronchodilators, improved and was discharged home in stable condition. Unfortunately patient continues to smoke, is spite multiple hospitalizations for COPD exacerbations and recurrent respiratory infections. She was discharged home on 08/11/2017 on oral course of Ceftin, prednisone taper, and maintenance inhalers and nebulized treatments. Blood and sputum cultures are pending at this time, patient was started on Levaquin, bronchodilator treatments , IV steroids, IV fluids and was admitted for further management. On 08/20/2017 patient seen in follow-up on medical surgical floor. Remains very dyspneic with any exertion, denies any phlegm production, does have frequent nonproductive congested cough. Lung sounds are positive for some scattered rales over left lower lobe, there is prolongation of expiratory phase. Afebrile overnight, vital signs are stable, currently on 4 L per nasal cannula with O2 sat at 98%. Hemodynamically stable, less tachycardic on today' s exam, with a heart rate up to 104 BPM. Overall improving, patient is being treated with empiric antibiotics in the form of Levaquin, IV steroids, and bronchodilator treatments. The plan is to proceed with bronchoscopy with BAL for lower respiratory tract sputum samples. The patient has been nothing by mouth since midnight, and a procedure scheduled for follow-up [address] Salinas On 08/21/2017 the patient is being seen in follow-up. The patient underwent a bronchoscopy and bronchial alveolar lavage of the right upper lobe yesterday. Following the procedure the patient had vigorous cough and. This caused significant amount of distress and oxygen desaturation. The patient had to be moved intensive care unit for further monitoring. Immediately after he arrived to the intensive care unit the patient felt better and his cough subsided and his heart rate and respiratory rate improved and he was actually taking that was somewhat between 3-4 L of oxygen by nasal cannula. His chest x-ray showed no evidence of any pneumothorax. A son that, the patient got transferred back to his medical floor. On today's evaluation, he is essentially the same. Still feeling slightly better compared to yesterday. No frequent coughing spells. No fever or chills. Remains in the same antibiotic coverage which included a combination of Levaquin and Zosyn and I'm awaiting the results of the bronchioloalveolar lavage was collected yesterday during bronchoscopy. No hemoptysis. No pleurisy. No chest pain. No other complaints otherwise. Noted the chest x-ray was done immediately after the bronchoscopy showed no evidence of any pneumothorax and there was a right upper lobe consolidation and a new right lower lobe infiltrate. No leukocytosis. His hemoglobin is at 7.0 and the patient has a significant drop compared to yesterday and this is to be followed up as the patient does not have any pulmonary bleeding or any gastrointestinal bleeding. There is an obvious 3 g drop in hemoglobin that needs to be washed 4 and hemoglobin is to be repeated. On 08/22/2017, Wicho is doing well and has no specific complaints. The bronchoscopy and the bronchioloalveolar lavage was completed and the patient does not have any fever or chills and I'm still awaiting for the final results of the bronchioloalveolar lavage. He is and accommodation of Zosyn and Levaquin. He is also on IV Solu-Medrol. His last bronchus spastic and wheezy. Hemoglobin was repeated and the patient's hemoglobin is currently above 8. No evidence of any acute bleeding. No respiratory distress for now. No fever or chills. No altered mentation. Is tolerating diet. He is having some nighttime insomnia. His white cell count is not elevated at 4.8. Hemoglobin is at 8.7. The patient is seen again today 08/23/2017 in follow-up in the oncology unit. He is currently resting quite comfortably in bed. He is breathing easier today as compared to yesterday. Maintaining good O2 saturations in the 90s on 3 L/m per nasal cannula now. Bronchial wash has been positive for Dray only thus far. White count 6.0. Hemoglobin 10.1. Creatinine 0.72. Objective - Vital Signs Vital signs: Vital Signs Temp 97.8 F 08/23/17 14:35 Pulse 86 08/23/17 15:50 Resp 24 08/23/17 14:35 BP 108/68 08/23/17 14:35 Pulse Ox 91 L 08/23/17 15:43 Intake & Output 08/22/17 08/23/17 08/23/17 18:59 06:59 18:59 Intake Total 500 650 Balance 500 650 Weight 61.235 kg Intake: Intake, IV Titration 650 Amount Piperacillin-Tazobactam 3 50 .375 gm In Dextrose/Water 1 50ml.bag @ 12.5 mls/hr IVPB Q8HR [facility] Rx#: [id number] Sodium Chloride 0.9% 1, 600 000 ml @ 75 mls/hr IV . [id number] [facility] Rx#:[id number] Oral 500 Other: Voiding Method Urinal Urinal Urinal # Voids 2 1 - Exam - Constitutional General appearance: mild distress, thin - EENT Eyes: PERRLA, poor dentition, normal appearance ENT: NA/AT Ears: bilateral: normal - Neck Neck: no lymphadenopathy Carotids: bilateral: upstroke normal Thyroid: bilateral: normal size - Respiratory Respiratory: bilateral: diminished, prolonged expiration, some scattered rales over left lower lobe - Cardiovascular Heart sounds: normal: S1, S2 leg Peripheral Edema: absent: None foot Peripheral Edema: absent: None - Gastrointestinal General gastrointestinal: no organomegaly, soft, no tenderness - Integumentary Integumentary: normal turgor, pale - Neurologic Neurologic: CNII-XII intact - Musculoskeletal Musculoskeletal: gait normal, generalized weakness, strength equal bilaterally - Psychiatric Psychiatric: A&O x's 3, appropriate affect, intact judgment & insight - Labs CBC & Chem 7: 08/23/17 07:16 08/23/17 07:16 Labs: Abnormal Lab Results - Last 24 Hours (Table) 08/22/17 08/23/17 08/23/17 Range/Units 18:05 07:16 10:57 RBC 3.19 L (4.30-5.90) m/uL Hgb 10.1 L (13.0-17.5) gm/dL Hct 32.5 L (39.0-53.0) % MCV 101.7 H (80.0-100.0) fL RDW 19.9 H (11.5-15.5) % Metamyelocytes # (Man) 0.24 H (0) k/uL Myelocytes # (Manual) 0.06 H (0) k/uL Nucleated RBCs 1 H (0-0) /100 WBC POC Glucose (mg/dL) 191 H 147 H (75-99) mg/dL Microbiology - Last 24 Hours (Table) 08/20/17 14:10 Gram Stain - Final Bronchial Washings - Right Bronchial Washings Culture - Final Dary tropicalis 08/19/17 05:10 Blood Culture - Preliminary Blood No Growth after 96 hours 08/19/17 20:52 Gram Stain - Final Sputum Sputum Culture - Final Assessment and Plan Assessment: Impression: #1. Acute on chronic hypoxic respiratory failure secondary to a possible right upper lobe pneumonia, patient presented with low-grade fever, difficulty breathing, chest wall tenderness, chest congestion. And the CTA chest showed chronic biapical scarring, however acute right upper lobe consolidation was difficult to exclude, and appeared more prominent compared to the previous CT chest based on all this, the patient was placed on broad-spectrum antibiotics and currently is on a combination of Zosyn and Levaquin. Bronchoscopy and bronchial lavage of the right upper lobe was done yesterday and we are still awaiting the results of the cultures. The patient is feeling better and improvement is slow. Meanwhile the patient is awaiting the results of the bronchioloalveolar lavage. The cultures of been showing some positivity in the Gram stain yet the final cultures are still pending. Meanwhile the patient remains on a combination of Zosyn and Levaquin. #2. Acute COPD exacerbation with worsening consolidation of the right upper lobe. Status for bronchoscopy and bronchial lavage, cultures still pending. #3. Advanced COPD, oxygen dependent #4. Ongoing nicotine dependence #5. History of myelodysplastic syndrome, with interval drop in hemoglobin down to 7.0, status post 1 unit packed red blood cells. Current hemoglobin 10.1. #6. Anemia of chronic disease #7. Chronic biapical lung scarring, related to previous history of bilateral spontaneous pneumothoraxes, and pleurodesis at a younger age #8. Frequent hospitalizations for recurrent lung infections #9. History of abdominal aortic aneurysm #10. Anxiety, depression Plan: The patient was seen and evaluated by Dr. Salinas. He is stable from the pulmonary standpoint. Continue to increase his activity as tolerated. The patient is hopeful to get well enough to go to [place] to be with his family. We will continue with his current medications for now. We'll continue to follow. I, the cosigning physician, performed a history & physical examination of the patient. Lungs sounds attending expiratory wheeze, few scattered rhonchir. Maintaining good O2 saturations in the 90s on rectal liters per minute per nasal cannula. I discussed the assessment and plan of care with my nurse practitioner, Fadia Mc. I attest to the above note as dictated by her.
[2017-08-23] MEDS: ALPRAZolam 0.25 MG TAB PO PRN (17:30)
[2017-08-23 17:41] LABS: Glucose,Whole Blood 108 mg/dL (75-99)
[2017-08-23 20:17] LABS: Glucose,Whole Blood 130 mg/dL (75-99)
[2017-08-23] MEDS: ATORVASTATIN 20 MG TAB PO SCH (20:21)
[2017-08-23] MEDS: MONTELUKAST 10 MG TAB PO SCH (20:21)
[2017-08-24] MEDS: ALPRAZolam 0.25 MG TAB PO PRN ×3 (01:51→20:47)
[2017-08-24] MEDS: SODIUM CHLORIDE 0.9% 1,000 ML IV SCH ×2 (01:51→10:38)
[2017-08-24] MEDS: oxyCODONE-APAP 10-325MG 1 EACH TAB PO PRN ×4 (03:47→23:03)
[2017-08-24 07:20] LABS: Anisocytosis Slight; Basophils % (A) 0 %; Eosinophils % (A) 0 %; HGB 9.1 gm/dL (13.0-17.5); Hypochromasia Slight; Lymphocytes # (A) 0.7 k/uL (1.0-4.8); Lymphocytes % (A) 14 %; MCH 31.7 pg (25.0-35.0); MCHC 31.3 g/dL (31.0-37.0); MCV 101.3 fL (80.0-100.0); Macrocytosis Moderate; Mean Platelet Volume 7.2; Monocytes # (A) 0.2 k/uL (0-1.0); Monocytes % (A) 3 %; Neutrophils # (A) 4.2 k/uL (1.3-7.7); Neutrophils % (A) 80 %; Platelet Count 295 k/uL (150-450); Poikilocytosis Slight; RBC 2.86 m/uL (4.30-5.90); RDW 19.9 % (11.5-15.5); WBC 5.2 k/uL (3.8-10.6)
[2017-08-24 07:56] LABS: Glucose,Whole Blood 100 mg/dL (75-99)
[2017-08-24 08:11] LABS: Anion Gap 6 mmol/L; Blood Urea Nitrogen 17 mg/dL (9-20); Calcium 8.2 mg/dL (8.4-10.2); Carbon Dioxide 31 mmol/L (22-30); Chloride 99 mmol/L (98-107); Glucose 111 mg/dL (74-99); Potassium 4.2 mmol/L (3.5-5.1); Sodium 136 mmol/L (137-145)
[2017-08-24] MEDS: INSULIN ASPART 100 UNIT/ML 1 ML 10 ML VIAL SQ SCH ×4 (08:35→20:41)
[2017-08-24] MEDS: PIPERACILLIN-TAZOBACTAM 3.375 GM in DEXTROSE/WATER 1 50ML.BAG IVPB SCH ×3 (08:46→23:03)
[2017-08-24] MEDS: PANTOPRAZOLE 40 MG TABLET PO SCH (08:46)
[2017-08-24] MEDS: LEVOFLOXACIN 500 MG TAB PO SCH (08:46)
[2017-08-24] MEDS: DOCUSATE 100 MG CAP PO SCH ×2 (08:48→20:47)
[2017-08-24] MEDS: FORMOTEROL FUMARATE 20 MCG/2 ML NEBU INHALATION SCH ×2 (08:49→20:49)
[2017-08-24] MEDS: HEPARIN SODIUM,PORCINE 5,000 UNIT/ML 1 ML VIAL SQ SCH ×2 (08:49→20:46)
[2017-08-24] MEDS: BUDESONIDE 1 MG/2 ML NEBU INHALATION SCH ×2 (08:49→20:49)
[2017-08-24] MEDS: IPRATROPIUM-ALBUTEROL 3 ML NEB INHALATION SCH ×4 (08:49→20:49)
[2017-08-24] MEDS: ASPIRIN 81 MG PO SCH (08:49)
[2017-08-24] MEDS: methylPREDNISolone SOD SUCCI 40 MG/ML 1 ML VIAL IV SCH ×2 (08:50→20:44)
[2017-08-24] MEDS ORDERED: DARBEPOETIN ALFA 60 MCG/0.3 ML SYRINGE SQ SCH (09:00)
[2017-08-24] MEDS ORDERED: FLUCONAZOLE 100 MG TAB PO SCH (09:00)
[2017-08-24] MEDS: buPROPion XL 150 MG TAB.ER.24H PO SCH (10:38)
[2017-08-24 11:24] LABS: Glucose,Whole Blood 102 mg/dL (75-99)
--- NOTE | 2017-08-24 14:05 | P.PN ---
Subjective Progress Note Date: 08/24/17 Wicho is a 51-year-old white male patient of Dr. Reyes and Dr. Fuchs, has a past medical history positive for severe advanced oxygen-dependent chronic obstructive pulmonary disease, ongoing nicotine dependence, chronic pulmonary scarring in the upper lobes related to a history of bilateral spontaneous pneumothorax types to at a younger age requiring chest tube insertion and pleurodesis, anxiety, depression, chronic pain syndrome, macrocytic anemia, benign prostatic hypertrophy, and history of abdominal aortic aneurysm. Patient presented to the emergency department on 08/19/2017 complaints of worsening dyspnea, fatigue, decreased exercise tolerance, tachypnea and tachycardia. Patient wears oxygen at 2-3 L on the regular basis, however per EMS patient was oxygenating at about 81%. Did complain of significant chest pressure, denied any radiation, diaphoresis. Denied any nausea or vomiting. Patient had a cough, however no fever, unable to bring up any phlegm. Denied any lightheadedness, dizziness or syncopal episodes. Chest x-ray from 2017 showed stable biapical scarring, and stable diffuse pulmonary interstitial opacities, no acute process was seen. CTA chest was completed and showed no evidence for acute pulmonary embolism, advanced emphysematous changes with prominent bilateral fibrosis, evidence of right lung surgery with volume loss and old granuloma With this disease. Right upper lung acute consolidation was difficult to exclude, appear to be more prominent compared to previous CT chest studies. Patient did have a low-grade fever on presentation of 100.8F, otherwise remained afebrile while inpatient. She was in significant respiratory distress , with labored breathing, and use of accessory muscles and tachypnea, he was also tachycardic with a heart rate up to 133 bpm, tachypneic with respiratory rate up to 28 breaths per minute, but hemodynamically remains stable. Patient was recently hospitalized with a mild COPD exacerbation complicated by purulent tracheobronchitis, he was treated with oral antibiotics steroids and bronchodilators, improved and was discharged home in stable condition. Unfortunately patient continues to smoke, is spite multiple hospitalizations for COPD exacerbations and recurrent respiratory infections. She was discharged home on 08/11/2017 on oral course of Ceftin, prednisone taper, and maintenance inhalers and nebulized treatments. Blood and sputum cultures are pending at this time, patient was started on Levaquin, bronchodilator treatments , IV steroids, IV fluids and was admitted for further management. On 08/20/2017 patient seen in follow-up on medical surgical floor. Remains very dyspneic with any exertion, denies any phlegm production, does have frequent nonproductive congested cough. Lung sounds are positive for some scattered rales over left lower lobe, there is prolongation of expiratory phase. Afebrile overnight, vital signs are stable, currently on 4 L per nasal cannula with O2 sat at 98%. Hemodynamically stable, less tachycardic on today' s exam, with a heart rate up to 104 BPM. Overall improving, patient is being treated with empiric antibiotics in the form of Levaquin, IV steroids, and bronchodilator treatments. The plan is to proceed with bronchoscopy with BAL for lower respiratory tract sputum samples. The patient has been nothing by mouth since midnight, and a procedure scheduled for follow-up [address] Salinas On 08/21/2017 the patient is being seen in follow-up. The patient underwent a bronchoscopy and bronchial alveolar lavage of the right upper lobe yesterday. Following the procedure the patient had vigorous cough and. This caused significant amount of distress and oxygen desaturation. The patient had to be moved intensive care unit for further monitoring. Immediately after he arrived to the intensive care unit the patient felt better and his cough subsided and his heart rate and respiratory rate improved and he was actually taking that was somewhat between 3-4 L of oxygen by nasal cannula. His chest x-ray showed no evidence of any pneumothorax. A son that, the patient got transferred back to his medical floor. On today's evaluation, he is essentially the same. Still feeling slightly better compared to yesterday. No frequent coughing spells. No fever or chills. Remains in the same antibiotic coverage which included a combination of Levaquin and Zosyn and I'm awaiting the results of the bronchioloalveolar lavage was collected yesterday during bronchoscopy. No hemoptysis. No pleurisy. No chest pain. No other complaints otherwise. Noted the chest x-ray was done immediately after the bronchoscopy showed no evidence of any pneumothorax and there was a right upper lobe consolidation and a new right lower lobe infiltrate. No leukocytosis. His hemoglobin is at 7.0 and the patient has a significant drop compared to yesterday and this is to be followed up as the patient does not have any pulmonary bleeding or any gastrointestinal bleeding. There is an obvious 3 g drop in hemoglobin that needs to be washed 4 and hemoglobin is to be repeated. On 08/22/2017, Wicho is doing well and has no specific complaints. The bronchoscopy and the bronchioloalveolar lavage was completed and the patient does not have any fever or chills and I'm still awaiting for the final results of the bronchioloalveolar lavage. He is and accommodation of Zosyn and Levaquin. He is also on IV Solu-Medrol. His last bronchus spastic and wheezy. Hemoglobin was repeated and the patient's hemoglobin is currently above 8. No evidence of any acute bleeding. No respiratory distress for now. No fever or chills. No altered mentation. Is tolerating diet. He is having some nighttime insomnia. His white cell count is not elevated at 4.8. Hemoglobin is at 8.7. The patient is seen again today 08/23/2017 in follow-up in the oncology unit. He is currently resting quite comfortably in bed. He is breathing easier today as compared to yesterday. Maintaining good O2 saturations in the 90s on 3 L/m per nasal cannula now. Bronchial wash has been positive for Dary only thus far. White count 6.0. Hemoglobin 10.1. Creatinine 0.72. On 08/22/2017, I'm seeing this patient for a follow-up. He is afebrile hemodynamically stable. No worsening shortness of breath. All of the cultures from the bronchioloalveolar lavage of the right upper lobe came back negative and the patient had some yeast/Dary which is probably a colonizer. In any rate, he is still on antibiotics and steroids. He is looking well. He is COPD is end-stage and advanced. He has developed persistent chronic consolidation of the right upper lobe. He has been doing well otherwise. No altered mentation. No cough or sputum production. Hemoglobin has been stable. Tolerating his diet. No other significant events over the past 24 hours. Objective - Vital Signs Vital signs: Vital Signs Temp 97.6 F 08/24/17 06:52 Pulse 112 H 08/24/17 12:39 Resp 17 08/24/17 06:52 BP 94/51 08/24/17 06:52 Pulse Ox 98 08/24/17 06:52 Intake & Output 08/23/17 08/24/17 08/24/17 18:59 06:59 18:59 Intake Total 650 825 Balance 650 825 Intake: IV 825 Sodium Chloride 0.9% 1, 825 000 ml @ 75 mls/hr IV . [id number] [facility] Rx#:[id number] Intake, IV Titration 650 Amount Piperacillin-Tazobactam 3 50 .375 gm In Dextrose/Water 1 50ml.bag @ 12.5 mls/hr IVPB Q8HR [facility] Rx#: [id number] Sodium Chloride 0.9% 1, 600 000 ml @ 75 mls/hr IV . [id number] [facility] Rx#:[id number] Other: Voiding Method Urinal Urinal Urinal - Exam General appearance: mild distress, thin - EENT Eyes: PERRLA, poor dentition, normal appearance ENT: NA/AT Ears: bilateral: normal - Neck Neck: no lymphadenopathy Carotids: bilateral: upstroke normal Thyroid: bilateral: normal size - Respiratory Respiratory: bilateral: diminished, prolonged expiration, some scattered rales over left lower lobe - Cardiovascular Heart sounds: normal: S1, S2 leg Peripheral Edema: absent: None foot Peripheral Edema: absent: None - Gastrointestinal General gastrointestinal: no organomegaly, soft, no tenderness - Integumentary Integumentary: normal turgor, pale - Neurologic Neurologic: CNII-XII intact - Musculoskeletal Musculoskeletal: gait normal, generalized weakness, strength equal bilaterally - Psychiatric Psychiatric: A&O x's 3, appropriate affect, intact judgment & insight - Labs CBC & Chem 7: 08/24/17 06:44 08/24/17 06:44 Labs: Abnormal Lab Results - Last 24 Hours (Table) 08/23/17 08/23/17 08/24/17 Range/Units 17:40 20:12 06:44 RBC 2.86 L (4.30-5.90) m/uL Hgb 9.1 L (13.0-17.5) gm/dL Hct 29.0 L (39.0-53.0) % MCV 101.3 H (80.0-100.0) fL RDW 19.9 H (11.5-15.5) % Lymphocytes # 0.7 L (1.0-4.8) k/uL Sodium (137-145) mmol/L Carbon Dioxide (22-30) mmol/L Creatinine (0.66-1.25) mg/dL Glucose (74-99) mg/dL POC Glucose (mg/dL) 108 H 130 H (75-99) mg/dL Calcium (8.4-10.2) mg/dL 08/24/17 08/24/17 08/24/17 Range/Units 06:44 07:46 11:12 RBC (4.30-5.90) m/uL Hgb (13.0-17.5) gm/dL Hct (39.0-53.0) % MCV (80.0-100.0) fL RDW (11.5-15.5) % Lymphocytes # (1.0-4.8) k/uL Sodium 136 L (137-145) mmol/L Carbon Dioxide 31 H (22-30) mmol/L Creatinine 0.65 L (0.66-1.25) mg/dL Glucose 111 H (74-99) mg/dL POC Glucose (mg/dL) 100 H 102 H (75-99) mg/dL Calcium 8.2 L (8.4-10.2) mg/dL Microbiology - Last 24 Hours (Table) 08/19/17 05:10 Blood Culture - Preliminary Blood No Growth after 120 hours 08/20/17 14:10 Gram Stain - Final Bronchial Washings - Right Bronchial Washings Culture - Final Dary tropicalis Assessment and Plan Plan: Impression: #1. Acute on chronic hypoxic respiratory failure secondary to a possible right upper lobe pneumonia, patient presented with low-grade fever, difficulty breathing, chest wall tenderness, chest congestion. And the CTA chest showed chronic biapical scarring, however acute right upper lobe consolidation was difficult to exclude, and appeared more prominent compared to the previous CT chest based on all this, the patient was placed on broad-spectrum antibiotics and currently is on a combination of Zosyn and Levaquin. Bronchoscopy and bronchial lavage of the right upper lobe was done and the primary cultures yielded no new growth in terms of bacteria and there was yeast consistent with Dary. The patient was kept on the same treatment. Anticipate further improvement. We'll continue to follow. #2. Acute COPD exacerbation with worsening consolidation of the right upper lobe, improving slowly. #3. Advanced COPD, oxygen dependent #4. Ongoing nicotine dependence #5. History of myelodysplastic syndrome, stable hemoglobin at 9.1. #6. Anemia of chronic disease #7. Chronic biapical lung scarring, related to previous history of bilateral spontaneous pneumothoraxes, and pleurodesis at a younger age #8. Frequent hospitalizations for recurrent lung infections #9. History of abdominal aortic aneurysm #10. Anxiety, depression Plan The patient has advanced COPD. Long-term prognosis poor. Of interest will be any ongoing microbial infection right upper lobe. Bronchoscopy and bronchial lavage yielded no positive cultures the knees. We'll treat with Diflucan. We' ll continue to follow. Continue bronchodilators. Increased level of activity as tolerated. We'll follow.
--- NOTE | 2017-08-24 16:37 | PN ---
PROGRESS NOTE DATE OF SERVICE: 08/24/2017 This 51-year-old gentleman admitted with COPD exacerbation being closely monitored. Patient had less shortness of breath. The patient Dary has grown from the sputum culture. The cultures are pending at this time. Dr. Salinas is following the patient closely at this time. No chest pain. No palpitations. No fever. The patient complaining of generalized weakness. EXAM: Alert and oriented x2. Pulse is 110, blood pressure 94/51, respiration 17, temperature 97.2, pulse ox 98% on 5 L. HEENT: Conjunctivae normal. Neck: No jugular venous distention. Cardiovascular: S1, S2 muffled. Breath sounds diminished in the bases. Bilateral scattered rhonchi and crackles. Abdomen is soft, nontender. Legs are no edema. No swelling. Central nervous system: No focal deficits. LAB: WBC 5.2, hemoglobin 9.2, sodium 136, potassium 4.2. ASSESSMENT: 1. Chronic obstructive pulmonary disease acute exacerbation with right upper lobe pneumonia, possibly gram negative with acute on chronic hypoxic respiratory failure status post bronchoscopy. 2. Dary tropicalis from the sputum culture. 3. Normocytic anemia, anemia of chronic disease. 4. Continued ongoing nicotine dependence. 5. Dementia. History of myelodysplastic syndrome. RECOMMENDATIONS AND DISCUSSION: Recommend to continue current medications, continue symptomatic treatment. At this time we will closely monitor, continue with bronchodilators, antibiotics. Closely follow with Pulmonary. Further recommendations to follow. Continue Diflucan. MMODL / IJN: [id number] /
[2017-08-24 17:40] LABS: Glucose,Whole Blood 123 mg/dL (75-99)
[2017-08-24 20:20] LABS: Glucose,Whole Blood 120 mg/dL (75-99)
[2017-08-24] MEDS: MONTELUKAST 10 MG TAB PO SCH (20:47)
[2017-08-24] MEDS: ATORVASTATIN 20 MG TAB PO SCH (20:47)
[2017-08-24] MEDS: MAGNESIUM HYDROXIDE 2,400 MG/10 ML CUP PO PRN (23:02)
[2017-08-24] MEDS: TEMAZEPAM 15 MG CAP PO PRN (23:02)
[2017-08-25] MEDS: oxyCODONE-APAP 10-325MG 1 EACH TAB PO PRN ×3 (05:37→19:37)
[2017-08-25] MEDS: ALPRAZolam 0.25 MG TAB PO PRN ×2 (05:37→13:48)
[2017-08-25 07:47] LABS: Anion Gap 14 mmol/L; Blood Urea Nitrogen 21 mg/dL (9-20); Calcium 8.8 mg/dL (8.4-10.2); Carbon Dioxide 28 mmol/L (22-30); Chloride 95 mmol/L (98-107); Glucose 87 mg/dL (74-99); Sodium 137 mmol/L (137-145)
[2017-08-25 07:51] LABS: Anisocytosis Slight; HCT 38.4 % (39.0-53.0); HGB 11.9 gm/dL (13.0-17.5); Hypochromasia Marked; MCH 31.9 pg (25.0-35.0); MCV 103.1 fL (80.0-100.0); Macrocytosis Marked; Mean Platelet Volume 7.6; Platelet Count 340 k/uL (150-450); RBC 3.73 m/uL (4.30-5.90); RDW 19.5 % (11.5-15.5)
[2017-08-25] MEDS: INSULIN ASPART 100 UNIT/ML 1 ML 10 ML VIAL SQ SCH ×4 (07:53→21:05)
[2017-08-25] MEDS: IPRATROPIUM-ALBUTEROL 3 ML NEB INHALATION SCH ×4 (08:17→18:52)
[2017-08-25] MEDS: BUDESONIDE 1 MG/2 ML NEBU INHALATION SCH ×2 (08:17→18:51)
[2017-08-25] MEDS: FLUCONAZOLE 100 MG TAB PO SCH (08:17)
[2017-08-25] MEDS: FORMOTEROL FUMARATE 20 MCG/2 ML NEBU INHALATION SCH ×2 (08:17→18:52)
[2017-08-25] MEDS: buPROPion XL 150 MG TAB.ER.24H PO SCH (08:18)
[2017-08-25] MEDS: PANTOPRAZOLE 40 MG TABLET PO SCH (08:18)
[2017-08-25] MEDS: HEPARIN SODIUM,PORCINE 5,000 UNIT/ML 1 ML VIAL SQ SCH ×2 (08:18→21:05)
[2017-08-25] MEDS: DOCUSATE 100 MG CAP PO SCH ×2 (08:18→21:05)
[2017-08-25] MEDS: ASPIRIN 81 MG PO SCH (08:18)
[2017-08-25] MEDS: LEVOFLOXACIN 500 MG TAB PO SCH (08:18)
[2017-08-25] MEDS: PIPERACILLIN-TAZOBACTAM 3.375 GM in DEXTROSE/WATER 1 50ML.BAG IVPB SCH ×4 (08:18→23:13)
[2017-08-25] MEDS: methylPREDNISolone SOD SUCCI 40 MG/ML 1 ML VIAL IV SCH (08:19)
[2017-08-25] MEDS: SODIUM CHLORIDE 0.9% 1,000 ML IV SCH ×3 (08:19→19:23)
[2017-08-25 09:00] LABS: Band Neutrophils % 5 %; Lymphocytes # (M) 1.29 k/uL (1.0-4.8); Metamyelocytes # (M) 0.92 k/uL (0); Metamyelocytes % 10 %; Monocytes # (M) 0.28 k/uL (0-1.0); Myelocytes # (M) 0.37 k/uL (0); Myelocytes % 4 %; Neutrophils % (M) 66 %; Nucleated Red Blood Cells 3 /100 WBC (0-0); Polychromasia Present; Total Cells Counted 200; Toxic Vacuolation Present; WBC 9.2 k/uL (3.8-10.6)
[2017-08-25 09:01] LABS: Large Platelets Present; Poikilocytosis (M) Present
[2017-08-25] MEDS ORDERED: LACTULOSE 20 GM/30 ML CUP PO SCH (10:45)
[2017-08-25 11:05] LABS: Glucose,Whole Blood 164 mg/dL (75-99)
[2017-08-25 11:23] LABS: Glucose,Whole Blood 121 mg/dL (75-99)
--- NOTE | 2017-08-25 13:59 | P.PN ---
Subjective Progress Note Date: 08/25/17 Principal diagnosis: Acute right upper lobe solid patient, possibly gram-negative pneumonia, possibly healthcare acquired Wicho is a 51-year-old white male patient of Dr. Reyes and Dr. Fuchs, has a past medical history positive for severe advanced oxygen-dependent chronic obstructive pulmonary disease, ongoing nicotine dependence, chronic pulmonary scarring in the upper lobes related to a history of bilateral spontaneous pneumothorax types to at a younger age requiring chest tube insertion and pleurodesis, anxiety, depression, chronic pain syndrome, macrocytic anemia, benign prostatic hypertrophy, and history of abdominal aortic aneurysm. Patient presented to the emergency department on 08/19/2017 complaints of worsening dyspnea, fatigue, decreased exercise tolerance, tachypnea and tachycardia. Patient wears oxygen at 2-3 L on the regular basis, however per EMS patient was oxygenating at about 81%. Did complain of significant chest pressure, denied any radiation, diaphoresis. Denied any nausea or vomiting. Patient had a cough, however no fever, unable to bring up any phlegm. Denied any lightheadedness, dizziness or syncopal episodes. Chest x-ray from 2017 showed stable biapical scarring, and stable diffuse pulmonary interstitial opacities, no acute process was seen. CTA chest was completed and showed no evidence for acute pulmonary embolism, advanced emphysematous changes with prominent bilateral fibrosis, evidence of right lung surgery with volume loss and old granuloma With this disease. Right upper lung acute consolidation was difficult to exclude, appear to be more prominent compared to previous CT chest studies. Patient did have a low-grade fever on presentation of 100.8F, otherwise remained afebrile while inpatient. She was in significant respiratory distress , with labored breathing, and use of accessory muscles and tachypnea, he was also tachycardic with a heart rate up to 133 bpm, tachypneic with respiratory rate up to 28 breaths per minute, but hemodynamically remains stable. Patient was recently hospitalized with a mild COPD exacerbation complicated by purulent tracheobronchitis, he was treated with oral antibiotics steroids and bronchodilators, improved and was discharged home in stable condition. Unfortunately patient continues to smoke, is spite multiple hospitalizations for COPD exacerbations and recurrent respiratory infections. She was discharged home on 08/11/2017 on oral course of Ceftin, prednisone taper, and maintenance inhalers and nebulized treatments. Blood and sputum cultures are pending at this time, patient was started on Levaquin, bronchodilator treatments , IV steroids, IV fluids and was admitted for further management. On 08/20/2017 patient seen in follow-up on medical surgical floor. Remains very dyspneic with any exertion, denies any phlegm production, does have frequent nonproductive congested cough. Lung sounds are positive for some scattered rales over left lower lobe, there is prolongation of expiratory phase. Afebrile overnight, vital signs are stable, currently on 4 L per nasal cannula with O2 sat at 98%. Hemodynamically stable, less tachycardic on today' s exam, with a heart rate up to 104 BPM. Overall improving, patient is being treated with empiric antibiotics in the form of Levaquin, IV steroids, and bronchodilator treatments. The plan is to proceed with bronchoscopy with BAL for lower respiratory tract sputum samples. The patient has been nothing by mouth since midnight, and a procedure scheduled for follow-up [address] Salinas On 08/21/2017 the patient is being seen in follow-up. The patient underwent a bronchoscopy and bronchial alveolar lavage of the right upper lobe yesterday. Following the procedure the patient had vigorous cough and. This caused significant amount of distress and oxygen desaturation. The patient had to be moved intensive care unit for further monitoring. Immediately after he arrived to the intensive care unit the patient felt better and his cough subsided and his heart rate and respiratory rate improved and he was actually taking that was somewhat between 3-4 L of oxygen by nasal cannula. His chest x-ray showed no evidence of any pneumothorax. A son that, the patient got transferred back to his medical floor. On today's evaluation, he is essentially the same. Still feeling slightly better compared to yesterday. No frequent coughing spells. No fever or chills. Remains in the same antibiotic coverage which included a combination of Levaquin and Zosyn and I'm awaiting the results of the bronchioloalveolar lavage was collected yesterday during bronchoscopy. No hemoptysis. No pleurisy. No chest pain. No other complaints otherwise. Noted the chest x-ray was done immediately after the bronchoscopy showed no evidence of any pneumothorax and there was a right upper lobe consolidation and a new right lower lobe infiltrate. No leukocytosis. His hemoglobin is at 7.0 and the patient has a significant drop compared to yesterday and this is to be followed up as the patient does not have any pulmonary bleeding or any gastrointestinal bleeding. There is an obvious 3 g drop in hemoglobin that needs to be washed 4 and hemoglobin is to be repeated. On 08/22/2017, Wicho is doing well and has no specific complaints. The bronchoscopy and the bronchioloalveolar lavage was completed and the patient does not have any fever or chills and I'm still awaiting for the final results of the bronchioloalveolar lavage. He is and accommodation of Zosyn and Levaquin. He is also on IV Solu-Medrol. His last bronchus spastic and wheezy. Hemoglobin was repeated and the patient's hemoglobin is currently above 8. No evidence of any acute bleeding. No respiratory distress for now. No fever or chills. No altered mentation. Is tolerating diet. He is having some nighttime insomnia. His white cell count is not elevated at 4.8. Hemoglobin is at 8.7. The patient is seen again today 08/23/2017 in follow-up in the oncology unit. He is currently resting quite comfortably in bed. He is breathing easier today as compared to yesterday. Maintaining good O2 saturations in the 90s on 3 L/m per nasal cannula now. Bronchial wash has been positive for Dary only thus far. White count 6.0. Hemoglobin 10.1. Creatinine 0.72. On 08/24/2017, I'm seeing this patient for a follow-up. He is afebrile hemodynamically stable. No worsening shortness of breath. All of the cultures from the bronchioloalveolar lavage of the right upper lobe came back negative and the patient had some yeast/Dary which is probably a colonizer. In any rate, he is still on antibiotics and steroids. He is looking well. He is COPD is end-stage and advanced. He has developed persistent chronic consolidation of the right upper lobe. He has been doing well otherwise. No altered mentation. No cough or sputum production. Hemoglobin has been stable. Tolerating his diet. No other significant events over the past 24 hours. On 08/25/2017 patient seen in follow-up on oncology floor. He is having persistent congested productive cough with production of large amount of yellow sputum. He maintains afebrile, vital signs are stable, he is 94% on room air, slightly tachycardic at times, especially during his coughing spells. Bronchial wash cultures were positive for Dary glabrata and Dary tropicalis, and the patient was initiated on Diflucan, he continues on Levaquin , IV steroids, and nebulized treatments. Complains of lower back pain, which he says is exacerbated by his persistent coughing. Today's lab work shows WBC is within normal limits at 9.2, hemoglobin is up to 11.9, he was 137, potassium is 5.0, chloride is 95, BUN is 21, creatinine is 0.70. Arrangements are in progress for transfer to subacute rehab, [facility] today. Objective - Vital Signs Vital signs: Vital Signs Temp 97.4 F L 08/25/17 07:57 Pulse 118 H 08/25/17 12:16 Resp 20 08/25/17 12:16 BP 104/58 08/25/17 07:57 Pulse Ox 94 L 08/25/17 12:06 Intake & Output 08/24/17 08/25/17 08/25/17 18:59 06:59 18:59 Intake Total 650 150 Output Total 1000 Balance -350 150 Intake: IV 600 150 Sodium Chloride 0.9% 1, 600 150 000 ml @ 75 mls/hr IV . [id number] Rx#:[id number] Intake, IV Titration 50 Amount Piperacillin-Tazobactam 3 50 .375 gm In Dextrose/Water 1 50ml.bag @ 12.5 mls/hr IVPB Q8HR [facility] Rx#: [id number] Output: Urine 1000 Other: Voiding Method Urinal Urinal # Voids 1 - Exam - Constitutional General appearance: mild distress, thin - EENT Eyes: PERRLA, poor dentition, normal appearance ENT: NA/AT Ears: bilateral: normal - Neck Neck: no lymphadenopathy Carotids: bilateral: upstroke normal Thyroid: bilateral: normal size - Respiratory Respiratory: bilateral: diminished, prolonged expiration, some scattered rales and rhonchi over left lower lobe - Cardiovascular Heart sounds: normal: S1, S2 leg Peripheral Edema: absent: None foot Peripheral Edema: absent: None - Gastrointestinal General gastrointestinal: no organomegaly, soft, no tenderness - Integumentary Integumentary: normal turgor, pale - Neurologic Neurologic: CNII-XII intact - Musculoskeletal Musculoskeletal: gait normal, generalized weakness, strength equal bilaterally - Psychiatric Psychiatric: A&O x's 3, appropriate affect, intact judgment & insight - Labs CBC & Chem 7: 08/25/17 07:19 08/25/17 07:19 Labs: Abnormal Lab Results - Last 24 Hours (Table) 08/23/17 08/24/17 08/24/17 Range/Units 07:34 17:37 20:19 RBC (4.30-5.90) m/uL Hgb (13.0-17.5) gm/dL Hct (39.0-53.0) % MCV (80.0-100.0) fL RDW (11.5-15.5) % Metamyelocytes # (Man) (0) k/uL Myelocytes # (Manual) (0) k/uL Nucleated RBCs (0-0) /100 WBC Chloride (98-107) mmol/L BUN (9-20) mg/dL POC Glucose (mg/dL) 164 H 123 H 120 H (75-99) mg/dL 08/25/17 08/25/17 08/25/17 Range/Units 07:19 07:19 11:21 RBC 3.73 L (4.30-5.90) m/uL Hgb 11.9 L (13.0-17.5) gm/dL Hct 38.4 L (39.0-53.0) % MCV 103.1 H (80.0-100.0) fL RDW 19.5 H (11.5-15.5) % Metamyelocytes # (Man) 0.92 H (0) k/uL Myelocytes # (Manual) 0.37 H (0) k/uL Nucleated RBCs 3 H (0-0) /100 WBC Chloride 95 L (98-107) mmol/L BUN 21 H (9-20) mg/dL POC Glucose (mg/dL) 121 H (75-99) mg/dL Microbiology - Last 24 Hours (Table) 08/20/17 14:10 Fungal Culture - Preliminary Bronchial Washings - Right Dary glabrata Dary tropicalis 08/19/17 05:10 Blood Culture - Final Blood No Growth after 144 hours Assessment and Plan Plan: Assessment: #1. Acute on chronic hypoxic respiratory failure secondary to a possible right upper lobe pneumonia, patient presented with low-grade fever, difficulty breathing, chest wall tenderness, chest congestion. And the CTA chest showed chronic biapical scarring, however acute right upper lobe consolidation was difficult to exclude, and appeared more prominent compared to the previous CT chest, the patient has been treated with broad-spectrum antibiotics and currently is on Levaquin and Zosyn. Bronchoscopy and bronchial lavage of the right upper lobe was done and the primary cultures yielded no new growth in terms of bacteria and there was yeast consistent with Dary. The patient was kept on the same treatment, and Diflucan was added. #2. Acute COPD exacerbation and purulent tracheobronchitis, improving slowly #3. Advanced COPD, oxygen dependent #4. Ongoing nicotine dependence #5. History of myelodysplastic syndrome #6. Anemia of chronic disease #7. Chronic biapical lung scarring, related to previous history of bilateral spontaneous pneumothoraxes, and pleurodesis at a younger age #8. Frequent hospitalizations for recurrent lung infections #9. History of abdominal aortic aneurysm #10. Anxiety, depression Plan: Bronchial wash cultures remain negative, with the exception of Dary, patient was started on Diflucan. Continue same antibiotic coverage, Levaquin and Zosyn , patient is afebrile, there is no leukocytosis. Patient is still having persistent congestive cough, with production of whitish yellow phlegm. Vital signs remain stable, increase activity as tolerated. Possible discharge to subacute rehab, [facility]. I performed a history & physical examination of the patient and discussed their management with my nurse practitioner, Corie Dasilva. I reviewed the nurse practitioner's note and agree with the documented findings and plan of care. Lung sounds are positive for scattered rhonchi and rales. The findings and the impression was discussed with the patient. I attest to the documentation by the nurse practitioner. Time with Patient: Less than 30
[2017-08-25] MEDS ORDERED: ALPRAZolam 0.25 MG TAB PO STA ×2 (14:44)
[2017-08-25] MEDS ORDERED: PROMETHAZ-COD 6.25-10 MG/5 ML 5 ML CUP PO PRN (14:46)
[2017-08-25] MEDS: LACTULOSE 20 GM/30 ML CUP PO SCH ×2 (16:44→21:06)
[2017-08-25] MEDS ORDERED: MORPHINE SULFATE 4 MG/0.8 ML SYRINGE (INJ) IVP PRN (16:56)
[2017-08-25] MEDS: LORazepam 2 MG/ML INJ IV PRN (17:08)
[2017-08-25] MEDS: methylPREDNISolone SOD SUCCI 125 MG/2 ML VIAL IV SCH ×2 (17:08→23:15)
[2017-08-25 17:33] LABS: Glucose,Whole Blood 137 mg/dL (75-99)
--- NOTE | 2017-08-25 18:53 | PN ---
PROGRESS NOTE DATE OF SERVICE: 08/25/2017 This 51-year-old gentleman was admitted with COPD acute exacerbation with right upper pneumonia, is improving significantly. No chest pain. No palpitation. No fever. Patient complaining of generalized tiredness and weakness. EXAM: Alert and oriented times three. Pulse 121, blood pressure 100/62, respiration 14, temperature normal, pulse ox 97% on BiPAP. HEENT: Conjunctivae normal. Neck: No jugular venous distention. Cardiovascular: S1, S2. Respiratory: Breath sounds diminished in the bases. Scattered rhonchi and crackles. Expiratory wheezing. Abdomen is soft, nontender. Legs no edema. No swelling. Central nervous system: No focal deficits. LAB STUDIES: WBC 11.1, hemoglobin 7.9. ASSESSMENT: 1. Chronic obstructive pulmonary disease acute exacerbation with right upper lobe pneumonia possibly gram-negative with acute hypoxic respiratory failure status post bronchoscopy. 2. Dary tropicalis from the sputum culture. 3. Normocytic anemia of chronic disease. 4. Continued ongoing nicotine dependence, dementia, history of myelodysplastic syndrome. RECOMMENDATIONS AND DISCUSSION: Continue current medications, management and symptomatic treatment. Otherwise, PT/OT evaluation. Guarded prognosis. Further recommendations to follow. MMODL / IJN: [id number] /
[2017-08-25 20:14] LABS: Glucose,Whole Blood 180 mg/dL (75-99)
[2017-08-25] MEDS: ATORVASTATIN 20 MG TAB PO SCH (21:05)
[2017-08-25] MEDS: MONTELUKAST 10 MG TAB PO SCH (21:05)
[2017-08-26] MEDS: IPRATROPIUM-ALBUTEROL 3 ML NEB INHALATION PRN (04:59)
[2017-08-26] MEDS: oxyCODONE-APAP 10-325MG 1 EACH TAB PO PRN ×3 (06:08→22:01)
[2017-08-26] MEDS: methylPREDNISolone SOD SUCCI 125 MG/2 ML VIAL IV SCH ×3 (06:08→17:07)
[2017-08-26 07:29] LABS: Glucose,Whole Blood 129 mg/dL (75-99)
[2017-08-26] MEDS: INSULIN ASPART 100 UNIT/ML 1 ML 10 ML VIAL SQ SCH ×4 (07:38→22:00)
[2017-08-26] MEDS: PIPERACILLIN-TAZOBACTAM 3.375 GM in DEXTROSE/WATER 1 50ML.BAG IVPB SCH ×2 (08:37→17:06)
[2017-08-26] MEDS: SODIUM CHLORIDE 0.9% 1,000 ML IV SCH (08:38)
[2017-08-26] MEDS: LORazepam 2 MG/ML INJ IV PRN ×2 (08:38→15:47)
[2017-08-26] MEDS: LACTULOSE 20 GM/30 ML CUP PO SCH ×3 (08:39→22:01)
[2017-08-26] MEDS: ASPIRIN 81 MG PO SCH (08:39)
[2017-08-26] MEDS: buPROPion XL 150 MG TAB.ER.24H PO SCH (08:39)
[2017-08-26] MEDS: DOCUSATE 100 MG CAP PO SCH ×2 (08:39→19:41)
[2017-08-26] MEDS: HEPARIN SODIUM,PORCINE 5,000 UNIT/ML 1 ML VIAL SQ SCH ×2 (08:39→22:02)
[2017-08-26] MEDS: PANTOPRAZOLE 40 MG TABLET PO SCH (08:40)
[2017-08-26] MEDS: LEVOFLOXACIN 500 MG TAB PO SCH (08:40)
[2017-08-26] MEDS: FLUCONAZOLE 100 MG TAB PO SCH (08:41)
[2017-08-26] MEDS: IPRATROPIUM-ALBUTEROL 3 ML NEB INHALATION SCH ×4 (09:24→20:30)
[2017-08-26] MEDS: BUDESONIDE 1 MG/2 ML NEBU INHALATION SCH ×2 (09:24→20:30)
[2017-08-26] MEDS: FORMOTEROL FUMARATE 20 MCG/2 ML NEBU INHALATION SCH ×2 (09:24→20:30)
[2017-08-26 11:41] LABS: Glucose,Whole Blood 141 mg/dL (75-99)
--- NOTE | 2017-08-26 14:34 | P.PN ---
Subjective Progress Note Date: 08/26/17 Principal diagnosis: Acute right upper lobe solid patient, possibly gram-negative pneumonia, possibly healthcare acquired Wicho is a 51-year-old white male patient of Dr. Reyes and Dr. Fuchs, has a past medical history positive for severe advanced oxygen-dependent chronic obstructive pulmonary disease, ongoing nicotine dependence, chronic pulmonary scarring in the upper lobes related to a history of bilateral spontaneous pneumothorax types to at a younger age requiring chest tube insertion and pleurodesis, anxiety, depression, chronic pain syndrome, macrocytic anemia, benign prostatic hypertrophy, and history of abdominal aortic aneurysm. Patient presented to the emergency department on 08/19/2017 complaints of worsening dyspnea, fatigue, decreased exercise tolerance, tachypnea and tachycardia. Patient wears oxygen at 2-3 L on the regular basis, however per EMS patient was oxygenating at about 81%. Did complain of significant chest pressure, denied any radiation, diaphoresis. Denied any nausea or vomiting. Patient had a cough, however no fever, unable to bring up any phlegm. Denied any lightheadedness, dizziness or syncopal episodes. Chest x-ray from 2017 showed stable biapical scarring, and stable diffuse pulmonary interstitial opacities, no acute process was seen. CTA chest was completed and showed no evidence for acute pulmonary embolism, advanced emphysematous changes with prominent bilateral fibrosis, evidence of right lung surgery with volume loss and old granuloma With this disease. Right upper lung acute consolidation was difficult to exclude, appear to be more prominent compared to previous CT chest studies. Patient did have a low-grade fever on presentation of 100.8F, otherwise remained afebrile while inpatient. She was in significant respiratory distress , with labored breathing, and use of accessory muscles and tachypnea, he was also tachycardic with a heart rate up to 133 bpm, tachypneic with respiratory rate up to 28 breaths per minute, but hemodynamically remains stable. Patient was recently hospitalized with a mild COPD exacerbation complicated by purulent tracheobronchitis, he was treated with oral antibiotics steroids and bronchodilators, improved and was discharged home in stable condition. Unfortunately patient continues to smoke, is spite multiple hospitalizations for COPD exacerbations and recurrent respiratory infections. She was discharged home on 08/11/2017 on oral course of Ceftin, prednisone taper, and maintenance inhalers and nebulized treatments. Blood and sputum cultures are pending at this time, patient was started on Levaquin, bronchodilator treatments , IV steroids, IV fluids and was admitted for further management. On 08/20/2017 patient seen in follow-up on medical surgical floor. Remains very dyspneic with any exertion, denies any phlegm production, does have frequent nonproductive congested cough. Lung sounds are positive for some scattered rales over left lower lobe, there is prolongation of expiratory phase. Afebrile overnight, vital signs are stable, currently on 4 L per nasal cannula with O2 sat at 98%. Hemodynamically stable, less tachycardic on today' s exam, with a heart rate up to 104 BPM. Overall improving, patient is being treated with empiric antibiotics in the form of Levaquin, IV steroids, and bronchodilator treatments. The plan is to proceed with bronchoscopy with BAL for lower respiratory tract sputum samples. The patient has been nothing by mouth since midnight, and a procedure scheduled for follow-up [address] Salinas On 08/21/2017 the patient is being seen in follow-up. The patient underwent a bronchoscopy and bronchial alveolar lavage of the right upper lobe yesterday. Following the procedure the patient had vigorous cough and. This caused significant amount of distress and oxygen desaturation. The patient had to be moved intensive care unit for further monitoring. Immediately after he arrived to the intensive care unit the patient felt better and his cough subsided and his heart rate and respiratory rate improved and he was actually taking that was somewhat between 3-4 L of oxygen by nasal cannula. His chest x-ray showed no evidence of any pneumothorax. A son that, the patient got transferred back to his medical floor. On today's evaluation, he is essentially the same. Still feeling slightly better compared to yesterday. No frequent coughing spells. No fever or chills. Remains in the same antibiotic coverage which included a combination of Levaquin and Zosyn and I'm awaiting the results of the bronchioloalveolar lavage was collected yesterday during bronchoscopy. No hemoptysis. No pleurisy. No chest pain. No other complaints otherwise. Noted the chest x-ray was done immediately after the bronchoscopy showed no evidence of any pneumothorax and there was a right upper lobe consolidation and a new right lower lobe infiltrate. No leukocytosis. His hemoglobin is at 7.0 and the patient has a significant drop compared to yesterday and this is to be followed up as the patient does not have any pulmonary bleeding or any gastrointestinal bleeding. There is an obvious 3 g drop in hemoglobin that needs to be washed 4 and hemoglobin is to be repeated. On 08/22/2017, Wicho is doing well and has no specific complaints. The bronchoscopy and the bronchioloalveolar lavage was completed and the patient does not have any fever or chills and I'm still awaiting for the final results of the bronchioloalveolar lavage. He is and accommodation of Zosyn and Levaquin. He is also on IV Solu-Medrol. His last bronchus spastic and wheezy. Hemoglobin was repeated and the patient's hemoglobin is currently above 8. No evidence of any acute bleeding. No respiratory distress for now. No fever or chills. No altered mentation. Is tolerating diet. He is having some nighttime insomnia. His white cell count is not elevated at 4.8. Hemoglobin is at 8.7. The patient is seen again today 08/23/2017 in follow-up in the oncology unit. He is currently resting quite comfortably in bed. He is breathing easier today as compared to yesterday. Maintaining good O2 saturations in the 90s on 3 L/m per nasal cannula now. Bronchial wash has been positive for Dary only thus far. White count 6.0. Hemoglobin 10.1. Creatinine 0.72. On 08/24/2017, I'm seeing this patient for a follow-up. He is afebrile hemodynamically stable. No worsening shortness of breath. All of the cultures from the bronchioloalveolar lavage of the right upper lobe came back negative and the patient had some yeast/Dary which is probably a colonizer. In any rate, he is still on antibiotics and steroids. He is looking well. He is COPD is end-stage and advanced. He has developed persistent chronic consolidation of the right upper lobe. He has been doing well otherwise. No altered mentation. No cough or sputum production. Hemoglobin has been stable. Tolerating his diet. No other significant events over the past 24 hours. On 08/25/2017 patient seen in follow-up on oncology floor. He is having persistent congested productive cough with production of large amount of yellow sputum. He maintains afebrile, vital signs are stable, he is 94% on room air, slightly tachycardic at times, especially during his coughing spells. Bronchial wash cultures were positive for Dary glabrata and Dary tropicalis, and the patient was initiated on Diflucan, he continues on Levaquin , IV steroids, and nebulized treatments. Complains of lower back pain, which he says is exacerbated by his persistent coughing. Today's lab work shows WBC is within normal limits at 9.2, hemoglobin is up to 11.9, he was 137, potassium is 5.0, chloride is 95, BUN is 21, creatinine is 0.70. Arrangements are in progress for transfer to subacute rehab, [facility] today. On 08/26/2017 patient was seen in follow-up. Yesterday patient had an acute episode of respiratory distress, his workup breathing was increased, he was tachypneic and tachycardic, congested, and wheezy. Solu-Medrol was increased back to 60 mg every 6 hours, he continues on Levaquin and Zosyn, and Diflucan for evidence of Dary species in his brother wash fungal cultures. Ativan and morphine were added yesterday for patient's aggressive anxiety, and breathlessness. CODE STATUS was discussed and the patient admitted decision for CODE STATUS of DO NOT RESUSCITATE, and he was recommended to proceed with comfort care. Yesterday the patient and discussed his poor prognosis with Dr. Fuchs, and his family, and wanted to proceed with hospice care. Today he is undecided, and would like to proceed with medical treatment, antibiotics, nebulized treatments. On today's exam his breathing is much easier, he is not tachypneic or tachycardic, lung sounds are positive for some scattered rhonchi, but overall improved from yesterday's exam, less wheezy. He is on 5 L per nasal cannula his O2 sat 93%. He is less anxious, he is afebrile. Remains stable from pulmonary standpoint. Discharge planning is in progress for transfer to the subacute rehab today, from pulmonary standpoint patient is stable for transfer there today Objective - Vital Signs Vital signs: Vital Signs Temp 97.8 F 08/26/17 07:55 Pulse 102 H 08/26/17 09:47 Resp 32 H 08/26/17 07:55 BP 98/60 08/26/17 07:55 Pulse Ox 93 L 08/26/17 09:26 Intake & Output 08/25/17 08/26/17 08/26/17 18:59 06:59 18:59 Intake Total 150 950 Output Total 200 1100 Balance -50 -150 Weight 61.235 kg Intake: IV 150 950 Piperacillin-Tazobactam 3 50 .375 gm In Dextrose/Water 1 50ml.bag @ 12.5 mls/hr IVPB Q8HR [facility] Rx#: [id number] Sodium Chloride 0.9% 1, 150 900 000 ml @ 75 mls/hr IV . [id number] [facility] Rx#:[id number] Output: Urine 200 1100 Other: Voiding Method Urinal Urinal - Exam - Constitutional General appearance: mild distress, thin - EENT Eyes: PERRLA, poor dentition, normal appearance ENT: NA/AT Ears: bilateral: normal - Neck Neck: no lymphadenopathy Carotids: bilateral: upstroke normal Thyroid: bilateral: normal size - Respiratory Respiratory: bilateral: diminished, prolonged expiration, some scattered rhonchi over left lower lobe - Cardiovascular Heart sounds: normal: S1, S2 leg Peripheral Edema: absent: None foot Peripheral Edema: absent: None - Gastrointestinal General gastrointestinal: no organomegaly, soft, no tenderness - Integumentary Integumentary: normal turgor, pale - Neurologic Neurologic: CNII-XII intact - Musculoskeletal Musculoskeletal: gait normal, generalized weakness, strength equal bilaterally - Psychiatric Psychiatric: A&O x's 3, appropriate affect, intact judgment & insight - Labs CBC & Chem 7: 08/25/17 07:19 08/25/17 07:19 Labs: Abnormal Lab Results - Last 24 Hours (Table) 08/25/17 08/25/17 08/26/17 Range/Units 17:30 20:12 07:22 POC Glucose (mg/dL) 137 H 180 H 129 H (75-99) mg/dL 08/26/17 Range/Units 11:36 POC Glucose (mg/dL) 141 H (75-99) mg/dL Microbiology - Last 24 Hours (Table) 08/20/17 14:10 Fungal Culture - Preliminary Bronchial Washings - Right Dary glabrata Dary tropicalis Assessment and Plan Plan: Assessment: #1. Acute on chronic hypoxic respiratory failure secondary to a possible right upper lobe pneumonia, patient presented with low-grade fever, difficulty breathing, chest wall tenderness, chest congestion. And the CTA chest showed chronic biapical scarring, however acute right upper lobe consolidation was difficult to exclude, and appeared more prominent compared to the previous CT chest, the patient has been treated with broad-spectrum antibiotics and currently is on Levaquin and Zosyn. Bronchoscopy and bronchial lavage of the right upper lobe was done and the primary cultures yielded no new growth in terms of bacteria and there was yeast consistent with Dary. The patient was kept on the same treatment, and Diflucan was added. #2. Acute COPD exacerbation and purulent tracheobronchitis, improving slowly #3. Advanced COPD, oxygen dependent #4. Ongoing nicotine dependence #5. History of myelodysplastic syndrome #6. Anemia of chronic disease #7. Chronic biapical lung scarring, related to previous history of bilateral spontaneous pneumothoraxes, and pleurodesis at a younger age #8. Frequent hospitalizations for recurrent lung infections #9. History of abdominal aortic aneurysm #10. Anxiety, depression Plan: Patient has changed his mind about him for care, and would like to proceed with medical treatment at this time. Overall he is improved today, no respiratory distress, his breathing is easier, still has the productive cough, but less congested, less wheezy. Afebrile, bronchial wash cultures remain negative, with the exception of Dary, patient was started on Diflucan. At this time patient is stable for transfer to the subacute rehab today on 7 more days of Levaquin, we will stop the Augmentin. Patient can continue on oral Diflucan, prednisone taper, nebulized treatments. Prognosis is poor in view of poor lung function, recurrent lung infections, poor functional status, multiple comorbidities. I performed a history & physical examination of the patient and discussed their management with my nurse practitioner, Corie Dasilva. I reviewed the nurse practitioner's note and agree with the documented findings and plan of care. Lung sounds are positive for scattered rhonchi and rales. The findings and the impression was discussed with the patient. I attest to the documentation by the nurse practitioner. Time with Patient: Less than 30
--- NOTE | 2017-08-26 14:57 | P.DS ---
Providers Date of admission: 08/19/17 07:51 Expected date of discharge: 08/26/17 Attending physician: Blake Cherry Consults: 08/19/17 07:51 Consult Physician Routine Consulting Provider: Peace Latham Consult Reason/Comments: COPD Do you want consulting provider notified?: Yes Primary care physician: [facility] Course: Final Diagnoses: 1. Acute COPD exacerbation right upper lobe pneumonia, possibly gram-negative with acute on chronic hypoxic respiratory failure. Status post bronchoscopy. Dary tropicalis from sputum culture. 2. Normocytic anemia of chronic disease 3. Ongoing nicotine dependence 4. History of dementia 5. History of myelodysplastic syndrome 6. Chronic hypoxic respiratory failure 7. History of bilateral spontaneous pneumothoraxes and pleurodesis 8. History of abdominal aortic aneurysm 9. Anxiety, depression. Hospital course:This is a 51-year-old gentleman admitted with acute COPD exacerbation, tracheobronchitis, right upper pneumonia. Evaluated by pulmonary.status post bronchoscopy. Sputum culture positive for Dary tropicalis. Maintained on IV antibiotics, nebulized bronchodilators, steroids. Yesterday developed respiratory distress, CODE STATUS changed to DO NOT RESUSCITATE. Poor prognosis discussed with patient and family with recommendations of comfort care as per pulmonary. Patient requested informational hospice meeting today, currently undecided. Today ,significant clinical improvement. Cleared by pulmonary for discharge. Patient will be discharged in a stable condition to [facility] subacute rehab in a stable condition with guarded prognosis. PHYSICAL EXAM: GENERAL: VSS, resp. Effort increased, alert and oriented 3.CARDIOVASCULAR: S1 , S2 muffled. No murmur RESPIRATION: Breath sounds diminished in the bases. No rhonchi, fine bibasilar crackles, greater on the left. ABDOMEN: Soft, nontender . Bowel sounds heard.NERVOUS SYSTEM: No focal deficits. The impression and plan of care has been dictated as directed. : I performed a history and examination of this patient, discussed the same with the dictator. I agree with the dictator's note ,documented as a scribe. Any additional findings or plans will be noted. Time taken: 35 minutes Patient Condition at Discharge: Stable Plan - Discharge Summary Discharge Rx Participant: No New Discharge Prescriptions: New Docusate [Colace] 100 mg PO BID #60 cap Fluconazole [Diflucan] 200 mg PO DAILY 7 Days #14 tab Lactulose [Cephulac] 30 gm PO TID #2700 ml Pantoprazole [Protonix] 40 mg PO AC-BRKFST #30 tablet. Amoxicillin/Potassium Clav [Augmentin 875-125 Tablet] 1 tab PO BID #14 tab ALPRAZolam [Xanax] 0.5 mg PO TID PRN #10 tab PRN Reason: Anxiety Ipratropium-Albuterol Nebulize [Duoneb 0.5 mg-3 mg/3 ml Soln] 3 ml INHALATION Q4H PRN ampul.neb PRN Reason: Shortness Of Breath Or Wheezing Ipratropium-Albuterol Nebulize [Duoneb 0.5 mg-3 mg/3 ml Soln] 3 ml INHALATION RT-QID ampul.neb predniSONE 10 mg PO DIRECTED #1 tab Promethaz-Cod 6.25-10 mg/5 ml [Phenergan with Codeine] 5 ml PO Q6H PRN #30 ml PRN Reason: Cold Symptoms Continue Tiotropium 18 Mcg/Puff [Spiriva] 1 cap INHALATION RT-DAILY Fluticasone/Salmeterol [Advair 250-50 Diskus] 1 puff INHALATION RT-BID Montelukast [Singulair] 10 mg PO HS Aspirin EC [Ecotrin Low Dose] 81 mg PO DAILY #30 tablet. Atorvastatin [Lipitor] 20 mg PO HS #30 tab Epoetin Joe [Procrit] 20,000 unit SQ PADILLA buPROPion XL [Wellbutrin XL] 150 mg PO DAILY fentaNYL 25MCG/HR PATCH [Duragesic 25MCG/HR] 1 patch TRANSDERM Q72H #1 patch oxyCODONE HCL/ACETAMINOPHEN [Percocet 10-325 mg] 1 tab PO Q6HR PRN #12 tab PRN Reason: Pain predniSONE 20 mg PO DAILY #0 Discontinued Levofloxacin [Levaquin] 500 mg PO DAILY Discharge Medication List Fluticasone/Salmeterol [Advair 250-50 Diskus] 1 puff INHALATION RT-BID 10/09/16 [History] Tiotropium 18 Mcg/Puff [Spiriva] 1 cap INHALATION RT-DAILY 10/09/16 [History] Montelukast [Singulair] 10 mg PO HS 01/05/17 [History] Aspirin EC [Ecotrin Low Dose] 81 mg PO DAILY #30 tablet. 05/30/17 [Rx] Atorvastatin [Lipitor] 20 mg PO HS #30 tab 05/30/17 [Rx] Epoetin Joe [Procrit] 20,000 unit SQ PADILLA 08/10/17 [History] buPROPion XL [Wellbutrin XL] 150 mg PO DAILY 08/19/17 [History] Amoxicillin/Potassium Clav [Augmentin 875-125 Tablet] 1 tab PO BID #14 tab 08/25 [Rx] Docusate [Colace] 100 mg PO BID #60 cap 08/25/17 [Rx] Fluconazole [Diflucan] 200 mg PO DAILY 7 Days #14 tab 08/25/17 [Rx] Lactulose [Cephulac] 30 gm PO TID #2700 ml 08/25/17 [Rx] Pantoprazole [Protonix] 40 mg PO AC-BRKFST #30 tablet. 08/25/17 [Rx] ALPRAZolam [Xanax] 0.5 mg PO TID PRN #10 tab 08/26/17 [Rx] Ipratropium-Albuterol Nebulize [Duoneb 0.5 mg-3 mg/3 ml Soln] 3 ml INHALATION Q4H PRN ampul.neb 08/26/17 [Rx] Ipratropium-Albuterol Nebulize [Duoneb 0.5 mg-3 mg/3 ml Soln] 3 ml INHALATION RT -QID ampul.neb 08/26/17 [Rx] Promethaz-Cod 6.25-10 mg/5 ml [Phenergan with Codeine] 5 ml PO Q6H PRN #30 ml [Rx] fentaNYL 25MCG/HR PATCH [Duragesic 25MCG/HR] 1 patch TRANSDERM Q72H #1 patch [Rx] oxyCODONE HCL/ACETAMINOPHEN [Percocet 10-325 mg] 1 tab PO Q6HR PRN #12 tab 08/26 [Rx] predniSONE 10 mg PO DIRECTED #1 tab 08/26/17 [Rx] predniSONE 20 mg PO DAILY #0 08/26/17 [Rx] Follow up Appointment(s)/Referral(s): Jasbir Mcmanus MD [REFERRING] - 1 Week Yang Corrigan DO [Primary Care Provider] - 1 Week (after dc from ECF) Efraín Salinas MD [STAFF PHYSICIAN] - 2 Weeks Activity/Diet/Wound Care/Special Instructions: [facility] Diet: Cardiac Activity: limited till F/U cbc,bmp in 3 days
[2017-08-26 17:26] LABS: Glucose,Whole Blood 120 mg/dL (75-99)
[2017-08-26] MEDS: MORPHINE ORAL SOLN 10 MG/5 ML CUP PO PRN (19:40)
[2017-08-26] MEDS: MONTELUKAST 10 MG TAB PO SCH (19:42)
[2017-08-26] MEDS: ATORVASTATIN 20 MG TAB PO SCH (19:42)
[2017-08-26 20:17] LABS: Glucose,Whole Blood 168 mg/dL (75-99)
--- NOTE | 2017-08-26 21:29 | PN ---
PROGRESS NOTE DATE OF SERVICE: 08/26/2017. INTERVAL HISTORY: This 51-year-old gentleman admitted with COPD exacerbation is being closely monitored. ECF rehab is being planned. No chest pain. No palpitations. No fever. Slightly short of breath. EXAM: Alert and oriented times three. Pulse 112, blood pressure 100/60, respiration 24, temperature 97.7, pulse ox 90% on 5 L. HEENT is conjunctivae normal. NECK: No jugular venous distention. Cardiovascular: S1, S2 muffled. Respiratory: Breath sounds diminished in the bases. A few scattered rhonchi and crackles. Abdomen is soft, nontender. Legs are no edema, no swelling. LABS: Fungal culture showing Dary glabrata and Dary tropicalis. ASSESSMENT: 1. Chronic obstructive pulmonary disease exacerbation with right upper lobe pneumonia possibly gram-negative with acute hypoxic respiratory failure status post bronchoscopy with Dary tropicalis and Dary glabrata from the sputum culture. 2. Normocytic anemia chronic disease. 3. Continued ongoing nicotine dependence. 4. Dementia. 5. History of myelodysplastic syndrome. 6. Gait dysfunction. RECOMMENDATIONS AND DISCUSSION: 1. Recommend to continue current medications, management and symptomatic treatment. 2. Possible ECF rehab. 3. Guarded prognosis. 4. Further recommendations to follow. MMODL / IJN: [id number] /
[2017-08-27] MEDS: SODIUM CHLORIDE 0.9% 1,000 ML IV SCH ×3 (01:06→23:22)
[2017-08-27] MEDS: PIPERACILLIN-TAZOBACTAM 3.375 GM in DEXTROSE/WATER 1 50ML.BAG IVPB SCH ×4 (01:06→23:22)
[2017-08-27] MEDS: methylPREDNISolone SOD SUCCI 125 MG/2 ML VIAL IV SCH ×5 (01:08→23:23)
[2017-08-27] MEDS: LORazepam 2 MG/ML INJ IV PRN (02:01)
[2017-08-27] MEDS: MORPHINE ORAL SOLN 10 MG/5 ML CUP PO PRN ×2 (05:36→21:52)
[2017-08-27 07:04] LABS: Glucose,Whole Blood 150 mg/dL (75-99)
[2017-08-27] MEDS: FORMOTEROL FUMARATE 20 MCG/2 ML NEBU INHALATION SCH ×2 (08:04→20:16)
[2017-08-27] MEDS: BUDESONIDE 1 MG/2 ML NEBU INHALATION SCH ×2 (08:04→20:16)
[2017-08-27] MEDS: IPRATROPIUM-ALBUTEROL 3 ML NEB INHALATION SCH ×4 (08:04→20:16)
[2017-08-27] MEDS: DOCUSATE 100 MG CAP PO SCH ×2 (08:09→21:53)
[2017-08-27] MEDS: HEPARIN SODIUM,PORCINE 5,000 UNIT/ML 1 ML VIAL SQ SCH ×2 (08:09→21:53)
[2017-08-27] MEDS: LACTULOSE 20 GM/30 ML CUP PO SCH ×3 (08:09→21:53)
[2017-08-27] MEDS: INSULIN ASPART 100 UNIT/ML 1 ML 10 ML VIAL SQ SCH ×4 (08:09→21:53)
[2017-08-27] MEDS: PANTOPRAZOLE 40 MG TABLET PO SCH (08:10)
[2017-08-27] MEDS: ASPIRIN 81 MG PO SCH (08:10)
[2017-08-27] MEDS: FLUCONAZOLE 100 MG TAB PO SCH (08:10)
[2017-08-27] MEDS: LEVOFLOXACIN 500 MG TAB PO SCH (08:10)
[2017-08-27] MEDS: buPROPion XL 150 MG TAB.ER.24H PO SCH (08:11)
[2017-08-27] MEDS: ALPRAZolam 0.5 MG TAB PO PRN ×2 (08:19→17:34)
[2017-08-27 11:24] LABS: Glucose,Whole Blood 148 mg/dL (75-99)
--- NOTE | 2017-08-27 12:52 | P.PN ---
Subjective Progress Note Date: 08/27/17 Principal diagnosis: Acute right upper lobe solid patient, possibly gram-negative pneumonia, possibly healthcare acquired Wicho is a 51-year-old white male patient of Dr. Reyes and Dr. Fuchs, has a past medical history positive for severe advanced oxygen-dependent chronic obstructive pulmonary disease, ongoing nicotine dependence, chronic pulmonary scarring in the upper lobes related to a history of bilateral spontaneous pneumothorax types to at a younger age requiring chest tube insertion and pleurodesis, anxiety, depression, chronic pain syndrome, macrocytic anemia, benign prostatic hypertrophy, and history of abdominal aortic aneurysm. Patient presented to the emergency department on 08/19/2017 complaints of worsening dyspnea, fatigue, decreased exercise tolerance, tachypnea and tachycardia. Patient wears oxygen at 2-3 L on the regular basis, however per EMS patient was oxygenating at about 81%. Did complain of significant chest pressure, denied any radiation, diaphoresis. Denied any nausea or vomiting. Patient had a cough, however no fever, unable to bring up any phlegm. Denied any lightheadedness, dizziness or syncopal episodes. Chest x-ray from 2017 showed stable biapical scarring, and stable diffuse pulmonary interstitial opacities, no acute process was seen. CTA chest was completed and showed no evidence for acute pulmonary embolism, advanced emphysematous changes with prominent bilateral fibrosis, evidence of right lung surgery with volume loss and old granuloma With this disease. Right upper lung acute consolidation was difficult to exclude, appear to be more prominent compared to previous CT chest studies. Patient did have a low-grade fever on presentation of 100.8F, otherwise remained afebrile while inpatient. She was in significant respiratory distress , with labored breathing, and use of accessory muscles and tachypnea, he was also tachycardic with a heart rate up to 133 bpm, tachypneic with respiratory rate up to 28 breaths per minute, but hemodynamically remains stable. Patient was recently hospitalized with a mild COPD exacerbation complicated by purulent tracheobronchitis, he was treated with oral antibiotics steroids and bronchodilators, improved and was discharged home in stable condition. Unfortunately patient continues to smoke, is spite multiple hospitalizations for COPD exacerbations and recurrent respiratory infections. She was discharged home on 08/11/2017 on oral course of Ceftin, prednisone taper, and maintenance inhalers and nebulized treatments. Blood and sputum cultures are pending at this time, patient was started on Levaquin, bronchodilator treatments , IV steroids, IV fluids and was admitted for further management. On 08/20/2017 patient seen in follow-up on medical surgical floor. Remains very dyspneic with any exertion, denies any phlegm production, does have frequent nonproductive congested cough. Lung sounds are positive for some scattered rales over left lower lobe, there is prolongation of expiratory phase. Afebrile overnight, vital signs are stable, currently on 4 L per nasal cannula with O2 sat at 98%. Hemodynamically stable, less tachycardic on today' s exam, with a heart rate up to 104 BPM. Overall improving, patient is being treated with empiric antibiotics in the form of Levaquin, IV steroids, and bronchodilator treatments. The plan is to proceed with bronchoscopy with BAL for lower respiratory tract sputum samples. The patient has been nothing by mouth since midnight, and a procedure scheduled for follow-up [address] Salinas On 08/21/2017 the patient is being seen in follow-up. The patient underwent a bronchoscopy and bronchial alveolar lavage of the right upper lobe yesterday. Following the procedure the patient had vigorous cough and. This caused significant amount of distress and oxygen desaturation. The patient had to be moved intensive care unit for further monitoring. Immediately after he arrived to the intensive care unit the patient felt better and his cough subsided and his heart rate and respiratory rate improved and he was actually taking that was somewhat between 3-4 L of oxygen by nasal cannula. His chest x-ray showed no evidence of any pneumothorax. A son that, the patient got transferred back to his medical floor. On today's evaluation, he is essentially the same. Still feeling slightly better compared to yesterday. No frequent coughing spells. No fever or chills. Remains in the same antibiotic coverage which included a combination of Levaquin and Zosyn and I'm awaiting the results of the bronchioloalveolar lavage was collected yesterday during bronchoscopy. No hemoptysis. No pleurisy. No chest pain. No other complaints otherwise. Noted the chest x-ray was done immediately after the bronchoscopy showed no evidence of any pneumothorax and there was a right upper lobe consolidation and a new right lower lobe infiltrate. No leukocytosis. His hemoglobin is at 7.0 and the patient has a significant drop compared to yesterday and this is to be followed up as the patient does not have any pulmonary bleeding or any gastrointestinal bleeding. There is an obvious 3 g drop in hemoglobin that needs to be washed 4 and hemoglobin is to be repeated. On 08/22/2017, Wicho is doing well and has no specific complaints. The bronchoscopy and the bronchioloalveolar lavage was completed and the patient does not have any fever or chills and I'm still awaiting for the final results of the bronchioloalveolar lavage. He is and accommodation of Zosyn and Levaquin. He is also on IV Solu-Medrol. His last bronchus spastic and wheezy. Hemoglobin was repeated and the patient's hemoglobin is currently above 8. No evidence of any acute bleeding. No respiratory distress for now. No fever or chills. No altered mentation. Is tolerating diet. He is having some nighttime insomnia. His white cell count is not elevated at 4.8. Hemoglobin is at 8.7. The patient is seen again today 08/23/2017 in follow-up in the oncology unit. He is currently resting quite comfortably in bed. He is breathing easier today as compared to yesterday. Maintaining good O2 saturations in the 90s on 3 L/m per nasal cannula now. Bronchial wash has been positive for Dary only thus far. White count 6.0. Hemoglobin 10.1. Creatinine 0.72. On 08/24/2017, I'm seeing this patient for a follow-up. He is afebrile hemodynamically stable. No worsening shortness of breath. All of the cultures from the bronchioloalveolar lavage of the right upper lobe came back negative and the patient had some yeast/Dary which is probably a colonizer. In any rate, he is still on antibiotics and steroids. He is looking well. He is COPD is end-stage and advanced. He has developed persistent chronic consolidation of the right upper lobe. He has been doing well otherwise. No altered mentation. No cough or sputum production. Hemoglobin has been stable. Tolerating his diet. No other significant events over the past 24 hours. On 08/25/2017 patient seen in follow-up on oncology floor. He is having persistent congested productive cough with production of large amount of yellow sputum. He maintains afebrile, vital signs are stable, he is 94% on room air, slightly tachycardic at times, especially during his coughing spells. Bronchial wash cultures were positive for Dary glabrata and Dary tropicalis, and the patient was initiated on Diflucan, he continues on Levaquin , IV steroids, and nebulized treatments. Complains of lower back pain, which he says is exacerbated by his persistent coughing. Today's lab work shows WBC is within normal limits at 9.2, hemoglobin is up to 11.9, he was 137, potassium is 5.0, chloride is 95, BUN is 21, creatinine is 0.70. Arrangements are in progress for transfer to subacute rehab, [facility] today. On 08/26/2017 patient was seen in follow-up. Yesterday patient had an acute episode of respiratory distress, his workup breathing was increased, he was tachypneic and tachycardic, congested, and wheezy. Solu-Medrol was increased back to 60 mg every 6 hours, he continues on Levaquin and Zosyn, and Diflucan for evidence of Dary species in his brother wash fungal cultures. Ativan and morphine were added yesterday for patient's aggressive anxiety, and breathlessness. CODE STATUS was discussed and the patient admitted decision for CODE STATUS of DO NOT RESUSCITATE, and he was recommended to proceed with comfort care. Yesterday the patient and discussed his poor prognosis with Dr. Fuchs, and his family, and wanted to proceed with hospice care. Today he is undecided, and would like to proceed with medical treatment, antibiotics, nebulized treatments. On today's exam his breathing is much easier, he is not tachypneic or tachycardic, lung sounds are positive for some scattered rhonchi, but overall improved from yesterday's exam, less wheezy. He is on 5 L per nasal cannula his O2 sat 93%. He is less anxious, he is afebrile. Remains stable from pulmonary standpoint. Discharge planning is in progress for transfer to the subacute rehab today, from pulmonary standpoint patient is stable for transfer there today On 08/27/2017 patient seen in follow-up on oncology floor. Continues to improve , there is still some residual congestion, but this is improving, patient has a productive cough with yellow sputum. Patient has been afebrile, vital signs are stable, currently on 5-6 L per nasal cannula with a pulse ox of 93%. Remains limited in terms of exercise capacity, has generalized edema, and becomes tachypneic and dyspneic with any exertion. His family is in the room, and were updated on patient's status. Discharge planning is in progress for discharge to [facility] today. Patient's washings were only positive for Dary species, and the patient continues on oral Diflucan. Patient has been treated with a combination of Levaquin and Zosyn, and responded well to treatments. Objective - Vital Signs Vital signs: Vital Signs Temp 98.6 F 08/27/17 07:10 Pulse 112 H 08/27/17 08:21 Resp 22 08/27/17 08:00 BP 118/72 08/27/17 07:10 Pulse Ox 93 L 08/27/17 07:10 Intake & Output 08/26/17 08/27/17 08/27/17 18:59 06:59 18:59 Intake Total 650 2740 Balance 650 2740 Weight 61.235 kg Intake: IV 650 1250 Piperacillin-Tazobactam 3 50 100 .375 gm In Dextrose/Water 1 50ml.bag @ 12.5 mls/hr IVPB Q8HR EBONI Rx#: [id number] Sodium Chloride 0.9% 1, 600 1150 000 ml @ 75 mls/hr IV . [id number] EBONI Rx#:[id number] Oral 1490 Other: Voiding Method Urinal Urinal Urinal # Voids 3 - Exam - Constitutional General appearance: mild distress, thin - EENT Eyes: PERRLA, poor dentition, normal appearance ENT: NA/AT Ears: bilateral: normal - Neck Neck: no lymphadenopathy Carotids: bilateral: upstroke normal Thyroid: bilateral: normal size - Respiratory Respiratory: bilateral: diminished, prolonged expiration, some scattered rhonchi over right lower lobe - Cardiovascular Heart sounds: normal: S1, S2 leg Peripheral Edema: absent: None foot Peripheral Edema: absent: None - Gastrointestinal General gastrointestinal: no organomegaly, soft, no tenderness - Integumentary Integumentary: normal turgor, pale - Neurologic Neurologic: CNII-XII intact - Musculoskeletal Musculoskeletal: gait normal, generalized weakness, strength equal bilaterally - Psychiatric Psychiatric: A&O x's 3, appropriate affect, intact judgment & insight - Labs CBC & Chem 7: 08/25/17 07:19 08/25/17 07:19 Labs: Abnormal Lab Results - Last 24 Hours (Table) 08/26/17 08/26/17 08/27/17 Range/Units 17:24 20:15 07:02 POC Glucose (mg/dL) 120 H 168 H 150 H (75-99) mg/dL 08/27/17 Range/Units 11:22 POC Glucose (mg/dL) 148 H (75-99) mg/dL Assessment and Plan Plan: Assessment: #1. Acute on chronic hypoxic respiratory failure secondary to a possible right upper lobe pneumonia, patient presented with low-grade fever, difficulty breathing, chest wall tenderness, chest congestion. And the CTA chest showed chronic biapical scarring, however acute right upper lobe consolidation was difficult to exclude, and appeared more prominent compared to the previous CT chest, the patient has been treated with broad-spectrum antibiotics and currently is on Levaquin and Zosyn. Bronchoscopy and bronchial lavage of the right upper lobe was done and the primary cultures yielded no new growth in terms of bacteria and there was yeast consistent with Dary. The patient was kept on the same treatment, and Diflucan was added. #2. Acute COPD exacerbation and purulent tracheobronchitis, improving slowly #3. Advanced COPD, oxygen dependent #4. Ongoing nicotine dependence #5. History of myelodysplastic syndrome #6. Anemia of chronic disease #7. Chronic biapical lung scarring, related to previous history of bilateral spontaneous pneumothoraxes, and pleurodesis at a younger age #8. Frequent hospitalizations for recurrent lung infections #9. History of abdominal aortic aneurysm #10. Anxiety, depression Plan: Patient remains stable from pulmonary standpoint, continues to improve, still has the congested productive cough with yellow sputum, but less wheezy, less bronchospastic. Remains dyspneic, patient has generalized edema, will need subacute rehab. Patient is stable for discharge to [facility] today on 7 day course of oral Levaquin and Diflucan. Zosyn can be discontinued. He will need a prednisone taper, and his maintenance inhalers and nebulized treatments. Follow-up with Dr. Fuchs in the office in 7-10 days. I performed a history & physical examination of the patient and discussed their management with my nurse practitioner, Corie Dasilva. I reviewed the nurse practitioner's note and agree with the documented findings and plan of care. Lung sounds are positive right lower lobe rhonchi. The findings and the impression was discussed with the patient. I attest to the documentation by the nurse practitioner. Time with Patient: Less than 30
[2017-08-27 17:18] LABS: Glucose,Whole Blood 138 mg/dL (75-99)
--- NOTE | 2017-08-27 20:45 | PN ---
PROGRESS NOTE DATE OF SERVICE: 08/27/2017 This 51-year-old gentleman who was admitted with COPD, acute exacerbation, had possibly Gram-negative right upper lobe pneumonia. The patient had bronchoscopy. No chest pain. No palpitations. ECF rehab is being planned at this time. On exam, alert and oriented x3. Pulse 102, blood pressure 93/55, respiration 24, temperature 97.8, pulse ox 100% on 5 L. HEENT: Conjunctivae normal. NECK: No jugular venous distention. CARDIOVASCULAR SYSTEM: S1, S2 muffled. RESPIRATORY SYSTEM: Breath sounds diminished at the bases. Bilateral scattered rhonchi and crackles. ABDOMEN: Soft, non-tender. No mass palpable. LEGS: No edema. No swelling. NERVOUS SYSTEM: Higher functions as mentioned earlier. Moves all 4 limbs. Mild diffuse weakness. ASSESSMENT: 1. Chronic obstructive pulmonary disease, acute exacerbation, with right upper lobe pneumonia, possibly Gram-negative, with acute hypoxic respiratory failure, status post bronchoscopy with Dary tropicalis and Dary glabrata from the sputum cultures. 2. Normocytic anemia of chronic disease. 3. Continued ongoing nicotine dependence. 4. Dementia. 5. History of myelodysplastic syndrome. 6. Gait dysfunction. 7. NO CODE, NO CPR, NO VENT. RECOMMENDATIONS AND DISCUSSION: I recommend to continue current medication, PT/OT evaluation. Otherwise, possible ECF rehab. Prognosis guarded because of the multiple complex medical issues. Further recommendations to follow. Continue the rest of the medications. MMODL / IJN: [id number] /
[2017-08-27] MEDS: ATORVASTATIN 20 MG TAB PO SCH (21:53)
[2017-08-27] MEDS: MONTELUKAST 10 MG TAB PO SCH (21:54)
[2017-08-27] MEDS: oxyCODONE-APAP 10-325MG 1 EACH TAB PO PRN (23:22)
[2017-08-28] MEDS: IPRATROPIUM-ALBUTEROL 3 ML NEB INHALATION PRN (01:38)
[2017-08-28] MEDS: MORPHINE ORAL SOLN 10 MG/5 ML CUP PO PRN (04:14)
[2017-08-28] MEDS: methylPREDNISolone SOD SUCCI 125 MG/2 ML VIAL IV SCH (05:33)
[2017-08-28 07:00] LABS: Glucose,Whole Blood 107 mg/dL (75-99)
[2017-08-28 07:30] LABS: Anisocytosis Moderate; HCT 29.5 % (39.0-53.0); Hypochromasia Moderate; MCH 32.1 pg (25.0-35.0); MCHC 31.5 g/dL (31.0-37.0); MCV 102.1 fL (80.0-100.0); Macrocytosis Moderate; Platelet Count 251 k/uL (150-450); Poikilocytosis Slight; RBC 2.89 m/uL (4.30-5.90); WBC 5.3 k/uL (3.8-10.6)
[2017-08-28 07:32] LABS: HGB 9.3 gm/dL (13.0-17.5)
[2017-08-28 07:34] LABS: Anion Gap 6 mmol/L; Blood Urea Nitrogen 23 mg/dL (9-20); Calcium 8.5 mg/dL (8.4-10.2); Carbon Dioxide 32 mmol/L (22-30); Chloride 98 mmol/L (98-107); Glucose 102 mg/dL (74-99); Sodium 136 mmol/L (137-145)
[2017-08-28 07:35] LABS: Potassium 4.8 mmol/L (3.5-5.1)
[2017-08-28] MEDS: INSULIN ASPART 100 UNIT/ML 1 ML 10 ML VIAL SQ SCH ×2 (07:53→11:54)
[2017-08-28] MEDS: FORMOTEROL FUMARATE 20 MCG/2 ML NEBU INHALATION SCH (08:01)
[2017-08-28] MEDS: BUDESONIDE 1 MG/2 ML NEBU INHALATION SCH (08:01)
[2017-08-28] MEDS: IPRATROPIUM-ALBUTEROL 3 ML NEB INHALATION SCH ×2 (08:01→11:30)
[2017-08-28 08:10] LABS: Band Neutrophils % 4 %; Lymphocytes # (M) 0.53 k/uL (1.0-4.8); Metamyelocytes # (M) 0.16 k/uL (0); Metamyelocytes % 3 %; Monocytes # (M) 0.27 k/uL (0-1.0); Myelocytes # (M) 0.27 k/uL (0); Myelocytes % 5 %; Neutrophils % (M) 74 %; Nucleated Red Blood Cells 0 /100 WBC (0-0); Promyelocytes # (M) 0.05 k/uL (0); Promyelocytes % 1 %; Total Cells Counted 200
[2017-08-28] MEDS: PIPERACILLIN-TAZOBACTAM 3.375 GM in DEXTROSE/WATER 1 50ML.BAG IVPB SCH (08:10)
[2017-08-28 08:11] LABS: Toxic Granulation Present
[2017-08-28] MEDS: PANTOPRAZOLE 40 MG TABLET PO SCH (08:11)
[2017-08-28] MEDS: FLUCONAZOLE 100 MG TAB PO SCH (08:11)
[2017-08-28] MEDS: ASPIRIN 81 MG PO SCH (08:11)
[2017-08-28] MEDS: buPROPion XL 150 MG TAB.ER.24H PO SCH (08:11)
[2017-08-28] MEDS: LEVOFLOXACIN 500 MG TAB PO SCH (08:11)
[2017-08-28] MEDS: DOCUSATE 100 MG CAP PO SCH (08:11)
[2017-08-28] MEDS: HEPARIN SODIUM,PORCINE 5,000 UNIT/ML 1 ML VIAL SQ SCH (08:12)
[2017-08-28] MEDS: LACTULOSE 20 GM/30 ML CUP PO SCH (08:12)
[2017-08-28 08:15] VITALS: BP 98/55; RESP 24; TEMP 97.5
[2017-08-28] MEDS: ALPRAZolam 0.5 MG TAB PO PRN (08:16)
[2017-08-28 11:29] LABS: Glucose,Whole Blood 126 mg/dL (75-99)
[2017-08-28 11:46] VITALS: PULSE 100
[2017-08-28] MEDS ORDERED: LORazepam 0.5 MG TAB PO PRN (11:50)
--- NOTE | 2017-08-28 11:53 | P.PN ---
Subjective Progress Note Date: 08/28/17 Principal diagnosis: Acute right upper lobe solid patient, possibly gram-negative pneumonia, possibly healthcare acquired Wicho is a 51-year-old white male patient of Dr. Reyes and Dr. Fuchs, has a past medical history positive for severe advanced oxygen-dependent chronic obstructive pulmonary disease, ongoing nicotine dependence, chronic pulmonary scarring in the upper lobes related to a history of bilateral spontaneous pneumothorax types to at a younger age requiring chest tube insertion and pleurodesis, anxiety, depression, chronic pain syndrome, macrocytic anemia, benign prostatic hypertrophy, and history of abdominal aortic aneurysm. Patient presented to the emergency department on 08/19/2017 complaints of worsening dyspnea, fatigue, decreased exercise tolerance, tachypnea and tachycardia. Patient wears oxygen at 2-3 L on the regular basis, however per EMS patient was oxygenating at about 81%. Did complain of significant chest pressure, denied any radiation, diaphoresis. Denied any nausea or vomiting. Patient had a cough, however no fever, unable to bring up any phlegm. Denied any lightheadedness, dizziness or syncopal episodes. Chest x-ray from 2017 showed stable biapical scarring, and stable diffuse pulmonary interstitial opacities, no acute process was seen. CTA chest was completed and showed no evidence for acute pulmonary embolism, advanced emphysematous changes with prominent bilateral fibrosis, evidence of right lung surgery with volume loss and old granuloma With this disease. Right upper lung acute consolidation was difficult to exclude, appear to be more prominent compared to previous CT chest studies. Patient did have a low-grade fever on presentation of 100.8F, otherwise remained afebrile while inpatient. She was in significant respiratory distress , with labored breathing, and use of accessory muscles and tachypnea, he was also tachycardic with a heart rate up to 133 bpm, tachypneic with respiratory rate up to 28 breaths per minute, but hemodynamically remains stable. Patient was recently hospitalized with a mild COPD exacerbation complicated by purulent tracheobronchitis, he was treated with oral antibiotics steroids and bronchodilators, improved and was discharged home in stable condition. Unfortunately patient continues to smoke, is spite multiple hospitalizations for COPD exacerbations and recurrent respiratory infections. She was discharged home on 08/11/2017 on oral course of Ceftin, prednisone taper, and maintenance inhalers and nebulized treatments. Blood and sputum cultures are pending at this time, patient was started on Levaquin, bronchodilator treatments , IV steroids, IV fluids and was admitted for further management. On 08/20/2017 patient seen in follow-up on medical surgical floor. Remains very dyspneic with any exertion, denies any phlegm production, does have frequent nonproductive congested cough. Lung sounds are positive for some scattered rales over left lower lobe, there is prolongation of expiratory phase. Afebrile overnight, vital signs are stable, currently on 4 L per nasal cannula with O2 sat at 98%. Hemodynamically stable, less tachycardic on today' s exam, with a heart rate up to 104 BPM. Overall improving, patient is being treated with empiric antibiotics in the form of Levaquin, IV steroids, and bronchodilator treatments. The plan is to proceed with bronchoscopy with BAL for lower respiratory tract sputum samples. The patient has been nothing by mouth since midnight, and a procedure scheduled for follow-up [address] Salinas On 08/21/2017 the patient is being seen in follow-up. The patient underwent a bronchoscopy and bronchial alveolar lavage of the right upper lobe yesterday. Following the procedure the patient had vigorous cough and. This caused significant amount of distress and oxygen desaturation. The patient had to be moved intensive care unit for further monitoring. Immediately after he arrived to the intensive care unit the patient felt better and his cough subsided and his heart rate and respiratory rate improved and he was actually taking that was somewhat between 3-4 L of oxygen by nasal cannula. His chest x-ray showed no evidence of any pneumothorax. A son that, the patient got transferred back to his medical floor. On today's evaluation, he is essentially the same. Still feeling slightly better compared to yesterday. No frequent coughing spells. No fever or chills. Remains in the same antibiotic coverage which included a combination of Levaquin and Zosyn and I'm awaiting the results of the bronchioloalveolar lavage was collected yesterday during bronchoscopy. No hemoptysis. No pleurisy. No chest pain. No other complaints otherwise. Noted the chest x-ray was done immediately after the bronchoscopy showed no evidence of any pneumothorax and there was a right upper lobe consolidation and a new right lower lobe infiltrate. No leukocytosis. His hemoglobin is at 7.0 and the patient has a significant drop compared to yesterday and this is to be followed up as the patient does not have any pulmonary bleeding or any gastrointestinal bleeding. There is an obvious 3 g drop in hemoglobin that needs to be washed 4 and hemoglobin is to be repeated. On 08/22/2017, Wicho is doing well and has no specific complaints. The bronchoscopy and the bronchioloalveolar lavage was completed and the patient does not have any fever or chills and I'm still awaiting for the final results of the bronchioloalveolar lavage. He is and accommodation of Zosyn and Levaquin. He is also on IV Solu-Medrol. His last bronchus spastic and wheezy. Hemoglobin was repeated and the patient's hemoglobin is currently above 8. No evidence of any acute bleeding. No respiratory distress for now. No fever or chills. No altered mentation. Is tolerating diet. He is having some nighttime insomnia. His white cell count is not elevated at 4.8. Hemoglobin is at 8.7. The patient is seen again today 08/23/2017 in follow-up in the oncology unit. He is currently resting quite comfortably in bed. He is breathing easier today as compared to yesterday. Maintaining good O2 saturations in the 90s on 3 L/m per nasal cannula now. Bronchial wash has been positive for Dary only thus far. White count 6.0. Hemoglobin 10.1. Creatinine 0.72. On 08/24/2017, I'm seeing this patient for a follow-up. He is afebrile hemodynamically stable. No worsening shortness of breath. All of the cultures from the bronchioloalveolar lavage of the right upper lobe came back negative and the patient had some yeast/Dary which is probably a colonizer. In any rate, he is still on antibiotics and steroids. He is looking well. He is COPD is end-stage and advanced. He has developed persistent chronic consolidation of the right upper lobe. He has been doing well otherwise. No altered mentation. No cough or sputum production. Hemoglobin has been stable. Tolerating his diet. No other significant events over the past 24 hours. On 08/25/2017 patient seen in follow-up on oncology floor. He is having persistent congested productive cough with production of large amount of yellow sputum. He maintains afebrile, vital signs are stable, he is 94% on room air, slightly tachycardic at times, especially during his coughing spells. Bronchial wash cultures were positive for Dary glabrata and Dary tropicalis, and the patient was initiated on Diflucan, he continues on Levaquin , IV steroids, and nebulized treatments. Complains of lower back pain, which he says is exacerbated by his persistent coughing. Today's lab work shows WBC is within normal limits at 9.2, hemoglobin is up to 11.9, he was 137, potassium is 5.0, chloride is 95, BUN is 21, creatinine is 0.70. Arrangements are in progress for transfer to subacute rehab, [facility] today. On 08/26/2017 patient was seen in follow-up. Yesterday patient had an acute episode of respiratory distress, his workup breathing was increased, he was tachypneic and tachycardic, congested, and wheezy. Solu-Medrol was increased back to 60 mg every 6 hours, he continues on Levaquin and Zosyn, and Diflucan for evidence of Dary species in his brother wash fungal cultures. Ativan and morphine were added yesterday for patient's aggressive anxiety, and breathlessness. CODE STATUS was discussed and the patient admitted decision for CODE STATUS of DO NOT RESUSCITATE, and he was recommended to proceed with comfort care. Yesterday the patient and discussed his poor prognosis with Dr. Fuchs, and his family, and wanted to proceed with hospice care. Today he is undecided, and would like to proceed with medical treatment, antibiotics, nebulized treatments. On today's exam his breathing is much easier, he is not tachypneic or tachycardic, lung sounds are positive for some scattered rhonchi, but overall improved from yesterday's exam, less wheezy. He is on 5 L per nasal cannula his O2 sat 93%. He is less anxious, he is afebrile. Remains stable from pulmonary standpoint. Discharge planning is in progress for transfer to the subacute rehab today, from pulmonary standpoint patient is stable for transfer there today On 08/27/2017 patient seen in follow-up on oncology floor. Continues to improve , there is still some residual congestion, but this is improving, patient has a productive cough with yellow sputum. Patient has been afebrile, vital signs are stable, currently on 5-6 L per nasal cannula with a pulse ox of 93%. Remains limited in terms of exercise capacity, has generalized edema, and becomes tachypneic and dyspneic with any exertion. His family is in the room, and were updated on patient's status. Discharge planning is in progress for discharge to [facility] today. Patient's washings were only positive for Dary species, and the patient continues on oral Diflucan. Patient has been treated with a combination of Levaquin and Zosyn, and responded well to treatments. On 08/28/2017 patient is seen in follow-up in oncology floor. Less congested, although still has productive cough with yellow sputum production, improving. No wheezes noted on today's exam. Patient has generalized weakness, still remains limited in terms of exercise capacity. No new growth on the bronchial wash cultures, they were previously positive for Dary species, and the patient is receiving Zosyn, Levaquin and Diflucan. Overall continues to improve , arrangements are in progress for placement to subacute rehab,[facility] Objective - Vital Signs Vital signs: Vital Signs Temp 97.5 F L 08/28/17 06:50 Pulse 100 08/28/17 11:45 Resp 24 08/28/17 06:50 BP 98/55 08/28/17 06:50 Pulse Ox 90 L 08/28/17 06:50 Intake & Output 08/27/17 08/28/17 08/28/17 18:59 06:59 18:59 Intake Total 2350 Output Total 1700 Balance 650 Weight 61.235 kg 61.235 kg Intake: IV 900 Piperacillin-Tazobactam 3 100 .375 gm In Dextrose/Water 1 50ml.bag @ 12.5 mls/hr IVPB Q8HR EBONI Rx#: [id number] Sodium Chloride 0.9% 1, 800 000 ml @ 75 mls/hr IV . [id number] EBONI Rx#:[id number] Oral 1450 Output: Urine 1700 Other: Voiding Method Urinal Urinal Urinal # Voids 3 1 - Exam - Constitutional General appearance: mild distress, thin - EENT Eyes: PERRLA, poor dentition, normal appearance ENT: NA/AT Ears: bilateral: normal - Neck Neck: no lymphadenopathy Carotids: bilateral: upstroke normal Thyroid: bilateral: normal size - Respiratory Respiratory: bilateral: diminished, prolonged expiration, some scattered rhonchi over right lower lobe - Cardiovascular Heart sounds: normal: S1, S2 leg Peripheral Edema: absent: None foot Peripheral Edema: absent: None - Gastrointestinal General gastrointestinal: no organomegaly, soft, no tenderness - Integumentary Integumentary: normal turgor, pale - Neurologic Neurologic: CNII-XII intact - Musculoskeletal Musculoskeletal: gait normal, generalized weakness, strength equal bilaterally - Psychiatric Psychiatric: A&O x's 3, appropriate affect, intact judgment & insight - Labs CBC & Chem 7: 08/28/17 07:04 08/28/17 07:04 Labs: Abnormal Lab Results - Last 24 Hours (Table) 08/27/17 08/28/17 08/28/17 Range/Units 17:16 06:57 07:04 RBC 2.89 L (4.30-5.90) m/uL Hgb 9.3 L D (13.0-17.5) gm/dL Hct 29.5 L (39.0-53.0) % MCV 102.1 H (80.0-100.0) fL RDW 20.0 H (11.5-15.5) % Lymphocytes # (Manual) 0.53 L (1.0-4.8) k/uL Metamyelocytes # (Man) 0.16 H (0) k/uL Myelocytes # (Manual) 0.27 H (0) k/uL Promyelocytes # (Man) 0.05 H (0) k/uL Sodium (137-145) mmol/L Carbon Dioxide (22-30) mmol/L BUN (9-20) mg/dL Glucose (74-99) mg/dL POC Glucose (mg/dL) 138 H 107 H (75-99) mg/dL 08/28/17 08/28/17 Range/Units 07:04 11:27 RBC (4.30-5.90) m/uL Hgb (13.0-17.5) gm/dL Hct (39.0-53.0) % MCV (80.0-100.0) fL RDW (11.5-15.5) % Lymphocytes # (Manual) (1.0-4.8) k/uL Metamyelocytes # (Man) (0) k/uL Myelocytes # (Manual) (0) k/uL Promyelocytes # (Man) (0) k/uL Sodium 136 L (137-145) mmol/L Carbon Dioxide 32 H (22-30) mmol/L BUN 23 H (9-20) mg/dL Glucose 102 H (74-99) mg/dL POC Glucose (mg/dL) 126 H (75-99) mg/dL Assessment and Plan Plan: Assessment: #1. Acute on chronic hypoxic respiratory failure secondary to a possible right upper lobe pneumonia, patient presented with low-grade fever, difficulty breathing, chest wall tenderness, chest congestion. And the CTA chest showed chronic biapical scarring, however acute right upper lobe consolidation was difficult to exclude, and appeared more prominent compared to the previous CT chest, the patient has been treated with broad-spectrum antibiotics and currently is on Levaquin and Zosyn. Bronchoscopy and bronchial lavage of the right upper lobe was done and the primary cultures yielded no new growth in terms of bacteria and there was yeast consistent with Dary. The patient was kept on the same treatment, and Diflucan was added. #2. Acute COPD exacerbation and purulent tracheobronchitis, improving slowly #3. Advanced COPD, oxygen dependent #4. Ongoing nicotine dependence #5. History of myelodysplastic syndrome #6. Anemia of chronic disease #7. Chronic biapical lung scarring, related to previous history of bilateral spontaneous pneumothoraxes, and pleurodesis at a younger age #8. Frequent hospitalizations for recurrent lung infections #9. History of abdominal aortic aneurysm #10. Anxiety, depression Plan: Stable from pulmonary standpoint, improving. Continue current treatment, IV steroids, bronchodilators, continue Zosyn, Levaquin and Diflucan, patient is awaiting completion of arrangements for transfer to the [facility] possibly today I performed a history & physical examination of the patient and discussed their management with my nurse practitioner, Corie Dasilva. I reviewed the nurse practitioner's note and agree with the documented findings and plan of care. Lung sounds are positive right lower lobe rhonchi. The findings and the impression was discussed with the patient. I attest to the documentation by the nurse practitioner. Time with Patient: Less than 30
[2017-08-28] MEDS: oxyCODONE-APAP 10-325MG 1 EACH TAB PO PRN (12:09)
--- NOTE | 2017-08-28 13:41 | P.DS ---
Providers Date of admission: 08/19/17 07:51 Attending physician: Blake Cherry Consults: 08/19/17 07:51 Consult Physician Routine Consulting Provider: Peace Latham Consult Reason/Comments: COPD Do you want consulting provider notified?: Yes Primary care physician: Yang Corrigan Hospital Course: Final diagnosis COPD acute exacerbation with a right upper lobe pneumonia possibly gram- negative with acute hypoxic respiratory failure status post bronchoscope be with the Dary tropicalis and Dary glabrata from the sputum culture. Normocytic anemia of chronic disease Continued ongoing nicotine dependence Dementia History of myelodysplastic syndrome Gait dysfunction Discharge disposition patient be discharged to ECF in a stable condition with guarded prognosis. Total time taken 30-35 minutes. Hospital course This 51-year-old gentleman with a past medical history of multiple medical problems was admitted with shortness of breath and COPD acute exacerbation as well as pneumonia. Patient was treated with antibiotics and bronchodilators and steroids. Because of lack of improvement the patient underwent bronchoscopy by Dr. Day. Dary was grown from the cultures. Patient was treated symptomatically. Patient improved significantly. Patient is complaining of significant weakness. Patient be discharged in a stable condition with guarded prognosis. On exam vitals stable. Cardio S1 and S2 normal. Respirator system few scattered rhonchi and crackles. Abdomen soft nontender. No system no focal deficit diffusely weak. This patient is currently no code no CPR no event. Patient Condition at Discharge: Stable Plan - Discharge Summary Discharge Rx Participant: No New Discharge Prescriptions: New Docusate [Colace] 100 mg PO BID #60 cap Fluconazole [Diflucan] 200 mg PO DAILY 7 Days #14 tab Lactulose [Cephulac] 30 gm PO TID #2700 ml Pantoprazole [Protonix] 40 mg PO AC-BRKFST #30 tablet. Amoxicillin/Potassium Clav [Augmentin 875-125 Tablet] 1 tab PO BID #14 tab ALPRAZolam [Xanax] 0.5 mg PO TID PRN #10 tab PRN Reason: Anxiety Ipratropium-Albuterol Nebulize [Duoneb 0.5 mg-3 mg/3 ml Soln] 3 ml INHALATION Q4H PRN ampul.neb PRN Reason: Shortness Of Breath Or Wheezing Ipratropium-Albuterol Nebulize [Duoneb 0.5 mg-3 mg/3 ml Soln] 3 ml INHALATION RT-QID ampul.neb predniSONE 10 mg PO DIRECTED #1 tab Promethaz-Cod 6.25-10 mg/5 ml [Phenergan with Codeine] 5 ml PO Q6H PRN #30 ml PRN Reason: Cold Symptoms LORazepam [Ativan] 0.5 mg PO Q6HR PRN #10 tab PRN Reason: Anxiety Continue Tiotropium 18 Mcg/Puff [Spiriva] 1 cap INHALATION RT-DAILY Fluticasone/Salmeterol [Advair 250-50 Diskus] 1 puff INHALATION RT-BID Montelukast [Singulair] 10 mg PO HS Aspirin EC [Ecotrin Low Dose] 81 mg PO DAILY #30 tablet. Atorvastatin [Lipitor] 20 mg PO HS #30 tab Epoetin Joe [Procrit] 20,000 unit SQ PADILLA buPROPion XL [Wellbutrin XL] 150 mg PO DAILY fentaNYL 25MCG/HR PATCH [Duragesic 25MCG/HR] 1 patch TRANSDERM Q72H #1 patch oxyCODONE HCL/ACETAMINOPHEN [Percocet 10-325 mg] 1 tab PO Q6HR PRN #12 tab PRN Reason: Pain predniSONE 20 mg PO DAILY #0 Discontinued Levofloxacin [Levaquin] 500 mg PO DAILY Discharge Medication List Fluticasone/Salmeterol [Advair 250-50 Diskus] 1 puff INHALATION RT-BID 10/09/16 [History] Tiotropium 18 Mcg/Puff [Spiriva] 1 cap INHALATION RT-DAILY 10/09/16 [History] Montelukast [Singulair] 10 mg PO HS 01/05/17 [History] Aspirin EC [Ecotrin Low Dose] 81 mg PO DAILY #30 tablet. 05/30/17 [Rx] Atorvastatin [Lipitor] 20 mg PO HS #30 tab 05/30/17 [Rx] Epoetin Joe [Procrit] 20,000 unit SQ PADILLA 08/10/17 [History] buPROPion XL [Wellbutrin XL] 150 mg PO DAILY 08/19/17 [History] Amoxicillin/Potassium Clav [Augmentin 875-125 Tablet] 1 tab PO BID #14 tab 08/25 [Rx] Docusate [Colace] 100 mg PO BID #60 cap 08/25/17 [Rx] Fluconazole [Diflucan] 200 mg PO DAILY 7 Days #14 tab 08/25/17 [Rx] Lactulose [Cephulac] 30 gm PO TID #2700 ml 08/25/17 [Rx] Pantoprazole [Protonix] 40 mg PO AC-BRKFST #30 tablet. 08/25/17 [Rx] ALPRAZolam [Xanax] 0.5 mg PO TID PRN #10 tab 08/26/17 [Rx] Ipratropium-Albuterol Nebulize [Duoneb 0.5 mg-3 mg/3 ml Soln] 3 ml INHALATION Q4H PRN ampul.neb 08/26/17 [Rx] Ipratropium-Albuterol Nebulize [Duoneb 0.5 mg-3 mg/3 ml Soln] 3 ml INHALATION RT -QID ampul.neb 08/26/17 [Rx] Promethaz-Cod 6.25-10 mg/5 ml [Phenergan with Codeine] 5 ml PO Q6H PRN #30 ml [Rx] fentaNYL 25MCG/HR PATCH [Duragesic 25MCG/HR] 1 patch TRANSDERM Q72H #1 patch [Rx] oxyCODONE HCL/ACETAMINOPHEN [Percocet 10-325 mg] 1 tab PO Q6HR PRN #12 tab 08/26 [Rx] predniSONE 10 mg PO DIRECTED #1 tab 08/26/17 [Rx] predniSONE 20 mg PO DAILY #0 08/26/17 [Rx] LORazepam [Ativan] 0.5 mg PO Q6HR PRN #10 tab 08/28/17 [Rx] Follow up Appointment(s)/Referral(s): Jasbir Mcmanus MD [REFERRING] - 1 Week Yang Corrigan DO [Primary Care Provider] - 1 Week (after dc from [facility]) Efraín Salinas MD [STAFF PHYSICIAN] - 2 Weeks Activity/Diet/Wound Care/Special Instructions: [facility] Diet: Cardiac Activity: limited till F/U cbc,bmp in 3 days
[2017-08-28] MEDS ORDERED: methylPREDNISolone SOD SUCCI 40 MG/ML 1 ML VIAL IV SCH (16:00)
--- NOTE | 2017-08-31 11:45 | CDI ---
Last Revision, April 2017 Documentation Clarification Form Date: 08/31/17 From: Marcelle Bautista Lauren Hall, Water Treatment Plant Operator between 8:30 am & 5 pm Glenn Admit Date: 08/19/2017 7:51:00 AM Patient Name: Wicho Burrows Visit Number: [id number] Discharge Date: 08/28/17 ATTENTION: The Clinical Documentation Specialists (CDI) and [facility] Coding Staff appreciate your assistance in clarifying documentation. Please respond to the clarification below the line at the bottom and electronically sign. The CDI & [facility] Coding staff will review the response and follow-up if needed. Please note: Queries are made part of the Legal Health Record. If you have any questions, please contact the author of this message via ITS. Dr. Blake Cherry Right upper lobe pneumonia possibly gram-negative was documented in your discharge summary. Also documented was Dary tropicalis and Dary glabrata from the sputum culture from bronchoscopy. He received IV antibiotics and was started on oral Diflucan following bronch culture results. In order to capture the severity of condition, please clarify if the condition signifies and you are treating for (more than choice is allowable): Gram Negative Pneumonia Candidial pneumonia Healthcare Acquired Pneumonia/Pneumonia, unspecified Other, please specify Unable to determine Please continue to document in your progress notes and discharge summary in order to capture severity of illness and risk of mortality. Include clinical findings that support your diagnosis. Candidial pneumonia possibly MTDD
== END 2017-08-28 15:04 | DRG 166 ==
LOC: EC 04:56 → 5MS5E 07:51 → 6ICU 08-20 17:39 → 5MS5E 08-20 19:43 → 5ONC 08-22 07:39
PROVIDERS: ADMIT Hospitalist; ATTEND Hospitalist
PROC: 0B9C8ZX Drainage of Right Upper Lung Lobe, Via Natural or Artificial Opening Endoscopic, Diagnostic (ICD-10-PCS; 2017-08-20)
PROC: 0B9C8ZZ Drainage of Right Upper Lung Lobe, Via Natural or Artificial Opening Endoscopic (ICD-10-PCS; principal; 2017-08-20 08:30)
PROC: 30233N1 Transfusion of Nonautologous Red Blood Cells into Peripheral Vein, Percutaneous Approach (ICD-10-PCS; 2017-08-21)
PROC: 5A09357 Assistance with Respiratory Ventilation, Less than 24 Consecutive Hours, Continuous Positive Airway Pressure (ICD-10-PCS; 2017-08-25)
DX: J96.21 Acute and chronic respiratory failure with hypoxia (principal); B37.1 Pulmonary candidiasis; Z99.81 Dependence on supplemental oxygen; J43.9 Emphysema, unspecified; J98.09 Other diseases of bronchus, not elsewhere classified; D46.9 Myelodysplastic syndrome, unspecified; F03.90 Unspecified dementia, unspecified severity, without behavioral disturbance, psychotic disturbance, mood disturbance, and anxiety; Z51.5 Encounter for palliative care; Z66 Do not resuscitate; K76.9 Liver disease, unspecified; D63.8 Anemia in other chronic diseases classified elsewhere; G89.4 Chronic pain syndrome; J20.9 Acute bronchitis, unspecified; M19.91 Primary osteoarthritis, unspecified site; F17.200 Nicotine dependence, unspecified, uncomplicated; Z71.6 Tobacco abuse counseling; N40.0 Benign prostatic hyperplasia without lower urinary tract symptoms; R26.9 Unspecified abnormalities of gait and mobility; M54.5 Low back pain; G47.00 Insomnia, unspecified; I71.4 Abdominal aortic aneurysm, without rupture; F32.9 Major depressive disorder, single episode, unspecified; F41.9 Anxiety disorder, unspecified; Z79.82 Long term (current) use of aspirin; Z79.891 Long term (current) use of opiate analgesic; Z79.899 Other long term (current) drug therapy; Z79.51 Long term (current) use of inhaled steroids; Z85.830 Personal history of malignant neoplasm of bone; Z86.73 Personal history of transient ischemic attack (TIA), and cerebral infarction without residual deficits; Z87.01 Personal history of pneumonia (recurrent); Z82.49 Family history of ischemic heart disease and other diseases of the circulatory system; Z80.1 Family history of malignant neoplasm of trachea, bronchus and lung; Z80.7 Family history of other malignant neoplasms of lymphoid, hematopoietic and related tissues; D53.9 Nutritional anemia, unspecified
CPT/HCPCS: 31624; 36415; 71045; 71046; 71275; 80048; 80053; 82550; 82553; 83036; 83605; 83735; 83880; 84484; 85025; 85379; 85610; 85730; 86850; 86900; 86901; 86920; 87040; 87070; 87102; 87116; 87205; 87206; 87252; 87496; 87498; 87502; 87529; 87634; 87798; 88108; 88305; 89050; 93005; 94640; 94660; 94760; 96365; 96366; 96367; 96375; 96376; 99285

== ENCOUNTER 2017-08-28 22:07 | Inpatient (IN) | payer MEDICARE ==
[2017-08-28] MEDS ORDERED: ALBUTEROL NEBULIZED 2.5 MG/3 ML INHALATION STA (22:09)
[2017-08-28] MEDS ORDERED: methylPREDNISolone SOD SUCCI 125 MG/2 ML VIAL IV STA (22:09)
[2017-08-28] MEDS ORDERED: IPRATROPIUM 0.5 MG/2.5 ML NEBU INHALATION STA (22:09)
[2017-08-28 22:18] VITALS: TEMP 99.1
--- NOTE | 2017-08-28 22:26 | ED ---
General Adult HPI - General Chief complaint: Shortness of Breath Stated complaint: SOB Time Seen by Provider: 08/28/17 22:09 Source: patient, EMS, RN notes reviewed, old records reviewed Mode of arrival: EMS - History of Present Illness Initial comments: This is a 51-year-old male the ER presenting in severe respiratory distress, is low pulse ox despite breathing treatment current. Patient unable to give history secondary to stress, history obtained from EMS and patient's prior charting - Related Data Home Medications Medication Instructions Recorded Confirmed Fluticasone/Salmeterol [Advair 1 puff INHALATION RT-BID 10/09/16 08/28/17 250-50 Diskus] Tiotropium 18 Mcg/Puff [Spiriva] 1 cap INHALATION RT-DAILY 10/09/16 08/28/17 Montelukast [Singulair] 10 mg PO HS 01/05/17 08/28/17 Epoetin Joe [Procrit] 20,000 unit SQ PADILLA 08/10/17 08/28/17 buPROPion XL [Wellbutrin XL] 150 mg PO DAILY 08/19/17 08/28/17 Previous Rx's Medication Instructions Recorded Aspirin EC [Ecotrin Low Dose] 81 mg PO DAILY #30 tablet. 05/30/17 Atorvastatin [Lipitor] 20 mg PO HS #30 tab 05/30/17 Amoxicillin/Potassium Clav 1 tab PO BID #14 tab 08/25/17 [Augmentin 875-125 Tablet] Docusate [Colace] 100 mg PO BID #60 cap 08/25/17 Fluconazole [Diflucan] 200 mg PO DAILY 7 Days #14 tab 08/25/17 Lactulose [Cephulac] 30 gm PO TID #2700 ml 08/25/17 Pantoprazole [Protonix] 40 mg PO AC-BRKFST #30 tablet. 08/25/17 ALPRAZolam [Xanax] 0.5 mg PO TID PRN #10 tab 08/26/17 Ipratropium-Albuterol Nebulize 3 ml INHALATION Q4H PRN ampul.neb 08/26/17 [Duoneb 0.5 mg-3 mg/3 ml Soln] Ipratropium-Albuterol Nebulize 3 ml INHALATION RT-QID ampul.neb 08/26/17 [Duoneb 0.5 mg-3 mg/3 ml Soln] Promethaz-Cod 6.25-10 mg/5 ml 5 ml PO Q6H PRN #30 ml 08/26/17 [Phenergan with Codeine] fentaNYL 25MCG/HR PATCH [Duragesic 1 patch TRANSDERM Q72H #1 patch 08/26/17 25MCG/HR] oxyCODONE HCL/ACETAMINOPHEN 1 tab PO Q6HR PRN #12 tab 08/26/17 [Percocet 10-325 mg] predniSONE 10 mg PO DIRECTED #1 tab 08/26/17 predniSONE 20 mg PO DAILY #0 08/26/17 LORazepam [Ativan] 0.5 mg PO Q6HR PRN #10 tab 08/28/17 Allergies Allergy/AdvReac Type Severity Reaction Status Date / Time No Known Allergies Allergy Verified 08/19/17 07:45 Review of Systems ROS Statement: Those systems with pertinent positive or pertinent negative responses have been documented in the HPI. ROS Other: All systems not noted in ROS Statement are negative. Past Medical History Past Medical History: Cancer, COPD, CVA/TIA, Liver Disease, Memory Impairment, Pneumonia, Prostate Disorder Additional Past Medical History / Comment(s): Myelodysplastic syndrome pt states diagnosed January [address] French, macrocytic anemia, weekly epogen injections, chronic hypoxic respiratory failure, home O2 at 2L/NC ATC, possible TIA 05/2017, chronic pain, vertigo at times, abdominal aortic aneurysm, bilateral spontaneous pneumothorax (left once and right twice) with chest tubes and pleurodesis, degenerative arthritis, BPH. History of Any Multi-Drug Resistant Organisms: None Reported Additional Past Surgical History / Comment(s): Bilateral pleurodesis, BMA Past Anesthesia/Blood Transfusion Reactions: No Reported Reaction Additional Past Anesthesia/Blood Transfusion Reaction / Comment(s): Pt moved here from [place] over a year ago. Was living alone in his own apartment but having difficulty caring for himself. Currently living with his cousin. He has home care thru [facility]. Has home 02 /concentrator. no pets. no past service. 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 Past Psychological History: Anxiety, Depression Smoking Status: Former smoker - Past Family History Father History Unknown: Yes Mother Family Medical History: Cancer, Coronary Artery Disease (CAD) Additional Family Medical History / Comment(s): lung cancer, lymphoma. General Exam - General Exam Comments Initial Comments: Significant subcu emphysema upper chest and neck General appearance: alert, anxious, in distress, cachectic Head exam: Present: atraumatic, normocephalic, normal inspection Eye exam: Present: normal appearance, PERRL, EOMI. Absent: scleral icterus, conjunctival injection, periorbital swelling ENT exam: Present: normal exam, mucous membranes moist Neck exam: Present: normal inspection. Absent: tenderness, meningismus, lymphadenopathy Respiratory exam: Present: respiratory distress, wheezes, accessory muscle use, decreased breath sounds, prolonged expiratory. Absent: normal lung sounds bilaterally, rales, rhonchi, stridor Cardiovascular Exam: Present: regular rate, normal rhythm, normal heart sounds. Absent: systolic murmur, diastolic murmur, rubs, gallop, clicks GI/Abdominal exam: Present: soft, normal bowel sounds. Absent: distended, tenderness, guarding, rebound, rigid Extremities exam: Present: normal inspection, full ROM, normal capillary refill. Absent: tenderness, pedal edema, joint swelling, calf tenderness Back exam: Present: normal inspection Neurological exam: Present: alert, oriented X3, CN II-XII intact Psychiatric exam: Present: normal affect, normal mood Skin exam: Present: warm, dry, intact, normal color. Absent: rash Course Vital Signs 08/28/17 08/28/17 08/28/17 22:13 22:27 23:08 Temperature 99.1 F Pulse Rate 125 H 118 H Respiratory 30 H 25 H 22 Rate Blood Pressure 138/72 O2 Sat by Pulse 95 88 L Oximetry 08/28/17 08/28/17 23:15 23:31 Temperature Pulse Rate 122 H 124 H Respiratory 26 H Rate Blood Pressure 113/72 O2 Sat by Pulse 94 L Oximetry - Reevaluation(s) Reevaluation #1: Patient's breathing and low oxygen improved on BiPAP Spoke with patient at length regarding subcu emphysema states he did have recent bronchoscopy, denies significant pain Medical record and prior records reviewed. Patient is DO NOT RESUSCITATE EKG Findings - EKG Comments: EKG Findings:: EKG shows sinus tachycardia rate 125, AL 134, QRS 94, QTC 418 Medical Decision Making - Medical Decision Making 51-year-old male the ER in severe respiratory distress, severe hypoxia, patient placed on BiPAP upon arrival to ER he did show significant improvement here in the emergency room. Patient be admitted for pulmonary evaluation, patient does have significant subcu emphysema - Lab Data Result diagrams: 08/28/17 20:35 08/28/17 20:35 Lab Results 08/28/17 08/28/17 08/28/17 Range/Units 20:35 20:35 20:35 WBC 8.6 (3.8-10.6) k/uL RBC 3.60 L (4.30-5.90) m/uL Hgb 11.7 L (13.0-17.5) gm/dL Hct 36.0 L (39.0-53.0) % MCV 100.0 (80.0-100.0) fL MCH 32.6 (25.0-35.0) pg MCHC 32.6 (31.0-37.0) g/dL RDW 20.4 H (11.5-15.5) % Plt Count 287 (150-450) k/uL Neutrophils % (Manual) 83 % Band Neutrophils % 5 % Lymphocytes % (Manual) 6 % Monocytes % (Manual) 3 % Metamyelocytes % 3 % Neutrophils # (Manual) 7.50 (1.3-7.7) k/uL Lymphocytes # (Manual) 0.52 L (1.0-4.8) k/uL Monocytes # (Manual) 0.26 (0-1.0) k/uL Metamyelocytes # (Man) 0.26 H (0) k/uL Nucleated RBCs 0 (0-0) /100 WBC Manual Slide Review Performed Poikilocytosis Slight Anisocytosis Moderate Macrocytosis Moderate PT (9.0-12.0) sec INR (<1.2) APTT (22.0-30.0) sec Sodium 136 L (137-145) mmol/L Potassium 3.9 (3.5-5.1) mmol/L Chloride 93 L (98-107) mmol/L Carbon Dioxide 32 H (22-30) mmol/L Anion Gap 11 mmol/L BUN 27 H (9-20) mg/dL Creatinine 0.70 (0.66-1.25) mg/dL Est GFR (CKD-EPI)AfAm >90 (>60 ml/min/1.73 sqM) Est GFR (CKD-EPI)NonAf >90 (>60 ml/min/1.73 sqM) Glucose 95 (74-99) mg/dL Calcium 8.7 (8.4-10.2) mg/dL Total Bilirubin 0.7 (0.2-1.3) mg/dL AST 32 (17-59) U/L ALT 52 (21-72) U/L Alkaline Phosphatase 101 (38-126) U/L Total Creatine Kinase 81 (55-170) U/L CK-MB (CK-2) 0.9 (0.0-2.4) ng/mL CK-MB (CK-2) Rel Index 1.1 Troponin I 0.071 H* (0.000-0.034) ng/mL NT-Pro-B Natriuret Pep pg/mL Total Protein 6.5 (6.3-8.2) g/dL Albumin 3.4 L (3.5-5.0) g/dL 08/28/17 08/28/17 Range/Units 20:35 20:35 WBC (3.8-10.6) k/uL RBC (4.30-5.90) m/uL Hgb (13.0-17.5) gm/dL Hct (39.0-53.0) % MCV (80.0-100.0) fL MCH (25.0-35.0) pg MCHC (31.0-37.0) g/dL RDW (11.5-15.5) % Plt Count (150-450) k/uL Neutrophils % (Manual) % Band Neutrophils % % Lymphocytes % (Manual) % Monocytes % (Manual) % Metamyelocytes % % Neutrophils # (Manual) (1.3-7.7) k/uL Lymphocytes # (Manual) (1.0-4.8) k/uL Monocytes # (Manual) (0-1.0) k/uL Metamyelocytes # (Man) (0) k/uL Nucleated RBCs (0-0) /100 WBC Manual Slide Review Poikilocytosis Anisocytosis Macrocytosis PT 10.1 (9.0-12.0) sec INR 1.0 (<1.2) APTT 21.9 L (22.0-30.0) sec Sodium (137-145) mmol/L Potassium (3.5-5.1) mmol/L Chloride (98-107) mmol/L Carbon Dioxide (22-30) mmol/L Anion Gap mmol/L BUN (9-20) mg/dL Creatinine (0.66-1.25) mg/dL Est GFR (CKD-EPI)AfAm (>60 ml/min/1.73 sqM) Est GFR (CKD-EPI)NonAf (>60 ml/min/1.73 sqM) Glucose (74-99) mg/dL Calcium (8.4-10.2) mg/dL Total Bilirubin (0.2-1.3) mg/dL AST (17-59) U/L ALT (21-72) U/L Alkaline Phosphatase (38-126) U/L Total Creatine Kinase (55-170) U/L CK-MB (CK-2) (0.0-2.4) ng/mL CK-MB (CK-2) Rel Index Troponin I (0.000-0.034) ng/mL NT-Pro-B Natriuret Pep 214 pg/mL Total Protein (6.3-8.2) g/dL Albumin (3.5-5.0) g/dL - Radiology Data Radiology results: report reviewed (Chest x-ray is positive or subcutaneous emphysema), image reviewed Critical Care Time Critical Care Time: Yes Total Critical Care Time: 31 Disposition Clinical Impression: COPD (chronic obstructive pulmonary disease), Acute exacerbation of chronic obstructive airways disease, Dyspnea, Subcutaneous emphysema Disposition: ADMITTED IP TO THIS HOSP Condition: Critical Is patient prescribed a controlled substance at d/c from ED?: No
--- NOTE | 2017-08-28 22:33 | XR ---
EXAMINATION TYPE: XR chest 1V portable DATE OF EXAM: 08/28/2017 COMPARISON: 08/22/2017 HISTORY: Respiratory distress TECHNIQUE: Single frontal view of the chest is obtained. FINDINGS: There is extensive subcutaneous air over the upper chest bilaterally. Heart size is normal . There is no heart failure. There is pleural thickening and infiltrate in the right upper lobe. Ther e is reticular mild infiltrate at the lung bases. There is no heart failure. There is no evidence of a pneumothorax. IMPRESSION: There is new extensive subcutaneous emphysema compared to old exam. Pulmonary fibrotic c hanges. Chronic bilateral pulmonary infiltrates. I see no pneumothorax or pneumomediastinum. This exa m was discussed with ER physician at 10:30 PM.
[2017-08-28] MEDS ORDERED: LORazepam 2 MG/ML INJ IV STA (22:46)
[2017-08-28] MEDS ORDERED: MORPHINE SULFATE 4 MG/0.8 ML SYRINGE (INJ) IVP STA (22:46)
[2017-08-28] MEDS ORDERED: MORPHINE SULFATE 4 MG/0.8 ML SYRINGE (INJ) IVP PRN (22:47)
[2017-08-28] MEDS ORDERED: SODIUM CHLORIDE 0.9% 1,000 ML IV SCH (23:00)
[2017-08-28 23:06] LABS: Anisocytosis Moderate; HGB 11.7 gm/dL (13.0-17.5); MCH 32.6 pg (25.0-35.0); MCHC 32.6 g/dL (31.0-37.0); Macrocytosis Moderate; Mean Platelet Volume 7.1; Platelet Count 287 k/uL (150-450); Poikilocytosis Slight; RDW 20.4 % (11.5-15.5); WBC 8.6 k/uL (3.8-10.6)
[2017-08-28 23:07] LABS: ALT 52 U/L (21-72); AST 32 U/L (17-59); Albumin 3.4 g/dL (3.5-5.0); Alkaline Phosphatase 101 U/L (38-126); Anion Gap 11 mmol/L; Blood Urea Nitrogen 27 mg/dL (9-20); Calcium 8.7 mg/dL (8.4-10.2); Carbon Dioxide 32 mmol/L (22-30); Chloride 93 mmol/L (98-107); Glucose 95 mg/dL (74-99); Potassium 3.9 mmol/L (3.5-5.1); Sodium 136 mmol/L (137-145); Total Bilirubin 0.7 mg/dL (0.2-1.3); Total Protein 6.5 g/dL (6.3-8.2)
[2017-08-28 23:09] LABS: Partial Thromboplastin Time 21.9 sec (22.0-30.0); Prothrombin Time 10.1 sec (9.0-12.0)
[2017-08-28 23:17] VITALS: BP 113/72; RESP 26
[2017-08-28 23:21] LABS: Creatine Kinase MB 0.9 ng/mL (0.0-2.4)
[2017-08-28 23:28] LABS: Troponin I 0.071 ng/mL (0.000-0.034)
[2017-08-28 23:29] LABS: Band Neutrophils % 5 %; Lymphocytes # (M) 0.52 k/uL (1.0-4.8); Metamyelocytes # (M) 0.26 k/uL (0); Metamyelocytes % 3 %; Monocytes # (M) 0.26 k/uL (0-1.0); Neutrophils % (M) 83 %; Nucleated Red Blood Cells 0 /100 WBC (0-0); Total Cells Counted 100
[2017-08-28 23:32] VITALS: PULSE 124
[2017-08-28 23:46] LABS: Glucose,Whole Blood 109 mg/dL (75-99)
[2017-08-29] MEDS ORDERED: MORPHINE SULFATE 4 MG/0.8 ML SYRINGE (INJ) IVP ONE (00:59)
[2017-08-29] MEDS ORDERED: SCOPOLAMINE 1.5MG/72HR PATCH TRANSDERM PRN (00:59)
[2017-08-29] MEDS ORDERED: MORPHINE SULFATE 4 MG/0.8 ML SYRINGE (INJ) IV PRN (00:59)
[2017-08-29] MEDS ORDERED: LORazepam 2 MG/ML INJ IV PRN (00:59)
[2017-08-29] MEDS ORDERED: ATROPINE OPHTH SOLN 1% 5ML BTL SUBLINGUAL PRN (00:59)
[2017-08-29] MEDS: MORPHINE SULFATE (100 MG/2 ML) 100 MG in SODIUM CHLORIDE 0.9% 100 ML IV SCH ×2 (01:44→10:17)
[2017-08-29] MEDS: methylPREDNISolone SOD SUCCI 125 MG/2 ML VIAL IV SCH ×3 (01:46→11:15)
[2017-08-29 02:57] VITALS: BMI 18.0
[2017-08-29] MEDS ORDERED: IPRATROPIUM-ALBUTEROL 3 ML NEB INHALATION SCH (08:00)
--- NOTE | 2017-08-29 10:51 | P.CNPUL ---
History of Present Illness Consult date: 08/29/17 Requesting physician: Brian Mcwilliams Reason for consult: dyspnea, other Chief complaint: Shortness of breath, subcutaneous emphysema, hypoxemic respiratory failure History of present illness: Wicho is a 51-year-old white male patient of Dr. Corrigan and Dr. Latham for his history of severe advanced oxygen-dependent chronic obstructive pulmonary disease, was discharged to the [facility] yesterday on 08/29/2017 after being hospitalized for 9 days for acute on chronic hypoxic respiratory failure secondary to right upper lobe pneumonia, COPD exacerbation and purulent tracheobronchitis. Patient has an extensive medical history including COPD, extensive scarring in bilateral apices of the lungs due to history of previous pneumothoraces, requiring chest tube placements and pleurodesis, recurrent lung infections, nicotine dependence, myelodysplastic syndrome, abdominal aortic aneurysm, anxiety and depression. During that hospital stay patient underwent bronchoscopy with BAL, large amount of retained pulmonary secretions were removed, and cytology was negative for malignancy. The bronchial wash cultures were positive for Dary glabrata and Dary tropicalis, and the patient was treated with a combination of Levaquin, Zosyn and Diflucan, IV steroids and bronchodilators, improved, and was discharged to the subacute rehab in stable condition. Patient was there for approximately 2 hours, and suddenly developed swelling on the right side of his neck, neck pain, difficulty breathing, became very hypoxemic and was transferred back to the emergency room for evaluation. Chest x-ray completed in the ED showed new extensive subcutaneous emphysema, and chronic pulmonary fibrotic changes and chronic bilateral pulmonary infiltrates. There was no pneumothorax or pneumomediastinum. Patient was in significant amount of respiratory distress, tachypneic, tachycardic, hypoxemic with a pulse ox of 88% on nasal cannula. He denies any increased coughing, denies any chest pain, denies any pleuritic pain. Moderate amount of subcutaneous emphysema noted in the emergency room over right side of patient's neck, right upper chest, anteriorly and posteriorly. Patient required BiPAP support. The ER physician spoke to Dr. Fuchs and patient had previously been recommended comfort care measures and hospice enrollment in view of his poor functional capacity, recurrent hospitalizations for recurrent COPD exacerbations , lung infections. At this time the patient and the family have decided to proceed with comfort care protocol, and proceed with hospice enrollment in view of patient's deteriorating clinical status, poor quality of life, worsening breathlessness, poor prognosis in view of multiple comorbidities and or lung function. The comfort care was recommended for preservation of patient's comfort, peace and dignity. 's morning patient seen in oncology floor, he is currently on morphine drip at 10 mg per hour, he is awake, and responds appropriately, he states he is fairly comfortable. He is coughing, and bringing up some yellow sputum, and his subcutaneous emphysema on the right side of his neck and right chest and right upper back have not extended. Review of Systems All systems: negative Constitutional: Denies chills, Denies fever Eyes: denies blurred vision, denies pain Ears, nose, mouth and throat: Denies headache, Denies sore throat Cardiovascular: Denies chest pain, Denies shortness of breath Respiratory: Reports congestion, Reports cough with sputum, Reports dyspnea, Reports home oxygen, Reports respiratory infections, Denies cough Gastrointestinal: Denies abdominal pain, Denies diarrhea, Denies nausea, Denies vomiting Musculoskeletal: Reports gait dysfunction, Reports limitation of motion, Denies myalgias Integumentary: Denies pruritus, Denies rash Neurological: Denies numbness, Denies weakness Psychiatric: Denies anxiety, Denies depression Endocrine: Denies fatigue, Denies weight change Past Medical History Past Medical History: Cancer, COPD, CVA/TIA, Liver Disease, Memory Impairment, Pneumonia, Prostate Disorder Additional Past Medical History / Comment(s): Myelodysplastic syndrome pt states diagnosed January [address] French, macrocytic anemia, weekly epogen injections, chronic hypoxic respiratory failure, home O2 at 2L/NC ATC, possible TIA 05/2017, chronic pain, vertigo at times, abdominal aortic aneurysm, bilateral spontaneous pneumothorax (left once and right twice) with chest tubes and pleurodesis, degenerative arthritis, BPH. History of Any Multi-Drug Resistant Organisms: None Reported Additional Past Surgical History / Comment(s): Bilateral pleurodesis, BMA Past Anesthesia/Blood Transfusion Reactions: No Reported Reaction Additional Past Anesthesia/Blood Transfusion Reaction / Comment(s): Pt moved here from [place] over a year ago. Was living alone in his own apartment but having difficulty caring for himself. Currently living with his cousin. He has home care thru [facility]. Has home 02 /concentrator. no pets. no past service. 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 Past Psychological History: Anxiety, Depression Smoking Status: Former smoker - Past Family History Father History Unknown: Yes Mother Family Medical History: Cancer, Coronary Artery Disease (CAD) Additional Family Medical History / Comment(s): lung cancer, lymphoma. Medications and Allergies Home Medications Medication Instructions Recorded Confirmed Type Fluticasone/Salmeterol [Advair 1 puff INHALATION RT-BID 10/09/16 08/28/17 History 250-50 Diskus] Tiotropium 18 Mcg/Puff [Spiriva] 1 cap INHALATION RT-DAILY 10/09/16 08/28/17 History Montelukast [Singulair] 10 mg PO HS 01/05/17 08/28/17 History Aspirin EC [Ecotrin Low Dose] 81 mg PO DAILY #30 tablet. 05/30/17 08/28/17 Rx Atorvastatin [Lipitor] 20 mg PO HS #30 tab 05/30/17 08/28/17 Rx Epoetin Joe [Procrit] 20,000 unit SQ PADILLA 08/10/17 08/28/17 History buPROPion XL [Wellbutrin XL] 150 mg PO DAILY 08/19/17 08/28/17 History Amoxicillin/Potassium Clav 1 tab PO BID #14 tab 08/25/17 08/28/17 Rx [Augmentin 875-125 Tablet] Docusate [Colace] 100 mg PO BID #60 cap 08/25/17 08/28/17 Rx Fluconazole [Diflucan] 200 mg PO DAILY 7 Days #14 tab 08/25/17 08/28/17 Rx Lactulose [Cephulac] 30 gm PO TID #2700 ml 08/25/17 08/28/17 Rx Pantoprazole [Protonix] 40 mg PO AC-BRKFST #30 tablet. 08/25/17 08/28/17 Rx ALPRAZolam [Xanax] 0.5 mg PO TID PRN #10 tab 08/26/17 08/28/17 Rx Ipratropium-Albuterol Nebulize 3 ml INHALATION Q4H PRN ampul.neb 08/26/1708/28 Rx [Duoneb 0.5 mg-3 mg/3 ml Soln] Ipratropium-Albuterol Nebulize 3 ml INHALATION RT-QID ampul.neb 08/26/17 Rx [Duoneb 0.5 mg-3 mg/3 ml Soln] Promethaz-Cod 6.25-10 mg/5 ml 5 ml PO Q6H PRN #30 ml 08/26/17 08/28/17 Rx [Phenergan with Codeine] fentaNYL 25MCG/HR PATCH [Duragesic 1 patch TRANSDERM Q72H #1 patch 08/26/17 Rx 25MCG/HR] oxyCODONE HCL/ACETAMINOPHEN 1 tab PO Q6HR PRN #12 tab 08/26/17 08/28/17 Rx [Percocet 10-325 mg] predniSONE 10 mg PO DIRECTED #1 tab 08/26/17 08/28/17 Rx predniSONE 20 mg PO DAILY #0 08/26/17 08/28/17 Rx LORazepam [Ativan] 0.5 mg PO Q6HR PRN #10 tab 08/28/17 08/28/17 Rx Allergies Allergy/AdvReac Type Severity Reaction Status Date / Time No Known Allergies Allergy Verified 08/19/17 07:45 Physical Exam Vitals: Vital Signs Temp Pulse Resp BP Pulse Ox 08/28/17 23:31 124 H 08/28/17 23:15 122 H 26 H 113/72 94 L 08/28/17 23:08 22 88 L 08/28/17 22:27 118 H 25 H 08/28/17 22:13 99.1 F 125 H 30 H 138/72 95 Intake and Output 08/28/17 08/29/17 08/29/17 22:59 06:59 14:59 Intake Total 122.856 94.18 Output Total 900 Balance -777.144 94.18 Intake: IV 120 Sodium Chloride 0.9% 1, 120 000 ml @ 20 mls/hr IV . Q24H [facility] Rx#:[id number] Intake, IV Titration 2.856 94.18 Amount Morphine Sulfate (100 mg/ 2.856 94.18 2 ml) 100 mg In Sodium Chloride 0.9% 100 ml @ 1 MG/HR 1.02 mls/hr IV . Q24H [facility] Rx#:[id number] Output: Urine 900 Other: Voiding Method Urinal Weight 60.328 kg 60.328 kg 51-year-old white male, thin, mildly short of breath, with frequent congested productive cough with production of yellow sputum, resting in bed - Constitutional General appearance: mild distress, thin - EENT Eyes: EOMI, PERRLA ENT: NA/AT Ears: bilateral: normal - Neck Moderate subcu emphysema on the right side of patient's neck, right upper chest and right upper back Neck: no lymphadenopathy, normal ROM Carotids: bilateral: upstroke normal - Respiratory Respiratory: bilateral: rhonchi (A few rhonchi) - Cardiovascular Rhythm: regular Heart sounds: normal: S1, S2 dorsalis pedis Peripheral Pulses: bilateral: Normal - Gastrointestinal General gastrointestinal: no organomegaly, soft, no tenderness - Neurologic Neurologic: CNII-XII intact - Musculoskeletal Musculoskeletal: generalized weakness, strength equal bilaterally - Psychiatric Psychiatric: A&O x's 3, appropriate affect, intact judgment & insight Results - Laboratory Findings CBC and BMP: 08/28/17 20:35 08/28/17 20:35 PT/INR, D-dimer PT 10.1 sec (9.0-12.0) 08/28/17 20:35 INR 1.0 (<1.2) 08/28/17 20:35 Abnormal lab findings: Abnormal Labs 08/28/17 08/28/17 08/28/17 20:35 20:35 20:35 RBC 3.60 L Hgb 11.7 L Hct 36.0 L RDW 20.4 H Lymphocytes # (Manual) 0.52 L Metamyelocytes # (Man) 0.26 H APTT Sodium 136 L Chloride 93 L Carbon Dioxide 32 H BUN 27 H POC Glucose (mg/dL) Troponin I 0.071 H* Albumin 3.4 L 08/28/17 08/28/17 20:35 23:44 RBC Hgb Hct RDW Lymphocytes # (Manual) Metamyelocytes # (Man) APTT 21.9 L Sodium Chloride Carbon Dioxide BUN POC Glucose (mg/dL) 109 H Troponin I Albumin - Diagnostic Findings Chest x-ray: report reviewed, image reviewed Assessment and Plan Plan: Assessment: #1. Acute on chronic hypoxemic respiratory failure secondary to development of subcutaneous emphysema, and the chest x-ray findings were negative for any evidence of pneumothorax or pneumomediastinum #2. Recent hospitalization for right upper lung pneumonia, COPD exacerbation and purulent tracheobronchitis, patient had a bronchoscopy with BAL, and the bronch washings are positive for Dary glabrata, and Dary tropicalis, cytology was negative for malignancy. Patient was treated with Zosyn, Levaquin , and Diflucan improved, and was discharged to the subacute rehab on 08/28/2017 #3. Advanced COPD, oxygen dependent #4. Nicotine dependence, currently in remission #5. History of myelodysplastic syndrome #6. Anemia of chronic disease #7. Chronic right apical lung scarring, related to previous history of bilateral spontaneous pneumothoraxes and pleurodesis #8. Frequent hospitalizations for recurrent lung infections #9. History of abdominal aortic aneurysm #10. Anxiety, depression #11. Poor functional status Plan: At this time the patient and the family have decided to proceed with comfort care protocol, and hospice enrollment. And this is reasonable based on patient' s deteriorating clinical status, significant discomfort related to respiratory distress secondary to poor lung capacity, recurrent hospitalizations for lung infections, poor functional status, multiple comorbidities, poor quality of life , to preserve patient's peace comfort and dignity. I performed a history & physical examination of the patient and discussed their management with my nurse practitioner, Corie Dasilva. I reviewed the nurse practitioner's note and agree with the documented findings and plan of care. Lung sounds are positive for a few scattered rhonchi, and there is crepitus present over the areas of right neck and right upper chest and right upper back subcutaneous emphysema. The findings and the impression was discussed with the patient. I attest to the documentation by the nurse practitioner. Time with Patient: Greater than 30
--- NOTE | 2017-08-31 17:38 | P.DS ---
Providers Date of admission: 08/28/17 22:49 Attending physician: Blake Cherry Consults: 08/28/17 22:47 Consult Physician Routine Consulting Provider: Peace Latham Consult Reason/Comments: known Do you want consulting provider notified?: Yes Primary care physician: [facility] Hospital Course: Patient was admitted as inpatient hospice on 08/22/2017 please refer to nursing documentation for further details of time of . Patient Condition at Discharge: Critical Plan - Discharge Summary Discharge Rx Participant: Yes New Discharge Prescriptions: No Action Tiotropium 18 Mcg/Puff [Spiriva] 1 cap INHALATION RT-DAILY Fluticasone/Salmeterol [Advair 250-50 Diskus] 1 puff INHALATION RT-BID Montelukast [Singulair] 10 mg PO HS Aspirin EC [Ecotrin Low Dose] 81 mg PO DAILY #30 tablet. Atorvastatin [Lipitor] 20 mg PO HS #30 tab Epoetin Joe [Procrit] 20,000 unit SQ PADILLA buPROPion XL [Wellbutrin XL] 150 mg PO DAILY Docusate [Colace] 100 mg PO BID #60 cap Fluconazole [Diflucan] 200 mg PO DAILY 7 Days #14 tab Lactulose [Cephulac] 30 gm PO TID #2700 ml Pantoprazole [Protonix] 40 mg PO AC-BRKFST #30 tablet. Amoxicillin/Potassium Clav [Augmentin 875-125 Tablet] 1 tab PO BID #14 tab ALPRAZolam [Xanax] 0.5 mg PO TID PRN #10 tab PRN Reason: Anxiety Ipratropium-Albuterol Nebulize [Duoneb 0.5 mg-3 mg/3 ml Soln] 3 ml INHALATION Q4H PRN ampul.neb PRN Reason: Shortness Of Breath Or Wheezing Ipratropium-Albuterol Nebulize [Duoneb 0.5 mg-3 mg/3 ml Soln] 3 ml INHALATION RT-QID ampul.neb predniSONE 10 mg PO DIRECTED #1 tab Promethaz-Cod 6.25-10 mg/5 ml [Phenergan with Codeine] 5 ml PO Q6H PRN #30 ml PRN Reason: Cold Symptoms fentaNYL 25MCG/HR PATCH [Duragesic 25MCG/HR] 1 patch TRANSDERM Q72H #1 patch oxyCODONE HCL/ACETAMINOPHEN [Percocet 10-325 mg] 1 tab PO Q6HR PRN #12 tab PRN Reason: Pain predniSONE 20 mg PO DAILY #0 LORazepam [Ativan] 0.5 mg PO Q6HR PRN #10 tab PRN Reason: Anxiety Discharge Medication List Fluticasone/Salmeterol [Advair 250-50 Diskus] 1 puff INHALATION RT-BID 10/09/16 [History] Tiotropium 18 Mcg/Puff [Spiriva] 1 cap INHALATION RT-DAILY 10/09/16 [History] Montelukast [Singulair] 10 mg PO HS 01/05/17 [History] Aspirin EC [Ecotrin Low Dose] 81 mg PO DAILY #30 tablet. 05/30/17 [Rx] Atorvastatin [Lipitor] 20 mg PO HS #30 tab 05/30/17 [Rx] Epoetin Joe [Procrit] 20,000 unit SQ PADILLA 08/10/17 [History] buPROPion XL [Wellbutrin XL] 150 mg PO DAILY 08/19/17 [History] Amoxicillin/Potassium Clav [Augmentin 875-125 Tablet] 1 tab PO BID #14 tab 08/25 [Rx] Docusate [Colace] 100 mg PO BID #60 cap 08/25/17 [Rx] Fluconazole [Diflucan] 200 mg PO DAILY 7 Days #14 tab 08/25/17 [Rx] Lactulose [Cephulac] 30 gm PO TID #2700 ml 08/25/17 [Rx] Pantoprazole [Protonix] 40 mg PO AC-BRKFST #30 tablet. 08/25/17 [Rx] ALPRAZolam [Xanax] 0.5 mg PO TID PRN #10 tab 08/26/17 [Rx] Ipratropium-Albuterol Nebulize [Duoneb 0.5 mg-3 mg/3 ml Soln] 3 ml INHALATION Q4H PRN ampul.neb 08/26/17 [Rx] Ipratropium-Albuterol Nebulize [Duoneb 0.5 mg-3 mg/3 ml Soln] 3 ml INHALATION RT -QID ampul.neb 08/26/17 [Rx] Promethaz-Cod 6.25-10 mg/5 ml [Phenergan with Codeine] 5 ml PO Q6H PRN #30 ml [Rx] fentaNYL 25MCG/HR PATCH [Duragesic 25MCG/HR] 1 patch TRANSDERM Q72H #1 patch [Rx] oxyCODONE HCL/ACETAMINOPHEN [Percocet 10-325 mg] 1 tab PO Q6HR PRN #12 tab 08/26 [Rx] predniSONE 10 mg PO DIRECTED #1 tab 08/26/17 [Rx] predniSONE 20 mg PO DAILY #0 08/26/17 [Rx] LORazepam [Ativan] 0.5 mg PO Q6HR PRN #10 tab 08/28/17 [Rx] Follow up Appointment(s)/Referral(s): [facility],Clinic [Primary Care Provider] - 1-2 days Discharge Disposition: HOME WITH HOSPICE - Preliminary Cause of Preliminary Cause of : COPD
--- NOTE | 2017-09-11 14:01 | CDI ---
Last Revision, April 2017 Documentation Clarification Form Date: 09/11/17 From: Marcelle Bautista Lauren Isabel, Physician Assistant Hours-8:30 am & 5 pm M-F Admit Date: 08/28/2017 10:49:00 PM Patient Name: Wicho Burrows Visit Number: [id number] Discharge Date: 08/29/17 ATTENTION: The Clinical Documentation Specialists (CDI) and [facility] Coding Staff appreciate your assistance in clarifying documentation. Please respond to the clarification below the line at the bottom and electronically sign. The CDI & [facility] Coding staff will review the response and follow-up if needed. Please note: Queries are made part of the Legal Health Record. If you have any questions, please contact the author of this message via ITS. Dr. Xiomara Allison Conflicting documentation has been found in the medical record. Per the consult the STOCK TRANSFER CLERK documents that the CXR was negative for any evidence of pneumothorax. Dr Latham the STOCK TRANSFER CLERK physician documents that the acute on chronic respiratory failure was secondary to right pneumothorax and development of subcutanous emphysema. The CXR impression: new extensive subcutanous emphysema compared to old exam. I see no pneumothorax or pneumomediastinum. He was given nebulizer treatments , IV Solumedrol, MS IVP. He was made a DNR and transferred to hospice facility. In your opinion what is the most clinically appropriate principal diagnosis diagnosis for this patient? Acute on chronic hypoxic respiratory failure Subcutaneous emphysema Pneumothorax Other explanation of clinical findings Please continue to document in your progress notes and discharge summary in order to capture severity of illness and risk of mortality. Include clinical findings that support your diagnosis. I'm not as possible with for this query NILAY
== END 2017-08-29 12:16 | disposition hospice, inpatient (51) | DRG 199 ==
LOC: EC 22:07 → 6ICU 22:49 → 5ONC 08-29 06:49
PROVIDERS: ADMIT Hospitalist; ATTEND Hospitalist
PROC: 5A09357 Assistance with Respiratory Ventilation, Less than 24 Consecutive Hours, Continuous Positive Airway Pressure (ICD-10-PCS; principal; 2017-08-28)
DX: J93.9 Pneumothorax, unspecified (principal); J96.21 Acute and chronic respiratory failure with hypoxia; B37.1 Pulmonary candidiasis; R64 Cachexia; Z68.1 Body mass index [BMI] 19.9 or less, adult; Z99.81 Dependence on supplemental oxygen; J98.2 Interstitial emphysema; D46.9 Myelodysplastic syndrome, unspecified; J20.9 Acute bronchitis, unspecified; Z51.5 Encounter for palliative care; Z66 Do not resuscitate; D63.8 Anemia in other chronic diseases classified elsewhere; D53.9 Nutritional anemia, unspecified; I71.4 Abdominal aortic aneurysm, without rupture; K76.9 Liver disease, unspecified; F41.9 Anxiety disorder, unspecified; F32.9 Major depressive disorder, single episode, unspecified; F17.201 Nicotine dependence, unspecified, in remission; N40.0 Benign prostatic hyperplasia without lower urinary tract symptoms; Z79.82 Long term (current) use of aspirin; Z79.891 Long term (current) use of opiate analgesic; Z79.51 Long term (current) use of inhaled steroids; Z79.899 Other long term (current) drug therapy; Z71.6 Tobacco abuse counseling; Z86.79 Personal history of other diseases of the circulatory system; Z87.01 Personal history of pneumonia (recurrent); Z86.73 Personal history of transient ischemic attack (TIA), and cerebral infarction without residual deficits; Z82.49 Family history of ischemic heart disease and other diseases of the circulatory system; Z80.1 Family history of malignant neoplasm of trachea, bronchus and lung; Z80.7 Family history of other malignant neoplasms of lymphoid, hematopoietic and related tissues
CPT/HCPCS: 36415; 71045; 80053; 82550; 82553; 83880; 84484; 85025; 85610; 85730; 93005; 94640; 94660; 96374; 99291

== ENCOUNTER 2017-08-29 12:19 | Inpatient (IN) | payer MEDICAID ==
[2017-08-29 12:50] VITALS: BMI 18.0
[2017-08-29] MEDS ORDERED: SCOPOLAMINE 1.5MG/72HR PATCH TRANSDERM PRN (13:32)
[2017-08-29] MEDS ORDERED: ONDANSETRON 4 MG/2 ML VIAL IVP PRN (13:36)
[2017-08-29] MEDS ORDERED: MORPHINE ORAL SOL CONC 20 MG/ML BOTTLE PO SCH ×2 (14:00→17:00)
[2017-08-29] MEDS ORDERED: MORPHINE CONC SOLN 10mg/0.5mL ORAL SYRG PO SCH (14:30)
[2017-08-29] MEDS: MORPHINE SULFATE (100 MG/2 ML) 100 MG in SODIUM CHLORIDE 0.9% 100 ML IV SCH (15:45)
[2017-08-29] MEDS: LORazepam 1 MG TAB PO SCH ×2 (16:45→18:26)
--- NOTE | 2017-08-29 17:22 | HP ---
HISTORY AND PHYSICAL DATE OF SERVICE: 08/29/2017 CHIEF COMPLAINT: Shortness of breath. This 51-year-old gentleman who had a past history of multiple medical problems including COPD, history of CVA, TIA, liver disease, memory impairment, myelodysplastic syndrome being followed by Dr. Corrigan in the outpatient setting, was recently admitted with COPD exacerbation. The possibility of hospice was discussed with the patient, but however the patient opted for NO CODE, NO CPR and patient was sent to [facility] for rehab. In the rehab the patient had significant shortness of breath and respiratory difficulties and patient was taken to [facility] and admitted for further evaluation and treatment. Currently after discussion the patient has apparently wants hospice and hospice is consulted. The patient is also started on morphine drip and the patient is being admitted for further evaluation and treatment. PAST MEDICAL HISTORY: History of COPD, history of normocytic anemia, history of dementia, history of myelodysplastic syndrome, history of gait dysfunction. MEDICATIONS: Prior to admission include home medications: 1. Prednisone 20 mg p.o. daily and 10 mg p.r.n. 2. Oxycodone 1 tablet every 6 hours p.r.n. 3. Duragesic patch q.72h hours. 4. Wellbutrin XR 150 mg. 5. Spiriva 1 puff daily. 6. Phenergan 5 mL q.6h p.r.n. 7. Protonix 40 mg daily. 8. Singular 10 mg q.h.s. 9. Flexeril 30 mg p.o. t.i.d. 10.Ativan 0.5 mg every 6 hours p.r.n. 11.DuoNeb q.i.d. 12.Advair 250/50, 1 puff b.i.d. 13.Diflucan 200 mg. 14.Procrit 20,000 subcu. 15.Colace 100 mg p.o. b.i.d. 16.Lipitor 20 mg q.h.s. 17.Aspirin 81 mg p.o. daily. 18.Augmentin 1 tab p.o. b.i.d. 19.Xanax 0.5 p.o. t.i.d. p.r.n. ALLERGIES: None. FAMILY HISTORY: History of cancer, CAD, lung cancer, lymphoma. SOCIAL HISTORY: No history alcohol intake. Previous smoker. REVIEW OF SYSTEMS: Review of systems could not be taken; the patient is drowsy. PHYSICAL EXAM: The patient is drowsy. The pulse is 80, blood pressure is 130/72, respiration 26, temp is normal. Pulse ox 94% on BiPAP. HEENT: conjunctivae normal. NECK: No jugular venous distention. CARDIOVASCULAR: S1, S2. RESPIRATIONS. Breath sounds diminished in the bases. A few scattered rhonchi and crackles. ABDOMEN: Soft, nontender. LEGS: No edema, no swelling. NERVOUS SYSTEM: Diffusely weak. LAB: Current labs are reviewed. ASSESSMENT: 1. Chronic obstructive pulmonary disease exacerbation with acute hypoxic respiratory failure. 2. History of recent right upper lobe pneumonia. 3. Status of bronchoscopy and as well as Dary tropicalis and Dary glabrata from the cultures. 4. Continue nicotine dependence. 5. Dementia. 6. History of myelodysplastic. 7. Gait dysfunction. 8. NO CODE, NO CPR, NO VENT. 9. Hospice measures. RECOMMENDATIONS AND DISCUSSION: In this 51-year-old gentleman who presented with multiple complex medical issues, at this time I recommend continue the current medications, continue the hospice. Continue with p.r.n. bronchodilators. Closely follow with the Pulmonary. Guarded prognosis because of multiple complex medical issues. Further recommendations to follow. MMODL / IJN: [id number] /
[2017-08-29] MEDS: MORPHINE CONC SOLN 10mg/0.5mL ORAL SYRG PO SCH ×2 (18:26→20:29)
[2017-08-29] MEDS: ATROPINE OPHTH SOLN 1% 5ML BTL SUBLINGUAL PRN (20:28)
[2017-08-29] MEDS: LORazepam 2 MG/ML INJ IV PRN (20:34)
[2017-08-30] MEDS: MORPHINE CONC SOLN 10mg/0.5mL ORAL SYRG PO SCH ×3 (00:21→10:41)
[2017-08-30] MEDS: LORazepam 1 MG TAB PO SCH ×3 (00:22→10:41)
[2017-08-30] MEDS: MORPHINE SULFATE (100 MG/2 ML) 100 MG in SODIUM CHLORIDE 0.9% 100 ML IV SCH ×3 (02:23→20:10)
[2017-08-30] MEDS: LORazepam 2 MG/ML INJ IV PRN ×3 (04:30→18:20)
[2017-08-30] MEDS: ACETAMINOPHEN SUPPOSITORY 650 MG SUPP RECTAL PRN ×2 (04:45→15:45)
[2017-08-30] MEDS: ATROPINE OPHTH SOLN 1% 5ML BTL SUBLINGUAL PRN (04:58)
[2017-08-30] MEDS ORDERED: BISACODYL 10 MG SUPP RECTAL PRN (09:07)
--- NOTE | 2017-08-30 09:14 | P.PN ---
Subjective Patient is presently inpatient hospice for symptom management patient pain is fairly well controlled now. Objective - Vital Signs Vital signs: Vital Signs Temp 97.7 F 08/30/17 06:27 Pulse Resp BP Pulse Ox Intake & Output 08/29/17 08/30/17 08/30/17 18:59 06:59 18:59 Intake Total 17.361 22.295 2.754 Output Total 1700 900 Balance -1682.639 -877.705 2.754 Weight 60.32 kg Intake: Intake, IV Titration 17.361 22.295 2.754 Amount Morphine Sulfate (100 mg/ 17.361 22.295 2.754 2 ml) 100 mg In Sodium Chloride 0.9% 100 ml @ 10 MG/HR 10.2 mls/hr IV . Q10H [facility] Rx#:[id number] Output: Urine 1700 900 Other: Voiding Method Indwelling Catheter Indwelling Catheter - Exam Patient is not in significant pain at this time Assessment and Plan Plan: -General inpatient hospice: Symptomatic management -COPD advanced multiple hospitalizations recently History of cirrhosis Myelodysplastic syndrome
[2017-08-30] MEDS: LORazepam 2 MG/ML INJ IV SCH ×3 (09:48→20:10)
[2017-08-30 15:48] VITALS: TEMP 102.4
--- NOTE | 2017-09-09 06:54 | DS ---
DISCHARGE SUMMARY The preliminary cause of is chronic obstructive pulmonary disease acute exacerbation. OTHER DIAGNOSES: 1. Acute hypoxic respiratory failure. 2. Recent right upper lobe pneumonia. 3. Possible candidal pneumonia. 4. Nicotine dependence. 5. Dementia. 6. History of myelodysplastic syndrome. HISTORY OF PRESENT ILLNESS: This 51-year-old gentleman with a past medical history of multiple medical problems admitted with significant shortness of breath. The patient also had multiple complex medical issues. Patient also had multiple hospital admissions and the patient was transitioned to hospice and subsequently because of the above-mentioned medical issues. Please refer to the multiple progress notes and details for further information. The prognosis remained extremely guarded throughout the hospital stay. MMODL / IJN: [id number] /
== END 2017-08-30 23:37 | disposition expired | DRG 951 ==
LOC: 5ONC 12:19
PROVIDERS: ADMIT Hospitalist; ATTEND Hospitalist
DX: Z51.5 Encounter for palliative care (principal); J96.01 Acute respiratory failure with hypoxia; J44.1 Chronic obstructive pulmonary disease with (acute) exacerbation; R26.9 Unspecified abnormalities of gait and mobility; Z66 Do not resuscitate; F17.200 Nicotine dependence, unspecified, uncomplicated; K74.60 Unspecified cirrhosis of liver; D46.9 Myelodysplastic syndrome, unspecified; F03.90 Unspecified dementia, unspecified severity, without behavioral disturbance, psychotic disturbance, mood disturbance, and anxiety; Z86.73 Personal history of transient ischemic attack (TIA), and cerebral infarction without residual deficits; Z79.899 Other long term (current) drug therapy; Z79.82 Long term (current) use of aspirin; Z79.51 Long term (current) use of inhaled steroids; Z80.1 Family history of malignant neoplasm of trachea, bronchus and lung; Z82.49 Family history of ischemic heart disease and other diseases of the circulatory system; Z80.7 Family history of other malignant neoplasms of lymphoid, hematopoietic and related tissues; Z87.01 Personal history of pneumonia (recurrent)